=== PATIENT | female | born 1950 | race Caucasian/White ===

== ENCOUNTER 2017-04-27 21:04 | Inpatient (IN) | payer OTHER ==
[~2017-04-27] VITALS: Ht 154.9 cm; Wt 104.0 kg
[~2017-04-27 21:04] MED LIST: ASPEC81 PO; CHOLCAP5 PO; DIGO0.2518 PO; FURO80TA63 PO; GLC/500 PO; GLC5 PO; GLC500 PO; MAGN400T6 PO; NTRGSL/4 UT; OXGN; SIMV80TA2 PO; WARF3TAB PO
[2017-04-27 21:33] LABS: HEMATOCRIT 43.1 % (37-47); MEAN CELL VOLUME 92.3 fL (80-100); MEAN CORPUSCULAR HEMOGLOBIN 28.5 pg (25-34); MEAN CORPUSCULAR HGB CONC 30.9 g/dl (32-36); MEAN PLATELET VOLUME 9.7 fL (7.4-10.4); PLATELET COUNT 211 K/uL (130-400); RED BLOOD COUNT 4.67 M/uL (4.2-5.4); WHITE BLOOD COUNT 9.34 K/uL (4.8-10.8)
--- NOTE | 2017-04-27 21:46 | DIAGNOSTIC IMAGING REPORT ---
CHEST ONE VIEW PORTABLE CLINICAL HISTORY: Atypical chest pain COMPARISON STUDY: 03/14/2015 FINDINGS: There is borderline cardiac enlargement. There is mild central vascular prominence without evidence of overt edema. There is no focal pulmonary consolidation. There are no pleural effusions.[ IMPRESSION: Mild central vascular prominence without evidence of overt edema. No evidence of focal pulmonary consolidation Electronically signed by: Christopher Delacruz M.D. 04/27/2017 9:45 PM Dictated Date/Time: 04/27/2017 9:44 PM
[2017-04-27 22:11] LABS: POTASSIUM 4.3 mmol/L (3.5-5.1); SODIUM 146 mmol/L (136-145)
[2017-04-27 22:23] LABS: BLOOD UREA NITROGEN 26 mg/dl (7-18); BUN/CREATININE RATIO 32.1 (10-20); CALCIUM 10.1 mg/dl (8.5-10.1); CARBON DIOXIDE 29 mmol/L (21-32); CHLORIDE 106 mmol/L (98-107); CKMB/CK RATIO 1.3 (0-3.0); CREATININE 0.82 mg/dl (0.60-1.20); GLUCOSE 177 mg/dl (70-99)
[2017-04-27] MEDS ORDERED: INSDGIPEN SQ (22:26)
[2017-04-27] MEDS ORDERED: WARF-285 PO (22:26)
[2017-04-27] MEDS ORDERED: REPA1TAB10 PO (22:26)
[2017-04-27] MEDS ORDERED: WARF3TAB PO (22:26)
[2017-04-27] MEDS ORDERED: PRED10TA PO (22:26)
[2017-04-27] MEDS ORDERED: ASPEC81 PO (22:26)
[2017-04-27] MEDS ORDERED: CHOL1TAB42 PO (22:26)
[2017-04-27] MEDS ORDERED: GLC/500 PO (22:26)
[2017-04-27] MEDS ORDERED: LNX25 PO (22:34)
[2017-04-27] MEDS ORDERED: MAGN400T6 PO (22:34)
[2017-04-27 22:41] LABS: BASO % 0.4 %; BASO ABS # 0.04 K/uL (0-0.2); COMPLETE YES; EOS % 1.3 %; IG% 0.4 %; LYMPH % 27.8 %; MONO % 4.1 %
[2017-04-27 22:57] LABS: INR 2.1 (0.9-1.1); PROTHROMBIN TIME (PATIENT) 23.7 SECONDS (9.0-12.0)
[2017-04-27 23:03] LABS: ALKALINE PHOSPHATASE 80 U/L (45-117); ALT/SGPT 19 U/L (12-78); AST/SGOT 12 U/L (15-37); MAGNESIUM 1.8 mg/dl (1.8-2.4)
[2017-04-27] MEDS ORDERED: LISI20TA3 PO (23:34)
[2017-04-27] MEDS ORDERED: GABA-112 PO (23:35)
[2017-04-27] MEDS ORDERED: METO-551 PO (23:39)
--- NOTE | 2017-04-27 23:44 | EMERGENCY ROOM VISIT NOTE ---
History Report prepared by Thais: Fe Gutiérrez Under the Supervision of: Dr. Shreyas Gallegos D.O. First contact with patient: 21:16 Chief Complaint: CHEST PAIN Stated Complaint: CHEST PAIN Nursing Triage Summary: Pt c/o Chest pain starting three days ago, intermittent at time, became constant today. Midsternal/left chest pain. Pt states she feels like it is anxiety she let go too long. Pt has history of Afib, take coumadin at home. Pt complained of increase shortness of breath through day. History of Present Illness The patient is a 66 year old female who presents to the Emergency Room with complaints of intermittent chest pressure beginning yesterday. The patient states that the chest pressure is dull and in the center of her chest. She notes that she has associated shortness of breath and left arm numbness that occur intermittently with her chest pain. She reports that she has a history of diabetes, atrial fibrillation, hypertension, and high cholesterol. The patient states that she received nitroglycerin [employer] and her chest pain has improved. She notes that she is on 2L of oxygen at home for COPD. She denies any headache, change in vision, fevers, vomiting, and diarrhea. Source of History: patient Onset: yesterday Position: chest Quality: pressure Timing: intermittent Modifying Factors (Relieving): other (nitroglycerin) Associated Symptoms: + SOB, No diarrhea, No fevers, No headache, No nausea, No vomiting Note: Pt complains of left arm numbness. Review of Systems See HPI for pertinent positives & negatives. A total of 10 systems reviewed and were otherwise negative. Past Medical & Surgical Medical Problems: (1) Anemia (2) CHF (congestive heart failure) (3) COPD (chronic obstructive pulmonary disease) (4) Diabetes mellitus, type II (5) Dyslipidemia (6) HTN (hypertension) (7) Hypocalcemia (8) Hypomagnesemia (9) Lumbar radiculopathy Surgical Problems: (1) History of hysterectomy (2) History of total knee replacement Family History Colon cancer Coronary artery disease FATHER ( OF CT AT AGE 71 ) BROTHER SISTER Diabetes mellitus MOTHER SISTER Social History Smoking Status: Current Some Day Smoker Drug Use: none Marital Status: Housing Status: lives alone Occupation Status: retired Current/Historical Medications Scheduled Aspirin (Aspirin EC Low Dose), 81 MG PO DAILY Cholecalciferol (Vitamin D), 5,000 UNITS PO DAILY Digoxin (Digoxin), 0.25 MG PO DAILY Furosemide (Lasix), 40 MG PO DAILY Gabapentin (Neurontin), 300 MG PO HS Insulin Glargine (Lantus Solostar), 38 UNITS SQ QAM Lisinopril (Prinivil), 20 MG PO QAM Magnesium Oxide (Mag-Ox), 400 MG PO BID Magnesium Oxide (Mag-Ox), 400 MG PO BID Metformin Hcl (Glucophage), 1,000 MG PO BID Metformin Hcl (Glucophage), 500 MG PO LUNCH Metoprolol Tartrate (Lopressor), 50 MG PO BID Nitroglycerin (Nitrostat), 0.4 MG UT PRN Prednisone (Prednisone), 10 MG PO UD Repaglinide (Repaglinide), 2 MG PO AC Simvastatin (Zocor), 40 MG PO HS Warfarin Sodium (Warfarin Sodium), 4.5 MG PO 2XWK Warfarin Sodium (Coumadin), 3 MG PO 5XWK Allergies Coded Allergies: Penicillins (Verified Allergy, Mild, 03/14/15) Rofecoxib (Verified Allergy, Unknown, 03/14/15) Sulindac (Verified Allergy, Unknown, 03/14/15) Physical Exam Vital Signs Date Time Temp Pulse Resp B/P Pulse Ox O2 Delivery O2 Flow Rate FiO2 04/27/17 22:34 105 27 160/90 94 Nasal Cannula 2.0 04/27/17 22:32 04/27/17 22:04 121 28 95 Nasal Cannula 2.0 04/27/17 22:02 154/82 04/27/17 22:00 173/81 04/27/17 21:34 103 21 96 04/27/17 21:33 04/27/17 21:22 97 04/27/17 21:05 36.8 99 20 166/107 95 Nasal Cannula 2.0 04/27/17 21:05 166/107 04/27/17 21:05 96 Nasal Cannula Physical Exam GENERAL: alert, sitting up well appearing, disheveled, chronically ill appearing , no distress, non-toxic EYE EXAM: normal conjunctiva OROPHARYNX: no exudate, no erythema, lips, buccal mucosa, and tongue normal and mucous membranes are moist NECK: supple, no nuchal rigidity, no adenopathy, non-tender LUNGS: Clear to auscultation. Normal chest wall mechanics HEART: no murmurs, S1 normal and S2 normal ABDOMEN: abdomen soft, non-tender, normo-active bowel sounds, no masses, no rebound or guarding. BACK: Back is symmetrical on inspection and there is no deformity, no midline tenderness, no CVA tenderness. SKIN: no rashes and no bruising UPPER EXTREMITIES: upper extremities are grossly normal. LOWER EXTREMITIES: Calves are equal bilaterally with mild pitting edema. NEURO EXAM: Normal sensorium, cranial nerves II-XII grossly intact, normal speech, no gross weakness of arms, no gross weakness of legs. Medical Decision & Procedures ER Provider Diagnostic Interpretation: Radiology results as stated below per my review and the radiologist's interpretation: CHEST ONE VIEW PORTABLE FINDINGS: There is borderline cardiac enlargement. There is mild central vascular prominence without evidence of overt edema. There is no focal pulmonary consolidation. There are no pleural effusions.[ IMPRESSION: Mild central vascular prominence without evidence of overt edema. No evidence of focal pulmonary consolidation Electronically signed by: Christopher Delacruz M.D. 04/27/2017 9:45 PM Dictated Date/Time: 04/27/2017 9:44 PM Laboratory Results 04/27/17 20:42 Red Blood Count 4.67, Mean Corpuscular Volume 92.3, Mean Corpuscular Hemoglobin 28.5, Mean Corpuscular Hemoglobin Concent 30.9, Mean Platelet Volume 9.7, Neutrophils (%) (Auto) 66.0, Lymphocytes (%) (Auto) 27.8, Monocytes (%) (Auto) 4.1, Eosinophils (%) (Auto) 1.3, Basophils (%) (Auto) 0.4, Neutrophils # (Auto) 6.16, Lymphocytes # (Auto) 2.60, Monocytes # (Auto) 0.38, Eosinophils # (Auto) 0.12, Basophils # (Auto) 0.04 04/27/17 20:42 Test 04/27/17 20:42 04/27/17 23:27 White Blood Count 9.34 K/uL (4.8-10.8) Red Blood Count 4.67 M/uL (4.2-5.4) Hemoglobin 13.3 g/dL (12.0-16.0) Hematocrit 43.1 % (37-47) Mean Corpuscular Volume 92.3 fL (80-100) Mean Corpuscular Hemoglobin 28.5 pg (25-34) Mean Corpuscular Hemoglobin Concent 30.9 g/dl (32-36) Platelet Count 211 K/uL (130-400) Mean Platelet Volume 9.7 fL (7.4-10.4) Neutrophils (%) (Auto) 66.0 % Lymphocytes (%) (Auto) 27.8 % Monocytes (%) (Auto) 4.1 % Eosinophils (%) (Auto) 1.3 % Basophils (%) (Auto) 0.4 % Neutrophils # (Auto) 6.16 K/uL (1.4-6.5) Lymphocytes # (Auto) 2.60 K/uL (1.2-3.4) Monocytes # (Auto) 0.38 K/uL (0.11-0.59) Eosinophils # (Auto) 0.12 K/uL (0-0.5) Basophils # (Auto) 0.04 K/uL (0-0.2) RDW Standard Deviation 48.5 fL (36.4-46.3) RDW Coefficient of Variation 14.4 % (11.5-14.5) Immature Granulocyte % (Auto) 0.4 % Immature Granulocyte # (Auto) 0.04 K/uL (0.00-0.02) Prothrombin Time 23.7 SECONDS (9.0-12.0) Prothromb Time International Ratio 2.1 (0.9-1.1) Anion Gap 11.0 mmol/L (3-11) Est Creatinine Clear Calc Drug Dose 72.2 ml/min Estimated GFR () 85.8 Estimated GFR (Non- 74.0 BUN/Creatinine Ratio 32.1 (10-20) Calcium Level 10.1 mg/dl (8.5-10.1) Magnesium Level 1.8 mg/dl (1.8-2.4) Total Bilirubin 0.3 mg/dl (0.2-1) Direct Bilirubin < 0.1 mg/dl (0-0.2) Aspartate Amino Transf (AST/SGOT) 12 U/L (15-37) Alanine Aminotransferase (ALT/SGPT) 19 U/L (12-78) Alkaline Phosphatase 80 U/L (45-117) Total Creatine Kinase 55 U/L (26-192) Creatine Kinase MB 0.7 ng/ml (0.5-3.6) Creatine Kinase MB Ratio 1.3 (0-3.0) Troponin I 0.021 ng/ml (0-0.045) Total Protein 6.7 gm/dl (6.4-8.2) Albumin 3.9 gm/dl (3.4-5.0) Lipase 1003 U/L (73-393) Laboratory results per my review. ECG Indication: chest pain Rate (beats per minute): 110 Rhythm: atrial fibrillation Findings: ST depression (Anterior and Lateral), other (Poor baseline in inferior leads, early R wave progression is noted) Comparison ECG Date: 15-MAR-2015 Change: ST depression in anterior and lateral leads is new. ED Course ED COURSE: Vital signs were reviewed and showed hypertension The patients medical record was reviewed The above diagnostic studies were performed and reviewed. ED treatments and interventions as stated above. 2115: The patient was evaluated in room B9. A complete history and physical examination was performed. 2235: I reviewed the patient's case with Dr. Addison of [facility]. He will evaluate the patient for further management. 2246: Upon reevaluation, the patient is doing well.I discussed my findings with the patient and she understands and agrees with the treatment plan. Based on the patients age, coexisting illnesses, exam and lab findings the decision to treat as an inpatient was made. The patient remained stable while under my care. The patient will be evaluated for further management. Medical Decision Differential diagnoses includes but is not limited to acute coronary syndrome, myocardial infarction, pericarditis, pulmonary embolus, aortic dissection, pneumonia, pneumothorax, musculoskeletal, shingles, esophageal. Medication Reconciliation: I attest that I have personally reviewed the patient' s current medication list. Blood pressure screening: Patient was found to have an elevated blood pressure and was referred to their primary doctor for recheck and further treatment. Patient is a 66-year-old female who presents the ER for midsternal chest pain associated with shortness of breath and left arm pain. She is brought in by EMS. EKG did show new ST depressions in the lateral leads. She does have A. fib. INR was therapeutic. Chest x-ray was unremarkable. Lipase was elevated at 1000. Troponin is detectable but not positive. Based on her symptoms I'm concerned that this is cardiac. She was completed pain-free while in the ER. I discussed her case with internal medicine and she'll be worked up further for her chest pain and elevation in her lipase. Consults Time Called: 2229 Consulting Physician: Dr. Cyn Max Returned Call: 2235 I reviewed the patient's case with Dr. Addison of [facility]. He will evaluate the patient for further management. Impression Primary Impression: Acute coronary syndrome Additional Impression: Pancreatitis Scribe Attestation The scribe's documentation has been prepared under my direction and personally reviewed by me in its entirety. I confirm that the note above accurately reflects all work, treatment, procedures, and medical decision making performed by me. Departure Information Dispostion Being Evaluated By Hospitalist Referrals Kevin De Oliveira M.D. (MEDICAL) (PCP) Patient Instructions My [facility] Problem Qualifiers Additional Impression: Pancreatitis Chronicity: acute Pancreatitis type: unspecified pancreatitis type Acute pancreatitis complication: unspecified Qualified Codes: K85.90 - Acute pancreatitis without necrosis or infection, unspecified
[2017-04-28] MEDS ORDERED: LEVALBUTEROL/IPRATROPIUM NEB INH STA (00:27)
[2017-04-28] MEDS ORDERED: LEVALBUTEROL 1.25MG/0.5ML NEB INH STA (00:29)
[2017-04-28] MEDS ORDERED: IPRATROPIUM BROMIDE NEB SOLN 0.02% 2.5 ML VIAL INH STA (00:29)
[2017-04-28] MEDS ORDERED: IPRATROPIUM BROMIDE NEB SOLN 0.02% 2.5 ML VIAL INH PRN (00:30)
[2017-04-28] MEDS ORDERED: LEVALBUTEROL/IPRATROPIUM NEB INH PRN (00:30)
[2017-04-28] MEDS ORDERED: LEVALBUTEROL 1.25MG/0.5ML NEB INH PRN (00:30)
[2017-04-28] MEDS ORDERED: FUROSEMIDE INJ 40 MG in SYRINGE 0 ML IV STA (01:35)
[2017-04-28] MEDS ORDERED: FUROSEMIDE 40 MG/4 ML VIAL IV STA (01:38)
[2017-04-28] MEDS ORDERED: NITROGLYCERIN 0.4 MG SL PER TAB CHARGE SL PRN (01:45)
[2017-04-28] MEDS ORDERED: GLUCAGON FOR INJ 1 MG VIAL SQ PRN (01:45)
[2017-04-28] MEDS ORDERED: HYDROmorphone INJ 1 MG/ML SYR IV PRN (01:45)
[2017-04-28] MEDS ORDERED: NITROGLYCERIN 0.4 MG SL PER TAB CHARGE UT SCH (01:45)
[2017-04-28] MEDS ORDERED: ONDANSETRON INJ 2 MG/ML 2 ML VIAL IV PRN (01:45)
[2017-04-28] MEDS ORDERED: GLUCOSE 40% GEL 15 GM TUBE PO PRN (01:45)
[2017-04-28] MEDS ORDERED: TRAMADOL HCL 50 MG TAB PO PRN (01:45)
[2017-04-28] MEDS ORDERED: GLUCOSE 10 TABS/TUBE PO PRN (01:45)
[2017-04-28] MEDS ORDERED: ACETAMINOPHEN 325 MG TAB PO PRN (01:45)
[2017-04-28] MEDS ORDERED: DEXTROSE 50% 50 ML SYR IV PRN (01:45)
[2017-04-28 02:00] VITALS: BP 169/90; PULSE 87; TEMP 36.7; O2SAT 97; Ht 154.9 cm; Wt 104.0 kg
[2017-04-28 03:15] LABS: ARTERIAL BLD GAS O2 SATURATION 96.4 % (90-95); ARTERIAL BLOOD GAS BASE EXCESS 2.2 mEq/L (-9-1.8); ARTERIAL BLOOD GAS HCO3 27 mmol/L (19-24); ARTERIAL BLOOD GAS PO2 86 mm/Hg (80-95); ARTERIAL BLOOD GAS pH 7.41 (7.35-7.45)
[2017-04-28 03:19] LABS: ALLEN TEST POS (POS); O2 ADMINISTRATION 3L
[2017-04-28 04:00] VITALS: BP 140/90; PULSE 93; TEMP 36.6; O2SAT 97
[2017-04-28 05:46] LABS: BASO % 0.3 %; BASO ABS # 0.02 K/uL (0-0.2); COMPLETE YES; EOS % 1.1 %; HEMATOCRIT 39.4 % (37-47); IG% 0.5 %; LYMPH % 23.8 %; LYMPH ABS # 1.87 K/uL (1.2-3.4); MEAN CELL VOLUME 91.4 fL (80-100); MEAN CORPUSCULAR HEMOGLOBIN 29.2 pg (25-34); MONO % 6.1 %; NEUT % 68.2 %; PLATELET COUNT 154 K/uL (130-400); RED BLOOD COUNT 4.31 M/uL (4.2-5.4); WHITE BLOOD COUNT 7.87 K/uL (4.8-10.8)
[2017-04-28 05:56] LABS: INR 2.1 (0.9-1.1); PROTHROMBIN TIME (PATIENT) 22.7 SECONDS (9.0-12.0)
[2017-04-28] MEDS ORDERED: PNEUMOCOCCAL ADMINISTRATION CHARGE ONE (06:15)
[2017-04-28] MEDS ORDERED: PNEUMOCOCCAL POLYSACCHARIDES 25 MCG/0.5 ML VIAL/SYR IM. ONE (06:15)
[2017-04-28 06:22] LABS: BUN/CREATININE RATIO 35.7 (10-20); CALCIUM 9.8 mg/dl (8.5-10.1); CREATININE 0.69 mg/dl (0.60-1.20); POTASSIUM 3.8 mmol/L (3.5-5.1)
--- NOTE | 2017-04-28 07:05 | HISTORY & PHYSICAL EXAMINATION ---
DATE OF ADMISSION: 04/28/2017 PRIMARY CARE DOCTOR: Dr. De Oliveira CHIEF COMPLAINT: Chest pain, shortness of breath. HISTORY OF PRESENT ILLNESS: Hx obtained from px and records. Medical history is significant for chronic resp failure 2 to COPD on home O2, chronic diastolic heart failure EF of 55%, CAD as per records, AFib on Coumadin, DM2 on oral meds and ongoing tobacco abuse. Recent confinement was in February 2015 for chest pain secondary to hypertensive urgency. Yesterday, the patient noted chest pressure and shortness of breath, occasionally radiating to the left arm. Usual dry cough symptoms. The patient complained of some achy upper abdominal discomfort, similar to while she is getting injections. No nausea, no vomiting. Compliant with home meds. Has some leg swelling. No unusual weight gain. Patient was brought to the Emergency Room. MEDICAL HISTORY: As above. [place] [facility] [place] (Dr. Jackson). stable at the time of exam as per note. February 2015, no inducible ischemia on stress echocardiogram. SURGERIES: Hysterectomy, knee replacement HOME MEDICATIONS: Include; Nitrostat, repaglinide, Zocor, Coumadin, lisinopril, Glucophage, Lopressor, mag oxide, aspirin, vitamin D, digoxin, Lasix, Neurontin and Lantus. ALLERGIES: TO SULINDAC, ROFECOXIB AND PENICILLIN. FAMILY HISTORY: Heart disease. PERSONAL AND SOCIAL HISTORY: Past tobacco abuse, one-fourth to half-pack daily. No chronic intake of alcoholic beverages. REVIEW OF SYSTEMS: As per HPI, all other ROS negative. PHYSICAL EXAMINATION: VITAL SIGNS: Blood pressure was noted to be 166/107, pulse rate 103, RR 28, temperature 36.8 and sats 92 on two liters. GENERAL: Noted to be in minimal respiratory distress. Obese. HEENT: [place] palpebral conjunctivae. Dry mucosa. NECK: Short neck. LUNGS: Decreased breath sounds. Occasional wheeze. HEART: irregular. Tachycardic. ABDOMEN: Some distension. EXTREMITIES: Bilateral lower extremity edema, no tenderness NEUROLOGIC: No gross focality. LABORATORIES: Hemoglobin was noted to be 13.3, white cell count 10 platelets noted to be 211. Sodium noted to be 140, chloride 106, CO2 29, BUN 26, creatinine 0.8, glucose 177. BNP 1445, lipase 1003. Chest x-ray; some congestion. EKG as per my interpretation; rate 110. AFib. ST depression on the anterolateral leads. ASSESSMENT: 1. Acute on chronic hypoxemic resp failure 2 to mild congestive heart failure exacerbation 2. history of chronic obstructive pulmonary disease 3. chest pain 2 to CHF and uncontrolled high blood pressure 4. ongoing tobacco 5. atrial fibrillation, rate slightly high, INR therapeutic 6. DM2 on oral medications, well-controlled as of recent outpx HgA1c of 6.5 in March 2017 7. hyperlipasemia. ? pancreatitis No abdominal tenderness on exam PLAN: PCU supplemental O2 baseline ABG IV Lasix for 1 dose now ffd by home regimen 2D echo, Cardio consult RE decompensated HF. (patient known to Dr. Jackson) Strict IOs. Daily weights. CHF education. titrate anti-HTN meds Follow lipase. Gallbladder ultrasound. May need GI consultation. continue home basal insulin, ISS BG goal 140-180. nicotine patch DVT prophylaxis, Coumadin. INR 2-3. Full code. MTDD
--- NOTE | 2017-04-28 07:13 | DIAGNOSTIC IMAGING REPORT ---
ABDOMINAL ULTRASOUND, RIGHT UPPER QUADRANT HISTORY: Abdominal pain. COMPARISON: Right upper quadrant ultrasound April 25, [address] of the abdomen and pelvis November 27, 2013. FINDINGS: Hepatic echogenicity is increased suggestive of fatty infiltration with areas of sparing within the gallbladder fossa. There is no biliary ductal dilatation. There are no gallstones. No gallbladder wall thickening is noted. There may be minimal sludge within the gallbladder. The pancreatic body is normal. The pancreas is slightly heterogeneous, nonspecific finding. There is no right hydronephrosis. IMPRESSION: 1. No gallstones or biliary ductal dilatation. Small amount of sludge within the gallbladder. No gallbladder wall thickening. 2. Fatty liver. 3. Slight heterogeneity of the pancreatic parenchyma, a nonspecific finding. Electronically signed by: Ladarius Nguyen M.D. 04/28/2017 7:12 AM Dictated Date/Time: 04/28/2017 7:10 AM
[2017-04-28 07:41] VITALS: BP 152/68; PULSE 94; TEMP 36.6; O2SAT 98
[2017-04-28] MEDS: INSULIN ASPART 100 UNITS/ML 3 ML PEN SC SCH ×2 (08:04→12:26)
[2017-04-28] MEDS ORDERED: LISINOPRIL 20 MG TAB PO SCH (09:00)
[2017-04-28] MEDS ORDERED: METOPROLOL TARTRATE 50 MG TAB PO SCH (09:00)
[2017-04-28] MEDS ORDERED: ASPIRIN 81 MG ECTAB PO SCH (09:00)
[2017-04-28] MEDS ORDERED: NICOTINE 7 MG/24 HR TDSY TD SCH (09:00)
[2017-04-28] MEDS ORDERED: FUROSEMIDE 80 MG TAB PO SCH (09:00)
[2017-04-28] MEDS ORDERED: INSULIN GLARGINE SOLOSTAR 100 UNITS/ML 3 ML PEN SC SCH ×2 (09:00)
[2017-04-28] MEDS ORDERED: PERFLUTREN LIPID MICROSPHERE (DEFINITY) IV ONE (09:42)
[2017-04-28 11:34] VITALS: BP 133/73; PULSE 94; TEMP 36.4; O2SAT 99
--- NOTE | 2017-04-28 14:55 | Progress Note ---
Internal Med Progress Note Date of Service: Apr 28, 2017. Provider Documentation: SUBJECTIVE: The patient was seen and examined Denies any symptoms NO CP,palpitation,SOB NO abdominal pain,nausea and or vomiting Wants to go home OBJECTIVE: Vital Signs-as noted below Exam: General-no distress at rest Eyes-normal ENT-normal Neck-supple Lungs-Clear to ausucltate bilaterally Heart-Regular,no murmur appreciated Abdomen-benign,no masses,bowel sound present Extremities-Trace edema bilaterally Neuro-AAOc3 Lab data as noted below. ASSESSMENT & PLAN: Mild CHF Presented with Acute on chronic hypoxemic resp failure Complicated by chronic obstructive pulmonary disease IV Lasix for 1 dose now ffd by home regimen 2D echo, Cardio consult RE decompensated HF. (patient known to Dr. Jackson) Strict IOs. Daily weights. CHF education. Appreciate Cardiology input-recommended home with OP Cardiology follow up Chest pain 2 to CHF and uncontrolled high blood pressure and ongoing tobacco Serial Dhara are negative No ACS Again -OP cardiology appointment Atrial fibrillation, rate slightly high, INR therapeutic DM2 on oral medications, well-controlled as of recent outpx HgA1c of 6.5 in March 2017 SSI Hyperlipasemia. Acute pancreatitis Lipase elevated No abdominal tenderness on exam Level normalized US GB unremarkable DVT prophylaxis, Coumadin. INR 2-3. Full code. Discharge today Vital Signs: Date Time Temp Pulse Resp B/P (MAP) Pulse Ox O2 Delivery O2 Flow Rate FiO2 04/28/17 12:00 Nasal Cannula 3.0 04/28/17 11:34 36.4 94 20 133/73 (93) 99 Nasal Cannula 3.0 04/28/17 08:00 Nasal Cannula 3.0 04/28/17 07:41 36.6 94 16 152/68 (96) 98 Nasal Cannula 3.0 04/28/17 04:00 Nasal Cannula 3.0 04/28/17 04:00 36.6 93 22 140/90 (107) 97 Nasal Cannula 3.0 04/28/17 02:00 36.7 87 20 169/90 97 Nasal Cannula 2.0 04/28/17 01:21 36.8 89 22 169/90 97 04/28/17 00:44 95 22 95 Nasal Cannula 2.0 04/28/17 00:32 166/85 04/28/17 00:02 175/86 04/27/17 23:47 158/75 04/27/17 23:44 102 97 04/27/17 23:39 105 28 158/75 92 Nasal Cannula 2.0 04/27/17 23:32 04/27/17 23:09 103 21 95 04/27/17 23:02 185/59 04/27/17 22:39 95 22 95 04/27/17 22:34 105 27 160/90 94 Nasal Cannula 2.0 04/27/17 22:32 04/27/17 22:04 121 28 95 Nasal Cannula 2.0 04/27/17 22:02 154/82 04/27/17 22:00 173/81 04/27/17 21:34 103 21 96 04/27/17 21:33 04/27/17 21:22 97 04/27/17 21:05 36.8 99 20 166/107 95 Nasal Cannula 2.0 04/27/17 21:05 166/107 04/27/17 21:05 96 Nasal Cannula Lab Results: Results Past 24 Hours Test 04/27/17 20:42 04/27/17 23:27 04/28/17 02:19 04/28/17 05:36 Range/Units White Blood Count 9.34 7.87 4.8-10.8 K/uL Red Blood Count 4.67 4.31 4.2-5.4 M/uL Hemoglobin 13.3 12.6 12.0-16.0 g/dL Hematocrit 43.1 39.4 37-47 % Mean Corpuscular Volume 92.3 91.4 80-100 fL Mean Corpuscular Hemoglobin 28.5 29.2 25-34 pg Mean Corpuscular Hemoglobin Concent 30.9 32.0 32-36 g/dl Platelet Count 211 154 130-400 K/uL Mean Platelet Volume 9.7 9.0 7.4-10.4 fL Neutrophils (%) (Auto) 66.0 68.2 % Lymphocytes (%) (Auto) 27.8 23.8 % Monocytes (%) (Auto) 4.1 6.1 % Eosinophils (%) (Auto) 1.3 1.1 % Basophils (%) (Auto) 0.4 0.3 % Neutrophils # (Auto) 6.16 5.37 1.4-6.5 K/uL Lymphocytes # (Auto) 2.60 1.87 1.2-3.4 K/uL Monocytes # (Auto) 0.38 0.48 0.11-0.59 K/uL Eosinophils # (Auto) 0.12 0.09 0-0.5 K/uL Basophils # (Auto) 0.04 0.02 0-0.2 K/uL RDW Standard Deviation 48.5 47.9 36.4-46.3 fL RDW Coefficient of Variation 14.4 14.3 11.5-14.5 % Immature Granulocyte % (Auto) 0.4 0.5 % Immature Granulocyte # (Auto) 0.04 0.04 0.00-0.02 K/uL Prothrombin Time 23.7 22.7 9.0-12.0 SECONDS Prothromb Time International Ratio 2.1 2.1 0.9-1.1 Sodium Level 146 143 136-145 mmol/L Potassium Level 4.3 3.8 3.5-5.1 mmol/L Chloride Level 106 104 98-107 mmol/L Carbon Dioxide Level 29 34 21-32 mmol/L Anion Gap 11.0 5.0 3-11 mmol/L Blood Urea Nitrogen 26 25 7-18 mg/dl Creatinine 0.82 0.69 0.60-1.20 mg/dl Est Creatinine Clear Calc Drug Dose 72.2 87.8 ml/min Estimated GFR () 85.8 104.4 Estimated GFR (Non- 74.0 90.1 BUN/Creatinine Ratio 32.1 35.7 10-20 Random Glucose 177 194 70-99 mg/dl Calcium Level 10.1 9.8 8.5-10.1 mg/dl Magnesium Level 1.8 1.8-2.4 mg/dl Total Bilirubin 0.3 0.2-1 mg/dl Direct Bilirubin < 0.1 0-0.2 mg/dl Aspartate Amino Transf (AST/SGOT) 12 15-37 U/L Alanine Aminotransferase (ALT/SGPT) 19 12-78 U/L Alkaline Phosphatase 80 45-117 U/L Total Creatine Kinase 55 26-192 U/L Creatine Kinase MB 0.7 0.5-3.6 ng/ml Creatine Kinase MB Ratio 1.3 0-3.0 Troponin I 0.021 0.023 0-0.045 ng/ml Pro-B-Type Natriuretic Peptide 1445 0-900 pg/ml Total Protein 6.7 6.4-8.2 gm/dl Albumin 3.9 3.4-5.0 gm/dl Lipase 1003 176 73-393 U/L Thyroid Stimulating Hormone (TSH) 3.060 0.300-4.500 uIu/ml Digoxin Level 0.8 0.8-2.0 ng/ml Arterial Blood pH 7.41 7.35-7.45 Arterial Blood Partial Pressure CO2 43 35-46 mmHg Arterial Blood Partial Pressure O2 86 80-95 mm/Hg Arterial Blood HCO3 27 19-24 mmol/L Arterial Blood Oxygen Saturation 96.4 90-95 % Arterial Blood Base Excess 2.2 -9-1.8 mEq/L Arterial Blood Gas Delivery 3L Olivier Test POS POS Triglycerides Level 155 0-150 mg/dl Test 04/28/17 06:48 04/28/17 10:51 Range/Units Bedside Glucose 197 191 70-90 mg/dl
--- NOTE | 2017-04-28 14:59 | Discharge Instructions ---
Discharge Instructions Date of Service Apr 28, 2017. Admission Reason for Admission: Respiratory Failure, Acute Discharge Discharge Diagnosis / Problem: Atypical Chest pain-No ACS Discharge Goals Goal(s): Prevent Disease Progression Activity Recommendations Activity Limitations: resume your previous activity . Instructions / Follow-Up Instructions / Follow-Up Dr Weiss on 05/02/17 at 12:[address] Jackson's office will call with appointment Current Hospital Diet Patient's current hospital diet: Diabetes Type 2 Diet, AHA Diet (Heart Healthy) Discharge Diet Recommended Diet: AHA Diet (Heart Healthy), Diabetes Type 2 Diet Fluid Restriction: 1500 ml (6 cups) Pending Studies Studies pending at discharge: no Laboratory Results Lipid Panel Test 04/28/17 05:36 Range/Units Triglycerides Level 155 H 0-150 mg/dl Medical Emergencies . Who to Call and When: Medical Emergencies: If at any time you feel your situation is an emergency, please call 911 immediately. . Non-Emergent Contact Non-Emergency issues call your: Primary Care Provider . Past History Medical & Surgical History: (1) HTN (hypertension) (2) CHF (congestive heart failure) (3) Chest pain (4) Pancreatitis (5) Respiratory failure, acute (6) CHF (congestive heart failure) (7) HTN (hypertension) (8) Atrial fibrillation with rapid ventricular response (9) Hypomagnesemia (10) Hypocalcemia . "Provider Documentation" section prepared by Mamadou Santo. . VTE Core Measure Inpt VTE Proph given/why not?: Warfarin (Coumadin)
--- NOTE | 2017-04-28 15:10 | CARDIOLOGY CONSULTATION ---
DATE OF CONSULTATION: 04/28/2017 DATE OF CONSULTATION: 04/28/2017. [facility]. REASON FOR CONSULTATION: Chest pain. HISTORY OF PRESENT ILLNESS: The patient is a 66-year-old female who is usually followed by Dr. Johnathon Jackson through our cardiology clinic. She has a history of atrial fibrillation as well as obesity, diabetes and oxygen dependent COPD. Yesterday she was out and developed lower anterior chest discomfort. Her pain was stabbing pain which increased with inspiration. It is very reproducible by palpation across the lower sternoclavicular joints and xiphoid process. After admission her chest discomfort has improved. Her EKG shows no acute changes. It essentially is unchanged from previous studies. Her cardiac markers are not elevated. ALLERGIES: PENICILLIN, ROCEPHIN, AND SULINDAC. PAST MEDICAL HISTORY: As outlined above, the patient has a history of chronic atrial fibrillation for which she is on rate control and Coumadin. She is treated for obesity and diabetes. She also has severe oxygen dependent COPD and a history of right-sided heart failure. She has primary thrombocytopenia along with polymyalgia rheumatica. SOCIAL HISTORY: She is currently a nonsmoker. FAMILY MEDICAL HISTORY: Noncontributory. REVIEW OF SYSTEMS: A 10-point review of systems is negative except for the history of chief complaint. PHYSICAL EXAMINATION: GENERAL: She is alert and oriented, no acute distress. HEAD, EYES, EARS, NOSE, AND THROAT: She is normocephalic. Pupils are equal and reactive to light. Extraocular muscles are intact bilaterally. NECK: The neck veins are flat. Carotids have good upstrokes bilaterally without bruits. Thyroid is nonpalpable. RESPIRATORY: Breath sounds equal bilaterally and clear to auscultation. CARDIOVASCULAR: Heart has a regular rhythm. Normal S1, S2. No S3, S4. No cardiac rubs or murmurs. GASTROINTESTINAL: Abdomen is soft, nontender without organomegaly. EXTREMITIES: Free of edema, digit clubbing, or cyanosis. NEUROLOGIC: Grossly intact. SKIN: Warm to touch. LYMPH NODES: Negative to palpation. IMPRESSION: 1. Noncardiac chest pain. 2. Pain is reproducible with palpation of the lower sternal costal joint and xiphoid process. 3. Chronic atrial fibrillation. 4. Polymyalgia rheumatica. 5. Diabetes. 6. Chronic obstructive pulmonary disease. RECOMMENDATIONS: I believe the patient can be discharged to outpatient followup. I will make arrangements for early followup with Dr. Jackson. She should continue her current medications and she can take Tylenol for her chest discomfort. If she has any problems she can call our office.
[2017-04-28 15:15] VITALS: BP 133/73; PULSE 94; TEMP 36.4; O2SAT 99
[2017-04-28] MEDS ORDERED: DIGOXIN 0.25 MG TAB PO SCH (16:00)
--- NOTE | 2017-04-28 16:10 | ECHOCARDIOGRAM REPORT ---
*NOTICE TO RECEIVING DEMOCRAT AGENCY This information is strictly Confidential and protected under [place] law. [place] law prohibits you from making any further disclosure of this information unless further disclosure is expressly permitted by the written consent of the person to whom it pertains or is authorized by law. A general authorization for the release of medical or other information is not sufficient for this purpose. Hospital accepts no responsibility if the information is made available to any other person, INCLUDING THE PATIENT. Interpretation Summary * Name: ABISAI THURMAN I Study Date: 04/28/2017 09:20 AM BP: 140/90 mmHg * Patient Location: C.2E\S\E211\S\1 HR: 92 * : 1950 (M/d/yyyy) Gender: Female Height: 61 in * Age: 66 yrs Ethnicity: [place] Weight: 220 lb * Ordering Physician: Jaylon Addison * Referring Physician: Self, Referred * Performed By: Sanna Zamora RCS * * Reason For Study: CHEST PAIN / CHF * BSA: 2.0 m2 * -- Conclusions -- * There is moderate concentric left ventricular hypertrophy. * Left ventricular systolic function is normal. * Ejection Fraction = 60-65%. * The left ventricular wall motion is normal. * The right ventricular systolic function is normal. * The left atrium is moderately dilated. * The right atrium is moderately dilated. * No significant valvular pathology. Procedure Details * A complete two-dimensional transthoracic echocardiogram was performed (2D, M-mode, Doppler and color flow Doppler). * The study was technically difficult, but visualization was adequate with the administration of Definity ultrasound contrast. * The study was technically difficult. * A contrast injection of Definity was performed to improve assessment of LV function. * Contrast was injected into an intravenous site in the left arm. * One vial of Definity ultrasound contrast was diluted in normal saline to a total volume of 10 ml. A total of '2' ml of solution was administered during imaging. * Lot # [id number] of Definity utilized for procedure. * Expiration date JUN 14. * The attending nurse who injected the contrast agent was FRAN CHEN RN. Left Ventricle * The left ventricle is normal in size. * There is moderate concentric left ventricular hypertrophy. * Ejection Fraction = 60-65%. * Left ventricular systolic function is normal. * The left ventricular wall motion is normal. Right Ventricle * The right ventricle is normal in size and function. * There is normal right ventricular wall thickness. * The right ventricular systolic function is normal. Atria * The left atrium is moderately dilated. * The right atrium is moderately dilated. * The interatrial septum is intact with no evidence for an atrial septal defect. Mitral Valve * There is moderate mitral annular calcification. * There is no mitral valve stenosis. * There is no mitral regurgitation noted. Tricuspid Valve * The tricuspid valve is not well visualized, but is grossly normal. * There is trace tricuspid regurgitation. Aortic Valve * Aortic valve sclerosis mild, without significant aortic valvular stenosis. * No aortic regurgitation is present. Pulmonic Valve * The pulmonic valve is normal in structure and function. * There is no pulmonic valvular regurgitation. Great Vessels * The aortic root is normal size. * No obvious dissection could be visualized. * The pulmonary artery is normal size. Pericardium/Pleural * There is no pericardial effusion. MMode 2D Measurements and Calculations IVSd 2.1 cm IVSs 2.4 cm LVIDd 4.1 cm LVIDs 2.7 cm LVPWd 1.8 cm LVPWs 2.1 cm IVS/LVPW 1.2 FS 34.8 % EDV(Teich) 73.3 ml ESV(Teich) 26.0 ml EF(Teich) 64.5 % EDV(cubed) 67.8 ml ESV(cubed) 18.8 ml EF(cubed) 72.3 % % IVS thick 11.5 % % LVPW thick 18.2 % LV mass(C)d 370.6 grams LV mass(C)dI 188.4 grams/m\S\2 LV mass(C)s 289.6 grams LV mass(C)sI 147.2 grams/m\S\2 SV(Teich) 47.3 ml SI(Teich) 24.0 ml/m\S\2 SV(cubed) 49.0 ml SI(cubed) 24.9 ml/m\S\2 Ao root diam 2.7 cm Ao root area 5.6 cm\S\2 LA dimension 4.7 cm LA/Ao 1.8 LVOT diam 1.6 cm LVOT area 2.0 cm\S\2 LVAd ap4 28.2 cm\S\2 LVLd ap4 7.1 cm EDV(MOD-sp4) 91.3 ml EDV(sp4-el) 94.7 ml LVAs ap4 15.2 cm\S\2 LVLs ap4 5.7 cm ESV(MOD-sp4) 34.4 ml ESV(sp4-el) 34.4 ml EF(MOD-sp4) 62.3 % EF(sp4-el) 63.7 % LVAd ap2 23.1 cm\S\2 LVLd ap2 7.5 cm EDV(MOD-sp2) 63.2 ml EDV(sp2-el) 60.7 ml LVAs ap2 10.3 cm\S\2 LVLs ap2 4.8 cm ESV(MOD-sp2) 22.2 ml ESV(sp2-el) 19.0 ml EF(MOD-sp2) 64.9 % EF(sp2-el) 68.8 % LVLd %diff 4.7 % EDV(MOD-bp) 77.4 ml LVLs %diff -19.95 % ESV(MOD-bp) 28.1 ml EF(MOD-bp) 63.7 % SV(MOD-sp4) 56.9 ml SI(MOD-sp4) 28.9 ml/m\S\2 SV(MOD-sp2) 41.0 ml SI(MOD-sp2) 20.9 ml/m\S\2 SV(MOD-bp) 49.3 ml SI(MOD-bp) 25.1 ml/m\S\2 SV(sp4-el) 60.3 ml SI(sp4-el) 30.7 ml/m\S\2 SV(sp2-el) 41.8 ml SI(sp2-el) 21.2 ml/m\S\2 Doppler Measurements and Calculations MV E max sophie 93.3 cm/sec MV P1/2t max sophie 98.9 cm/sec MV P1/2t 90.0 msec MVA(P1/2t) 2.4 cm\S\2 MV dec slope 321.8 cm/sec\S\2 MV dec time 0.27 sec PA V2 max 111.8 cm/sec PA max PG 5.0 mmHg PI max sophie 182.4 cm/sec PI max PG 13.3 mmHg PI dec slope 125.6 cm/sec\S\2 PI P1/2t 425.6 msec TR max sophie 290.1 cm/sec
[2017-04-28] MEDS ORDERED: SIMVASTATIN 40 MG TAB PO SCH (21:00)
[2017-04-28] MEDS ORDERED: GABAPENTIN 100 MG CAP PO SCH (21:00)
--- NOTE | 2017-04-29 12:49 | Discharge Summary ---
Discharge Summary Date of Service Apr 29, 2017. Discharge Summary Admission Date: Apr 28, 2017 at 00:56 Discharge Date: Apr 28, 2017 Discharge Disposition: Home Principal Diagnosis: Atypical Chest pain-No ACS Secondary Diagnoses/Problems: Please see H&P and Hospital Progress note Consultations: Cardiology Medication Reconciliation Continued Medications: Aspirin (Aspirin EC Low Dose) 81 Mg Ectab 81 MG PO DAILY Cholecalciferol (Vitamin D) 5,000 Unit Tab 5000 UNITS PO DAILY Digoxin (Digoxin) 0.25 Mg Tab 0.25 MG PO DAILY Furosemide (Lasix) 80 Mg Tab 40 MG PO DAILY, TAB 1/2 tablet dose Gabapentin (Neurontin) 100 Mg Cap 300 MG PO HS, CAP Insulin Glargine (Lantus Solostar) 100 Unit/Ml Inj 38 UNITS SQ QAM, #15 Lisinopril (Prinivil) 20 Mg Tab 20 MG PO QAM, TAB Magnesium Oxide (Mag-Ox) 400 Mg Tab 400 MG PO BID, TAB Magnesium Oxide (Mag-Ox) 400 Mg Tab 400 MG PO BID, TAB Metformin Hcl (Glucophage) 500 Mg Tab 1000 MG PO BID, TAB 2 TABLETS WITH BREAKFAST AND HS Metformin Hcl (Glucophage) 500 Mg Tab 500 MG PO LUNCH, TAB TAKE WITH LUNCH Metoprolol Tartrate (Lopressor) 50 Mg Tab 50 MG PO BID, TAB Nitroglycerin (Nitrostat) 0.4 Mg Tab 0.4 MG UT PRN, 0 Refills NEEDED FOR CHEST PAIN ; ONE TABLET UNDER THE TONGUE EVERY 5 MINUTES, UP TO 3 DOSES. Prednisone (Prednisone) 10 Mg Tab 10 MG PO UD, TAB RESQUE KIT UD Repaglinide (Repaglinide) 2 Mg Tab 2 MG PO AC, #180 Simvastatin (Zocor) 80 Mg Tab 40 MG PO HS, 0 Refills Warfarin Sodium (Warfarin Sodium) 3 Mg Tab 4.5 MG PO 2XWK, #45 TAKE ON SUN & THUR Warfarin Sodium (Coumadin) 3 Mg Tab 3 MG PO 5XWK, TAB TAKE MON, TU, WED,FRI, SAT Admission Information HPI (per Admitting provider): DATE OF ADMISSION: 04/28/2017 PRIMARY CARE DOCTOR: Dr. De Oliveira CHIEF COMPLAINT: Chest pain, shortness of breath. HISTORY OF PRESENT ILLNESS: Hx obtained from px and records. Medical history is significant for chronic resp failure 2 to COPD on home O2, chronic diastolic heart failure EF of 55%, CAD as per records, AFib on Coumadin, DM2 on oral meds and ongoing tobacco abuse. Recent confinement was in February 2015 for chest pain secondary to hypertensive urgency. Yesterday, the patient noted chest pressure and shortness of breath, occasionally radiating to the left arm. Usual dry cough symptoms. The patient complained of some achy upper abdominal discomfort, similar to while she is getting injections. No nausea, no vomiting. Compliant with home meds. Has some leg swelling. No unusual weight gain. Patient was brought to the Emergency Room. MEDICAL HISTORY: As above. [place] [facility] [place] (Dr. [place]). stable at the time of exam as per note. February 2015, no inducible ischemia on stress echocardiogram. SURGERIES: Hysterectomy, knee replacement HOME MEDICATIONS: Include; Nitrostat, repaglinide, Zocor, Coumadin, lisinopril, Glucophage, Lopressor, mag oxide, aspirin, vitamin D, digoxin, Lasix, Neurontin and Lantus. ALLERGIES: TO SULINDAC, ROFECOXIB AND PENICILLIN. FAMILY HISTORY: Heart disease. PERSONAL AND SOCIAL HISTORY: Past tobacco abuse, one-fourth to half-pack daily. No chronic intake of alcoholic beverages. REVIEW OF SYSTEMS: As per HPI, all other ROS negative. PHYSICAL EXAMINATION: VITAL SIGNS: Blood pressure was noted to be 166/107, pulse rate 103, RR 28, temperature 36.8 and sats 92 on two liters. GENERAL: Noted to be in minimal respiratory distress. Obese. HEENT: [place] palpebral conjunctivae. Dry mucosa. NECK: Short neck. LUNGS: Decreased breath sounds. Occasional wheeze. HEART: irregular. Tachycardic. ABDOMEN: Some distension. EXTREMITIES: Bilateral lower extremity edema, no tenderness NEUROLOGIC: No gross focality. LABORATORIES: Hemoglobin was noted to be 13.3, white cell count 10 platelets noted to be 211. Sodium noted to be 140, chloride 106, CO2 29, BUN 26, creatinine 0.8, glucose 177. BNP 1445, lipase 1003. Chest x-ray; some congestion. EKG as per my interpretation; rate 110. AFib. ST depression on the anterolateral leads. ASSESSMENT: 1. Acute on chronic hypoxemic resp failure 2 to mild congestive heart failure exacerbation 2. history of chronic obstructive pulmonary disease 3. chest pain 2 to CHF and uncontrolled high blood pressure 4. ongoing tobacco 5. atrial fibrillation, rate slightly high, INR therapeutic 6. DM2 on oral medications, well-controlled as of recent outpx HgA1c of 6.5 in March 2017 7. hyperlipasemia. ? pancreatitis No abdominal tenderness on exam PLAN: PCU supplemental O2 baseline ABG IV Lasix for 1 dose now ffd by home regimen 2D echo, Cardio consult RE decompensated HF. (patient known to Dr. Jackson) Strict IOs. Daily weights. CHF education. titrate anti-HTN meds Follow lipase. Gallbladder ultrasound. May need GI consultation. continue home basal insulin, ISS BG goal 140-180. nicotine patch DVT prophylaxis, Coumadin. INR 2-3. Full code. Dictated: 04/28/17516 Transcribed: 04/28/17703 <Electronically signed by Jaylon Addison M.D.> Signed: 04/29/17 1727 ES Jaylon Addison M.D. Hospital Course Mild CHF Presented with Acute on chronic hypoxemic resp failure Complicated by chronic obstructive pulmonary disease IV Lasix for 1 dose now ffd by home regimen 2D echo, Cardio consult RE decompensated HF. (patient known to Dr. Jackson) Strict IOs. Daily weights. CHF education. Appreciate Cardiology input-recommended home with OP Cardiology follow up Chest pain 2 to CHF and uncontrolled high blood pressure and ongoing tobacco Serial Dhara are negative No ACS Again -OP cardiology appointment Atrial fibrillation, rate slightly high, INR therapeutic DM2 on oral medications, well-controlled as of recent outpx HgA1c of 6.5 in March 2017 SSI Hyperlipasemia. Acute pancreatitis Lipase elevated No abdominal tenderness on exam Level normalized US GB unremarkable DVT prophylaxis, Coumadin. INR 2-3. Full code. Discharge today Total time spent on discharge = 35 minutes This includes examination of the patient, discharge planning, medication reconciliation, and communication with other providers. Discharge Instructions Date of Service Apr 28, 2017. Admission Reason for Admission: Respiratory Failure, Acute Discharge Discharge Diagnosis / Problem: Atypical Chest pain-No ACS Discharge Goals Goal(s): Prevent Disease Progression Activity Recommendations Activity Limitations: resume your previous activity . Instructions / Follow-Up Instructions / Follow-Up Dr Weiss on 05/02/17 at 12:[address] Jackson's office will call with appointment Current Hospital Diet Patient's current hospital diet: Diabetes Type 2 Diet, AHA Diet (Heart Healthy) Discharge Diet Recommended Diet: AHA Diet (Heart Healthy), Diabetes Type 2 Diet Fluid Restriction: 1500 ml (6 cups) Pending Studies Studies pending at discharge: no Laboratory Results Lipid Panel Test 04/28/17 05:36 Range/Units Triglycerides Level 155 H 0-150 mg/dl Medical Emergencies . Who to Call and When: Medical Emergencies: If at any time you feel your situation is an emergency, please call 911 immediately. . Non-Emergent Contact Non-Emergency issues call your: Primary Care Provider . Past History Medical & Surgical History: (1) HTN (hypertension) (2) CHF (congestive heart failure) (3) Chest pain (4) Pancreatitis (5) Respiratory failure, acute (6) CHF (congestive heart failure) (7) HTN (hypertension) (8) Atrial fibrillation with rapid ventricular response (9) Hypomagnesemia (10) Hypocalcemia . "Provider Documentation" section prepared by Mamadou Santo. . VTE Core Measure Inpt VTE Proph given/why not?: Warfarin (Coumadin) Additional Copies To Kevin De Oliveira M.D. (MEDICAL)
== END 2017-04-28 15:33 | disposition home or self-care (01) | DRG 189 ==
LOC: ENRESERVTM → ENRESERVDT → EDBD 21:04 → C.EDB 21:05 → C.2E 04-28 00:56
PROVIDERS: ADMIT Internal Medicine; ATTEND Internal Medicine
DX: J96.21 Acute and chronic respiratory failure with hypoxia (principal); K85.90 Acute pancreatitis without necrosis or infection, unspecified; Z68.41 Body mass index [BMI] 40.0-44.9, adult; R07.89 Other chest pain; J44.9 Chronic obstructive pulmonary disease, unspecified; F17.200 Nicotine dependence, unspecified, uncomplicated; I50.9 Heart failure, unspecified; I48.2 Chronic atrial fibrillation; E11.9 Type 2 diabetes mellitus without complications; E66.9 Obesity, unspecified; M35.3 Polymyalgia rheumatica; R74.8 Abnormal levels of other serum enzymes; Z96.659 Presence of unspecified artificial knee joint; M54.16 Radiculopathy, lumbar region; Z79.01 Long term (current) use of anticoagulants; Z79.84 Long term (current) use of oral hypoglycemic drugs; Z79.82 Long term (current) use of aspirin; Z99.81 Dependence on supplemental oxygen; Z82.49 Family history of ischemic heart disease and other diseases of the circulatory system; Z79.4 Long term (current) use of insulin; Z79.899 Other long term (current) drug therapy; Z79.52 Long term (current) use of systemic steroids

== ENCOUNTER 2017-12-22 18:14 | Inpatient (IN) | payer OTHER ==
[~2017-12-22] VITALS: Ht 162.6 cm; Wt 113.5 kg
[~2017-12-22 18:14] MED LIST changes: -ASPEC81 PO; -CHOLCAP5 PO; -DIGO0.2518 PO; -FURO80TA63 PO; -GLC/500 PO; -GLC5 PO; -GLC500 PO; +LNX25 PO; -OXGN
[2017-12-22] MEDS ORDERED: DIGO0.2519 PO (18:36)
[2017-12-22] MEDS ORDERED: ALL300 PO (18:41)
[2017-12-22 19:01] LABS: BASO % 0.1 %; BASO ABS # 0.01 K/uL (0-0.2); EOS % 0.7 %; EOS ABS # 0.06 K/uL (0-0.5); HEMATOCRIT 37.4 % (37-47); HEMOGLOBIN 11.5 g/dL (12.0-16.0); IG# 0.02 K/uL (0.00-0.02); LYMPH % 17.4 %; LYMPH ABS # 1.49 K/uL (1.2-3.4); MEAN CELL VOLUME 93.7 fL (80-100); MEAN CORPUSCULAR HEMOGLOBIN 28.8 pg (25-34); MEAN CORPUSCULAR HGB CONC 30.7 g/dl (32-36); MEAN PLATELET VOLUME 9.7 fL (7.4-10.4); MONO % 6.4 %; MONO ABS # 0.55 K/uL (0.11-0.59); NEUT % 75.2 %; NEUT ABS # 6.45 K/uL (1.4-6.5); PLATELET COUNT 149 K/uL (130-400); RED CELL DISTRIBUTION WIDTH CV 17.4 % (11.5-14.5); RED CELL DISTRIBUTION WIDTH SD 59.2 fL (36.4-46.3); WHITE BLOOD COUNT 8.58 K/uL (4.8-10.8)
--- NOTE | 2017-12-22 19:01 | DIAGNOSTIC IMAGING REPORT ---
CHEST ONE VIEW PORTABLE HISTORY: 67 years-old Female CHEST PAIN acute atypical chest pain COMPARISON: Portable chest radiograph 04/27/2017 TECHNIQUE: Portable AP view of the chest FINDINGS: Cardiac silhouette is moderately enlarged. Pulmonary vascular congestion without overt pulmonary edema. No pneumothorax, large pleural effusion or overt pulmonary edema. Bones of the chest appear grossly intact. Multilevel endplate spurring of the spine. Degenerative changes are seen within the shoulders. Probable left shoulder calcific tendinosis of the rotator cuff. Atherosclerosis of the aorta. IMPRESSION: 1. Cardiomegaly and pulmonary vascular congestion without overt pulmonary edema. 2. No lobar airspace consolidation to suggest pneumonia. The above report was generated using voice recognition software. It may contain grammatical, syntax or spelling errors. Electronically signed by: Chris Vu M.D. 12/22/2017 7:00 PM Dictated Date/Time: 12/22/2017 6:59 PM
[2017-12-22] MEDS ORDERED: DEXTROSE 50% 50 ML SYR IV STA (19:05)
[2017-12-22 19:09] LABS: ISTAT CREATININE 0.6 mg/dl (0.6-1.3); ISTAT IONIZED CALCIUM 1.2 mmol/l (1.12-1.32); ISTAT POTASSIUM 3.5 mEq/L (3.3-5.0)
[2017-12-22 19:11] LABS: INR 3.1 (0.9-1.1)
[2017-12-22] MEDS ORDERED: POTASSIUM CHLORIDE 20 MEQ/15 ML UDC PO STA (19:14)
[2017-12-22 19:21] LABS: ALBUMIN 3.1 gm/dl (3.4-5.0); CALCIUM 9.1 mg/dl (8.5-10.1); CREATININE 0.63 mg/dl (0.60-1.20); POTASSIUM 3.8 mmol/L (3.5-5.1)
[2017-12-22 19:26] LABS: CKMB 0.7 ng/ml (0.5-3.6); TOTAL PROTEIN 6.3 gm/dl (6.4-8.2)
[2017-12-22] MEDS ORDERED: OPTIRAY 320 IV PRN (20:00)
--- NOTE | 2017-12-22 20:06 | DIAGNOSTIC IMAGING REPORT ---
HEAD WITHOUT CONTRAST (CT) CLINICAL HISTORY: 67 years-old Female with Pt in accident on coumadin. Acute head injury TECHNIQUE: Multiple axial CT images of the head were obtained without contrast. A dose lowering technique was utilized adhering to the principles of ALARA. COMPARISON: CT head 06/09/2014. FINDINGS: No acute intracranial hemorrhage, midline shift, intracranial mass, hydrocephalus, territorial ischemia or abnormal extra-axial collection. 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 Mild bifrontal cerebral atrophy. Ill-defined areas of low-attenuation within the subcortical and periventricular white matter suggests chronic microvascular ischemic changes. The calvarium is intact. The paranasal sinuses, mastoid air cells, and middle ear cavities are clear. IMPRESSION: No acute intracranial abnormality. The above report was generated using voice recognition software. It may contain grammatical, syntax or spelling errors. Electronically signed by: Chris Vu M.D. 12/22/2017 8:04 PM Dictated Date/Time: 12/22/2017 8:01 PM
--- NOTE | 2017-12-22 20:16 | DIAGNOSTIC IMAGING REPORT ---
CHEST CT WITH CONTRAST CT DOSE: 1621.12 mGy.cm HISTORY: Acute chest injury status post trauma Pt in accident c/o chest pain on coumadin TECHNIQUE: Multiaxial CT images of the chest were performed following the intravenous administration of contrast. A dose lowering technique was utilized adhering to the principles of ALARA. COMPARISON: CTA of the chest 11/14/2007 FINDINGS: Multinodular thyroid with nodules in the right thyroid lobe measuring up to 10 mm. Enlarged prevascular and AP window lymph nodes are seen measuring up to 1.8 x 1.0 cm. Enlarged right paratracheal and right hilar lymph nodes are also seen measuring up to 1.2 cm. Mild enlargement of the heart with coronary arterial disease. No aortic aneurysm or dissection. Moderate to extensive atherosclerosis of the aorta. Aberrant right subclavian artery is noted within a retroesophageal location. Image great vessels appear to be patent. The main pulmonary artery is dilated, 3.3 cm suggesting pulmonary arterial hypertension. No focal filling defects within the pulmonary artery identified. No pneumothorax or pleural effusion. Mild pulmonary vascular congestion is noted with patchy bilateral groundglass opacities suggest areas of atelectasis. Calcified granuloma of the left upper lobe. There is a 3 mm noncalcified solid nodule of the left upper lobe seen on image 35 series 6 which appears unchanged compatible with benign etiology. The central airways are patent. Suggested fatty infiltration of the liver. Moderate body wall edema. No acute abnormality identified within the imaged upper abdomen. Bones appear intact without acute fracture identified. No sternal fracture. Multilevel degenerative changes of the spine. IMPRESSION: 1. No acute posttraumatic abnormality of the chest identified. 2. No acute fracture or pneumothorax. 3. Cardiomegaly with pulmonary vascular congestion. 4. Dilation of the main pulmonary artery suggests pulmonary arterial hypertension. 5. Aberrant right subclavian artery. 6. Mild mediastinal and right hilar adenopathy is nonspecific and may be reactive. Electronically signed by: Chris Vu M.D. 12/22/2017 8:15 PM Dictated Date/Time: 12/22/2017 8:06 PM
--- NOTE | 2017-12-22 20:25 | DIAGNOSTIC IMAGING REPORT ---
THORACIC SPINE WITHOUT HISTORY: 67 years-old Female Pt c/o accident, chest pain acute chest trauma with chest pain COMPARISON: CT chest of same day TECHNIQUE: Multiple axial CT images of the thoracic spine were obtained without contrast. A dose lowering technique was used consistent with the principals of ALARA. FINDINGS: No acute fracture or subluxation of the thoracic spine. The imaged ribs appear to be intact. Multilevel endplate spurring with facet arthropathy. Posterior elements appear intact. No definite high-grade central canal or foraminal narrowing of the thoracic spine identified, however the structures are better evaluated by MRI. Mild body wall edema. Dilation of the main pulmonary artery. Multinodular goiter. Cardiomegaly. Atherosclerosis of the aorta. IMPRESSION: 1. No acute fracture or subluxation of the thoracic spine. 2. Multilevel endplate spurring and facet arthropathy. The above report was generated using voice recognition software. It may contain grammatical, syntax or spelling errors. Electronically signed by: Chris Vu M.D. 12/22/2017 8:24 PM Dictated Date/Time: 12/22/2017 8:19 PM
[2017-12-22] MEDS ORDERED: NITROGLYCERIN 0.4 MG SL PER TAB CHARGE SL PRN (22:00)
[2017-12-22] MEDS ORDERED: NITROGLYCERIN 0.4 MG SL PER TAB CHARGE UT SCH (22:00)
[2017-12-22] MEDS ORDERED: ALUMINUM/MAGNESIUM/SIMETH (MAALOX MAX) 30 ML UDC PO PRN (22:00)
[2017-12-22] MEDS ORDERED: ONDANSETRON INJ 2 MG/ML 2 ML VIAL IV PRN (22:00)
[2017-12-22] MEDS ORDERED: ACETAMINOPHEN 325 MG TAB PO PRN (22:00)
[2017-12-22] MEDS ORDERED: POLYETHYLENE (MIRALAX) 17 GM PACK PO PRN (22:00)
[2017-12-22] MEDS ORDERED: MAGNESIUM HYDROXIDE SUSP 30 ML UDC PO PRN (22:00)
[2017-12-22] MEDS ORDERED: LEVALBUTEROL/IPRATROPIUM NEB INH PRN (22:15)
[2017-12-22] MEDS ORDERED: INSDGIPEN SQ (22:26)
[2017-12-22] MEDS ORDERED: GLC/500 PO ×2 (22:26→23:37)
[2017-12-22] MEDS ORDERED: ASPEC81 PO (22:26)
[2017-12-22] MEDS ORDERED: WARF-285 PO (22:26)
[2017-12-22] MEDS ORDERED: REPA1TAB10 PO (22:26)
[2017-12-22] MEDS ORDERED: CHOL1TAB42 PO (22:26)
[2017-12-22] MEDS ORDERED: PRED10TA PO (22:26)
[2017-12-22] MEDS ORDERED: MAGN400T6 PO (22:34)
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
[2017-12-22] MEDS ORDERED: IPRATROPIUM BROMIDE NEB SOLN 0.02% 2.5 ML VIAL INH PRN (23:00)
[2017-12-22] MEDS ORDERED: LEVALBUTEROL 1.25MG/0.5ML NEB INH PRN (23:00)
[2017-12-22] MEDS ORDERED: GLUCOSE 40% GEL 15 GM TUBE PO PRN (23:15)
[2017-12-22] MEDS ORDERED: DEXTROSE 50% 50 ML SYR IV PRN (23:15)
[2017-12-22] MEDS ORDERED: GLUCOSE 10 TABS/TUBE PO PRN (23:15)
[2017-12-22] MEDS ORDERED: GLUCAGON FOR INJ 1 MG VIAL SQ PRN (23:15)
[2017-12-22] MEDS ORDERED: CHOL1000 PO (23:17)
[2017-12-22 23:30] VITALS: O2SAT 96; BMI 44.0
[2017-12-22] MEDS ORDERED: LISI20TA3 PO (23:34)
[2017-12-22] MEDS ORDERED: GABA-112 PO (23:35)
[2017-12-22] MEDS ORDERED: FURO80TA63 PO (23:38)
[2017-12-22] MEDS ORDERED: METO-551 PO (23:39)
[2017-12-23] VITALS: BP 164/68; PULSE 81; TEMP 36.6; O2SAT 96
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
[2017-12-23 04:22] LABS: HEMATOCRIT 36.4 % (37-47); HEMOGLOBIN 11.3 g/dL (12.0-16.0); MEAN CELL VOLUME 93.8 fL (80-100); MEAN CORPUSCULAR HEMOGLOBIN 29.1 pg (25-34); PLATELET COUNT 142 K/uL (130-400); RED CELL DISTRIBUTION WIDTH CV 17.3 % (11.5-14.5); RED CELL DISTRIBUTION WIDTH SD 58.6 fL (36.4-46.3); WHITE BLOOD COUNT 6.96 K/uL (4.8-10.8)
[2017-12-23 04:44] LABS: CALCIUM 9.3 mg/dl (8.5-10.1); CREATININE 0.65 mg/dl (0.60-1.20)
[2017-12-23 04:50] LABS: PHOSPHORUS 4.1 mg/dl (2.5-4.9)
[2017-12-23 06:16] VITALS: BP 159/83; PULSE 80; TEMP 36.5; O2SAT 96
[2017-12-23 07:44] VITALS: BP 155/80; PULSE 78; TEMP 36.4; O2SAT 97
--- NOTE | 2017-12-23 08:30 | DIAGNOSTIC IMAGING REPORT ---
CHEST ONE VIEW PORTABLE CLINICAL HISTORY: Congestive heart failure. Chest discomfort. COMPARISON STUDY: Chest radiograph and chest CT T December 22, 2017. FINDINGS: No pneumothorax or pleural effusion is noted. There is no consolidation. There is pulmonary vascular congestion without overt pulmonary edema. Cardiomegaly is unchanged. IMPRESSION: Pulmonary vascular congestion without overt pulmonary edema. Electronically signed by: Ladarius Nguyen M.D. 12/23/2017 8:28 AM Dictated Date/Time: 12/23/2017 8:27 AM
[2017-12-23] MEDS ORDERED: PERFLUTREN LIPID MICROSPHERE (DEFINITY) IV ONE (08:54)
[2017-12-23] MEDS ORDERED: METOPROLOL TARTRATE 50 MG TAB PO SCH (09:00)
[2017-12-23] MEDS ORDERED: MAGNESIUM OXIDE 400 MG TAB PO SCH ×2 (09:00→21:00)
[2017-12-23] MEDS ORDERED: ASPIRIN 81 MG ECTAB PO SCH (09:00)
[2017-12-23] MEDS ORDERED: LISINOPRIL 20 MG TAB PO SCH (09:00)
[2017-12-23] MEDS ORDERED: FUROSEMIDE INJ 40 MG in SYRINGE 0 ML IV SCH (09:00)
[2017-12-23] MEDS ORDERED: ALLOPURINOL 300 MG TAB PO SCH (09:00)
[2017-12-23] MEDS ORDERED: INSULIN GLARGINE SOLOSTAR 100 UNITS/ML 3 ML PEN SQ SCH (09:00)
[2017-12-23 09:56] VITALS: BP 158/82; PULSE 101
--- NOTE | 2017-12-23 10:21 | ECHOCARDIOGRAM REPORT ---
*NOTICE TO RECEIVING LIBERTARIAN AGENCY This information is strictly Confidential and protected under [place] law. [place] law prohibits you from making any further disclosure of this information unless further disclosure is expressly permitted by the written consent of the person to whom it pertains or is authorized by law. A general authorization for the release of medical or other information is not sufficient for this purpose. Hospital accepts no responsibility if the information is made available to any other person, INCLUDING THE PATIENT. Interpretation Summary * Name: ABISAI THURMAN I Study Date: 12/23/2017 06:38 AM BP: 164/68 mmHg * Patient Location: [facility]\S\[id number]\1 HR: 81 * : 1950 (M/d/yyyy) Gender: Female Height: 64 in * Age: 67 yrs Ethnicity: [place] Weight: 256 lb * Ordering Physician: Jocelin Feldman * Referring Physician: Self, Referred * Performed By: Omaira Montes De Oca RDCS * * Reason For Study: CHF * BSA: 2.2 m2 * -- Conclusions -- * No significant change compared to previous study of 04/28/17. * Normal LV chamber size with mild concentric LVH. * Normal LV systolic function, EF 60-65%. * No segmental left ventricular wall motion abnormalities are noted. * No significant valvular pathology. * Moderate biatrial enlargement. Procedure Details * A complete two-dimensional transthoracic echocardiogram was performed (2D, M-mode, Doppler and color flow Doppler). * A contrast injection of Definity was performed to improve assessment of LV function. * Contrast was injected into an intravenous site in the left arm. * One vial of Definity ultrasound contrast was diluted in normal saline to a total volume of 10 ml. A total of '2' ml of solution was administered during imaging. * Lot # [id number] of Definity utilized for procedure. * Expiration date DEC 16. * The attending nurse who injected the contrast agent was Edda Castro RN. Left Ventricle * The left ventricle is normal in size. * There is mild concentric left ventricular hypertrophy. * Ejection Fraction = 60-65%. * Left ventricular systolic function is normal. * No segmental left ventricular wall motion abnormalities are noted. * The left ventricular wall motion is normal. Right Ventricle * The right ventricular cavity size is normal (basal dimension <4.2 cm in right ventricular apical 4-chamber view). * The right ventricular systolic function is normal. Atria * The left atrium is moderately dilated. * The right atrium is moderately dilated. * No ASD detected; PFO is not assessed. Mitral Valve * The mitral valve is normal in structure and function. Tricuspid Valve * The tricuspid valve is normal in structure and function. Aortic Valve * The aortic valve is not well visualized. * No hemodynamically significant valvular aortic stenosis. * There is no significant aortic regurgitation. Pulmonic Valve * The pulmonary valve is not well seen, but the Doppler examination is normal without significant regurgitation or stenosis. Great Vessels * The aortic root and proximal ascending aorta are normal sized. Pericardium/Pleural * There is no pericardial effusion. MMode 2D Measurements and Calculations IVSd 1.2 cm LVIDd 4.4 cm LVIDs 2.9 cm LVPWd 1.4 cm IVS/LVPW 0.89 FS 33.7 % EDV(Teich) 85.4 ml ESV(Teich) 31.8 ml EF(Teich) 62.8 % EDV(cubed) 82.3 ml ESV(cubed) 24.0 ml EF(cubed) 70.9 % LV mass(C)d 210.7 grams LV mass(C)dI 97.0 grams/m\S\2 SV(Teich) 53.6 ml SI(Teich) 24.7 ml/m\S\2 SV(cubed) 58.4 ml SI(cubed) 26.9 ml/m\S\2 Ao root diam 2.4 cm Ao root area 4.4 cm\S\2 ACS 1.5 cm LA dimension 4.1 cm asc Aorta Diam 2.6 cm LA/Ao 1.7 LVAd ap4 21.7 cm\S\2 LVLd ap4 7.6 cm EDV(MOD-sp4) 50.0 ml EDV(sp4-el) 52.5 ml LVAs ap4 11.8 cm\S\2 LVLs ap4 6.2 cm ESV(MOD-sp4) 18.9 ml ESV(sp4-el) 19.0 ml EF(MOD-sp4) 62.2 % EF(sp4-el) 63.8 % LVAd ap2 25.2 cm\S\2 LVLd ap2 7.2 cm EDV(MOD-sp2) 72.9 ml EDV(sp2-el) 74.7 ml LVAs ap2 14.8 cm\S\2 LVLs ap2 7.0 cm ESV(MOD-sp2) 25.7 ml ESV(sp2-el) 26.5 ml EF(MOD-sp2) 64.7 % EF(sp2-el) 64.5 % LVLd %diff -5.66 % EDV(MOD-bp) 60.3 ml LVLs %diff 11.3 % ESV(MOD-bp) 23.4 ml EF(MOD-bp) 61.1 % SV(MOD-sp4) 31.1 ml SI(MOD-sp4) 14.3 ml/m\S\2 SV(MOD-sp2) 47.1 ml SI(MOD-sp2) 21.7 ml/m\S\2 SV(MOD-bp) 36.8 ml SI(MOD-bp) 16.9 ml/m\S\2 SV(sp4-el) 33.5 ml SI(sp4-el) 15.4 ml/m\S\2 SV(sp2-el) 48.2 ml SI(sp2-el) 22.2 ml/m\S\2 Doppler Measurements and Calculations MV E max sophie 140.6 cm/sec MV dec time 0.18 sec Ao V2 max 171.9 cm/sec Ao max PG 11.8 mmHg Ao max PG (full) 9.5 mmHg LV V1 max PG 2.3 mmHg LV V1 max 75.5 cm/sec PA V2 max 95.0 cm/sec PA max PG 3.6 mmHg PA acc slope 563.2 cm/sec\S\2 PA acc time 0.12 sec TR max sophie 292.0 cm/sec PA pr(Accel) 25.1 mmHg
[2017-12-23] MEDS ORDERED: GLUCAGON FOR INJ 1 MG VIAL SQ PRN (10:30)
[2017-12-23] MEDS ORDERED: INSULIN GLARGINE SOLOSTAR 100 UNITS/ML 3 ML PEN SC SCH (10:30)
[2017-12-23] MEDS ORDERED: GLUCOSE 40% GEL 15 GM TUBE PO PRN (10:30)
[2017-12-23] MEDS ORDERED: DEXTROSE 50% 50 ML SYR IV PRN (10:30)
[2017-12-23] MEDS ORDERED: GLUCOSE 10 TABS/TUBE PO PRN (10:30)
[2017-12-23] MEDS: MAGNESIUM SULFATE 1GM / D5W 1 GM in PREMIXED IN D5W 100 ML IV SCH ×2 (10:45→11:43)
[2017-12-23] MEDS ORDERED: INSULIN HUMAN REGULAR SC SCH (11:00)
--- NOTE | 2017-12-23 11:14 | CARDIOLOGY CONSULTATION ---
DATE OF CONSULTATION: 12/23/2017 INPATIENT CONSULTATION CONSULTATION REQUESTED BY: Ra Rdz PA-C. REASON FOR CONSULTATION: Chest pain and lightheadedness. HISTORY OF PRESENT ILLNESS: Mrs. Kumar is a very pleasant 67-year-old woman who normally follows with myself as an outpatient for her history of persistent atrial fibrillation. She presented to [facility] Emergency Department on the advice of her granddaughter on 12/22/2017 with a complaint of episodic chest pain and abnormal blood sugars. The patient states that for the last several weeks she has been noticing some very fleeting chest discomfort. She describes it as a right-sided sensation, sharp and stabbing in nature as though as electric shock, this is the same exact pain that she has had before worked up and was found to be nonischemic. Also of more concern to her, she has been having episodes of lightheadedness. She has noticed that her blood sugars have been significantly uncontrolled at home and that she has been having episodes of hypoglycemia, which seemed to be worsening. She states that she told her granddaughter about these episodes and her granddaughter insisted her she should come into the Emergency Department. In the ER, she was evaluated and admitted to telemetry. Currently, again she states that the right-sided chest pain is reproducible. She states that she has been compliant with her medications and oxygen at home and otherwise feeling well. PAST SURGICAL HISTORY: 1. Hysterectomy. 2. Knee surgery. 3. Colonoscopy. 4. Tonsillectomy. MEDICAL ILLNESSES: 1. Persistent atrial fibrillation, rate controlled on chronic Coumadin therapy. 2. Obesity. 3. Diabetes. 4. Severe chronic obstructive pulmonary disease. 5. Chronic respiratory failure on home O2. 6. Polymyalgia rheumatica. 7. History of right-sided heart failure. 8. Primary thrombocytopenia. 9. History of noncardiac chest pain. FAMILY HISTORY: Noncontributory. SOCIAL HISTORY: The patient is a long-term smoker and continues to smoke. Denies any alcohol or recreational drug use. REVIEW OF SYSTEMS: As per HPI, all other review of systems reviewed and negative at this time. ALLERGIES: 1. PENICILLIN. 2. ROFECOXIB. 3. SULINDAC. MEDICATIONS AN OUTPATIENT: 1. Digoxin 250 mcg daily. 2. Aspirin 81 mg daily. 3. Lasix 40 mg daily. 4. Zocor 80 mg daily. 5. Metoprolol tartrate 50 mg b.i.d. 6. Coumadin as directed by the Coumadin clinic. 7. Neurontin. 8. Glucophage. 9. Prandin. 10. Lantus as directed. 11. Insulin sliding scale. 12. Magnesium oxide 400 mg b.i.d. 13. Oxygen 2 liters nasal cannula continuously. PHYSICAL EXAMINATION: VITAL SIGNS: Temperature 36.4, pulse 78, respiratory rate 12, blood pressure 155/80. GENERAL: Awake, alert, oriented x3 in no acute distress. HEENT: Normocephalic, atraumatic. Pupils equal, round, and reactive to light and accommodation. Extraocular muscles intact. Anicteric sclerae. Moist mucous membranes. NECK: No JVD, no bruit. CARDIOVASCULAR: Irregularly irregular, unable to appreciate any murmurs, rubs or gallops. PULMONARY: Clear to auscultation bilaterally with poor air movement. ABDOMEN: Bowel sounds x4, soft. No rebound, guarding, tenderness. No organomegaly. EXTREMITIES: No clubbing or cyanosis. +1 bilateral lower extremity nonpitting edema, chronic venous stasis changes. SKIN: Warm and dry. MUSCULOSKELETAL: Direct palpation of the right fourth intercostal space midclavicular line was able to reproduce her chest pain. LABORATORY STUDIES OF SIGNIFICANCE: Sodium 141, potassium 4, BUN 13, creatinine 0.65, and magnesium of 1.6. Troponin negative x2. A 12-lead EKG performed in the Emergency Department independently reviewed at this time shows atrial fibrillation at 75 beats per minute, normal axis, normal intervals, ST-segment depressions in the anterior lateral leads, unchanged compared to previous study. IMPRESSION: 1. Reproducible chest pain. 2. Persistent atrial fibrillation, rate controlled on chronic Coumadin therapy with therapeutic INR. 3. Diabetes with symptomatic hypoglycemia. 4. Chronic respiratory failure on home O2. 5. History of right-sided heart failure. RECOMMENDATIONS: It is my pleasure to see Mrs. Kumar in consultation today. Given the fact that her chest pain is reproducible and her cardiac workup is unremarkable, no further cardiac testing or intervention is necessary at this time. Of more concern is the fact that her blood pressure is not controlled, she appears to be having lightheaded episodes of hypoglycemia, so I would recommend further evaluation and tailoring of her diabetic management. I will take the liberty of consulting diabetes education at this time. No other medication changes will be made at this time should she remain hypertensive. Can increase her lisinopril 40 mg daily, otherwise all other cardiac medications will be continued.
[2017-12-23 11:23] VITALS: BP 114/71; PULSE 67; TEMP 36.8; O2SAT 94
[2017-12-23 13:52] VITALS: Ht 162.6 cm; Wt 113.5 kg
[2017-12-23] MEDS ORDERED: INSDGIPEN SQ (14:13)
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
[2017-12-23 14:42] VITALS: BP 114/71; PULSE 67; TEMP 36.8; O2SAT 94
[2017-12-23] MEDS ORDERED: DIGOXIN 0.25 MG TAB PO SCH (16:00)
[2017-12-23] MEDS ORDERED: WARFARIN SOD 1 MG TAB PO SCH (16:00)
[2017-12-23] MEDS ORDERED: SIMVASTATIN 80 MG TAB PO SCH (21:00)
[2017-12-23] MEDS ORDERED: GABAPENTIN 300 MG CAP PO SCH (21:00)
== END 2017-12-23 16:14 | disposition home or self-care (01) | DRG 313 ==
LOC: EDBD 18:14 → C.EDB 18:15 → C.MED 21:43 → ENRESERV 22:03
PROVIDERS: ADMIT Hospitalist; ATTEND Hospitalist
DX: R07.2 Precordial pain (principal); I50.33 Acute on chronic diastolic (congestive) heart failure; J96.10 Chronic respiratory failure, unspecified whether with hypoxia or hypercapnia; Z68.41 Body mass index [BMI] 40.0-44.9, adult; J44.9 Chronic obstructive pulmonary disease, unspecified; I48.2 Chronic atrial fibrillation; E78.5 Hyperlipidemia, unspecified; I11.0 Hypertensive heart disease with heart failure; M35.3 Polymyalgia rheumatica; R29.6 Repeated falls; E11.649 Type 2 diabetes mellitus with hypoglycemia without coma; E66.3 Overweight; Z79.01 Long term (current) use of anticoagulants; Z79.52 Long term (current) use of systemic steroids; Z79.82 Long term (current) use of aspirin; Z79.84 Long term (current) use of oral hypoglycemic drugs; Z79.899 Other long term (current) drug therapy; Z88.0 Allergy status to penicillin; Z99.81 Dependence on supplemental oxygen; Z91.81 History of falling; F17.200 Nicotine dependence, unspecified, uncomplicated

== ENCOUNTER 2018-01-03 12:08 | Inpatient (IN) | payer OTHER ==
[~2018-01-03] VITALS: Ht 154.9 cm; Wt 112.9 kg
[~2018-01-03 12:08] MED LIST changes: +ALL300 PO; +ASPEC81 PO; +CHOL1000 PO; +DIGO0.2519 PO; +FURO80TA63 PO; +GABA-112 PO; +GLC/500 PO; +INSDGIPEN SQ; +LISI20TA3 PO; -LNX25 PO; +METO-551 PO; +PRED10TA PO; +REPA1TAB10 PO; +WARF-285 PO; -WARF3TAB PO
--- NOTE | 2018-01-03 12:49 | DIAGNOSTIC IMAGING REPORT ---
CHEST ONE VIEW PORTABLE CLINICAL HISTORY: SOB, CHF dyspnea COMPARISON STUDY: 12/23/2017 FINDINGS: Moderate stable cardiomegaly. Diaphragms are smooth. Lungs are clear. The costophrenic angles are sharp. IMPRESSION: Moderate stable cardiomegaly. Otherwise negative study. The above report was generated using voice recognition software. It may contain grammatical, syntax or spelling errors. Electronically signed by: Vinny Fernando M.D. 01/03/2018 12:48 PM Dictated Date/Time: 01/03/2018 12:47 PM
[2018-01-03] MEDS ORDERED: CYAN100020 PO (12:51)
[2018-01-03] MEDS ORDERED: FURO40TA3 PO (12:51)
[2018-01-03] MEDS ORDERED: TRAM-10 PO (12:51)
[2018-01-03 13:13] LABS: BASO % 0.2 %; BASO ABS # 0.02 K/uL (0-0.2); EOS % 0.8 %; EOS ABS # 0.07 K/uL (0-0.5); HEMATOCRIT 40.4 % (37-47); HEMOGLOBIN 12.1 g/dL (12.0-16.0); IG# 0.03 K/uL (0.00-0.02); LYMPH % 13.3 %; LYMPH ABS # 1.15 K/uL (1.2-3.4); MEAN CELL VOLUME 96.4 fL (80-100); MEAN CORPUSCULAR HEMOGLOBIN 28.9 pg (25-34); MEAN PLATELET VOLUME 10.3 fL (7.4-10.4); MONO % 4.3 %; MONO ABS # 0.37 K/uL (0.11-0.59); NEUT % 81.1 %; NEUT ABS # 6.98 K/uL (1.4-6.5); PLATELET COUNT 172 K/uL (130-400); RED CELL DISTRIBUTION WIDTH CV 17.7 % (11.5-14.5); RED CELL DISTRIBUTION WIDTH SD 61.9 fL (36.4-46.3); WHITE BLOOD COUNT 8.62 K/uL (4.8-10.8)
--- NOTE | 2018-01-03 13:16 | EMERGENCY ROOM VISIT NOTE ---
History Report prepared by Thais: Dodie Gloria Under the Supervision of: Dr. Rohini Novak M.D. First contact with patient: 12:09 Stated Complaint: Cardiac eval History of Present Illness The patient is a 67 year old female who presents to the Emergency Room for a cardiac assessment. The patient was sent to the ED by Dr. Jackson of cardiology. The patient was in his office today. He did an echo that showed no right ventricular motion. He was concerned for PE and sent the patient to the ED for further evaluation. The patient states that she "just doesn't feel good. " She feels tired. She reports that her legs are more swollen than usual and her left leg has some redness which is new. Pt is on 2L of NC/O2 at all times. Source of History: patient, treating provider Onset: SHERIFF DETECTIVE Position: chest Timing: constant Associated Symptoms: + fatigue Note: +leg swelling and redness Review of Systems See HPI for pertinent positives & negatives. A total of 10 systems reviewed and were otherwise negative. Past Medical & Surgical Medical Problems: (1) Anemia (2) CHF (congestive heart failure) (3) COPD (chronic obstructive pulmonary disease) (4) Diabetes mellitus, type II (5) Dyslipidemia (6) HTN (hypertension) (7) Hypocalcemia (8) Hypomagnesemia (9) Lumbar radiculopathy (10) Polymyalgia rheumatica Surgical Problems: (1) History of hysterectomy (2) History of total knee replacement Family History Colon cancer Coronary artery disease FATHER ( OF [place] AT AGE 71 ) BROTHER SISTER Diabetes mellitus MOTHER SISTER Social History Smoking Status: Never Smoker Drug Use: none Marital Status: Housing Status: lives alone Occupation Status: retired Current/Historical Medications Scheduled Allopurinol (Allopurinol), 300 MG PO DAILY Aspirin (Aspirin EC Low Dose), 81 MG PO DAILY Cholecalciferol (Vitamin D3), 2,000 UNITS PO DAILY Cyanocobalamin (Vitamin B12), 1,000 MCG PO DAILY Digoxin (Digox), 250 MCG PO DAILY Furosemide (Lasix), 40 MG PO BID Gabapentin (Neurontin), 300 MG PO HS Insulin Glargine (Lantus Solostar), 30 UNITS SQ QAM Lisinopril (Prinivil), 20 MG PO QAM Magnesium Oxide (Mag-Ox), 400 MG PO BID Metformin Hcl (Glucophage), 1,000 MG PO BID Metoprolol Tartrate (Lopressor), 50 MG PO BID Nitroglycerin (Nitrostat), 0.4 MG UT PRN Prednisone (Prednisone), 10 MG PO UD Repaglinide (Repaglinide), 4 MG PO AC Simvastatin (Zocor), 80 MG PO HS Warfarin Sodium (Warfarin Sodium), 4.5 MG PO UD Scheduled PRN Tramadol (Ultram), 50 MG PO Q6 PRN for Pain Allergies Coded Allergies: Penicillins (Verified Allergy, Mild, 01/03/18) Rofecoxib (Verified Allergy, Unknown, 01/03/18) Sulindac (Verified Allergy, Unknown, 01/03/18) Physical Exam Vital Signs Date Time Temp Pulse Resp B/P (MAP) Pulse Ox O2 Delivery O2 Flow Rate FiO2 01/03/18 15:38 82 18 163/82 92 Nasal Cannula 2.0 01/03/18 14:47 93 Nasal Cannula 2.0 01/03/18 13:56 68 24 148/93 93 Nasal Cannula 2.0 01/03/18 12:42 66 24 158/79 93 Nasal Cannula 2.0 01/03/18 12:41 72 01/03/18 12:27 36.6 77 28 177/105 91 Nasal Cannula 2.0 01/03/18 12:23 90 Nasal Cannula 2.0 01/03/18 12:15 91 Nasal Cannula 2.0 Physical Exam Vital signs reviewed. General: Ill-appearing 67 year old female, in no significant distress. HEENT: No scleral icterus, PERRLA, neck supple. Atraumatic. Cardiovascular: Regular rate and rhythm, no extra sounds. Pulmonary: Clear to auscultation bilaterally, increased work of breathing. Abdomen: Soft, nontender, nondistended, positive bowel sounds. Musculoskeletal: Atraumatic, bilateral lower extremity edema with mild superimposed erythema. Neurologic: Patient awake alert and oriented x 3, full strength in all 4 extremities. Cranial nerves 2 through 12 grossly intact. Skin: Warm, dry, significant yeast dermatitis to inguinal folds, suprapubic pannus. Some mild urinary incontinence noted. Medical Decision & Procedures ER Provider Diagnostic Interpretation: Radiology results as stated below per my review and radiologist interpretation: CHEST ONE VIEW PORTABLE CLINICAL HISTORY: SOB, CHF dyspnea COMPARISON STUDY: 12/23/2017 FINDINGS: Moderate stable cardiomegaly. Diaphragms are smooth. Lungs are clear. The costophrenic angles are sharp. IMPRESSION: Moderate stable cardiomegaly. Otherwise negative study. The above report was generated using voice recognition software. It may contain grammatical, syntax or spelling errors. Electronically signed by: Vinny Fernando M.D. 01/03/2018 12:48 PM Dictated Date/Time: 01/03/2018 12:[address] ANGIOGRAM OF THE CHEST CLINICAL HISTORY: Shortness of breath. Elevated d-dimer. COMPARISON STUDY: Chest CT dated 12/22/2017 TECHNIQUE: Following the IV administration of 93 mL of Optiray-320, CT angiogram of the thorax was performed from the thoracic inlet to the lung bases utilizing the pulmonary embolus protocol. Images are reviewed in the axial, sagittal, and coronal planes. IV contrast was administered without complication. MIP imaging was performed. A dose lowering technique was utilized adhering to the principles of ALARA. CT DOSE: 722.28 mGy.cm FINDINGS: The heart is enlarged. There is reflux of contrast into the hepatic veins suggesting elevated right heart pressures. There are mildly enlarged right paratracheal, prevascular, and subcarinal lymph nodes. This finding remains unchanged the prior study. There was no evidence of thoracic aortic dilatation. There is apparent right subclavian artery. There were no pulmonary artery filling defects to indicate acute pulmonary embolism. There is a trace right pleural effusion There is respiratory motion artifact. There are right basilar atelectatic changes. There is subtle groundglass attenuation the lungs with a subtle mosaic pattern. This finding remains unchanged. There is no lobar consolidation. IMPRESSION: 1. No evidence of focal pulmonary consolidation 2. No CT evidence of acute pulmonary embolism 3. Cardiomegaly with evidence of elevated right heart pressures 4. Aberrant right subclavian artery 5. Mild mediastinal adenopathy unchanged from the prior study Electronically signed by: Christopher Delacruz M.D. 01/03/2018 2:30 PM Dictated Date/Time: 01/03/2018 2:25 PM Laboratory Results Test 01/03/18 12:09 01/03/18 12:51 01/03/18 12:55 01/03/18 14:32 Creatine Kinase MB Ratio (0-3.0) Total Bilirubin 0.5 mg/dl (0.2-1) Alanine Aminotransferase (ALT/SGPT) 12 U/L (12-78) Alkaline Phosphatase 59 U/L (45-117) Creatine Kinase MB < 0.5 ng/ml (0.5-3.6) Pro-B-Type Natriuretic Peptide 4104 pg/ml (0-900) Total Protein 6.8 gm/dl (6.4-8.2) Albumin 3.2 gm/dl (3.4-5.0) Bedside D-Dimer > 450 ng/mlFEU (0-450) Activated Partial Thromboplast Time 26.7 SECONDS (21.0-31.0) Partial Thromboplastin Ratio 1.0 Magnesium Level 2.0 mg/dl (1.8-2.4) Direct Bilirubin 0.2 mg/dl (0-0.2) Aspartate Amino Transf (AST/SGOT) 7 U/L (15-37) Total Creatine Kinase 25 U/L (26-192) Laboratory results per my review. Medications Administered Medications (Trade) Dose Ordered Sig/Amara Route Start Time Stop Time Status Last Admin Dose Admin Furosemide (Lasix Inj) 40 mg NOW STAT IV 01/03/18 14:38 01/03/18 14:39 DC 01/03/18 14:52 40 MG ECG Indication: other Rate (beats per minute): 69 Rhythm: atrial fibrillation Findings: nonspecific-ST abn, no acute ischemic change, other (low voltage QRS) ED Course 1215: Past medical records reviewed. The patient was evaluated in room A9B. A complete history and physical examination was performed. 1438: Lasix 40 mg IV 1442: I reassessed the patient at this time. She is feeling better and resting more comfortably. I discussed the results and treatment plan with the patient. I answered all pertaining questions that she had. She expressed understanding and verbalized agreement. 1509: I spoke with Dr. Feldman. We discussed the patient's case. The patient will be evaluated by the [facility] for further management. Medical Decision Differential diagnosis: Etiologies such as infections, reactive airway disease, pneumonia, pneumothorax , COPD, CHF, cardiac ischemia, pulmonary embolism, musculoskeletal, gastrointestinal, as well as others were entertained. This pt was evaluated and appeared to be SOB on 2 L n/c (home O2). I had discussed case with Dr Manuel BLACK, he was concerned with abnl function of RV on echo with c/o SOB. He suggested PE evaluation. IV access was obtained and lab work was drawn. Pt was placed on the material man. CXR reveals a moderate cardiomegaly, no acute changes. EKG reveals a rate controlled atrial fibrillation, no acute ischemia. Lab work reveals normal cardiac enzymes, creatinine is 0.83. Pt was sent for CTA which is negative for PE. Given h/o CHF, now SOB on home O2, pt will be evaluated by the hospitalist service for diuresis per Dr Jackson's recommendations. She is in agreement with this plan. Medication Reconcilliation Current Medication List: was personally reviewed by me Blood Pressure Screening Patient's blood pressure: Elevated blood pressure Blood pressure disposition: Referred to PCP Consults Time Called: [phone] Consulting Physician: Dr. Feldman Returned Call: [phone] Feldman. We discussed the patient's case. The patient will be evaluated by the [facility] for further management. Impression Primary Impression: CHF (congestive heart failure) Scribe Attestation The scribe's documentation has been prepared under my direction and personally reviewed by me in its entirety. I confirm that the note above accurately reflects all work, treatment, procedures, and medical decision making performed by me. Departure Information Dispostion Being Evaluated By Hospitalist Referrals Kevin De Oliveira M.D. (MEDICAL) (PCP)
[2018-01-03] MEDS ORDERED: OPTIRAY 320 IV PRN (13:45)
[2018-01-03 13:57] LABS: ALBUMIN 3.2 gm/dl (3.4-5.0); ALKALINE PHOSPHATASE 59 U/L (45-117); ALT/SGPT 12 U/L (12-78); BLOOD UREA NITROGEN 22 mg/dl (7-18); CALCIUM 9.1 mg/dl (8.5-10.1); CARBON DIOXIDE 32 mmol/L (21-32); CKMB < 0.5 ng/ml (0.5-3.6); CREATININE 0.83 mg/dl (0.60-1.20); GLUCOSE 127 mg/dl (70-99); SODIUM 142 mmol/L (136-145); TOTAL PROTEIN 6.8 gm/dl (6.4-8.2)
--- NOTE | 2018-01-03 14:32 | DIAGNOSTIC IMAGING REPORT ---
CT ANGIOGRAM OF THE CHEST CLINICAL HISTORY: Shortness of breath. Elevated d-dimer. COMPARISON STUDY: Chest CT dated 12/22/2017 TECHNIQUE: Following the IV administration of 93 mL of Optiray-320, CT angiogram of the thorax was performed from the thoracic inlet to the lung bases utilizing the pulmonary embolus protocol. Images are reviewed in the axial, sagittal, and coronal planes. IV contrast was administered without complication. MIP imaging was performed. A dose lowering technique was utilized adhering to the principles of ALARA. CT DOSE: 722.28 mGy.cm FINDINGS: The heart is enlarged. There is reflux of contrast into the hepatic veins suggesting elevated right heart pressures. There are mildly enlarged right paratracheal, prevascular, and subcarinal lymph nodes. This finding remains unchanged the prior study. There was no evidence of thoracic aortic dilatation. There is apparent right subclavian artery. There were no pulmonary artery filling defects to indicate acute pulmonary embolism. There is a trace right pleural effusion There is respiratory motion artifact. There are right basilar atelectatic changes. There is subtle groundglass attenuation the lungs with a subtle mosaic pattern. This finding remains unchanged. There is no lobar consolidation. IMPRESSION: 1. No evidence of focal pulmonary consolidation 2. No CT evidence of acute pulmonary embolism 3. Cardiomegaly with evidence of elevated right heart pressures 4. Aberrant right subclavian artery 5. Mild mediastinal adenopathy unchanged from the prior study Electronically signed by: Christopher Delacruz M.D. 01/03/2018 2:30 PM Dictated Date/Time: 01/03/2018 2:25 PM
[2018-01-03] MEDS ORDERED: FUROSEMIDE 40 MG/4 ML VIAL IV STA (14:38)
[2018-01-03 14:47] VITALS: O2SAT 93; Ht 154.9 cm; Wt 112.9 kg
[2018-01-03 14:56] LABS: INR 1.3 (0.9-1.1); PTT PATIENT 26.7 SECONDS (21.0-31.0)
[2018-01-03 15:03] LABS: POTASSIUM 4.4 mmol/L (3.5-5.1)
[2018-01-03] MEDS ORDERED: NURSING VERBAL MED ORDER ONE (16:15)
[2018-01-03] MEDS ORDERED: WARFARIN SOD 3 MG TAB PO ONE (16:24)
--- NOTE | 2018-01-03 16:29 | History and Physical ---
History & Physical Date & Time of Service: Jan 03, 2018 at 16:28 Chief Complaint: Cardiac Eval Primary Care Physician: Kevin De Oliveira M.D. (MEDICAL) History of Present Illness Source: patient, family 67 year old female with history of CHF Diastolic Type, Chronic Hypoxic Respiratory Failure, COPD, DM, HTN, presenting with shortness of breath. Patient discharge from [facility] on 12/23/17 after being evaluated for chest pain. She had a follow up visit with Dr. Jackson today and reported increasing shortness of breath and leg swelling. Stress Echo was performed showing RV strain. She was sent over to the ER for evaluation and management. At the ER, patient was given Lasix 40mg IV. On my exam, patient was seen sitting up in bed, comfortable. She states that she feels somewhat better compared to admission. CT chest: IMPRESSION: 1. No evidence of focal pulmonary consolidation 2. No CT evidence of acute pulmonary embolism 3. Cardiomegaly with evidence of elevated right heart pressures 4. Aberrant right subclavian artery 5. Mild mediastinal adenopathy unchanged from the prior study Past Medical/Surgical History Medical Problems: (1) Anemia Status: Chronic (2) CHF (congestive heart failure) Status: Chronic (3) COPD (chronic obstructive pulmonary disease) Status: Chronic (4) Diabetes mellitus, type II Status: Chronic (5) Dyslipidemia Status: Chronic (6) HTN (hypertension) Status: Chronic (7) Hypocalcemia Status: Chronic (8) Hypomagnesemia Status: Chronic (9) Lumbar radiculopathy Status: Chronic (10) Polymyalgia rheumatica Status: Chronic Surgical Problems: (1) History of hysterectomy Status: Chronic (2) History of total knee replacement Status: Chronic Family History Colon cancer Coronary artery disease FATHER ( OF [place] AT AGE 71 ) BROTHER SISTER Diabetes mellitus MOTHER SISTER Social History Smoking Status: Current Every Day Smoker Drug Use: none Marital Status: Housing status: lives alone Occupational Status: retired Immunizations History of Influenza Vaccine: Yes Influenza Vaccine Date: Aug 13, 2013 History of Tetanus Vaccine?: Unknown Tetanus Immunization Date: Feb 06, 2009 History of Pneumococcal: Yes Pneumococcal Date: Dec 03, 2005 History of Hepatitis B Vaccine: No Hepatitis Immunization Date: Mar 11, 2001 Multi-Drug Resistant Organisms History of MDRO: No Allergies Coded Allergies: Penicillins (Verified Allergy, Mild, 01/03/18) Rofecoxib (Verified Allergy, Unknown, 01/03/18) Sulindac (Verified Allergy, Unknown, 01/03/18) Home Medications Scheduled Allopurinol (Allopurinol), 300 MG PO DAILY Aspirin (Aspirin EC Low Dose), 81 MG PO DAILY Cholecalciferol (Vitamin D3), 2,000 UNITS PO DAILY Cyanocobalamin (Vitamin B12), 1,000 MCG PO DAILY Digoxin (Digox), 250 MCG PO DAILY Furosemide (Lasix), 40 MG PO BID Gabapentin (Neurontin), 300 MG PO HS Insulin Glargine (Lantus Solostar), 30 UNITS SQ QAM Lisinopril (Prinivil), 20 MG PO QAM Magnesium Oxide (Mag-Ox), 400 MG PO BID Metformin Hcl (Glucophage), 1,000 MG PO BID Metoprolol Tartrate (Lopressor), 50 MG PO BID Nitroglycerin (Nitrostat), 0.4 MG UT PRN Prednisone (Prednisone), 10 MG PO UD Repaglinide (Repaglinide), 4 MG PO AC Simvastatin (Zocor), 80 MG PO HS Warfarin Sodium (Warfarin Sodium), 4.5 MG PO UD Scheduled PRN Tramadol (Ultram), 50 MG PO Q6 PRN for Pain Review of Systems Constitutional- no fever; no weight loss Eyes- no acute visual changes ENT- no sinus drainage; no pharyngitis Pulmonary-(+) as noted above Cardiac- no chest pain, no palpitations, no orthopnea, no dependent edema GI- no nausea, no vomiting, no diarrhea, no melena, no hematochezia - no dysuria, no hematuria Musculoskeletal- no arthralgias, no myalgias Derm- no rashes, no new skin lesions, no changing skin lesions Hematologic- no unusual bruising, no unusual bleeding Lymphatics- no adenopathy Endocrine- no polyuria or polydipsia; no heat or cold intolerance Neuro- no headaches, no focal neurologic symptoms Psych- no anxiety, no depression Physical Exam Vital Signs Date Time Temp Pulse Resp B/P (MAP) Pulse Ox O2 Delivery O2 Flow Rate FiO2 01/03/18 15:38 82 18 163/82 92 Nasal Cannula 2.0 01/03/18 14:47 93 Nasal Cannula 2.0 01/03/18 13:56 68 24 148/93 93 Nasal Cannula 2.0 01/03/18 12:42 66 24 158/79 93 Nasal Cannula 2.0 01/03/18 12:41 72 01/03/18 12:27 36.6 77 28 177/105 91 Nasal Cannula 2.0 01/03/18 12:23 90 Nasal Cannula 2.0 01/03/18 12:15 91 Nasal Cannula 2.0 General Appearance: WD/WN, no apparent distress Head: normocephalic, atraumatic Eyes: normal inspection, PERRL, EOMI, sclerae normal ENT: normal ENT inspection, hearing grossly normal, pharynx normal Neck: supple, no adenopathy, thyroid normal, no carotid bruits, trachea midline , + JVD (mild) Respiratory/Chest: chest non-tender, lungs clear, no respiratory distress, no accessory muscle use, + wheezing (very faint wheeze on the left) Cardiovascular: no murmur, + JVD (mild), + irregularly irregular Abdomen/GI: normal bowel sounds, non tender, soft, no organomegaly Back: normal inspection, no CVA tenderness Extremities/Musculoskelatal: + pertinent finding ((+) bilateral lower leg edema , with erythema, no tenderness) 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, no motor/sensory deficits, alert, normal mood/affect, normal reflexes, oriented x 3 Skin: normal color, warm/dry, no rash Lymphatic: no adenopathy Diagnostics Laboratory Results Results Past 24 Hours Test 01/03/18 12:09 01/03/18 12:51 01/03/18 12:55 01/03/18 14:32 Range/Units Creatine Kinase MB Ratio 0-3.0 White Blood Count 8.62 4.8-10.8 K/uL Red Blood Count 4.19 4.2-5.4 M/uL Hemoglobin 12.1 12.0-16.0 g/dL Hematocrit 40.4 37-47 % Mean Corpuscular Volume 96.4 80-100 fL Mean Corpuscular Hemoglobin 28.9 25-34 pg Mean Corpuscular Hemoglobin Concent 30.0 32-36 g/dl Platelet Count 172 130-400 K/uL Mean Platelet Volume 10.3 7.4-10.4 fL Neutrophils (%) (Auto) 81.1 % Lymphocytes (%) (Auto) 13.3 % Monocytes (%) (Auto) 4.3 % Eosinophils (%) (Auto) 0.8 % Basophils (%) (Auto) 0.2 % Neutrophils # (Auto) 6.98 1.4-6.5 K/uL Lymphocytes # (Auto) 1.15 1.2-3.4 K/uL Monocytes # (Auto) 0.37 0.11-0.59 K/uL Eosinophils # (Auto) 0.07 0-0.5 K/uL Basophils # (Auto) 0.02 0-0.2 K/uL RDW Standard Deviation 61.9 36.4-46.3 fL RDW Coefficient of Variation 17.7 11.5-14.5 % Immature Granulocyte % (Auto) 0.3 % Immature Granulocyte # (Auto) 0.03 0.00-0.02 K/uL Sodium Level 142 136-145 mmol/L Potassium Level 4.4 3.5-5.1 mmol/L Chloride Level 106 98-107 mmol/L Carbon Dioxide Level 32 21-32 mmol/L Anion Gap 4.0 3-11 mmol/L Blood Urea Nitrogen 22 7-18 mg/dl Creatinine 0.83 0.60-1.20 mg/dl Est Creatinine Clear Calc Drug Dose 78.3 ml/min Estimated GFR () 84.0 Estimated GFR (Non- 72.5 BUN/Creatinine Ratio 26.7 10-20 Random Glucose 127 70-99 mg/dl Calcium Level 9.1 8.5-10.1 mg/dl Magnesium Level 2.0 1.8-2.4 mg/dl Total Bilirubin 0.5 0.2-1 mg/dl Direct Bilirubin 0.2 0-0.2 mg/dl Aspartate Amino Transf (AST/SGOT) 7 15-37 U/L Alanine Aminotransferase (ALT/SGPT) 12 12-78 U/L Alkaline Phosphatase 59 45-117 U/L Total Creatine Kinase 25 26-192 U/L Creatine Kinase MB < 0.5 0.5-3.6 ng/ml Pro-B-Type Natriuretic Peptide 4104 0-900 pg/ml Total Protein 6.8 6.4-8.2 gm/dl Albumin 3.2 3.4-5.0 gm/dl Bedside D-Dimer > 450 0-450 ng/mlFEU Prothrombin Time 13.4 9.0-12.0 SECONDS Prothromb Time International Ratio 1.3 0.9-1.1 Activated Partial Thromboplast Time 26.7 21.0-31.0 SECONDS Partial Thromboplastin Ratio 1.[address] chest as per H&P EKG a fibb HR controlled Impression Assessment and Plan 67 year old female with history of CHF Diastolic Type, Chronic Hypoxic Respiratory Failure, COPD, DM, HTN, presenting with shortness of breath. RIGHT SIDED CHF - change Lasix to 40mg IV q12h fluid restriction - Cardiology consulted - continue Metoprolol CHRONIC HYPOXIC RESPIRATORY FAILURE - on 2 liter via NC - monitor A FIB - on Metoprolol and Coumadin DM 2 - Lantus 30 units in AM ISS hold oral medications HTN - on Metoprolol, Lisinopril PMR - on prednisone? DVT proph - on coumadin Disposition lives at home Advanced Directives Existing Living Will: Yes Existing Power of Ski Technician: Yes (FREDRICK PITTS ) VTE Prophylaxis VTE Risk Assessment Done? Y/N: Yes Risk Level: Moderate
[2018-01-03] MEDS ORDERED: ACETAMINOPHEN 325 MG TAB PO PRN (16:30)
[2018-01-03] MEDS ORDERED: TRAMADOL HCL 50 MG TAB PO PRN (16:30)
[2018-01-03] MEDS ORDERED: NITROGLYCERIN 0.4 MG SL PER TAB CHARGE SL PRN (16:30)
[2018-01-03] MEDS ORDERED: GLUCAGON FOR INJ 1 MG VIAL SQ PRN ×2 (16:45→18:45)
[2018-01-03] MEDS ORDERED: GLUCOSE 10 TABS/TUBE PO PRN ×2 (16:45→18:45)
[2018-01-03] MEDS ORDERED: DEXTROSE 50% 50 ML SYR IV PRN ×2 (16:45→18:45)
[2018-01-03] MEDS ORDERED: GLUCOSE 40% GEL 15 GM TUBE PO PRN ×2 (16:45→18:45)
[2018-01-03 18:30] VITALS: BP 144/84; PULSE 79; TEMP 36.6; O2SAT 95
[2018-01-03] MEDS ORDERED: WARFARIN TAB 4 MG, WARFARIN TAB 0.5 MG PO ONE ×2 (18:45)
[2018-01-03 20:00] VITALS: O2SAT 90
[2018-01-03] MEDS: FUROSEMIDE INJ 40 MG in SYRINGE 0 ML IV SCH (20:36)
[2018-01-03] MEDS: INSULIN ASPART 100 UNITS/ML 3 ML PEN SC SCH (21:00)
[2018-01-03] MEDS ORDERED: SIMVASTATIN 80 MG TAB PO SCH (21:00)
[2018-01-03 21:36] VITALS: BP 181/93; PULSE 82
[2018-01-03] MEDS: MAGNESIUM OXIDE 400 MG TAB PO SCH (21:38)
[2018-01-03] MEDS: GABAPENTIN 300 MG CAP PO SCH (21:38)
[2018-01-03] MEDS: METOPROLOL TARTRATE 50 MG TAB PO SCH (21:39)
[2018-01-03] MEDS: NYSTATIN POWDER 15GM BTL EXT PRN (22:11)
[2018-01-04] VITALS (12 sets, daily range): BP systolic 110–153; BP diastolic 55–87; PULSE 68–76; TEMP 36.2–37; O2SAT 90–97
[2018-01-04 06:12] LABS: BASO % 0.3 %; BASO ABS # 0.02 K/uL (0-0.2); EOS % 1.3 %; HEMATOCRIT 38.6 % (37-47); HEMOGLOBIN 11.7 g/dL (12.0-16.0); IG# 0.02 K/uL (0.00-0.02); LYMPH % 6.9 %; LYMPH ABS # 0.53 K/uL (1.2-3.4); MEAN CELL VOLUME 96.7 fL (80-100); MEAN CORPUSCULAR HEMOGLOBIN 29.3 pg (25-34); MEAN CORPUSCULAR HGB CONC 30.3 g/dl (32-36); MEAN PLATELET VOLUME 9.3 fL (7.4-10.4); MONO % 4.7 %; MONO ABS # 0.36 K/uL (0.11-0.59); NEUT % 86.5 %; PLATELET COUNT 149 K/uL (130-400); RED CELL DISTRIBUTION WIDTH CV 17.9 % (11.5-14.5); RED CELL DISTRIBUTION WIDTH SD 62.6 fL (36.4-46.3); WHITE BLOOD COUNT 7.63 K/uL (4.8-10.8)
[2018-01-04 06:23] LABS: INR 1.4 (0.9-1.1)
[2018-01-04 06:40] LABS: CALCIUM 9.2 mg/dl (8.5-10.1); CREATININE 0.83 mg/dl (0.60-1.20); POTASSIUM 3.9 mmol/L (3.5-5.1)
[2018-01-04] MEDS: METOPROLOL TARTRATE 50 MG TAB PO SCH ×2 (08:26→21:30)
[2018-01-04] MEDS: MAGNESIUM OXIDE 400 MG TAB PO SCH ×2 (08:26→21:30)
[2018-01-04] MEDS: FUROSEMIDE INJ 40 MG in SYRINGE 0 ML IV SCH ×2 (08:26→16:47)
[2018-01-04] MEDS: ALLOPURINOL 300 MG TAB PO SCH (08:27)
[2018-01-04] MEDS: ASPIRIN 81 MG ECTAB PO SCH (08:27)
[2018-01-04] MEDS: INSULIN ASPART 100 UNITS/ML 3 ML PEN SC SCH ×4 (08:33→21:39)
[2018-01-04] MEDS: INSULIN GLARGINE SOLOSTAR 100 UNITS/ML 3 ML PEN SQ SCH (08:34)
--- NOTE | 2018-01-04 08:46 | Clinical Documentation Query ---
JENNIFER Mcpherson : CLINICAL DOCUMENTATION QUERY Most of the BMI diagnoses assign to MDC 23; BMI may not be assigned as PDx. BMI should only be captured as a secondary diagnosis. You may capture your patient's BMI value from documentation other than the physician's, e.g. the legislative assistant. However, the physician must document a correlating diagnosis in the medical record. *A significantly high ( > 40) or low ( < 19) BMI will qualify as a CC and impact the severity of illness and risk of mortality of your patient. *A BMI > 40 is an endocrine diagnosis (MDC 10). *Morbid obesity is defined by the [employer] as having a BMI >40 or, being 100 pounds or more above ideal body weight or, having a BMI >35 with one or more co-morbid conditions. In your clinical opinion is this patient being managed for: ( ) Morbid obesity, BMI 49.8 kg/m*m ( ) Not Agree ( ) Other explanation of clinical findings (Please Explain) ( ) Unable to determine (Please Define) ( ) Need to Discuss The medical record reflects the following clinical findings, treatment, and risk factors. Official Guidelines: General Guidelines 14. Documentation for BMI, Depth of Non-pressure ulcers, Pressure Ulcer Stages, Coma Scale, and NIH Stroke Scale For the Body Mass Index (BMI), depth of non-pressure chronic ulcers, pressure ulcer stage, coma scale, and NIH stroke scale (NIHSS) codes, code assignment may be based on medical record documentation from clinicians who are not the patient's provider (i.e., physician or other qualified healthcare practitioner legally accountable for establishing the patient's diagnosis), since this information is typically documented by other clinicians involved in the care of the patient (e.g., a dietitian often documents the BMI, a nurse often documents the pressure ulcer stages, and an emergency healthcare or medical often documents the coma scale). However, the associated diagnosis (such as overweight, obesity, acute stroke, or pressure ulcer) must be documented by the patient's provider. If there is conflicting medical record documentation, either from the same clinician or different clinicians, the patient's attending provider should be queried for clarification. The BMI, coma scale, and NIHSS codes codes should only be reported as secondary diagnoses. Please clarify and document your clinical opinion in the progress notes and discharge summary. Terms such as "probable", "suspected", "likely", "questionable", "possible", or "still to be ruled out" are acceptable. IF IN AGREEMENT, YOU MUST DOCUMENT ABOVE DIAGNOSTIC STATEMENT IN DAILY PROGRESS NOTES AND DISCHARGE SUMMARY. This document is not part of the patient's record. Thank You, Luis Varghese, RN [phone]
[2018-01-04] MEDS ORDERED: LISINOPRIL 20 MG TAB PO SCH (09:00)
--- NOTE | 2018-01-04 10:01 | Cardiology Consultation ---
Cardiology Consultation Date of Consultation: Jan 04, 2018 Requesting Physician: Dee Attending Lapping Machine Tender: Feng (Vinny Pierre PA-C) History of Present Illness Ms. Kumar is a 67 year old female who is being seen at the request of Dr. Price. Reason for consultation is right heart failure. Patient recently admitted to [facility] December 22, 2017 to December 23, 2017 due to hypertension, hypoglycemia, and atypical right sided chest discomfort that she describes as "quick electrical twinges going through me that happen every once in a while." At that time she was evaluated by Dr. Jackson. Her chest discomfort was noted to be reproducible and her cardiac workup was noted to be unremarkable. Resting echocardiography on 12/23/2017 revealed normal LV chamber size, wall motion, mild concentric LVH, normal LV systolic function. EF 60-65%. Moderate biatrial enlargement observed. No significant valvular pathology noted. The patient was seen in hospital follow-up by Dr. Jackson yesterday. At that time she described significant dyspnea with walking to the car. She was noted to have acute on chronic right heart failure and was advised to increase furosemide dosing. She was also referred for dobutamine stress echocardiography. The resting portion of the study was completed and revealed new RV akinesis. Due to her symptoms and echocardiographic findings she was referred to the ER to assess for an acute pulmonary embolism and/or acute pulmonary process. Chest x-ray showed moderate stable cardiomegaly; otherwise negative. CT showed no evidence of focal pulmonary consolidation and no CT evidence of an acute pulmonary embolism. Cardiomegaly was noted along with evidence of elevated right heart pressures. Additional findings included an aberrant right subclavian artery and mild stable mediastinal adenopathy. The patient has been admitted to the progressive care unit for evaluation and treatment of acute decompensated right heart failure. She is being treated with IV furosemide 40 mg every twelve hours along with fluid and sodium restrictions. She notes feeling somewhat better compared to yesterday. Complaints voiced at this time include fatigue, lack of energy. No new or worsening chest pain or discomfort. No tachypalpitations. She describes stable dyspnea to me today. She notes being quite inactive. She notes that the most activity she has done recently is brushing off her ramp which she describes as about the size of two hospital trays stands. She has a chronic stable cough and continues to smoke cigarettes. No hemoptysis. She denies orthopnea or PND to accompany the chronic right greater than left lower extremity edema. Denies near syncope or syncope. Denies fevers or chills. Denies history of CAD, NH, prior cardiac catheterization, heart murmur, rheumatic fever, or scarlet fever. 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 Tonsillectomy (Vinny Pierre PA-C) Family History Colon cancer Coronary artery disease FATHER ( OF NH AT AGE 71 ) BROTHER SISTER Diabetes mellitus MOTHER SISTER Mother at 47 from diabetic complications. Father and multiple siblings with CAD. (Vinny Pierre PA-C) Colon cancer Coronary artery disease FATHER ( OF NH AT AGE 71 ) BROTHER SISTER Diabetes mellitus MOTHER SISTER (Uli Toney,D.O.) Social History Smoker. No alcohol. No illegal drug use. in 2002. 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 Lives alone. Smoking Status: Current Every Day Smoker (Vinny Pierre PA-C) Review Of Systems General: No fevers or chills. HEENT: No headache. Cardiovascular: See above. Pulmonary: See above. Gastrointestinal: Denies nausea, vomiting, or diarrhea. No melena or hematochezia. Skin: + Rash, skin folds. Musculoskeletal: Back pain. Knee pain. Neurological: Denies history of TIA, CVA, or seizures Ambulation is via a cane. Complete review of systems is as stated above, negative, or noncontributory. (Vinny Pierre PA-C) Allergies Coded Allergies: Penicillins (Verified Allergy, Mild, 01/03/18) Rofecoxib (Verified Allergy, Unknown, 01/03/18) Sulindac (Verified Allergy, Unknown, 01/03/18) Medications Reported Home Medications Medications Dose Route/Sig Max Daily Dose Days Date Category Dose Instructions Ultram (Tramadol HCl) 50 Mg Tab 50 Mg PO Q6 PRN 01/03/18 Reported Vitamin B12 (Cyanocobalamin) 1,000 Mcg Tab 1,000 Mcg PO DAILY 01/03/18 Reported Lasix (Furosemide) 40 Mg Tab 40 Mg PO BID 01/03/18 Reported Lantus Solostar (Insulin Glargine) 100 Unit/Ml Inj 30 Units SQ QAM 30 12/23/17 Rx Inject 30 Units under the skin every morning. Vitamin D3 (Cholecalciferol) 1,000 Unit Tab 2,000 Units PO DAILY 12/22/17 Reported Allopurinol 300 Mg Tab 300 Mg PO DAILY 12/22/17 Reported Digox (Digoxin) 250 Mcg Tab 250 Mcg PO DAILY 12/22/17 Reported Mag-Ox (Magnesium Oxide) 400 Mg Tab 400 Mg PO BID 04/27/17 Reported Repaglinide 2 Mg Tab 4 Mg PO AC 04/27/17 Reported Warfarin Sodium 3 Mg Tab 4.5 Mg PO UD 04/27/17 Reported Prednisone 10 Mg Tab 10 Mg PO UD 04/27/17 Reported RESQUE KIT UD Aspirin EC Low Dose (Aspirin) 81 Mg Ectab 81 Mg PO DAILY 04/27/17 Reported Lopressor (Metoprolol Tartrate) 50 Mg Tab 50 Mg PO BID 06/09/14 Reported Glucophage (Metformin Hcl) 500 Mg Tab 1,000 Mg PO BID 06/09/14 Reported 2 TABLETS WITH BREAKFAST AND HS Prinivil (Lisinopril) 20 Mg Tab 20 Mg PO QAM 06/09/14 Reported Neurontin (Gabapentin) 100 Mg Cap 300 Mg PO HS 11/26/13 Reported Nitrostat (Nitroglycerin) 0.4 Mg Tab 0.4 Mg UT PRN 03/24/11 Reported NEEDED FOR CHEST PAIN ; ONE TABLET UNDER THE TONGUE EVERY 5 MINUTES, UP TO 3 DOSES. Zocor (Simvastatin) 80 Mg Tab 80 Mg PO HS 03/17/11 Reported (Vinny Pierre PA-C) Physical Exam Vital Signs (Last 8hrs): Last 8 Hrs Date Time Temp Pulse Resp B/P (MAP) Pulse Ox O2 Delivery O2 Flow Rate FiO2 01/04/18 08:20 Nasal Cannula 2.0 01/04/18 08:20 94 Nasal Cannula 2.0 01/04/18 07:25 36.9 73 18 149/60 (89) 94 2.0 01/04/18 04:13 36.6 71 18 147/77 (100) 92 2.0 01/04/18 04:00 90 Nasal Cannula 2.0 01/04/18 04:00 36.2 72 16 153/79 (103) 90 Nasal Cannula 2.0 90 General: Alert and Oriented x3. NAD. Elevated BMI HEENT: Normocephalic Atraumatic. PER, EOMI, conjunctiva and sclera clear Neck: No carotid bruits noted. No overt JVD. Respiratory: Decreased/diminished breath sounds. Bibasilar rales. No wheeze. No rhonchi. Cardiovascular: Irregularly irregular around 80 currently. No murmurs appreciated. Abdomen: +BS. Soft. Nontender. Extremities: 2+ right greater than left lower extremity edema. Mild erythema, right greater than left shins. No overt cellulitis. No clubbing. No cyanosis. No pulses appreciated. Neuro: No focal deficits. Psychiatric: Normal affect. (Vinny Pierre, SEGUNDO) Data Last 24 Hours Test 01/03/18 12:09 01/03/18 12:51 01/03/18 12:55 01/03/18 14:32 Creatine Kinase MB Ratio White Blood Count 8.62 K/uL Red Blood Count 4.19 M/uL Hemoglobin 12.1 g/dL Hematocrit 40.4 % Mean Corpuscular Volume 96.4 fL Mean Corpuscular Hemoglobin 28.9 pg Mean Corpuscular Hemoglobin Concent 30.0 g/dl Platelet Count 172 K/uL Mean Platelet Volume 10.3 fL Neutrophils (%) (Auto) 81.1 % Lymphocytes (%) (Auto) 13.3 % Monocytes (%) (Auto) 4.3 % Eosinophils (%) (Auto) 0.8 % Basophils (%) (Auto) 0.2 % Neutrophils # (Auto) 6.98 K/uL Lymphocytes # (Auto) 1.15 K/uL Monocytes # (Auto) 0.37 K/uL Eosinophils # (Auto) 0.07 K/uL Basophils # (Auto) 0.02 K/uL RDW Standard Deviation 61.9 fL RDW Coefficient of Variation 17.7 % Immature Granulocyte % (Auto) 0.3 % Immature Granulocyte # (Auto) 0.03 K/uL Sodium Level 142 mmol/L Potassium Level mmol/L 4.4 mmol/L Chloride Level 106 mmol/L Carbon Dioxide Level 32 mmol/L Anion Gap 4.0 mmol/L Blood Urea Nitrogen 22 mg/dl Creatinine 0.83 mg/dl Est Creatinine Clear Calc Drug Dose 78.3 ml/min Estimated GFR () 84.0 Estimated GFR (Non- 72.5 BUN/Creatinine Ratio 26.7 Random Glucose 127 mg/dl Calcium Level 9.1 mg/dl Magnesium Level mg/dl 2.0 mg/dl Total Bilirubin 0.5 mg/dl Direct Bilirubin mg/dl 0.2 mg/dl Aspartate Amino Transf (AST/SGOT) U/L 7 U/L Alanine Aminotransferase (ALT/SGPT) 12 U/L Alkaline Phosphatase 59 U/L Total Creatine Kinase U/L 25 U/L Creatine Kinase MB < 0.5 ng/ml Pro-B-Type Natriuretic Peptide 4104 pg/ml Total Protein 6.8 gm/dl Albumin 3.2 gm/dl Bedside D-Dimer > 450 ng/mlFEU Prothrombin Time 13.4 SECONDS Prothromb Time International Ratio 1.3 Activated Partial Thromboplast Time 26.7 SECONDS Partial Thromboplastin Ratio 1.0 Test 01/03/18 20:14 01/04/18 05:49 01/04/18 07:49 Bedside Glucose 127 mg/dl 147 mg/dl White Blood Count 7.63 K/uL Red Blood Count 3.99 M/uL Hemoglobin 11.7 g/dL Hematocrit 38.6 % Mean Corpuscular Volume 96.7 fL Mean Corpuscular Hemoglobin 29.3 pg Mean Corpuscular Hemoglobin Concent 30.3 g/dl Platelet Count 149 K/uL Mean Platelet Volume 9.3 fL Neutrophils (%) (Auto) 86.5 % Lymphocytes (%) (Auto) 6.9 % Monocytes (%) (Auto) 4.7 % Eosinophils (%) (Auto) 1.3 % Basophils (%) (Auto) 0.3 % Neutrophils # (Auto) 6.60 K/uL Lymphocytes # (Auto) 0.53 K/uL Monocytes # (Auto) 0.36 K/uL Eosinophils # (Auto) 0.10 K/uL Basophils # (Auto) 0.02 K/uL RDW Standard Deviation 62.6 fL RDW Coefficient of Variation 17.9 % Immature Granulocyte % (Auto) 0.3 % Immature Granulocyte # (Auto) 0.02 K/uL Prothrombin Time 14.4 SECONDS Prothromb Time International Ratio 1.4 Sodium Level 141 mmol/L Potassium Level 3.9 mmol/L Chloride Level 101 mmol/L Carbon Dioxide Level 34 mmol/L Anion Gap 6.0 mmol/L Blood Urea Nitrogen 20 mg/dl Creatinine 0.83 mg/dl Est Creatinine Clear Calc Drug Dose 78.3 ml/min Estimated GFR () 84.0 Estimated GFR (Non- 72.5 BUN/Creatinine Ratio 23.9 Random Glucose 133 mg/dl Calcium Level 9.2 mg/dl Imaging: See above. EKG dated and timed 03-JAN-2018 @ 12:15:48: Poor data quality, interpretation may be adversely affected. Atrial fibrillation at 69 bpm. Low voltage QRS. ST & T wave abnormality, consider anterior ischemia. When compared with ECG of 08:23, nonspecific T wave abnormality, improved in Inferior leads. QT has shortened. Confirmed by MAIRA SILVA ([id number]) on 01/03/2018 2:31:08 PM Telemetry: Atrial fibrillation currently 80-90 bpm. Bradycardia down to 44 bpm overnight. Rare ventricular couplets. This morning at 08:05:10 there is a 2.8 second pause. (Vinny Pierre PA-C) Assessment & Plan Acute decompensated right heart failure signs and symptoms Monitor I/O's and weights daily on a standing scale Sodium and fluid restrictions Continue IV furosemide, 40 mg every twelve hours Daily metabolic panels. Chronic atrial fibrillation with moderate nocturnal bradycardia and a 2.8 second pause this morning Note: She did NOT utilize CPAP therapy last night Check digoxin level and a TSH Hold digoxin, likely restarting in 1-2 days at 125 mcg/day Continue chronic Coumadin anticoagulation. INR goal 2.0 to 3.0 Moderate obstructive sleep apnea and nocturnal hypoxemia Recommend utilization of her home CPAP device every night. Recommend repeat overnight sleep testing and Sleep Medicine follow-up as an outpatient Hypertension, hypertensive heart disease Increase lisinopril for additional blood pressure control Avoid calcium channel yessi therapy if possible Hydralazine may be a good next antihypertensive agent Dyslipidemia Change high dose simvastatin to atorvastatin in an attempt to aid chronic myalgias/arthralgias. Further recommendations pending the above, evaluation by Dr. Toney, and her ongoing hospitalization. (Vinny Pierre PA-C) CARDIOLOGY ATTENDING ADDENDUM: The patient was seen and personally examined. Agree with Vinny Pierre PA-C's findings and plans as documented above with additions as noted below. Subjective: Patient denies any shortness of breath however she has for the most part been in bed or in the bedside chair. Exam: 1+ lower extremity edema, irregular rhythm, no significant murmurs Impression: Acute decompensation right-sided heart failure, newly recognized right heart failure noted on resting portion of echo performed 01/03/[address] angiogram was negative for PE. Creatinine is stable post diuretic therapy and contrast exposure. Atrial fibrillation with bradycardia noted overnight last night during anticipated hours of sleep. Follow-up TSH and digoxin levels were within normal limits. Digoxin placed on hold. Plan: Continue IV diuretic therapy. Patient does not know her CPAP settings, and given the weather, no acute bring in her home machine from home. We'll continue supplemental oxygen. Patient to be reassessed tomorrow. (Uli Toney D.O.)
[2018-01-04] MEDS ORDERED: DIGOXIN 0.25 MG TAB PO SCH (16:00)
[2018-01-04] MEDS ORDERED: WARFARIN SOD 3 MG TAB PO SCH (16:00)
[2018-01-04] MEDS: WARFARIN TAB 4 MG, WARFARIN TAB 0.5 MG PO SCH ×2 (16:48)
--- NOTE | 2018-01-04 17:54 | Progress Note ---
Medicine Progress Note Date & Time of Visit: Jan 04, 2018 at 17:42. Subjective patient seen sitting up in bed, comfortable states she feels improved compared to yesterday legs still swollen denies chest pain, dyspnea, palpitations, dizziness, nausea/vomiting no other symptoms Objective Last 8 Hrs Date Time Temp Pulse Resp B/P (MAP) Pulse Ox O2 Delivery O2 Flow Rate FiO2 01/04/18 15:16 36.5 76 20 142/74 (96) 94 Nasal Cannula 2.0 01/04/18 12:10 Nasal Cannula 2.0 01/04/18 11:59 37.0 70 18 131/87 (102) 97 2.0 Physical Exam: General- oriented x 3, not in distress, speaks in sentences with no effort Head- atraumatic Eyes- anicteric ENT- oropharynx clear Neck- supple, no JVD Lungs- mild rales left base, no wheezing Heart- regular rhythm; no murmur, normal rate Abdomen- normal bowel sounds, soft, nontender Extremities- grade 1 lower leg edema, no calf tenderness Neuro- alert, oriented x 3; no gross focal deficits Skin- warm & dry Laboratory Results: Last 24 Hours Test 01/03/18 20:14 01/04/18 05:49 01/04/18 07:49 01/04/18 10:57 Bedside Glucose 127 mg/dl 147 mg/dl White Blood Count 7.63 K/uL Red Blood Count 3.99 M/uL Hemoglobin 11.7 g/dL Hematocrit 38.6 % Mean Corpuscular Volume 96.7 fL Mean Corpuscular Hemoglobin 29.3 pg Mean Corpuscular Hemoglobin Concent 30.3 g/dl Platelet Count 149 K/uL Mean Platelet Volume 9.3 fL Neutrophils (%) (Auto) 86.5 % Lymphocytes (%) (Auto) 6.9 % Monocytes (%) (Auto) 4.7 % Eosinophils (%) (Auto) 1.3 % Basophils (%) (Auto) 0.3 % Neutrophils # (Auto) 6.60 K/uL Lymphocytes # (Auto) 0.53 K/uL Monocytes # (Auto) 0.36 K/uL Eosinophils # (Auto) 0.10 K/uL Basophils # (Auto) 0.02 K/uL RDW Standard Deviation 62.6 fL RDW Coefficient of Variation 17.9 % Immature Granulocyte % (Auto) 0.3 % Immature Granulocyte # (Auto) 0.02 K/uL Prothrombin Time 14.4 SECONDS Prothromb Time International Ratio 1.4 Sodium Level 141 mmol/L Potassium Level 3.9 mmol/L Chloride Level 101 mmol/L Carbon Dioxide Level 34 mmol/L Anion Gap 6.0 mmol/L Blood Urea Nitrogen 20 mg/dl Creatinine 0.83 mg/dl Est Creatinine Clear Calc Drug Dose 78.3 ml/min Estimated GFR () 84.0 Estimated GFR (Non- 72.5 BUN/Creatinine Ratio 23.9 Random Glucose 133 mg/dl Calcium Level 9.2 mg/dl Thyroid Stimulating Hormone (TSH) 2.830 uIu/ml Digoxin Level 1.1 ng/ml Test 01/04/18 11:29 01/04/18 16:32 Bedside Glucose 184 mg/dl 120 mg/dl Assessment & Plan 67 year old female with history of CHF Diastolic Type, Chronic Hypoxic Respiratory Failure, COPD, DM, HTN, presenting with shortness of breath. RIGHT SIDED CHF - diuresing well continue Lasix 40mg IV q12h fluid restriction - Cardiology on board - continue Metoprolol CHRONIC HYPOXIC RESPIRATORY FAILURE - on 2 liter via NC - monitor A FIB - on Metoprolol and Coumadin INR 1.4 - Digoxin held for bradycardia, pause monitor DM 2 - Lantus 30 units in AM ISS hold oral medications HTN - on Metoprolol Lisinopril increased DVT proph - on coumadin heparin SC q8h until INR therapeutic Disposition lives at home anticipate d/c home when medically stable Current Inpatient Medications: Current Inpatient Medications Medications (Trade) Dose Ordered Sig/Amara Route Start Time Stop Time Status Last Admin Dose Admin Ioversol (Optiray 320) 100 ml UD PRN IV 01/03/18 13:45 01/07/18 13:44 Acetaminophen (Tylenol Tab) 650 mg Q4H PRN PO 01/03/18 16:30 02/02/18 16:29 Nitroglycerin (Nitrostat Tab) 0.4 mg UD PRN SL 01/03/18 16:30 02/02/18 16:29 Furosemide 40 mg/ Syringe 4 ml @ 4 mls/min BID17 IV 01/03/18 21:00 02/02/18 20:59 01/04/18 16:47 4 MLS/MIN Allopurinol (Zyloprim Tab) 300 mg DAILY PO 2/7/18 09:00 02/03/18 08:59 01/04/18 08:27 300 MG Aspirin (Ecotrin Tab) 81 mg DAILY PO 01/04/18 09:00 02/03/18 08:59 01/04/18 08:27 81 MG Gabapentin (Neurontin Cap) 300 mg HS PO 01/03/18 21:00 02/02/18 20:59 01/03/18 21:38 300 MG Insulin Glargine (Lantus Solostar Pen) 30 units QAM SQ 01/04/18 09:00 02/03/18 08:59 01/04/18 08:34 30 UNITS Magnesium Oxide (Mag-Ox Tab) 400 mg BID PO 01/03/18 21:00 02/02/18 20:59 01/04/18 08:26 400 MG Metoprolol Tartrate (Lopressor Tab) 50 mg BID PO 01/03/18 21:00 02/02/18 20:59 01/04/18 08:26 50 MG Tramadol HCl (Ultram Tab) 50 mg Q6 PRN PO 01/03/18 16:30 02/02/18 16:29 Glucose (Glucose 40% Gel) 15-30 GRAMS 15 GRAMS... UD PRN PO 01/03/18 16:45 02/02/18 16:44 Glucose (Glucose Chew Tab) 4-8 Tablets 4 Tabl... UD PRN PO 01/03/18 16:45 02/02/18 16:44 Dextrose (Dextrose 50% 50ML Syringe) 25-50ML OF 50% DW IV FOR... UD PRN IV 01/03/18 16:45 02/02/18 16:44 Glucagon (Glucagon Inj) 1 mg UD PRN SQ 01/03/18 16:45 02/02/18 16:44 Warfarin Sodium (Coumadin Tab) 4.5 mg DAILY@16 PO 01/04/18 16:00 02/03/18 15:59 01/04/18 16:48 4.5 MG Insulin Aspart (novoLOG ASPART) SLIDING SCALE If C... ACHS SC 01/03/18 21:00 02/02/18 20:59 01/04/18 12:16 2 UNITS Nystatin (Mycostatin Powder) 1 appln TID PRN EXT 2/6/18 21:15 02/02/18 21:14 01/03/18 22:11 1 APPLN Lisinopril (Zestril Tab) 20 mg BID PO 01/04/18 21:00 02/03/18 08:59 Atorvastatin Calcium (Lipitor Tab) 80 mg QAM PO 01/05/18 09:00 02/04/18 08:59
[2018-01-04] MEDS: NYSTATIN POWDER 15GM BTL EXT PRN (21:28)
[2018-01-04] MEDS: LISINOPRIL 20 MG TAB PO SCH (21:29)
[2018-01-04] MEDS: GABAPENTIN 300 MG CAP PO SCH (21:29)
[2018-01-04] MEDS: HEPARIN SOD 5000 UNIT/0.5 ML CARP SQ SCH (21:40)
[2018-01-05] VITALS (10 sets, daily range): BP systolic 118–140; BP diastolic 68–89; PULSE 58–88; TEMP 36.4–36.8; O2SAT 88–96
[2018-01-05 05:53] LABS: BASO % 0.2 %; BASO ABS # 0.01 K/uL (0-0.2); EOS % 1.8 %; EOS ABS # 0.11 K/uL (0-0.5); HEMATOCRIT 37.8 % (37-47); HEMOGLOBIN 11.3 g/dL (12.0-16.0); IG# 0.01 K/uL (0.00-0.02); LYMPH % 13.2 %; LYMPH ABS # 0.79 K/uL (1.2-3.4); MEAN CELL VOLUME 95.9 fL (80-100); MEAN CORPUSCULAR HEMOGLOBIN 28.7 pg (25-34); MEAN CORPUSCULAR HGB CONC 29.9 g/dl (32-36); MEAN PLATELET VOLUME 9.8 fL (7.4-10.4); MONO % 6.8 %; MONO ABS # 0.41 K/uL (0.11-0.59); NEUT % 77.8 %; NEUT ABS # 4.67 K/uL (1.4-6.5); PLATELET COUNT 159 K/uL (130-400); RED CELL DISTRIBUTION WIDTH CV 17.3 % (11.5-14.5); RED CELL DISTRIBUTION WIDTH SD 60.9 fL (36.4-46.3)
[2018-01-05 06:08] LABS: INR 1.7 (0.9-1.1)
[2018-01-05] MEDS: HEPARIN SOD 5000 UNIT/0.5 ML CARP SQ SCH ×3 (06:23→21:20)
[2018-01-05 06:31] LABS: CALCIUM 9.1 mg/dl (8.5-10.1); CREATININE 0.86 mg/dl (0.60-1.20); POTASSIUM 3.6 mmol/L (3.5-5.1)
[2018-01-05] MEDS: FUROSEMIDE INJ 40 MG in SYRINGE 0 ML IV SCH ×2 (07:57→16:43)
[2018-01-05] MEDS: ASPIRIN 81 MG ECTAB PO SCH (07:59)
[2018-01-05] MEDS: LISINOPRIL 20 MG TAB PO SCH ×2 (08:00→21:18)
[2018-01-05] MEDS: METOPROLOL TARTRATE 50 MG TAB PO SCH ×2 (08:00→21:18)
[2018-01-05] MEDS: MAGNESIUM OXIDE 400 MG TAB PO SCH ×2 (08:01→21:18)
[2018-01-05] MEDS: ALLOPURINOL 300 MG TAB PO SCH (08:01)
[2018-01-05] MEDS: INSULIN ASPART 100 UNITS/ML 3 ML PEN SC SCH ×4 (08:06→21:00)
[2018-01-05] MEDS: INSULIN GLARGINE SOLOSTAR 100 UNITS/ML 3 ML PEN SQ SCH (08:06)
[2018-01-05] MEDS: ATORVASTATIN 40 MG TAB PO SCH (08:46)
--- NOTE | 2018-01-05 09:08 | Cardiology Follow-Up ---
Subjective General Date of Service: Jan 05, 2018. Chief Complaint: SOB Pt evaluation today including: conversation w/ patient, physical exam, chart review, lab review, review of studies, review of inpatient medication list History of Present Illness Patient seen and examined. Chart, medications, labs, and telemetry reviewed. Feeling better. Improved dyspnea and peripheral edema. No chest pain, tachypalpitations, dizziness, near syncope, syncope, fevers or chills. Telemetry: Atrial fibrillation with a slow ventricular response. Ventricular rate is currently in the upper 50's, down to 38 bpm overnight. Rare PVC, couplet. Allergies Coded Allergies: Penicillins (Verified Allergy, Mild, 01/03/18) Rofecoxib (Verified Allergy, Unknown, 01/03/18) Sulindac (Verified Allergy, Unknown, 01/03/18) Social History Smoking Status: Current Every Day Smoker Hx Tobacco Use In Past Year?: Yes Hx Alcohol Use - Type And Amou: Yes Hx Substance Use - Type And Am: No Problem List Medical Problems: (1) Acute coronary syndrome Status: Acute (2) Chest pain, precordial Status: Acute (3) CHF (congestive heart failure) Status: Chronic (4) Pancreatitis Status: Acute Physical Exam Vital Signs Last Vital Signs Documentation Date Time Temp Pulse Resp B/P (MAP) Pulse Ox O2 Delivery O2 Flow Rate FiO2 01/05/18 07:04 36.8 62 20 136/68 (90) 92 Nasal Cannula 2.0 01/04/18 04:00 90 Physical Exam Constitutional: General Apperance: overweight Level of Distress: NAD Psychiatric: Mental Status: active & alert Orientation: to time, to place, to person Memory: recent memory normal, remote memory normal Head: normocephalic, atraumatic Eyes: Pupils: PERRLA Neck: pertinent finding (No overt JVP (examined in a chair)) Lungs: Respiratory effort: no dyspnea Auscultation: no wheezing, no rhonchi, deminished air movement, decreased breath sounds, rales/crackles on the left, rales/crackles on the right Cardiovascular: Heart Auscultation: no murmurs, no rubs, no gallops, irregular rate rhythm Peripheral Pulses: Dorsalis Pedis Pulse: absent on the left, absent on the right Abdomen: Bowel Sounds: normal Inspection & Palpation: soft, non-distended, no masses Extremities: no cyanosis, no clubbing, edema (chronic indurated edema), pertinent finding (less erythema) Neurologic: Cranial Nerves: grossly intact Assessment and Plan Assessment and Plan Acute decompensated right heart failure signs and symptoms Monitor I/O's and weights daily on the same standing scale Continue sodium and fluid restrictions Continue IV furosemide (40 mg every twelve hours) through today, holding in AM until evaluated. Supplement potassium orally today Metabolic panel in the AM Chronic atrial fibrillation, currently with a slow ventricular response and mild nocturnal bradycardia, 2.8 second pause in the AM of 01/04/2018. Digoxin discontinued. Decrease metoprolol tartrate to 25 mg twice a day Continue chronic Coumadin anticoagulation. INR goal 2.0 to 3.0 Moderate obstructive sleep apnea and nocturnal hypoxemia CPAP therapy not utilized last night Recommend utilization CPAP every night. Recommend repeat overnight sleep testing and Sleep Medicine follow-up as an outpatient Hypertension, hypertensive heart disease Lisinopril increased for additional blood pressure control with improvement. Recommend avoiding calcium channel yessi therapy in this patient. Dyslipidemia Simvastatin changed to atorvastatin in an attempt to aid chronic myalgias/ arthralgias. CARDIOLOGY ATTENDING ADDENDUM: The patient was seen and personally examined. Agree with Vinny Pierre PA-C's findings and plans as documented above. Diuresing well. Should elevate her legs when in chair. Laboratory Results Last 24 Hours Test 01/04/18 10:57 01/04/18 11:29 01/04/18 16:32 01/04/18 20:37 Thyroid Stimulating Hormone (TSH) 2.830 uIu/ml Digoxin Level 1.1 ng/ml Bedside Glucose 184 mg/dl 120 mg/dl 211 mg/dl Test 01/05/18 05:23 01/05/18 07:36 White Blood Count 6.00 K/uL Red Blood Count 3.94 M/uL Hemoglobin 11.3 g/dL Hematocrit 37.8 % Mean Corpuscular Volume 95.9 fL Mean Corpuscular Hemoglobin 28.7 pg Mean Corpuscular Hemoglobin Concent 29.9 g/dl Platelet Count 159 K/uL Mean Platelet Volume 9.8 fL Neutrophils (%) (Auto) 77.8 % Lymphocytes (%) (Auto) 13.2 % Monocytes (%) (Auto) 6.8 % Eosinophils (%) (Auto) 1.8 % Basophils (%) (Auto) 0.2 % Neutrophils # (Auto) 4.67 K/uL Lymphocytes # (Auto) 0.79 K/uL Monocytes # (Auto) 0.41 K/uL Eosinophils # (Auto) 0.11 K/uL Basophils # (Auto) 0.01 K/uL RDW Standard Deviation 60.9 fL RDW Coefficient of Variation 17.3 % Immature Granulocyte % (Auto) 0.2 % Immature Granulocyte # (Auto) 0.01 K/uL Prothrombin Time 17.3 SECONDS Prothromb Time International Ratio 1.7 Sodium Level 139 mmol/L Potassium Level 3.6 mmol/L Chloride Level 99 mmol/L Carbon Dioxide Level 35 mmol/L Anion Gap 5.0 mmol/L Blood Urea Nitrogen 24 mg/dl Creatinine 0.86 mg/dl Est Creatinine Clear Calc Drug Dose 73.0 ml/min Estimated GFR () 80.5 Estimated GFR (Non- 69.4 BUN/Creatinine Ratio 27.5 Random Glucose 138 mg/dl Calcium Level 9.1 mg/dl Bedside Glucose 148 mg/dl
[2018-01-05] MEDS: POTASSIUM CHLORIDE 20 MEQ TABCR PO SCH ×2 (09:47→21:18)
[2018-01-05] MEDS: WARFARIN TAB 4 MG, WARFARIN TAB 0.5 MG PO SCH ×2 (16:44)
--- NOTE | 2018-01-05 19:12 | Progress Note ---
Medicine Progress Note Date & Time of Visit: Jan 05, 2018 at 19:09. Subjective sitting up in bed, in good spirits states she continues to feel better denies chest pain, dyspnea no leg pain no dizziness no other symptoms Objective Last 8 Hrs Date Time Temp Pulse Resp B/P (MAP) Pulse Ox O2 Delivery O2 Flow Rate FiO2 01/05/18 16:00 92 Nasal Cannula 2.0 01/05/18 14:45 36.7 70 20 140/68 (92) 93 Nasal Cannula 2.0 01/05/18 12:00 92 Nasal Cannula 2.0 Physical Exam: General- oriented x 3, not in distress, speaks in sentences with no effort Eyes- anicteric Neck- no JVD Lungs- clear breath sounds bilaterally Heart- regular rhythm; no murmur, normal rate Abdomen- normal bowel sounds, soft, nontender Extremities- grade 1 lower leg edema- improving, no calf tenderness Neuro- alert, oriented x 3; no gross focal deficits Skin- warm & dry Laboratory Results: Last 24 Hours Test 01/04/18 20:37 01/05/18 05:23 01/05/18 07:36 01/05/18 11:30 Bedside Glucose 211 mg/dl 148 mg/dl 210 mg/dl White Blood Count 6.00 K/uL Red Blood Count 3.94 M/uL Hemoglobin 11.3 g/dL Hematocrit 37.8 % Mean Corpuscular Volume 95.9 fL Mean Corpuscular Hemoglobin 28.7 pg Mean Corpuscular Hemoglobin Concent 29.9 g/dl Platelet Count 159 K/uL Mean Platelet Volume 9.8 fL Neutrophils (%) (Auto) 77.8 % Lymphocytes (%) (Auto) 13.2 % Monocytes (%) (Auto) 6.8 % Eosinophils (%) (Auto) 1.8 % Basophils (%) (Auto) 0.2 % Neutrophils # (Auto) 4.67 K/uL Lymphocytes # (Auto) 0.79 K/uL Monocytes # (Auto) 0.41 K/uL Eosinophils # (Auto) 0.11 K/uL Basophils # (Auto) 0.01 K/uL RDW Standard Deviation 60.9 fL RDW Coefficient of Variation 17.3 % Immature Granulocyte % (Auto) 0.2 % Immature Granulocyte # (Auto) 0.01 K/uL Prothrombin Time 17.3 SECONDS Prothromb Time International Ratio 1.7 Sodium Level 139 mmol/L Potassium Level 3.6 mmol/L Chloride Level 99 mmol/L Carbon Dioxide Level 35 mmol/L Anion Gap 5.0 mmol/L Blood Urea Nitrogen 24 mg/dl Creatinine 0.86 mg/dl Est Creatinine Clear Calc Drug Dose 73.0 ml/min Estimated GFR () 80.5 Estimated GFR (Non- 69.4 BUN/Creatinine Ratio 27.5 Random Glucose 138 mg/dl Calcium Level 9.1 mg/dl Test 01/05/18 16:19 Bedside Glucose 132 mg/dl Assessment & Plan 67 year old female with history of CHF Diastolic Type, Chronic Hypoxic Respiratory Failure, COPD, DM, HTN, presenting with shortness of breath. RIGHT SIDED CHF - diuresing well continue Lasix 40mg IV q12h fluid restriction - Cardiology on board - continue Metoprolol - improving overall CHRONIC HYPOXIC RESPIRATORY FAILURE - on 2 liter via NC - monitor A FIB - on Metoprolol and Coumadin INR 1.7 - Digoxin held for bradycardia, pause monitor DM 2 - Lantus 30 units in AM ISS hold oral medications HTN - on Metoprolol Lisinopril increased - BP stable NUVIA - CPAP ordered - patient to establish care with local [facility] ff up arranged for 01/20/[address] Jorgensen/PRASHANT Dejesus DVT prophylaxis - on coumadin heparin SC q8h until INR therapeutic Disposition lives at home anticipate d/c home when medically stable Current Inpatient Medications: Current Inpatient Medications Medications (Trade) Dose Ordered Sig/Amara Route Start Time Stop Time Status Last Admin Dose Admin Ioversol (Optiray 320) 100 ml UD PRN IV 01/03/18 13:45 01/07/18 13:44 Acetaminophen (Tylenol Tab) 650 mg Q4H PRN PO 01/03/18 16:30 02/02/18 16:29 Nitroglycerin (Nitrostat Tab) 0.4 mg UD PRN SL 01/03/18 16:30 02/02/18 16:29 Furosemide 40 mg/ Syringe 4 ml @ 4 mls/min BID17 IV 01/03/18 21:00 02/02/18 20:59 Future Hold 01/05/18 16:43 4 MLS/MIN Allopurinol (Zyloprim Tab) 300 mg DAILY PO 01/04/18 09:00 02/03/18 08:59 01/05/18 08:01 300 MG Aspirin (Ecotrin Tab) 81 mg DAILY PO 01/04/18 09:00 02/03/18 08:59 01/05/18 07:59 81 MG Gabapentin (Neurontin Cap) 300 mg HS PO 01/03/18 21:00 02/02/18 20:59 01/04/18 21:29 300 MG Insulin Glargine (Lantus Solostar Pen) 30 units QAM SQ 01/04/18 09:00 02/03/18 08:59 01/05/18 08:06 30 UNITS Magnesium Oxide (Mag-Ox Tab) 400 mg BID PO 01/03/18 21:00 02/02/18 20:59 01/05/18 08:01 400 MG Tramadol HCl (Ultram Tab) 50 mg Q6 PRN PO 01/03/18 16:30 02/02/18 16:29 Glucose (Glucose 40% Gel) 15-30 GRAMS 15 GRAMS... UD PRN PO 01/03/18 16:45 02/02/18 16:44 Glucose (Glucose Chew Tab) 4-8 Tablets 4 Tabl... UD PRN PO 01/03/18 16:45 02/02/18 16:44 Dextrose (Dextrose 50% 50ML Syringe) 25-50ML OF 50% DW IV FOR... UD PRN IV 01/03/18 16:45 02/02/18 16:44 Glucagon (Glucagon Inj) 1 mg UD PRN SQ 01/03/18 16:45 02/02/18 16:44 Warfarin Sodium (Coumadin Tab) 4.5 mg DAILY@16 PO 01/04/18 16:00 02/03/18 15:59 01/05/18 16:44 4.5 MG Insulin Aspart (novoLOG ASPART) SLIDING SCALE If C... ACHS SC 01/03/18 21:00 02/02/18 20:59 01/05/18 12:36 3 UNITS Nystatin (Mycostatin Powder) 1 appln TID PRN EXT 01/03/18 21:15 02/02/18 21:14 01/04/18 21:28 1 APPLN Lisinopril (Zestril Tab) 20 mg BID PO 01/04/18 21:00 02/03/18 08:59 01/05/18 08:00 20 MG Atorvastatin Calcium (Lipitor Tab) 80 mg QAM PO 01/05/18 09:00 02/04/18 08:59 01/05/18 08:46 80 MG Heparin Sodium (Porcine) (Heparin Sq 5000 Unit/0.5ml) 5,000 unit Q8 SQ 01/04/18 22:00 02/03/18 21:59 01/05/18 14:06 5,000 UNIT Potassium Chloride (Klor-Con Tab) 20 meq BID PO 01/05/18 09:00 01/05/18 23:00 01/05/18 09:47 20 MEQ Metoprolol Tartrate (Lopressor Tab) 25 mg BID PO 01/05/18 21:00 02/02/18 20:59
[2018-01-05] MEDS: GABAPENTIN 300 MG CAP PO SCH (21:18)
[2018-01-06 02:50] VITALS: BP 130/74; PULSE 72; TEMP 36.8; O2SAT 95
[2018-01-06] MEDS: HEPARIN SOD 5000 UNIT/0.5 ML CARP SQ SCH ×2 (06:18→14:00)
[2018-01-06 06:36] LABS: BASO % 0.3 %; BASO ABS # 0.02 K/uL (0-0.2); EOS % 1.3 %; EOS ABS # 0.08 K/uL (0-0.5); HEMATOCRIT 39.6 % (37-47); IG# 0.01 K/uL (0.00-0.02); LYMPH % 15.8 %; LYMPH ABS # 0.94 K/uL (1.2-3.4); MEAN CELL VOLUME 96.1 fL (80-100); MEAN CORPUSCULAR HEMOGLOBIN 29.1 pg (25-34); MEAN CORPUSCULAR HGB CONC 30.3 g/dl (32-36); MEAN PLATELET VOLUME 9.5 fL (7.4-10.4); MONO % 6.7 %; NEUT % 75.7 %; PLATELET COUNT 168 K/uL (130-400); RED CELL DISTRIBUTION WIDTH CV 17.7 % (11.5-14.5); RED CELL DISTRIBUTION WIDTH SD 61.9 fL (36.4-46.3); WHITE BLOOD COUNT 5.95 K/uL (4.8-10.8)
[2018-01-06 06:45] LABS: INR 1.5 (0.9-1.1)
[2018-01-06 06:56] LABS: CALCIUM 9.1 mg/dl (8.5-10.1); CREATININE 0.91 mg/dl (0.60-1.20); POTASSIUM 3.9 mmol/L (3.5-5.1)
[2018-01-06 08:12] VITALS: BP 134/75; PULSE 83; TEMP 36.6; O2SAT 92
[2018-01-06] MEDS: ATORVASTATIN 40 MG TAB PO SCH (08:19)
[2018-01-06] MEDS: ASPIRIN 81 MG ECTAB PO SCH (08:19)
[2018-01-06] MEDS: ALLOPURINOL 300 MG TAB PO SCH (08:19)
[2018-01-06] MEDS: MAGNESIUM OXIDE 400 MG TAB PO SCH (08:20)
[2018-01-06] MEDS: LISINOPRIL 20 MG TAB PO SCH (08:20)
[2018-01-06] MEDS: METOPROLOL TARTRATE 50 MG TAB PO SCH (08:20)
[2018-01-06] MEDS: INSULIN GLARGINE SOLOSTAR 100 UNITS/ML 3 ML PEN SQ SCH (08:30)
[2018-01-06] MEDS: INSULIN ASPART 100 UNITS/ML 3 ML PEN SC SCH ×2 (08:30→12:10)
--- NOTE | 2018-01-06 09:32 | Cardiology Follow-Up ---
Subjective General Date of Service: Jan 06, 2018. Chief Complaint: SOB Pt evaluation today including: conversation w/ patient, physical exam, chart review, lab review, review of studies, review of inpatient medication list History of Present Illness Patient seen and examined. Chart, medications, labs, and telemetry reviewed. Feeling significantly better. Notes "more energy, more awake, alive." Improved dyspnea. Legs feel better. Denies chest pain, palpitations, dizziness, near syncope, syncope, fevers or chills. Telemetry: Atrial fibrillation in the 80s'. Rare PVC, couplet. I/O's are negative 3,715 mL's overall. Weight's are recorded as being down 6.6 kg (14.5 pounds) Allergies Coded Allergies: Penicillins (Verified Allergy, Mild, 01/03/18) Rofecoxib (Verified Allergy, Unknown, 01/03/18) Sulindac (Verified Allergy, Unknown, 01/03/18) Social History Smoking Status: Current Every Day Smoker Hx Tobacco Use In Past Year?: Yes Hx Alcohol Use - Type And Amou: Yes Hx Substance Use - Type And Am: No Problem List Medical Problems: (1) Acute coronary syndrome Status: Acute (2) Chest pain, precordial Status: Acute (3) CHF (congestive heart failure) Status: Chronic (4) Pancreatitis Status: Acute Physical Exam Vital Signs Last Vital Signs Documentation Date Time Temp Pulse Resp B/P (MAP) Pulse Ox O2 Delivery O2 Flow Rate FiO2 01/06/18 08:30 CPAP 01/06/18 08:12 36.6 83 16 134/75 (94) 92 2.0 01/04/18 04:00 90 Physical Exam Constitutional: General Apperance: overweight Level of Distress: NAD Psychiatric: Mental Status: active & alert Orientation: to time, to place, to person Memory: recent memory normal, remote memory normal Head: normocephalic, atraumatic Eyes: Pupils: PERRLA Neck: pertinent finding (No JVP at 50 degrees) Lungs: Respiratory effort: no dyspnea Auscultation: no wheezing, no rhonchi, deminished air movement, decreased breath sounds, rales/crackles on the left, rales/crackles on the right Cardiovascular: Heart Auscultation: no murmurs, no rubs, no gallops, irregular rate rhythm Peripheral Pulses: Dorsalis Pedis Pulse: absent on the left, absent on the right Abdomen: Bowel Sounds: normal Inspection & Palpation: soft, non-distended, no masses Extremities: no cyanosis, no clubbing, edema (chronic indurated edema), pertinent finding (less erythema) Neurologic: Cranial Nerves: grossly intact Assessment and Plan Assessment and Plan Acute decompensated right heart failure signs and symptoms I/O's negative 3,715 mL's overall Weights, as recorded, are down 6.6 kg (14.5 pounds) since admission. Transition back to oral furosemide this morning, at 60 mg twice a day Continue sodium and fluid restrictions after discharge Chronic atrial fibrillation, Slow ventricular response observed with nocturnal bradycardia and pauses up to 3 seconds. Digoxin discontinued. Metoprolol tartrate decreased to 25 mg twice a day Continue chronic Coumadin anticoagulation. INR goal 2.0 to 3.0 Moderate obstructive sleep apnea and nocturnal hypoxemia CPAP therapy encouraged. Recommend repeat overnight sleep testing and Sleep Medicine follow-up as an outpatient Hypertension, hypertensive heart disease Lisinopril increased for additional blood pressure control with improvement. Avoid future use of calcium channel yessi therapy in this patient. Dyslipidemia Simvastatin changed to atorvastatin in an attempt to aid chronic myalgias/ arthralgias. Please call if any questions or concerns. Cardiology follow-up with Dr. Johnathon Jackson Jr., , Cardiology, [facility] [address], 01/09/2018, 10:30 AM. CARDIOLOGY ATTENDING ADDENDUM: Agree with Vinny Pierre PA-C's findings and plans as documented above. Patient discharged before I had the opportunity to examine her. Laboratory Results Last 24 Hours Test 01/05/18 11:30 01/05/18 16:19 01/05/18 20:30 01/06/18 06:11 Bedside Glucose 210 mg/dl 132 mg/dl 155 mg/dl White Blood Count 5.95 K/uL Red Blood Count 4.12 M/uL Hemoglobin 12.0 g/dL Hematocrit 39.6 % Mean Corpuscular Volume 96.1 fL Mean Corpuscular Hemoglobin 29.1 pg Mean Corpuscular Hemoglobin Concent 30.3 g/dl Platelet Count 168 K/uL Mean Platelet Volume 9.5 fL Neutrophils (%) (Auto) 75.7 % Lymphocytes (%) (Auto) 15.8 % Monocytes (%) (Auto) 6.7 % Eosinophils (%) (Auto) 1.3 % Basophils (%) (Auto) 0.3 % Neutrophils # (Auto) 4.50 K/uL Lymphocytes # (Auto) 0.94 K/uL Monocytes # (Auto) 0.40 K/uL Eosinophils # (Auto) 0.08 K/uL Basophils # (Auto) 0.02 K/uL RDW Standard Deviation 61.9 fL RDW Coefficient of Variation 17.7 % Immature Granulocyte % (Auto) 0.2 % Immature Granulocyte # (Auto) 0.01 K/uL Prothrombin Time 15.4 SECONDS Prothromb Time International Ratio 1.5 Sodium Level 139 mmol/L Potassium Level 3.9 mmol/L Chloride Level 99 mmol/L Carbon Dioxide Level 38 mmol/L Anion Gap 2.0 mmol/L Blood Urea Nitrogen 26 mg/dl Creatinine 0.91 mg/dl Est Creatinine Clear Calc Drug Dose 69.0 ml/min Estimated GFR () 75.1 Estimated GFR (Non- 64.8 BUN/Creatinine Ratio 28.6 Random Glucose 133 mg/dl Calcium Level 9.1 mg/dl Test 01/06/18 07:47 Bedside Glucose 153 mg/dl
[2018-01-06] MEDS ORDERED: FUROSEMIDE 20 MG TAB PO SCH (10:00)
[2018-01-06 12:04] VITALS: BP 134/73; PULSE 77; TEMP 36.4; O2SAT 94
[2018-01-06 15:01] VITALS: BP 144/67; PULSE 76; TEMP 36.4; O2SAT 92
--- NOTE | 2018-01-06 15:21 | Progress Note ---
Medicine Progress Note Date & Time of Visit: Jan 06, 2018 at 15:09. Subjective seen resting in bed, comfortable in good spirits states she feels better overall denies chest pain, dyspnea, palpitations, dizziness no other symptoms states she is ready and would like to be discharged today Objective Last 8 Hrs Date Time Temp Pulse Resp B/P (MAP) Pulse Ox O2 Delivery O2 Flow Rate FiO2 01/06/18 15:01 36.4 76 18 144/67 (92) 92 2.0 01/06/18 12:04 36.4 77 18 134/73 (93) 94 2.0 01/06/18 08:30 CPAP 01/06/18 08:12 36.6 83 16 134/75 (94) 92 2.0 Physical Exam: General- oriented x 3, not in distress, speaks in sentences with no effort Eyes- anicteric Neck- no JVD Lungs- clear breath sounds bilaterally, no rales/wheezes Heart- regular rhythm; no murmur, normal rate Abdomen- normal bowel sounds, soft, nontender Extremities- grade 1 lower leg edema- improving, no calf tenderness Neuro- alert, oriented x 3; no gross focal deficits Skin- warm & dry Laboratory Results: Last 24 Hours Test 01/05/18 16:19 01/05/18 20:30 01/06/18 06:11 01/06/18 07:47 Bedside Glucose 132 mg/dl 155 mg/dl 153 mg/dl White Blood Count 5.95 K/uL Red Blood Count 4.12 M/uL Hemoglobin 12.0 g/dL Hematocrit 39.6 % Mean Corpuscular Volume 96.1 fL Mean Corpuscular Hemoglobin 29.1 pg Mean Corpuscular Hemoglobin Concent 30.3 g/dl Platelet Count 168 K/uL Mean Platelet Volume 9.5 fL Neutrophils (%) (Auto) 75.7 % Lymphocytes (%) (Auto) 15.8 % Monocytes (%) (Auto) 6.7 % Eosinophils (%) (Auto) 1.3 % Basophils (%) (Auto) 0.3 % Neutrophils # (Auto) 4.50 K/uL Lymphocytes # (Auto) 0.94 K/uL Monocytes # (Auto) 0.40 K/uL Eosinophils # (Auto) 0.08 K/uL Basophils # (Auto) 0.02 K/uL RDW Standard Deviation 61.9 fL RDW Coefficient of Variation 17.7 % Immature Granulocyte % (Auto) 0.2 % Immature Granulocyte # (Auto) 0.01 K/uL Prothrombin Time 15.4 SECONDS Prothromb Time International Ratio 1.5 Sodium Level 139 mmol/L Potassium Level 3.9 mmol/L Chloride Level 99 mmol/L Carbon Dioxide Level 38 mmol/L Anion Gap 2.0 mmol/L Blood Urea Nitrogen 26 mg/dl Creatinine 0.91 mg/dl Est Creatinine Clear Calc Drug Dose 69.0 ml/min Estimated GFR () 75.1 Estimated GFR (Non- 64.8 BUN/Creatinine Ratio 28.6 Random Glucose 133 mg/dl Calcium Level 9.1 mg/dl Test 01/06/18 11:25 Bedside Glucose 167 mg/dl Assessment & Plan 67 year old female with history of CHF Diastolic Type, Chronic Hypoxic Respiratory Failure, COPD, DM, HTN, presenting with shortness of breath. RIGHT SIDED CHF - diuresed well with Lasix 40mg IV q12h fluid restriction. 2g Na diet - Cardiology evaluated patient PRASHANT Pierre/Dr Toney - d/c on: increase Lasix to 60mg BID emphasized fluid restriction, 2gNa diet, patient verbalized understanding CHRONIC HYPOXIC RESPIRATORY FAILURE NUVIA - on 2 liter via NC, CPAP at HS - patient to establish care with local [facility] Dr. Jorgensen in [facility] Jessica Dejesus PA-C for Dr. Jorgensen on 01/20/18 at 8:15am. A FIB - on Metoprolol and Coumadin INR 1.5 - discussed with coumadin clinic continue coumadin 6mg po daily until recheck INR on Tuesday coumadin clinic to call patient on Tuesday - Digoxin held for bradycardia, pause noted during admission Metoprolol decreased to 25mg BID DM 2 - resume usual regimen at home - outpatient follow up HTN - decreased Metoprolol Lisinopril increased - BP stable monitor DVT prophylaxis - on coumadin heparin SC q8h Disposition d/c home Cardiology follow-up with Dr. Johnathon Jackson Jr., DO, Cardiology, [facility], 01/09/2018, 10:30 AM. PCP next week Pulmonary ff up c/o Jessica Dejesus PA-C for Dr. Jorgensen on 01/20/18 at 8:15am. Current Inpatient Medications: Current Inpatient Medications Medications (Trade) Dose Ordered Sig/Amara Route Start Time Stop Time Status Last Admin Dose Admin Ioversol (Optiray 320) 100 ml UD PRN IV 01/03/18 13:45 01/07/18 13:44 Acetaminophen (Tylenol Tab) 650 mg Q4H PRN PO 01/03/18 16:30 02/02/18 16:29 Nitroglycerin (Nitrostat Tab) 0.4 mg UD PRN SL 01/03/18 16:30 02/02/18 16:29 Furosemide 40 mg/ Syringe 4 ml @ 4 mls/min BID17 IV 01/03/18 21:00 02/02/18 20:59 Future Hold 01/05/18 16:43 4 MLS/MIN Allopurinol (Zyloprim Tab) 300 mg DAILY PO 01/04/18 09:00 02/03/18 08:59 01/06/18 08:19 300 MG Aspirin (Ecotrin Tab) 81 mg DAILY PO 01/04/18 09:00 02/03/18 08:59 01/06/18 08:19 81 MG Gabapentin (Neurontin Cap) 300 mg HS PO 01/03/18 21:00 02/02/18 20:59 01/05/18 21:18 300 MG Insulin Glargine (Lantus Solostar Pen) 30 units QAM SQ 01/04/18 09:00 02/03/18 08:59 01/06/18 08:30 30 UNITS Magnesium Oxide (Mag-Ox Tab) 400 mg BID PO 01/03/18 21:00 02/02/18 20:59 01/06/18 08:20 400 MG Tramadol HCl (Ultram Tab) 50 mg Q6 PRN PO 01/03/18 16:30 02/02/18 16:29 Glucose (Glucose 40% Gel) 15-30 GRAMS 15 GRAMS... UD PRN PO 01/03/18 16:45 02/02/18 16:44 Glucose (Glucose Chew Tab) 4-8 Tablets 4 Tabl... UD PRN PO 01/03/18 16:45 02/02/18 16:44 Dextrose (Dextrose 50% 50ML Syringe) 25-50ML OF 50% DW IV FOR... UD PRN IV 01/03/18 16:45 02/02/18 16:44 Glucagon (Glucagon Inj) 1 mg UD PRN SQ 01/03/18 16:45 02/02/18 16:44 Insulin Aspart (novoLOG ASPART) SLIDING SCALE If C... ACHS SC 01/03/18 21:00 02/02/18 20:59 01/06/18 12:10 3 UNITS Nystatin (Mycostatin Powder) 1 appln TID PRN EXT 01/03/18 21:15 02/02/18 21:14 01/04/18 21:28 1 APPLN Lisinopril (Zestril Tab) 20 mg BID PO 01/04/18 21:00 02/03/18 08:59 01/06/18 08:20 20 MG Atorvastatin Calcium (Lipitor Tab) 80 mg QAM PO 01/05/18 09:00 02/04/18 08:59 01/06/18 08:19 80 MG Heparin Sodium (Porcine) (Heparin Sq 5000 Unit/0.5ml) 5,000 unit Q8 SQ 01/04/18 22:00 02/03/18 21:59 01/06/18 06:18 5,000 UNIT Metoprolol Tartrate (Lopressor Tab) 25 mg BID PO 01/05/18 21:00 02/02/18 20:59 01/06/18 08:20 25 MG Furosemide (Lasix Tab) 60 mg BID17 PO 01/06/18 10:00 02/05/18 09:59 01/06/18 10:58 60 MG Warfarin Sodium (Coumadin Tab) 6 mg DAILY@16 PO 01/06/18 16:00 02/05/18 15:59 UNV
[2018-01-06] MEDS ORDERED: METO50TA16 PO (15:27)
[2018-01-06] MEDS ORDERED: LSN20 PO (15:27)
[2018-01-06] MEDS ORDERED: LSX20 PO (15:27)
[2018-01-06] MEDS ORDERED: CMD6 PO (15:27)
[2018-01-06] MEDS ORDERED: LPT40 PO (15:27)
--- NOTE | 2018-01-06 15:39 | Discharge Summary ---
Discharge Summary Date of Service Jan 06, 2018. Discharge Summary Admission Date: Jan 03, 2018 at 16:17 Discharge Date: Jan 06, 2018 Discharge Disposition: Home Principal Diagnosis: RIGHT SIDED CHF EXACERBATION Secondary Diagnoses/Problems: Please refer to hospital course below. Procedures: CHEST ONE VIEW PORTABLE CLINICAL HISTORY: SOB, CHF dyspnea COMPARISON STUDY: 12/23/2017 FINDINGS: Moderate stable cardiomegaly. Diaphragms are smooth. Lungs are clear. The costophrenic angles are sharp. IMPRESSION: Moderate stable cardiomegaly. Otherwise negative study. CT ANGIOGRAM OF THE CHEST CLINICAL HISTORY: Shortness of breath. Elevated d-dimer. COMPARISON STUDY: Chest CT dated 12/22/2017 TECHNIQUE: Following the IV administration of 93 mL of Optiray-320, CT angiogram of the thorax was performed from the thoracic inlet to the lung bases utilizing the pulmonary embolus protocol. Images are reviewed in the axial, sagittal, and coronal planes. IV contrast was administered without complication. MIP imaging was performed. A dose lowering technique was utilized adhering to the principles of ALARA. CT DOSE: 722.28 mGy.cm FINDINGS: The heart is enlarged. There is reflux of contrast into the hepatic veins suggesting elevated right heart pressures. There are mildly enlarged right paratracheal, prevascular, and subcarinal lymph nodes. This finding remains unchanged the prior study. There was no evidence of thoracic aortic dilatation. There is apparent right subclavian artery. There were no pulmonary artery filling defects to indicate acute pulmonary embolism. There is a trace right pleural effusion There is respiratory motion artifact. There are right basilar atelectatic changes. There is subtle groundglass attenuation the lungs with a subtle mosaic pattern. This finding remains unchanged. There is no lobar consolidation. IMPRESSION: 1. No evidence of focal pulmonary consolidation 2. No CT evidence of acute pulmonary embolism 3. Cardiomegaly with evidence of elevated right heart pressures 4. Aberrant right subclavian artery 5. Mild mediastinal adenopathy unchanged from the prior study Consultations: PEG DRIVER DR. CARSON Pending Studies/Follow-Up: Please refer to hospital course below. Medication Reconciliation New Medications: Atorvastatin (Lipitor) 40 Mg Tab 80 MG PO QAM for 30 Days, #60 TABS 2 Refills Furosemide (Furosemide) 20 Mg Tab 60 MG PO BID17 for 30 Days, #180 TAB 2 Refills Lisinopril (Lisinopril) 20 Mg Tab 20 MG PO BID for 30 Days, #60 TAB 2 Refills Metoprolol Tartrate (Lopressor) (Lopressor) 50 Mg Tab 25 MG PO BID for 30 Days, #30 TAB 2 Refills Warfarin Sod (Coumadin) 6 Mg Tab 6 MG PO DAILY@16 for 10 Days, #10 TABS 0 Refills Continued Medications: Allopurinol (Allopurinol) 300 Mg Tab 300 MG PO DAILY Aspirin (Aspirin EC Low Dose) 81 Mg Ectab 81 MG PO DAILY Cholecalciferol (Vitamin D3) 1,000 Unit Tab 2000 UNITS PO DAILY Cyanocobalamin (Vitamin B12) 1,000 Mcg Tab 1000 MCG PO DAILY Gabapentin (Neurontin) 100 Mg Cap 300 MG PO HS, CAP Insulin Glargine (Lantus Solostar) 100 Unit/Ml Inj 30 UNITS SQ QAM for 30 Days, #5 PEN Inject 30 Units under the skin every morning. Magnesium Oxide (Mag-Ox) 400 Mg Tab 400 MG PO BID, TAB Metformin Hcl (Glucophage) 500 Mg Tab 1000 MG PO BID, TAB 2 TABLETS WITH BREAKFAST AND HS Nitroglycerin (Nitrostat) 0.4 Mg Tab 0.4 MG UT PRN, 0 Refills NEEDED FOR CHEST PAIN ; ONE TABLET UNDER THE TONGUE EVERY 5 MINUTES, UP TO 3 DOSES. Prednisone (Prednisone) 10 Mg Tab 10 MG PO UD, TAB RESQUE KIT UD Repaglinide (Repaglinide) 2 Mg Tab 4 MG PO AC Tramadol (Ultram) 50 Mg Tab 50 MG PO Q6 PRN for Pain Discontinued Medications: Digoxin (Digox) 250 Mcg Tab 250 MCG PO DAILY Furosemide (Lasix) 40 Mg Tab 40 MG PO BID Lisinopril (Prinivil) 20 Mg Tab 20 MG PO QAM, TAB Metoprolol Tartrate (Lopressor) 50 Mg Tab 50 MG PO BID, TAB Simvastatin (Zocor) 80 Mg Tab 80 MG PO HS, 0 Refills Warfarin Sodium (Warfarin Sodium) 3 Mg Tab 4.5 MG PO UD, #45 Admission Information HPI (per Admitting provider): 67 year old female with history of CHF Diastolic Type, Chronic Hypoxic Respiratory Failure, COPD, DM, HTN, presenting with shortness of breath. Patient discharge from [facility] on 12/23/17 after being evaluated for chest pain. She had a follow up visit with Dr. Jackson today and reported increasing shortness of breath and leg swelling. Stress Echo was performed showing RV strain. She was sent over to the ER for evaluation and management. At the ER, patient was given Lasix 40mg IV. On my exam, patient was seen sitting up in bed, comfortable. She states that she feels somewhat better compared to admission. CT chest: IMPRESSION: 1. No evidence of focal pulmonary consolidation 2. No CT evidence of acute pulmonary embolism 3. Cardiomegaly with evidence of elevated right heart pressures 4. Aberrant right subclavian artery 5. Mild mediastinal adenopathy unchanged from the prior study Physical Exam (per Admitting): General Appearance: WD/WN, no apparent distress Head: normocephalic, atraumatic Eyes: normal inspection, PERRL, EOMI, sclerae normal ENT: normal ENT inspection, hearing grossly normal, pharynx normal Neck: supple, no adenopathy, thyroid normal, no carotid bruits, trachea midline, + JVD (mild) Respiratory/Chest: chest non-tender, lungs clear, no respiratory distress, no accessory muscle use, + wheezing (very faint wheeze on the left) Cardiovascular: no murmur, + JVD (mild), + irregularly irregular Abdomen/GI: normal bowel sounds, non tender, soft, no organomegaly Back: normal inspection, no CVA tenderness Extremities/Musculoskelatal: + pertinent finding ((+) bilateral lower leg edema, with erythema, no tenderness) Neurologic/Psych: newspaper stuffer II-XII nml as tested, no motor/sensory deficits, alert , normal mood/affect, normal reflexes, oriented x 3 Skin: normal color, warm/dry, no rash Lymphatic: no adenopathy Hospital Course 67 year old female with history of CHF Diastolic Type, Chronic Hypoxic Respiratory Failure, COPD, DM, HTN, presenting with shortness of breath. RIGHT SIDED CHF - diuresed well with Lasix 40mg IV q12h fluid restriction, 2g Na diet - Cardiology evaluated patient PRASHANT Pierre/Dr Carson - d/c plan: increase Lasix to 60mg BID emphasized fluid restriction, 2gNa diet, patient verbalized understanding CHRONIC HYPOXIC RESPIRATORY FAILURE NUVIA - on 2 liter via NC, CPAP at HS - patient to establish care with local Quarry Supervisor [employer] Dr. Jorgensen in [facility] HAN ReddyC for Dr. Jorgensen on 01/20/18 at 8:15am. A FIB - on Metoprolol and Coumadin INR 1.5 - discussed with coumadin clinic continue coumadin 6mg po daily until recheck INR on Tuesday coumadin clinic to call patient on Tuesday - Digoxin held for bradycardia, pause noted during admission Metoprolol decreased to 25mg BID DM 2 - resume usual regimen at home - outpatient follow up HTN - decreased Metoprolol Lisinopril increased - BP stable monitor MEDIASTINAL ADENOPATHY - seen on CT chest - monitor Disposition d/c home Cardiology follow-up with Dr. Johnathon Jackson Jr., DO, Cardiology, [facility], 01/09/2018, 10:30 AM. PCP next week Pulmonary ff up c/o Jessica Dejesus PA-C for Dr. Jorgensen on 01/20/18 at 8:15am. Total time spent on discharge = This includes examination of the patient, discharge planning, medication reconciliation, and communication with other providers. Discharge Instructions Discharge Instructions Date of Service Jan 06, 2018. Admission Reason for Admission: CHF Discharge Discharge Diagnosis / Problem: ACUTE EXACERBATION OF CONGESTIVE HEART FAILURE Discharge Goals Goal(s): Diagnostic testing, Therapeutic intervention Activity Recommendations Activity Limitations: as noted below (INCREASE ACTIVITY GRADUALLY TOLERATED , NO HEAVY EXERTION) Lifting Limitations: until after follow-up appointment Exercise/Sports Limitations: until after follow-up appointment . Instructions / Follow-Up Instructions / Follow-Up PLEASE REVIEW YOUR NEW MEDICATION LIST AND FOLLOW INSTRUCTIONS CAREFULLY. CALL PRIMARY CARE PHYSICIAN OR RETURN TO ER IMMEDIATELY IF WITH INCREASING LEG PAIN, SHORTNESS OF BREATH. LIMIT TOTAL DAILY FLUID INTAKE TO 1.5 LITER. LIMIT SALT INTAKE TO NOT MORE THAN 2G/DAY. FOLLOW UP WITH: Chief Controller Dr. Johnathon Jackson Jr., [facility] , 01/09/2018, 10:30 AM. Primary Care Physician Dr. De Oliveira on 01/12/18 at 11:05 am. Quarry Supervisor [employer] (Lung Specialist): Jessica Dejesus PA-C for Dr. Jorgensen on at 8:15am. [phone] [place] [address] in [place], [place] Call your Primary Care doctor if any of the following symptoms or problems start or get worse: * Shortness of breath or difficulty breathing * Wake up at night short of breath * Chest pain * Cough * Swelling of your hands, feet, or legs * More fatigued or tired with your normal activity * Palpitations - sudden fast heart beats WEIGHT * Weigh yourself every morning after using the bathroom. * Use the same scale. * Wear the same amount of clothing. * Write your weight down on a chart. * Call your Primary Care doctor if you gain more than 2-3 pounds in 1-2 days. MEDICATIONS * Use this discharge instruction sheet for medication instructions. * Take your medications at the time your doctor ordered. * Do not skip a dose of your medicines. * If you miss a dose of medicine, take it as soon as possible, but DO NOT DOUBLE A DOSE. * Read your medicine information when you get home. * Know all of the side effects of your medicine. If in doubt, ask your pharmacist * Call your Primary Care doctor's office if you have any side effects. * Be sure all of your doctors know what medicine and herbs you take (including cold, flu, and herbal medicine). Take the following with you to your follow-up doctor appointments: * Weight Chart * Medication List * List of questions Do not drink excessive alcohol, beer or wine. Current Hospital Diet Patient's current hospital diet: AHA Diet (Heart Healthy), Diabetes Type 2 Diet Discharge Diet Recommended Diet: AHA Diet (Heart Healthy), Diabetes Type 2 Diet Fluid Restriction: 1500 ml (6 cups) Pending Studies Studies pending at discharge: yes List of pending studies: Repeat Bloodwork (INR) on Tuesday during ff up Appt with Dr. Jackson
--- NOTE | 2018-01-06 15:39 | Discharge Instructions ---
Discharge Instructions Date of Service Jan 06, 2018. Admission Reason for Admission: CHF Discharge Discharge Diagnosis / Problem: ACUTE EXACERBATION OF CONGESTIVE HEART FAILURE Discharge Goals Goal(s): Diagnostic testing, Therapeutic intervention Activity Recommendations Activity Limitations: as noted below (INCREASE ACTIVITY GRADUALLY TOLERATED , NO HEAVY EXERTION) Lifting Limitations: until after follow-up appointment Exercise/Sports Limitations: until after follow-up appointment . Instructions / Follow-Up Instructions / Follow-Up PLEASE REVIEW YOUR NEW MEDICATION LIST AND FOLLOW INSTRUCTIONS CAREFULLY. CALL PRIMARY CARE PHYSICIAN OR RETURN TO ER IMMEDIATELY IF WITH INCREASING LEG PAIN, SHORTNESS OF BREATH. LIMIT TOTAL DAILY FLUID INTAKE TO 1.5 LITER. LIMIT SALT INTAKE TO NOT MORE THAN 2G/DAY. FOLLOW UP WITH: Tank Charger Dr. Johnathon Jackson Jr., [facility] , 01/09/2018, 10:30 AM. Primary Care Physician Dr. De Oliveira on 01/12/18 at 11:05 am. Drilling Superintendent (Lung Specialist): Jessica Dejesus PA-C for Dr. Jorgensen on at 8:15am. [phone] [place] [address] in [place], [place] Call your Primary Care doctor if any of the following symptoms or problems start or get worse: * Shortness of breath or difficulty breathing * Wake up at night short of breath * Chest pain * Cough * Swelling of your hands, feet, or legs * More fatigued or tired with your normal activity * Palpitations - sudden fast heart beats WEIGHT * Weigh yourself every morning after using the bathroom. * Use the same scale. * Wear the same amount of clothing. * Write your weight down on a chart. * Call your Primary Care doctor if you gain more than 2-3 pounds in 1-2 days. MEDICATIONS * Use this discharge instruction sheet for medication instructions. * Take your medications at the time your doctor ordered. * Do not skip a dose of your medicines. * If you miss a dose of medicine, take it as soon as possible, but DO NOT DOUBLE A DOSE. * Read your medicine information when you get home. * Know all of the side effects of your medicine. If in doubt, ask your pharmacist * Call your Primary Care doctor's office if you have any side effects. * Be sure all of your doctors know what medicine and herbs you take (including cold, flu, and herbal medicine). Take the following with you to your follow-up doctor appointments: * Weight Chart * Medication List * List of questions Do not drink excessive alcohol, beer or wine. Current Hospital Diet Patient's current hospital diet: AHA Diet (Heart Healthy), Diabetes Type 2 Diet Discharge Diet Recommended Diet: AHA Diet (Heart Healthy), Diabetes Type 2 Diet Fluid Restriction: 1500 ml (6 cups) Pending Studies Studies pending at discharge: yes List of pending studies: Repeat Bloodwork (INR) on Tuesday during ff up Appt with Dr. Jackson Laboratory Results Hemoglobin A1c Test 12/23/17 03:44 Range/Units Estimated Average Glucose 154 mg/dl Hemoglobin A1c 7.0 H 4.5-5.6 % Lipid Panel Test 12/23/17 03:44 Range/Units Triglycerides Level 85 0-150 mg/dl Cholesterol Level 56 0-200 mg/dl HDL Cholesterol 19 mg/dl Cholesterol/HDL Ratio 2.9 LDL Cholesterol, Calculated 20 mg/dl Medical Emergencies . Who to Call and When: Call 911 or go to the Emergency Room if: * If at any time you feel your situation is an emergency * You have tightness or pain in your chest that does not go away with rest or Nitroglycerin * You are very short of breath even with rest . Non-Emergent Contact Non-Emergency issues call your: Primary Care Provider, Tank Charger Call Non-Emergent contact if: you have a fever, you have any medication questions . . "Provider Documentation" section prepared by Juanito Price. . VTE Core Measure Inpt VTE Proph given/why not?: Unfractionated heparin SQ, Warfarin (Coumadin)
[2018-01-06 15:42] VITALS: BP 144/67; PULSE 76; TEMP 36.4; O2SAT 92
[2018-01-06] MEDS ORDERED: WARFARIN SOD 6 MG TAB PO SCH (16:00)
== END 2018-01-06 16:12 | disposition home health service (06) | DRG 292 ==
LOC: EDBD 12:08 → C.EDA 12:09 → C.MED 16:17 → ENRESERV 17:06
PROVIDERS: ADMIT Internal Medicine; ATTEND Internal Medicine
DX: I11.0 Hypertensive heart disease with heart failure (principal); J96.11 Chronic respiratory failure with hypoxia; I24.9 Acute ischemic heart disease, unspecified; Z68.42 Body mass index [BMI] 45.0-49.9, adult; I50.810 Right heart failure, unspecified; I50.30 Unspecified diastolic (congestive) heart failure; J44.9 Chronic obstructive pulmonary disease, unspecified; E11.9 Type 2 diabetes mellitus without complications; E78.5 Hyperlipidemia, unspecified; E66.01 Morbid (severe) obesity due to excess calories; E55.9 Vitamin D deficiency, unspecified; M35.3 Polymyalgia rheumatica; Z96.659 Presence of unspecified artificial knee joint; Z82.49 Family history of ischemic heart disease and other diseases of the circulatory system; Z83.3 Family history of diabetes mellitus; Z79.84 Long term (current) use of oral hypoglycemic drugs; Z79.4 Long term (current) use of insulin; Z88.0 Allergy status to penicillin; G47.33 Obstructive sleep apnea (adult) (pediatric); I48.2 Chronic atrial fibrillation; R59.0 Localized enlarged lymph nodes; Z79.52 Long term (current) use of systemic steroids; Z88.8 Allergy status to other drugs, medicaments and biological substances; Z99.81 Dependence on supplemental oxygen

== ENCOUNTER 2018-03-23 19:02 | Inpatient (IN) | payer OTHER ==
[~2018-03-23] VITALS: Ht 154.9 cm; Wt 110.7 kg
[~2018-03-23 19:02] MED LIST changes: -ASPEC81 PO; +ASPI-320 PO; +CMD6 PO; +CYAN100020 PO; -DIGO0.2519 PO; -FURO80TA63 PO; -LISI20TA3 PO; +LPT40 PO; +LSN20 PO; +LSX20 PO; -METO-551 PO; +METO50TA16 PO; -SIMV80TA2 PO; +TRAM-10 PO; -WARF-285 PO
--- NOTE | 2018-03-23 19:30 | EMERGENCY ROOM VISIT NOTE ---
History Report prepared by Thais: Berry Michelle Under the Supervision of: Dr. Luís Acosta M.D. First contact with patient: 19:24 Chief Complaint: SHORTNESS OF BREATH Stated Complaint: SOB Nursing Triage Summary: Patient arrived via ALS from home. Patient c/o SOB that increases with exertion that is worse with exertion for the last 2-3 days. Patient c/o increased swelling to RLE and pain to right outter thigh. Patient denies CP, N/V/D. Hx of afib and diabetes. Patients SAT 97% on RA. Wears 2L O2. Patient takes lasix 2x daily, unknown amount. History of Present Illness The patient is a 67 year old female who presents to the Emergency Room with complaints of resolved, moderate, shortness of breath that occurred prior to arrival. The patient states she experienced an episode of severe shortness of breath that resolved when she relaxed. She reports she could not breathe in very well. The patient notes nothing was done in the ambulance. She states she is also experiencing faint tingling around her chest. The patient reports she ate more salty foods last week, and she is experiencing swelling in her legs. She notes contacted her PCP and was told to come to the ED if her symptoms worsened. 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 A total of 10 systems reviewed and were otherwise negative. Past Medical & Surgical Medical Problems: (1) Anemia (2) CHF (congestive heart failure) (3) COPD (chronic obstructive pulmonary disease) (4) Diabetes mellitus, type II (5) Dyslipidemia (6) HTN (hypertension) (7) Hypocalcemia (8) Hypomagnesemia (9) Lumbar radiculopathy (10) Polymyalgia rheumatica Surgical Problems: (1) History of hysterectomy (2) History of total knee replacement Family History Colon cancer Coronary artery disease FATHER ( OF NE AT AGE 71 ) BROTHER SISTER Diabetes mellitus MOTHER SISTER Social History Smoking Status: Current Some Day Smoker Housing Status: lives alone Current/Historical Medications Scheduled Allopurinol (Allopurinol), 300 MG PO DAILY Aspirin (Aspirin EC Low Dose), 81 MG PO DAILY Atorvastatin (Lipitor), 80 MG PO QAM Cholecalciferol (Vitamin D3), 2,000 UNITS PO DAILY Cyanocobalamin (Vitamin B12), 1,000 MCG PO DAILY Furosemide (Furosemide), 60 MG PO BID17 Gabapentin (Neurontin), 300 MG PO HS Insulin Glargine (Lantus Solostar), 38 SC QAM Lisinopril (Lisinopril), 20 MG PO BID Magnesium Oxide (Mag-Ox), 400 MG PO BID Metformin Hcl (Glucophage), 1,000 MG PO BID Metoprolol Tartrate (Lopressor) (Lopressor), 25 MG PO BID Nitroglycerin (Nitrostat), 0.4 MG UT PRN Repaglinide (Repaglinide), 4 MG PO AC Warfarin Sod (Jantoven), 6 MG PO DAILY Scheduled PRN Tramadol (Ultram), 50 MG PO Q6 PRN for Pain Allergies Coded Allergies: Penicillins (Verified Allergy, Mild, 03/23/18) Rofecoxib (Verified Allergy, Unknown, 03/23/18) Sulindac (Verified Allergy, Unknown, 03/23/18) Physical Exam Vital Signs Date Time Temp Pulse Resp B/P (MAP) Pulse Ox O2 Delivery O2 Flow Rate FiO2 03/23/18 22:35 95 18 143/89 95 Room Air 03/23/18 21:00 100 18 120/65 96 Nasal Cannula 2.0 03/23/18 20:44 113 03/23/18 19:36 96 Nasal Cannula 2.0 03/23/18 19:36 96 Nasal Cannula 2.0 03/23/18 19:05 96 Nasal Cannula 2.0 03/23/18 19:05 36.8 112 22 120/76 96 Nasal Cannula 2.0 Physical Exam GENERAL: Awake, alert, well-appearing, in no acute distress HENT: Normocephalic, atraumatic. Oropharynx unremarkable. EYES: Normal conjunctiva. Sclera non-icteric. NECK: Supple. No nuchal rigidity. FROM. No JVD. RESPIRATORY: Clear to auscultation. CARDIAC: Regular rate, normal rhythm. Extremities warm and well perfused. Pulses equal. ABDOMEN: Soft, non-distended. No tenderness to palpation. No rebound or guarding. No masses. RECTAL: Deferred. MUSCULOSKELETAL: Chest examination reveals no tenderness. The back is symmetrical on inspection without obvious abnormality. There is no CVA tenderness to palpation. No joint edema. LOWER EXTREMITIES: Calves are equal size bilaterally and non-tender. No edema. Chronic venous stasis changes bilaterally to the legs. NEURO: Normal sensorium. No sensory or motor deficits noted. SKIN: No rash or jaundice noted. Medical Decision & Procedures ER Provider Diagnostic Interpretation: Radiology results as stated below per my review and radiologist interpretation: CHEST ONE VIEW PORTABLE CLINICAL HISTORY: Pt c/o SOB dyspnea COMPARISON STUDY: 01/03/2018 FINDINGS: Moderate cardiomegaly. Moderate prominence of the pulmonary vasculature. Diaphragms smooth. Costophrenic angles are sharp. IMPRESSION: Mild congestive heart failure The above report was generated using voice recognition software. It may contain grammatical, syntax or spelling errors. Electronically signed by: Vinny Fernando M.D. 03/23/2018 7:47 PM Dictated Date/Time: 03/23/2018 7:47 PM VENOUS DOPPLER LWR EXT BILA HISTORY: Pain. Edema. Pt c/o B/l extrmity pain COMPARISON STUDY: None. FINDINGS: There is normal compressibility, flow, and augmentation within the bilateral lower extremity deep venous systems. IMPRESSION: No DVT within the right or left lower extremity. The above report was generated using voice recognition software. It may contain grammatical, syntax or spelling errors. Electronically signed by: Vinny Fernando M.D. 03/23/2018 9:56 PM Dictated Date/Time: 03/23/2018 9:55 PM Laboratory Results 03/23/18 19:49 Red Blood Count 4.15, Mean Corpuscular Volume 94.5, Mean Corpuscular Hemoglobin 29.6, Mean Corpuscular Hemoglobin Concent 31.4, Mean Platelet Volume 9.6, Neutrophils (%) (Auto) 70.7, Lymphocytes (%) (Auto) 22.9, Monocytes (%) (Auto) 5.0, Eosinophils (%) (Auto) 0.9, Basophils (%) (Auto) 0.3, Neutrophils # (Auto) 4.57, Lymphocytes # (Auto) 1.48, Monocytes # (Auto) 0.32, Eosinophils # (Auto) 0.06, Basophils # (Auto) 0.02 4/26/18 19:49 Test 03/23/18 19:20 03/23/18 19:49 03/23/18 19:57 Urine Color YELLOW Urine Appearance CLEAR (CLEAR) Urine pH 7.0 (4.5-7.5) Urine Specific [place] 1.009 (1.000-1.030) Urine Protein NEG (NEG) Urine Glucose (UA) NEG (NEG) Urine Ketones NEG (NEG) Urine Occult Blood NEG (NEG) Urine Nitrite NEG (NEG) Urine Bilirubin NEG (NEG) Urine Urobilinogen NEG (NEG) Urine Leukocyte Esterase NEG (NEG) White Blood Count 6.46 K/uL (4.8-10.8) Red Blood Count 4.15 M/uL (4.2-5.4) Hemoglobin 12.3 g/dL (12.0-16.0) Hematocrit 39.2 % (37-47) Mean Corpuscular Volume 94.5 fL (80-100) Mean Corpuscular Hemoglobin 29.6 pg (25-34) Mean Corpuscular Hemoglobin Concent 31.4 g/dl (32-36) Platelet Count 164 K/uL (130-400) Mean Platelet Volume 9.6 fL (7.4-10.4) Neutrophils (%) (Auto) 70.7 % Lymphocytes (%) (Auto) 22.9 % Monocytes (%) (Auto) 5.0 % Eosinophils (%) (Auto) 0.9 % Basophils (%) (Auto) 0.3 % Neutrophils # (Auto) 4.57 K/uL (1.4-6.5) Lymphocytes # (Auto) 1.48 K/uL (1.2-3.4) Monocytes # (Auto) 0.32 K/uL (0.11-0.59) Eosinophils # (Auto) 0.06 K/uL (0-0.5) Basophils # (Auto) 0.02 K/uL (0-0.2) RDW Standard Deviation 59.3 fL (36.4-46.3) RDW Coefficient of Variation 17.3 % (11.5-14.5) Immature Granulocyte % (Auto) 0.2 % Immature Granulocyte # (Auto) 0.01 K/uL (0.00-0.02) Prothrombin Time 18.7 SECONDS (9.0-12.0) Prothromb Time International Ratio 1.8 (0.9-1.1) Anion Gap 4.0 mmol/L (3-11) Est Creatinine Clear Calc Drug Dose 46.4 ml/min Estimated GFR () 46.6 Estimated GFR (Non- 40.2 BUN/Creatinine Ratio 37.5 (10-20) Calcium Level 10.0 mg/dl (8.5-10.1) Total Bilirubin 0.5 mg/dl (0.2-1) Aspartate Amino Transf (AST/SGOT) 9 U/L (15-37) Alanine Aminotransferase (ALT/SGPT) 19 U/L (12-78) Alkaline Phosphatase 71 U/L (45-117) Total Creatine Kinase 36 U/L (26-192) Creatine Kinase MB 0.6 ng/ml (0.5-3.6) Creatine Kinase MB Ratio 1.7 (0-3.0) Troponin I < 0.015 ng/ml (0-0.045) Pro-B-Type Natriuretic Peptide 2878 pg/ml (0-900) Total Protein 7.6 gm/dl (6.4-8.2) Albumin 3.9 gm/dl (3.4-5.0) Globulin 3.7 gm/dl (2.5-4.0) Albumin/Globulin Ratio 1.1 (0.9-2) Influenza Type A Antigen Neg for Influ A (NEG) Influenza Type B Antigen Neg for Influ B (NEG) Labs reviewed by ED physician. Medications Administered Medications (Trade) Dose Ordered Sig/Amara Route Start Time Stop Time Status Last Admin Dose Admin Furosemide (Lasix Inj) 40 mg NOW STAT IV 03/23/18 19:50 03/23/18 19:51 DC 03/23/18 20:26 40 MG Hydromorphone HCl (Dilaudid Inj) 0.5 mg NOW STAT IV 03/23/18 20:19 03/23/18 20:21 DC 03/23/18 20:27 0.5 MG Acetaminophen (Tylenol Tab) 1,000 mg NOW STAT PO 03/23/18 20:19 03/23/18 20:21 DC 03/23/18 20:27 1,000 MG Sodium Chloride 500 ml @ 999 mls/hr Q31M STAT IV 03/23/18 21:13 03/23/18 21:43 DC 03/23/18 21:13 999 MLS/HR Warfarin Sodium (Coumadin Tab) 6 mg NOW ONCE PO 03/23/18 23:15 03/24/18 00:34 DC 03/24/18 01:15 6 MG Metoprolol Tartrate (Lopressor Tab) 25 mg NOW ONCE PO 03/23/18 23:15 03/24/18 00:34 DC 03/24/18 01:16 25 MG ECG Per My Interpretation Indication: SOB/dyspnea Rate (beats per minute): 107 Rhythm: atrial fibrillation (with RVR) Findings: other (No ST elevation or depression) Comparison ECG Date: 01/03/18 Change: no significant change ED Course 1925: Past medical records reviewed. The patient was evaluated in room A02. A complete history and physical examination was performed. 1950: Ordered Furosemide 40mg IV 2019: Ordered Acetaminophen 1000mg PO, Hydromorphone HCl 0.5mg IV 3: Ordered Sodium Chloride 500 ml @ 999 mls/hr IV 4: I reevaluated the patient. She is feeling better. I discussed the results with the niece and the patient. The niece is request the patient be evaluated by the hospitalist. I discussed the treatment plan with. They both verbalized agreement. 2238: I discussed the patient's case with Dr. Gracia, [facility] Hospitalist. The patient will be evaluated for further management and care. Medical Decision Etiologies such as infections, reactive airway disease, pneumonia, pneumothorax , COPD, CHF, cardiac ischemia, pulmonary embolism, musculoskeletal, gastrointestinal, as well as others were entertained. This is a 67-year-old female presents emergency department complaining of shortness of breath. The patient is normally on 2 L of oxygen at home. She appears to have mild congestive heart failure on chest x-ray. For this reason patient was given 40 of Lasix. Her creatinine is slightly bumped and I suspect some element of dehydration. The patient is complaining of leg cramps as well however her potassium is normal. She was sent for an ultrasound bilaterally of the legs which does not show any acute process. I gave the patient the option of being discharged home however she does not feel she is well enough to do it. For this reason I did discuss the case with case management as well as the hospitalist service who agreed to admit the patient. Medication Reconcilliation Current Medication List: was personally reviewed by me Blood Pressure Screening Patient's blood pressure: Normal blood pressure Blood pressure disposition: Did not require urgent referral Consults Time Called: 2225 Consulting Physician: [facility] Hospital[facility] Returned Call: [phone] I discussed the patient's case with [facility] Hospitalist. The patient will be evaluated for further management and care. Impression Primary Impression: CHF exacerbation Scribe Attestation The scribe's documentation has been prepared under my direction and personally reviewed by me in its entirety. I confirm that the note above accurately reflects all work, treatment, procedures, and medical decision making performed by me. Departure Information Dispostion Being Evaluated By Hospitalist Prescriptions Warfarin Sod (Jantoven) 3 Mg Tab 6 MG PO DAILY, #20 TAB Prov: Shaw Gracia MD 03/23/18 Referrals Kevin De Oliveira M.D. (MEDICAL) (PCP) Patient Instructions My [facility] Problem Qualifiers Primary Impression: CHF exacerbation Heart failure type: unspecified Qualified Codes: I50.9 - Heart failure, unspecified
--- NOTE | 2018-03-23 19:49 | DIAGNOSTIC IMAGING REPORT ---
CHEST ONE VIEW PORTABLE CLINICAL HISTORY: Pt c/o SOB dyspnea COMPARISON STUDY: 01/03/2018 FINDINGS: Moderate cardiomegaly. Moderate prominence of the pulmonary vasculature. Diaphragms smooth. Costophrenic angles are sharp. IMPRESSION: Mild congestive heart failure The above report was generated using voice recognition software. It may contain grammatical, syntax or spelling errors. Electronically signed by: Vinny Fernando M.D. 03/23/2018 7:47 PM Dictated Date/Time: 03/23/2018 7:47 PM
[2018-03-23] MEDS ORDERED: FUROSEMIDE 40 MG/4 ML VIAL IV STA (19:50)
[2018-03-23 20:05] LABS: BASO % 0.3 %; BASO ABS # 0.02 K/uL (0-0.2); EOS % 0.9 %; EOS ABS # 0.06 K/uL (0-0.5); HEMATOCRIT 39.2 % (37-47); HEMOGLOBIN 12.3 g/dL (12.0-16.0); IG# 0.01 K/uL (0.00-0.02); LYMPH % 22.9 %; LYMPH ABS # 1.48 K/uL (1.2-3.4); MEAN CELL VOLUME 94.5 fL (80-100); MEAN CORPUSCULAR HEMOGLOBIN 29.6 pg (25-34); MEAN CORPUSCULAR HGB CONC 31.4 g/dl (32-36); MEAN PLATELET VOLUME 9.6 fL (7.4-10.4); MONO ABS # 0.32 K/uL (0.11-0.59); NEUT % 70.7 %; NEUT ABS # 4.57 K/uL (1.4-6.5); PLATELET COUNT 164 K/uL (130-400); RED CELL DISTRIBUTION WIDTH CV 17.3 % (11.5-14.5); RED CELL DISTRIBUTION WIDTH SD 59.3 fL (36.4-46.3); WHITE BLOOD COUNT 6.46 K/uL (4.8-10.8)
[2018-03-23] MEDS ORDERED: ACETAMINOPHEN 500 MG TAB PO STA (20:19)
[2018-03-23] MEDS ORDERED: HYDROmorphone INJ 0.5 MG/0.5 ML SYR IV STA (20:19)
[2018-03-23 20:27] LABS: ALBUMIN 3.9 gm/dl (3.4-5.0); ALT/SGPT 19 U/L (12-78); AST/SGOT 9 U/L (15-37); BLOOD UREA NITROGEN 51 mg/dl (7-18); CARBON DIOXIDE 33 mmol/L (21-32); CREATININE 1.35 mg/dl (0.60-1.20); GLUCOSE 65 mg/dl (70-99); POTASSIUM 4.1 mmol/L (3.5-5.1); SODIUM 142 mmol/L (136-145)
[2018-03-23 20:32] LABS: ALKALINE PHOSPHATASE 71 U/L (45-117); CKMB 0.6 ng/ml (0.5-3.6); TOTAL PROTEIN 7.6 gm/dl (6.4-8.2)
[2018-03-23 20:34] LABS: INFLUENZA B ANTIGEN Neg for Influ B (NEG)
[2018-03-23] MEDS ORDERED: INSDGIPEN SC (20:50)
[2018-03-23] MEDS ORDERED: WARF3TAB6 PO ×3 (20:57→23:23)
[2018-03-23] MEDS ORDERED: SODIUM CHLORIDE 0.9% 500ML 500 ML IV STA (21:13)
[2018-03-23 21:19] LABS: INR 1.8 (0.9-1.1)
--- NOTE | 2018-03-23 21:57 | DIAGNOSTIC IMAGING REPORT ---
VENOUS DOPPLER LWR EXT BILA HISTORY: Pain. Edema. Pt c/o B/l extrmity pain COMPARISON STUDY: None. FINDINGS: There is normal compressibility, flow, and augmentation within the bilateral lower extremity deep venous systems. IMPRESSION: No DVT within the right or left lower extremity. The above report was generated using voice recognition software. It may contain grammatical, syntax or spelling errors. Electronically signed by: Vinny Fernando M.D. 03/23/2018 9:56 PM Dictated Date/Time: 03/23/2018 9:55 PM
[2018-03-23] MEDS ORDERED: TRAMADOL HCL 50 MG TAB PO PRN (23:15)
[2018-03-23] MEDS ORDERED: ALUMINUM/MAGNESIUM/SIMETH (MAALOX MAX) 30 ML UDC PO PRN (23:15)
[2018-03-23] MEDS ORDERED: NITROGLYCERIN 0.4 MG SL PER TAB CHARGE SL PRN (23:15)
[2018-03-23] MEDS ORDERED: WARFARIN SOD 6 MG TAB PO ONE (23:15)
[2018-03-23] MEDS ORDERED: ACETAMINOPHEN 325 MG TAB PO PRN (23:15)
[2018-03-23] MEDS ORDERED: NITROGLYCERIN 0.4 MG SL PER TAB CHARGE UT SCH (23:15)
[2018-03-23] MEDS ORDERED: POLYETHYLENE (MIRALAX) 17 GM PACK PO PRN (23:15)
[2018-03-23] MEDS ORDERED: METOPROLOL TARTRATE 25 MG TAB PO ONE (23:15)
[2018-03-23] MEDS ORDERED: ONDANSETRON INJ 2 MG/ML 2 ML VIAL IV PRN (23:15)
[2018-03-24] VITALS (8 sets, daily range): BP systolic 83–161; BP diastolic 7–94; PULSE 86–100; TEMP 36.3–36.8; O2SAT 92–98; Ht 154.9 cm; Wt 110.7 kg
[2018-03-24] MEDS ORDERED: GLUCOSE 40% GEL 15 GM TUBE PO PRN (00:45)
[2018-03-24] MEDS ORDERED: GLUCAGON FOR INJ 1 MG VIAL SQ PRN (00:45)
[2018-03-24] MEDS ORDERED: DEXTROSE 50% 50 ML SYR IV PRN (00:45)
[2018-03-24] MEDS ORDERED: GLUCOSE 10 TABS/TUBE PO PRN (00:45)
--- NOTE | 2018-03-24 01:11 | HISTORY & PHYSICAL EXAMINATION ---
DATE OF ADMISSION: 03/23/2018 CHIEF COMPLAINT: Shortness of breath. HISTORY OF PRESENT ILLNESS: A 67-year-old female with past medical history significant for CAD, GERD, type 2 diabetes, gout, hypertension, obstructive sleep apnea on CPAP, hyperlipidemia, history of chronic atrial fibrillation, chronic right-sided heart failure, chronic hypoxemic respiratory failure, presents with shortness of breath. Patient states since last 2-3 days, she is getting more short of breath than is usual and she does agree that she was noncompliant with her salt restriction. [facility] She also states her lower extremity edema might have increased a little bit. She is taking her meds daily. Currently in the ER, with the IV Lasix she is feeling better. Denies any orthopnea or paroxysmal nocturnal dyspnea. Denies any dizziness or headaches. She was a little blurred vision in the morning. No earache, no runny nose, no sore throat, no difficulty swallowing. Appetite is okay. No cough, no fever, no chills, no nausea, no vomiting, no abdominal pain. Normal bowel and bladder movements. Ambulates with help of cane. She lives alone. No skin rash. Currently, resting comfortably and hemodynamically stable. ALLERGIES: PENICILLIN. PAST MEDICAL HISTORY: As mentioned above. PAST SURGICAL HISTORY: Hysterectomy, total knee replacement. FAMILY HISTORY: Significant for colon cancer, coronary artery disease. Father of [place] at age of 71. Brother and sister have CAD. Mother and sister have diabetes. SOCIAL HISTORY: Smokes every day. No drug use. , lives alone. REVIEW OF SYSTEMS: As per HPI. Rest of review of systems negative. HOME MEDICATIONS: Allopurinol 300 mg p.o. daily, enteric coated aspirin 81 mg p.o. daily, vitamin D 2000 units p.o. daily, vitamin B12 1000 mcg p.o. daily, Lasix 60 mg p.o. b.i.d., gabapentin 300 mg p.o. at bedtime, Lantus 30 units q.a.m., lisinopril 20 mg p.o. b.i.d., magnesium 400 mg p.o. b.i.d., metformin 1000 mg p.o. b.i.d., Lopressor 25 mg p.o. b.i.d., nitroglycerin 0.4 mg sublingual p.r.n., repaglinide 400 mg p.o. a.c., Lipitor 80 mg p.o. daily, Coumadin 6 mg p.o. daily, tramadol 50 mg p.o. q. 6 hours p.r.n. PHYSICAL EXAMINATION: GENERAL: Patient is obese, not in distress. VITAL SIGNS: Temperature 36.8, pulse 95, respiratory rate 18, blood pressure 143/80, and oxygen 95% on 2 liters. HEENT: No pallor, no icterus. Pupils equal, round, and reactive to light. NECK: No JVD, no neck masses, no carotid bruits. CARDIOVASCULAR: S1, S2 heard, regular rate and rhythm, no murmur, no gallop. RESPIRATORY SYSTEM: Normal AP diameter. No accessory muscle use. Mild bibasilar crackles. No wheezing. ABDOMEN: Soft, bowel sounds present. Nontender. No distention. CENTRAL NERVOUS SYSTEM: Cranial nerves II through XII grossly intact. Nonfocal. EXTREMITIES: Bilateral lower extremities, +2 pedal edema present. Mild erythema. No tenderness. LABORATORY DATA: Sodium 142, potassium 4.1, chloride 105, bicarb 33, BUN 51, creatinine 1.3, serum glucose 65, calcium 10, total bilirubin 0.5, AST 9, ALT 19, alkaline phosphatase 71, total creatinine kinase 36, CK-MB 0.6, troponin I less than 0.015. BNP 2878. WBC count 6.4, hemoglobin 12.3, hematocrit 39.3, platelets 164. PT 18.7, INR 1.8. Urinalysis negative. Influenza negative. Chest x-ray mild CHF. Venous Doppler study, no DVT. EKG: Afib with rate of 107, no acute ST changes seen. ASSESSMENT AND PLAN: This is a 67-year-old female who presents with shortness of breath. 1. Shortness of breath with [id number] right-sided heart failure, noncompliant with salt restrictions lately. At home she was doing fine on Lasix 60 mg p.o. b.i.d. which we will hold for now and place on IV Lasix 40 b.i.d. Daily weights, I's and O's, and monitor in tele floor. Cardiology consult in the a.m. for further recommendations. 2. Obstructive sleep apnea. Continue CPAP. 3. Diabetes. Continue Lantus. ISS. Hold p.o. medications .Will follow HBA1C levels. 4. Atrial fibrillation, on metoprolol and Coumadin. INR is 1.8. Patient is on Coumadin 6 mg daily. We will follow the INR. 5. Hypertension, on lisinopril and metoprolol. We will monitor the blood pressure. 6. History of mediastinal adenopathy and COPD. Supposed to follow with pulmonary. 7. DVT prophylaxis, on Coumadin. DISPOSITION: Admit to tele floor. PT, OT prior to discharge. Social service to help with discharge planning. Level 1 full code. MTDD
[2018-03-24] MEDS: GABAPENTIN 300 MG CAP PO SCH ×2 (01:16→20:56)
[2018-03-24 07:14] LABS: BASO % 0.5 %; BASO ABS # 0.03 K/uL (0-0.2); EOS % 1.4 %; EOS ABS # 0.09 K/uL (0-0.5); HEMATOCRIT 36.7 % (37-47); HEMOGLOBIN 11.6 g/dL (12.0-16.0); IG# 0.01 K/uL (0.00-0.02); LYMPH % 27.2 %; MEAN CELL VOLUME 94.3 fL (80-100); MEAN CORPUSCULAR HEMOGLOBIN 29.8 pg (25-34); MEAN CORPUSCULAR HGB CONC 31.6 g/dl (32-36); MEAN PLATELET VOLUME 9.2 fL (7.4-10.4); MONO % 4.5 %; MONO ABS # 0.28 K/uL (0.11-0.59); NEUT % 66.2 %; NEUT ABS # 4.13 K/uL (1.4-6.5); PLATELET COUNT 150 K/uL (130-400); RED CELL DISTRIBUTION WIDTH CV 17.2 % (11.5-14.5); RED CELL DISTRIBUTION WIDTH SD 58.6 fL (36.4-46.3); WHITE BLOOD COUNT 6.24 K/uL (4.8-10.8)
[2018-03-24 07:28] LABS: INR 1.7 (0.9-1.1)
[2018-03-24 07:54] LABS: CALCIUM 9.9 mg/dl (8.5-10.1); CREATININE 1.23 mg/dl (0.60-1.20); POTASSIUM 4.2 mmol/L (3.5-5.1)
[2018-03-24] MEDS: CHOLECALCIFEROL 1000 INTER.UNIT TAB PO SCH (08:22)
[2018-03-24] MEDS: ALLOPURINOL 300 MG TAB PO SCH (08:22)
[2018-03-24] MEDS: ASPIRIN 81 MG ECTAB PO SCH (08:22)
[2018-03-24] MEDS: METOPROLOL TARTRATE 25 MG TAB PO SCH ×2 (08:23→20:56)
[2018-03-24] MEDS: MAGNESIUM OXIDE 400 MG TAB PO SCH ×2 (08:23→20:57)
[2018-03-24] MEDS: LISINOPRIL 20 MG TAB PO SCH ×2 (08:23→20:56)
[2018-03-24] MEDS: ATORVASTATIN 40 MG TAB PO SCH (08:23)
[2018-03-24] MEDS: CYANOCOBALAMIN 500 MCG TAB (VIT B-12) PO SCH (08:23)
[2018-03-24] MEDS: FUROSEMIDE INJ 40 MG in SYRINGE 0 ML IV SCH ×2 (08:24→17:05)
[2018-03-24] MEDS: INSULIN ASPART 100 UNITS/ML 3 ML PEN SC SCH ×4 (08:28→20:58)
[2018-03-24] MEDS: INSULIN GLARGINE SOLOSTAR 100 UNITS/ML 3 ML PEN SC SCH (08:28)
[2018-03-24 09:32] LABS: HEMOGLOBIN A1C 8.9 % (4.5-5.6)
[2018-03-24] MEDS ORDERED: WARFARIN SOD 10 MG TAB PO ONE (14:30)
--- NOTE | 2018-03-24 14:44 | Cardiology Consultation ---
Cardiology Consultation Date of Service Mar 24, 2018. (Aurelia Hilario, SEGUNDO) Cardiology Consultation Requesting Provider: Dr. Gracia Attending Commercial Insulator: Dr. Teran History of Present Illness Ms. Kumar is a 67 year old female Who has a history of severe oxygen-dependent COPD, obesity cor pulmonale, and chronic right-sided heart failure. She follows with Dr. Jackson as an outpatient. Other history includes chronic atrial fibrillation on chronic Coumadin for anticoagulation. She has been hospitalized on several occasions earlier this year for acute on chronic right-sided heart failure treated with IV diuretics. Resting echocardiography on 12/23/2017 revealed normal LV chamber size, wall motion, mild concentric LVH, normal LV systolic function. EF 60-65%. Moderate biatrial enlargement observed. No significant valvular pathology noted. Patient presented to [facility] yesterday with concerns regarding worsening shortness of breath x1 week. She notes that significant dietary indiscretion having eaten several fast food meals, fried chicken, and subs. She reports 12 lb weight gain in approximately 10 days. She noted associated worsening lower extremity edema, abdominal bloating, shortness of breath. No recent chest pain. In ER, chest x-ray consistent with pulmonary congestion, BNP elevated. Cardiac enzymes negative. she was started on IV furosemide with improvement in her symptoms. At time of consult, she continues to note increased SOB with conversation, not yet at baseline. Still has significant LE edema, but improved from admission, per patient report. She denies chest pain. No dizziness. Abdominal bloating improved. No orthopnea. Wears O2 24/7. Review of systems: See HPI for pertinent positives. All other 10 point review of systems is negative. 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 tonsillectomy Family History Colon cancer Coronary artery disease FATHER ( OF [place] AT AGE 71 ) BROTHER SISTER Diabetes mellitus MOTHER SISTER Mother at 47 from diabetic complications. Father and multiple siblings with CAD. Colon cancer Coronary artery disease FATHER ( OF [place] AT AGE 71 ) BROTHER SISTER Diabetes mellitus MOTHER SISTER Social History Smoker. No alcohol. No illegal drug use. in 2002. 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 Lives alone. Smoking Status: Current Every Day Smoker Review Of Systems General: No fevers or chills. HEENT: No headache. Cardiovascular: See above. Pulmonary: See above. Gastrointestinal: Denies nausea, vomiting, or diarrhea. No melena or hematochezia. Skin: + Rash, skin folds. Musculoskeletal: Back pain. Knee pain. Neurological: Denies history of TIA, CVA, or seizures Ambulation is via a cane. Complete review of systems is as stated above, negative, or noncontributory. Allergies Coded Allergies: Penicillins (Verified Allergy, Mild, 01/03/18) Rofecoxib (Verified Allergy, Unknown, 01/03/18) Sulindac (Verified Allergy, Unknown, 01/03/18) Reported Home Medications Medications Dose Route/Sig Max Daily Dose Days Date Category Dose Instructions Jantoven (Warfarin Sodium) 3 Mg Tab 6 Mg PO DAILY 03/23/18 Rx Lantus Solostar (Insulin Glargine) 100 Unit/Ml Inj 38 SC QAM 03/23/18 Reported Furosemide 20 Mg Tab 60 Mg PO BID17 30 01/06/18 Rx Lopressor (Metoprolol Tartrate) 50 Mg Tab 25 Mg PO BID 30 01/06/18 Rx Lisinopril 20 Mg Tab 20 Mg PO BID 30 01/06/18 Rx Lipitor (Atorvastatin Calcium) 40 Mg Tab 80 Mg PO QAM 30 01/06/18 Rx Ultram (Tramadol HCl) 50 Mg Tab 50 Mg PO Q6 PRN 01/03/18 Reported Vitamin B12 (Cyanocobalamin) 1,000 Mcg Tab 1,000 Mcg PO DAILY 01/03/18 Reported Vitamin D3 (Cholecalciferol) 1,000 Unit Tab 2,000 Units PO DAILY 12/22/17 Reported Allopurinol 300 Mg Tab 300 Mg PO DAILY 12/22/17 Reported Mag-Ox (Magnesium Oxide) 400 Mg Tab 400 Mg PO BID 04/27/17 Reported Repaglinide 2 Mg Tab 4 Mg PO AC 04/27/17 Reported Aspirin EC Low Dose (Aspirin) 81 Mg Ectab 81 Mg PO DAILY 04/27/17 Reported Glucophage (Metformin Hcl) 500 Mg Tab 1,000 Mg PO BID 06/09/14 Reported 2 TABLETS WITH BREAKFAST AND HS Neurontin (Gabapentin) 100 Mg Cap 300 Mg PO HS 11/26/13 Reported Nitrostat (Nitroglycerin) 0.4 Mg Tab 0.4 Mg UT PRN 03/24/11 Reported NEEDED FOR CHEST PAIN ; ONE TABLET UNDER THE TONGUE EVERY 5 MINUTES, UP TO 3 DOSES. Physical Exam Last 8 Hrs Date Time Temp Pulse Resp B/P (MAP) Pulse Ox O2 Delivery O2 Flow Rate FiO2 03/24/18 07:38 36.8 90 22 114/83 (93) 97 Nasal Cannula 2.0 03/24/18 04:58 36.7 86 18 99/64 (76) 96 Nasal Cannula 2.0 03/24/18 04:00 Nasal Cannula 2.0 General: Alert and Oriented x3. NAD. Elevated BMI HEENT: Normocephalic Atraumatic. PER, EOMI, conjunctiva and sclera clear Neck: No carotid bruits noted. No overt JVD. Respiratory: Decreased/diminished breath sounds. Bibasilar rales. No wheeze. No rhonchi. Cardiovascular: Irregularly irregular around 80 currently. No murmurs appreciated. Abdomen: +BS. Soft. Nontender. Extremities: 2+ right greater than left lower extremity edema. No overt cellulitis. No clubbing. No cyanosis. No pulses appreciated. Neuro: No focal deficits. Psychiatric: Normal affect. DATA: EKG on admission: Atrial fibrillation with rapid ventricular response at [address] and T wave abnormality No significant change from previous. Repeat EKG this AM: Atrial fibrillation, improved rate Abnormal ECG When compared with ECG of 23-MAR-2018 19:13, (unconfirmed) T wave inversion no longer evident in Lateral leads Chest xray; mild congestion Venous duplex: No evidence of DVT b/l Telemetry: Atrial fibrillation with rates ranging 80-100. Prior Data: echo report reviewed, dated 11/2017 during admission at [facility]: -- Conclusions -- No significant change compared to previous study of 04/28/17. Normal LV chamber size with mild concentric LVH. Normal LV systolic function, EF 60-65%. No segmental left ventricular wall motion abnormalities are noted. No significant valvular pathology. Moderate biatrial enlargement. Labs this admission: Last 24 Hours Test 4/26/18 19:20 03/23/18 19:49 03/23/18 19:57 03/24/18 00:19 Urine Color YELLOW Urine Appearance CLEAR Urine pH 7.0 Urine Specific [place] 1.009 Urine Protein NEG Urine Glucose (UA) NEG Urine Ketones NEG Urine Occult Blood NEG Urine Nitrite NEG Urine Bilirubin NEG Urine Urobilinogen NEG Urine Leukocyte Esterase NEG White Blood Count 6.46 K/uL Red Blood Count 4.15 M/uL Hemoglobin 12.3 g/dL Hematocrit 39.2 % Mean Corpuscular Volume 94.5 fL Mean Corpuscular Hemoglobin 29.6 pg Mean Corpuscular Hemoglobin Concent 31.4 g/dl Platelet Count 164 K/uL Mean Platelet Volume 9.6 fL Neutrophils (%) (Auto) 70.7 % Lymphocytes (%) (Auto) 22.9 % Monocytes (%) (Auto) 5.0 % Eosinophils (%) (Auto) 0.9 % Basophils (%) (Auto) 0.3 % Neutrophils # (Auto) 4.57 K/uL Lymphocytes # (Auto) 1.48 K/uL Monocytes # (Auto) 0.32 K/uL Eosinophils # (Auto) 0.06 K/uL Basophils # (Auto) 0.02 K/uL RDW Standard Deviation 59.3 fL RDW Coefficient of Variation 17.3 % Immature Granulocyte % (Auto) 0.2 % Immature Granulocyte # (Auto) 0.01 K/uL Prothrombin Time 18.7 SECONDS Prothromb Time International Ratio 1.8 Sodium Level 142 mmol/L Potassium Level 4.1 mmol/L Chloride Level 105 mmol/L Carbon Dioxide Level 33 mmol/L Anion Gap 4.0 mmol/L Blood Urea Nitrogen 51 mg/dl Creatinine 1.35 mg/dl Est Creatinine Clear Calc Drug Dose 46.4 ml/min Estimated GFR () 46.6 Estimated GFR (Non- 40.2 BUN/Creatinine Ratio 37.5 Random Glucose 65 mg/dl Calcium Level 10.0 mg/dl Total Bilirubin 0.5 mg/dl Aspartate Amino Transf (AST/SGOT) 9 U/L Alanine Aminotransferase (ALT/SGPT) 19 U/L Alkaline Phosphatase 71 U/L Total Creatine Kinase 36 U/L Creatine Kinase MB 0.6 ng/ml Creatine Kinase MB Ratio 1.7 Troponin I < 0.015 ng/ml Pro-B-Type Natriuretic Peptide 2878 pg/ml Total Protein 7.6 gm/dl Albumin 3.9 gm/dl Globulin 3.7 gm/dl Albumin/Globulin Ratio 1.1 Influenza Type A Antigen Neg for Influ A Influenza Type B Antigen Neg for Influ B Bedside Glucose 108 mg/dl Test 03/24/18 06:52 03/24/18 07:26 White Blood Count 6.24 K/uL Red Blood Count 3.89 M/uL Hemoglobin 11.6 g/dL Hematocrit 36.7 % Mean Corpuscular Volume 94.3 fL Mean Corpuscular Hemoglobin 29.8 pg Mean Corpuscular Hemoglobin Concent 31.6 g/dl Platelet Count 150 K/uL Mean Platelet Volume 9.2 fL Neutrophils (%) (Auto) 66.2 % Lymphocytes (%) (Auto) 27.2 % Monocytes (%) (Auto) 4.5 % Eosinophils (%) (Auto) 1.4 % Basophils (%) (Auto) 0.5 % Neutrophils # (Auto) 4.13 K/uL Lymphocytes # (Auto) 1.70 K/uL Monocytes # (Auto) 0.28 K/uL Eosinophils # (Auto) 0.09 K/uL Basophils # (Auto) 0.03 K/uL RDW Standard Deviation 58.6 fL RDW Coefficient of Variation 17.2 % Immature Granulocyte % (Auto) 0.2 % Immature Granulocyte # (Auto) 0.01 K/uL Prothrombin Time 17.8 SECONDS Prothromb Time International Ratio 1.7 Sodium Level 140 mmol/L Potassium Level 4.2 mmol/L Chloride Level 103 mmol/L Carbon Dioxide Level 33 mmol/L Anion Gap 4.0 mmol/L Blood Urea Nitrogen 48 mg/dl Creatinine 1.23 mg/dl Est Creatinine Clear Calc Drug Dose 50.2 ml/min Estimated GFR () 52.2 Estimated GFR (Non- 45.0 BUN/Creatinine Ratio 39.1 Random Glucose 106 mg/dl Estimated Average Glucose 209 mg/dl Hemoglobin A1c 8.9 % Calcium Level 9.9 mg/dl Magnesium Level 2.1 mg/dl Chemistry Specimen Hemolysis Bedside Glucose 122 mg/dl Assessment & Plan 1. Acute decompensated right sided heart failure signs and symptoms Monitor I/O's and weights daily on a standing scale continue furosemide 40 mg IV BID Sodium and fluid restrictions Monitor renal function/electrolytes 2. Chronic atrial fibrillation, rate controlled Continue chronic Coumadin anticoagulation. INR goal 2.0 to 3.0 3. Moderate obstructive sleep apnea and nocturnal hypoxemia Recommend utilization of her home CPAP device every night if possible 4. Hypertension, hypertensive heart disease Labile BP readings. continue home medications Case discussed with Dr. Teran. Will follow. (Aurelia Hilario, PAAntoniaC) Cardiology Attending Physician: Patient seen and examined at the bedside. Admits to dietary indiscretions over the past week including fast food and excessive sodium intake. Came to the emergency department due to dyspnea on exertion, and worsening lower extremity edema. Mild bilateral pretibial erythema also noted. Denies orthopnea or PND. No chest discomfort. Denies palpitations. Telemetry demonstrates atrial fibrillation with controlled ventricular response. INR subtherapeutic. PE: VSS. Gen: NAD, obese. Heart: Irregular rhythm, tachycardic, no murmur appreciated. Lungs: Diminished breath sounds bilaterally. No rhonchi or wheeze. Ext: 2+ bilateral pretibial edema. + Erythema. A/P: Agree with above SEGUNDO history, physical exam, assessment and plan. Continue IV diuretic therapy. Sodium and fluid restriction recommended. Continue telemetry monitoring during hospitalization. I have ordered 10 mg of oral Coumadin today. Repeat INR in a.m. Consider addition of IV heparin if patient's INR remains subtherapeutic. She is scheduled to receive 6 mg of Coumadin on a daily basis (current outpatient dose). Thank you for allowing us to participate in the care of your patient. Adama Teran DO, [facility] (Erick Teran DO)
[2018-03-24] MEDS ORDERED: WARFARIN SOD 6 MG TAB PO SCH (16:00)
--- NOTE | 2018-03-24 18:03 | Progress Note ---
Medicine Progress Note Date & Time of Visit: Mar 24, 2018 at 18:03. Subjective Patient reports feeling better overall, she reports she was very noncompliant with her diet this past week and keeps talking about all the dietary indiscretions she had not mentioned. No overnight events noted. Feels her breathing is improving a little. LE edema is still present. No other complaints at this time. Objective Last 8 Hrs Date Time Temp Pulse Resp B/P (MAP) Pulse Ox O2 Delivery O2 Flow Rate FiO2 03/24/18 16:00 Nasal Cannula 2.0 03/24/18 14:54 36.7 86 20 90/53 (65) 98 Nasal Cannula 2.0 03/24/18 12:15 Nasal Cannula 2.0 03/24/18 11:30 36.6 93 18 83/57 (66) 96 108/7 (40) Physical Exam: GENERAL: Patient is in no acute distress. HEENT: No acute trauma, normocephalic, mucous membranes moist, no nasal congestion, no scleral icterus. NECK: No stridor, trachea is midline. LUNGS: Diminished bilateral bases, no wheeze, no rhonchi, breath sounds equal. HEART: Without murmurs gallops or rubs, regular rate and rhythm. ABDOMEN: Soft, nontender, bowel sounds positive EXTREMITIES: No cyanosis; B/L LE edema, moving all extremities without pain or difficulty, no signs for acute trauma. NEUROLOGIC: Oriented x 3, no acute motor or sensory deficits, no focal weakness. SKIN: No rash, no jaundice, no diaphoresis. Laboratory Results: Last 24 Hours Test 03/23/18 19:20 03/23/18 19:49 03/23/18 19:57 03/24/18 00:19 Urine Color YELLOW Urine Appearance CLEAR Urine pH 7.0 Urine Specific [place] 1.009 Urine Protein NEG Urine Glucose (UA) NEG Urine Ketones NEG Urine Occult Blood NEG Urine Nitrite NEG Urine Bilirubin NEG Urine Urobilinogen NEG Urine Leukocyte Esterase NEG White Blood Count 6.46 K/uL Red Blood Count 4.15 M/uL Hemoglobin 12.3 g/dL Hematocrit 39.2 % Mean Corpuscular Volume 94.5 fL Mean Corpuscular Hemoglobin 29.6 pg Mean Corpuscular Hemoglobin Concent 31.4 g/dl Platelet Count 164 K/uL Mean Platelet Volume 9.6 fL Neutrophils (%) (Auto) 70.7 % Lymphocytes (%) (Auto) 22.9 % Monocytes (%) (Auto) 5.0 % Eosinophils (%) (Auto) 0.9 % Basophils (%) (Auto) 0.3 % Neutrophils # (Auto) 4.57 K/uL Lymphocytes # (Auto) 1.48 K/uL Monocytes # (Auto) 0.32 K/uL Eosinophils # (Auto) 0.06 K/uL Basophils # (Auto) 0.02 K/uL RDW Standard Deviation 59.3 fL RDW Coefficient of Variation 17.3 % Immature Granulocyte % (Auto) 0.2 % Immature Granulocyte # (Auto) 0.01 K/uL Prothrombin Time 18.7 SECONDS Prothromb Time International Ratio 1.8 Sodium Level 142 mmol/L Potassium Level 4.1 mmol/L Chloride Level 105 mmol/L Carbon Dioxide Level 33 mmol/L Anion Gap 4.0 mmol/L Blood Urea Nitrogen 51 mg/dl Creatinine 1.35 mg/dl Est Creatinine Clear Calc Drug Dose 46.4 ml/min Estimated GFR () 46.6 Estimated GFR (Non- 40.2 BUN/Creatinine Ratio 37.5 Random Glucose 65 mg/dl Calcium Level 10.0 mg/dl Total Bilirubin 0.5 mg/dl Aspartate Amino Transf (AST/SGOT) 9 U/L Alanine Aminotransferase (ALT/SGPT) 19 U/L Alkaline Phosphatase 71 U/L Total Creatine Kinase 36 U/L Creatine Kinase MB 0.6 ng/ml Creatine Kinase MB Ratio 1.7 Troponin I < 0.015 ng/ml Pro-B-Type Natriuretic Peptide 2878 pg/ml Total Protein 7.6 gm/dl Albumin 3.9 gm/dl Globulin 3.7 gm/dl Albumin/Globulin Ratio 1.1 Influenza Type A Antigen Neg for Influ A Influenza Type B Antigen Neg for Influ B Bedside Glucose 108 mg/dl Test 03/24/18 06:52 03/24/18 07:26 03/24/18 11:35 03/24/18 16:15 White Blood Count 6.24 K/uL Red Blood Count 3.89 M/uL Hemoglobin 11.6 g/dL Hematocrit 36.7 % Mean Corpuscular Volume 94.3 fL Mean Corpuscular Hemoglobin 29.8 pg Mean Corpuscular Hemoglobin Concent 31.6 g/dl Platelet Count 150 K/uL Mean Platelet Volume 9.2 fL Neutrophils (%) (Auto) 66.2 % Lymphocytes (%) (Auto) 27.2 % Monocytes (%) (Auto) 4.5 % Eosinophils (%) (Auto) 1.4 % Basophils (%) (Auto) 0.5 % Neutrophils # (Auto) 4.13 K/uL Lymphocytes # (Auto) 1.70 K/uL Monocytes # (Auto) 0.28 K/uL Eosinophils # (Auto) 0.09 K/uL Basophils # (Auto) 0.03 K/uL RDW Standard Deviation 58.6 fL RDW Coefficient of Variation 17.2 % Immature Granulocyte % (Auto) 0.2 % Immature Granulocyte # (Auto) 0.01 K/uL Prothrombin Time 17.8 SECONDS Prothromb Time International Ratio 1.7 Sodium Level 140 mmol/L Potassium Level 4.2 mmol/L Chloride Level 103 mmol/L Carbon Dioxide Level 33 mmol/L Anion Gap 4.0 mmol/L Blood Urea Nitrogen 48 mg/dl Creatinine 1.23 mg/dl Est Creatinine Clear Calc Drug Dose 50.2 ml/min Estimated GFR () 52.2 Estimated GFR (Non- 45.0 BUN/Creatinine Ratio 39.1 Random Glucose 106 mg/dl Estimated Average Glucose 209 mg/dl Hemoglobin A1c 8.9 % Calcium Level 9.9 mg/dl Magnesium Level 2.1 mg/dl Chemistry Specimen Hemolysis Bedside Glucose 122 mg/dl 149 mg/dl 89 mg/dl Assessment & Plan ACUTE EXACERBATION SUPERIMPOSED ON CHRONIC RIGHT SIDED HEART FAILURE -presented with worsening shortness of breath and LE edema -known cor pulmonale -admits to noncompliance with salt restrictions and many dietary indiscretions -previously was fairly well controlled on Lasix 60 mg p.o. b.i.d. which was changed to IV Lasix 40 b.i.d. during admission -daily weights, I's and O's -monitor in tele -Cardiology consulted NUVIA: -continue CPAP q HS DM TYPE II: -continue Lantus + correction scale -hold PO medications while hospitalized -HbA1C: 8.9% ATRIAL FIBRILLATION: -continued on metoprolol and Coumadin -INR subtherapeutic 1.8-->1.7 -rate controlled -was given a larger dose of coumadin per Cardio HTN: -on lisinopril and metoprolol -monitor blood pressure COPD and History of mediastinal adenopathy: -follow with pulmonary -not in exacerbation Current Inpatient Medications: Current Inpatient Medications Medications (Trade) Dose Ordered Sig/Amara Route Start Time Stop Time Status Last Admin Dose Admin Acetaminophen (Tylenol Tab) 650 mg Q4H PRN PO 03/23/18 23:15 04/22/18 23:14 Al Hydrox/Mg Hydrox/Simethicone (Maalox Max Susp) 15 ml Q4H PRN PO 03/23/18 23:15 04/22/18 23:14 Ondansetron HCl (Zofran Inj) 4 mg Q6H PRN IV 03/23/18 23:15 04/22/18 23:14 Nitroglycerin (Nitrostat Tab) 0.4 mg UD PRN SL 03/23/18 23:15 04/22/18 23:14 Polyethylene (Miralax Powder Packet) 17 gm DAILY PRN PO 03/23/18 23:15 04/22/18 23:14 Allopurinol (Zyloprim Tab) 300 mg DAILY PO 03/24/18 09:00 04/23/18 08:59 03/24/18 08:22 300 MG Aspirin (Ecotrin Tab) 81 mg DAILY PO 03/24/18 09:00 04/23/18 08:59 03/24/18 08:22 81 MG Atorvastatin Calcium (Lipitor Tab) 80 mg QAM PO 03/24/18 09:00 04/23/18 08:59 03/24/18 08:23 80 MG Cholecalciferol (Vitamin D Tab) 2,000 inter.unit DAILY PO 03/24/18 09:00 04/23/18 08:59 03/24/18 08:22 2,000 INTER.UNIT Gabapentin (Neurontin Cap) 300 mg HS PO 03/24/18 21:00 04/23/18 20:59 03/24/18 01:16 300 MG Insulin Glargine (Lantus Solostar Pen) 30 units QAM SC 03/24/18 09:00 04/23/18 08:59 03/24/18 08:28 30 UNITS Lisinopril (Zestril Tab) 20 mg BID PO 03/24/18 09:00 04/23/18 08:59 03/24/18 08:23 20 MG Magnesium Oxide (Mag-Ox Tab) 400 mg BID PO 03/24/18 09:00 04/23/18 08:59 03/24/18 08:23 400 MG Metoprolol Tartrate (Lopressor Tab) 25 mg BID PO 03/24/18 09:00 04/23/18 08:59 03/24/18 08:23 25 MG Tramadol HCl (Ultram Tab) 50 mg Q6 PRN PO 03/23/18 23:15 04/22/18 23:14 Cyanocobalamin (Vitamin B-12 Tab) 1,000 mcg DAILY PO 03/24/18 09:00 04/23/18 08:59 03/24/18 08:23 1,000 MCG Furosemide 40 mg/ Syringe 4 ml @ 4 mls/min BID@0900,1700 IV 03/24/18 09:00 04/23/18 08:59 03/24/18 17:05 4 MLS/MIN Insulin Aspart (novoLOG ASPART) SLIDING SCALE G... ACHS SC 03/24/18 06:30 04/23/18 06:59 03/24/18 12:31 4 UNITS Glucose (Glucose 40% Gel) 15-30 GRAMS 15 GRAMS... UD PRN PO 03/24/18 00:45 04/23/18 00:44 Glucose (Glucose Chew Tab) 4-8 Tablets 4 Tabl... UD PRN PO 03/24/18 00:45 04/23/18 00:44 Dextrose (Dextrose 50% 50ML Syringe) 25-50ML OF 50% DW IV FOR... UD PRN IV 03/24/18 00:45 04/23/18 00:44 Glucagon (Glucagon Inj) 1 mg UD PRN SQ 03/24/18 00:45 04/23/18 00:44 Warfarin Sodium (Coumadin Tab) 6 mg DAILY@1600 PO 03/25/18 16:00 04/23/18 15:59
[2018-03-25] VITALS (7 sets, daily range): BP systolic 97–131; BP diastolic 61–73; PULSE 72–99; TEMP 36.3–37.4; O2SAT 91–97
[2018-03-25 06:12] LABS: BASO % 0.3 %; BASO ABS # 0.02 K/uL (0-0.2); EOS % 1.7 %; HEMATOCRIT 35.5 % (37-47); HEMOGLOBIN 11.4 g/dL (12.0-16.0); IG# 0.01 K/uL (0.00-0.02); LYMPH % 27.1 %; LYMPH ABS # 1.62 K/uL (1.2-3.4); MEAN CELL VOLUME 93.4 fL (80-100); MEAN CORPUSCULAR HGB CONC 32.1 g/dl (32-36); MEAN PLATELET VOLUME 8.9 fL (7.4-10.4); MONO % 5.7 %; MONO ABS # 0.34 K/uL (0.11-0.59); NEUT ABS # 3.89 K/uL (1.4-6.5); PLATELET COUNT 140 K/uL (130-400); RED CELL DISTRIBUTION WIDTH CV 16.9 % (11.5-14.5); WHITE BLOOD COUNT 5.98 K/uL (4.8-10.8)
[2018-03-25 06:18] LABS: INR 2.2 (0.9-1.1)
[2018-03-25 06:40] LABS: CALCIUM 9.5 mg/dl (8.5-10.1); CREATININE 1.54 mg/dl (0.60-1.20); POTASSIUM 4.2 mmol/L (3.5-5.1)
[2018-03-25] MEDS: CHOLECALCIFEROL 1000 INTER.UNIT TAB PO SCH (08:48)
[2018-03-25] MEDS: CYANOCOBALAMIN 500 MCG TAB (VIT B-12) PO SCH (08:48)
[2018-03-25] MEDS: MAGNESIUM OXIDE 400 MG TAB PO SCH ×2 (08:48→20:55)
[2018-03-25] MEDS: ASPIRIN 81 MG ECTAB PO SCH (08:48)
[2018-03-25] MEDS: ATORVASTATIN 40 MG TAB PO SCH (08:48)
[2018-03-25] MEDS: METOPROLOL TARTRATE 25 MG TAB PO SCH ×2 (08:48→20:55)
[2018-03-25] MEDS: ALLOPURINOL 300 MG TAB PO SCH (08:48)
[2018-03-25] MEDS: LISINOPRIL 20 MG TAB PO SCH ×2 (08:49→20:55)
[2018-03-25] MEDS: INSULIN ASPART 100 UNITS/ML 3 ML PEN SC SCH ×4 (08:50→20:55)
[2018-03-25] MEDS: INSULIN GLARGINE SOLOSTAR 100 UNITS/ML 3 ML PEN SC SCH (08:50)
[2018-03-25] MEDS ORDERED: FUROSEMIDE INJ 40 MG in SYRINGE 0 ML IV ONE (09:45)
--- NOTE | 2018-03-25 09:47 | Cardiology Follow-Up ---
Subjective Subjective Date of Service: Mar 25, 2018. Additional Details: The patient is a 67-year-old female with a history of obesity, sleep apnea, hypoventilation syndrome and cor pulmonale. It has been 25 years since her so she decided to go off her diet. She had several [employer] sandwiches and went to [employer]. Over the past several days she has had weight gain due to fluid retention. She has no new complaints today. Problem List Medical Problems: (1) Acute coronary syndrome Status: Acute (2) Chest pain, precordial Status: Acute (3) CHF exacerbation Status: Acute (4) Pancreatitis Status: Acute Objective Vital Signs Last Vital Signs Documentation Date Time Temp Pulse Resp B/P (MAP) Pulse Ox O2 Delivery O2 Flow Rate FiO2 03/25/18 08:00 Nasal Cannula 2.0 03/25/18 07:17 36.6 99 20 110/67 (81) 91 Physical Exam: General Appearance: no apparent distress Neck: no adenopathy, thyroid normal, no JVD Respiratory/Chest: lungs clear, normal breath sounds, + pertinent finding Cardiovascular: regular rate, rhythm, no edema Abdomen: soft Extremities: + pedal edema Neurologic/Psychiatric: no motor/sensory deficits, oriented x 3 Skin: normal color, warm/dry, no rash Lymphatic: no adenopathy Assessment and Plan Impression/recommendations: The patient is still retaining fluid and I would recommend continued diuresis. Her creatinine has increased since admission but that I believe may be her baseline and the admitting creatinine was delusional. I do not believe she is back to baseline. I will give her additional Lasix today. When she is back to baseline however, she can be discharged home. Medications: Current Inpatient Medications Medications (Trade) Dose Ordered Sig/Amara Route Start Time Stop Time Status Last Admin Dose Admin Acetaminophen (Tylenol Tab) 650 mg Q4H PRN PO 03/23/18 23:15 04/22/18 23:14 Al Hydrox/Mg Hydrox/Simethicone (Maalox Max Susp) 15 ml Q4H PRN PO 03/23/18 23:15 04/22/18 23:14 Ondansetron HCl (Zofran Inj) 4 mg Q6H PRN IV 03/23/18 23:15 04/22/18 23:14 Nitroglycerin (Nitrostat Tab) 0.4 mg UD PRN SL 4/26/18 23:15 04/22/18 23:14 Polyethylene (Miralax Powder Packet) 17 gm DAILY PRN PO 03/23/18 23:15 04/22/18 23:14 Allopurinol (Zyloprim Tab) 300 mg DAILY PO 03/24/18 09:00 04/23/18 08:59 03/25/18 08:48 300 MG Aspirin (Ecotrin Tab) 81 mg DAILY PO 03/24/18 09:00 04/23/18 08:59 03/25/18 08:48 81 MG Atorvastatin Calcium (Lipitor Tab) 80 mg QAM PO 03/24/18 09:00 04/23/18 08:59 03/25/18 08:48 80 MG Cholecalciferol (Vitamin D Tab) 2,000 inter.unit DAILY PO 03/24/18 09:00 04/23/18 08:59 03/25/18 08:48 2,000 INTER.UNIT Gabapentin (Neurontin Cap) 300 mg HS PO 03/24/18 21:00 04/23/18 20:59 03/24/18 20:56 300 MG Insulin Glargine (Lantus Solostar Pen) 30 units QAM SC 03/24/18 09:00 04/23/18 08:59 03/25/18 08:50 30 UNITS Lisinopril (Zestril Tab) 20 mg BID PO 03/24/18 09:00 04/23/18 08:59 03/25/18 08:49 20 MG Magnesium Oxide (Mag-Ox Tab) 400 mg BID PO 03/24/18 09:00 04/23/18 08:59 03/25/18 08:48 400 MG Metoprolol Tartrate (Lopressor Tab) 25 mg BID PO 03/24/18 09:00 04/23/18 08:59 03/25/18 08:48 25 MG Tramadol HCl (Ultram Tab) 50 mg Q6 PRN PO 03/23/18 23:15 04/22/18 23:14 Cyanocobalamin (Vitamin B-12 Tab) 1,000 mcg DAILY PO 03/24/18 09:00 04/23/18 08:59 03/25/18 08:48 1,000 MCG Furosemide 40 mg/ Syringe 4 ml @ 4 mls/min BID@0900,1700 IV 03/24/18 09:00 04/23/18 08:59 Future Hold 03/24/18 17:05 4 MLS/MIN Insulin Aspart (novoLOG ASPART) SLIDING SCALE G... ACHS SC 03/24/18 06:30 04/23/18 06:59 03/25/18 08:50 6 UNITS Glucose (Glucose 40% Gel) 15-30 GRAMS 15 GRAMS... UD PRN PO 03/24/18 00:45 04/23/18 00:44 Glucose (Glucose Chew Tab) 4-8 Tablets 4 Tabl... UD PRN PO 03/24/18 00:45 04/23/18 00:44 Dextrose (Dextrose 50% 50ML Syringe) 25-50ML OF 50% DW IV FOR... UD PRN IV 03/24/18 00:45 04/23/18 00:44 Glucagon (Glucagon Inj) 1 mg UD PRN SQ 03/24/18 00:45 04/23/18 00:44 Warfarin Sodium (Coumadin Tab) 6 mg DAILY@1600 PO 03/25/18 16:00 04/23/18 15:59 Lab Results: Last 24 Hours Test 03/24/18 11:35 03/24/18 16:15 03/24/18 20:25 03/25/18 06:01 Bedside Glucose 149 mg/dl 89 mg/dl 134 mg/dl White Blood Count 5.98 K/uL Red Blood Count 3.80 M/uL Hemoglobin 11.4 g/dL Hematocrit 35.5 % Mean Corpuscular Volume 93.4 fL Mean Corpuscular Hemoglobin 30.0 pg Mean Corpuscular Hemoglobin Concent 32.1 g/dl Platelet Count 140 K/uL Mean Platelet Volume 8.9 fL Neutrophils (%) (Auto) 65.0 % Lymphocytes (%) (Auto) 27.1 % Monocytes (%) (Auto) 5.7 % Eosinophils (%) (Auto) 1.7 % Basophils (%) (Auto) 0.3 % Neutrophils # (Auto) 3.89 K/uL Lymphocytes # (Auto) 1.62 K/uL Monocytes # (Auto) 0.34 K/uL Eosinophils # (Auto) 0.10 K/uL Basophils # (Auto) 0.02 K/uL RDW Standard Deviation 58.0 fL RDW Coefficient of Variation 16.9 % Immature Granulocyte % (Auto) 0.2 % Immature Granulocyte # (Auto) 0.01 K/uL Prothrombin Time 22.4 SECONDS Prothromb Time International Ratio 2.2 Sodium Level 138 mmol/L Potassium Level 4.2 mmol/L Chloride Level 101 mmol/L Carbon Dioxide Level 32 mmol/L Anion Gap 5.0 mmol/L Blood Urea Nitrogen 58 mg/dl Creatinine 1.54 mg/dl Est Creatinine Clear Calc Drug Dose 40.0 ml/min Estimated GFR () 39.8 Estimated GFR (Non- 34.3 BUN/Creatinine Ratio 37.4 Random Glucose 109 mg/dl Calcium Level 9.5 mg/dl Magnesium Level 2.3 mg/dl Test 03/25/18 07:37 Bedside Glucose 121 mg/dl
[2018-03-25] MEDS: WARFARIN SOD 6 MG TAB PO SCH (16:41)
[2018-03-25] MEDS: FUROSEMIDE INJ 40 MG in SYRINGE 0 ML IV SCH (16:41)
--- NOTE | 2018-03-25 18:01 | Progress Note ---
Medicine Progress Note Date & Time of Visit: Mar 25, 2018 at 18:01. Subjective Patient doing ok, feels her breathing is improving but not yet at baseline. Has persistent LE edema. Has been ambulating in her room without difficulty. No overnight events noted. Tolerating PO. Is still fixated on her binging of foods which she blames as the cause of her admission. Objective Last 8 Hrs Date Time Temp Pulse Resp B/P (MAP) Pulse Ox O2 Delivery O2 Flow Rate FiO2 03/25/18 16:00 Nasal Cannula 2.0 03/25/18 15:03 37.4 80 20 120/61 (80) 96 Nasal Cannula 2.0 03/25/18 12:00 Nasal Cannula 2.0 03/25/18 11:10 36.6 82 20 131/73 (92) 97 Nasal Cannula 2.0 Physical Exam: GENERAL: Patient is in no acute distress. HEENT: No acute trauma, normocephalic, mucous membranes moist, no nasal congestion, no scleral icterus. NECK: No stridor, trachea is midline. LUNGS: Diminished bilateral bases, no wheeze, no rhonchi, breath sounds equal. HEART: Without murmurs gallops or rubs, regular rate and rhythm. ABDOMEN: Soft, nontender, bowel sounds positive EXTREMITIES: No cyanosis; B/L LE edema, moving all extremities without pain or difficulty, no signs for acute trauma. NEUROLOGIC: Oriented x 3, no acute motor or sensory deficits, no focal weakness. SKIN: No rash, no jaundice, no diaphoresis. Laboratory Results: Last 24 Hours Test 03/24/18 20:25 03/25/18 06:01 03/25/18 07:37 03/25/18 11:20 Bedside Glucose 134 mg/dl 121 mg/dl 163 mg/dl White Blood Count 5.98 K/uL Red Blood Count 3.80 M/uL Hemoglobin 11.4 g/dL Hematocrit 35.5 % Mean Corpuscular Volume 93.4 fL Mean Corpuscular Hemoglobin 30.0 pg Mean Corpuscular Hemoglobin Concent 32.1 g/dl Platelet Count 140 K/uL Mean Platelet Volume 8.9 fL Neutrophils (%) (Auto) 65.0 % Lymphocytes (%) (Auto) 27.1 % Monocytes (%) (Auto) 5.7 % Eosinophils (%) (Auto) 1.7 % Basophils (%) (Auto) 0.3 % Neutrophils # (Auto) 3.89 K/uL Lymphocytes # (Auto) 1.62 K/uL Monocytes # (Auto) 0.34 K/uL Eosinophils # (Auto) 0.10 K/uL Basophils # (Auto) 0.02 K/uL RDW Standard Deviation 58.0 fL RDW Coefficient of Variation 16.9 % Immature Granulocyte % (Auto) 0.2 % Immature Granulocyte # (Auto) 0.01 K/uL Prothrombin Time 22.4 SECONDS Prothromb Time International Ratio 2.2 Sodium Level 138 mmol/L Potassium Level 4.2 mmol/L Chloride Level 101 mmol/L Carbon Dioxide Level 32 mmol/L Anion Gap 5.0 mmol/L Blood Urea Nitrogen 58 mg/dl Creatinine 1.54 mg/dl Est Creatinine Clear Calc Drug Dose 40.0 ml/min Estimated GFR () 39.8 Estimated GFR (Non- 34.3 BUN/Creatinine Ratio 37.4 Random Glucose 109 mg/dl Calcium Level 9.5 mg/dl Magnesium Level 2.3 mg/dl Test 03/25/18 16:23 Bedside Glucose 82 mg/dl Assessment & Plan ACUTE EXACERBATION SUPERIMPOSED ON CHRONIC RIGHT SIDED HEART FAILURE -presented with worsening shortness of breath and LE edema -known cor pulmonale -admits to noncompliance with salt restrictions and many dietary indiscretions -previously was fairly well controlled on Lasix 60 mg p.o. b.i.d. which was changed to IV Lasix 40 b.i.d. during admission -daily weights, I's and O's -monitor in tele -Cardiology consulted HALI: -renal function worsening Cr today is 1.54 -Cr at baseline per outpatient and inpatient labs 0.8 -lasix to be continued per Cardio NUVIA: -continue CPAP q HS DM TYPE II: -continue Lantus + correction scale -hold PO medications while hospitalized -HbA1C: 8.9% ATRIAL FIBRILLATION: -continued on metoprolol and Coumadin -INR subtherapeutic 1.8-->1.7-->2.2 -rate controlled -was given a larger dose of coumadin per Cardio HTN: -on lisinopril and metoprolol -monitor blood pressure COPD and History of mediastinal adenopathy: -follow with pulmonary -not in exacerbation Current Inpatient Medications: Current Inpatient Medications Medications (Trade) Dose Ordered Sig/Amara Route Start Time Stop Time Status Last Admin Dose Admin Acetaminophen (Tylenol Tab) 650 mg Q4H PRN PO 03/23/18 23:15 04/22/18 23:14 Al Hydrox/Mg Hydrox/Simethicone (Maalox Max Susp) 15 ml Q4H PRN PO 03/23/18 23:15 04/22/18 23:14 Ondansetron HCl (Zofran Inj) 4 mg Q6H PRN IV 03/23/18 23:15 04/22/18 23:14 Nitroglycerin (Nitrostat Tab) 0.4 mg UD PRN SL 03/23/18 23:15 04/22/18 23:14 Polyethylene (Miralax Powder Packet) 17 gm DAILY PRN PO 03/23/18 23:15 04/22/18 23:14 Allopurinol (Zyloprim Tab) 300 mg DAILY PO 03/24/18 09:00 04/23/18 08:59 03/25/18 08:48 300 MG Aspirin (Ecotrin Tab) 81 mg DAILY PO 03/24/18 09:00 04/23/18 08:59 03/25/18 08:48 81 MG Atorvastatin Calcium (Lipitor Tab) 80 mg QAM PO 03/24/18 09:00 04/23/18 08:59 03/25/18 08:48 80 MG Cholecalciferol (Vitamin D Tab) 2,000 inter.unit DAILY PO 03/24/18 09:00 04/23/18 08:59 03/25/18 08:48 2,000 INTER.UNIT Gabapentin (Neurontin Cap) 300 mg HS PO 03/24/18 21:00 04/23/18 20:59 03/24/18 20:56 300 MG Insulin Glargine (Lantus Solostar Pen) 30 units QAM SC 03/24/18 09:00 04/23/18 08:59 03/25/18 08:50 30 UNITS Lisinopril (Zestril Tab) 20 mg BID PO 03/24/18 09:00 04/23/18 08:59 03/25/18 08:49 20 MG Magnesium Oxide (Mag-Ox Tab) 400 mg BID PO 03/24/18 09:00 04/23/18 08:59 03/25/18 08:48 400 MG Metoprolol Tartrate (Lopressor Tab) 25 mg BID PO 03/24/18 09:00 04/23/18 08:59 03/25/18 08:48 25 MG Tramadol HCl (Ultram Tab) 50 mg Q6 PRN PO 03/23/18 23:15 04/22/18 23:14 Cyanocobalamin (Vitamin B-12 Tab) 1,000 mcg DAILY PO 03/24/18 09:00 04/23/18 08:59 03/25/18 08:48 1,000 MCG Insulin Aspart (novoLOG ASPART) SLIDING SCALE G... ACHS SC 03/24/18 06:30 04/23/18 06:59 03/25/18 17:01 6 UNITS Glucose (Glucose 40% Gel) 15-30 GRAMS 15 GRAMS... UD PRN PO 03/24/18 00:45 04/23/18 00:44 Glucose (Glucose Chew Tab) 4-8 Tablets 4 Tabl... UD PRN PO 03/24/18 00:45 04/23/18 00:44 Dextrose (Dextrose 50% 50ML Syringe) 25-50ML OF 50% DW IV FOR... UD PRN IV 03/24/18 00:45 04/23/18 00:44 Glucagon (Glucagon Inj) 1 mg UD PRN SQ 03/24/18 00:45 04/23/18 00:44 Warfarin Sodium (Coumadin Tab) 6 mg DAILY@1600 PO 03/25/18 16:00 04/23/18 15:59 03/25/18 16:41 6 MG Furosemide 40 mg/ Syringe 4 ml @ 4 mls/min BID17 IV 03/25/18 17:00 04/24/18 16:59 03/25/18 16:41 4 MLS/MIN
[2018-03-25] MEDS: GABAPENTIN 300 MG CAP PO SCH (20:55)
[2018-03-26] VITALS (8 sets, daily range): BP systolic 95–115; BP diastolic 54–78; PULSE 77–87; TEMP 36.3–36.8; O2SAT 94–99
[2018-03-26 06:15] LABS: BASO % 0.5 %; BASO ABS # 0.03 K/uL (0-0.2); EOS % 1.9 %; EOS ABS # 0.12 K/uL (0-0.5); HEMATOCRIT 34.5 % (37-47); HEMOGLOBIN 11.1 g/dL (12.0-16.0); IG# 0.02 K/uL (0.00-0.02); LYMPH % 27.3 %; MEAN CORPUSCULAR HEMOGLOBIN 29.9 pg (25-34); MEAN CORPUSCULAR HGB CONC 32.2 g/dl (32-36); MEAN PLATELET VOLUME 9.5 fL (7.4-10.4); MONO % 6.6 %; MONO ABS # 0.41 K/uL (0.11-0.59); NEUT % 63.4 %; NEUT ABS # 3.95 K/uL (1.4-6.5); PLATELET COUNT 141 K/uL (130-400); RED CELL DISTRIBUTION WIDTH CV 17.1 % (11.5-14.5); RED CELL DISTRIBUTION WIDTH SD 57.8 fL (36.4-46.3); WHITE BLOOD COUNT 6.23 K/uL (4.8-10.8)
[2018-03-26 06:31] LABS: INR 2.1 (0.9-1.1)
[2018-03-26 06:47] LABS: CALCIUM 9.3 mg/dl (8.5-10.1); CREATININE 1.71 mg/dl (0.60-1.20); POTASSIUM 4.1 mmol/L (3.5-5.1)
[2018-03-26] MEDS: LISINOPRIL 20 MG TAB PO SCH ×2 (07:49→20:42)
[2018-03-26] MEDS: ALLOPURINOL 300 MG TAB PO SCH (07:49)
[2018-03-26] MEDS: ATORVASTATIN 40 MG TAB PO SCH (07:50)
[2018-03-26] MEDS: METOPROLOL TARTRATE 25 MG TAB PO SCH ×2 (07:50→20:42)
[2018-03-26] MEDS: ASPIRIN 81 MG ECTAB PO SCH (07:50)
[2018-03-26] MEDS: MAGNESIUM OXIDE 400 MG TAB PO SCH (07:50)
[2018-03-26] MEDS: CYANOCOBALAMIN 500 MCG TAB (VIT B-12) PO SCH (07:50)
[2018-03-26] MEDS: CHOLECALCIFEROL 1000 INTER.UNIT TAB PO SCH (07:50)
[2018-03-26] MEDS: INSULIN ASPART 100 UNITS/ML 3 ML PEN SC SCH ×4 (08:13→20:41)
[2018-03-26] MEDS: INSULIN GLARGINE SOLOSTAR 100 UNITS/ML 3 ML PEN SC SCH (08:14)
[2018-03-26] MEDS: FUROSEMIDE INJ 40 MG in SYRINGE 0 ML IV SCH ×2 (08:14→17:11)
--- NOTE | 2018-03-26 14:29 | Cardiology Follow-Up ---
Subjective Subjective Date of Service: Mar 26, 2018. Pt evaluation today including: conversation w/ patient, physical exam, chart review, lab review, review of studies Additional Details: The only complaint the patient has today is some cramping of her legs most likely due to heavy diuresis. She feels better. She denies shortness of breath orthopnea. No chest pain. Problem List Medical Problems: (1) Acute coronary syndrome Status: Acute (2) Chest pain, precordial Status: Acute (3) CHF exacerbation Status: Acute (4) Pancreatitis Status: Acute Objective Vital Signs Last Vital Signs Documentation Date Time Temp Pulse Resp B/P (MAP) Pulse Ox O2 Delivery O2 Flow Rate FiO2 03/26/18 12:00 Room Air 03/26/18 11:36 36.3 80 20 108/69 (82) 97 2.0 Physical Exam: General Appearance: no apparent distress Neck: no adenopathy, thyroid normal, no JVD Respiratory/Chest: lungs clear, normal breath sounds, + pertinent finding Cardiovascular: regular rate, rhythm, no edema Abdomen: soft Extremities: + pedal edema Neurologic/Psychiatric: no motor/sensory deficits, oriented x 3 Skin: normal color, warm/dry, no rash Lymphatic: no adenopathy Assessment and Plan Impression/recommendations: The patient is slowly diuresing. I think by tomorrow she should be ready for outpatient follow-up. Medications: Current Inpatient Medications Medications (Trade) Dose Ordered Sig/Amara Route Start Time Stop Time Status Last Admin Dose Admin Acetaminophen (Tylenol Tab) 650 mg Q4H PRN PO 03/23/18 23:15 04/22/18 23:14 03/26/18 01:44 650 MG Al Hydrox/Mg Hydrox/Simethicone (Maalox Max Susp) 15 ml Q4H PRN PO 03/23/18 23:15 04/22/18 23:14 Ondansetron HCl (Zofran Inj) 4 mg Q6H PRN IV 03/23/18 23:15 04/22/18 23:14 Nitroglycerin (Nitrostat Tab) 0.4 mg UD PRN SL 03/23/18 23:15 04/22/18 23:14 Polyethylene (Miralax Powder Packet) 17 gm DAILY PRN PO 03/23/18 23:15 04/22/18 23:14 Allopurinol (Zyloprim Tab) 300 mg DAILY PO 03/24/18 09:00 04/23/18 08:59 03/26/18 07:49 300 MG Aspirin (Ecotrin Tab) 81 mg DAILY PO 03/24/18 09:00 04/23/18 08:59 03/26/18 07:50 81 MG Atorvastatin Calcium (Lipitor Tab) 80 mg QAM PO 03/24/18 09:00 04/23/18 08:59 03/26/18 07:50 80 MG Cholecalciferol (Vitamin D Tab) 2,000 inter.unit DAILY PO 03/24/18 09:00 04/23/18 08:59 03/26/18 07:50 2,000 INTER.UNIT Gabapentin (Neurontin Cap) 300 mg HS PO 03/24/18 21:00 04/23/18 20:59 03/25/18 20:55 300 MG Insulin Glargine (Lantus Solostar Pen) 30 units QAM SC 03/24/18 09:00 04/23/18 08:59 03/26/18 08:14 30 UNITS Lisinopril (Zestril Tab) 20 mg BID PO 03/24/18 09:00 04/23/18 08:59 03/26/18 07:49 20 MG Magnesium Oxide (Mag-Ox Tab) 400 mg BID PO 03/24/18 09:00 04/23/18 08:59 Future Hold 03/26/18 07:50 400 MG Metoprolol Tartrate (Lopressor Tab) 25 mg BID PO 03/24/18 09:00 04/23/18 08:59 03/26/18 07:50 25 MG Tramadol HCl (Ultram Tab) 50 mg Q6 PRN PO 03/23/18 23:15 04/22/18 23:14 Cyanocobalamin (Vitamin B-12 Tab) 1,000 mcg DAILY PO 03/24/18 09:00 04/23/18 08:59 03/26/18 07:50 1,000 MCG Insulin Aspart (novoLOG ASPART) SLIDING SCALE G... ACHS SC 03/24/18 06:30 04/23/18 06:59 03/26/18 12:15 8 UNITS Glucose (Glucose 40% Gel) 15-30 GRAMS 15 GRAMS... UD PRN PO 03/24/18 00:45 04/23/18 00:44 Glucose (Glucose Chew Tab) 4-8 Tablets 4 Tabl... UD PRN PO 03/24/18 00:45 04/23/18 00:44 Dextrose (Dextrose 50% 50ML Syringe) 25-50ML OF 50% DW IV FOR... UD PRN IV 03/24/18 00:45 04/23/18 00:44 Glucagon (Glucagon Inj) 1 mg UD PRN SQ 03/24/18 00:45 04/23/18 00:44 Warfarin Sodium (Coumadin Tab) 6 mg DAILY@1600 PO 03/25/18 16:00 04/23/18 15:59 03/25/18 16:41 6 MG Furosemide 40 mg/ Syringe 4 ml @ 4 mls/min BID17 IV 03/25/18 17:00 04/24/18 16:59 03/26/18 08:14 4 MLS/MIN Lab Results: Last 24 Hours Test 03/25/18 16:23 03/25/18 20:19 03/26/18 05:45 03/26/18 07:28 Bedside Glucose 82 mg/dl 131 mg/dl 112 mg/dl White Blood Count 6.23 K/uL Red Blood Count 3.71 M/uL Hemoglobin 11.1 g/dL Hematocrit 34.5 % Mean Corpuscular Volume 93.0 fL Mean Corpuscular Hemoglobin 29.9 pg Mean Corpuscular Hemoglobin Concent 32.2 g/dl Platelet Count 141 K/uL Mean Platelet Volume 9.5 fL Neutrophils (%) (Auto) 63.4 % Lymphocytes (%) (Auto) 27.3 % Monocytes (%) (Auto) 6.6 % Eosinophils (%) (Auto) 1.9 % Basophils (%) (Auto) 0.5 % Neutrophils # (Auto) 3.95 K/uL Lymphocytes # (Auto) 1.70 K/uL Monocytes # (Auto) 0.41 K/uL Eosinophils # (Auto) 0.12 K/uL Basophils # (Auto) 0.03 K/uL RDW Standard Deviation 57.8 fL RDW Coefficient of Variation 17.1 % Immature Granulocyte % (Auto) 0.3 % Immature Granulocyte # (Auto) 0.02 K/uL Prothrombin Time 22.1 SECONDS Prothromb Time International Ratio 2.1 Sodium Level 137 mmol/L Potassium Level 4.1 mmol/L Chloride Level 101 mmol/L Carbon Dioxide Level 30 mmol/L Anion Gap 6.0 mmol/L Blood Urea Nitrogen 64 mg/dl Creatinine 1.71 mg/dl Est Creatinine Clear Calc Drug Dose 36.1 ml/min Estimated GFR () 35.0 Estimated GFR (Non- 30.2 BUN/Creatinine Ratio 37.6 Random Glucose 93 mg/dl Calcium Level 9.3 mg/dl Magnesium Level 2.8 mg/dl Test 03/26/18 11:49 Bedside Glucose 179 mg/dl
[2018-03-26] MEDS: WARFARIN SOD 6 MG TAB PO SCH (15:53)
--- NOTE | 2018-03-26 18:50 | Progress Note ---
Medicine Progress Note Date & Time of Visit: Mar 26, 2018 at 18:50. Subjective Patient reports feeling ok, she has had LE cramping today. Has been ambulating without difficulty. No overnight events noted. Tolerating PO. Denies any CP or SOB. Has no other complaints today. Objective Last 8 Hrs Date Time Temp Pulse Resp B/P (MAP) Pulse Ox O2 Delivery O2 Flow Rate FiO2 03/26/18 16:00 Room Air 03/26/18 14:55 36.5 77 20 96/54 (68) 98 Nasal Cannula 2.0 03/26/18 12:00 Room Air 03/26/18 11:36 36.3 80 20 108/69 (82) 97 Nasal Cannula 2.0 Physical Exam: GENERAL: Patient is in no acute distress. HEENT: No acute trauma, normocephalic, mucous membranes moist, no nasal congestion, no scleral icterus. NECK: No stridor, trachea is midline. LUNGS: Diminished bilateral bases, no wheeze, no rhonchi, breath sounds equal. HEART: Without murmurs gallops or rubs, regular rate and rhythm. ABDOMEN: Soft, nontender, bowel sounds positive EXTREMITIES: No cyanosis; B/L LE edema, moving all extremities without pain or difficulty, no signs for acute trauma. NEUROLOGIC: Oriented x 3, no acute motor or sensory deficits, no focal weakness. SKIN: No rash, no jaundice, no diaphoresis. Laboratory Results: Last 24 Hours Test 03/25/18 20:19 03/26/18 05:45 03/26/18 07:28 03/26/18 11:49 Bedside Glucose 131 mg/dl 112 mg/dl 179 mg/dl White Blood Count 6.23 K/uL Red Blood Count 3.71 M/uL Hemoglobin 11.1 g/dL Hematocrit 34.5 % Mean Corpuscular Volume 93.0 fL Mean Corpuscular Hemoglobin 29.9 pg Mean Corpuscular Hemoglobin Concent 32.2 g/dl Platelet Count 141 K/uL Mean Platelet Volume 9.5 fL Neutrophils (%) (Auto) 63.4 % Lymphocytes (%) (Auto) 27.3 % Monocytes (%) (Auto) 6.6 % Eosinophils (%) (Auto) 1.9 % Basophils (%) (Auto) 0.5 % Neutrophils # (Auto) 3.95 K/uL Lymphocytes # (Auto) 1.70 K/uL Monocytes # (Auto) 0.41 K/uL Eosinophils # (Auto) 0.12 K/uL Basophils # (Auto) 0.03 K/uL RDW Standard Deviation 57.8 fL RDW Coefficient of Variation 17.1 % Immature Granulocyte % (Auto) 0.3 % Immature Granulocyte # (Auto) 0.02 K/uL Prothrombin Time 22.1 SECONDS Prothromb Time International Ratio 2.1 Sodium Level 137 mmol/L Potassium Level 4.1 mmol/L Chloride Level 101 mmol/L Carbon Dioxide Level 30 mmol/L Anion Gap 6.0 mmol/L Blood Urea Nitrogen 64 mg/dl Creatinine 1.71 mg/dl Est Creatinine Clear Calc Drug Dose 36.1 ml/min Estimated GFR () 35.0 Estimated GFR (Non- 30.2 BUN/Creatinine Ratio 37.6 Random Glucose 93 mg/dl Calcium Level 9.3 mg/dl Magnesium Level 2.8 mg/dl Test 03/26/18 16:32 Bedside Glucose 88 mg/dl Assessment & Plan ACUTE EXACERBATION SUPERIMPOSED ON CHRONIC RIGHT SIDED HEART FAILURE -presented with worsening shortness of breath and LE edema -known cor pulmonale -admits to noncompliance with salt restrictions and many dietary indiscretions -previously was fairly well controlled on Lasix 60 mg p.o. b.i.d. which was changed to IV Lasix 40 b.i.d. during admission -daily weights, I's and O's -monitor in tele -Cardiology consulted, recommend continuing lasix HALI: -renal function worsening Cr 1.54-->1.7 -Cr at baseline per outpatient and inpatient labs 0.8 -likely secondary to lasix was held but then lasix continued per Cardio NUVIA: -continue CPAP q HS DM TYPE II: -continue Lantus + correction scale -hold PO medications while hospitalized -HbA1C: 8.9% ATRIAL FIBRILLATION: -continued on metoprolol and Coumadin -INR therapeutic: 2.1 -rate controlled -was given a larger dose of coumadin per Cardio HTN: -on lisinopril and metoprolol -monitor blood pressure COPD and History of mediastinal adenopathy: -follows with pulmonary -not in exacerbation Current Inpatient Medications: Current Inpatient Medications Medications (Trade) Dose Ordered Sig/Amara Route Start Time Stop Time Status Last Admin Dose Admin Acetaminophen (Tylenol Tab) 650 mg Q4H PRN PO 03/23/18 23:15 04/22/18 23:14 03/26/18 01:44 650 MG Al Hydrox/Mg Hydrox/Simethicone (Maalox Max Susp) 15 ml Q4H PRN PO 03/23/18 23:15 04/22/18 23:14 Ondansetron HCl (Zofran Inj) 4 mg Q6H PRN IV 03/23/18 23:15 04/22/18 23:14 Nitroglycerin (Nitrostat Tab) 0.4 mg UD PRN SL 03/23/18 23:15 04/22/18 23:14 Polyethylene (Miralax Powder Packet) 17 gm DAILY PRN PO 03/23/18 23:15 04/22/18 23:14 Allopurinol (Zyloprim Tab) 300 mg DAILY PO 03/24/18 09:00 04/23/18 08:59 03/26/18 07:49 300 MG Aspirin (Ecotrin Tab) 81 mg DAILY PO 03/24/18 09:00 04/23/18 08:59 03/26/18 07:50 81 MG Atorvastatin Calcium (Lipitor Tab) 80 mg QAM PO 03/24/18 09:00 04/23/18 08:59 03/26/18 07:50 80 MG Cholecalciferol (Vitamin D Tab) 2,000 inter.unit DAILY PO 03/24/18 09:00 04/23/18 08:59 03/26/18 07:50 2,000 INTER.UNIT Gabapentin (Neurontin Cap) 300 mg HS PO 03/24/18 21:00 04/23/18 20:59 03/25/18 20:55 300 MG Insulin Glargine (Lantus Solostar Pen) 30 units QAM SC 03/24/18 09:00 04/23/18 08:59 03/26/18 08:14 30 UNITS Lisinopril (Zestril Tab) 20 mg BID PO 03/24/18 09:00 04/23/18 08:59 03/26/18 07:49 20 MG Magnesium Oxide (Mag-Ox Tab) 400 mg BID PO 03/24/18 09:00 04/23/18 08:59 Future Hold 03/26/18 07:50 400 MG Metoprolol Tartrate (Lopressor Tab) 25 mg BID PO 03/24/18 09:00 04/23/18 08:59 03/26/18 07:50 25 MG Tramadol HCl (Ultram Tab) 50 mg Q6 PRN PO 03/23/18 23:15 04/22/18 23:14 Cyanocobalamin (Vitamin B-12 Tab) 1,000 mcg DAILY PO 03/24/18 09:00 04/23/18 08:59 03/26/18 07:50 1,000 MCG Insulin Aspart (novoLOG ASPART) SLIDING SCALE G... ACHS SC 03/24/18 06:30 04/23/18 06:59 03/26/18 17:12 5 UNITS Glucose (Glucose 40% Gel) 15-30 GRAMS 15 GRAMS... UD PRN PO 03/24/18 00:45 04/23/18 00:44 Glucose (Glucose Chew Tab) 4-8 Tablets 4 Tabl... UD PRN PO 03/24/18 00:45 04/23/18 00:44 Dextrose (Dextrose 50% 50ML Syringe) 25-50ML OF 50% DW IV FOR... UD PRN IV 03/24/18 00:45 04/23/18 00:44 Glucagon (Glucagon Inj) 1 mg UD PRN SQ 03/24/18 00:45 04/23/18 00:44 Warfarin Sodium (Coumadin Tab) 6 mg DAILY@1600 PO 03/25/18 16:00 04/23/18 15:59 03/26/18 15:53 6 MG Furosemide 40 mg/ Syringe 4 ml @ 4 mls/min BID17 IV 03/25/18 17:00 04/24/18 16:59 03/26/18 17:11 4 MLS/MIN
[2018-03-26] MEDS: GABAPENTIN 300 MG CAP PO SCH (20:42)
[2018-03-27] VITALS (11 sets, daily range): BP systolic 101–121; BP diastolic 59–74; PULSE 64–91; TEMP 36.3–36.7; O2SAT 91–99
[2018-03-27 05:57] LABS: HEMATOCRIT 33.3 % (37-47); HEMOGLOBIN 10.7 g/dL (12.0-16.0); MEAN CORPUSCULAR HEMOGLOBIN 29.9 pg (25-34); MEAN CORPUSCULAR HGB CONC 32.1 g/dl (32-36); MEAN PLATELET VOLUME 10.5 fL (7.4-10.4); PLATELET COUNT 145 K/uL (130-400); RED CELL DISTRIBUTION WIDTH CV 16.8 % (11.5-14.5); RED CELL DISTRIBUTION WIDTH SD 57.1 fL (36.4-46.3); WHITE BLOOD COUNT 6.19 K/uL (4.8-10.8)
[2018-03-27 06:07] LABS: INR 2.6 (0.9-1.1)
[2018-03-27 06:24] LABS: CALCIUM 9.1 mg/dl (8.5-10.1); CREATININE 2.12 mg/dl (0.60-1.20); POTASSIUM 4.3 mmol/L (3.5-5.1)
--- NOTE | 2018-03-27 07:08 | Clinical Documentation Query ---
QUERY 1 OF [address] BANKS, In your clinical opinion is this patient being managed for: ( X ) Acute on chronic right sided CHF with preserved EF ( ) Not Agree ( ) Other explanation of clinical findings (Please Explain. If no explanation given, this would be considered a no response.) ( ) Unable to determine ( ) Need to Discuss (Please call CDS via extension or qliq. If no interaction occurs this is considered a no response.) The medical record reflects the following clinical findings, treatment, and risk factors. Clinical Indicators: 67 yo female presenting with acute on chronic right sided CHF. Review of ECHO from Nov 2017 revealed an EF of 60-65% Treatment: IV lasix, I/O, daily wts, tele monitoring, O2 support, cardiology consult, zestril, lopressor Risk Factors: dietary indiscretion, HTN, DM, morbid obesity, COPD, chronic hypoxic respiratory failure QUERY 2 OF 2 In your clinical opinion is this patient being managed for: ( ) Chronic kidney disease, stage 2 ( ) Not Agree ( ) Other explanation of clinical findings (Please Explain. If no explanation given, this would be considered a no response.) ( X ) Unable to determine ( ) Need to Discuss (Please call CDS via extension or qliq. If no interaction occurs this is considered a no response.) The medical record reflects the following clinical findings, treatment, and risk factors. Clinical Indicators: Review of historical GFR showed range of 64-92.2 over the past year Treatment: monitor PRP's, treat comorbid diseases Risk Factors: chronic diastolic CHF, COPD, DM, HTN, chronic respiratory failure Please clarify and document your clinical opinion in the progress notes and discharge summary. Terms such as "probable", "suspected", "likely", "questionable", "possible", or "still to be ruled out" are acceptable. IF IN AGREEMENT, YOU MUST DOCUMENT ABOVE DIAGNOSTIC STATEMENT IN DAILY PROGRESS NOTES AND DISCHARGE SUMMARY. This document is not part of the patient's record. Thank You, Mona Holder, RN [phone]
[2018-03-27] MEDS: ASPIRIN 81 MG ECTAB PO SCH (08:31)
[2018-03-27] MEDS: METOPROLOL TARTRATE 25 MG TAB PO SCH ×2 (08:31→21:01)
[2018-03-27] MEDS: ALLOPURINOL 300 MG TAB PO SCH (08:31)
[2018-03-27] MEDS: CHOLECALCIFEROL 1000 INTER.UNIT TAB PO SCH (08:31)
[2018-03-27] MEDS: CYANOCOBALAMIN 500 MCG TAB (VIT B-12) PO SCH (08:31)
[2018-03-27] MEDS: ATORVASTATIN 40 MG TAB PO SCH (08:32)
[2018-03-27] MEDS: FUROSEMIDE INJ 40 MG in SYRINGE 0 ML IV SCH ×2 (08:32→08:41)
[2018-03-27] MEDS: LISINOPRIL 20 MG TAB PO SCH ×2 (08:32→21:01)
[2018-03-27] MEDS: INSULIN ASPART 100 UNITS/ML 3 ML PEN SC SCH ×4 (08:35→21:00)
[2018-03-27] MEDS: INSULIN GLARGINE SOLOSTAR 100 UNITS/ML 3 ML PEN SC SCH (08:36)
--- NOTE | 2018-03-27 10:07 | Cardiology Follow-Up ---
Subjective General Date of Service: Mar 27, 2018. Chief Complaint: Right heart failure Pt evaluation today including: conversation w/ patient, physical exam, chart review, lab review, review of studies, review of inpatient medication list History of Present Illness Patient seen and examined. Chart, medications, telemetry reviewed. No complaints voiced. Denies chest pain, palpitations, cough, or dyspnea. Lower extremity peripheral edema has improved but not resolved. She is anxious for discharge. Continuous telemetry monitoring reveals atrial fibrillation ranging from 70-90 bpm. No significant bradyarrhythmias or tachyarrhythmias. No periods of sinus. Allergies Coded Allergies: Penicillins (Verified Allergy, Mild, 03/23/18) Rofecoxib (Verified Allergy, Unknown, 03/23/18) Sulindac (Verified Allergy, Unknown, 03/23/18) Social History Smoking Status: Current Some Day Smoker Hx Tobacco Use In Past Year?: Yes Hx Alcohol Use - Type And Amou: Yes Hx Substance Use - Type And Am: No Problem List Medical Problems: (1) Acute coronary syndrome Status: Acute (2) Chest pain, precordial Status: Acute (3) CHF exacerbation Status: Acute (4) Pancreatitis Status: Acute Physical Exam Vital Signs Last Vital Signs Documentation Date Time Temp Pulse Resp B/P (MAP) Pulse Ox O2 Delivery O2 Flow Rate FiO2 03/27/18 08:00 98 Nasal Cannula 2.0 03/27/18 07:08 36.7 88 18 104/68 (80) Physical Exam Constitutional: Level of Distress: NAD, chronically ill Psychiatric: Mental Status: active & alert Orientation: to time, to place, to person Memory: recent memory normal, remote memory normal Head: normocephalic, atraumatic Eyes: Pupils: PERRLA Neck: supple, pertinent finding (Normal jugular venous pressure) Lungs: Auscultation: no wheezing, no rales/crackles, no rhonchi, deminished air movement, decreased breath sounds Cardiovascular: Heart Auscultation: no murmurs, no rubs, no gallops, irregular rate rhythm Peripheral Pulses: Radial Pulse: normal on the left, normal on the right Dorsalis Pedis Pulse: absent on the left, absent on the right Abdomen: Bowel Sounds: normal Inspection & Palpation: soft, no masses Extremities: no cyanosis, no clubbing, edema (2+ distal lower extremity peripheral edema) Neurologic: Cranial Nerves: grossly intact Assessment and Plan Assessment and Plan Admission to [facility] with acute decompensated right heart failure following marked dietary indiscretion. Chronic atrial fibrillation with a controlled ventricular response Chronic Coumadin anticoagulation. Moderate obstructive sleep apnea and nocturnal hypoxemia Hypertension, hypertensive heart disease Dyslipidemia RECOMMENDATIONS/PLAN: Discontinue IV Lasix. Resume oral Lasix, 60 mg twice per day. Compliance with sodium and fluid restrictions discussed. Continue metoprolol for rate control. Continue chronic Coumadin anticoagulation with an INR goal of 2.0-3.0. Patient seen and personally examined. Assessment and plan as noted above. Patient demonstrating improvement in chronic right greater than left heart failure with planned conversion to oral management. CHF instructions once again discussed Hakeem Fenotn MD Laboratory Results Last 24 Hours Test 03/26/18 11:49 03/26/18 16:32 03/26/18 20:25 03/27/18 05:14 Bedside Glucose 179 mg/dl 88 mg/dl 145 mg/dl White Blood Count 6.19 K/uL Red Blood Count 3.58 M/uL Hemoglobin 10.7 g/dL Hematocrit 33.3 % Mean Corpuscular Volume 93.0 fL Mean Corpuscular Hemoglobin 29.9 pg Mean Corpuscular Hemoglobin Concent 32.1 g/dl RDW Standard Deviation 57.1 fL RDW Coefficient of Variation 16.8 % Platelet Count 145 K/uL Mean Platelet Volume 10.5 fL Prothrombin Time 27.0 SECONDS Prothromb Time International Ratio 2.6 Sodium Level 138 mmol/L Potassium Level 4.3 mmol/L Chloride Level 101 mmol/L Carbon Dioxide Level 31 mmol/L Anion Gap 6.0 mmol/L Blood Urea Nitrogen 75 mg/dl Creatinine 2.12 mg/dl Est Creatinine Clear Calc Drug Dose 29.1 ml/min Estimated GFR () 27.0 Estimated GFR (Non- 23.3 BUN/Creatinine Ratio 35.2 Random Glucose 103 mg/dl Calcium Level 9.1 mg/dl Test 03/27/18 07:30 Bedside Glucose 127 mg/dl
[2018-03-27] MEDS: FUROSEMIDE 40 MG TAB PO SCH ×2 (11:51→15:56)
[2018-03-27] MEDS: WARFARIN SOD 6 MG TAB PO SCH (15:57)
--- NOTE | 2018-03-27 18:46 | Progress Note ---
Medicine Progress Note Date & Time of Visit: Mar 27, 2018 at 18:45. Subjective Patient is doing well, but is concerned about her renal failure. Is aware her LE edema has not completely improved. She is anxious to go home. No SOB, feels her breathing is at baseline. No overnight events noted. Tolerating PO. Has been minimally ambulatory and was encouraged to increase this. Objective Last 8 Hrs Date Time Temp Pulse Resp B/P (MAP) Pulse Ox O2 Delivery O2 Flow Rate FiO2 03/27/18 16:06 98 Nasal Cannula 2.0 03/27/18 15:41 36.4 82 20 101/68 (79) 98 03/27/18 12:00 98 Nasal Cannula 2.0 03/27/18 11:18 36.5 86 18 104/69 (81) 98 Nasal Cannula 2.0 Physical Exam: GENERAL: Patient is in no acute distress. HEENT: No acute trauma, normocephalic, mucous membranes moist, no nasal congestion, no scleral icterus. NECK: No stridor, trachea is midline. LUNGS: Diminished bilateral bases, no wheeze, no rhonchi, breath sounds equal. HEART: Without murmurs gallops or rubs, regular rate and rhythm. ABDOMEN: Soft, nontender, bowel sounds positive EXTREMITIES: No cyanosis; B/L LE edema, moving all extremities without pain or difficulty, no signs for acute trauma. NEUROLOGIC: Oriented x 3, no acute motor or sensory deficits, no focal weakness. SKIN: No rash, no jaundice, no diaphoresis. Laboratory Results: Last 24 Hours Test 03/26/18 20:25 03/27/18 05:14 03/27/18 07:30 03/27/18 11:28 Bedside Glucose 145 mg/dl 127 mg/dl 145 mg/dl White Blood Count 6.19 K/uL Red Blood Count 3.58 M/uL Hemoglobin 10.7 g/dL Hematocrit 33.3 % Mean Corpuscular Volume 93.0 fL Mean Corpuscular Hemoglobin 29.9 pg Mean Corpuscular Hemoglobin Concent 32.1 g/dl RDW Standard Deviation 57.1 fL RDW Coefficient of Variation 16.8 % Platelet Count 145 K/uL Mean Platelet Volume 10.5 fL Prothrombin Time 27.0 SECONDS Prothromb Time International Ratio 2.6 Sodium Level 138 mmol/L Potassium Level 4.3 mmol/L Chloride Level 101 mmol/L Carbon Dioxide Level 31 mmol/L Anion Gap 6.0 mmol/L Blood Urea Nitrogen 75 mg/dl Creatinine 2.12 mg/dl Est Creatinine Clear Calc Drug Dose 29.1 ml/min Estimated GFR () 27.0 Estimated GFR (Non- 23.3 BUN/Creatinine Ratio 35.2 Random Glucose 103 mg/dl Calcium Level 9.1 mg/dl Test 03/27/18 16:13 Bedside Glucose 93 mg/dl Assessment & Plan ACUTE EXACERBATION SUPERIMPOSED ON CHRONIC RIGHT SIDED HEART FAILURE -presented with worsening shortness of breath and LE edema -known cor pulmonale -admits to noncompliance with salt restrictions and many dietary indiscretions -previously was fairly well controlled on Lasix 60 mg p.o. b.i.d. which was changed to IV Lasix 40 b.i.d. during admission, now changed back to PO home dose -daily weights, I's and O's -monitor in tele -Cardiology consulted, recommend continuing lasix as PO now HALI: -renal function worsening Cr 1.54-->1.7-->2.1 -Cr at baseline per outpatient and inpatient labs 0.8 -likely secondary to lasix -if further diuresis required, consider with albumin NUVIA: -continue CPAP q HS DM TYPE II: -continue Lantus + correction scale -hold PO medications while hospitalized -HbA1C: 8.9% ATRIAL FIBRILLATION: -continued on metoprolol and Coumadin -INR therapeutic: 2.1-->2.6 -rate controlled -was given a larger dose of coumadin per Cardio HTN: -on lisinopril and metoprolol -monitor blood pressure COPD and History of mediastinal adenopathy: -follows with pulmonary -not in exacerbation Current Inpatient Medications: Current Inpatient Medications Medications (Trade) Dose Ordered Sig/Amara Route Start Time Stop Time Status Last Admin Dose Admin Acetaminophen (Tylenol Tab) 650 mg Q4H PRN PO 03/23/18 23:15 04/22/18 23:14 03/26/18 01:44 650 MG Al Hydrox/Mg Hydrox/Simethicone (Maalox Max Susp) 15 ml Q4H PRN PO 03/23/18 23:15 04/22/18 23:14 Ondansetron HCl (Zofran Inj) 4 mg Q6H PRN IV 03/23/18 23:15 5/26/18 23:14 Nitroglycerin (Nitrostat Tab) 0.4 mg UD PRN SL 03/23/18 23:15 04/22/18 23:14 Polyethylene (Miralax Powder Packet) 17 gm DAILY PRN PO 03/23/18 23:15 04/22/18 23:14 Allopurinol (Zyloprim Tab) 300 mg DAILY PO 03/24/18 09:00 04/23/18 08:59 03/27/18 08:31 300 MG Aspirin (Ecotrin Tab) 81 mg DAILY PO 03/24/18 09:00 04/23/18 08:59 03/27/18 08:31 81 MG Atorvastatin Calcium (Lipitor Tab) 80 mg QAM PO 03/24/18 09:00 04/23/18 08:59 03/27/18 08:32 80 MG Cholecalciferol (Vitamin D Tab) 2,000 inter.unit DAILY PO 03/24/18 09:00 04/23/18 08:59 03/27/18 08:31 2,000 INTER.UNIT Gabapentin (Neurontin Cap) 300 mg HS PO 03/24/18 21:00 04/23/18 20:59 03/26/18 20:42 300 MG Insulin Glargine (Lantus Solostar Pen) 30 units QAM SC 03/24/18 09:00 04/23/18 08:59 03/27/18 08:36 30 UNITS Lisinopril (Zestril Tab) 20 mg BID PO 03/24/18 09:00 04/23/18 08:59 03/27/18 08:32 20 MG Magnesium Oxide (Mag-Ox Tab) 400 mg BID PO 03/24/18 09:00 04/23/18 08:59 Future Hold 03/26/18 07:50 400 MG Metoprolol Tartrate (Lopressor Tab) 25 mg BID PO 03/24/18 09:00 04/23/18 08:59 03/27/18 08:31 25 MG Tramadol HCl (Ultram Tab) 50 mg Q6 PRN PO 03/23/18 23:15 04/22/18 23:14 Cyanocobalamin (Vitamin B-12 Tab) 1,000 mcg DAILY PO 03/24/18 09:00 04/23/18 08:59 03/27/18 08:31 1,000 MCG Insulin Aspart (novoLOG ASPART) SLIDING SCALE G... ACHS SC 03/24/18 06:30 04/23/18 06:59 03/27/18 17:36 4 UNITS Glucose (Glucose 40% Gel) 15-30 GRAMS 15 GRAMS... UD PRN PO 03/24/18 00:45 04/23/18 00:44 Glucose (Glucose Chew Tab) 4-8 Tablets 4 Tabl... UD PRN PO 03/24/18 00:45 04/23/18 00:44 Dextrose (Dextrose 50% 50ML Syringe) 25-50ML OF 50% DW IV FOR... UD PRN IV 03/24/18 00:45 04/23/18 00:44 Glucagon (Glucagon Inj) 1 mg UD PRN SQ 03/24/18 00:45 04/23/18 00:44 Warfarin Sodium (Coumadin Tab) 6 mg DAILY@1600 PO 03/25/18 16:00 04/23/18 15:59 03/27/18 15:57 6 MG Furosemide (Lasix Tab) 60 mg BID17 PO 03/27/18 10:30 04/26/18 10:29 03/27/18 15:56 60 MG
[2018-03-27] MEDS: GABAPENTIN 300 MG CAP PO SCH (21:01)
[2018-03-28 04:11] LABS: HEMOGLOBIN 10.8 g/dL (12.0-16.0); MEAN CELL VOLUME 93.2 fL (80-100); MEAN CORPUSCULAR HEMOGLOBIN 29.6 pg (25-34); MEAN CORPUSCULAR HGB CONC 31.8 g/dl (32-36); MEAN PLATELET VOLUME 9.3 fL (7.4-10.4); PLATELET COUNT 135 K/uL (130-400); RED CELL DISTRIBUTION WIDTH CV 16.5 % (11.5-14.5); RED CELL DISTRIBUTION WIDTH SD 56.4 fL (36.4-46.3); WHITE BLOOD COUNT 5.26 K/uL (4.8-10.8)
[2018-03-28 04:18] VITALS: BP 104/62; PULSE 99; TEMP 36.4; O2SAT 95
[2018-03-28 04:25] LABS: INR 2.7 (0.9-1.1)
[2018-03-28 04:37] LABS: CALCIUM 9.1 mg/dl (8.5-10.1); CREATININE 2.04 mg/dl (0.60-1.20); POTASSIUM 4.3 mmol/L (3.5-5.1)
[2018-03-28 07:22] VITALS: BP 101/60; PULSE 90; TEMP 36.5; O2SAT 100
[2018-03-28] MEDS: LISINOPRIL 20 MG TAB PO SCH (08:12)
[2018-03-28] MEDS: ATORVASTATIN 40 MG TAB PO SCH (08:12)
[2018-03-28] MEDS: ALLOPURINOL 300 MG TAB PO SCH (08:12)
[2018-03-28] MEDS: CHOLECALCIFEROL 1000 INTER.UNIT TAB PO SCH (08:12)
[2018-03-28] MEDS: METOPROLOL TARTRATE 25 MG TAB PO SCH (08:13)
[2018-03-28] MEDS: FUROSEMIDE 40 MG TAB PO SCH (08:13)
[2018-03-28] MEDS: CYANOCOBALAMIN 500 MCG TAB (VIT B-12) PO SCH (08:14)
[2018-03-28] MEDS: ASPIRIN 81 MG ECTAB PO SCH (08:14)
[2018-03-28] MEDS: INSULIN ASPART 100 UNITS/ML 3 ML PEN SC SCH ×2 (08:20→12:21)
[2018-03-28] MEDS: INSULIN GLARGINE SOLOSTAR 100 UNITS/ML 3 ML PEN SC SCH (08:20)
--- NOTE | 2018-03-28 09:07 | Cardiology Follow-Up ---
Subjective General Date of Service: March 28, 2018. Chief Complaint: Right heart failure Pt evaluation today including: conversation w/ patient, physical exam, chart review, lab review, review of studies, review of inpatient medication list History of Present Illness Patient seen and examined. Chart, medications, telemetry reviewed. No complaints voiced. Peripheral edema has improved. She denies chest pain, palpitations, cough, or dyspnea. Continuous telemetry monitoring reveals atrial fibrillation ranging from 70-90 bpm range. Overall, rates are controlled. No significant bradyarrhythmias or tachyarrhythmias. Allergies Coded Allergies: Penicillins (Verified Allergy, Mild, 03/23/18) Rofecoxib (Verified Allergy, Unknown, 03/23/18) Sulindac (Verified Allergy, Unknown, 03/23/18) Social History Smoking Status: Current Some Day Smoker Hx Tobacco Use In Past Year?: Yes Hx Alcohol Use - Type And Amou: Yes Hx Substance Use - Type And Am: No Problem List Medical Problems: (1) Acute coronary syndrome Status: Acute (2) Chest pain, precordial Status: Acute (3) CHF exacerbation Status: Acute (4) Pancreatitis Status: Acute Physical Exam Vital Signs Last Vital Signs Documentation Date Time Temp Pulse Resp B/P (MAP) Pulse Ox O2 Delivery O2 Flow Rate FiO2 03/28/18 07:22 36.5 90 20 101/60 (74) 100 Nasal Cannula 2.0 Physical Exam Constitutional: Level of Distress: NAD, chronically ill Psychiatric: Mental Status: active & alert Orientation: to time, to place, to person Memory: recent memory normal, remote memory normal Head: normocephalic, atraumatic Eyes: Pupils: PERRLA Neck: supple, pertinent finding (Normal JVP) Lungs: Auscultation: no wheezing, no rales/crackles, no rhonchi, deminished air movement, decreased breath sounds Cardiovascular: Heart Auscultation: no murmurs, no rubs, no gallops, irregular rate rhythm Peripheral Pulses: Radial Pulse: normal on the left, normal on the right Dorsalis Pedis Pulse: absent on the left, absent on the right Abdomen: Bowel Sounds: normal Inspection & Palpation: soft, no masses Extremities: no cyanosis, no clubbing, edema (1-2+ distal lower extremity peripheral edema) Neurologic: Cranial Nerves: grossly intact Assessment and Plan Assessment and Plan Admission to [facility] with acute decompensated right heart failure following marked dietary indiscretion. Chronic atrial fibrillation with a controlled ventricular response Chronic Coumadin anticoagulation. Moderate obstructive sleep apnea and nocturnal hypoxemia Hypertension, hypertensive heart disease Dyslipidemia RECOMMENDATIONS/PLAN: Continue current medications as prescribed. Compliance with sodium and fluid restrictions discussed. Continue metoprolol for rate control. Continue chronic Coumadin anticoagulation with an INR goal of 2.0-3.0. Outpatient cardiology follow-up at [facility] in 1-2 weeks. Patient was seen and personally examined. Physical examination demonstrates persistent improvement volume overload. She is tolerating current medical therapies well and anticipates discharge later today. CHF instructions dietary and sodium restrictions reemphasized Hakeem Fenton MD Laboratory Results Last 24 Hours Test 03/27/18 11:28 03/27/18 16:13 03/27/18 20:47 03/28/18 04:00 Bedside Glucose 145 mg/dl 93 mg/dl 106 mg/dl White Blood Count 5.26 K/uL Red Blood Count 3.65 M/uL Hemoglobin 10.8 g/dL Hematocrit 34.0 % Mean Corpuscular Volume 93.2 fL Mean Corpuscular Hemoglobin 29.6 pg Mean Corpuscular Hemoglobin Concent 31.8 g/dl RDW Standard Deviation 56.4 fL RDW Coefficient of Variation 16.5 % Platelet Count 135 K/uL Mean Platelet Volume 9.3 fL Prothrombin Time 28.1 SECONDS Prothromb Time International Ratio 2.7 Sodium Level 138 mmol/L Potassium Level 4.3 mmol/L Chloride Level 101 mmol/L Carbon Dioxide Level 31 mmol/L Anion Gap 6.0 mmol/L Blood Urea Nitrogen 83 mg/dl Creatinine 2.04 mg/dl Est Creatinine Clear Calc Drug Dose 30.3 ml/min Estimated GFR () 28.3 Estimated GFR (Non- 24.4 BUN/Creatinine Ratio 40.8 Random Glucose 111 mg/dl Calcium Level 9.1 mg/dl
[2018-03-28 11:22] VITALS: BP 100/63; PULSE 78; TEMP 36.9; O2SAT 99
--- NOTE | 2018-03-28 12:50 | Progress Note ---
Medicine Progress Note Date & Time of Visit: March 28, 2018 at 12:33. Subjective seen resting in bedside chair comfortable states she feels fine overall denies chest pain, dyspnea, palpitations, dizziness ambulating with no problems states she is back to baseline denies other symptoms states she is ready and would like to be discharged today Objective Last 8 Hrs Date Time Temp Pulse Resp B/P (MAP) Pulse Ox O2 Delivery O2 Flow Rate FiO2 03/28/18 11:22 36.9 78 18 100/63 (75) 99 2.0 03/28/18 08:00 Nasal Cannula 2.0 03/28/18 07:22 36.5 90 20 101/60 (74) 100 Nasal Cannula 2.0 Physical Exam: General- oriented x 3, not in distress, speaks in sentences with no effort Head- atraumatic Eyes- PERRL, EOMI, anicteric ENT- oropharynx clear Neck- supple, no JVD, no adenopathy, no thyromegaly Lungs- clear breath sounds bilaterally Heart- regular rhythm; no murmur, normal rate Abdomen- normal bowel sounds, soft, nontender Extremities- mild pretibial edema, no calf tenderness; peripheral pulses intact Neuro- alert, oriented x 3; no gross focal deficits Skin- warm & dry Laboratory Results: Last 24 Hours Test 03/27/18 16:13 03/27/18 20:47 03/28/18 04:00 03/28/18 07:28 Bedside Glucose 93 mg/dl 106 mg/dl 130 mg/dl White Blood Count 5.26 K/uL Red Blood Count 3.65 M/uL Hemoglobin 10.8 g/dL Hematocrit 34.0 % Mean Corpuscular Volume 93.2 fL Mean Corpuscular Hemoglobin 29.6 pg Mean Corpuscular Hemoglobin Concent 31.8 g/dl RDW Standard Deviation 56.4 fL RDW Coefficient of Variation 16.5 % Platelet Count 135 K/uL Mean Platelet Volume 9.3 fL Prothrombin Time 28.1 SECONDS Prothromb Time International Ratio 2.7 Sodium Level 138 mmol/L Potassium Level 4.3 mmol/L Chloride Level 101 mmol/L Carbon Dioxide Level 31 mmol/L Anion Gap 6.0 mmol/L Blood Urea Nitrogen 83 mg/dl Creatinine 2.04 mg/dl Est Creatinine Clear Calc Drug Dose 30.3 ml/min Estimated GFR () 28.3 Estimated GFR (Non- 24.4 BUN/Creatinine Ratio 40.8 Random Glucose 111 mg/dl Calcium Level 9.1 mg/dl Assessment & Plan ACUTE EXACERBATION SUPERIMPOSED ON CHRONIC RIGHT SIDED HEART FAILURE SECONDARY TO DIETARY INDISCRETION -presented with worsening shortness of breath and LE edema -admits to noncompliance with salt restrictions and many dietary indiscretions -Shank Faker consutled, given IV Lasix 40 b.i.d. during admission diuresed well - now changed back to PO home dose - emphasized strict adherence to dietary and fluid restrictions patient verbalized understanding - ff up with Shank Faker in 1-2 weeks ACUTE KIDNEY INJURY -renal function worsening Cr 1.54-->1.7-->2.1 -Cr at baseline per outpatient and inpatient labs 0.8 -likely secondary to lasix Iv - crea 2.0 on discharge Cardiology recommends to continue usual Lasix 40mg po BID - monitor crea on ff up with PCP this week NUVIA: -continue CPAP q HS DM TYPE II: - HOLD Metformin and Repaglinide for now due to elevated crea of 2.0 ff up with PCP and resume when renal function improves - continue usual Insulin ATRIAL FIBRILLATION: -continued on metoprolol and Coumadin -INR therapeutic: 2.1-->2.7 HTN: HOLD Lisinopril in light of elevated crea continue metoprolol -monitor blood pressure and resume Lisinopril accordingly COPD and History of mediastinal adenopathy: -follows with pulmonary -not in exacerbation Disposition d/c home with home health today ff up with PCP in 3-5 days ff up with Cardiology in 1-2 weeks Current Inpatient Medications: Current Inpatient Medications Medications (Trade) Dose Ordered Sig/Amara Route Start Time Stop Time Status Last Admin Dose Admin Acetaminophen (Tylenol Tab) 650 mg Q4H PRN PO 03/23/18 23:15 04/22/18 23:14 03/26/18 01:44 650 MG Al Hydrox/Mg Hydrox/Simethicone (Maalox Max Susp) 15 ml Q4H PRN PO 03/23/18 23:15 04/22/18 23:14 Ondansetron HCl (Zofran Inj) 4 mg Q6H PRN IV 03/23/18 23:15 04/22/18 23:14 Nitroglycerin (Nitrostat Tab) 0.4 mg UD PRN SL 03/23/18 23:15 04/22/18 23:14 Polyethylene (Miralax Powder Packet) 17 gm DAILY PRN PO 03/23/18 23:15 04/22/18 23:14 Allopurinol (Zyloprim Tab) 300 mg DAILY PO 03/24/18 09:00 04/23/18 08:59 03/28/18 08:12 300 MG Aspirin (Ecotrin Tab) 81 mg DAILY PO 03/24/18 09:00 04/23/18 08:59 03/28/18 08:14 81 MG Atorvastatin Calcium (Lipitor Tab) 80 mg QAM PO 03/24/18 09:00 04/23/18 08:59 03/28/18 08:12 80 MG Cholecalciferol (Vitamin D Tab) 2,000 inter.unit DAILY PO 03/24/18 09:00 04/23/18 08:59 03/28/18 08:12 2,000 INTER.UNIT Gabapentin (Neurontin Cap) 300 mg HS PO 03/24/18 21:00 04/23/18 20:59 03/27/18 21:01 300 MG Insulin Glargine (Lantus Solostar Pen) 30 units QAM SC 03/24/18 09:00 04/23/18 08:59 03/28/18 08:20 30 UNITS Lisinopril (Zestril Tab) 20 mg BID PO 03/24/18 09:00 04/23/18 08:59 03/28/18 08:12 20 MG Magnesium Oxide (Mag-Ox Tab) 400 mg BID PO 03/24/18 09:00 04/23/18 08:59 Future Hold 03/26/18 07:50 400 MG Metoprolol Tartrate (Lopressor Tab) 25 mg BID PO 03/24/18 09:00 04/23/18 08:59 03/28/18 08:13 25 MG Tramadol HCl (Ultram Tab) 50 mg Q6 PRN PO 03/23/18 23:15 04/22/18 23:14 Cyanocobalamin (Vitamin B-12 Tab) 1,000 mcg DAILY PO 03/24/18 09:00 04/23/18 08:59 03/28/18 08:14 1,000 MCG Insulin Aspart (novoLOG ASPART) SLIDING SCALE G... ACHS SC 03/24/18 06:30 04/23/18 06:59 03/28/18 12:21 4 UNITS Glucose (Glucose 40% Gel) 15-30 GRAMS 15 GRAMS... UD PRN PO 03/24/18 00:45 04/23/18 00:44 Glucose (Glucose Chew Tab) 4-8 Tablets 4 Tabl... UD PRN PO 03/24/18 00:45 04/23/18 00:44 Dextrose (Dextrose 50% 50ML Syringe) 25-50ML OF 50% DW IV FOR... UD PRN IV 03/24/18 00:45 04/23/18 00:44 Glucagon (Glucagon Inj) 1 mg UD PRN SQ 03/24/18 00:45 04/23/18 00:44 Warfarin Sodium (Coumadin Tab) 6 mg DAILY@1600 PO 03/25/18 16:00 04/23/18 15:59 03/27/18 15:57 6 MG Furosemide (Lasix Tab) 60 mg BID17 PO 03/27/18 10:30 04/26/18 10:29 03/28/18 08:13 60 MG
--- NOTE | 2018-03-28 13:03 | Discharge Instructions ---
Discharge Instructions Date of Service March 28, 2018. Admission Reason for Admission: Chf Exacerbation Discharge Discharge Diagnosis / Problem: ACUTE CHF EXACERBATION Discharge Goals Goal(s): Diagnostic testing, Therapeutic intervention Activity Recommendations Activity Limitations: as noted below (NO HEAVY EXERTION UNTIL RE-EVALUATED BY PRIMARY CARE PHYSICIAN) Lifting Limitations: until after follow-up appointment Exercise/Sports Limitations: until after follow-up appointment Driving or Machine Use: NO DRIVING UNTIL RE-EVALUATED BY PRIMARY CARE PHYSICIAN . Instructions / Follow-Up Instructions / Follow-Up PLEASE REVIEW YOUR NEW MEDICATION LIST AND FOLLOW INSTRUCTIONS CAREFULLY. SEVERAL MEDICATIONS INCLUDING METFORMIN, REPAGLINIDE, LISINOPRIL, MAGNESIUM ARE ON HOLD UNTIL RE-EVALUATED BY PRIMARY CARE PHYSICIAN. CALL YOUR DOCTOR OR RETURN TO ER IMMEDIATELY IF WITH SHORTNESS OF BREATH, INCREASING LEG SWELLING, RECURRENCE OF SYMPTOMS. FOLLOW UP WITH DR. CAPELLAN ON FRIDAY MARCH 30, 2018 AT 11:05 AM. FOLLOW UP WITH BINDER TECHNICIAN IN 1-2 WEEKS. THE CLINIC WILL BE CALLING YOU FOR AN APPOINTMENT. Call your Primary Care doctor if any of the following symptoms or problems start or get worse: * Shortness of breath or difficulty breathing * Wake up at night short of breath * Chest pain * Cough * Swelling of your hands, feet, or legs * More fatigued or tired with your normal activity * Palpitations - sudden fast heart beats WEIGHT * Weigh yourself every morning after using the bathroom. * Use the same scale. * Wear the same amount of clothing. * Write your weight down on a chart. * Call your Primary Care doctor if you gain more than 2-3 pounds in 1-2 days. MEDICATIONS * Use this discharge instruction sheet for medication instructions. * Take your medications at the time your doctor ordered. * Do not skip a dose of your medicines. * If you miss a dose of medicine, take it as soon as possible, but DO NOT DOUBLE A DOSE. * Read your medicine information when you get home. * Know all of the side effects of your medicine. If in doubt, ask your pharmacist * Call your Primary Care doctor's office if you have any side effects. * Be sure all of your doctors know what medicine and herbs you take (including cold, flu, and herbal medicine). Take the following with you to your follow-up doctor appointments: * Weight Chart * Medication List * List of questions Do not drink excessive alcohol, beer or wine. Current Hospital Diet Patient's current hospital diet: AHA Diet (Heart Healthy), Diabetes Type 2 Diet Discharge Diet Recommended Diet: AHA Diet (Heart Healthy), Diabetes Type 2 Diet Fluid Restriction: 1500 ml (6 cups) Procedures Procedures Performed: CHEST XRAY, ULTRASOUND OF THE LEGS Pending Studies Studies pending at discharge: yes List of pending studies: REPEAT BLOOD WORK C/O PRIMARY CARE PHYSICIAN Laboratory Results Hemoglobin A1c Test 03/24/18 06:52 Range/Units Estimated Average Glucose 209 mg/dl Hemoglobin A1c 8.9 H 4.5-5.6 % Medical Emergencies . Who to Call and When: Call 911 or go to the Emergency Room if: * If at any time you feel your situation is an emergency * You have tightness or pain in your chest that does not go away with rest or Nitroglycerin * You are very short of breath even with rest . Non-Emergent Contact Non-Emergency issues call your: Primary Care Provider, Director Equipment Call Non-Emergent contact if: you have a fever, you have any medication questions . . "Provider Documentation" section prepared by Juanito Price. .
--- NOTE | 2018-03-28 13:04 | Progress Note ---
Medicine Progress Note Date & Time of Visit: March 28, 2018 at 13:04. Objective Last 8 Hrs Date Time Temp Pulse Resp B/P (MAP) Pulse Ox O2 Delivery O2 Flow Rate FiO2 03/28/18 12:00 Nasal Cannula 2.0 03/28/18 11:22 36.9 78 18 100/63 (75) 99 2.0 03/28/18 08:00 Nasal Cannula 2.0 03/28/18 07:22 36.5 90 20 101/60 (74) 100 Nasal Cannula 2.0 Physical Exam: General- oriented x 3, not in distress, speaks in sentences with no effort Head- atraumatic Eyes- PERRL, EOMI, anicteric ENT- oropharynx clear Neck- supple, no JVD, no adenopathy, no thyromegaly Lungs- clear breath sounds bilaterally Heart- regular rhythm; no murmur, normal rate Abdomen- normal bowel sounds, soft, nontender Extremities- mild pretibial edema, no calf tenderness; peripheral pulses intact Neuro- alert, oriented x 3; no gross focal deficits Skin- warm & dry Laboratory Results: Last 24 Hours Test 03/27/18 16:13 03/27/18 20:47 03/28/18 04:00 03/28/18 07:28 Bedside Glucose 93 mg/dl 106 mg/dl 130 mg/dl White Blood Count 5.26 K/uL Red Blood Count 3.65 M/uL Hemoglobin 10.8 g/dL Hematocrit 34.0 % Mean Corpuscular Volume 93.2 fL Mean Corpuscular Hemoglobin 29.6 pg Mean Corpuscular Hemoglobin Concent 31.8 g/dl RDW Standard Deviation 56.4 fL RDW Coefficient of Variation 16.5 % Platelet Count 135 K/uL Mean Platelet Volume 9.3 fL Prothrombin Time 28.1 SECONDS Prothromb Time International Ratio 2.7 Sodium Level 138 mmol/L Potassium Level 4.3 mmol/L Chloride Level 101 mmol/L Carbon Dioxide Level 31 mmol/L Anion Gap 6.0 mmol/L Blood Urea Nitrogen 83 mg/dl Creatinine 2.04 mg/dl Est Creatinine Clear Calc Drug Dose 30.3 ml/min Estimated GFR () 28.3 Estimated GFR (Non- 24.4 BUN/Creatinine Ratio 40.8 Random Glucose 111 mg/dl Calcium Level 9.1 mg/dl Test 03/28/18 11:27 Bedside Glucose 146 mg/dl Assessment & Plan ACUTE EXACERBATION SUPERIMPOSED ON CHRONIC RIGHT SIDED HEART FAILURE SECONDARY TO DIETARY INDISCRETION -presented with worsening shortness of breath and LE edema -admits to noncompliance with salt restrictions and many dietary indiscretions -Board Machine Set Up Operator consutled, given IV Lasix 40 b.i.d. during admission diuresed well - now changed back to PO home dose - emphasized strict adherence to dietary and fluid restrictions patient verbalized understanding - ff up with Board Machine Set Up Operator in 1-2 weeks ACUTE KIDNEY INJURY -renal function worsening Cr 1.54-->1.7-->2.1 -Cr at baseline per outpatient and inpatient labs 0.8 -likely secondary to lasix Iv - crea 2.0 on discharge Cardiology recommends to continue usual Lasix 40mg po BID - monitor crea on ff up with PCP this week NUVIA: -continue CPAP q HS DM TYPE II: - HOLD Metformin and Repaglinide for now due to elevated crea of 2.0 ff up with PCP and resume when renal function improves - continue usual Insulin ATRIAL FIBRILLATION: -continued on metoprolol and Coumadin -INR therapeutic: 2.1-->2.7 HTN: HOLD Lisinopril in light of elevated crea continue metoprolol -monitor blood pressure and resume Lisinopril accordingly COPD and History of mediastinal adenopathy: -follows with pulmonary -not in exacerbation Disposition d/c home with home health today ff up with PCP in 3-5 days ff up with Cardiology in 1-2 weeks Current Inpatient Medications: Current Inpatient Medications Medications (Trade) Dose Ordered Sig/Amara Route Start Time Stop Time Status Last Admin Dose Admin Acetaminophen (Tylenol Tab) 650 mg Q4H PRN PO 03/23/18 23:15 04/22/18 23:14 03/26/18 01:44 650 MG Al Hydrox/Mg Hydrox/Simethicone (Maalox Max Susp) 15 ml Q4H PRN PO 03/23/18 23:15 04/22/18 23:14 Ondansetron HCl (Zofran Inj) 4 mg Q6H PRN IV 03/23/18 23:15 04/22/18 23:14 Nitroglycerin (Nitrostat Tab) 0.4 mg UD PRN SL 03/23/18 23:15 04/22/18 23:14 Polyethylene (Miralax Powder Packet) 17 gm DAILY PRN PO 03/23/18 23:15 04/22/18 23:14 Allopurinol (Zyloprim Tab) 300 mg DAILY PO 03/24/18 09:00 04/23/18 08:59 03/28/18 08:12 300 MG Aspirin (Ecotrin Tab) 81 mg DAILY PO 03/24/18 09:00 04/23/18 08:59 03/28/18 08:14 81 MG Atorvastatin Calcium (Lipitor Tab) 80 mg QAM PO 03/24/18 09:00 04/23/18 08:59 03/28/18 08:12 80 MG Cholecalciferol (Vitamin D Tab) 2,000 inter.unit DAILY PO 03/24/18 09:00 04/23/18 08:59 03/28/18 08:12 2,000 INTER.UNIT Gabapentin (Neurontin Cap) 300 mg HS PO 03/24/18 21:00 04/23/18 20:59 03/27/18 21:01 300 MG Insulin Glargine (Lantus Solostar Pen) 30 units QAM SC 03/24/18 09:00 04/23/18 08:59 03/28/18 08:20 30 UNITS Lisinopril (Zestril Tab) 20 mg BID PO 03/24/18 09:00 04/23/18 08:59 03/28/18 08:12 20 MG Magnesium Oxide (Mag-Ox Tab) 400 mg BID PO 03/24/18 09:00 04/23/18 08:59 Future Hold 03/26/18 07:50 400 MG Metoprolol Tartrate (Lopressor Tab) 25 mg BID PO 03/24/18 09:00 04/23/18 08:59 03/28/18 08:13 25 MG Tramadol HCl (Ultram Tab) 50 mg Q6 PRN PO 03/23/18 23:15 04/22/18 23:14 Cyanocobalamin (Vitamin B-12 Tab) 1,000 mcg DAILY PO 03/24/18 09:00 04/23/18 08:59 03/28/18 08:14 1,000 MCG Insulin Aspart (novoLOG ASPART) SLIDING SCALE G... ACHS SC 03/24/18 06:30 04/23/18 06:59 03/28/18 12:21 4 UNITS Glucose (Glucose 40% Gel) 15-30 GRAMS 15 GRAMS... UD PRN PO 03/24/18 00:45 04/23/18 00:44 Glucose (Glucose Chew Tab) 4-8 Tablets 4 Tabl... UD PRN PO 03/24/18 00:45 04/23/18 00:44 Dextrose (Dextrose 50% 50ML Syringe) 25-50ML OF 50% DW IV FOR... UD PRN IV 03/24/18 00:45 04/23/18 00:44 Glucagon (Glucagon Inj) 1 mg UD PRN SQ 03/24/18 00:45 04/23/18 00:44 Warfarin Sodium (Coumadin Tab) 6 mg DAILY@1600 PO 03/25/18 16:00 04/23/18 15:59 03/27/18 15:57 6 MG Furosemide (Lasix Tab) 60 mg BID17 PO 03/27/18 10:30 04/26/18 10:29 03/28/18 08:13 60 MG
[2018-03-28 13:15] VITALS: BP 100/63; PULSE 78; TEMP 36.9; O2SAT 99
--- NOTE | 2018-03-29 18:56 | Discharge Summary ---
Discharge Summary Date of Service March 29, 2018. Discharge Summary Admission Date: Mar 23, 2018 at 23:21 Discharge Date: March 28, 2018 Discharge Disposition: Home with services Principal Diagnosis: ACUTE EXACERBATION SUPERIMPOSED ON CHRONIC RIGHT SIDED HEART FAILURE SECONDARY TO DIETARY INDISCRETION Secondary Diagnoses/Problems: Please refer to hospital course below. Procedures: VENOUS DOPPLER LWR EXT BILA HISTORY: Pain. Edema. Pt c/o B/l extrmity pain COMPARISON STUDY: None. FINDINGS: There is normal compressibility, flow, and augmentation within the bilateral lower extremity deep venous systems. IMPRESSION: No DVT within the right or left lower extremity. CHEST ONE VIEW PORTABLE CLINICAL HISTORY: Pt c/o SOB dyspnea COMPARISON STUDY: 01/03/2018 FINDINGS: Moderate cardiomegaly. Moderate prominence of the pulmonary vasculature. Diaphragms smooth. Costophrenic angles are sharp. IMPRESSION: Mild congestive heart failure Consultations: Cardiology Pending Studies/Follow-Up: Repeat PRP including BUN/crea on ff up with PCP 03/30/18; Please refer to hospital course below. Medication Reconciliation Continued Medications: Allopurinol (Allopurinol) 300 Mg Tab 300 MG PO DAILY Aspirin (Aspirin EC Low Dose) 81 Mg Ectab 81 MG PO DAILY Atorvastatin (Lipitor) 40 Mg Tab 80 MG PO QAM for 30 Days, #60 TABS 2 Refills Cholecalciferol (Vitamin D3) 1,000 Unit Tab 2000 UNITS PO DAILY Cyanocobalamin (Vitamin B12) 1,000 Mcg Tab 1000 MCG PO DAILY Furosemide (Furosemide) 20 Mg Tab 60 MG PO BID17 for 30 Days, #180 TAB 2 Refills Gabapentin (Neurontin) 100 Mg Cap 300 MG PO HS, CAP Insulin Glargine (Lantus Solostar) 100 Unit/Ml Inj 38 SC QAM, PEN Metoprolol Tartrate (Lopressor) (Lopressor) 50 Mg Tab 25 MG PO BID for 30 Days, #30 TAB 2 Refills Nitroglycerin (Nitrostat) 0.4 Mg Tab 0.4 MG UT PRN, 0 Refills NEEDED FOR CHEST PAIN ; ONE TABLET UNDER THE TONGUE EVERY 5 MINUTES, UP TO 3 DOSES. Tramadol (Ultram) 50 Mg Tab 50 MG PO Q6 PRN for Pain Warfarin Sod (Jantoven) 3 Mg Tab 6 MG PO DAILY, #20 TAB Discontinued Medications: Lisinopril (Lisinopril) 20 Mg Tab 20 MG PO BID for 30 Days, #60 TAB 2 Refills Magnesium Oxide (Mag-Ox) 400 Mg Tab 400 MG PO BID, TAB Metformin Hcl (Glucophage) 500 Mg Tab 1000 MG PO BID, TAB 2 TABLETS WITH BREAKFAST AND HS Repaglinide (Repaglinide) 2 Mg Tab 4 MG PO AC Admission Information HPI (per Admitting provider): CHIEF COMPLAINT: Shortness of breath. HISTORY OF PRESENT ILLNESS: A 67-year-old female with past medical history significant for CAD, GERD, type 2 diabetes, gout, hypertension, obstructive sleep apnea on CPAP, hyperlipidemia, history of chronic atrial fibrillation, chronic right-sided heart failure, chronic hypoxemic respiratory failure, presents with shortness of breath. Patient states since last 2-3 days, she is getting more short of breath than is usual and she does agree that she was noncompliant with her salt restriction. She was eating outside at [facility]. She also states her lower extremity edema might have increased a little bit. She is taking her meds daily. Currently in the ER, with the IV Lasix she is feeling better. Denies any orthopnea or paroxysmal nocturnal dyspnea. Denies any dizziness or headaches. She was a little blurred vision in the morning. No earache, no runny nose, no sore throat, no difficulty swallowing. Appetite is okay. No cough, no fever, no chills, no nausea, no vomiting, no abdominal pain. Normal bowel and bladder movements. Ambulates with help of cane. She lives alone. No skin rash. Currently, resting comfortably and hemodynamically stable. Physical Exam (per Admitting): GENERAL: Patient is obese, not in distress. VITAL SIGNS: Temperature 36.8, pulse 95, respiratory rate 18, blood pressure 143/80, and oxygen 95% on 2 liters. HEENT: No pallor, no icterus. Pupils equal, round, and reactive to light. NECK: No JVD, no neck masses, no carotid bruits. CARDIOVASCULAR: S1, S2 heard, regular rate and rhythm, no murmur, no gallop. RESPIRATORY SYSTEM: Normal AP diameter. No accessory muscle use. Mild bibasilar crackles. No wheezing. ABDOMEN: Soft, bowel sounds present. Nontender. No distention. CENTRAL NERVOUS SYSTEM: Cranial nerves II through XII grossly intact. Nonfocal. EXTREMITIES: Bilateral lower extremities, +2 pedal edema present. Mild erythema. No tenderness. Hospital Course ACUTE EXACERBATION OF CHRONIC RIGHT SIDED HEART FAILURE WITH PRESERVED EJECTION FRACTION SECONDARY TO DIETARY INDISCRETION -presented with worsening shortness of breath and LE edema -admits to noncompliance with salt restrictions and many dietary indiscretions -Molten Iron Pourer consutled, given IV Lasix 40 b.i.d. during admission diuresed well - now changed back to PO home dose - emphasized strict adherence to dietary and fluid restrictions patient verbalized understanding - ff up with Molten Iron Pourer in 1-2 weeks ACUTE KIDNEY INJURY -renal function worsening Cr 1.54-->1.7-->2.1 -Cr at baseline per outpatient and inpatient labs 0.8 -likely secondary to lasix Iv - crea 2.0 on discharge Cardiology recommends to continue usual Lasix 40mg po BID - monitor crea on ff up with PCP this week NUVIA: -continue CPAP q HS DM TYPE II: - HOLD Metformin and Repaglinide for now due to elevated crea of 2.0 ff up with PCP and resume when renal function improves - continue usual Insulin ATRIAL FIBRILLATION: -continued on metoprolol and Coumadin -INR therapeutic: 2.1-->2.7 HTN: HOLD Lisinopril in light of elevated crea continue metoprolol -monitor blood pressure and resume Lisinopril accordingly COPD and History of mediastinal adenopathy: -follows with pulmonary -not in exacerbation Disposition d/c home with home health ff up with PCP in 3-5 days ff up with Cardiology in 1-2 weeks Total time spent on discharge = 40 minutes This includes examination of the patient, discharge planning, medication reconciliation, and communication with other providers. Discharge Instructions Discharge Instructions Date of Service March 28, 2018. Admission Reason for Admission: Chf Exacerbation Discharge Discharge Diagnosis / Problem: ACUTE CHF EXACERBATION Discharge Goals Goal(s): Diagnostic testing, Therapeutic intervention Activity Recommendations Activity Limitations: as noted below (NO HEAVY EXERTION UNTIL RE-EVALUATED BY PRIMARY CARE PHYSICIAN) Lifting Limitations: until after follow-up appointment Exercise/Sports Limitations: until after follow-up appointment Driving or Machine Use: NO DRIVING UNTIL RE-EVALUATED BY PRIMARY CARE PHYSICIAN . Instructions / Follow-Up Instructions / Follow-Up PLEASE REVIEW YOUR NEW MEDICATION LIST AND FOLLOW INSTRUCTIONS CAREFULLY. SEVERAL MEDICATIONS INCLUDING METFORMIN, REPAGLINIDE, LISINOPRIL, MAGNESIUM ARE ON HOLD UNTIL RE-EVALUATED BY PRIMARY CARE PHYSICIAN. CALL YOUR DOCTOR OR RETURN TO ER IMMEDIATELY IF WITH SHORTNESS OF BREATH, INCREASING LEG SWELLING, RECURRENCE OF SYMPTOMS. FOLLOW UP WITH DR. CAPELLAN ON FRIDAY MARCH 30, 2018 AT 11:05 AM. FOLLOW UP WITH SWITCHING CLERK IN 1-2 WEEKS. THE CLINIC WILL BE CALLING YOU FOR AN APPOINTMENT. Call your Primary Care doctor if any of the following symptoms or problems start or get worse: * Shortness of breath or difficulty breathing * Wake up at night short of breath * Chest pain * Cough * Swelling of your hands, feet, or legs * More fatigued or tired with your normal activity * Palpitations - sudden fast heart beats WEIGHT * Weigh yourself every morning after using the bathroom. * Use the same scale. * Wear the same amount of clothing. * Write your weight down on a chart. * Call your Primary Care doctor if you gain more than 2-3 pounds in 1-2 days. MEDICATIONS * Use this discharge instruction sheet for medication instructions. * Take your medications at the time your doctor ordered. * Do not skip a dose of your medicines. * If you miss a dose of medicine, take it as soon as possible, but DO NOT DOUBLE A DOSE. * Read your medicine information when you get home. * Know all of the side effects of your medicine. If in doubt, ask your pharmacist * Call your Primary Care doctor's office if you have any side effects. * Be sure all of your doctors know what medicine and herbs you take (including cold, flu, and herbal medicine). Take the following with you to your follow-up doctor appointments: * Weight Chart * Medication List * List of questions Do not drink excessive alcohol, beer or wine. Current Hospital Diet Patient's current hospital diet: AHA Diet (Heart Healthy), Diabetes Type 2 Diet Discharge Diet Recommended Diet: AHA Diet (Heart Healthy), Diabetes Type 2 Diet Fluid Restriction: 1500 ml (6 cups) Procedures Procedures Performed: CHEST XRAY, ULTRASOUND OF THE LEGS Pending Studies Studies pending at discharge: yes List of pending studies: REPEAT BLOOD WORK C/O PRIMARY CARE PHYSICIAN Laboratory Results Hemoglobin A1c Test 03/24/18 06:52 Range/Units Estimated Average Glucose 209 mg/dl Hemoglobin A1c 8.9 H 4.5-5.6 % Medical Emergencies . Who to Call and When: Call 911 or go to the Emergency Room if: * If at any time you feel your situation is an emergency * You have tightness or pain in your chest that does not go away with rest or Nitroglycerin * You are very short of breath even with rest . Non-Emergent Contact Non-Emergency issues call your: Primary Care Provider, Molten Iron Pourer Call Non-Emergent contact if: you have a fever, you have any medication questions . . "Provider Documentation" section prepared by Juanito Price.
== END 2018-03-28 16:00 | disposition home health service (06) | DRG 292 ==
LOC: EDBD 19:02 → C.EDA 19:04 → C.MED 23:21 → ENRESERV 23:42
PROVIDERS: ADMIT Internal Medicine; ATTEND Internal Medicine
DX: I11.0 Hypertensive heart disease with heart failure (principal); J96.11 Chronic respiratory failure with hypoxia; N17.9 Acute kidney failure, unspecified; Z68.42 Body mass index [BMI] 45.0-49.9, adult; I50.813 Acute on chronic right heart failure; J44.9 Chronic obstructive pulmonary disease, unspecified; E11.9 Type 2 diabetes mellitus without complications; E78.5 Hyperlipidemia, unspecified; M35.3 Polymyalgia rheumatica; Z96.653 Presence of artificial knee joint, bilateral; F17.200 Nicotine dependence, unspecified, uncomplicated; I25.10 Atherosclerotic heart disease of native coronary artery without angina pectoris; K21.9 Gastro-esophageal reflux disease without esophagitis; M10.9 Gout, unspecified; G47.33 Obstructive sleep apnea (adult) (pediatric); I48.2 Chronic atrial fibrillation; E66.01 Morbid (severe) obesity due to excess calories; I27.81 Cor pulmonale (chronic); Z90.710 Acquired absence of both cervix and uterus; Z79.01 Long term (current) use of anticoagulants; Z88.0 Allergy status to penicillin; Z99.81 Dependence on supplemental oxygen; Z79.82 Long term (current) use of aspirin; Z91.19 Patient's noncompliance with other medical treatment and regimen; Z80.0 Family history of malignant neoplasm of digestive organs; Z83.3 Family history of diabetes mellitus; Z82.49 Family history of ischemic heart disease and other diseases of the circulatory system

== ENCOUNTER 2019-01-08 11:09 | Inpatient (IN) ==
--- NOTE | 2019-01-08 11:46 | XRay Report ---
XR chest 1V portable CLINICAL HISTORY: Atypical chest pain COMPARISON STUDY: 08/11/2018 FINDINGS: The heart is enlarged. There is mild central vascular prominence similar to the prior study and suggestive of mild congestive failure/fluid overload. There is no lobar consolidation.[ IMPRESSION: Stable findings. Persistent cardiomegaly and mild pulmonary vascular congestion. No evide nce of focal pulmonary consolidation Electronically signed by: Christopher Delacruz M.D. 01/08/2019 11:45 AM
[2019-01-08 11:47] LABS: Basophils # (auto) 0.02 K/uL (0-0.2); Basophils % (auto) 0.3 %; Eosinophils # (auto) 0.06 K/uL (0-0.5); Eosinophils % (auto) 0.8 %; Hematocrit (blood only) 41.8 % (37-47); Hemoglobin 13.3 g/dL (12.0-16.0); Immature Granulocytes # (auto) 0.01 K/uL (0.00-0.02); Immature Granulocytes % (auto) 0.1 %; Lymphocytes # (auto) 1.97 K/uL (1.2-3.4); Lymphocytes % (auto) 27.7 %; Mean Corpuscular Hgb Conc 31.8 g/dL (32-36); Mean Corpuscular Volume 92.9 fL (80-100); Mean Platelet Volume 10.5 fL (7.4-10.4); Monocytes # (auto) 0.32 K/uL (0.11-0.59); Monocytes % (auto) 4.5 %; Neutrophils # (auto) 4.74 K/uL (1.4-6.5); Neutrophils % (auto) 66.6 %; Platelet Count 133 K/uL (130-400); RDW Coefficient of Variation 16.9 % (11.5-14.5); RDW Standard Deviation 57.6 fL (36.4-46.3); White Blood Count 7.12 K/uL (4.8-10.8)
[2019-01-08 11:54] LABS: Albumin Level 3.1 gm/dl (3.4-5.0); BUN Creatinine Ratio 42.6 (10-20); Calcium 8.4 mg/dl (8.5-10.1); Creatinine Clr Calc Pharmacy 55.3 ml/min; Est GFR (African American) 54.5; Potassium 3.8 mmol/L (3.5-5.1)
[2019-01-08 11:57] LABS: Partial Thromboplastin Ratio 1.5; Prothrombin Time 37.9 Seconds (9.0-12.0)
[2019-01-08 11:58] LABS: Albumin Globulin Ratio 0.9 (0.9-2); Bilirubin,Total 0.4 mg/dl (0.2-1); Globulin 3.3 gm/dl (2.5-4.0); Total Protein 6.4 gm/dl (6.4-8.2); Troponin I 0.032 ng/ml (0-0.045)
[2019-01-08 12:00] LABS: Partial Thromboplastin Time 38.3 Seconds (21.0-31.0)
[2019-01-08 12:01] LABS: INR 4.1 (0.9-1.1)
[2019-01-08] MEDS ORDERED: NITROGLYCERIN 2% OINTMENT 30GM TUBE EXT ONE (13:02)
--- NOTE | 2019-01-08 13:07 | Emergency Department Note ---
Entered by Reji Canales acting as a scribe for Santana Santana DO History of Present Illness General Chief complaint: Chest Pain Source: patient Limitations: no limitations History of Present Illness Provider complaint: Chest Pain Onset (ago): week(s) Location: chest Pain Consistency: + intermittent Maximum Pain Intensity: 2 Relieved By: + medication (Nitroglycerin) Associated symptoms: no cough and no nausea/vomiting Treatments prior to arrival: other (Nitro) The patient is a 68-year-old female who has a history of atrial fibrillation who presented to the emergency department from the [facility] for an evaluation of chest pain. The patient has been experiencing chest pain which is on the left side of the chest over the last few weeks. This is very intermittent and sharp. She states that sometimes it is associated with exertion but not always. She has been taking her nitroglycerin with some relief of her pain. The patient had an episode at the [facility] and was sent directly to the emergency department for further evaluation. The patient states that she has intermittent pain at this time as well. She has been taking all of her medications without difficulty. The patient denies having any shortness of breath but does complain of some lower extremity edema. She denies having any abdominal pain cough nausea or vomiting. Home Medications Home Medications Medication Instructions Recorded Confirmed Type allopurinol 300 mg PO QAM 08/11/18 01/08/19 History aspirin 81 mg PO QAM 08/11/18 01/08/19 History atorvastatin 2 tab PO QAM 08/11/18 01/08/19 History cholecalciferol (vitamin D3) 2,000 unit PO QAM 08/11/18 01/08/19 History [Vitamin D3] cyanocobalamin (vitamin B-12) 1,000 mcg PO QAM 08/11/18 01/08/19 History [Vitamin B-12] gabapentin 300 mg PO HS 08/11/18 01/08/19 History insulin glargine [Lantus Solostar 40 unit SUBCUT QAM 08/11/18 01/08/19 History U-100 Insulin] nitroglycerin [Nitrostat] 1 tab SUBLINGUAL DIRECTED PRN 08/11/18 01/08/19 History prednisone 10 mg PO DIRECTED PRN 08/11/18 01/08/19 History torsemide 20 mg PO BID 08/11/18 01/08/19 History tramadol 50 mg PO Q6H PRN 08/11/18 01/08/19 History warfarin [Coumadin] 4.5 mg PO HS 08/11/18 01/08/19 History metolazone 2.5 mg tablet 2.5 mg PO DAILY 01/01/19 01/08/19 History metoprolol succinate ER 50 mg 50 mg PO BID 01/01/19 01/08/19 History tablet,extended release 24 hr acetaminophen [Tylenol Extra 1,000 mg PO UD 01/08/19 01/08/19 History Strength] potassium chloride 10 meq PO QAM 01/08/19 01/08/19 History spironolactone 12.5 mg PO MOWEFR@1200 01/08/19 01/08/19 History Allergies Allergy/AdvReac Type Severity Reaction Status Date / Time Penicillins Allergy Mild Verified 01/08/19 12:31 rofecoxib Allergy Unknown Verified 01/08/19 12:31 sulindac Allergy Unknown Verified 01/08/19 12:31 Past Med/Surg History Medical History Tobacco use disorder (Chronic) NUVIA on CPAP (Chronic) Chronic respiratory failure with hypoxia (Chronic) Pickwickian syndrome (Chronic) Chronic atrial fibrillation (Chronic) Lumbar radiculopathy (Chronic) Anemia (Chronic 11/27/13) Hypomagnesemia (Chronic) Hypocalcemia (Chronic) Diabetes mellitus, type II (Chronic) Dyslipidemia (Chronic) HTN (hypertension) (Chronic) Polymyalgia rheumatica (Chronic) Right-sided heart failure (Chronic) Surgical History History of hysterectomy (Resolved) History of total knee replacement (Resolved) Social History Current Living Situation: Alone Other Information That Helps Us Care for You: No Feels Safe at Home: Yes Safety Concerns: Feels Safe At This Time Smoking Status: Current some day smoker Tobacco Type: cigarettes Cigarettes per Day: 3 Do You Dip or Chew Tobacco: No Second Hand Exposure: No Tobacco Cessation Education Requested by Patient: No Hx Alcohol Use: No Hx Substance Use: No Beliefs That Will Affect Care: None Preferred Language: Yakut Communication Ability: Effective Coal Gasification Technician Required: No Review of Systems See HPI for pertinent positives & negatives. and A total of 10 systems reviewed and were otherwise negative Physical Exam Vital Signs Vital Signs - 24 hr 01/08/19 11:18 01/08/19 11:32 01/08/19 12:17 Temperature 36.6 C Temperature Source Oral Sepsis Recent Fever Within 48 Hours No Sepsis Action Taken by Nursing No Action Required Pulse Rate 87 Pulse Rate [Left] 94 H Respiratory Rate 20 20 Respiratory Effort / Characteristics Non-Labored Spontaneous Respiratory Depth Normal Respiratory Pattern Blood Pressure 150/72 H Blood Pressure [Right Arm] 119/71 Blood Pressure Mean 98 Blood Pressure Mean [Right Arm] 87 Pulse Oximetry 96 95 94 Pulse Oximetry [Left Index Finger] Oxygen Delivery Method Nasal Cannula Nasal Cannula Nasal Cannula Oxygen Delivery Method [Left Index Finger] Oxygen Flow Rate 2 2 2 Oxygen Flow Rate [Left Index Finger] 01/08/19 13:22 01/08/19 14:33 01/08/19 15:26 Temperature Temperature Source Sepsis Recent Fever Within 48 Hours Sepsis Action Taken by Nursing Pulse Rate Pulse Rate [Left] 86 90 Respiratory Rate 20 20 Respiratory Effort / Characteristics Non-Labored Spontaneous Spontaneous SOB on Exertion Respiratory Depth Normal Normal Respiratory Pattern Regular Regular Blood Pressure Blood Pressure [Right Arm] 167/105 H 115/87 Blood Pressure Mean Blood Pressure Mean [Right Arm] 125 96 Pulse Oximetry 98 96 Pulse Oximetry [Left Index Finger] Oxygen Delivery Method Nasal Cannula Nasal Cannula Room Air Oxygen Delivery Method [Left Index Finger] Oxygen Flow Rate 2 2 Oxygen Flow Rate [Left Index Finger] 01/08/19 15:47 01/08/19 16:29 Temperature 36.6 C Temperature Source Oral Sepsis Recent Fever Within 48 Hours Sepsis Action Taken by Nursing Pulse Rate 90 108 H Pulse Rate [Left] 105 H Respiratory Rate 20 18 Respiratory Effort / Characteristics Non-Labored Spontaneous Labored SOB on Exertion Respiratory Depth Normal Respiratory Pattern Regular Blood Pressure 115/87 Blood Pressure [Right Arm] 142/84 H Blood Pressure Mean Blood Pressure Mean [Right Arm] 103 Pulse Oximetry 95 97 Pulse Oximetry [Left Index Finger] 97 Oxygen Delivery Method Nasal Cannula Nasal Cannula Oxygen Delivery Method [Left Index Finger] Nasal Cannula Oxygen Flow Rate 2 2 Oxygen Flow Rate [Left Index Finger] 2 GENERAL: Patient is awake alert in no acute distress patient is resting comfortably and showing no signs of anxiety EYES: The conjunctivae are clear. The pupils are round and reactive. EARS, NOSE, MOUTH AND THROAT: The nose is without any evidence of any deformity. Mucous membranes are moist tongue is midline NECK: The neck is nontender and supple. RESPIRATORY: Normal respiratory effort is noted. There are rales at both bases. CARDIOVASCULAR: Regular rate and rhythm noted there no murmurs rubs or gallops normal S1 normal S2 GASTROINTESTINAL: The abdomen is soft. Bowel sounds are present in all quadrants. Abdomen is nontender MUSCULOSKELETAL/EXTREMITIES: There is no evidence of gross deformity full range of motion is noted in the hips and shoulders SKIN: There is no obvious evidence of any rash. There was edema bilaterally. NEUROLOGIC: Patient is awake alert and oriented x3. Course Past medical records reviewed. The patient was evaluated in room C2B, and a complete history and physical examination were performed. 1313: I [facility] the [facility]AY[facility]. She will evaluate the patient for further management. Consultations Consultation #1: [id number]: I reviewed the [facility]'s [facility]AY[facility]. She will evaluate the patient for further management. Administered Medications Furosemide 40 mg/ Syringe 4 mls @ 4 mls/min IV [id number] CARLEY Stop: 02/07/19 17:14 Last Admin: 01/08/19 17:58 Dose: 4 mls/min Insulin Aspart (Novolog Flexpen) 0 units SC ACHS CARLEY Stop: 02/07/19 16:29 Last Admin: 01/08/19 17:58 Dose: 6 units Discontinued Medications Acetaminophen (Tylenol) 1,000 mg PO NOW STA Stop: 01/08/19 13:10 Last Admin: 01/08/19 13:18 Dose: 1,000 mg Aspirin (Aspirin) 324 mg PO NOW STA Stop: 01/08/19 13:09 Last Admin: 01/08/19 13:16 Dose: Not Given Nitroglycerin (Nitro-Bid 2%) 1 inch EXT NOW ONE Stop: 01/08/19 13:03 Last Admin: 01/08/19 13:19 Dose: 1 inch Medical Decision Making Differential Diagnosis Differential diagnosis: Etiologies such as shingles, musculoskeletal pain, pericarditis, myocarditis, cardiac ischemia, pericardial tamponade, pneumonia, pneumothorax, pleural effusion, hemothorax, pleurisy, aortic pathology, pulmonary embolism, intra- abdominal process, as well as others were considered. Medical Records Attestation: I reviewed the patient's medical records. Home Medications Current Medication List: was personally reviewed by me Laboratory Data Attestation: I reviewed the patient's lab results. Result diagrams: 01/08/19 11:15 01/08/19 11:15 Lab Results 01/08/19 01/08/19 01/08/19 Range/Units 11:15 11:15 11:15 WBC 7.12 (4.8-10.8) K/uL RBC 4.50 (4.2-5.4) M/uL Hgb 13.3 (12.0-16.0) g/dL Hct 41.8 (37-47) % MCV 92.9 (80-100) fL MCH 29.6 (25-34) pg MCHC 31.8 L (32-36) g/dL RDW Std Deviation 57.6 H (36.4-46.3) fL RDW Coeff of Patrick 16.9 H (11.5-14.5) % Plt Count 133 (130-400) K/uL MPV 10.5 H (7.4-10.4) fL Immature Gran % (Auto) 0.1 % Neut % (Auto) 66.6 % Lymph % (Auto) 27.7 % Marin % (Auto) 4.5 % Eos % (Auto) 0.8 % Baso % (Auto) 0.3 % Immature Gran # (Auto) 0.01 (0.00-0.02) K/uL Neut # (Auto) 4.74 (1.4-6.5) K/uL Lymph # (Auto) 1.97 (1.2-3.4) K/uL Marin # (Auto) 0.32 (0.11-0.59) K/uL Eos # (Auto) 0.06 (0-0.5) K/uL Baso # (Auto) 0.02 (0-0.2) K/uL PT 37.9 H (9.0-12.0) Seconds INR 4.1 H (0.9-1.1) APTT 38.3 H (21.0-31.0) Seconds PTT Ratio 1.5 Sodium 140 (136-145) mmol/L Potassium 3.8 (3.5-5.1) mmol/L Chloride 102 (98-107) mmol/L Carbon Dioxide 34 H (21-32) mmol/L Anion Gap 4.0 (3-11) BUN 50 H (7-18) mg/dl Creatinine 1.18 (0.6-1.2) mg/dl Est Cr Clr Drug Dosing 55.3 ml/min Est GFR ( Amer) 54.5 Est GFR (Non-Af Amer) 47.0 BUN/Creatinine Ratio 42.6 H (10-20) Glucose 192 H (70-99) mg/dl POC Glucose (70-99) Calcium 8.4 L (8.5-10.1) mg/dl Total Bilirubin 0.4 (0.2-1) mg/dl AST 13 L (15-37) U/L ALT 27 (12-78) U/L Alkaline Phosphatase 85 (45-117) U/L Troponin I 0.032 (0-0.045) ng/ml NT-Pro-B Natriuret Pep (0-900) pg/ml Total Protein 6.4 (6.4-8.2) gm/dl Albumin 3.1 L (3.4-5.0) gm/dl Globulin 3.3 (2.5-4.0) gm/dl Albumin/Globulin Ratio 0.9 (0.9-2) 01/08/19 01/08/19 01/08/19 Range/Units 11:15 16:30 17:41 WBC (4.8-10.8) K/uL RBC (4.2-5.4) M/uL Hgb (12.0-16.0) g/dL Hct (37-47) % MCV (80-100) fL MCH (25-34) pg MCHC (32-36) g/dL RDW Std Deviation (36.4-46.3) fL RDW Coeff of Patrick (11.5-14.5) % Plt Count (130-400) K/uL MPV (7.4-10.4) fL Immature Gran % (Auto) % Neut % (Auto) % Lymph % (Auto) % Marin % (Auto) % Eos % (Auto) % Baso % (Auto) % Immature Gran # (Auto) (0.00-0.02) K/uL Neut # (Auto) (1.4-6.5) K/uL Lymph # (Auto) (1.2-3.4) K/uL Marin # (Auto) (0.11-0.59) K/uL Eos # (Auto) (0-0.5) K/uL Baso # (Auto) (0-0.2) K/uL PT (9.0-12.0) Seconds INR (0.9-1.1) APTT (21.0-31.0) Seconds PTT Ratio Sodium (136-145) mmol/L Potassium (3.5-5.1) mmol/L Chloride (98-107) mmol/L Carbon Dioxide (21-32) mmol/L Anion Gap (3-11) BUN (7-18) mg/dl Creatinine (0.6-1.2) mg/dl Est Cr Clr Drug Dosing ml/min Est GFR ( Amer) Est GFR (Non-Af Amer) BUN/Creatinine Ratio (10-20) Glucose (70-99) mg/dl POC Glucose 96 (70-99) Calcium (8.5-10.1) mg/dl Total Bilirubin (0.2-1) mg/dl AST (15-37) U/L ALT (12-78) U/L Alkaline Phosphatase (45-117) U/L Troponin I 0.020 (0-0.045) ng/ml NT-Pro-B Natriuret Pep 2096 H (0-900) pg/ml Total Protein (6.4-8.2) gm/dl Albumin (3.4-5.0) gm/dl Globulin (2.5-4.0) gm/dl Albumin/Globulin Ratio (0.9-2) Imaging Data Attestation: I personally reviewed and interpreted this imaging study as follows : Radiologist's Impression: XR chest 1V portable CLINICAL HISTORY: Atypical chest pain COMPARISON STUDY: 08/11/2018 FINDINGS: The heart is enlarged. There is mild central vascular prominence similar to the prior study and suggestive of mild congestive failure/fluid overload. There is no lobar consolidation.[ IMPRESSION: Stable findings. Persistent cardiomegaly and mild pulmonary vascular congestion. No evidence of focal pulmonary consolidation Electronically signed by: Christopher Delacruz M.D. 01/08/2019 11:45 AM ECG Data Attestation: I personally reviewed and interpreted this ECG as follows: Indication: chest pain Rate (beats per minute): 97 Rhythm: atrial fibrillation Findings: + ST depression (Anterior); no ectopy Comparison ECG Date: from (08/11/2018) Change: no significant change Blood Pressure Blood Pressure Findings: Elevated blood pressure Blood Pressure Disposition: further management by hospitalist HILDA Gomez The patient is a 68-year-old female who presented to the emergency department for an evaluation of chest pain. The patient was taking her nitroglycerin with some relief recently but started having worsening pain that was requiring frequent use of nitroglycerin. I discussed the patient's laboratory and radiographic studies with her. I also discussed the limitations of the emergency department workup for chest pain with her. Her EKG did not show any change from previous but her troponin was mildly elevated. For this reason I discussed her case with the on-call [facility] hospitalist group. They have agreed to evaluate the patient in the emergency department for further management and disposition. Impression & Plan Chest pain, Unstable angina Discharge Plan Visit Data *Final* Discharge Date/Time: 01/08/19 15:47 Chief Complaint: Chest Pain ED Provider: Santana Santana Discharge Problem: Chest pain, Unstable angina Patient Disposition: Admitted As Inpatient Discharge Instructions Interventions: ED Discharge Assessment Last Done: 01/08/19 15:47 The scribe's documentation has been prepared under my direction and personally reviewed by me in its entirety. I confirm that the note above accurately reflects all work, treatment, procedures, and medical decision making performed by me.
[2019-01-08] MEDS ORDERED: ASPIRIN CHEW 324 MG PO STA (13:08)
[2019-01-08] MEDS ORDERED: ACETAMINOPHEN 500 MG TAB PO STA (13:09)
--- NOTE | 2019-01-08 15:14 | History & Physical Report ---
Date of Service January 08, 2019 Assessment & Plan (1) Acute exacerbation of CHF (congestive heart failure): This is a 68yo F with a PMH of R sided heart failure, cor pulmonale, DM II , HTN, chronic A Fib on anticoagulation, NUVIA on CPAP, venous stasis ulcers, tobacco use and other medical problems listed below who presents with intermittent chest pain and dyspnea on exertion. -Patient with weight gain of ~19 lb since 12/29/18, per chart review -CXR with persistent cardiomegaly and mild pulmonary vascular congestion. No evidence of focal pulmonary consolidation -ECG without acute changes, BNP elevated at 2,096 , initial troponin is WNL -Recent echo from Jul 2018 with moderate LVH, preserved EF of 55-60%, severe pulm HTN (55-60 mmHg), mild AV sclerosis -Trend cardiac enzymes, repeat labs and ECG in AM -Restrict fluid intake, monitor daily weights -Routine cardiology consult -IV Lasix 40mg BID (2) Chest pain: Intermittent left sided sharp pains x 2 weeks, currently no pain -Initial troponin negative, EKG with A fib at 97 bpm, no significant changes from previous EKG -Continue to trend troponin. Monitor on med tele -Continue statin, baby aspirin, sublingual NTG PRN -Cardiology consulted -Continue to monitor (3) Venous stasis ulcers of both lower extremities: Follows with wound care, new dressings applied today -Recently completed Keflex and doxy courses not currently on abx -Wound care nurse consulted (4) Chronic respiratory failure with hypoxia: In setting of Pickwickian syndrome, pulm HTN, restrictive lung disease -Continue supplemental 2L NC O2 during day, CPAP HS -Manage acute on chronic R heart failure exacerbation (5) Diabetes mellitus, type II: Uncontrolled. A1c of 11.7 in Jul 2018. Ordered repeat -Hold home medication -Basal/bolus insulin per protocol while in-patient -BSG checks AC HS (6) Chronic atrial fibrillation: EKG with Atrial Fibrillation at 97 bpm -Continue metoprolol for rate control -On coumadin-- INR supratherapeutic at 4.1 today -Will hold evening dose of coumadin and recheck INR in AM -Med telemetry (7) HTN (hypertension): Mild elevation -Receiving IV Lasix. Continue metoprolol (8) Tobacco use disorder: Counselled on cessation. Not interested at this time. DVT Ppx: On coumadin Code status: FULL per discussion with patient PCP: Meche Dispo: Admitted to med/tele. Discharge planning ordered ([facility] patient) Patient seen in collaboration with Dr. Mosley. Please see addendum. History of Present Illness Chief Complaint: chest pain Primary Care Provider: Rosana Mcgregor This is a 68yo F with a PMH of R sided heart failure, cor pulmonale, DM II, HTN , chronic A Fib on anticoagulation, NUVIA on CPAP, venous stasis ulcers, tobacco use and other medical problems listed below who presents with intermittent chest pain and dyspnea on exertion. Patient was at wound care appointment to day and mentioned an episode of sharp left-sided chest pain that lasted for a minute and resolved spontaneously. Endorses weight gain over the past week and [place] was increased from 20mg to 40mg BID for 3 days [facility]. Has been experiencing worsening dyspnea on exertion for the past few days as well as BLE edema. Denies any fever, chills, lightheadedness, cough, wheezing, palpitations, nausea, vomiting or abdominal pain. Allergies Allergy/AdvReac Type Severity Reaction Status Date / Time Penicillins Allergy Mild Verified 01/08/19 12:31 rofecoxib Allergy Unknown Verified 01/08/19 12:31 sulindac Allergy Unknown Verified 01/08/19 12:31 Home Medications Home Medications Medication Instructions Recorded Confirmed Type allopurinol 300 mg PO QAM 08/11/18 01/08/19 History aspirin 81 mg PO QAM 08/11/18 01/08/19 History atorvastatin 2 tab PO QAM 08/11/18 01/08/19 History cholecalciferol (vitamin D3) 2,000 unit PO QAM 08/11/18 01/08/19 History [Vitamin D3] cyanocobalamin (vitamin B-12) 1,000 mcg PO QAM 08/11/18 01/08/19 History [Vitamin B-12] gabapentin 300 mg PO HS 08/11/18 01/08/19 History insulin glargine [Lantus Solostar 40 unit SUBCUT QAM 08/11/18 01/08/19 History U-100 Insulin] nitroglycerin [Nitrostat] 1 tab SUBLINGUAL DIRECTED PRN 08/11/18 01/08/19 History prednisone 10 mg PO DIRECTED PRN 08/11/18 01/08/19 History torsemide 20 mg PO BID 08/11/18 01/08/19 History tramadol 50 mg PO Q6H PRN 08/11/18 01/08/19 History warfarin [Coumadin] 4.5 mg PO HS 08/11/18 01/08/19 History metolazone 2.5 mg tablet 2.5 mg PO DAILY 01/01/19 01/08/19 History metoprolol succinate ER 50 mg 50 mg PO BID 01/01/19 01/08/19 History tablet,extended release 24 hr acetaminophen [Tylenol Extra 1,000 mg PO UD 01/08/19 01/08/19 History Strength] potassium chloride 10 meq PO QAM 01/08/19 01/08/19 History spironolactone 12.5 mg PO MOWEFR@1200 01/08/19 01/08/19 History Past Med/Surg History Medical History Tobacco use disorder (Chronic) NUVIA on CPAP (Chronic) Chronic respiratory failure with hypoxia (Chronic) Pickwickian syndrome (Chronic) Chronic atrial fibrillation (Chronic) Lumbar radiculopathy (Chronic) Anemia (Chronic 11/27/13) Hypomagnesemia (Chronic) Hypocalcemia (Chronic) Diabetes mellitus, type II (Chronic) Dyslipidemia (Chronic) HTN (hypertension) (Chronic) Polymyalgia rheumatica (Chronic) Right-sided heart failure (Chronic) Surgical History History of hysterectomy (Resolved) History of total knee replacement (Resolved) Social History Current Living Situation: Alone Other Information That Helps Us Care for You: No Feels Safe at Home: Yes Safety Concerns: Feels Safe At This Time Smoking Status: Current some day smoker Tobacco Type: cigarettes Cigarettes per Day: 3 Do You Dip or Chew Tobacco: No Second Hand Exposure: No Tobacco Cessation Education Requested by Patient: No Hx Alcohol Use: No Hx Substance Use: No Beliefs That Will Affect Care: None Preferred Language: Peruvian Communication Ability: Effective 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: No Review of Systems Constitutional: + fatigue and + weight gain; no fever, no chills and no weakness Eyes: no worsening vision Ear, Nose, Mouth, Throat: no nasal congestion and no sore throat Respiratory: + dyspnea on exertion; no cough and no pain on inspiration Cardiovascular: + chest pain and + edema; no radiating jaw, neck or arm pain, no palpitations, no lightheadedness and no syncope Gastrointestinal: no nausea, no vomiting and no change in stools Genitourinary (Female): no dysuria and no hematuria Musculoskeletal: no joint pain Integumentary: + wounds (chronic venous stasis ulcers ) Neurologic: no localized weakness, no numbness and no paresthesia Psychiatric: no behavioral changes Physical Exam 2 Vital Signs (Past 24 Hours): Last Vital Signs Temp 36.6 C 01/08/19 11:18 Pulse 86 01/08/19 13:22 Resp 20 01/08/19 13:22 BP 167/105 H 01/08/19 13:22 Pulse Ox 98 01/08/19 13:22 Physical Exam: General Appearance: WD/WN, no apparent distress Head: normocephalic, atraumatic Eyes: normal inspection, PERRL, EOMI ENT: hearing grossly normal, pharynx normal (moist mucous membranes) Neck: supple, no JVD, no adenopathy Respiratory/Chest: Decreased breath sounds bilaterally. No wheezes, rales or rhonci observes. No respiratory distress or accessory muscle use. Saturating at 95% on 2L NC (baseline) Cardiovascular: regular rate, rhythm, no murmur, normal peripheral pulses, 1-2 + BLE edema Abdomen/GI: normal bowel sounds, soft, non-tender to palpation Extremities/Musculoskelatal: normal inspection, no calf tenderness, normal capillary refill, bilateral leg wraps Neurologic/Psych: alert, normal mood/affect, oriented x 3 Skin: normal color, warm/dry Results & Data Laboratory Results Short CBC 01/08/19 Range/Units 11:15 WBC 7.12 (4.8-10.8) K/uL Hgb 13.3 (12.0-16.0) g/dL Hct 41.8 (37-47) % Plt Count 133 (130-400) K/uL BMP 01/08/19 11:15 Sodium 140 Potassium 3.8 Chloride 102 Carbon Dioxide 34 H BUN 50 H Creatinine 1.18 Glucose 192 H Calcium 8.4 L Cardiac Enzymes 01/08/19 Range/Units 11:15 Troponin I 0.032 (0-0.045) ng/ml Liver Function 01/08/19 Range/Units 11:15 Total Bilirubin 0.4 (0.2-1) mg/dl AST 13 L (15-37) U/L ALT 27 (12-78) U/L Alkaline Phosphatase 85 (45-117) U/L Albumin 3.1 L (3.4-5.0) gm/dl Diagnostic Findings CXR: IMPRESSION: Stable findings. Persistent cardiomegaly and mild pulmonary vascular congestion. No evidence of focal pulmonary consolidation ECG Rhythm: atrial fibrillation Findings: + prolonged QT Change: no significant change Additional Comments: Anterior ischemia Code Status & VTE Plan Code Status FULL Supervising Physician Co-Signing Physician Notes HISTORY: Record reviewed. Patient interviewed and examined. Care coordinated with Odalis Rdz PA-C. Please refer to her documentation for patient's history. Briefly, 68-year-old female with history of right-sided heart failure, chronic atrial fibrillation, obstructive sleep apnea, hypertension, diabetes mellitus type 2, and other problems. Daily ED today for evaluation of increasing shortness of breath associate with weight gain and worsening dependent edema. Experiencing some transient left-sided stabbing chest pain, neither exertional nor pleuritic in nature. EXAM: General- no distress Lungs- clear to auscultation; no respiratory distress Cardiovascular- irregular; no murmur or no gallop appreciated; + JVD; 2+ pretibial edema Abdomen- + bowel sounds, soft, nontender Extremities- no cyanosis; no calf tenderness; lower extremities wrapped with Unna boot Neuro- alert, oriented Skin- warm & dry DATA: INR 4.1 BUN 50, creatinine 1.18, random glucose 192. Troponin 0 0.032, proBNP 2096. Other lab studies as noted. Chest x-ray reviewed and demonstrated cardiomegaly and pulmonary vascular congestion. EKG performed at 1112 reviewed and demonstrated atrial fibrillation at 100/ minute, no acute changes. ASSESSMENT AND PLAN: Acute on chronic right-sided heart failure due to underlying sleep apnea. Atypical chest pain. IV diuretics ordered. Follow exam, weights, labs. Please refer to PRASHANT Rdz's documentation for discussion of other issues. _ (1) Diabetes mellitus, type II Chronic kidney disease stage: Diabetes mellitus complication detail: with chronic kidney disease Diabetes mellitus complication status: with kidney complications Diabetes mellitus meterman insulin use: unspecified meterman insulin use status Diabetes mellitus macular edema: Diabetic retinopathy severity: Laterality: Proliferative retinopathy type: (2) Chest pain Chest pain type: unspecified Ischemic chest pain type: Qualified Code(s): R07.9 - Chest pain, unspecified (3) HTN (hypertension) Hypertension type: unspecified Qualified Code(s): I10 - Essential (primary) hypertension
[2019-01-08] MEDS ORDERED: TRAMADOL HCL 50 MG TABLET PO PRN (16:29)
[2019-01-08] MEDS ORDERED: GLUCOSE 40% GEL 15 GM TUBE PO PRN (16:29)
[2019-01-08] MEDS ORDERED: POLYETHYLENE (MIRALAX) 17 GM PACK PO PRN (16:29)
[2019-01-08] MEDS ORDERED: GLUCOSE 10 TABS/TUBE PO PRN (16:29)
[2019-01-08] MEDS ORDERED: GLUCAGON FOR INJ 1 MG VIAL SQ PRN (16:29)
[2019-01-08] MEDS ORDERED: CARBOHYDRATES FOR HYPOGLYCEMIA PO PRN (16:29)
[2019-01-08] MEDS ORDERED: NITROGLYCERIN SL 0.4 MG/TAB TAB SL PRN (16:29)
[2019-01-08] MEDS ORDERED: DEXTROSE 50% 50 ML SYRINGE IV PRN (16:29)
[2019-01-08] MEDS: FUROSEMIDE 40 MG in SYRINGE 0 ML IV SCH (17:58)
[2019-01-08] MEDS: INSULIN ASPART 100 UNITS/ML 3 ML PEN SC SCH ×2 (17:58→20:52)
[2019-01-08] MEDS: INSULIN GLARGINE SOLOSTAR 100 UNITS/ML 3 ML PEN SC SCH (20:53)
[2019-01-08] MEDS: NYSTATIN POWDER 15GM BTL EXT SCH (20:56)
[2019-01-08] MEDS: METOPROLOL SUCC 50MG EXT REL TAB PO SCH (21:00)
[2019-01-08] MEDS: GABAPENTIN 300 MG CAP PO SCH (21:00)
[2019-01-09] MEDS: ACETAMINOPHEN 500 MG TAB PO PRN ×2 (02:25→13:45)
[2019-01-09 06:31] LABS: Hematocrit (blood only) 43.2 % (37-47); Hemoglobin 13.6 g/dL (12.0-16.0); Mean Corpuscular Hgb Conc 31.5 g/dL (32-36); Mean Corpuscular Volume 94.3 fL (80-100); Mean Platelet Volume 10.2 fL (7.4-10.4); Platelet Count 122 K/uL (130-400); RDW Coefficient of Variation 17.1 % (11.5-14.5); RDW Standard Deviation 58.7 fL (36.4-46.3); Red Blood Count 4.58 M/uL (4.2-5.4)
[2019-01-09 07:01] LABS: BUN Creatinine Ratio 36.5 (10-20); Calcium 9.1 mg/dl (8.5-10.1); Creatinine Clr Calc Pharmacy 58.9 ml/min; Est GFR (African American) 62.8; Est GFR (Non-African American) 54.1; Magnesium 2.2 mg/dl (1.8-2.4); Potassium 3.6 mmol/L (3.5-5.1)
[2019-01-09 07:05] LABS: Prothrombin Time 33.6 Seconds (9.0-12.0)
[2019-01-09 07:06] LABS: INR 3.6 (0.9-1.1)
[2019-01-09] MEDS ORDERED: MoRPHine SULFATE 2 MG/ML CARP IV STA (07:20)
[2019-01-09] MEDS: ATORVASTATIN 40 MG TAB PO SCH (07:43)
[2019-01-09] MEDS: CYANOCOBALAMIN 500 MCG TABLET (VITAMIN B-12) PO SCH (07:43)
[2019-01-09] MEDS: ALLOPURINOL 300 MG TAB PO SCH (07:44)
[2019-01-09] MEDS: POTASSIUM CHLORIDE 10 MEQ TABCR PO SCH (07:44)
[2019-01-09] MEDS: METOPROLOL SUCC 50MG EXT REL TAB PO SCH ×2 (07:44→21:01)
[2019-01-09] MEDS: CHOLECALCIFEROL 1,000 UNITS TAB PO SCH (07:44)
[2019-01-09] MEDS: ASPIRIN 81 MG ECTAB PO SCH (07:44)
[2019-01-09] MEDS: NYSTATIN POWDER 15GM BTL EXT SCH ×2 (07:45→21:03)
[2019-01-09] MEDS: FUROSEMIDE 40 MG in SYRINGE 0 ML IV SCH ×2 (07:48→17:53)
[2019-01-09 07:57] LABS: Estimated Average Glucose 272 mg/dl; Hemoglobin A1C 11.1 % (4.5-5.6)
[2019-01-09] MEDS: INSULIN ASPART 100 UNITS/ML 3 ML PEN SC SCH ×4 (09:01→20:57)
[2019-01-09] MEDS: INSULIN GLARGINE SOLOSTAR 100 UNITS/ML 3 ML PEN SC SCH ×2 (09:02→20:56)
--- NOTE | 2019-01-09 13:15 | Consultation Report ---
DATE OF CONSULTATION: 01/09/2019 INPATIENT CARDIOLOGY CONSULTATION CONSULTATION REQUESTED BY: Dr. Mosley. REASON FOR CONSULTATION: Acute decompensated right and LV diastolic heart failure. HISTORY OF PRESENT ILLNESS: Mrs. Kumar is a very pleasant 68-year-old woman who normally follows with myself as an outpatient. She presented to [facility] Emergency Department on 01/08/2019 with a complaint of several weeks of worsening lower extremity edema and shortness of breath. The patient states that her issue started about 2 weeks ago when she started noting herself to be filling with fluid. This slowly progressed to the point where she started becoming short of breath with minimal activity as well. She was initially seen by [facility] and her diuretic dosage was increased, which improved her symptoms for a few days; however, then she once again began to deteriorate. She presented to [facility] Emergency Department on 01/08/2019 from her wound care appointment after she mentioned she had an episode of chest discomfort. Currently, the patient describes her chest discomfort is more of a fullness feeling as though she is not able to take a deep breath and she will occasionally get sharp stabbing pain along her right sternal border when she does take a deep breath. Otherwise, she states that her dyspnea has improved since admission and she has been diuresing well. She has been compliant with all of her medications and her diet restrictions as well. PAST SURGICAL HISTORY: 1. Total abdominal hysterectomy. 2. Knee surgeries. 3. Colonoscopy. 4. Tonsillectomy. MEDICAL ILLNESSES: 1. Cor pulmonale. 2. Persistent atrial fibrillation, rate controlled on chronic Coumadin therapy. 3. Obesity. 4. Diabetes. 5. Severe COPD. 6. Tobacco abuse. 7. Chronic respiratory failure, on home O2. 8. Polymyalgia rheumatica. 9. Primary thrombocytopenia. FAMILY HISTORY: Noncontributory. SOCIAL HISTORY: The patient is a lifelong smoker and continues to smoke a few cigarettes a day. Drinks occasional alcohol. Denies any recreational drug use. Lives at home with her . REVIEW OF SYSTEMS: As per HPI, all other review of systems reviewed and negative at this time. ALLERGIES: PENICILLIN. MEDICATIONS AN OUTPATIENT: 1. Aspirin 81 mg daily. 2. Atorvastatin 80 mg daily. 3. Torsemide 20 mg b.i.d. 4. Spironolactone 12.5 mg Tuesday, Tuesday, Tuesday. 5. Coumadin as directed by the [facility]. 6. Metoprolol tartrate 50 mg b.i.d. 7. Gabapentin 100 mg 3 times a day. 8. Zaroxolyn 2.5 mg p.o. daily as needed for volume overload. 9. Insulin as directed. 10. Oxygen 2 liters via nasal cannula. PHYSICAL EXAMINATION: VITALS: Temperature 36.7, pulse 99, respiratory rate 12, blood pressure 147/89. GENERAL: Awake, alert, oriented x3 in no acute distress, pursed lip breathing. HEENT: Normocephalic, atraumatic. Pupils equal, round, react to light and accommodation. Extraocular muscles intact. Anicteric sclerae. Moist mucous membranes. NECK: No JVD, no bruit. CARDIOVASCULAR: Irregularly irregular and distant. Unable to appreciate any murmurs, rubs or gallops. PULMONARY: Poor air movement diffusely, particularly in the bilateral bases with scant crackles, no rhonchi or wheezing. ABDOMEN: Bowel sounds x4, soft. No rebound, guarding, tenderness. No organomegaly. EXTREMITIES: No clubbing, cyanosis or edema. +2 pedal pulses bilaterally. SKIN: Warm and dry. TEST RESULTS AND LABORATORY STUDIES OF SIGNIFICANCE: Sodium 141, potassium 3.6, BUN 38, creatinine of 1, magnesium 2.2. A 2D echocardiogram from July 2018 was read as left ventricular chamber size is normal with moderate concentric LVH, flattened septum consistent with RV pressure overload, otherwise normal LV systolic function, EF 55-59%, mild aortic valve sclerosis without stenosis, moderate mitral regurgitation, mild to moderate tricuspid regurgitation, right ventricular systolic pressure is elevated at 50-60 mmHg. IMPRESSION: 1. Acute decompensated right-sided heart failure with possible diastolic heart failure as well. 2. Severe chronic obstructive pulmonary disease. 3. Chronic respiratory failure, on home O2. 4. Pulmonary hypertension. 5. Permanent atrial fibrillation, on chronic anticoagulation. RECOMMENDATIONS: It was my pleasure to see Mrs. Kumar in reevaluation today. From a cardiac standpoint, she definitely examined as volume overloaded and she is up 19 pounds from her previous discharge. Luckily, she has been started on IV Lasix and is already 1400 mL negative, so we will continue with Lasix 40 mg IV b.i.d. Otherwise, her pain does not appear ischemic in origin. No further ischemic workup is necessary at this time. The patient will be diuresed to a dry weight and likely discharge to home at that time. Unfortunately, there is no way of telling the exact date at this time. Her electrolytes should also be followed closely and replete as necessary and otherwise maintained on her outpatient medical regimen.
--- NOTE | 2019-01-09 18:51 | Hospitalist Progress Note ---
Date of Service January 09, 2019 Assessment & Plan (1) Acute exacerbation of CHF (congestive heart failure): This is a 68yo F with a PMH of R sided heart failure, cor pulmonale, DM II , HTN, chronic A Fib on anticoagulation, NUVIA on CPAP, venous stasis ulcers, tobacco use and other medical problems listed below who presents with intermittent chest pain and dyspnea on exertion. Acute decompensated right-sided heart failure with possible diastolic heart failure -Recent echo from Jul 2018 with moderate LVH, preserved EF of 55-60%, severe pulm HTN (55-60 mmHg), mild AV sclerosis -admission CXR with persistent cardiomegaly and mild pulmonary vascular congestion. No evidence of focal pulmonary consolidation -Patient with weight gain of ~19 lb since 12/29/18, per chart review -ECG without acute changes, BNP elevated at 2,096 , initial troponin is WNL -IV Lasix 40mg BID, continue as per cardiology (2) Chest pain: Intermittent left sided sharp pains x 2 weeks, currently no pain -chest pain likely nonischemic as per cardiology and will likely resolved with diuresis -Continue statin, baby aspirin, sublingual NTG PRN, Lasix (3) Venous stasis ulcers of both lower extremities: -continue Wound care (4) Chronic respiratory failure with hypoxia: Chronic respiratory failure, on home oxygen (In setting of Pickwickian syndrome, pulm HTN, restrictive lung disease, Severe chronic obstructive pulmonary disease.) Pulmonary hypertension. 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 Continue metoprolol Chronic kidney disease, stage 2-3 (8) Tobacco use disorder: Counseled on cessation DVT Ppx: On coumadin Code status: FULL per discussion with patient PCP: Meche Dispo: Admitted to med/tele. Discharge planning ordered ([facility] patient) Subjective Patient reported feeling shortness of breath in AM but appears to be doing better. denies chest pain or palpitations. denies abdominal pain. denies vomiting. reports shes is eating okay Physical Exam 2 Vital Signs (Past 24 Hours): Last Vital Signs Temp 36.4 C L 01/09/19 15:34 Pulse 93 H 01/09/19 15:34 Resp 22 01/09/19 15:34 BP 148/77 H 01/09/19 15:34 Pulse Ox 97 01/09/19 15:34 Constitutional: WD/WN, vitals as above Eyes: PERRL, conjunctivae normal, anicteric sclerae EOM intact bilaterally ENMT: external ear and nose normal, oropharynx normal Neck: normal visual inspection Respiratory: normal respiratory effort, lungs clear to auscultation Cardiovascular: Rate/Rhythm: regular rate (atrial fibrillation) Gastrointestinal (Abdomen): normal bowel sounds, soft, nontender, no hepatosplenomegaly Musculoskeletal: Head/Neck/Chest: normocephalic and head atraumatic Neurologic: PERRL, EOMI, accommodation nl, no face palsy, no dysarthria CN' s II-XI intact bilaterally Psychiatric: A+Ox3, euthymic affect _ (1) Diabetes mellitus, type II Chronic kidney disease stage: Diabetes mellitus complication detail: with chronic kidney disease Diabetes mellitus complication status: with kidney complications Diabetes mellitus senior living insulin use: unspecified senior living insulin use status Diabetes mellitus macular edema: Diabetic retinopathy severity: Laterality: Proliferative retinopathy type: (2) Chest pain Chest pain type: unspecified Ischemic chest pain type: Qualified Code(s): R07.9 - Chest pain, unspecified (3) HTN (hypertension) Hypertension type: unspecified Qualified Code(s): I10 - Essential (primary) hypertension
[2019-01-09] MEDS: GABAPENTIN 300 MG CAP PO SCH (21:01)
[2019-01-10] MEDS: ACETAMINOPHEN 500 MG TAB PO PRN ×2 (00:05→14:06)
[2019-01-10] MEDS: CYANOCOBALAMIN 500 MCG TABLET (VITAMIN B-12) PO SCH (07:52)
[2019-01-10] MEDS: CHOLECALCIFEROL 1,000 UNITS TAB PO SCH (07:52)
[2019-01-10] MEDS: ALLOPURINOL 300 MG TAB PO SCH (07:52)
[2019-01-10] MEDS: POTASSIUM CHLORIDE 10 MEQ TABCR PO SCH (07:52)
[2019-01-10] MEDS: ATORVASTATIN 40 MG TAB PO SCH (07:52)
[2019-01-10] MEDS: INSULIN GLARGINE SOLOSTAR 100 UNITS/ML 3 ML PEN SC SCH ×2 (07:53→20:49)
[2019-01-10] MEDS: FUROSEMIDE 40 MG in SYRINGE 0 ML IV SCH ×2 (07:53→17:41)
[2019-01-10] MEDS: METOPROLOL SUCC 50MG EXT REL TAB PO SCH ×2 (07:53→20:51)
[2019-01-10] MEDS: ASPIRIN 81 MG ECTAB PO SCH (07:53)
[2019-01-10] MEDS: NYSTATIN POWDER 15GM BTL EXT SCH ×2 (07:53→20:50)
[2019-01-10] MEDS: INSULIN ASPART 100 UNITS/ML 3 ML PEN SC SCH ×4 (07:54→20:51)
[2019-01-10 08:00] LABS: Hematocrit (blood only) 44.8 % (37-47); Hemoglobin 13.9 g/dL (12.0-16.0); Mean Corpuscular Volume 94.7 fL (80-100); Mean Platelet Volume 9.8 fL (7.4-10.4); Platelet Count 110 K/uL (130-400); RDW Coefficient of Variation 17.1 % (11.5-14.5); RDW Standard Deviation 59.3 fL (36.4-46.3); Red Blood Count 4.73 M/uL (4.2-5.4); White Blood Count 5.71 K/uL (4.8-10.8)
[2019-01-10 08:08] LABS: INR 1.9 (0.9-1.1); Prothrombin Time 18.9 Seconds (9.0-12.0)
[2019-01-10 08:36] LABS: BUN Creatinine Ratio 40.5 (10-20); Calcium 9.3 mg/dl (8.5-10.1); Creatinine Clr Calc Pharmacy 64.7 ml/min; Est GFR (African American) 70.8; Est GFR (Non-African American) 61.1; Magnesium 2.2 mg/dl (1.8-2.4); Potassium 3.7 mmol/L (3.5-5.1)
--- NOTE | 2019-01-10 09:46 | Cardiology Progress Note ---
Date of Service January 10, 2019 Assessment & Plan (1) Acute exacerbation of CHF (congestive heart failure): diuresing well almost 2L negative potassium of 3.7 (2) Chronic atrial fibrillation: (3) Venous stasis ulcers of both lower extremities: (4) NUVIA on CPAP: Subjective Pt seen and examined, oob in chair, states that she feels well. Breathing has greatly improved and LE edema all but resolved. Denies cp, palpitations, lightheadedness or dizziness. Tele reviewed: afib rate controlled Review of Systems All systems reviewed & are unremarkable except as noted in HPI & below Physical Exam 2 Vital Signs (Past 24 Hours): Last Vital Signs Temp 36.4 C L 01/10/19 07:07 Pulse 96 H 01/10/19 07:07 Resp 20 01/10/19 07:07 BP 161/84 H 01/10/19 07:07 Pulse Ox 93 01/10/19 07:07 Physical Exam: General: Awake, alert and oriented x 3. No acute distress. HEENT: Normocephalic, atraumatic. Pupils equal, round and reactive to light and accommodation. Extraocular muscles are intact. Anicteric sclera. Moist mucous membranes. Neck: No JVD. No bruit. Cardiovascular: irregularly irregular, unable to appreciate murmur, rub or gallop. Pulmonary: Clear to auscultation bilaterally. No rales, rhonchi, or wheezing. Abdomen: Bowel sounds x 4, soft. No rebound, guarding or tenderness. No organomegaly. Extremities: No clubbing, cyanosis or edema. +2 pedal pulses bilaterally. Skin: Warm and dry.
--- NOTE | 2019-01-10 11:57 | Hospitalist Progress Note ---
Date of Service January 10, 2019 Assessment & Plan (1) Acute exacerbation of CHF (congestive heart failure): Patient is a 68 yr female with H/O Right heart failure, cor pulmonale, DM II, HTN, chronic A Fib on anticoagulation, NUVIA on CPAP, venous stasis ulcers, tobacco use and other problems presents with intermittent chest pain and dyspnea on exertion. Acute decompensated right-sided heart failure with possible diastolic heart failure --Last ECHO in Jul 2018:moderate LVH, preserved EF of 55-60%, severe pulm HTN ( 55-60 mmHg), mild AV sclerosis --CXR:Stable findings. Persistent cardiomegaly and mild pulmonary vascular congestion. No evidence of focal pulmonary consolidation --Continue IV Lasix 40mg BID --Monitor I/Os, daily weight --Appreciate Cardiology Input (2) Chest pain: Intermittent left sided sharp pains x 2 weeks Chest pain resolved Troponin X 3: Negative --Continue Aspiri, statin, Metoprolol --NTG PRN (3) Venous stasis ulcers of both lower extremities: Continue Wound care (4) Chronic respiratory failure with hypoxia: On home oxygen--2 liters at baseline (H/O Pickwickian syndrome, pulm HTN , restrictive lung disease, Severe chronic obstructive pulmonary disease.) --Continue supplemental Oxygen --Continue CPAP Q HS (5) Diabetes mellitus, type II: HbA1c 11.1 Hold home medications Continue Basal/bolus insulin per protocol Monitor BGs (6) Chronic atrial fibrillation: Rate controlled Continue metoprolol Supratherapeutic INR from coumadin use--Resolved Monitor INR:1.9 today Restart Coumadin (7) HTN (hypertension): Variable Continue metoprolol CKD II-III Monitor renal function (8) Tobacco use disorder: Counseled on cessation DVT Px: On coumadin Code status: Full Code PCP: Meche Disposition: [facility] patient Subjective Patient is seen and examined at bedside Dyspnea Improving Denies chest pain, dizziness, nausea, abd pain Offers no other complaints Physical Exam 2 Vital Signs (Past 24 Hours): Last Vital Signs Temp 36.4 C L 01/10/19 07:07 Pulse 93 H 01/10/19 08:00 Resp 20 01/10/19 07:07 BP 161/84 H 01/10/19 07:07 Pulse Ox 93 01/10/19 07:07 Physical Exam: Physical Exam: Vitals signs as noted above General Appearance:Obese, no apparent distress Head: normocephalic, Atraumatic Eyes: normal inspection, EOMI Neck: supple, Trachea midline Respiratory/Chest: Normal breath sounds, CTA Cardiovascular: Irregularly Irregular, No murmur Abdomen/GI:Soft, Non tender, Bowel sounds present Extremities/Musculoskelatal:normal inspection, chronic venous stasis changes, B/ L LE edema Neurologic/Psych:AAOX3, grossly no focal neurological deficits Skin: normal color, warm Results & Data Laboratory Results Short CBC 01/10/19 Range/Units 07:45 WBC 5.71 (4.8-10.8) K/uL Hgb 13.9 (12.0-16.0) g/dL Hct 44.8 (37-47) % Plt Count 110 L (130-400) K/uL BMP 01/10/19 07:45 Sodium 143 Potassium 3.7 Chloride 105 Carbon Dioxide 32 BUN 38 H Creatinine 0.95 Glucose 155 H Calcium 9.3 _ (1) Chest pain Chest pain type: unspecified Ischemic chest pain type: Qualified Code(s): R07.9 - Chest pain, unspecified (2) Diabetes mellitus, type II Diabetes mellitus jail insulin use: unspecified jail insulin use status Diabetes mellitus complication status: with kidney complications Diabetes mellitus complication detail: with chronic kidney disease Diabetic retinopathy severity: Proliferative retinopathy type: Diabetes mellitus macular edema: Laterality: Chronic kidney disease stage: (3) HTN (hypertension) Hypertension type: unspecified Qualified Code(s): I10 - Essential (primary) hypertension
[2019-01-10] MEDS ORDERED: WARFARIN SOD 4 MG TAB PO SCH (16:00)
[2019-01-10] MEDS: GABAPENTIN 300 MG CAP PO SCH (20:50)
[2019-01-11] MEDS: ACETAMINOPHEN 500 MG TAB PO PRN (01:12)
[2019-01-11 06:35] LABS: Hemoglobin 13.4 g/dL (12.0-16.0); Mean Corpuscular Hgb Conc 31.2 g/dL (32-36); Mean Corpuscular Volume 94.3 fL (80-100); Mean Platelet Volume 10.9 fL (7.4-10.4); Platelet Count 127 K/uL (130-400); RDW Coefficient of Variation 17.1 % (11.5-14.5); RDW Standard Deviation 58.3 fL (36.4-46.3); Red Blood Count 4.56 M/uL (4.2-5.4); White Blood Count 6.27 K/uL (4.8-10.8)
[2019-01-11 06:41] LABS: INR 1.6 (0.9-1.1); Prothrombin Time 15.4 Seconds (9.0-12.0)
[2019-01-11 07:11] LABS: BUN Creatinine Ratio 42.2 (10-20); Calcium 8.8 mg/dl (8.5-10.1); Creatinine Clr Calc Pharmacy 57.2 ml/min; Est GFR (African American) 60.7; Est GFR (Non-African American) 52.3; Potassium 3.6 mmol/L (3.5-5.1)
[2019-01-11] MEDS: ALLOPURINOL 300 MG TAB PO SCH (08:12)
[2019-01-11] MEDS: ATORVASTATIN 40 MG TAB PO SCH (08:12)
[2019-01-11] MEDS: NYSTATIN POWDER 15GM BTL EXT SCH (08:12)
[2019-01-11] MEDS: INSULIN GLARGINE SOLOSTAR 100 UNITS/ML 3 ML PEN SC SCH (08:12)
[2019-01-11] MEDS: CHOLECALCIFEROL 1,000 UNITS TAB PO SCH (08:12)
[2019-01-11] MEDS: INSULIN ASPART 100 UNITS/ML 3 ML PEN SC SCH ×2 (08:12→12:24)
[2019-01-11] MEDS: CYANOCOBALAMIN 500 MCG TABLET (VITAMIN B-12) PO SCH (08:12)
[2019-01-11] MEDS: ASPIRIN 81 MG ECTAB PO SCH (08:12)
[2019-01-11] MEDS: POTASSIUM CHLORIDE 10 MEQ TABCR PO SCH (08:12)
[2019-01-11] MEDS: METOPROLOL SUCC 50MG EXT REL TAB PO SCH (08:12)
--- NOTE | 2019-01-11 10:43 | Cardiology Progress Note ---
Date of Service January 11, 2019 Assessment & Plan (1) Acute exacerbation of CHF (congestive heart failure): has diuresed well does not examine as volume overloaded will resume outpatient torsemide 40mg po bid along with prn metolazone her case maker should be made aware of her discharge bmp and chf clinic f/u in 1 week, my office will call to schedule ok to d/c to home from cardiac standpoint once family is available (2) Chronic atrial fibrillation: INR of only 1.6 today will need close f/u with [facility] clinic as outpatient would give 6mg of coumadin this afternoon (3) Venous stasis ulcers of both lower extremities: (4) NUVIA on CPAP: Subjective Pt seen and examined, oob in chair, states that she feels well. Breathing has greatly improved and LE edema all but resolved. Denies cp, palpitations, lightheadedness or dizziness. Tele reviewed: afib rate controlled Physical Exam 2 Vital Signs (Past 24 Hours): Last Vital Signs Temp 36.4 C L 01/11/19 07:00 Pulse 93 H 01/11/19 08:00 Resp 20 01/11/19 07:00 BP 149/84 H 01/11/19 07:00 Pulse Ox 98 01/11/19 07:00 Physical Exam: General: Awake, alert and oriented x 3. No acute distress. HEENT: Normocephalic, atraumatic. Pupils equal, round and reactive to light and accommodation. Extraocular muscles are intact. Anicteric sclera. Moist mucous membranes. Neck: No JVD. No bruit. Cardiovascular: irregularly irregular, unable to appreciate murmur, rub or gallop. Pulmonary: Clear to auscultation bilaterally. No rales, rhonchi, or wheezing. Abdomen: Bowel sounds x 4, soft. No rebound, guarding or tenderness. No organomegaly. Extremities: No clubbing, cyanosis or edema. +2 pedal pulses bilaterally. Skin: Warm and dry.
--- NOTE | 2019-01-11 13:37 | Hospitalist Progress Note ---
Date of Service January 11, 2019 Assessment & Plan (1) Acute exacerbation of CHF (congestive heart failure): Patient is a 68 yr female with H/O Right heart failure, cor pulmonale, DM II, HTN, chronic A Fib on anticoagulation, NUVIA on CPAP, venous stasis ulcers, tobacco use and other problems presents with intermittent chest pain and dyspnea on exertion. Acute decompensated right-sided heart failure with possible diastolic heart failure --Last ECHO in Jul 2018:moderate LVH, preserved EF of 55-60%, severe pulm HTN ( 55-60 mmHg), mild AV sclerosis --CXR:Stable findings. Persistent cardiomegaly and mild pulmonary vascular congestion. No evidence of focal pulmonary consolidation --Received IV Lasix 40mg BID>> Plan to transition to Torsemide 40mg QAM and 20mg QPM (Home dose is 20mg BID) --Monitor I/Os, daily weight --Appreciate Cardiology Input --Needs FU with Cardiology upon discharge (2) Chest pain: Intermittent left sided sharp pains x 2 weeks Chest pain resolved Troponin X 3: Negative --Continue Aspirin, statin, Metoprolol --NTG PRN (3) Venous stasis ulcers of both lower extremities: Continue Wound care (4) Chronic respiratory failure with hypoxia: On home oxygen--2 liters at baseline (H/O Pickwickian syndrome, pulm HTN , restrictive lung disease, Severe chronic obstructive pulmonary disease.) --Continue supplemental Oxygen --Continue CPAP Q HS (5) Diabetes mellitus, type II: HbA1c 11.1 Hold home medications Continue Basal/bolus insulin per protocol Monitor BGs (6) Chronic atrial fibrillation: Rate controlled Continue metoprolol Supratherapeutic INR from coumadin use--Resolved Monitor INR:1.6 today Increase Coumadin to 5mg today (7) HTN (hypertension): Variable Continue metoprolol CKD II-III Monitor renal function (8) Tobacco use disorder: Counseled on cessation DVT Px: On coumadin Code status: Full Code PCP: Meche Disposition: [facility] patient Subjective Patient is seen and examined at bedside Doing well today Dyspnea very much Improved Denies chest pain, dizziness, nausea, abd pain Offers no other complaints Discussed with Cardiology Today Physical Exam 2 Vital Signs (Past 24 Hours): Last Vital Signs Temp 36.3 C L 01/11/19 11:27 Pulse 94 H 01/11/19 11:27 Resp 18 02/14/19 11:27 BP 142/81 H 01/11/19 11:27 Pulse Ox 98 01/11/19 11:27 Physical Exam: Physical Exam: Vitals signs as noted above General Appearance:Obese, no apparent distress Head: normocephalic, Atraumatic Eyes: normal inspection, EOMI Neck: supple, Trachea midline Respiratory/Chest: Normal breath sounds, CTA Cardiovascular: Irregularly Irregular, No murmur Abdomen/GI:Soft, Non tender, Bowel sounds present Extremities/Musculoskelatal:normal inspection, chronic venous stasis changes, B/ L LE edema Neurologic/Psych:AAOX3, grossly no focal neurological deficits Skin: normal color, warm Results & Data Laboratory Results Short CBC 01/11/19 Range/Units 06:15 WBC 6.27 (4.8-10.8) K/uL Hgb 13.4 (12.0-16.0) g/dL Hct 43.0 (37-47) % Plt Count 127 L (130-400) K/uL BMP 01/11/19 06:15 Sodium 143 Potassium 3.6 Chloride 106 Carbon Dioxide 33 H BUN 46 H Creatinine 1.08 Glucose 141 H Calcium 8.8 _ (1) Chest pain Chest pain type: unspecified Ischemic chest pain type: Qualified Code(s): R07.9 - Chest pain, unspecified (2) Diabetes mellitus, type II Diabetes mellitus mcc insulin use: unspecified mcc insulin use status Diabetes mellitus complication status: with kidney complications Diabetes mellitus complication detail: with chronic kidney disease Diabetic retinopathy severity: Proliferative retinopathy type: Diabetes mellitus macular edema: Laterality: Chronic kidney disease stage: (3) HTN (hypertension) Hypertension type: unspecified Qualified Code(s): I10 - Essential (primary) hypertension
--- NOTE | 2019-01-11 13:47 | Discharge Summary ---
Date of Service January 11, 2019 Admission HPI Per Admitting Provider This is a 68yo F with a PMH of R sided heart failure, cor pulmonale, DM II, HTN , chronic A Fib on anticoagulation, NUVIA on CPAP, venous stasis ulcers, tobacco use and other medical problems listed below who presents with intermittent chest pain and dyspnea on exertion. Patient was at wound care appointment to day and mentioned an episode of sharp left-sided chest pain that lasted for a minute and resolved spontaneously. Endorses weight gain over the past week and Toresmide was increased from 20mg to 40mg BID for 3 days over the weekend by [facility] provider. Has been experiencing worsening dyspnea on exertion for the past few days as well as BLE edema. Denies any fever, chills, lightheadedness, cough, wheezing, palpitations, nausea, vomiting or abdominal pain. Admission Exam Per Admitting Provider General Appearance: WD/WN, no apparent distress Head: normocephalic, atraumatic Eyes: normal inspection, PERRL, EOMI ENT: hearing grossly normal, pharynx normal (moist mucous membranes) Neck: supple, no JVD, no adenopathy Respiratory/Chest: Decreased breath sounds bilaterally. No wheezes, rales or rhonci observes. No respiratory distress or accessory muscle use. Saturating at 95% on 2L NC (baseline) Cardiovascular: regular rate, rhythm, no murmur, normal peripheral pulses, 1-2 + BLE edema Abdomen/GI: normal bowel sounds, soft, non-tender to palpation Extremities/Musculoskelatal: normal inspection, no calf tenderness, normal capillary refill, bilateral leg wraps Neurologic/Psych: alert, normal mood/affect, oriented x 3 Skin: normal color, warm/dry Principal Diagnosis Discharge Information Discharge Diagnosis Acute CHF Exacerbation Discharge Goals Decrease discomfort,Improve disease control, Improve function Discharge Activity Limitations Resume your previous activity Discharge Data Allergies Allergy/AdvReac Type Severity Reaction Status Date / Time Penicillins Allergy Mild Verified 01/08/19 12:31 rofecoxib Allergy Unknown Verified 01/08/19 12:31 sulindac Allergy Unknown Verified 01/08/19 12:31 Consultations 01/08/19 13:19 ED Decision to Admit Stat 01/08/19 16:29 Consult Cardiology Routine Consult Case Management - Discharge Planning Routine Procedures Performed CXR: Stable findings. Persistent cardiomegaly and mild pulmonary vascular congestion. No evidence of focal pulmonary consolidation Hospital Course (1) Acute exacerbation of CHF (congestive heart failure): Patient is a 68 yr female with H/O Right heart failure, cor pulmonale, DM II, HTN, chronic A Fib on anticoagulation, NUVIA on CPAP, venous stasis ulcers, tobacco use and other problems presents with intermittent chest pain and dyspnea on exertion. Acute decompensated right-sided heart failure with possible diastolic heart failure --Last ECHO in Jul 2018:moderate LVH, preserved EF of 55-60%, severe pulm HTN ( 55-60 mmHg), mild AV sclerosis --CXR:Stable findings. Persistent cardiomegaly and mild pulmonary vascular congestion. No evidence of focal pulmonary consolidation --Received IV Lasix 40mg BID>> Plan to transition to Torsemide 40mg QAM and 20mg QPM (Home dose is 20mg BID) --Monitor I/Os, daily weight --Appreciate Cardiology Input --Needs FU with Cardiology upon discharge (2) Chest pain: Intermittent left sided sharp pains x 2 weeks Chest pain resolved Troponin X 3: Negative --Continue Aspirin, statin, Metoprolol --NTG PRN (3) Venous stasis ulcers of both lower extremities: Continue Wound care (4) Chronic respiratory failure with hypoxia: On home oxygen--2 liters at baseline (H/O Pickwickian syndrome, pulm HTN , restrictive lung disease, Severe chronic obstructive pulmonary disease.) --Continue supplemental Oxygen --Continue CPAP Q HS (5) Diabetes mellitus, type II: HbA1c 11.1 Hold home medications Continue Basal/bolus insulin per protocol Monitor BGs (6) Chronic atrial fibrillation: Rate controlled Continue metoprolol Supratherapeutic INR from coumadin use--Resolved Monitor INR:1.6 today Increase Coumadin to 5mg today (7) HTN (hypertension): Variable Continue metoprolol CKD II-III Monitor renal function (8) Tobacco use disorder: Counseled on cessation DVT Px: On coumadin Code status: Full Code PCP: Meche Disposition: [facility] patient Total Time Total Time Spent Total Time Spent (In Minutes): 39 minutes Total Time Includes: Examination of the Patient, Discharge Planning, Medication Reconciliation, Communication With Other Providers and Other Discharge Plan Discharge Items Patient Disposition: Home - Home Health Services Reason For Visit: CHEST PAIN,DYSPNEA ON EXERTION Discharge Diagnosis: Acute CHF Exacerbation Discharge Goals: Decrease discomfort, Improve disease control and Improve function Activity: Resume your previous activity Non-emergency contact: Primary Care Provider and Unit Assistant Call non-emergency contact if: you have any medication questions, your symptoms worsen, your pain is not controlled, your pain is worsening, your pain is unusual for you and you have a fever Diet: Carb Consistent or DM2 and Heart Healthy Addtl Provider Instructions: Follow up with your PCP on 01/15/19 at 7:45AM Follow up with your Unit Assistant in 1 week Follow up with Cou[facility]in Clinic for adjust of your Coumadin dose as advised Seek immediate medical attention if your symptoms reoccur or worsen MEDICATION CHANGES: Your Torsemide is increased to 40mg AM and 20mg pm Call your Primary Care doctor if any of the following symptoms or problems start or get worse: * Shortness of breath or difficulty breathing * Wake up at night short of breath * Chest pain * Cough * Swelling of your hands, feet, or legs * More fatigued or tired with your normal activity * Palpitations - sudden fast heart beats WEIGHT * Weigh yourself every morning after using the bathroom. * Use the same scale. * Wear the same amount of clothing. * Write your weight down on a chart. * Call your Primary Care doctor if you gain more than 2-3 pounds in 1-2 days. MEDICATIONS * Use this discharge instruction sheet for medication instructions. * Take your medications at the time your doctor ordered. * Do not skip a dose of your medicines. * If you miss a dose of medicine, take it as soon as possible, but DO NOT DOUBLE A DOSE. * Read your medicine information when you get home. * Know all of the side effects of your medicine. If in doubt, ask your pharmacist * Call your Primary Care doctor's office if you have any side effects. * Be sure all of your doctors know what medicine and herbs you take (including cold, flu, and herbal medicine). Take the following with you to your follow-up doctor appointments: * Weight Chart * Medication List * List of questions Do not drink excessive alcohol, beer or wine. Prescriptions: Continue metolazone 2.5 mg tablet 2.5 mg PO DAILY PRN (Reason: Edema) RF: 0 metoprolol succinate 50 mg tablet extended release 24 hr 50 mg PO BID RF: 0 atorvastatin 40 mg Tablet 2 tab PO QAM RF: 0 prednisone 10 mg Tablet 10 mg PO DIRECTED PRN (Reason: RESCUE KIT) RF: 0 cyanocobalamin (vitamin B-12) [Vitamin B-12] 1,000 mcg Tablet 1,000 mcg PO QAM RF: 0 aspirin 81 mg Tablet,Delayed Release (Dr/Ec) 81 mg PO QAM RF: 0 tramadol 50 mg Tablet 50 mg PO Q6H PRN (Reason: Pain) RF: 0 nitroglycerin [Nitrostat] 0.4 mg Tablet, Sublingual 1 tab Sublingual DIRECTED PRN (Reason: Chest Pain) RF: 0 allopurinol 300 mg Tablet 300 mg PO QAM RF: 0 gabapentin 100 mg Capsule 300 mg PO HS RF: 0 cholecalciferol (vitamin D3) [Vitamin D3] 1,000 unit Capsule 2,000 unit PO QAM RF: 0 insulin glargine [Lantus Solostar U-100 Insulin] 100 unit/mL (3 mL) Insulin Pen 40 unit SUBCUT QAM RF: 0 warfarin [Coumadin] 3 mg Tablet 4.5 mg PO HS RF: 0 potassium chloride 10 mEq tablet extended release 10 meq PO QAM RF: 0 acetaminophen [Tylenol Extra Strength] 500 mg Tablet 1,000 mg PO UD RF: 0 spironolactone 25 mg tablet 12.5 mg PO MOWEFR@1200 RF: 0 Changed torsemide 20 mg Tablet 20 mg PO DIRECTED Qty: 0 RF: 0 Discontinued torsemide 20 mg Tablet 20 mg PO BID RF: 0 Stand-Alone Forms: [facility] Discharge Orders: Discharge Order (Routine); Ordered 01/11/19 Ordered By: Saurabh Willis Admission Data Admit Date/Time: 01/08/19 15:04 Attending Provider: Saurabh Willis Admit Provider: Liam Mosley Primary Care Provider: Rosana Mcgregor Other Providers: Liam Mosley ; Johnathon Jackson ; Franky Katz Service: Telemetry Other Interventions: Discharge Summary Assessment (RN) Last Done: 01/11/19 13:53 Pending Studies at Discharge: No DC Date/Time DO NOT enter until pt leaves facility: 01/11/19 14:17
[2019-01-11] MEDS ORDERED: WARFARIN SOD 4 MG TAB PO SCH (16:00)
== END 2019-01-11 14:17 | disposition home health service (06) | DRG 291 ==
LOC: ED 11:09 → SUATTDRO 15:04 → 2N 15:04

== ENCOUNTER 2019-04-24 17:29 | Inpatient (IN) ==
--- NOTE | 2019-04-24 18:30 | XRay Report ---
XR chest 1V portable CLINICAL HISTORY: Chest Pain COMPARISON STUDY: Chest radiograph January 08, 2019. FINDINGS: Lung volumes are normal. There is no pneumothorax or pleural effusion. Linear left midlung opacity suggests atelectasis or scarring. There is no consolidation to suggest pneumonia. Cardiomegal y is unchanged. There is no evidence for pulmonary edema. IMPRESSION: No acute cardiopulmonary findings. Stable cardiomegaly. No change in appearance of the c hest. Electronically signed by: Ladarius Nguyen M.D. 04/24/2019 6:28 PM
[2019-04-24 19:25] LABS: Basophils # (auto) 0.03 K/uL (0-0.2); Basophils % (auto) 0.4 %; Eosinophils % (auto) 1.3 %; Hematocrit (blood only) 42.3 % (37-47); Hemoglobin 14.4 g/dL (12.0-16.0); Immature Granulocytes # (auto) 0.04 K/uL (0.00-0.02); Immature Granulocytes % (auto) 0.5 %; Lymphocytes # (auto) 1.87 K/uL (1.2-3.4); Mean Corpuscular Volume 92.6 fL (80-100); Mean Platelet Volume 10.1 fL (7.4-10.4); Monocytes # (auto) 0.45 K/uL (0.11-0.59); Monocytes % (auto) 5.8 %; Neutrophils # (auto) 5.31 K/uL (1.4-6.5); Platelet Count 155 K/uL (130-400); RDW Coefficient of Variation 14.6 % (11.5-14.5); RDW Standard Deviation 49.2 fL (36.4-46.3); Red Blood Count 4.57 M/uL (4.2-5.4)
[2019-04-24 19:33] LABS: Base Excess VBG 5.9 mEq/L; Oxygen Saturation VBG 61.9 %; pH VBG 7.42 (7.36-7.41)
[2019-04-24 19:34] LABS: INR 1.6 (0.9-1.1); Prothrombin Time 15.6 Seconds (9.0-12.0)
[2019-04-24 19:43] LABS: Albumin Level 3.2 gm/dl (3.4-5.0); BUN Creatinine Ratio 30.2 (10-20); Calcium 9.7 mg/dl (8.5-10.1); Creatinine Clr Calc Pharmacy 54.1 ml/min; Est GFR (African American) 56.2; Est GFR (Non-African American) 48.5; Magnesium 1.7 mg/dl (1.8-2.4); Potassium 3.4 mmol/L (3.5-5.1)
[2019-04-24 19:48] LABS: Albumin Globulin Ratio 0.9 (0.9-2); Bilirubin,Total 0.4 mg/dl (0.2-1); Globulin 3.6 gm/dl (2.5-4.0); Phosphorus 3.3 mg/dl (2.5-4.9); Total Protein 6.8 gm/dl (6.4-8.2); Troponin I 0.017 ng/ml (0-0.045)
[2019-04-24] MEDS ORDERED: MAGNESIUM SULFATE / D5W 1 GM/100 ML BAG IV ONE (19:57)
[2019-04-24] MEDS ORDERED: FUROSEMIDE 40 MG/4 ML VIAL IV STA (19:57)
[2019-04-24] MEDS ORDERED: POTASSIUM CHLORIDE 20 MEQ TABCR PO STA (19:57)
[2019-04-24] MEDS ORDERED: VANCOMYCIN CONSULT ACTIVE PRN (21:05)
[2019-04-24] MEDS ORDERED: VANCOMYCIN HCL 2,250 MG in SODIUM CHLORIDE 0.9% 500 ML IV ONE (21:05)
--- NOTE | 2019-04-24 22:02 | History & Physical Report ---
Date of Service April 24, 2019 Assessment & Plan (1) Acute exacerbation of CHF (congestive heart failure): (2) Right-sided heart failure: This is a 68yo F with a PMH of R sided heart failure, cor pulmonale, DM II, HTN, chronic A Fib on anticoagulation, PVD with recent RFA of right greater saphenous vein by Dr. Holder on 04/06/19, venous ulcers, NUVIA on CPAP, tobacco use and other medical problems listed below who presents with dyspnea on exertion and BLE pain and was found to have acute decompensated CHF and BLE cellulitis. -Dyspnea on exertion, orthopnea x 3 days, 8 lb weight gain -Chest x-ray without acute cardiopulmonary findings, stable cardiomegaly. Venous Doppler negative for DVT bilaterally -Work up: ECG with A fib at 105 bpm, BNP 1966, troponin negative -Echo from Jul 2018 with EF 55-59%, mild aortic valve sclerosis without stenosis, moderate mitral regurgitation, mild to moderate tricuspid regurgitation, right ventricular systolic pressure is elevated at 50-60 mmHg -Home regimen includes Torsemide 40mg BID, Spironolactone 12.5mg daily, Metolazone 2.5mg daily PRN as directed -See attending addendum for plan details (3) Cellulitis: (4) Chronic venous insufficiency: H/o chronic venous stasis wounds that have healed. Discharged from wound care last month -Recent RFA of right greater saphenous vein by Dr. Holder on 04/06/19 -No leukocytosis -See attending addendum for plan details (5) Chronic respiratory failure with hypoxia: Saturating at 99% on 2L NC O2 (baseline) (6) Chronic atrial fibrillation: EKG with A Fib at 105 bpm -Continue Toprol -Anticoagulated with coumadin. INR subtherapeutic at 1.6 -Has not yet taken tonight's coumadin dose (7) Hypomagnesemia: Replaced (8) Diabetes mellitus, type II: A1c of 9.1 in February 2019 -Basal bolus insulin while in-patient -BSG AC HS (9) HTN (hypertension): Home medications include Toprol, spironolactone (10) Dyslipidemia: Continue statin (11) NUVIA on CPAP: CPAP HS (12) Tobacco use disorder: Patient seen in collaboration with Dr. Addison. Please see addendum. History of Present Illness Chief Complaint: SOB, BLE edema Primary Care Provider: Edison Mathis MD This is a 68yo F with a PMH of R sided heart failure, cor pulmonale, DM II, HTN, chronic A Fib on anticoagulation, PVD with recent RFA of right greater saphenous vein by Dr. Holder on 04/06/19, venous ulcers, NUVIA on CPAP, tobacco use and other medical problems listed below who presents with dyspnea on exertion and BLE pain. Patient was admitted for acute on chronic CHF exacerbation in December 2018 and is followed by [facility] at home as well. Has noted worsening dyspnea on exertion for the past 3 days and has required an extra pillow to prop herself up at night. Is on 2 L nasal cannula O2 chronically but feels herself becoming short of breath when speaking. Also notes lower extremity edema and pain with overlying redness and warmth over past few days. No fever or chills or open wounds. Recently underwent ablation of right greater saphenous vein by Dr. Holder a few weeks ago and that incision has healed without issue. Denies lightheadedness, headache, chest pain, palpitations, nausea, vomiting, abdominal pain, dysuria, diarrhea or constipation. Patient lives alone but niece helps manage medications. Has not yet taken the evening dose medications. In ED, patient found to be hypertensive and tachycardic around 105. Saturating at 99% on 2L NC O2 (baseline). BNP 1966. Chest x-ray without acute cardiopulmonary findings, stable cardiomegaly. Venous Doppler negative for DVT bilaterally. Has gained approximately 8 lbs since most recent weight in [facility] from late February. Allergies Allergy/AdvReac Type Severity Reaction Status Date / Time Penicillins Allergy Mild Verified 04/24/19 17:44 rofecoxib Allergy Unknown Verified 04/24/19 17:44 sulindac Allergy Unknown Verified 04/24/19 17:44 Home Medications Home Medications Medication Instructions Recorded Confirmed Type Lantus Solostar U-100 Insulin 40 unit SUBCUT QAM 08/11/18 04/24/19 History allopurinol 300 mg PO QAM 08/11/18 04/24/19 History aspirin 81 mg PO QAM 08/11/18 04/24/19 History atorvastatin 2 tab PO QAM 08/11/18 04/24/19 History cholecalciferol (vitamin D3) 2,000 unit PO QAM 08/11/18 04/24/19 History [Vitamin D3] cyanocobalamin (vitamin B-12) 1,000 mcg PO QAM 08/11/18 04/24/19 History [Vitamin B-12] gabapentin 300 mg PO HS 08/11/18 04/24/19 History nitroglycerin [Nitrostat] 1 tab SUBLINGUAL DIRECTED PRN 08/11/18 04/24/19 History tramadol 50 mg PO Q6H PRN 08/11/18 04/24/19 History warfarin [Coumadin] 4.5 mg PO SUTUTH@2100 08/11/18 04/24/19 History metolazone 2.5 mg tablet 2.5 mg PO DAILY PRN 01/01/19 04/24/19 History metoprolol succinate ER 50 mg 50 mg PO BID 01/01/19 04/24/19 History tablet,extended release 24 hr acetaminophen [Tylenol Extra 1,000 mg PO UD 01/08/19 04/24/19 History Strength] potassium chloride 10 meq PO QAM 01/08/19 04/24/19 History spironolactone 12.5 mg PO DAILY 01/08/19 04/24/19 History torsemide 40 mg PO BID 04/24/19 04/24/19 History warfarin 3 mg PO [id number]@209904/24/19 04/24/19 History Past Med/Surg History Medical History Tobacco use disorder (Chronic) NUVIA on CPAP (Chronic) Chronic respiratory failure with hypoxia (Chronic) Pickwickian syndrome (Chronic) Chronic atrial fibrillation (Chronic) Lumbar radiculopathy (Chronic) Anemia (Chronic 11/27/13) Hypomagnesemia (Chronic) Hypocalcemia (Chronic) Diabetes mellitus, type II (Chronic) Dyslipidemia (Chronic) HTN (hypertension) (Chronic) Polymyalgia rheumatica (Chronic) Right-sided heart failure (Chronic) Surgical History History of hysterectomy (Resolved) History of total knee replacement (Resolved) Family History Father Heart disease Stroke Mother Diabetes Social History Preferred Language: Mongolian Communication Ability: Effective Beliefs That Will Affect Care: None Current Living Situation: Alone Other Information That Helps Us Care for You: No Feels Safe at Home: Yes Safety Concerns: Feels Safe At This Time Smoking Status: Current every day smoker Tobacco Type: cigarettes Cigarettes Per Day: less then 10 Second Hand Exposure: No Hx Alcohol Use: No Hx Substance Use: No Review of Systems Review of Systems: At least ten systems reviewed and negative except as noted in the HPI. Physical Exam Physical Exam: General Appearance: WD/WN, no apparent distress, morbidly obese, becomes SOB when speaking Head: normocephalic, atraumatic Eyes: normal inspection, PERRL, EOMI ENT: hearing grossly normal, pharynx normal (moist mucous membranes) Neck: supple, no JVD, no adenopathy Respiratory/Chest: Decreased breath sounds bilaterally with fine bibasilar crackles and scattered wheezing. No rhonci observed. No respiratory distress or accessory muscle use. Cardiovascular: irregular rate & rhythm, no murmur appreciated, normal peripheral pulses, 2+ BLE edema Abdomen/GI: normal bowel sounds, soft, non-tender to palpation Extremities/Musculoskelatal: normal inspection, no calf tenderness, normal capillary refill, bilateral leg wraps Neurologic/Psych: alert, normal mood/affect, oriented x 3 Skin: normal color, warm/dry. BLE erythematous and warm with 2+ edema bilaterally. No wounds noted. Tender to palpation Results & Data Vital Signs (Past 12 Hours) Vital Signs Temp Pulse Pulse Resp BP BP Pulse Ox 04/24/19 20:04 107 H 22 143/60 H 100 04/24/19 19:07 84 24 145/102 H 99 04/24/19 19:00 99 H 25 H 98 04/24/19 18:30 105 H 22 96 04/24/19 18:00 103 H 26 H 97 04/24/19 17:57 97 04/24/19 17:50 112 H 24 96 04/24/19 17:48 111 H 27 H 131/96 96 04/24/19 17:44 36.7 C 111 H 22 137/86 93 Laboratory Results Short CBC 04/24/19 Range/Units 19:00 WBC 7.80 (4.8-10.8) K/uL Hgb 14.4 (12.0-16.0) g/dL Hct 42.3 (37-47) % Plt Count 155 (130-400) K/uL BMP 04/24/19 19:00 Sodium 142 Potassium 3.4 L Chloride 103 Carbon Dioxide 30 BUN 35 H Creatinine 1.15 Glucose 272 H Calcium 9.7 Cardiac Enzymes 04/24/19 Range/Units 19:00 Troponin I 0.017 (0-0.045) ng/ml Liver Function 04/24/19 Range/Units 19:00 Total Bilirubin 0.4 (0.2-1) mg/dl AST 13 L (15-37) U/L ALT 18 (12-78) U/L Alkaline Phosphatase 114 (45-117) U/L Albumin 3.2 L (3.4-5.0) gm/dl Diagnostic Findings CXR: IMPRESSION: No acute cardiopulmonary findings. Stable cardiomegaly. No change in appearance of the chest. BLE venous doppler: IMPRESSION: No evidence of deep venous thrombus within the right lower extremity. ECG Rhythm: atrial fibrillation Supervising Physician Co-Signing Physician Notes IM ATTENDING : Patient seen and examined. History obtained from patient and records. Preceding documentation by Ms. Odalis Rdz PA-C reviewed. FINAL ASSESSMENT AND PLAN as follows : Decompensated heart failure EF 55 to 60%, TTE July 2018 Predominantly right-sided heart failure symptoms given absence of congestion on CXR hx chronic respiratory failure secondary to cor pulmonale, COPD on home O2, NUVIA on CPAP ? Compliance, uncontrolled BP from pain from RLE cellulitis (no sepsis) as precipitants of decompensation AFib on Coumadin, rate slightly elevated secondary to RLE discomfort, INR slightly subtherapeutic DM2 on oral meds, suboptimal although better control of late as of recent outpatient hemoglobin A1c of 9.1 last February 2019 LE PVD status post recent surgery ongoing tobacco abuse. 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
--- NOTE | 2019-04-24 22:10 | Ultrasound Report ---
RIGHT LOWER EXTREMITY VENOUS DOPPLER CLINICAL HISTORY: Right lower extremity pain and swelling. COMPARISON STUDY: Right lower extremity venous Doppler February 05, 2019 TECHNIQUE: Sonography of the deep venous system of the right lower extremity was performed. Compress ion and augmentation were evaluated. FINDINGS: The right common femoral, superficial femoral and popliteal veins were compressible. Augme ntation was normal. Flow was shown within the deep calf vessels. IMPRESSION: No evidence of deep venous thrombus within the right lower extremity. Electronically signed by: Ladarius Nguyen M.D. 04/24/2019 10:09 PM
--- NOTE | 2019-04-24 22:57 | Emergency Department Note ---
Entered by Laurie Rankin acting as a scribe for Javy Quinteros MD History of Present Illness General Chief complaint: Shortness of Breath/Dyspnea Stated complaint: SOB, EDEMA TO LEGS Source: patient and EMS History of Present Illness Onset (ago): week(s) 1 Location: chest (shortness of breath) Pain Consistency: + other (worsening) Relieved By: + none Associated symptoms: + denies other symptoms (diarrhea) and + other (leg swelling, tiredness, sweating, and leg pain); no fever/chills and no nausea/vomiting The patient is a 68 year old F who presents to the Emergency Room with complaints of worsening shortness of breath that started 1 week ago. The majority of the HPI was provided by EMS. The map and chart mounter states that the patients shortness of breath worsens with exertion. He notes that the patient has a history of heart failure, COPD, and A fib. He adds that the patient is on Lasix. The patient states that she does not know if she gained any water weigh recently. She notes that she did not weight herself today because she was tired. She states that she is currently experiencing leg swelling, tiredness, sweating, and leg pain. She denies experiencing nausea, vomiting, diarrhea, and a fever. She notes that she is on oxygen all of the time. She adds that she uses a CPAP at night. Home Medications Home Medications Medication Instructions Recorded Confirmed Type Lantus Solostar U-100 Insulin 40 unit SUBCUT QAM 08/11/18 04/24/19 History allopurinol 300 mg PO QAM 08/11/18 04/24/19 History aspirin 81 mg PO QAM 08/11/18 04/24/19 History atorvastatin 2 tab PO QAM 08/11/18 04/24/19 History cholecalciferol (vitamin D3) 2,000 unit PO QAM 08/11/18 04/24/19 History [Vitamin D3] cyanocobalamin (vitamin B-12) 1,000 mcg PO QAM 08/11/18 04/24/19 History [Vitamin B-12] gabapentin 300 mg PO HS 08/11/18 04/24/19 History nitroglycerin [Nitrostat] 1 tab SUBLINGUAL DIRECTED PRN 08/11/18 04/24/19 Hi story tramadol 50 mg PO Q6H PRN 08/11/18 04/24/19 History warfarin [Coumadin] 4.5 mg PO [id number]/11/[id number] 04/24/19 History metolazone 2.5 mg tablet 2.5 mg PO DAILY PRN 01/01/19 04/24/19 History metoprolol succinate ER 50 mg 50 mg PO BID 01/01/19 04/24/19 History tablet,extended release 24 hr acetaminophen [Tylenol Extra 1,000 mg PO UD 01/08/19 04/24/19 History Strength] potassium chloride 10 meq PO QAM 01/08/19 04/24/19 History spironolactone 12.5 mg PO DAILY 01/08/19 04/24/19 History torsemide 40 mg PO BID 04/24/19 04/24/19 History warfarin 3 mg PO [id number]/24/19 04/24/19 History Allergies Allergy/AdvReac Type Severity Reaction Status Date / Time Penicillins Allergy Mild Verified 04/24/19 17:44 rofecoxib Allergy Unknown Verified 04/24/19 17:44 sulindac Allergy Unknown Verified 04/24/19 17:44 Past Med/Surg History Medical History Tobacco use disorder (Chronic) NUVIA on CPAP (Chronic) Chronic respiratory failure with hypoxia (Chronic) Pickwickian syndrome (Chronic) Chronic atrial fibrillation (Chronic) Lumbar radiculopathy (Chronic) Anemia (Chronic 11/27/13) Hypomagnesemia (Chronic) Hypocalcemia (Chronic) Diabetes mellitus, type II (Chronic) Dyslipidemia (Chronic) HTN (hypertension) (Chronic) Polymyalgia rheumatica (Chronic) Right-sided heart failure (Chronic) Surgical History History of hysterectomy (Resolved) History of total knee replacement (Resolved) Family History Father Heart disease Stroke Mother Diabetes Social History Preferred Language: Lithuanian Communication Ability: Effective Beliefs That Will Affect Care: None Current Living Situation: Alone Other Information That Helps Us Care for You: No Feels Safe at Home: Yes Safety Concerns: Feels Safe At This Time Smoking Status: Current every day smoker Tobacco Type: cigarettes Cigarettes Per Day: less then 10 Second Hand Exposure: No Hx Alcohol Use: No Hx Substance Use: No Review of Systems See HPI for pertinent positives & negatives. and A total of 10 systems reviewed and were otherwise negative Physical Exam Vital Signs Vital Signs - 24 hr 04/24/19 17:44 04/24/19 17:48 04/24/19 17:50 Temperature 36.7 C Temperature Source Oral Sepsis Recent Fever Within 48 Hours No Sepsis Action Taken by Nursing No Action Required Pulse Rate 111 H 111 H 112 H Pulse Rate [Finger] Pulse Rate from SpO2 Sensor 110 H 105 H Respiratory Rate 22 27 H 24 Respiratory Depth Normal Blood Pressure 137/86 131/96 Blood Pressure [Right Arm] Blood Pressure Mean 103 107 Blood Pressure Mean [Right Arm] Pulse Oximetry 93 96 96 Oxygen Delivery Method Nasal Cannula Oxygen Flow Rate 2 04/24/19 17:57 04/24/19 18:00 04/24/19 18:30 Temperature Temperature Source Sepsis Recent Fever Within 48 Hours Sepsis Action Taken by Nursing Pulse Rate 103 H 105 H Pulse Rate [Finger] Pulse Rate from SpO2 Sensor 98 H 107 H Respiratory Rate 26 H 22 Respiratory Depth Blood Pressure Blood Pressure [Right Arm] Blood Pressure Mean Blood Pressure Mean [Right Arm] Pulse Oximetry 97 97 96 Oxygen Delivery Method Nasal Cannula Oxygen Flow Rate 3 04/24/19 19:00 04/24/19 19:07 04/24/19 20:04 Temperature Temperature Source Sepsis Recent Fever Within 48 Hours Sepsis Action Taken by Nursing Pulse Rate 99 H 84 Pulse Rate [Finger] 107 H Pulse Rate from SpO2 Sensor 110 H 95 H Respiratory Rate 25 H 24 22 Respiratory Depth Blood Pressure 145/102 H Blood Pressure [Right Arm] 143/60 H Blood Pressure Mean 116 Blood Pressure Mean [Right Arm] 87 Pulse Oximetry 98 99 100 Oxygen Delivery Method Nasal Cannula Nasal Cannula Nasal Cannula Oxygen Flow Rate 3 3 2 04/24/19 22:27 04/24/19 23:04 Temperature Temperature Source Sepsis Recent Fever Within 48 Hours Sepsis Action Taken by Nursing Pulse Rate Pulse Rate [Finger] 100 H 100 H Pulse Rate from SpO2 Sensor Respiratory Rate 25 H Respiratory Depth Blood Pressure Blood Pressure [Right Arm] 146/119 H Blood Pressure Mean Blood Pressure Mean [Right Arm] 128 Pulse Oximetry 99 93 Oxygen Delivery Method Nasal Cannula Nasal Cannula Oxygen Flow Rate 2 2 GENERAL: Awake, alert, chronically ill-appearing, no distress HENT: Normocephalic, atraumatic. TM's normal. EYES: PERRL. EOMI. Normal conjunctiva. Sclera non-icteric. NECK: Supple. No nuchal rigidity. FROM. No JVD or bruit. RESPIRATORY: Diminished breath sounds throughout. CARDIAC: RRR. ABDOMEN: Soft, non distended. No tenderness to palpation. No rebound or guarding. No masses. RECTAL: Deferred. MUSCULOSKELETAL: Unremarkable. 3+ bilateral lower extremity pitting edema. No discoloration. Gross motor strength symmetric. NEURO: Normal sensorium. No sensory or motor deficits noted. SKIN: Mild erythema, warmth and ttp of right lower leg. No jaundice noted. LYMPH: No adenopathy Course 1734: The patient was evaluated in room C12B. A complete history and physical exam was performed. 2111: I reviewed the patient's case with Dr. Fahad Addison [facility]. He will evaluate the patient for further management. Consultations Consultation #1: I reviewed the patient's case with Dr. Fahad Addison [facility]. He will evaluate the patient for further management. Time: 21:12 Administered Medications Gabapentin (Neurontin) 300 mg PO HS CARLEY Stop: 05/25/19 00:33 Last Admin: 04/25/19 01:17 Dose: 300 mg Documented by: [id number] Insulin Aspart (Novolog Flexpen) 0 units SC ACHS CARLEY Stop: 05/25/19 00:33 Last Admin: 04/25/19 01:19 Dose: 5 units Documented by: [id number] Cosigned by: [id number] Metoprolol Succinate (Toprol Xl) 50 mg PO BID CARLEY Stop: 05/24/19 21:44 Last Admin: 04/24/19 23:34 Dose: Not Given Documented by: [id number] Discontinued Medications Furosemide (Lasix) 40 mg IV NOW STA Stop: 04/24/19 19:58 Last Admin: 04/24/19 20:04 Dose: 40 mg Documented by: [id number] Magnesium Sulfate/Dextrose (Magnesium Sulfate / D5w) 1 gm in 100 mls @ 100 mls/hr IV ONE ONE Stop: 04/24/19 20:56 Last Infusion: 04/24/19 21:11 Dose: 0 mls/hr Documented by: [id number] Admin: 04/24/19 20:04 Dose: 100 mls/hr Documented by: [id number] Vancomycin HCl 2,250 mg/ (Sodium Chloride) 545 mls @ 200 mls/hr IV NOW ONE; Protocol Stop: 04/24/19 23:48 Last Admin: 04/24/19 22:27 Dose: 200 mls/hr Documented by: [id number] Insulin Glargine (Lantus Solostar Pen) 10 units SQ NOW STA Stop: 04/25/19 00:35 Last Admin: 04/25/19 01:17 Dose: 10 units Documented by: [id number] Cosigned by: [id number] Ipratropium Barry (Atrovent 0.02% 0.5mg/2.5ml) 0.5 mg INH NOW STA Stop: 04/25/19 00:48 Last Admin: 04/25/19 01:44 Dose: 0.5 mg Documented by: [id number] Levalbuterol HCl (Xopenex 1.25mg/0.5ml Neb) 1.25 mg INH NOW STA Stop: 04/25/19 00:48 Last Admin: 04/25/19 01:44 Dose: 1.25 mg Documented by: [id number] Metoprolol Succinate (Toprol Xl) Confirm Administered Dose 50 mg .ROUTE .STK-MED ONE Stop: 04/24/19 23:23 Last Admin: 04/24/19 23:24 Dose: 50 mg Documented by: [id number] Potassium Chloride (Klor-Con M20) 40 meq PO NOW STA Stop: 04/24/19 19:58 Last Admin: 04/24/19 20:04 Dose: 40 meq Documented by: [id number] Potassium Chloride (Klor-Con M20) 40 meq PO NOW STA Stop: 04/25/19 00:35 Last Admin: 04/25/19 01:17 Dose: 40 meq Documented by: [id number] Tramadol HCl (Ultram) 50 mg PO NOW STA Stop: 04/24/19 23:56 Last Admin: 04/25/19 00:03 Dose: 50 mg Documented by: [id number] Warfarin Sodium (Coumadin) 5 mg PO NOW STA Stop: 04/25/19 00:01 Last Admin: 04/25/19 00:03 Dose: 5 mg Documented by: [id number] Cosigned by: [id number] Medical Decision Making Differential Diagnosis Differential diagnosis includes: infections, reactive airway disease, pneumonia, pneumothorax, COPD, CHF, cardiac ischemia, pulmonary embolism, musculoskeletal, gastrointestinal, as well as others were entertained. Medical Records Attestation: I reviewed the patient's medical records. Home Medications Current Medication List: was personally reviewed by me Laboratory Data Attestation: I reviewed the patient's lab results. Result diagrams: 04/24/19 19:00 04/24/19 19:00 Lab Results 04/24/19 04/24/19 04/24/19 Range/Units 19:00 19:00 19:00 WBC 7.80 (4.8-10.8) K/uL RBC 4.57 (4.2-5.4) M/uL Hgb 14.4 (12.0-16.0) g/dL Hct 42.3 (37-47) % MCV 92.6 (80-100) fL MCH 31.5 (25-34) pg MCHC 34.0 (32-36) g/dL RDW Std Deviation 49.2 H (36.4-46.3) fL RDW Coeff of Patrick 14.6 H (11.5-14.5) % Plt Count 155 (130-400) K/uL MPV 10.1 (7.4-10.4) fL Immature Gran % (Auto) 0.5 % Neut % (Auto) 68.0 % Lymph % (Auto) 24.0 % Jasper % (Auto) 5.8 % Eos % (Auto) 1.3 % Baso % (Auto) 0.4 % Immature Gran # (Auto) 0.04 H (0.00-0.02) K/uL Neut # (Auto) 5.31 (1.4-6.5) K/uL Lymph # (Auto) 1.87 (1.2-3.4) K/uL Jasper # (Auto) 0.45 (0.11-0.59) K/uL Eos # (Auto) 0.10 (0-0.5) K/uL Baso # (Auto) 0.03 (0-0.2) K/uL PT 15.6 H (9.0-12.0) Seconds INR 1.6 H (0.9-1.1) VBG pH (7.36-7.41) VBG pCO2 (38-50) mmHg VBG pO2 mmHg VBG HCO3 mmol/L VBG O2 Saturation % VBG Base Excess mEq/L Barometric Pressure mm/Hg Sodium 142 (136-145) mmol/L Potassium 3.4 L (3.5-5.1) mmol/L Chloride 103 (98-107) mmol/L Carbon Dioxide 30 (21-32) mmol/L Anion Gap 9.0 (3-11) BUN 35 H (7-18) mg/dl Creatinine 1.15 (0.6-1.2) mg/dl Est Cr Clr Drug Dosing 54.1 ml/min Est GFR ( Amer) 56.2 Est GFR (Non-Af Amer) 48.5 BUN/Creatinine Ratio 30.2 H (10-20) Glucose 272 H (70-99) mg/dl Calcium 9.7 (8.5-10.1) mg/dl Phosphorus 3.3 (2.5-4.9) mg/dl Magnesium 1.7 L (1.8-2.4) mg/dl Total Bilirubin 0.4 (0.2-1) mg/dl AST 13 L (15-37) U/L ALT 18 (12-78) U/L Alkaline Phosphatase 114 (45-117) U/L Troponin I 0.017 (0-0.045) ng/ml NT-Pro-B Natriuret Pep 1966 H (0-900) pg/ml Total Protein 6.8 (6.4-8.2) gm/dl Albumin 3.2 L (3.4-5.0) gm/dl Globulin 3.6 (2.5-4.0) gm/dl Albumin/Globulin Ratio 0.9 (0.9-2) Lipase 214 (73-393) U/L 04/24/19 Range/Units 19:19 WBC (4.8-10.8) K/uL RBC (4.2-5.4) M/uL Hgb (12.0-16.0) g/dL Hct (37-47) % MCV (80-100) fL MCH (25-34) pg MCHC (32-36) g/dL RDW Std Deviation (36.4-46.3) fL RDW Coeff of Patrick (11.5-14.5) % Plt Count (130-400) K/uL MPV (7.4-10.4) fL Immature Gran % (Auto) % Neut % (Auto) % Lymph % (Auto) % Jasper % (Auto) % Eos % (Auto) % Baso % (Auto) % Immature Gran # (Auto) (0.00-0.02) K/uL Neut # (Auto) (1.4-6.5) K/uL Lymph # (Auto) (1.2-3.4) K/uL Jasper # (Auto) (0.11-0.59) K/uL Eos # (Auto) (0-0.5) K/uL Baso # (Auto) (0-0.2) K/uL PT (9.0-12.0) Seconds INR (0.9-1.1) VBG pH 7.42 H (7.36-7.41) VBG pCO2 50 (38-50) mmHg VBG pO2 31 mmHg VBG HCO3 32 mmol/L VBG O2 Saturation 61.9 % VBG Base Excess 5.9 mEq/L Barometric Pressure 724.4 mm/Hg Sodium (136-145) mmol/L Potassium (3.5-5.1) mmol/L Chloride (98-107) mmol/L Carbon Dioxide (21-32) mmol/L Anion Gap (3-11) BUN (7-18) mg/dl Creatinine (0.6-1.2) mg/dl Est Cr Clr Drug Dosing ml/min Est GFR ( Amer) Est GFR (Non-Af Amer) BUN/Creatinine Ratio (10-20) Glucose (70-99) mg/dl Calcium (8.5-10.1) mg/dl Phosphorus (2.5-4.9) mg/dl Magnesium (1.8-2.4) mg/dl Total Bilirubin (0.2-1) mg/dl AST (15-37) U/L ALT (12-78) U/L Alkaline Phosphatase (45-117) U/L Troponin I (0-0.045) ng/ml NT-Pro-B Natriuret Pep (0-900) pg/ml Total Protein (6.4-8.2) gm/dl Albumin (3.4-5.0) gm/dl Globulin (2.5-4.0) gm/dl Albumin/Globulin Ratio (0.9-2) Lipase (73-393) U/L Imaging Data Radiologist's Impression: Radiology results as stated below per my review and the radiologist's interpretation: XR chest 1V portable CLINICAL HISTORY: Chest Pain COMPARISON STUDY: Chest radiograph January 08, 2019. FINDINGS: Lung volumes are normal. There is no pneumothorax or pleural effusion. Linear left midlung opacity suggests atelectasis or scarring. There is no consolidation to suggest pneumonia. Cardiomegaly is unchanged. There is no evidence for pulmonary edema. IMPRESSION: No acute cardiopulmonary findings. Stable cardiomegaly. No change in appearance of the chest. Electronically signed by: Ladarius Nguyen M.D. 04/24/2019 6:28 PM ECG Data Attestation: I personally reviewed and interpreted this ECG as follows: Indication: SOB/dyspnea Rate (beats per minute): 105 Rhythm: atrial fibrillation Findings: + other (normal axis); no acute ischemic change Blood Pressure Blood Pressure Findings: Elevated blood pressure Blood Pressure Disposition: further management by hospitalist HILDA Narrative The patient is a pleasant 68 y/o wman with a pmhx of CHF, afib on coumadin, IDDM2, HTN, HLD who presents to the emergency department with worsening SOB with associated increased leg swelling and redness and pain of RLE per HPI. On arrival the patient is chronically ill appearing but in NAD, AFVSS. On exam viktoriya ent appears overloaded with diminished BS throughout. 3+ BLE edema with mild erythema, warmth and ttp of right lower leg. EKG demonstrates afib without overt acute ischemia. CXR stable for prior. WBC, H/H, platelets wnl. INR subtherapeutic at 1.6. Chemistry without acidosis. LFTs unremarkable. Magnesium 1.7 with repletion provided. BNP 1966 similar to prior admission. Patient reports that the pain and swelling in her leg has been so severe that she can barely walk at home and does not feel safe for discharge. Thus given the patient's fluid overload and erythema and warmth of 50% of her RLE, reasonable to admit the patient for diuresis and treatment of cellulitis. Duplex of RLE negative for DVT. Case was discussed with Dr. Addison, [facility] hospitalist, who will evaluate the patient for admission. Impression & Plan CHF (congestive heart failure), Cellulitis Discharge Plan Visit Data *Final* Discharge Date/Time: 04/25/19 00:29 Chief Complaint: Shortness of Breath/Dyspnea Stated Complaint: SOB, EDEMA TO LEGS ED Provider: Javy Quinteros Discharge Problem: CHF (congestive heart failure), Cellulitis Patient Disposition: Admitted As Inpatient Discharge Instructions Interventions: ED Discharge Assessment Last Done: 04/25/19 00:29 Discharge Problem: Cellulitis Qualifiers: Site of cellulitis: extremity Site of cellulitis of extremity: lower extremity Laterality: right Qualified Code(s): L03.115 - Cellulitis of right lower limb The scribe's documentation has been prepared under my direction and personally reviewed by me in its entirety. I confirm that the note above accurately reflects all work, treatment, procedures, and medical decision making performed by me.
[2019-04-24] MEDS ORDERED: METOPROLOL SUCC 50MG EXT REL TAB ONE (23:22)
[2019-04-24] MEDS: METOPROLOL SUCC 50MG EXT REL TAB PO SCH (23:34)
[2019-04-24] MEDS ORDERED: TRAMADOL HCL 50 MG TABLET PO STA (23:55)
[2019-04-25] MEDS ORDERED: WARFARIN SOD 5 MG TAB PO STA
[2019-04-25] MEDS ORDERED: CARBOHYDRATES FOR HYPOGLYCEMIA PO PRN (00:34)
[2019-04-25] MEDS ORDERED: GLUCAGON FOR INJ 1 MG VIAL SQ PRN (00:34)
[2019-04-25] MEDS ORDERED: MoRPHine SULFATE 4 MG/ML 1 ML CARP\\VIAL IV PRN (00:34)
[2019-04-25] MEDS ORDERED: DEXTROSE 50% 50 ML SYRINGE IV PRN (00:34)
[2019-04-25] MEDS ORDERED: TRAMADOL HCL 50 MG TABLET PO PRN (00:34)
[2019-04-25] MEDS ORDERED: GLUCOSE 10 TABS/TUBE PO PRN (00:34)
[2019-04-25] MEDS ORDERED: GLUCOSE 40% GEL 15 GM TUBE PO PRN (00:34)
[2019-04-25] MEDS ORDERED: INSULIN GLARGINE SOLOSTAR 100 UNITS/ML 3 ML PEN SQ STA (00:34)
[2019-04-25] MEDS ORDERED: POTASSIUM CHLORIDE 20 MEQ TABCR PO STA (00:34)
[2019-04-25] MEDS ORDERED: XOPENEX/ATROVENT 1.25mg/0.5MG NEB COMBO NEB STA (00:34)
[2019-04-25] MEDS ORDERED: PROMETHAZINE HCL 12.5 MG in SODIUM CHLORIDE 0.9% 50 ML IV PRN (00:34)
[2019-04-25] MEDS ORDERED: IPRATROPIUM BROMIDE NEB SOLN 0.02% 2.5 ML VIAL INH STA (00:47)
[2019-04-25] MEDS ORDERED: LEVALBUTEROL 1.25MG/0.5ML NEB INH STA (00:47)
[2019-04-25] MEDS: GABAPENTIN 100 MG CAP PO SCH ×2 (01:17→20:01)
[2019-04-25] MEDS: INSULIN ASPART 100 UNITS/ML 3 ML PEN SC SCH ×5 (01:19→21:12)
[2019-04-25 06:17] LABS: Basophils # (auto) 0.02 K/uL (0-0.2); Basophils % (auto) 0.3 %; Eosinophils # (auto) 0.08 K/uL (0-0.5); Eosinophils % (auto) 1.2 %; Hematocrit (blood only) 40.2 % (37-47); Hemoglobin 13.5 g/dL (12.0-16.0); Immature Granulocytes # (auto) 0.02 K/uL (0.00-0.02); Immature Granulocytes % (auto) 0.3 %; Lymphocytes # (auto) 1.66 K/uL (1.2-3.4); Lymphocytes % (auto) 23.9 %; Mean Corpuscular Hgb Conc 33.6 g/dL (32-36); Mean Corpuscular Volume 92.8 fL (80-100); Mean Platelet Volume 10.1 fL (7.4-10.4); Monocytes # (auto) 0.39 K/uL (0.11-0.59); Monocytes % (auto) 5.6 %; Neutrophils # (auto) 4.77 K/uL (1.4-6.5); Neutrophils % (auto) 68.7 %; Platelet Count 138 K/uL (130-400); RDW Coefficient of Variation 14.6 % (11.5-14.5); RDW Standard Deviation 49.4 fL (36.4-46.3); Red Blood Count 4.33 M/uL (4.2-5.4); White Blood Count 6.94 K/uL (4.8-10.8)
[2019-04-25 06:34] LABS: INR 1.5 (0.9-1.1)
[2019-04-25 06:52] LABS: BUN Creatinine Ratio 30.6 (10-20); Calcium 9.3 mg/dl (8.5-10.1); Creatinine Clr Calc Pharmacy 52.6 ml/min; Est GFR (African American) 64.2; Est GFR (Non-African American) 55.4; Potassium 3.5 mmol/L (3.5-5.1)
[2019-04-25] MEDS: INSULIN GLARGINE SOLOSTAR 100 UNITS/ML 3 ML PEN SQ SCH ×2 (07:44→21:13)
[2019-04-25] MEDS: ASPIRIN 81 MG ECTAB PO SCH (07:47)
[2019-04-25] MEDS: DOXYCYCLINE HYCLATE 100 MG CAP PO SCH ×2 (07:47→20:03)
[2019-04-25] MEDS: FUROSEMIDE 40 MG in SYRINGE 0 ML IV SCH ×2 (07:47→20:00)
[2019-04-25] MEDS: CYANOCOBALAMIN 500 MCG TABLET (VITAMIN B-12) PO SCH (07:47)
[2019-04-25] MEDS: SPIRONOLACTONE 25 MG TAB PO SCH (07:48)
[2019-04-25] MEDS: ALLOPURINOL 300 MG TAB PO SCH (07:49)
[2019-04-25] MEDS: POTASSIUM CHLORIDE 10 MEQ TABCR PO SCH ×2 (07:49→20:01)
[2019-04-25] MEDS: ATORVASTATIN 40 MG TAB PO SCH (07:49)
[2019-04-25] MEDS ORDERED: METOPROLOL SUCC 50MG EXT REL TAB PO STA (13:30)
--- NOTE | 2019-04-25 15:15 | Consultation Report ---
DATE OF CONSULTATION: 04/25/2019 CONSULTATION REQUESTED BY: Odalis Rdz PA-C. REASON FOR CONSULTATION: Lower extremity edema. HISTORY OF PRESENT ILLNESS: The patient is a very pleasant, yet medically complex, 68-year-old woman, who normally follows with myself as an outpatient. She presented to [facility] Emergency Department on 04/24/2019 on the advice of Winter's RN nurse triage for complaints of lower extremity pain. The patient notes that her breathing has been stable. Unfortunately, over the last 3-4 days, she notes that her legs have become rather edematous. They were nowhere near as big as they were prior to undergoing interventions with Dr. Holder, but her skin became very taut and was painful. She called the nurse triage line and was directed to go to the Emergency Department. Otherwise, she states that she has been doing well. She denies any chest pain, changes in her shortness of breath, palpitations, lightheadedness, dizziness or syncope. She was last seen in our Cardiology office at the end of February with Aurelia Hilario. At that point, she noted great clinical improvement. She underwent successful right greater saphenous vein and varices ablations with Dr. Holder on the 10th of this month and she has recovered well from that. PAST SURGICAL HISTORY: 1. Total abdominal hysterectomy. 2. Knee surgeries. 3. Colonoscopy. 4. Tonsillectomy. MEDICAL ILLNESSES: 1. Cor pulmonale. 2. Persistent atrial fibrillation, rate controlled on chronic Coumadin therapy. 3. Obesity. 4. Diabetes. 5. Severe COPD. 6. Tobacco abuse. 7. Chronic respiratory failure, on home O2. 8. Polymyalgia rheumatica. 9. Primary thrombocytopenia. 10. Lower extremity varices, status post ablation. FAMILY HISTORY: Noncontributory. SOCIAL HISTORY: The patient is a lifelong smoker and continues to smoke a few cigarettes a day. Drinks occasional alcohol. Denies any recreational drug use. She lives at home with her . REVIEW OF SYSTEMS: As per HPI, all other review of systems reviewed and negative at this time. ALLERGIES: PENICILLIN. MEDICATIONS AN OUTPATIENT: 1. Atorvastatin 80 mg daily. 2. Metoprolol tartrate 50 mg b.i.d. 3. Coumadin as directed by the [facility]. 4. Spironolactone 12.5 mg daily. 5. Torsemide 40 mg b.i.d. 6. Potassium chloride 10 mEq daily. 7. Zaroxolyn 2.5 mg p.o. p.r.n. 8. Aspirin 81 mg daily. 9. Oxygen 2 liters nasal cannula. 10. Insulin. 11. Neurontin. 12. Tramadol p.r.n. PHYSICAL EXAMINATION: VITAL SIGNS: Temperature 36.7, pulse 98, respiratory rate 14, blood pressure 127/95. GENERAL: Awake, alert, oriented x3. Mild conversational dyspnea, which is her baseline. HEENT: Normocephalic, atraumatic. Pupils equal, round, reactive to light and accommodation. Extraocular muscles intact. Anicteric sclerae. Moist mucous membranes. NECK: No JVD, no bruit. CARDIOVASCULAR: Irregularly irregular, unable to appreciate any murmurs, rubs or gallops. PULMONARY: Poor air movement bilaterally, but clear. No rales, rhonchi or wheezing. ABDOMEN: Bowel sounds x4, soft. No rebound, guarding, tenderness. No organomegaly. EXTREMITIES: +2 bilateral lower extremity pitting edema with taut skin, diffuse erythema and tenderness to palpation. +1 pedal pulses bilaterally. SKIN: Otherwise, warm and dry. IMPRESSION: 1. Acute worsening of her lower extremity edema, improving with diuresis. 2. Cor pulmonale. 3. Severe chronic obstructive pulmonary disease with continued tobacco abuse. 4. Chronic hypoxemia, on home O2. 5. Chronic atrial fibrillation, rate controlled on chronic Coumadin therapy. 6. Diastolic dysfunction with normal LV systolic function. RECOMMENDATIONS: It was my pleasure to see the patient in reevaluation today. From a cardiac standpoint, her legs do appear significantly taut and edematous. So at this point, I agree with continuing IV Lasix b.i.d. and following her clinically. She will be maintained on all of her other outpatient medical regimen and likely be discharged to home on her previous medical regimen with consideration being given to possibly changing her Neurontin to another medication given the fact that does cause lower extremity edema.
[2019-04-25] MEDS ORDERED: WARFARIN SOD 5 MG TAB PO SCH (16:00)
--- NOTE | 2019-04-25 17:31 | Hospitalist Progress Note ---
Date of Service April 25, 2019 Assessment & Plan (1) Acute exacerbation of CHF (congestive heart failure): Presented with volume overload,Dyspnea on exertion, orthopnea x 3 days, 8 lb weight gain - right-sided heart failure, Symptom improved with IV diuresis, cardiology consulted, appreciate input (2) Right-sided heart failure: This is a 68yo F with a PMH of R sided heart failure, cor pulmonale, DM II, HTN, chronic A Fib on anticoagulation, PVD with recent RFA of right greater saphenous vein by Dr. Holder on 04/06/19, venous ulcers, NUVIA on CPAP, tobacco use and other medical problems listed below who presents with dyspnea on exertion and BLE pain and was found to have acute decompensated CHF and BLE cellulitis. - -Chest x-ray without acute cardiopulmonary findings, stable cardiomegaly. Venous Doppler negative for DVT bilaterally -Work up: ECG with A fib at 105 bpm, BNP 1966, troponin negative -Echo from Jul 2018 with EF 55-59%, mild aortic valve sclerosis without stenosis, moderate mitral regurgitation, mild to moderate tricuspid regurgitation, right ventricular systolic pressure is elevated at 50-60 mmHg -Home regimen includes Torsemide 40mg BID, Spironolactone 12.5mg daily, Metolazone 2.5mg daily PRN as directed -continued Cont Lasix 40 mg IV BID as per cardiology (3) Cellulitis: erythema and tenderness on rt lower ext has chronic venous stasis changes on empiric abx with Doxycycline (4) Chronic venous insufficiency: H/o chronic venous stasis wounds that have healed. Discharged from wound care last month -Recent RFA of right greater saphenous vein by Dr. Holder on 04/06/19 -No leukocytosis (5) Chronic respiratory failure with hypoxia: Saturating at 99% on 2L NC O2 (baseline) (6) Chronic atrial fibrillation: -Continue Toprol -Anticoagulated with coumadin-continued (7) Hypomagnesemia: Replaced (8) Diabetes mellitus, type II: A1c of 9.1 in February 2019 -Basal bolus insulin while in-patient -BSG AC HS (9) HTN (hypertension): Home medications include Toprol, spironolactone continued diuresis with Lasix 40 mg IV BID (10) Dyslipidemia: Continue statin (11) NUVIA on CPAP: CPAP HS (12) Tobacco use disorder: nicontine patch FULL CODE DVT PROPHYLAXIS : on coumadin DISPOSITION : PT/OT eval prior to discharge Subjective Patient states that she feels much better since yesterday, improved lower extrem ity swelling, improved shortness of breath, orthopnea No cough, no chest pain, no fever or chills Physical Exam Constitutional: WD/WN, vitals as above + obese; no acute distress Eyes: PERRL, conjunctivae normal, anicteric sclerae ENMT: external ear and nose normal, oropharynx normal Neck: trachea midline, no thyromegaly Respiratory: Auscultation: + rales and + wheezes Cardiovascular: Extremities: + pedal edema and + edema +2 Gastrointestinal (Abdomen): normal bowel sounds, soft, nontender, no hepatosplenomegaly Musculoskeletal: no cyanosis or clubbing, extremities motor strength 5/5 Neurologic: PERRL, EOMI, accommodation nl, no face palsy, no dysarthria Psychiatric: A+Ox3, euthymic affect Results & Data Vital Signs (Past 12 Hours) Vital Signs Temp Pulse Pulse Resp BP BP Pulse Ox 04/25/19 15:08 36.4 C L 98 H 18 145/98 H 93 04/25/19 13:55 103 H 159/73 H 04/25/19 13:15 04/25/19 11:41 36.7 C 110 H 18 127/115 H 97 04/25/19 07:41 36.6 C 101 H 22 129/100 95 04/25/19 07:40 94 H 04/25/19 07:15 36.8 C 93 H 19 109/81 97 Pulse Ox Pulse Ox 04/25/19 15:08 04/25/19 13:55 04/25/19 13:15 95 93 04/25/19 11:41 04/25/19 07:41 04/25/19 07:40 04/25/19 07:15 (1) Diabetes mellitus, type II Diabetes mellitus complication detail: with chronic kidney disease Diabetes mellitus complication status: with kidney complications Diabetes mellitus intermodal customer service insulin use: unspecified intermodal customer service insulin use status (2) Cellulitis Laterality: right Site of cellulitis: extremity Site of cellulitis of extremity: lower extremity Qualified Code(s): L03.115 - Cellulitis of right lower limb (3) HTN (hypertension) Hypertension type: unspecified Qualified Code(s): I10 - Essential (primary) hypertension
[2019-04-25] MEDS: METOPROLOL SUCC 50MG EXT REL TAB PO SCH (20:02)
[2019-04-26] MEDS: INSULIN ASPART 100 UNITS/ML 3 ML PEN SC SCH (08:05)
[2019-04-26] MEDS: FUROSEMIDE 40 MG in SYRINGE 0 ML IV SCH (08:06)
[2019-04-26] MEDS: INSULIN GLARGINE SOLOSTAR 100 UNITS/ML 3 ML PEN SQ SCH (08:06)
[2019-04-26] MEDS: DOXYCYCLINE HYCLATE 100 MG CAP PO SCH (08:06)
[2019-04-26] MEDS: POTASSIUM CHLORIDE 10 MEQ TABCR PO SCH (08:07)
[2019-04-26] MEDS: SPIRONOLACTONE 25 MG TAB PO SCH (08:07)
[2019-04-26] MEDS: ATORVASTATIN 40 MG TAB PO SCH (08:08)
[2019-04-26] MEDS: METOPROLOL SUCC 50MG EXT REL TAB PO SCH (08:08)
[2019-04-26] MEDS: ASPIRIN 81 MG ECTAB PO SCH (08:08)
[2019-04-26] MEDS: ALLOPURINOL 300 MG TAB PO SCH (08:08)
[2019-04-26] MEDS: CYANOCOBALAMIN 500 MCG TABLET (VITAMIN B-12) PO SCH (08:08)
--- NOTE | 2019-04-26 09:06 | Cardiology Progress Note ---
Date of Service April 26, 2019 Assessment & Plan (1) Acute exacerbation of CHF (congestive heart failure): Symptoms improving with IV diuresis. Chronic edema noted, which patient reports at her baseline. BMP this AM for recheck Weight down since admission. Discharge on home dose diuretics including torsemide 40 mg BID, potassium 10 meq, spironolactone 12.5 mg daily. PRN use of metolazone Close f/u to be arranged with CHF clinic in 1 week. (2) Chronic respiratory failure with hypoxia: Chronic supplemental O2. Appears at baseline. (3) Chronic venous insufficiency: S/P recent intervention. Edema improved from admission. (4) Chronic atrial fibrillation: Rates borderline. continue metoprolol INR subtherapeutic. Will need close f/u on discharge with anticoagulation clinic Supervising Physician Co-Signing Physician Notes Attending toddler nanny: Patient seen and examined with Aurelia Hilario PA-C. Agree with findings and assessment as above. Mrs. Kumar is now pain free and has diuresed well. Will d/c IV lasix. Continue outpatient regimen. Will arrange for CHF clinic f/u as outpatient. Ok to d/c to home from cardiac standpoint. Subjective Patient reports feeling well this AM. Back at "baseline". SOB stable. Edema reportedly improved from admission. No LE pain. No orthopnea. No chest pain. No dizziness or palpitations. She is requesting to go home today Review of Systems Review of Systems: All systems reviewed & are unremarkable except as noted in HPI & below Physical Exam Constitutional: WD/WN, vitals as above + obese Respiratory: Auscultation: + diminished lung sounds (otherwise clear) Cardiovascular: Rate/Rhythm: + irregularly irregular Heart Sounds: + murmur (II/) Extremities: + edema (1+ b/l with chronic venous stasis) Gastrointestinal (Abdomen): normal bowel sounds, soft, nontender, no hepatosplenomegaly Results & Data Vital Signs (Past 12 Hours) Vital Signs Temp Pulse Pulse Resp BP BP Pulse Ox 04/26/19 06:58 36.9 C 97 H 22 111/79 96 04/26/19 03:56 36.4 C L 100 H 18 143/82 H 96 04/26/19 00:00 107 H 04/25/19 23:09 36.7 C 95 H 18 122/79 95 04/26/19 04/25/19 04/25/19 Range/Units 07:15 20:48 16:25 POC Glucose 169 H 254 H 270 H (70-99) 04/25/19 Range/Units 11:20 POC Glucose 226 H (70-99)
[2019-04-26 10:14] LABS: INR 2.3 (0.9-1.1); Prothrombin Time 21.8 Seconds (9.0-12.0)
--- NOTE | 2019-04-26 10:33 | Discharge Summary ---
Date of Service April 26, 2019 Admission HPI Per Admitting Provider This is a 68yo F with a PMH of R sided heart failure, cor pulmonale, DM II, HTN, chronic A Fib on anticoagulation, PVD with recent RFA of right greater saphenous vein by Dr. Holder on 04/06/19, venous ulcers, NUVIA on CPAP, tobacco use and other medical problems listed below who presents with dyspnea on exertion and BLE pain. Patient was admitted for acute on chronic CHF exacerbation in December 2018 and is followed by [facility] home as well. Has noted worsening dyspnea on exertion for the past 3 days and has required an extra pillow to prop herself up at night. Is on 2 L nasal cannula O2 chronically but feels herself becoming short of breath when speaking. Also notes lower extremity edema and pain with overlying redness and warmth over past few days. No fever or chills or open wounds. Recently underwent ablation of right greater saphenous vein by Dr. Holder a few weeks ago and that incision has healed without issue. Denies lightheadedness, headache, chest pain, palpitations, nausea, vomiting, abdominal pain, dysuria, diarrhea or constipation. Patient lives alone but niece helps manage medications. Has not yet taken the evening dose medications. In ED, patient found to be hypertensive and tachycardic around 105. Saturating at 99% on 2L NC O2 (baseline). BNP 1966. Chest x-ray without acute cardiopulmonary findings, stable cardiomegaly. Venous Doppler negative for DVT bilaterally. Has gained approximately 8 lbs since most recent weight in [facility] from late February. Principal Diagnosis Acute right heart failure and acute on chronic diastolic CHF Discharge Exam Constitutional WD/WN, vitals as above + obese; no acute distress Eyes PERRL, conjunctivae normal, anicteric sclerae ENMT external ear and nose normal, oropharynx normal Neck trachea midline, no thyromegaly Respiratory Auscultation: + rales and + wheezes Cardiovascular Extremities: + pedal edema and + edema Gastrointestinal (Abdomen) normal bowel sounds, soft, nontender, no hepatosplenomegaly Musculoskeletal no cyanosis or clubbing, extremities motor strength 5/5 Neurologic PERRL, EOMI, accommodation nl, no face palsy, no dysarthria Psychiatric A+Ox3, euthymic affect Discharge Data Allergies Allergy/AdvReac Type Severity Reaction Status Date / Time Penicillins Allergy Mild Verified 04/24/19 17:44 rofecoxib Allergy Unknown Verified 04/24/19 17:44 sulindac Allergy Unknown Verified 04/24/19 17:44 Consultations 04/24/19 21:05 ED Decision to Admit Stat 04/25/19 06:34 Consult Cardiology Routine Ordered Studies 04/24/19 21:05 US venous doppler LE RT Stat Hospital Course (1) Acute on chronic diastolic CHF (congestive heart failure): Presented with volume overload,Dyspnea on exertion, orthopnea x 3 days, 8 lb weight gain - right-sided heart failure, Symptom improved with IV diuresis, cardiology consulted, appreciate input Patient's volume status back to baseline Stable to be discharged home today, Resumed home diuretics regimen: Torsemide 40 mg p.o. twice daily, potassium 10 M EQ p.o. daily Aldactone 12.5 mg p.o. daily, as needed metolazone Outpatient close follow-up with cardiology at CHF clinic (2) Acute exacerbation of CHF (congestive heart failure): Management as outlined above (3) Right-sided heart failure: This is a 68yo F with a PMH of R sided heart failure, cor pulmonale, DM II, HTN, chronic A Fib on anticoagulation, PVD with recent RFA of right greater saphenous vein by Dr. Holder on 04/06/19, venous ulcers, NUVIA on CPAP, tobacco use and other medical problems listed below who presents with dyspnea on exertion and BLE pain and was found to have acute decompensated CHF and BLE cellulitis. - -Chest x-ray without acute cardiopulmonary findings, stable cardiomegaly. Venous Doppler negative for DVT bilaterally -Work up:, BNP 1966, troponin negative -Echo from Jul 2018 with EF 55-59%, mild aortic valve sclerosis without stenosis, moderate mitral regurgitation, mild to moderate tricuspid regurgitation, right ventricular systolic pressure is elevated at 50-60 mmHg Adequate diuresis with IV Lasix Volume status to approximate baseline Able to be discharged home as per cardiology -Home regimen includes Torsemide 40mg BID, Spironolactone 12.5mg daily, Metolazone 2.5mg daily PRN as directed -continued (4) Cellulitis: erythema and tenderness on rt lower ext has chronic venous stasis changes on empiric abx with Doxycycline complete total 7-day course (5) Chronic venous insufficiency: H/o chronic venous stasis wounds that have healed. Discharged from wound care last month -Recent RFA of right greater saphenous vein by Dr. Holder on 04/06/19 (6) Chronic respiratory failure with hypoxia: Saturating at 99% on 2L NC O2 (baseline) (7) Chronic atrial fibrillation: -Continue Toprol -Anticoagulated with coumadin-INR therapeutic 2.3 today (8) Hypomagnesemia: Replaced (9) Diabetes mellitus, type II: A1c of 9.1 in February 2019 Resumed out patient insulin regimen on discharge -BSG AC HS (10) HTN (hypertension): Home medications include Toprol, spironolactone /torsemide continued BP remains stable (11) Dyslipidemia: Continue statin (12) NUVIA on CPAP: CPAP HS CODE STATUS: Full code DVT prophylaxis: On Coumadin INR therapeutic Disposition: Stable to be discharged home today, referral made to home health visiting nurse Hospital [facility] scheduled [facility] on next Tuesday, April 30, 2019 (13) Tobacco use disorder: nicontine patch FULL CODE DVT PROPHYLAXIS : on coumadin DISPOSITION : PT/OT eval prior to discharge Total Time Total Time Spent Total Time Spent (In Minutes): 40 minutes Total Time Includes: Examination of the Patient, Discharge Planning and Medication Reconciliation Discharge Plan Discharge Items Patient Disposition: Home - Home Health Services Reason For Visit: CHF Discharge Diagnosis: ACUTE RIGHT HEART FAILURE /ACUTE ON CHRONIC DIASTOLIC HEART FAILURE Discharge Goals: Decrease discomfort Activity: As commented below Activity Comment: continue physical therapy at home Non-emergency contact: Primary Care Provider Call non-emergency contact if: you have any medication questions Follow-up/Referrals: Edison Mathis MD [Primary Care Provider] - 04/30/19 12:45 pm (HOSPITAL FOLLOW UP WITH DR DELGADILLO ON Tuesday04/30/2019 @12: 45 PM ) Diet: Heart Healthy Addtl Provider Instructions: YOU WILL BENEFIT WITH HOME HEALTH NURSING AND HOME PHYSICAL AND OCCUPATIONAL THERAPY HOSPITAL FOLLOW UP WITH DR DELGADILLO ON Tuesday04/30/2019 @12: 45 PM CARDIOLOGY FOLLOW UP AT [facility] IN 1-2 WEEKS FOLLOW UP AT THE COAGULATION /COUMADIN CLINIC IN NEXT 1-2 DAYS Call your Primary Care doctor if any of the following symptoms or problems start or get worse: * Shortness of breath or difficulty breathing * Wake up at night short of breath * Chest pain * Cough * Swelling of your hands, feet, or legs * More fatigued or tired with your normal activity * Palpitations - sudden fast heart beats WEIGHT * Weigh yourself every morning after using the bathroom. * Use the same scale. * Wear the same amount of clothing. * Write your weight down on a chart. * Call your Primary Care doctor if you gain more than 2-3 pounds in 1-2 days. MEDICATIONS * Use this discharge instruction sheet for medication instructions. * Take your medications at the time your doctor ordered. * Do not skip a dose of your medicines. * If you miss a dose of medicine, take it as soon as possible, but DO NOT DOUBLE A DOSE. * Read your medicine information when you get home. * Know all of the side effects of your medicine. If in doubt, ask your pharmacist * Call your Primary Care doctor's office if you have any side effects. * Be sure all of your doctors know what medicine and herbs you take (including cold, flu, and herbal medicine). Take the following with you to your follow-up doctor appointments: * Weight Chart * Medication List * List of questions Do not drink excessive alcohol, beer or wine. Prescriptions: New doxycycline hyclate 100 mg Capsule 100 mg PO BID 5 Days Qty: 10 RF: 0 Continued metolazone 2.5 mg tablet 2.5 mg PO DAILY PRN (Reason: Edema) RF: 0 metoprolol succinate 50 mg tablet extended release 24 hr 50 mg PO BID RF: 0 atorvastatin 40 mg Tablet 2 tab PO QAM RF: 0 cyanocobalamin (vitamin B-12) [Vitamin B-12] 1,000 mcg Tablet 1,000 mcg PO QAM RF: 0 aspirin 81 mg Tablet,Delayed Release (Dr/Ec) 81 mg PO QAM RF: 0 tramadol 50 mg Tablet 50 mg PO Q6H PRN (Reason: Pain) RF: 0 nitroglycerin [Nitrostat] 0.4 mg Tablet, Sublingual 1 tab Sublingual DIRECTED PRN (Reason: Chest Pain) RF: 0 allopurinol 300 mg Tablet 300 mg PO QAM RF: 0 gabapentin 100 mg Capsule 300 mg PO HS RF: 0 cholecalciferol (vitamin D3) [Vitamin D3] 1,000 unit Capsule 2,000 unit PO QAM RF: 0 Lantus Solostar U-100 Insulin 100 unit/mL (3 mL) Insulin Pen 40 unit SUBCUT QAM RF: 0 warfarin [Coumadin] 3 mg Tablet 4.5 mg PO SUTUTH@2100 RF: 0 potassium chloride 10 mEq tablet extended release 10 meq PO QAM RF: 0 acetaminophen [Tylenol Extra Strength] 500 mg Tablet 1,000 mg PO UD RF: 0 spironolactone 25 mg tablet 12.5 mg PO DAILY RF: 0 torsemide 20 mg tablet 40 mg PO BID RF: 0 warfarin 3 mg tablet 3 mg PO [id number]@2100 RF: 0 Stand-Alone Forms: [facility] Discharge Orders: Discharge Order (Routine); Ordered 04/26/19 Ordered By: Jocelin Feldman Admission Data Admit Date/Time: 04/24/19 23:46 Attending Provider: Jocelin Feldman Admit Provider: Jaylon Addison Primary Care Provider: Edison Mathis Other Providers: Jaylon Addison ; Johnathon Jackson Service: Telemetry Other DC Date/Time DO NOT enter until pt leaves facility: 04/26/19 10:20
[2019-04-26 10:34] LABS: BUN Creatinine Ratio 31.6 (10-20); Calcium 9.7 mg/dl (8.5-10.1); Creatinine Clr Calc Pharmacy 48.1 ml/min; Est GFR (African American) 56.8; Potassium 4.6 mmol/L (3.5-5.1)
== END 2019-04-26 10:20 | disposition home health service (06) | DRG 292 ==
LOC: ED 17:29 → 2E 23:46

== ENCOUNTER 2019-05-21 22:01 | Inpatient (IN) ==
--- NOTE | 2019-05-21 22:38 | XRay Report ---
XR chest 1V portable CLINICAL HISTORY: sob dyspnea COMPARISON STUDY: 04/24/2019 FINDINGS: Mild stable cardiomegaly. Prominent pulmonary vasculature. Diaphragms smooth. IMPRESSION: Pulmonary vascular congestion. Mild cardiomegaly. The above report was generated using voice recognition software. It may contain grammatical, syntax or spelling errors. Electronically signed by: Vinny Fernando M.D. 05/21/2019 10:37 PM
[2019-05-21 22:45] LABS: Basophils # (auto) 0.03 K/uL (0-0.2); Basophils % (auto) 0.3 %; Eosinophils # (auto) 0.07 K/uL (0-0.5); Eosinophils % (auto) 0.7 %; Hematocrit (blood only) 44.8 % (37-47); Hemoglobin 15.8 g/dL (12.0-16.0); Immature Granulocytes # (auto) 0.03 K/uL (0.00-0.02); Immature Granulocytes % (auto) 0.3 %; Lymphocytes # (auto) 1.81 K/uL (1.2-3.4); Lymphocytes % (auto) 17.7 %; Mean Corpuscular Hgb Conc 35.3 g/dL (32-36); Mean Corpuscular Volume 90.3 fL (80-100); Mean Platelet Volume 11.2 fL (7.4-10.4); Monocytes # (auto) 0.53 K/uL (0.11-0.59); Monocytes % (auto) 5.2 %; Neutrophils # (auto) 7.77 K/uL (1.4-6.5); Neutrophils % (auto) 75.8 %; Platelet Count 150 K/uL (130-400); RDW Coefficient of Variation 14.8 % (11.5-14.5); RDW Standard Deviation 47.6 fL (36.4-46.3); Red Blood Count 4.96 M/uL (4.2-5.4); White Blood Count 10.24 K/uL (4.8-10.8)
[2019-05-21 22:46] LABS: Appearance Urine Clear (Clear); Bilirubin Urine Negative (Negative); Blood Urine Negative (Negative); Color Urine Yellow; Glucose Urine UA 2+ (Negative); Ketones Urine Negative (Negative); Leukocyte Esterase Urine Negative (Negative); Nitrite Urine Negative (Negative); Protein Urine Negative (Negative); Specific Gravity Urine 1.015 (1.000-1.030); Urobilinogen Urine Negative (Negative)
[2019-05-21 22:56] LABS: INR 2.3 (0.9-1.1); Partial Thromboplastin Ratio 1.2; Partial Thromboplastin Time 33.3 Seconds (21.0-31.0); Prothrombin Time 22.1 Seconds (9.0-12.0)
[2019-05-21 23:08] LABS: Base Excess VBG 10.8 mEq/L; HCO3 VBG 37 mmol/L; Oxygen Saturation VBG < 60.0 %; PCO2 VBG 54 mmHg (38-50); PO2 VBG 29 mmHg; pH VBG 7.45 (7.36-7.41)
--- NOTE | 2019-05-21 23:18 | Emergency Department Note ---
History of Present Illness General Chief complaint: Hyperglycemia Stated complaint: LEG PAIN, HYPERGLYCEMIA, SOB History of Present Illness This 68-year-old presents to the ER complaining of hyperglycemia and dyspnea Location: Generalized Quality: Fatigue Severity: Moderate Duration: Past few days Timing: Started a few days ago Context: Patient was concerned about her blood sugar and came in Modifying factors: better with nothing; worse with activity Patient chronically wears 2 L of O2. She has a history of CHF and COPD. Patient complains of some abdominal discomfort. She was just discharged from this facility a few weeks ago for CHF exacerbation. Patient denies chest pain, weight gain, increasing leg swelling, fevers, cough, congestion. Home Medications Home Medications Medication Instructions Recorded Confirmed Type Lantus Solostar U-100 Insulin 42 unit SUBCUT QAM 08/11/18 05/21/19 History allopurinol 300 mg PO QAM 08/11/18 05/21/19 History aspirin 81 mg PO QAM 08/11/18 05/21/19 History atorvastatin 2 tab PO QAM 08/11/18 05/21/19 History cholecalciferol (vitamin D3) 2,000 unit PO QAM 08/11/18 05/21/19 History [Vitamin D3] cyanocobalamin (vitamin B-12) 1,000 mcg PO QAM 08/11/18 05/21/19 History [Vitamin B-12] gabapentin 300 mg PO HS 08/11/18 05/21/19 History nitroglycerin [Nitrostat] 1 tab SUBLINGUAL DIRECTED PRN 08/11/18 05/21/19 History tramadol 50 mg PO Q6H PRN 08/11/18 05/21/19 History warfarin [Coumadin] 4.5 mg PO SUTUTH@2100 08/11/18 05/21/19 History metolazone 2.5 mg tablet 2.5 mg PO DAILY PRN 01/01/19 05/21/19 History metoprolol succinate ER 50 mg 50 mg PO BID 01/01/19 05/21/19 History tablet,extended release 24 hr acetaminophen [Tylenol Extra 1,000 mg PO UD 01/08/19 05/21/19 History Strength] potassium chloride 10 meq PO DAILY 01/08/19 05/21/19 History spironolactone 12.5 mg PO DAILY 01/08/19 05/21/19 History torsemide 40 mg PO BID 05/28/19 06/24/19 History warfarin 3 mg PO MOWEFRSA@2100 04/24/19 05/21/19 History Allergies Allergy/AdvReac Type Severity Reaction Status Date / Time Penicillins Allergy Mild Unknown Verified 05/21/19 22:57 rofecoxib Allergy Unknown Unknown Verified 05/21/19 22:57 sulindac Allergy Unknown Unknown Verified 05/21/19 22:57 Past Med/Surg History Medical History Tobacco use disorder (Chronic) NUVIA on CPAP (Chronic) Chronic respiratory failure with hypoxia (Chronic) Pickwickian syndrome (Chronic) Chronic atrial fibrillation (Chronic) Lumbar radiculopathy (Chronic) Anemia (Chronic 11/27/13) Hypomagnesemia (Chronic) Hypocalcemia (Chronic) Diabetes mellitus, type II (Chronic) Dyslipidemia (Chronic) HTN (hypertension) (Chronic) Polymyalgia rheumatica (Chronic) Right-sided heart failure (Chronic) Surgical History History of hysterectomy (Resolved) History of total knee replacement (Resolved) Family History Father Heart disease Stroke Mother Diabetes Social History Preferred Language: Ivorian Communication Ability: Effective Beliefs That Will Affect Care: None Current Living Situation: Alone Feels Safe at Home: Yes Smoking Status: Current every day smoker Tobacco Type: cigarettes Cigarettes Per Day: less then 10 Second Hand Exposure: No Hx Alcohol Use: No Hx Substance Use: No Review of Systems All systems reviewed & are unremarkable except as noted in HPI & below Physical Exam Vital Signs Vital Signs - 24 hr 05/21/19 22:10 05/21/19 22:16 05/21/19 22:33 Temperature 36.9 C Temperature Source Oral Sepsis Recent Fever Within 48 Hours No Sepsis New/Unexplained Change in Mental Status No Sepsis Action Taken by Nursing No Action Required Pulse Rate 115 H 115 H Pulse Rate [Bilateral] 116 H Pulse Rhythm Irregular Irregular Pulse Rhythm [Bilateral] Regular Pulse Strength Normal Pulse Strength [Bilateral] Normal Respiratory Rate 31 H 31 H 21 Respiratory Effort / Characteristics Non-Labored Non-Labored Spontaneous Respiratory Depth Shallow Normal Respiratory Pattern Regular Blood Pressure 143/114 H Blood Pressure [Right Arm] 120/87 Blood Pressure Mean 123 Blood Pressure Mean [Right Arm] 98 Blood Pressure Position Sitting Blood Pressure Position [Right Arm] Sitting Pulse Oximetry 94 94 96 Oxygen Delivery Method Nasal Cannula Nasal Cannula Nasal Cannula Oxygen Flow Rate 2 2 2 05/22/ 00:10 Temperature Temperature Source Sepsis Recent Fever Within 48 Hours Sepsis New/Unexplained Change in Mental Status Sepsis Action Taken by Nursing Pulse Rate Pulse Rate [Bilateral] 109 H Pulse Rhythm Pulse Rhythm [Bilateral] Irregular Pulse Strength Pulse Strength [Bilateral] Normal Respiratory Rate 24 Respiratory Effort / Characteristics Respiratory Depth Respiratory Pattern Blood Pressure Blood Pressure [Right Arm] 145/109 H Blood Pressure Mean Blood Pressure Mean [Right Arm] 121 Blood Pressure Position Blood Pressure Position [Right Arm] Sitting Pulse Oximetry 97 Oxygen Delivery Method Nasal Cannula Oxygen Flow Rate 2 VITALS: Vitals are noted on the nurse's note and reviewed by myself. Vital signs stable. GENERAL: Pleasant female, in no acute distress, nondiaphoretic, well-developed well-nourished. SKIN: The skin was without rashes, erythema, edema, or bruising. There is no tenting of the skin. Capillary reflex less than 2 seconds. HEAD: Normocephalic atraumatic. EARS: External auditory canals clear, tympanic membranes pearly singh without erythema or effusion bilaterally. EYES: Pupils equal round and reactive to light and accommodation. Conjunctivae without injection, sclerae without icterus. Extraocular movements intact. NOSE: Patent, turbinates without inflammation or discharge. MOUTH: Mucous membranes moist. Pharynx without erythema or exudate. Uvula midline. Airway patent. Tongue does not deviate. NECK: Supple without nuchal rigidity. No lymphadenopathy. No thyromegaly. Cervical spine is nontender. No JVD. HEART: Irregularly irregular LUNGS: Clear to auscultation bilaterally without wheezes, rales or rhonchi. No retractions or accessory muscle use. ABDOMEN: Positive bowel sounds x 4. Normal tympanic percussion. Soft, tender to palpation mid abdomen, protuberant, obese, without masses or organomegaly. Hays sign negative. No guarding or rebound tenderness. No CVA tenderness MUSCULOSKELETAL: No muscle atrophy, noted. Trace edema up to the mid tib-fib bilaterally. Unchanged per patient. NEURO: Patient was alert and oriented to person place and time. Normal sensation to light and sharp touch. No focal neurological deficits. Course Administered Medications Discontinued Medications Sodium Chloride (Nss 1000ml) 500 mls @ 999 mls/hr IV .Q31M ONE Stop: 05/22/19 00:07 Last Infusion: 05/22/19 00:46 Dose: 0 mls/hr Documented by: [id number] Admin: 05/22/19 00:07 Dose: 999 mls/hr Documented by: [id number] Potassium Chloride (Klor-Con M10) 40 meq PO NOW STA Stop: 05/21/19 23:38 Last Admin: 05/22/19 00:07 Dose: 40 meq Documented by: [id number] Medical Decision Making Medical Records Attestation: I reviewed the patient's medical records. Home Medications Current Medication List: was personally reviewed by me Laboratory Data Attestation: I reviewed the patient's lab results. Result diagrams: 05/21/19 22:24 05/21/19 22:24 Lab Results 05/21/19 05/21/19 05/21/19 Range/Units 22:14 22:18 22:24 WBC 10.24 (4.8-10.8) K/uL RBC 4.96 (4.2-5.4) M/uL Hgb 15.8 (12.0-16.0) g/dL Hct 44.8 (37-47) % MCV 90.3 (80-100) fL MCH 31.9 (25-34) pg MCHC 35.3 (32-36) g/dL RDW Std Deviation 47.6 H (36.4-46.3) fL RDW Coeff of Patrick 14.8 H (11.5-14.5) % Plt Count 150 (130-400) K/uL MPV 11.2 H (7.4-10.4) fL Immature Gran % (Auto) 0.3 % Neut % (Auto) 75.8 % Lymph % (Auto) 17.7 % [place] % (Auto) 5.2 % Eos % (Auto) 0.7 % Baso % (Auto) 0.3 % Immature Gran # (Auto) 0.03 H (0.00-0.02) K/uL Neut # (Auto) 7.77 H (1.4-6.5) K/uL Lymph # (Auto) 1.81 (1.2-3.4) K/uL [place] # (Auto) 0.53 (0.11-0.59) K/uL Eos # (Auto) 0.07 (0-0.5) K/uL Baso # (Auto) 0.03 (0-0.2) K/uL PT (9.0-12.0) Seconds INR (0.9-1.1) APTT (21.0-31.0) Seconds PTT Ratio VBG pH (7.36-7.41) VBG pCO2 (38-50) mmHg VBG pO2 mmHg VBG HCO3 mmol/L VBG O2 Saturation % VBG Base Excess mEq/L Barometric Pressure mm/Hg Sodium (136-145) mmol/L Potassium (3.5-5.1) mmol/L Chloride (98-107) mmol/L Carbon Dioxide (21-32) mmol/L Anion Gap (3-11) BUN (7-18) mg/dl Creatinine (0.6-1.2) mg/dl Est Cr Clr Drug Dosing ml/min Est GFR ( Amer) Est GFR (Non-Af Amer) BUN/Creatinine Ratio (10-20) Glucose (70-99) mg/dl POC Glucose 502 H* (70-99) Calcium (8.5-10.1) mg/dl Magnesium (1.8-2.4) mg/dl Total Bilirubin (0.2-1) mg/dl AST (15-37) U/L ALT (12-78) U/L Alkaline Phosphatase (45-117) U/L Troponin I (0-0.045) ng/ml Total Protein (6.4-8.2) gm/dl Albumin (3.4-5.0) gm/dl Globulin (2.5-4.0) gm/dl Albumin/Globulin Ratio (0.9-2) Lipase (73-393) U/L Beta-Hydroxybutyric Acd (0.2-2.81) mg/dl Urine Color Yellow Urine Appearance Clear (Clear) Urine pH 5.0 (4.5-7.5) Ur Specific [place] 1.015 (1.000-1.030) Urine Protein Negative (Negative) Urine Glucose (UA) 2+ H (Negative) Urine Ketones Negative (Negative) Urine Blood Negative (Negative) Urine Nitrite Negative (Negative) Urine Bilirubin Negative (Negative) Urine Urobilinogen Negative (Negative) Ur Leukocyte Esterase Negative (Negative) 05/21/19 05/21/19 05/21/19 Range/Units 22:24 22:24 22:59 WBC (4.8-10.8) K/uL RBC (4.2-5.4) M/uL Hgb (12.0-16.0) g/dL Hct (37-47) % MCV (80-100) fL MCH (25-34) pg MCHC (32-36) g/dL RDW Std Deviation (36.4-46.3) fL RDW Coeff of Patrick (11.5-14.5) % Plt Count (130-400) K/uL MPV (7.4-10.4) fL Immature Gran % (Auto) % Neut % (Auto) % Lymph % (Auto) % [place] % (Auto) % Eos % (Auto) % Baso % (Auto) % Immature Gran # (Auto) (0.00-0.02) K/uL Neut # (Auto) (1.4-6.5) K/uL Lymph # (Auto) (1.2-3.4) K/uL [place] # (Auto) (0.11-0.59) K/uL Eos # (Auto) (0-0.5) K/uL Baso # (Auto) (0-0.2) K/uL PT 22.1 H (9.0-12.0) Seconds INR 2.3 H (0.9-1.1) APTT 33.3 H (21.0-31.0) Seconds PTT Ratio 1.2 VBG pH 7.45 H (7.36-7.41) VBG pCO2 54 H (38-50) mmHg VBG pO2 29 mmHg VBG HCO3 37 mmol/L VBG O2 Saturation < 60.0 % VBG Base Excess 10.8 mEq/L Barometric Pressure 726.7 mm/Hg Sodium 130 L (136-145) mmol/L Potassium 2.9 L (3.5-5.1) mmol/L Chloride 84 L (98-107) mmol/L Carbon Dioxide 36 H (21-32) mmol/L Anion Gap 10.0 (3-11) BUN 83 H (7-18) mg/dl Creatinine 2.55 H (0.6-1.2) mg/dl Est Cr Clr Drug Dosing 23.2 ml/min Est GFR ( Amer) 21.5 Est GFR (Non-Af Amer) 18.5 BUN/Creatinine Ratio 32.6 H (10-20) Glucose 434 H* (70-99) mg/dl POC Glucose (70-99) Calcium 9.7 (8.5-10.1) mg/dl Magnesium 2.4 (1.8-2.4) mg/dl Total Bilirubin 0.5 (0.2-1) mg/dl AST 15 (15-37) U/L ALT 29 (12-78) U/L Alkaline Phosphatase 128 H (45-117) U/L Troponin I 0.021 (0-0.045) ng/ml Total Protein 7.5 (6.4-8.2) gm/dl Albumin 3.5 (3.4-5.0) gm/dl Globulin 4.0 (2.5-4.0) gm/dl Albumin/Globulin Ratio 0.9 (0.9-2) Lipase 309 (73-393) U/L Beta-Hydroxybutyric Acd 1.09 (0.2-2.81) mg/dl Urine Color Urine Appearance (Clear) Urine pH (4.5-7.5) Ur Specific [place] (1.000-1.030) Urine Protein (Negative) Urine Glucose (UA) (Negative) Urine Ketones (Negative) Urine Blood (Negative) Urine Nitrite (Negative) Urine Bilirubin (Negative) Urine Urobilinogen (Negative) Ur Leukocyte Esterase (Negative) Imaging Data Attestation: I personally reviewed and interpreted this imaging study as follows: MDM Narrative Prior records/ancillary studies reviewed and summarized above. Nursing notes reviewed. Additional history obtained from EMS. The patient's history was concerning for hyperglycemia and dyspnea. Differential diagnosis: Etiologies such as metabolic, infection, hypo/hyperglycemia, electrolyte abnormalities, cardiac sources, intracerebral event, toxicologic, neurologic, as well as others were entertained. Physical examination: As above. ER treatment provided: IV Lock IV fluids, potassium, insulin On reassessment the patient felt better. Diagnostics interpretation by me: ECG: Irregularly irregular with no acute ST-T wave changes, rate of 112. Impression A. fib with RVR interpreted by myself The labs revealed negative troponin Hyperglycemia without DKA Negative urine No leukocytosis Therapeutic INR Acute kidney injury Imaging studies: XR chest 1V portable CLINICAL HISTORY: sob dyspnea COMPARISON STUDY: 04/24/2019 FINDINGS: Mild stable cardiomegaly. Prominent pulmonary vasculature. Diaphragms smooth. IMPRESSION: Pulmonary vascular congestion. Mild cardiomegaly. The above report was generated using voice recognition software. It may contain grammatical, syntax or spelling errors. Electronically signed by: Vinny Fernando M.D. 05/21/2019 10:37 PM Preliminary Findings Only See Final Report For Complete Findings CT ABDOMEN & PELVIS Without Contrast: Staghorn type of small calculus involving the left lower renal pole. No hydronephrosis. No other evidence for obstructive uropathy. No appendicitis, colitis, diverticulitis or bowel obstruction. No free air or free fluid. Cardiomegaly without significant amount of pericardial effusion. Multivessel coronary Spaces. Radiologist: Basil Montoya M.D. Consultation: A consultation was placed with the hospitalist, Dr Addison. The case was discussed and diagnostics were reviewed. The patient was evaluated in the ER for further treatment. Exam and history seem consistent with acute kidney injury with hyperglycemia with hypokalemia. Patient was gently hydrated as above. Potassium was replaced. Medicine was consulted. Patient agrees to treatment plan of admission. By the evaluation outlined above emergent etiologies such as infection, cardiac sources, intracerebral event, toxologic, neurologic, as well as others were deemed relatively unlikely. The pt informed about the findings as listed above. All questions were answered and pleased with the treatment. Case reviewed with my attending The chart was completed utilizing [employer] voice recognition software. Grammatical errors, random word insertions, pronoun errors, and incomplete sentences are an occassional consequence of this system due to software limitations, ambient noise, and hardware issues. Any formal questions or concerns about the content, text, or information contained within the body of this dictation should be directly addressed to the physician delinquent tax collector assistant for clarification. Impression & Plan HALI (acute kidney injury), Acute hyperglycemia, Hypokalemia Discharge Plan Visit Data Chief Complaint: Hyperglycemia Stated Complaint: LEG PAIN, HYPERGLYCEMIA, SOB ED Provider: Santana Santana ED Midlevel Provider: Yesenia Varghese Discharge Problem: HALI (acute kidney injury), Acute hyperglycemia, Hypokalemia Patient Disposition: Admitted As Inpatient Condition: Fair Forms Stand Alone Forms: My [facility] Layer[employer] TV Prescriptions Prescriptions: No Action metolazone 2.5 mg tablet 2.5 mg PO DAILY PRN (Reason: Edema) RF: 0 metoprolol succinate 50 mg tablet extended release 24 hr 50 mg PO BID RF: 0 atorvastatin 40 mg Tablet 2 tab PO QAM RF: 0 cyanocobalamin (vitamin B-12) [Vitamin B-12] 1,000 mcg Tablet 1,000 mcg PO QAM RF: 0 aspirin 81 mg Tablet,Delayed Release (Dr/Ec) 81 mg PO QAM RF: 0 tramadol 50 mg Tablet 50 mg PO Q6H PRN (Reason: Pain) RF: 0 nitroglycerin [Nitrostat] 0.4 mg Tablet, Sublingual 1 tab Sublingual DIRECTED PRN (Reason: Chest Pain) RF: 0 allopurinol 300 mg Tablet 300 mg PO QAM RF: 0 gabapentin 100 mg Capsule 300 mg PO HS RF: 0 cholecalciferol (vitamin D3) [Vitamin D3] 1,000 unit Capsule 2,000 unit PO QAM RF: 0 Lantus Solostar U-100 Insulin 100 unit/mL (3 mL) Insulin Pen 42 unit SUBCUT QAM RF: 0 warfarin [Coumadin] 3 mg Tablet 4.5 mg PO SUTUTH@2100 RF: 0 potassium chloride 10 mEq tablet extended release 10 meq PO DAILY RF: 0 acetaminophen [Tylenol Extra Strength] 500 mg Tablet 1,000 mg PO UD RF: 0 spironolactone 25 mg tablet 12.5 mg PO DAILY RF: 0 torsemide 20 mg tablet 40 mg PO BID RF: 0 warfarin 3 mg tablet 3 mg PO MOWEFRSA@2100 RF: 0 Referrals Referrals: Edison Mathis MD [Primary Care Provider] -
[2019-05-21 23:33] LABS: Albumin Globulin Ratio 0.9 (0.9-2); Albumin Level 3.5 gm/dl (3.4-5.0); BUN Creatinine Ratio 32.6 (10-20); Bilirubin,Total 0.5 mg/dl (0.2-1); Calcium 9.7 mg/dl (8.5-10.1); Creatinine Clr Calc Pharmacy 23.2 ml/min; Est GFR (African American) 21.5; Est GFR (Non-African American) 18.5; Magnesium 2.4 mg/dl (1.8-2.4); Potassium 2.9 mmol/L (3.5-5.1); Total Protein 7.5 gm/dl (6.4-8.2); Troponin I 0.021 ng/ml (0-0.045)
[2019-05-21] MEDS ORDERED: SODIUM CHLORIDE 0.9% 1000ML 500 ML IV ONE (23:37)
[2019-05-21] MEDS ORDERED: POTASSIUM CHLORIDE 10 MEQ TABCR PO STA (23:37)
[2019-05-21 23:47] LABS: Beta-Hydroxybutyrate 1.09 mg/dl (0.2-2.81)
--- NOTE | 2019-05-22 00:14 | Emergency Department Note ---
ED Visit Note This Patient was discussed with the physician engineering inspection assistant, Yesenia Varghese PA-C. The pertinent historical and physical exam findings were confirmed. I agree with the studies ordered and with the interpretations of these studies. I agree with the disposition and care plan. .
[2019-05-22] MEDS ORDERED: POTASSIUM CHLORIDE 20 MEQ TABCR PO STA ×3 (01:19→20:54)
[2019-05-22] MEDS ORDERED: ALBUMIN 25% 50 ML IV ONE (01:20)
[2019-05-22] MEDS ORDERED: NovoLIN-R INSULIN PER UNIT CHARGE IV STA (01:20)
[2019-05-22] MEDS ORDERED: INSULIN GLARGINE SOLOSTAR 100 UNITS/ML 3 ML PEN SQ STA ×3 (01:23→21:02)
[2019-05-22] MEDS ORDERED: TRAMADOL HCL 50 MG TABLET PO PRN (01:28)
[2019-05-22] MEDS ORDERED: METOPROLOL SUCC 50MG EXT REL TAB PO SCH (01:30)
[2019-05-22 02:39] LABS: Albumin Globulin Ratio 0.9 (0.9-2); Albumin Level 3.3 gm/dl (3.4-5.0); Bilirubin,Total 0.5 mg/dl (0.2-1); Calcium 8.8 mg/dl (8.5-10.1); Creatinine Clr Calc Pharmacy 26.4 ml/min; Est GFR (African American) 25.1; Est GFR (Non-African American) 21.7; Globulin 3.6 gm/dl (2.5-4.0); Potassium 2.7 mmol/L (3.5-5.1); Total Protein 6.9 gm/dl (6.4-8.2)
--- NOTE | 2019-05-22 02:49 | History & Physical Report ---
Date of Service May 22, 2019 Assessment & Plan (1) COPD exacerbation: Complicated bronchitis hx chronic respiratory failure secondary to cor pulmonale, COPD on home O2, hx NUVIA No sepsis hx chronic diastolic heart failure EF 55 to 60%, TTE 07/2018, equivocal volume status to dry Hypertension, slightly elevated AFib on Coumadin, rate slightly uncontrolled, INR therapeutic ARF, hypokalemia secondary to illness, home diuretic Rx hx PVD status post surgery DM2 insulin requiring on oral meds, suboptimal control as of recent outpatient hemoglobin A1c of 9.1 last February,, ? Compliance ongoing tobacco abuse Medical telemetry Doxycycline, nebs, low-dose prednisone course Gentle IV hydration Hold home diuretic until creatinine at baseline Replace potassium Nephrology consult RE ARF Pharmacy glycemic control consult Nicotine patch PRN PT OT eval DVT prophylaxis. Coumadin INR goal between 2 and 3 Full code History of Present Illness Chief Complaint: Cough, shortness of breath, abdominal pain, high sugars Primary Care Provider: Edison Mathis MD History obtained from patient and records. Medical history significant for chronic diastolic heart failure EF 55 to 60%, TTE 07/2018, chronic respiratory failure secondary to cor pulmonale, COPD on home O2, NUVIA on CPAP, Hypertension, AFib on Coumadin, hx PVD status post surgery, DM2 insulin requiring on oral meds, ongoing tobacco abuse. Recent confinement last month for decompensated heart failure. 2 days history of junky cough symptoms, increasing shortness of breath, no chest pain. Sick family member. Denies fever chills, aspiration. Achy abdominal discomfort secondary to coughing. Poor appetite, some nausea, no emesis, good bowel movement. Usual leg pain. Weight has been stable at home as per patient between 227 to 237 pounds as per patient. Blood sugars noted to be high at home. Medical History as above Surgical History : Knee surgery, vascular procedure, MELINDA, tonsillectomy Family History : Colon cancer, diabetes, heart disease, thyroid problems Personal/Social history : Half pack daily, occasional EtOH intake Allergies Allergy/AdvReac Type Severity Reaction Status Date / Time Penicillins Allergy Mild Unknown Verified 05/21/19 22:57 rofecoxib Allergy Unknown Unknown Verified 05/21/19 22:57 sulindac Allergy Unknown Unknown Verified 05/21/19 22:57 Home Medications Home Medications Medication Instructions Recorded Confirmed Type Lantus Solostar U-100 Insulin 42 unit SUBCUT QA 08/11/18 05/21/19 History allopurinol 300 mg PO QAM 08/11/18 05/21/19 History aspirin 81 mg PO QAM 08/11/18 05/21/19 History atorvastatin 2 tab PO QAM 08/11/18 05/21/19 History cholecalciferol (vitamin D3) 2,000 unit PO QAM 08/11/18 05/21/19 History [Vitamin D3] cyanocobalamin (vitamin B-12) 1,000 mcg PO QAM 08/11/18 05/21/19 History [Vitamin B-12] gabapentin 300 mg PO HS 08/11/18 05/21/19 History nitroglycerin [Nitrostat] 1 tab SUBLINGUAL DIRECTED PRN 08/11/18 05/21/19 History tramadol 50 mg PO Q6H PRN 08/11/18 05/21/19 History warfarin [Coumadin] 4.5 mg PO [id number]@209908/11/18 05/21/19 History metolazone 2.5 mg tablet 2.5 mg PO DAILY PRN 01/01/19 05/21/19 History metoprolol succinate ER 50 mg 50 mg PO BID 01/01/19 05/21/19 History tablet,extended release 24 hr acetaminophen [Tylenol Extra 1,000 mg PO UD 01/08/19 05/21/19 History Strength] potassium chloride 10 meq PO DAILY 01/08/19 05/21/19 History spironolactone 12.5 mg PO DAILY 01/08/19 05/21/19 History torsemide 40 mg PO BID 04/24/19 05/21/19 History warfarin 3 mg PO [id number]@209904/24/19 05/21/19 History Past Med/Surg History Medical History Tobacco use disorder (Chronic) NUVIA on CPAP (Chronic) Chronic respiratory failure with hypoxia (Chronic) Pickwickian syndrome (Chronic) Chronic atrial fibrillation (Chronic) Lumbar radiculopathy (Chronic) Anemia (Chronic 11/27/13) Hypomagnesemia (Chronic) Hypocalcemia (Chronic) Diabetes mellitus, type II (Chronic) Dyslipidemia (Chronic) HTN (hypertension) (Chronic) Polymyalgia rheumatica (Chronic) Right-sided heart failure (Chronic) Surgical History History of hysterectomy (Resolved) History of total knee replacement (Resolved) Family History Father Heart disease Stroke Mother Diabetes Social History Preferred Language: French Communication Ability: Effective Beliefs That Will Affect Care: None Current Living Situation: Alone Other Information That Helps Us Care for You: No Feels Safe at Home: Yes Smoking Status: Current every day smoker Tobacco Type: cigarettes Cigarettes Per Day: less then 10 Second Hand Exposure: No Hx Alcohol Use: No Hx Substance Use: No Review of Systems Review of Systems: As per HPI, all 10 systems reviewed, all other ROS negative Physical Exam Physical Exam: GENERAL: Comfortable, coughing episodes during encounter, obese, no respiratory distress SKIN: Normal color, warm HEENT: [place] palpebral conjunctivae, no ptosis, dry buccal mucosa NECK : Supple, short, no tenderness CHEST : Decreased breath sounds, expiratory wheezes, no tenderness HEART : Tachycardic, systolic murmur ABDOMEN: distention, left-sided abdominal tenderness EXTREMITIES : Bilateral LE swelling erythematous induration (chronic), minimal LE tenderness, no other conspicuous deformities noted NEUROLOGIC : Coherent, no facial asymmetry, no other gross focality Results & Data Vital Signs (Past 12 Hours) Vital Signs Temp Pulse Pulse Resp BP BP Pulse Ox 05/22/19 02:11 36.7 C 97 H 20 157/85 H 97 05/22/19 01:43 36.3 C L 105 H 19 136/97 95 05/22/19 00:10 109 H 24 145/109 H 97 05/21/19 22:33 116 H 21 120/87 96 05/21/19 22:16 115 H 31 H 94 05/21/19 22:10 36.9 C 115 H 31 H 143/114 H 94 Laboratory Results Laboratory Results WBC 10.24 K/uL (4.8-10.8) 05/21/19 22:24 RBC 4.96 M/uL (4.2-5.4) 05/21/19 22:24 Hgb 15.8 g/dL (12.0-16.0) 05/21/19 22:24 Hct 44.8 % (37-47) 05/21/19 22:24 MCV 90.3 fL (80-100) 05/21/19 22:24 MCH 31.9 pg (25-34) 05/21/19 22:24 MCHC 35.3 g/dL (32-36) 05/21/19 22:24 RDW Std Deviation 47.6 fL (36.4-46.3) H 05/21/19: RDW Coeff of Patrick 14.8 % (11.5-14.5) H 05/21/19 22:24 Plt Count 150 K/uL (130-400) 05/21/19:24 MPV 11.2 fL (7.4-10.4) H 05/21/19:24 Immature Gran % (Auto) 0.3 % 05/21/19 22:24 Neut % (Auto) 75.8 % 05/21/19 22:24 Lymph % (Auto) 17.7 % 05/21/19 22:24 [place] % (Auto) 5.2 % 05/21/19 22:24 Eos % (Auto) 0.7 % 05/21/19:24 Baso % (Auto) 0.3 % 05/21/19: Immature Gran # (Auto) 0.03 K/uL (0.00-0.02) H 05/21/19 22:24 Neut # (Auto) 7.77 K/uL (1.4-6.5) H 05/21/19:24 Lymph # (Auto) 1.81 K/uL (1.2-3.4) 05/21/19 22:24 [place] # (Auto) 0.53 K/uL (0.11-0.59) 05/21/19 22:24 Eos # (Auto) 0.07 K/uL (0-0.5) 05/21/19: Baso # (Auto) 0.03 K/uL (0-0.2) 05/21/19 22:24 PT 22.1 Seconds (9.0-12.0) H 05/21/19 22:24 INR 2.3 (0.9-1.1) H 05/21/19 22:24 APTT 33.3 Seconds (21.0-31.0) H 05/21/19 22:24 PTT Ratio 1.2 05/21/19 22:24 VBG pH 7.45 (7.36-7.41) H 05/21/19 22:59 VBG pCO2 54 mmHg (38-50) H 05/21/19 22:59 VBG pO2 29 mmHg 05/21/19 22:59 VBG HCO3 37 mmol/L 05/21/19 22:59 VBG O2 Saturation < 60.0 % 05/21/19 22:59 VBG Base Excess 10.8 mEq/L 05/21/19 22:59 Barometric Pressure 726.7 mm/Hg 05/21/19 22:59 Sodium 129 mmol/L (136-145) L 05/22/19 01:49 Potassium 2.7 mmol/L (3.5-5.1) L 05/22/19 01:49 Chloride 87 mmol/L (98-107) L 05/22/19 01:49 Carbon Dioxide 37 mmol/L (21-32) H 05/22/19 01:49 Anion Gap 5.0 (3-11) 05/22/19 01:49 BUN 87 mg/dl (7-18) H 05/22/19 01:49 Creatinine 2.24 mg/dl (0.6-1.2) H D 05/22/19 01:49 Est Cr Clr Drug Dosing 26.4 ml/min 05/22/19 01:49 Est GFR ( Amer) 25.1 05/22/19 01:49 Est GFR (Non-Af Amer) 21.7 05/22/19 01:49 BUN/Creatinine Ratio 39.0 (10-20) H 05/22/19 01:49 Glucose 383 mg/dl (70-99) H* 05/22/19 01:49 POC Glucose 432 (70-99) H* 05/22/19 01:08 Calcium 8.8 mg/dl (8.5-10.1) 05/22/19 01:49 Magnesium 2.4 mg/dl (1.8-2.4) 05/21/19 22:24 Total Bilirubin 0.5 mg/dl (0.2-1) 05/22/19 01:49 AST 12 U/L (15-37) L 05/22/19 01:49 ALT 24 U/L (12-78) 05/22/19 01:49 Alkaline Phosphatase 122 U/L (45-117) H 05/22/19 01:49 Troponin I 0.021 ng/ml (0-0.045) 05/21/19 22:24 Total Protein 6.9 gm/dl (6.4-8.2) 05/22/19 01:49 Albumin 3.3 gm/dl (3.4-5.0) L 05/22/19 01:49 Globulin 3.6 gm/dl (2.5-4.0) 05/22/19 01:49 Albumin/Globulin Ratio 0.9 (0.9-2) 05/22/19 01:49 Lipase 309 U/L (73-393) 05/21/19 22:24 Beta-Hydroxybutyric Acd 1.09 mg/dl (0.2-2.81) 05/21/19 22:24 TSH 1.960 uIu/ml (0.300-4.500) 05/21/19 22:24 Urine Color Yellow 05/21/19 22:18 Urine Appearance Clear (Clear) 05/21/19 22:18 Urine pH 5.0 (4.5-7.5) 05/21/19 22:18 Ur Specific [place] 1.015 (1.000-1.030) 05/21/19 22:18 Urine Protein Negative (Negative) 05/21/19 22:18 Urine Glucose (UA) 2+ (Negative) H 05/21/19 22:18 Urine Ketones Negative (Negative) 05/21/19 22:18 Urine Blood Negative (Negative) 05/21/19 22:18 Urine Nitrite Negative (Negative) 05/21/19 22:18 Urine Bilirubin Negative (Negative) 05/21/19 22:18 Urine Urobilinogen Negative (Negative) 05/21/19 22:18 Ur Leukocyte Esterase Negative (Negative) 05/21/19 22:18 Diagnostic Findings Chest x-ray showed Pulmonary vascular congestion. Mild cardiomegaly. EKG as per my interpretation : Rate 110, A. fib, T wave flattening lateral leads, T wave inversion anteroseptal leads
[2019-05-22 02:52] LABS: Beta-Hydroxybutyrate 0.85 mg/dl (0.2-2.81)
[2019-05-22] MEDS ORDERED: DOXYCYCLINE HYCLATE 100 MG in DEXTROSE 5% 100 ML IV STA (02:54)
[2019-05-22] MEDS ORDERED: PROMETHAZINE HCL 12.5 MG in SODIUM CHLORIDE 0.9% 50 ML IV STA (03:09)
[2019-05-22] MEDS ORDERED: PROMETHAZINE 12.5 MG/50.5 ML NSS IV ONE (03:12)
[2019-05-22] MEDS ORDERED: POTASSIUM CHLORIDE 40 MEQ in SODIUM CHLORIDE 0.9% 1000ML 1,000 ML IV STA (03:43)
[2019-05-22] MEDS ORDERED: NITROGLYCERIN SL 0.4 MG/TAB TAB SL PRN (03:45)
[2019-05-22] MEDS ORDERED: HYDROmorphone INJ 0.5 MG/0.5 ML SYR IV PRN (03:45)
[2019-05-22] MEDS ORDERED: PROMETHAZINE HCL 12.5 MG in SODIUM CHLORIDE 0.9% 50 ML IV PRN (03:45)
[2019-05-22] MEDS ORDERED: XOPENEX/ATROVENT 1.25mg/0.5MG NEB COMBO NEB STA (03:45)
[2019-05-22] MEDS ORDERED: PHARMACY GLYCEMIC MGMT CONSULT PRN (03:48)
[2019-05-22] MEDS ORDERED: IPRATROPIUM BROMIDE NEB SOLN 0.02% 2.5 ML VIAL INH STA (03:51)
[2019-05-22] MEDS ORDERED: LEVALBUTEROL 1.25MG/0.5ML NEB INH STA (03:51)
[2019-05-22] MEDS ORDERED: INSULIN ASPART 100 UNITS/ML 3 ML PEN SC STA (03:56)
[2019-05-22] MEDS ORDERED: GLUCAGON FOR INJ 1 MG VIAL SQ PRN (04:00)
[2019-05-22] MEDS ORDERED: DEXTROSE 50% 50 ML SYRINGE IV PRN (04:00)
[2019-05-22] MEDS ORDERED: GLUCOSE 10 TABS/TUBE PO PRN (04:00)
[2019-05-22] MEDS ORDERED: INSULIN HUMAN REGULAR PER UNIT 6 UNITS in SYRINGE 5.94 ML IV ONE (04:00)
[2019-05-22] MEDS ORDERED: GLUCOSE 40% GEL 15 GM TUBE PO PRN (04:00)
[2019-05-22] MEDS ORDERED: CARBOHYDRATES FOR HYPOGLYCEMIA PO PRN (04:00)
[2019-05-22] MEDS ORDERED: POTASSIUM CHLORIDE 20 MEQ TABCR PO ONE (05:00)
[2019-05-22] MEDS: ACETAMINOPHEN 325 MG TAB PO PRN (05:12)
[2019-05-22] MEDS ORDERED: MICONAZOLE NITRATE POWDER 43 GM EXT PRN (05:27)
[2019-05-22 06:10] LABS: Estimated Average Glucose 266 mg/dl; Hemoglobin A1C 10.9 % (4.5-5.6)
--- NOTE | 2019-05-22 06:53 | CT Scan Report ---
CT SCAN OF THE ABDOMEN AND PELVIS WITHOUT CONTRAST CLINICAL HISTORY: mid abd pain COMPARISON STUDY: CT scan performed December 2012 TECHNIQUE: CT scan of the abdomen and pelvis was performed from the lung bases to the proximal femurs . Images are reviewed in the axial, sagittal, and coronal planes. IV contrast was not administered fo r this examination. A dose lowering technique was utilized adhering to the principles of ALARA. CT DOSE: FINDINGS: Lower chest: There are mild basilar atelectatic changes. The heart is enlarged. Liver: The unenhanced liver is normal in size, contour, and attenuation. There is no intrahepatic heidi iary ductal dilatation. Gallbladder: Mildly distended. Adenomyomatosis is suspected. No gallbladder wall thickening. Spleen: Top normal in size Pancreas: Unremarkable. Adrenal glands: No suspicious adrenal masses are visualized. Kidneys: There is a 11 mm lower pole left renal calculus. There is no hydronephrosis. No ureteral or bladder calculi are visualized. Bowel: There are no transition zone to indicate bowel obstruction. There is no evidence of acute appe ndicitis. There is no evidence of acute diverticulitis. There is an 11 mm densely opaque linear struc ture within the distal ileum. Peritoneum: There is no intraperitoneal free air or abdominal ascites. Vasculature: The abdominal aorta is normal in course and caliber. Adenopathy: None. Pelvic viscera: The bladder, and pelvic viscera are unremarkable. Skeletal structures: No destructive osseous lesions are seen. IMPRESSION: 1. No evidence of bowel obstruction. No evidence of free air 2. Normal appendix. No evidence of acute diverticulitis 3. 11 mm lower pole left renal calculus. No evidence of hydronephrosis 4. Unexplained 11 mm densely opaque linear structure within the distal ileum Electronically signed by: Christopher Delacruz M.D. 05/22/2019 6:51 AM
[2019-05-22 08:24] LABS: Basophils # (auto) 0.02 K/uL (0-0.2); Basophils % (auto) 0.2 %; Eosinophils # (auto) 0.03 K/uL (0-0.5); Eosinophils % (auto) 0.3 %; Hematocrit (blood only) 42.6 % (37-47); Hemoglobin 14.9 g/dL (12.0-16.0); Immature Granulocytes # (auto) 0.04 K/uL (0.00-0.02); Immature Granulocytes % (auto) 0.4 %; Lymphocytes # (auto) 0.92 K/uL (1.2-3.4); Lymphocytes % (auto) 9.5 %; Mean Corpuscular Volume 91.6 fL (80-100); Mean Platelet Volume 10.6 fL (7.4-10.4); Monocytes # (auto) 0.15 K/uL (0.11-0.59); Monocytes % (auto) 1.5 %; Neutrophils # (auto) 8.54 K/uL (1.4-6.5); Neutrophils % (auto) 88.1 %; Platelet Count 130 K/uL (130-400); RDW Coefficient of Variation 14.9 % (11.5-14.5); RDW Standard Deviation 49.7 fL (36.4-46.3); Red Blood Count 4.65 M/uL (4.2-5.4)
[2019-05-22 08:38] LABS: INR 2.6 (0.9-1.1); Prothrombin Time 24.5 Seconds (9.0-12.0)
[2019-05-22] MEDS: CYANOCOBALAMIN 500 MCG TABLET (VITAMIN B-12) PO SCH (09:01)
[2019-05-22] MEDS: ASPIRIN 81 MG ECTAB PO SCH (09:01)
[2019-05-22] MEDS: ATORVASTATIN 40 MG TAB PO SCH (09:01)
[2019-05-22 09:04] LABS: BUN Creatinine Ratio 40.5 (10-20); Calcium 9.6 mg/dl (8.5-10.1); Creatinine Clr Calc Pharmacy 28.8 ml/min; Est GFR (African American) 27.6; Est GFR (Non-African American) 23.8; Potassium 3.8 mmol/L (3.5-5.1)
[2019-05-22] MEDS: INSULIN ASPART 100 UNITS/ML 3 ML PEN SC SCH ×5 (09:06→23:53)
--- NOTE | 2019-05-22 10:20 | Pharmacy Report ---
Pharmacy Glycemic Short Note 2 - Date of Service May 22, 2019 - Glycemic Short BSG Results (Last 24 hours): 05/21/19 05/21/19 05/22/19 22:14 22:24 01:08 Glucose 434 H* POC Glucose 502 H* 432 H* 05/22/19 05/22/19 05/22/19 01:49 03:42 06:27 Glucose 383 H* POC Glucose 395 H* 193 H 05/22/19 05/22/19 07:33 08:08 Glucose 239 H POC Glucose 231 H OUTPATIENT ANTIDIABETIC REGIMEN: * Lantus 42 units SQ qam ASSESSMENT: * Patient with COPD exacerbation presenting with elevated BSG and severe hypokalemia. Patient received 6 units IV insulin, 20 units of lantus and 20mg IV solumedrol in the ED overnight. Potassium was replaced and repeat this morning was 3.8. Patient is ordered a clear liquid diet. I will give an additional conservative lantus dose this morning and continue a weight based stress of three NovoLog sclae q4 hours. Will order lantus for tomorrow morning at 30 units qam based on past data and most likely will order a nph dose on top of that to cover the prednisone 20mg starting tomorrow morning. PLAN FOR INPATIENT GLYCEMIC CONTROL: * Hold outpatient oral diabetes medications * Basal insulin * Lantus 10 units SQ this morning (20 units already given @ ~0200) * Bolus insulin * NovoLog per scale ACHS or Q4hrs while NPO * Goal Range: Low 140 mg/dL - High 180 mg/dL * Correction Factor: 15 mg/dL/unit * Nutritional / Prandial insulin per carb ratio of 1 unit per 6 grams CHO consumed
[2019-05-22] MEDS ORDERED: WARFARIN SOD 2 MG TAB PO SCH (16:00)
[2019-05-22] MEDS ORDERED: WARFARIN SOD 2.5 MG TAB PO SCH (16:00)
--- NOTE | 2019-05-22 20:15 | Hospitalist Progress Note ---
Date of Service May 22, 2019 Assessment & Plan (1) COPD exacerbation: Symptoms improved. Continue prednisone, doxycycline, nebs. (2) Chronic respiratory failure with hypoxia: Continue supplemental oxygen. (3) NUVIA on CPAP: Continue CPAP. (4) Chronic atrial fibrillation: Rate controlled on metoprolol. Continue warfarin. (5) CHF (congestive heart failure): History of chronic left ventricular diastolic heart failure and right-sided heart failure. Diuretics on hold due to acute kidney injury. Follow exam and labs and resume diuretic therapy once renal function improves. (6) HTN (hypertension): Continue metoprolol. Diuretics on hold due to HALI. (7) HALI (acute kidney injury): Serum creatinine at time of admission 2.5 baseline around 1.1. Diuretics on hold. Receiving gentle IV hydration. (8) Hypokalemia: Serum potassium at time of admission was 2.9, repeat 2.7. Received replacement. Potassium this morning 3.8. Follow. (9) Diabetes mellitus, type II: Diabetes mellitus type 2, poorly controlled. Random blood sugar at time of admission was 434. Hgb A1C 10.9. On low-dose prednisone for COPD exacerbation. Pharmacy consulted for glycemic management. Ongoing education / support. (10) Dyslipidemia: Continue atorvastatin. (11) DVT prophylaxis: On warfarin with therapeutic INR. Ambulate. (12) Discharge planning issues: Anticipated discharge to home. Family Medicine follow-up with Dr. Mathis. Subjective Admitted early this morning with exacerbation of COPD, acute kidney injury, poor control diabetes. Feels better. Cough and shortness of breath improved. Physical Exam Constitutional: no acute distress Respiratory: no respiratory distress Auscultation: + wheezes (diffuse) Cardiovascular: Rate/Rhythm: + irregularly irregular Vessels: no JVD Extremities: + edema (1+ pretibial with chronic venous stasis changes); no calf tenderness Gastrointestinal (Abdomen): normal bowel sounds, soft, nontender, no hepatosplenomegaly Skin: no rashes, warm and dry Psychiatric: Orientation: alert and oriented x 3 Results & Data Vital Signs (Past 12 Hours) Vital Signs Temp Pulse Pulse Resp BP Pulse Ox 05/22/19 19:28 36.4 C L 88 22 137/83 95 05/22/19 15:15 36.4 C L 99 H 20 122/73 97 05/22/19 11:27 36.5 C 89 20 134/78 92 05/22/19 08:00 105 H Laboratory Results Laboratory Results - last 24 hr 05/21/19 05/21/19 05/21/19 22:14 22:18 22:24 WBC 10.24 RBC 4.96 Hgb 15.8 Hct 44.8 MCV 90.3 MCH 31.9 MCHC 35.3 RDW Std Deviation 47.6 H RDW Coeff of Patrick 14.8 H Plt Count 150 MPV 11.2 H Immature Gran % (Auto) 0.3 Neut % (Auto) 75.8 Lymph % (Auto) 17.7 [place] % (Auto) 5.2 Eos % (Auto) 0.7 Baso % (Auto) 0.3 Immature Gran # (Auto) 0.03 H Neut # (Auto) 7.77 H Lymph # (Auto) 1.81 [place] # (Auto) 0.53 Eos # (Auto) 0.07 Baso # (Auto) 0.03 PT INR APTT PTT Ratio VBG pH VBG pCO2 VBG pO2 VBG HCO3 VBG O2 Saturation VBG Base Excess Barometric Pressure Sodium Potassium Chloride Carbon Dioxide Anion Gap BUN Creatinine Est Cr Clr Drug Dosing Est GFR ( Amer) Est GFR (Non-Af Amer) BUN/Creatinine Ratio Glucose POC Glucose 502 H* Estimat Average Glucose Hemoglobin A1c Calcium Magnesium Total Bilirubin AST ALT Alkaline Phosphatase Troponin I Total Protein Albumin Globulin Albumin/Globulin Ratio Lipase Beta-Hydroxybutyric Acd TSH Urine Color Yellow Urine Appearance Clear Urine pH 5.0 Ur Specific [place] 1.015 Urine Protein Negative Urine Glucose (UA) 2+ H Urine Ketones Negative Urine Blood Negative Urine Nitrite Negative Urine Bilirubin Negative Urine Urobilinogen Negative Ur Leukocyte Esterase Negative 05/21/19 05/21/19 05/21/19 22:24 22:24 22:24 WBC RBC Hgb Hct MCV MCH MCHC RDW Std Deviation RDW Coeff of Patrick Plt Count MPV Immature Gran % (Auto) Neut % (Auto) Lymph % (Auto) [place] % (Auto) Eos % (Auto) Baso % (Auto) Immature Gran # (Auto) Neut # (Auto) Lymph # (Auto) [place] # (Auto) Eos # (Auto) Baso # (Auto) PT 22.1 H INR 2.3 H APTT 33.3 H PTT Ratio 1.2 VBG pH VBG pCO2 VBG pO2 VBG HCO3 VBG O2 Saturation VBG Base Excess Barometric Pressure Sodium 130 L Potassium 2.9 L Chloride 84 L Carbon Dioxide 36 H Anion Gap 10.0 BUN 83 H Creatinine 2.55 H Est Cr Clr Drug Dosing 23.2 Est GFR ( Amer) 21.5 Est GFR (Non-Af Amer) 18.5 BUN/Creatinine Ratio 32.6 H Glucose 434 H* POC Glucose Estimat Average Glucose 266 Hemoglobin A1c 10.9 H Calcium 9.7 Magnesium 2.4 Total Bilirubin 0.5 AST 15 ALT 29 Alkaline Phosphatase 128 H Troponin I 0.021 Total Protein 7.5 Albumin 3.5 Globulin 4.0 Albumin/Globulin Ratio 0.9 Lipase 309 Beta-Hydroxybutyric Acd 1.09 TSH 1.960 Urine Color Urine Appearance Urine pH Ur Specific [place] Urine Protein Urine Glucose (UA) Urine Ketones Urine Blood Urine Nitrite Urine Bilirubin Urine Urobilinogen Ur Leukocyte Esterase 05/21/19 05/22/19 05/22/19 22:59 01:08 01:49 WBC RBC Hgb Hct MCV MCH MCHC RDW Std Deviation RDW Coeff of Patrick Plt Count MPV Immature Gran % (Auto) Neut % (Auto) Lymph % (Auto) [place] % (Auto) Eos % (Auto) Baso % (Auto) Immature Gran # (Auto) Neut # (Auto) Lymph # (Auto) [place] # (Auto) Eos # (Auto) Baso # (Auto) PT INR APTT PTT Ratio VBG pH 7.45 H VBG pCO2 54 H VBG pO2 29 VBG HCO3 37 VBG O2 Saturation < 60.0 VBG Base Excess 10.8 Barometric Pressure 726.7 Sodium 129 L Potassium 2.7 L Chloride 87 L Carbon Dioxide 37 H Anion Gap 5.0 BUN 87 H Creatinine 2.24 H D Est Cr Clr Drug Dosing 26.4 Est GFR ( Amer) 25.1 Est GFR (Non-Af Amer) 21.7 BUN/Creatinine Ratio 39.0 H Glucose 383 H* POC Glucose 432 H* Estimat Average Glucose Hemoglobin A1c Calcium 8.8 Magnesium Total Bilirubin 0.5 AST 12 L ALT 24 Alkaline Phosphatase 122 H Troponin I Total Protein 6.9 Albumin 3.3 L Globulin 3.6 Albumin/Globulin Ratio 0.9 Lipase Beta-Hydroxybutyric Acd 0.85 TSH Urine Color Urine Appearance Urine pH Ur Specific [place] Urine Protein Urine Glucose (UA) Urine Ketones Urine Blood Urine Nitrite Urine Bilirubin Urine Urobilinogen Ur Leukocyte Esterase 05/22/19 05/22/19 05/22/19 03:42 06:27 07:33 WBC RBC Hgb Hct MCV MCH MCHC RDW Std Deviation RDW Coeff of [place] Plt Count MPV Immature Gran % (Auto) Neut % (Auto) Lymph % (Auto) [place] % (Auto) Eos % (Auto) Baso % (Auto) Immature Gran # (Auto) Neut # (Auto) Lymph # (Auto) [place] # (Auto) Eos # (Auto) Baso # (Auto) PT INR APTT PTT Ratio VBG pH VBG pCO2 VBG pO2 VBG HCO3 VBG O2 Saturation VBG Base Excess Barometric Pressure Sodium Potassium Chloride Carbon Dioxide Anion Gap BUN Creatinine Est Cr Clr Drug Dosing Est GFR ( Amer) Est GFR (Non-Af Amer) BUN/Creatinine Ratio Glucose POC Glucose 395 H* 193 H 231 H Estimat Average Glucose Hemoglobin A1c Calcium Magnesium Total Bilirubin AST ALT Alkaline Phosphatase Troponin I Total Protein Albumin Globulin Albumin/Globulin Ratio Lipase Beta-Hydroxybutyric Acd TSH Urine Color Urine Appearance Urine pH Ur Specific [place] Urine Protein Urine Glucose (UA) Urine Ketones Urine Blood Urine Nitrite Urine Bilirubin Urine Urobilinogen Ur Leukocyte Esterase 05/22/19 05/22/19 05/22/19 08:08 08:08 08:08 WBC 9.70 RBC 4.65 Hgb 14.9 Hct 42.6 MCV 91.6 MCH 32.0 MCHC 35.0 RDW Std Deviation 49.7 H RDW Coeff of [place] 14.9 H Plt Count 130 MPV 10.6 H Immature Gran % (Auto) 0.4 Neut % (Auto) 88.1 Lymph % (Auto) 9.5 [place] % (Auto) 1.5 Eos % (Auto) 0.3 Baso % (Auto) 0.2 Immature Gran # (Auto) 0.04 H Neut # (Auto) 8.54 H Lymph # (Auto) 0.92 L [place] # (Auto) 0.15 Eos # (Auto) 0.03 Baso # (Auto) 0.02 PT 24.5 H INR 2.6 H APTT PTT Ratio VBG pH VBG pCO2 VBG pO2 VBG HCO3 VBG O2 Saturation VBG Base Excess Barometric Pressure Sodium 135 L Potassium 3.8 D Chloride 94 L Carbon Dioxide 34 H Anion Gap 7.0 BUN 84 H Creatinine 2.07 H Est Cr Clr Drug Dosing 28.8 Est GFR ( Amer) 27.6 Est GFR (Non-Af Amer) 23.8 BUN/Creatinine Ratio 40.5 H Glucose 239 H POC Glucose Estimat Average Glucose Hemoglobin A1c Calcium 9.6 Magnesium Total Bilirubin AST ALT Alkaline Phosphatase Troponin I Total Protein Albumin Globulin Albumin/Globulin Ratio Lipase Beta-Hydroxybutyric Acd TSH Urine Color Urine Appearance Urine pH Ur Specific [place] Urine Protein Urine Glucose (UA) Urine Ketones Urine Blood Urine Nitrite Urine Bilirubin Urine Urobilinogen Ur Leukocyte Esterase 05/22/19 05/22/19 05/22/19 11:20 11:22 16:31 WBC RBC Hgb Hct MCV MCH MCHC RDW Std Deviation RDW Coeff of [place] Plt Count MPV Immature Gran % (Auto) Neut % (Auto) Lymph % (Auto) [place] % (Auto) Eos % (Auto) Baso % (Auto) Immature Gran # (Auto) Neut # (Auto) Lymph # (Auto) [place] # (Auto) Eos # (Auto) Baso # (Auto) PT INR APTT PTT Ratio VBG pH VBG pCO2 VBG pO2 VBG HCO3 VBG O2 Saturation VBG Base Excess Barometric Pressure Sodium Potassium Chloride Carbon Dioxide Anion Gap BUN Creatinine Est Cr Clr Drug Dosing Est GFR ( Amer) Est GFR (Non-Af Amer) BUN/Creatinine Ratio Glucose POC Glucose 400 H* 395 H* 336 H* Estimat Average Glucose Hemoglobin A1c Calcium Magnesium Total Bilirubin AST ALT Alkaline Phosphatase Troponin I Total Protein Albumin Globulin Albumin/Globulin Ratio Lipase Beta-Hydroxybutyric Acd TSH Urine Color Urine Appearance Urine pH Ur Specific [place] Urine Protein Urine Glucose (UA) Urine Ketones Urine Blood Urine Nitrite Urine Bilirubin Urine Urobilinogen Ur Leukocyte Esterase 05/22/19 16:32 WBC RBC Hgb Hct MCV MCH MCHC RDW Std Deviation RDW Coeff of Patrick Plt Count MPV Immature Gran % (Auto) Neut % (Auto) Lymph % (Auto) [place] % (Auto) Eos % (Auto) Baso % (Auto) Immature Gran # (Auto) Neut # (Auto) Lymph # (Auto) [place] # (Auto) Eos # (Auto) Baso # (Auto) PT INR APTT PTT Ratio VBG pH VBG pCO2 VBG pO2 VBG HCO3 VBG O2 Saturation VBG Base Excess Barometric Pressure Sodium Potassium Chloride Carbon Dioxide Anion Gap BUN Creatinine Est Cr Clr Drug Dosing Est GFR ( Amer) Est GFR (Non-Af Amer) BUN/Creatinine Ratio Glucose POC Glucose 329 H* Estimat Average Glucose Hemoglobin A1c Calcium Magnesium Total Bilirubin AST ALT Alkaline Phosphatase Troponin I Total Protein Albumin Globulin Albumin/Globulin Ratio Lipase Beta-Hydroxybutyric Acd TSH Urine Color Urine Appearance Urine pH Ur Specific [place] Urine Protein Urine Glucose (UA) Urine Ketones Urine Blood Urine Nitrite Urine Bilirubin Urine Urobilinogen Ur Leukocyte Esterase (1) Diabetes mellitus, type II Diabetes mellitus custodial insulin use: unspecified custodial insulin use status Diabetes mellitus complication status: with kidney complications Diabetes mellitus complication detail: with chronic kidney disease (2) HTN (hypertension) Hypertension type: unspecified Qualified Code(s): I10 - Essential (primary) hypertension
--- NOTE | 2019-05-22 20:15 | Nephrology Consultation ---
Date of Consultation May 22, 2019 Assessment & Plan (1) HALI (acute kidney injury): Patient with HALI likely pre renal azotemia in setting of URTI, osmotic diuresis due to DM and lasix, UA was concentrated but no active sediment. BP is now acceptable. Agree with holding lasix. If cr does not improve, will give a a litre of ringers lactate tomorrow. Monitor with daily BMP. No contrast unless life saving (2) Hypokalemia: Due to poor intake and transcellular shifts with insulin. Improving with kcl supplements. (3) Chronic respiratory failure with hypoxia: Due to COPD. Does not appear to be volume overload. Ok to hold lasix. May consider giving some IV fluids. History of Present Illness Reason for Consultation: HALI Requesting Physician: Cyn Iyer MD Attending Physician: Liam Mosley MD History of Present Illness This is a 68yoF whom we are asked to see for HALI. She was admitted on 05/22 with hyperglycemia, nausea and respiratory symptoms. Medical history significant for chronic diastolic heart failure EF 55 to 60%, chronic respiratory failure secondary to cor pulmonale, COPD on home O2, NUVIA on CPAP, Hypertension, AFib on Coumadin, hx PVD status post surgery, DM2,and ongoing tobacco abuse. She has fairly good renal function at baseline with cr of 1.1 on 04/26/19 at baseline. Admission cr was 2.5 and down to after 12hours. SHe reports poor po intake over the past couple of days but denied vomiting or diarrhoea. SHe has nausea. SHe takes lasix 40mg bid but denied NSAID use. No urinary symptoms. She feels a little better but sleepy this morning. No leg edema. B reathing is at baseline. Allergies Allergy/AdvReac Type Severity Reaction Status Date / Time Penicillins Allergy Mild Unknown Verified 05/21/19 22:57 rofecoxib Allergy Unknown Unknown Verified 05/21/19 22:57 sulindac Allergy Unknown Unknown Verified 05/21/19 22:57 Home Medications Home Medications Medication Instructions Recorded Confirmed Type Lantus Solostar U-100 Insulin 42 unit SUBCUT QA 08/11/18 05/21/19 History allopurinol 300 mg PO QAM 08/11/18 05/21/19 History aspirin 81 mg PO QAM 08/11/18 05/21/19 History atorvastatin 2 tab PO QAM 08/11/18 05/21/19 History cholecalciferol (vitamin D3) 2,000 unit PO QAM 08/11/18 05/21/19 History [Vitamin D3] cyanocobalamin (vitamin B-12) 1,000 mcg PO QAM 08/11/18 05/21/19 History [Vitamin B-12] gabapentin 300 mg PO HS 08/11/18 05/21/19 History nitroglycerin [Nitrostat] 1 tab SUBLINGUAL DIRECTED PRN 08/11/18 05/21/19 History tramadol 50 mg PO Q6H PRN 08/11/18 05/21/19 History warfarin [Coumadin] 4.5 mg PO SUTUTH@2100 08/11/18 05/21/19 History metolazone 2.5 mg tablet 2.5 mg PO DAILY PRN 01/01/19 05/21/19 History metoprolol succinate ER 50 mg 50 mg PO BID 01/01/19 05/21/19 History tablet,extended release 24 hr acetaminophen [Tylenol Extra 1,000 mg PO UD 01/08/19 05/21/19 History Strength] potassium chloride 10 meq PO DAILY 01/08/19 05/21/19 History spironolactone 12.5 mg PO DAILY 01/08/19 05/21/19 History torsemide 40 mg PO BID 04/24/19 05/21/19 History warfarin 3 mg PO MOWEFRSA@2100 04/24/19 05/21/19 History Patient History Medical History Tobacco use disorder (Chronic) NUVIA on CPAP (Chronic) Chronic respiratory failure with hypoxia (Chronic) Pickwickian syndrome (Chronic) Chronic atrial fibrillation (Chronic) Lumbar radiculopathy (Chronic) Anemia (Chronic 11/27/13) Hypomagnesemia (Chronic) Hypocalcemia (Chronic) Diabetes mellitus, type II (Chronic) Dyslipidemia (Chronic) HTN (hypertension) (Chronic) Polymyalgia rheumatica (Chronic) Right-sided heart failure (Chronic) Surgical History History of hysterectomy (Resolved) History of total knee replacement (Resolved) Family History Father Heart disease Stroke Mother Diabetes Social History Preferred Language: Bengali Communication Ability: Effective Beliefs That Will Affect Care: None marital status: / Current Living Situation: Alone Other Information That Helps Us Care for You: No Feels Safe at Home: Yes Smoking Status: Current every day smoker Tobacco Type: cigarettes Cigarettes Per Day: less then 10 Second Hand Exposure: No Hx Alcohol Use: No Hx Substance Use: No Review of Systems Review of Systems: All systems reviewed & are unremarkable except as noted in HPI & below Physical Exam Physical Exam: General exam: Obese, Appears comfortable, no acute distress HEENT: Pupils are equal and reactive to light Neck: No JVD, neck is supple trachea is midline Respiratory system: reduced breath sounds bilaterally. Gastrointestinal: Abdomen is soft, non distended, non tender, bowel sounds are present CVS: Regular rate and rhythm. No murmurs, rubs or gallops Musculoskeletal: No joint or muscle tenderness Extremities: Non tender, no edema, peripheral pulses are present Neuro: Oriented, no tremors, no focal neurological deficits Skin: No rashes Results & Data Vital Signs (Past 12 Hours) Vital Signs Temp Pulse Resp BP Pulse Ox 05/22/19 19:28 36.4 C L 88 22 137/83 95 05/22/19 15:15 36.4 C L 99 H 20 122/73 97 05/22/19 11:27 36.5 C 89 20 134/78 92 Laboratory Results Laboratory Results - last 24 hr 05/21/19 05/21/19 05/21/19 22:14 22:18 22:24 WBC 10.24 RBC 4.96 Hgb 15.8 Hct 44.8 MCV 90.3 MCH 31.9 MCHC 35.3 RDW Std Deviation 47.6 H RDW Coeff of Patrick 14.8 H Plt Count 150 MPV 11.2 H Immature Gran % (Auto) 0.3 Neut % (Auto) 75.8 Lymph % (Auto) 17.7 [place] % (Auto) 5.2 Eos % (Auto) 0.7 Baso % (Auto) 0.3 Immature Gran # (Auto) 0.03 H Neut # (Auto) 7.77 H Lymph # (Auto) 1.81 [place] # (Auto) 0.53 Eos # (Auto) 0.07 Baso # (Auto) 0.03 PT INR APTT PTT Ratio VBG pH VBG pCO2 VBG pO2 VBG HCO3 VBG O2 Saturation VBG Base Excess Barometric Pressure Sodium Potassium Chloride Carbon Dioxide Anion Gap BUN Creatinine Est Cr Clr Drug Dosing Est GFR ( Amer) Est GFR (Non-Af Amer) BUN/Creatinine Ratio Glucose POC Glucose 502 H* Estimat Average Glucose Hemoglobin A1c Calcium Magnesium Total Bilirubin AST ALT Alkaline Phosphatase Troponin I Total Protein Albumin Globulin Albumin/Globulin Ratio Lipase Beta-Hydroxybutyric Acd TSH Urine Color Yellow Urine Appearance Clear Urine pH 5.0 Ur Specific [place] 1.015 Urine Protein Negative Urine Glucose (UA) 2+ H Urine Ketones Negative Urine Blood Negative Urine Nitrite Negative Urine Bilirubin Negative Urine Urobilinogen Negative Ur Leukocyte Esterase Negative 05/21/19 05/21/19 05/21/19 22:24 22:24 22:24 WBC RBC Hgb Hct MCV MCH MCHC RDW Std Deviation RDW Coeff of Patrick Plt Count MPV Immature Gran % (Auto) Neut % (Auto) Lymph % (Auto) [place] % (Auto) Eos % (Auto) Baso % (Auto) Immature Gran # (Auto) Neut # (Auto) Lymph # (Auto) [place] # (Auto) Eos # (Auto) Baso # (Auto) PT 22.1 H INR 2.3 H APTT 33.3 H PTT Ratio 1.2 VBG pH VBG pCO2 VBG pO2 VBG HCO3 VBG O2 Saturation VBG Base Excess Barometric Pressure Sodium 130 L Potassium 2.9 L Chloride 84 L Carbon Dioxide 36 H Anion Gap 10.0 BUN 83 H Creatinine 2.55 H Est Cr Clr Drug Dosing 23.2 Est GFR ( Amer) 21.5 Est GFR (Non-Af Amer) 18.5 BUN/Creatinine Ratio 32.6 H Glucose 434 H* POC Glucose Estimat Average Glucose 266 Hemoglobin A1c 10.9 H Calcium 9.7 Magnesium 2.4 Total Bilirubin 0.5 AST 15 ALT 29 Alkaline Phosphatase 128 H Troponin I 0.021 Total Protein 7.5 Albumin 3.5 Globulin 4.0 Albumin/Globulin Ratio 0.9 Lipase 309 Beta-Hydroxybutyric Acd 1.09 TSH 1.960 Urine Color Urine Appearance Urine pH Ur Specific [place] Urine Protein Urine Glucose (UA) Urine Ketones Urine Blood Urine Nitrite Urine Bilirubin Urine Urobilinogen Ur Leukocyte Esterase 05/21/19 05/22/19 05/22/19 22:59 01:08 01:49 WBC RBC Hgb Hct MCV MCH MCHC RDW Std Deviation RDW Coeff of Patrick Plt Count MPV Immature Gran % (Auto) Neut % (Auto) Lymph % (Auto) [place] % (Auto) Eos % (Auto) Baso % (Auto) Immature Gran # (Auto) Neut # (Auto) Lymph # (Auto) [place] # (Auto) Eos # (Auto) Baso # (Auto) PT INR APTT PTT Ratio VBG pH 7.45 H VBG pCO2 54 H VBG pO2 29 VBG HCO3 37 VBG O2 Saturation < 60.0 VBG Base Excess 10.8 Barometric Pressure 726.7 Sodium 129 L Potassium 2.7 L Chloride 87 L Carbon Dioxide 37 H Anion Gap 5.0 BUN 87 H Creatinine 2.24 H D Est Cr Clr Drug Dosing 26.4 Est GFR ( Amer) 25.1 Est GFR (Non-Af Amer) 21.7 BUN/Creatinine Ratio 39.0 H Glucose 383 H* POC Glucose 432 H* Estimat Average Glucose Hemoglobin A1c Calcium 8.8 Magnesium Total Bilirubin 0.5 AST 12 L ALT 24 Alkaline Phosphatase 122 H Troponin I Total Protein 6.9 Albumin 3.3 L Globulin 3.6 Albumin/Globulin Ratio 0.9 Lipase Beta-Hydroxybutyric Acd 0.85 TSH Urine Color Urine Appearance Urine pH Ur Specific [place] Urine Protein Urine Glucose (UA) Urine Ketones Urine Blood Urine Nitrite Urine Bilirubin Urine Urobilinogen Ur Leukocyte Esterase 05/22/19 05/22/19 05/22/19 03:42 06:27 07:33 WBC RBC Hgb Hct MCV MCH MCHC RDW Std Deviation RDW Coeff of Patrick Plt Count MPV Immature Gran % (Auto) Neut % (Auto) Lymph % (Auto) [place] % (Auto) Eos % (Auto) Baso % (Auto) Immature Gran # (Auto) Neut # (Auto) Lymph # (Auto) [place] # (Auto) Eos # (Auto) Baso # (Auto) PT INR APTT PTT Ratio VBG pH VBG pCO2 VBG pO2 VBG HCO3 VBG O2 Saturation VBG Base Excess Barometric Pressure Sodium Potassium Chloride Carbon Dioxide Anion Gap BUN Creatinine Est Cr Clr Drug Dosing Est GFR ( Amer) Est GFR (Non-Af Amer) BUN/Creatinine Ratio Glucose POC Glucose 395 H* 193 H 231 H Estimat Average Glucose Hemoglobin A1c Calcium Magnesium Total Bilirubin AST ALT Alkaline Phosphatase Troponin I Total Protein Albumin Globulin Albumin/Globulin Ratio Lipase Beta-Hydroxybutyric Acd TSH Urine Color Urine Appearance Urine pH Ur Specific [place] Urine Protein Urine Glucose (UA) Urine Ketones Urine Blood Urine Nitrite Urine Bilirubin Urine Urobilinogen Ur Leukocyte Esterase 05/22/19 05/22/19 05/22/19 08:08 08:08 08:08 WBC 9.70 RBC 4.65 Hgb 14.9 Hct 42.6 MCV 91.6 MCH 32.0 MCHC 35.0 RDW Std Deviation 49.7 H RDW Coeff of Patrick 14.9 H Plt Count 130 MPV 10.6 H Immature Gran % (Auto) 0.4 Neut % (Auto) 88.1 Lymph % (Auto) 9.5 [place] % (Auto) 1.5 Eos % (Auto) 0.3 Baso % (Auto) 0.2 Immature Gran # (Auto) 0.04 H Neut # (Auto) 8.54 H Lymph # (Auto) 0.92 L [place] # (Auto) 0.15 Eos # (Auto) 0.03 Baso # (Auto) 0.02 PT 24.5 H INR 2.6 H APTT PTT Ratio VBG pH VBG pCO2 VBG pO2 VBG HCO3 VBG O2 Saturation VBG Base Excess Barometric Pressure Sodium 135 L Potassium 3.8 D Chloride 94 L Carbon Dioxide 34 H Anion Gap 7.0 BUN 84 H Creatinine 2.07 H Est Cr Clr Drug Dosing 28.8 Est GFR ( Amer) 27.6 Est GFR (Non-Af Amer) 23.8 BUN/Creatinine Ratio 40.5 H Glucose 239 H POC Glucose Estimat Average Glucose Hemoglobin A1c Calcium 9.6 Magnesium Total Bilirubin AST ALT Alkaline Phosphatase Troponin I Total Protein Albumin Globulin Albumin/Globulin Ratio Lipase Beta-Hydroxybutyric Acd TSH Urine Color Urine Appearance Urine pH Ur Specific [place] Urine Protein Urine Glucose (UA) Urine Ketones Urine Blood Urine Nitrite Urine Bilirubin Urine Urobilinogen Ur Leukocyte Esterase 05/22/19 05/22/19 05/22/19 11:20 11:22 16:31 WBC RBC Hgb Hct MCV MCH MCHC RDW Std Deviation RDW Coeff of Patrick Plt Count MPV Immature Gran % (Auto) Neut % (Auto) Lymph % (Auto) [place] % (Auto) Eos % (Auto) Baso % (Auto) Immature Gran # (Auto) Neut # (Auto) Lymph # (Auto) [place] # (Auto) Eos # (Auto) Baso # (Auto) PT INR APTT PTT Ratio VBG pH VBG pCO2 VBG pO2 VBG HCO3 VBG O2 Saturation VBG Base Excess Barometric Pressure Sodium Potassium Chloride Carbon Dioxide Anion Gap BUN Creatinine Est Cr Clr Drug Dosing Est GFR ( Amer) Est GFR (Non-Af Amer) BUN/Creatinine Ratio Glucose POC Glucose 400 H* 395 H* 336 H* Estimat Average Glucose Hemoglobin A1c Calcium Magnesium Total Bilirubin AST ALT Alkaline Phosphatase Troponin I Total Protein Albumin Globulin Albumin/Globulin Ratio Lipase Beta-Hydroxybutyric Acd TSH Urine Color Urine Appearance Urine pH Ur Specific [place] Urine Protein Urine Glucose (UA) Urine Ketones Urine Blood Urine Nitrite Urine Bilirubin Urine Urobilinogen Ur Leukocyte Esterase 05/22/19 16:32 WBC RBC Hgb Hct MCV MCH MCHC RDW Std Deviation RDW Coeff of Patrick Plt Count MPV Immature Gran % (Auto) Neut % (Auto) Lymph % (Auto) [place] % (Auto) Eos % (Auto) Baso % (Auto) Immature Gran # (Auto) Neut # (Auto) Lymph # (Auto) [place] # (Auto) Eos # (Auto) Baso # (Auto) PT INR APTT PTT Ratio VBG pH VBG pCO2 VBG pO2 VBG HCO3 VBG O2 Saturation VBG Base Excess Barometric Pressure Sodium Potassium Chloride Carbon Dioxide Anion Gap BUN Creatinine Est Cr Clr Drug Dosing Est GFR ( Amer) Est GFR (Non-Af Amer) BUN/Creatinine Ratio Glucose POC Glucose 329 H* Estimat Average Glucose Hemoglobin A1c Calcium Magnesium Total Bilirubin AST ALT Alkaline Phosphatase Troponin I Total Protein Albumin Globulin Albumin/Globulin Ratio Lipase Beta-Hydroxybutyric Acd TSH Urine Color Urine Appearance Urine pH Ur Specific [place] Urine Protein Urine Glucose (UA) Urine Ketones Urine Blood Urine Nitrite Urine Bilirubin Urine Urobilinogen Ur Leukocyte Esterase
[2019-05-22] MEDS ORDERED: LEVALBUTEROL HCL 0.63 MG/3 ML NEB NEB PRN (20:16)
[2019-05-22] MEDS ORDERED: GABAPENTIN 100 MG CAP PO SCH (21:00)
[2019-05-22] MEDS ORDERED: INSULIN HUMAN REGULAR PER UNIT 10 UNITS in SYRINGE 9.9 ML IV ONE (21:00)
[2019-05-22] MEDS: DOXYCYCLINE HYCLATE 100 MG CAP PO SCH (21:19)
[2019-05-22] MEDS: METOPROLOL SUCC 50MG EXT REL TAB PO SCH (21:19)
[2019-05-23] MEDS: ACETAMINOPHEN 325 MG TAB PO PRN (00:52)
[2019-05-23] MEDS: INSULIN ASPART 100 UNITS/ML 3 ML PEN SC SCH ×2 (04:10→08:06)
[2019-05-23 07:24] LABS: Prothrombin Time 33.6 Seconds (9.0-12.0)
[2019-05-23 07:27] LABS: INR 3.6 (0.9-1.1)
[2019-05-23 07:41] LABS: BUN Creatinine Ratio 53.1 (10-20); Calcium 9.3 mg/dl (8.5-10.1); Creatinine Clr Calc Pharmacy 40.8 ml/min; Est GFR (African American) 41.4; Est GFR (Non-African American) 35.8; Potassium 3.6 mmol/L (3.5-5.1)
[2019-05-23] MEDS: ASPIRIN 81 MG ECTAB PO SCH (08:06)
[2019-05-23] MEDS: DOXYCYCLINE HYCLATE 100 MG CAP PO SCH (08:06)
[2019-05-23] MEDS: ATORVASTATIN 40 MG TAB PO SCH (08:07)
[2019-05-23] MEDS: METOPROLOL SUCC 50MG EXT REL TAB PO SCH (08:07)
[2019-05-23] MEDS: CYANOCOBALAMIN 500 MCG TABLET (VITAMIN B-12) PO SCH (08:07)
[2019-05-23] MEDS ORDERED: predniSONE 20 MG TAB PO SCH (09:00)
[2019-05-23] MEDS ORDERED: INSULIN GLARGINE SOLOSTAR 100 UNITS/ML 3 ML PEN SQ SCH (09:00)
[2019-05-23] MEDS ORDERED: NovoLIN-N (NPH) PER UNIT CHARGE SQ SCH (09:00)
[2019-05-23] MEDS ORDERED: INSULIN ASPART 100 UNITS/ML 3 ML PEN SC SCH (11:30)
--- NOTE | 2019-05-23 11:34 | Discharge Summary ---
Date of Service May 23, 2019 Admission HPI Per Admitting Provider History obtained from patient and records. Medical history significant for chronic diastolic heart failure EF 55 to 60%, TTE 07/2018, chronic respiratory failure secondary to cor pulmonale, COPD on home O2, NUVIA on CPAP, Hypertension, AFib on Coumadin, hx PVD status post surgery, DM2 insulin requiring on oral meds, ongoing tobacco abuse. Recent confinement last month for decompensated heart failure. 2 days history of junky cough symptoms, increasing shortness of breath, no chest pain. Sick family member. Denies fever chills, aspiration. Achy abdominal discomfort secondary to coughing. Poor appetite, some nausea, no emesis, good bowel movement. Usual leg pain. Weight has been stable at home as per patient between 227 to 237 pounds as per patient. Blood sugars noted to be high at home. Medical History as above Surgical History : Knee surgery, vascular procedure, MELINDA, tonsillectomy Family History : Colon cancer, diabetes, heart disease, thyroid problems Personal/Social history : Half pack daily, occasional EtOH intake Admission Exam Per Admitting Provider GENERAL: Comfortable, coughing episodes during encounter, obese, no respiratory distress SKIN: Normal color, warm HEENT: [place] palpebral conjunctivae, no ptosis, dry buccal mucosa NECK : Supple, short, no tenderness CHEST : Decreased breath sounds, expiratory wheezes, no tenderness HEART : Tachycardic, systolic murmur ABDOMEN: distention, left-sided abdominal tenderness EXTREMITIES : Bilateral LE swelling erythematous induration (chronic), minimal LE tenderness, no other conspicuous deformities noted NEUROLOGIC : Coherent, no facial asymmetry, no other gross focality Principal Diagnosis COPD Exac HALI Hyperglycemia Chronic CHF Pickwickian Discharge Exam ROS-No Headache, No Visual Changes, No Nausea, No Vomiting, No Fever, No Chills, No Neck Pain or Stiffness, No Chest Pain, No Palpitations, No SOB, No CRUZ, No Cough, No Sputum, No Wheezing, No Abdominal Pain, No Diarrhea, No Hematemesis, No Hemoptysis, No Unexpected Weight Loss, No Flank pain, No Melena, No Hematochezia, No Frequency, No Urgency, No Burning, No Hematuria, No Rashes, No Diaphoresis. Appetite is Normal Physical Exam Gen-AAO x 3, NAD, Afebrile Head-NCAT, EOMI, PERRLA, Anicteric Sclera, No Posterior Pharyngeal Erythema Neck-Supple, No JVD, No Thyromegaly, No Masses, No LAD, No Bruits Lungs-Clear to Auscultation Bilaterally, No Rales, No Rhonchi, Mild Wheezing, No Crepitus Chest-No S4, +S1, +S2, No S3, No Murmurs, No Rubs, No Gallops, No Ectopy Abdomen-Soft, Bowel Sounds Present, Non Tender, Non Distended, No Hepatomegaly, No Splenomegaly, No Palpable Masses, No Rebound, No Rigidity, No Guarding Musculoskeletal-Full Range of Motion Bilaterally, No CVAT Extremities-No Cyanosis, No Clubbing, No Edema Nuero-Cranial Nerves II-XII grossly intact, Motor WNL, DTRs WNL, Strength WNL, Non Focal Psych-Normal Mood Discharge Data Allergies Allergy/AdvReac Type Severity Reaction Status Date / Time Penicillins Allergy Mild Unknown Verified 05/21/19 22:57 rofecoxib Allergy Unknown Unknown Verified 05/21/19 22:57 sulindac Allergy Unknown Unknown Verified 05/21/19 22:57 Consultations 05/22/19 01:03 ED Decision to Admit Stat 05/22/19 03:45 Consult Nephrology Routine Ordered Studies 05/21/19 22:10 CT abd pelvis wo con Urgent Current Diagnoses Type 2 diabetes mellitus without complications (05/22/19) Hyperlipidemia, unspecified (05/22/19) Hypokalemia (05/22/19) Obstructive sleep apnea (adult) (pediatric) (05/22/19) Essential (primary) hypertension (05/22/19) Chronic atrial fibrillation (05/22/19) Heart failure, unspecified (05/22/19) Chronic obstructive pulmonary disease with (acute) exacerbation (05/22/19) Chronic respiratory failure with hypoxia (05/22/19) Acute kidney failure, unspecified (05/22/19) Encounter for administrative examinations, unspecified (05/22/19) Encounter for prophylactic measures, unspecified (05/22/19) Dependence on other enabling machines and devices (05/22/19) Allergies Penicillins Allergy (Mild, Verified 05/21/19 22:57) Unknown rofecoxib Allergy (Unknown, Verified 05/21/19 22:57) Unknown sulindac Allergy (Unknown, Verified 05/21/19 22:57) Unknown Height/Weight/Isolation Height 5 ft 1 in Weight 108.5 kg Chemistry 05/21/19 05/22/19 05/22/19 22:24 01:49 08:08 Sodium 130 L 129 L 135 L Potassium 2.9 L 2.7 L 3.8 D Chloride 84 L 87 L 94 L Carbon Dioxide 36 H 37 H 34 H Anion Gap 10.0 5.0 7.0 BUN 83 H 87 H 84 H Creatinine 2.55 H 2.24 H D 2.07 H Glucose 434 H* 383 H* 239 H 05/23/19 06:49 Sodium 136 Potassium 3.6 Chloride 98 Carbon Dioxide 30 Anion Gap 8.0 BUN 79 H Creatinine 1.48 H D Glucose 156 H Urinalysis 05/21/19 22:18 Urine Color Yellow Urine Appearance Clear Urine pH 5.0 Ur Specific [place] 1.015 Urine Protein Negative Urine Glucose (UA) 2+ H Urine Ketones Negative Urine Blood Negative Urine Nitrite Negative Urine Bilirubin Negative Hospital Course (1) COPD exacerbation: Symptoms improved. Continue prednisone, doxycycline, nebs on DC (2) Chronic respiratory failure with hypoxia: Continue supplemental oxygen on 2 L at home (3) NUVIA on CPAP: Continue CPAP while here. (4) Chronic atrial fibrillation: Rate controlled on metoprolol. Continue warfarin. (5) CHF (congestive heart failure): History of chronic left ventricular diastolic heart failure and right-sided heart failure. Diuretics on hold due to acute kidney injury. Resume at home F/U c Renal and PCP, BMP Tuesday (6) HTN (hypertension): Continue metoprolol. Diuretics restart at home (7) HALI (acute kidney injury): Resume Diuretics at home (8) Hypokalemia: Received replacement. (9) Diabetes mellitus, type II: Diabetes mellitus type 2, poorly controlled. Random blood sugar at time of admission was 434. Hgb A1C 10.9. On low-dose prednisone for COPD exacerbation. (10) Dyslipidemia: Continue atorvastatin. (11) DVT prophylaxis: On warfarin with therapeutic INR. Ambulate. (12) Discharge planning issues: Anticipated discharge to home today Family Medicine follow-up with Dr. Mathis. Total Time Total Time Spent Total Time Spent (In Minutes): 40 minutes Total Time Includes: Examination of the Patient, Discharge Planning, Medication Reconciliation and Communication With Other Providers Discharge Plan Discharge Items Patient Disposition: Home - Self-Care Reason For Visit: COPD EXACERBATION, ARF Discharge Diagnosis: COPD Exac HALI Hyperglycemia Chronic CHF Pickwickian Condition: Fair Discharge Goals: Decrease discomfort, Improve function and Increase independence Activity: Resume your previous activity Lifting: Gradually increase as tolerated Bathing: No limitations Sexual Activity: When tolerated Exercise/Sports: Gradually increase as tolerated Driving/Machine Use: No limitations Weightbearing: Left weightbearing and Right weightbearing Non-emergency contact: Primary Care Provider, Aquarium Specialist and Shotblast Operator Call non-emergency contact if: you have any medication questions and your symptoms worsen Follow-up/Referrals: Rosy Lawson MD, PhD [Physician] - (1-2 weeks) Edison Mathis MD [Primary Care Provider] - Diet: Carb Consistent or DM2 and Heart Healthy Addtl Provider Instructions: BMP Tuesday, F/ c Dr Mathis, Dr Reis or Ivonne Prescriptions: New doxycycline hyclate 100 mg Capsule 100 mg PO BID Qty: 20 RF: 0 metoprolol succinate 50 mg Tablet Extended Release 24 Hr 50 mg PO BID Qty: 60 RF: 0 nitroglycerin [Nitrostat] 0.4 mg Tablet, Sublingual 0.4 mg sublingual UD PRN (Reason: chest pain) Qty: 30 RF: 0 prednisone 20 mg Tablet 20 mg PO DAILY Qty: 5 RF: 0 potassium chloride 10 mEq capsule, extended release 10 meq PO BID Qty: 20 RF: 0 Continued atorvastatin 40 mg Tablet 2 tab PO QAM RF: 0 cyanocobalamin (vitamin B-12) [Vitamin B-12] 1,000 mcg Tablet 1,000 mcg PO QAM RF: 0 aspirin 81 mg Tablet,Delayed Release (Dr/Ec) 81 mg PO QAM RF: 0 nitroglycerin [Nitrostat] 0.4 mg Tablet, Sublingual 1 tab Sublingual DIRECTED PRN (Reason: Chest Pain) RF: 0 allopurinol 300 mg Tablet 300 mg PO QAM RF: 0 gabapentin 100 mg Capsule 300 mg PO HS RF: 0 cholecalciferol (vitamin D3) [Vitamin D3] 1,000 unit Capsule 2,000 unit PO QAM RF: 0 Lantus Solostar U-100 Insulin 100 unit/mL (3 mL) Insulin Pen 42 unit SUBCUT QAM RF: 0 warfarin [Coumadin] 3 mg Tablet 4.5 mg PO SUTUTH@2100 RF: 0 acetaminophen [Tylenol Extra Strength] 500 mg Tablet 1,000 mg PO UD RF: 0 spironolactone 25 mg tablet 12.5 mg PO DAILY RF: 0 warfarin 3 mg tablet 3 mg PO MOWEFRSA@2100 RF: 0 torsemide 20 mg tablet 40 mg PO BID Qty: 0 RF: 0 Discontinued metolazone 2.5 mg tablet 2.5 mg PO DAILY PRN (Reason: Edema) RF: 0 metoprolol succinate 50 mg tablet extended release 24 hr 50 mg PO BID RF: 0 tramadol 50 mg Tablet 50 mg PO Q6H PRN (Reason: Pain) RF: 0 potassium chloride 10 mEq tablet extended release 10 meq PO DAILY RF: 0 Stand-Alone Forms: [facility] Discharge Orders: Discharge Order (Routine); Ordered 05/23/19 Ordered By: Franky Pedraza Admission Data Admit Date/Time: 05/22/19 02:54 Attending Provider: Franky Pedraza Admit Provider: Jaylon Addison Primary Care Provider: Edison Mathis Other Providers: Jaylon Addison ; Rosy Lawson Service: Telemetry Medical
--- NOTE | 2019-05-23 11:45 | Nephrology Progress Note ---
Date of Service May 23, 2019 Assessment & Plan (1) HALI (acute kidney injury): Patient with HALI likely pre renal azotemia in setting of URTI, osmotic diuresis due to DM and lasix, UA was concentrated but no active sediment. BP is now acceptable. Agree with holding lasix today. Patient likely being discharged today. She can resume torsemide 40 mg twice daily home dose tomorrow. Patient should not take metolazone until reviewed by either PCP or cardiology. She will need a BMP either later in the week or early next week and follow-up with PCP. If renal function is not improving PCP can refer to nephrology. (2) Hypokalemia: Due to poor intake, diuretics at home and transcellular shifts with insulin. K3.6 today. Recommend increasing dose of potassium chloride to 10 mEq twice daily starting tomorrow when she starts diuretics. (3) Chronic respiratory failure with hypoxia: Due to COPD. Does not appear to be volume overload. Ok to hold lasix today. Restart tomorrow. Subjective Seen in follow-up for acute kidney injury. Breathing is at baseline. She is complaining of mild lower extremity swelling. No urinary symptoms. Blood sugars are better this morning. Creatinine down to 1.4. Patient eager to be discharged home. Review of Systems Review of Systems: All systems reviewed & are unremarkable except as noted in HPI & below Physical Exam Physical Exam: General exam: Obese female, appears comfortable on oxygen, no acute distress HEENT: Pupils are equal and reactive to light Neck: No JVD, neck is supple trachea is midline Respiratory system: Clear breath sounds bilaterally. Gastrointestinal: Abdomen is soft, non distended, non tender, bowel sounds are present CVS: Regular rate and rhythm. No murmurs, rubs or gallops Musculoskeletal: No joint or muscle tenderness Extremities: Non tender, 1+ edema, peripheral pulses are present Neuro: Oriented, no tremors, no focal neurological deficits Skin: No rashes Results & Data Vital Signs (Past 12 Hours) Vital Signs Temp Pulse Pulse Resp BP BP Pulse Ox 05/23/19 08:04 36.4 C L 99 H 20 118/82 95 05/23/19 04:30 36.3 C L 90 16 137/91 98 05/23/19 01:30 96 H Laboratory Results Laboratory Results - last 24 hr 05/22/19 05/22/19 05/22/19 11:20 11:22 16:31 PT INR Sodium Potassium Chloride Carbon Dioxide Anion Gap BUN Creatinine Est Cr Clr Drug Dosing Est GFR ( Amer) Est GFR (Non-Af Amer) BUN/Creatinine Ratio Glucose POC Glucose 400 H* 395 H* 336 H* Calcium 05/22/19 05/22/19 05/22/19 16:32 20:32 23:43 PT INR Sodium Potassium Chloride Carbon Dioxide Anion Gap BUN Creatinine Est Cr Clr Drug Dosing Est GFR ( Amer) Est GFR (Non-Af Amer) BUN/Creatinine Ratio Glucose POC Glucose 329 H* 365 H* 175 H Calcium 05/23/19 05/23/19 05/23/19 04:18 06:49 06:49 PT 33.6 H INR 3.6 H Sodium 136 Potassium 3.6 Chloride 98 Carbon Dioxide 30 Anion Gap 8.0 BUN 79 H Creatinine 1.48 H D Est Cr Clr Drug Dosing 40.8 Est GFR ( Amer) 41.4 Est GFR (Non-Af Amer) 35.8 BUN/Creatinine Ratio 53.1 H Glucose 156 H POC Glucose 74 Calcium 9.3 05/23/19 07:39 PT INR Sodium Potassium Chloride Carbon Dioxide Anion Gap BUN Creatinine Est Cr Clr Drug Dosing Est GFR ( Amer) Est GFR (Non-Af Amer) BUN/Creatinine Ratio Glucose POC Glucose 163 H Calcium
[2019-05-23] MEDS ORDERED: WARFARIN SOD 3 MG TAB PO SCH (16:00)
== END 2019-05-23 13:51 | disposition home health service (06) | DRG 191 ==
LOC: ED 22:01 → 2W 05-22 02:54 → SUATTDRO 05-22 02:54 → 2W 05-22 03:20

== ENCOUNTER 2019-10-22 17:55 | Inpatient (IN) ==
--- NOTE | 2019-10-22 18:36 | XRay Report ---
SINGLE VIEW CHEST CLINICAL HISTORY: Dyspnea. FINDINGS: An AP, portable, upright chest radiograph is compared to study dated 06/17/2019. The examina tion is degraded by portable technique and apical lordotic positioning. Heart is enlarged noting athe rosclerotic calcification of the thoracic aorta. There is mild pulmonary vascular congestion. There i s bibasilar atelectasis. No airspace consolidation or large pleural effusion is identified. No pneumo thorax is seen. The skeletal structures are osteopenic. The bony thorax is grossly intact. IMPRESSION: Cardiomegaly with evidence of mild congestive failure. Electronically signed by: Rusty Macias M.D. 10/22/2019 6:35 PM
[2019-10-22 19:36] LABS: Basophils # (auto) 0.03 K/uL (0-0.2); Basophils % (auto) 0.4 %; Eosinophils # (auto) 0.09 K/uL (0-0.5); Eosinophils % (auto) 1.1 %; Immature Granulocytes # (auto) 0.05 K/uL (0.00-0.02); Immature Granulocytes % (auto) 0.6 %; Lymphocytes # (auto) 1.37 K/uL (1.2-3.4); Lymphocytes % (auto) 16.6 %; Mean Corpuscular Hemoglobin 29.8 pg (25-34); Mean Corpuscular Volume 96.3 fL (80-100); Mean Platelet Volume 10.5 fL (7.4-10.4); Neutrophils # (auto) 6.23 K/uL (1.4-6.5); Neutrophils % (auto) 75.3 %; Platelet Count 154 K/uL (130-400); RDW Coefficient of Variation 15.5 % (11.5-14.5); Red Blood Count 4.36 M/uL (4.2-5.4); White Blood Count 8.27 K/uL (4.8-10.8)
[2019-10-22 19:59] LABS: Albumin Globulin Ratio 0.9 (0.9-2); Albumin Level 3.2 gm/dl (3.4-5.0); BUN Creatinine Ratio 27.2 (10-20); Bilirubin,Total 0.4 mg/dl (0.2-1); Creatinine Clr Calc Pharmacy 56.6 ml/min; Est GFR (African American) 56.2; Est GFR (Non-African American) 48.5; Globulin 3.4 gm/dl (2.5-4.0); Magnesium 1.9 mg/dl (1.8-2.4); Potassium 3.4 mmol/L (3.5-5.1); Total Protein 6.6 gm/dl (6.4-8.2); Troponin I 0.016 ng/ml (0-0.045)
[2019-10-22 20:05] LABS: INR 2.3 (0.9-1.1); Partial Thromboplastin Ratio 1.1; Partial Thromboplastin Time 30.6 Seconds (21.0-31.0); Prothrombin Time 22.3 Seconds (9.0-12.0)
[2019-10-22] MEDS ORDERED: FUROSEMIDE 40 MG/4 ML VIAL IV STA (20:39)
[2019-10-22] MEDS ORDERED: NITROGLYCERIN 2% OINTMENT 30GM TUBE EXT STA (20:40)
[2019-10-22 20:58] LABS: Beta-Hydroxybutyrate 0.56 mg/dl (0.2-2.81)
[2019-10-22] MEDS ORDERED: NovoLIN-R INSULIN PER UNIT CHARGE IV STA (21:26)
--- NOTE | 2019-10-22 21:29 | History & Physical Report ---
Date of Service October 22, 2019 Assessment & Plan (1) Acute on chronic diastolic CHF (congestive heart failure): This is a 68yo F with a PMH of R sided heart failure, cor pulmonale, COPD, chronic respiratory failure on 2L NC O2, DM II, HTN, chronic A Fib on anticoagulation, PVD with recent RFA of right greater saphenous vein by Dr. Holder on 04/06/19, venous ulcers, NUVIA on CPAP, tobacco use and other medical problems listed below who presents with dyspnea on exertion and chest discomfort and was found to have acute on chronic CHF and hyperglycemia. -Per outpatient notes, patient has gained 10 pounds since October 16 with associated shortness of breath and worsening bilateral lower extremity edema -Recently had torsemide dose increased from 40 twice daily to 60 twice daily due to noted weight gain. Was also instructed to take metolazone 2.5 mg this morning prior to torsemide dose -Chest x-ray with cardiomegaly and evidence of mild congestive failure. BNP elevated at 2624. Initial troponin negative -Given 60 mg IV Lasix in ED -Reassess volume status in a.m. to determine continued dose of diuretics -Is at respiratory baseline on 2 L nasal cannula O2 -Strict intake and output, daily weight, low-sodium diet (2) Acute hyperglycemia: (3) Diabetes mellitus, type II: Initial serum blood sugar 375 -Given 10 units of IV regular insulin -Home regimen includes 50mg Latus qAM -Glycemic management per pharmacy (4) Chest pain: Presented with central chest discomfort that has since resolved -Given ntg 0.5" paste in ED -EKG without acute changes -Initial troponin negative. Continue trending. Monitor on telmetry (5) Chronic atrial fibrillation: EKG with atrial fibrillation at 97 bpm -Continue Toprol twice daily -Continue Coumadin for anticoagulation -INR therapeutic at 2.3 (6) Chronic respiratory failure with hypoxia: Currently at respiratory baseline with oxygen saturation of 94% on 2 L nasal cannula O2 (7) Chronic venous insufficiency: Chronic venous insufficiency changes noted on bilateral lower extremity. No evidence of cellulitis at this time -Continue to monitor closely (8) NUVIA on CPAP: CPAP at bedtime DVT Ppx: coumadin Code status: FULL PCP: Del Dispo: Admitted to [facility]. Discharge planning, PT and OT ordered. Patient seen in collaboration with Dr. Pedraza. Please see addendum. History of Present Illness Chief Complaint: Shortness of breath, chest discomfort, hyperglycemia Primary Care Provider: Edison Mathis MD This is a 68yo F with a PMH of R sided heart failure, cor pulmonale, COPD, chronic respiratory failure on 2L NC O2, DM II, HTN, chronic A Fib on anticoagulation, PVD with recent RFA of right greater saphenous vein by Dr. Holder on 04/06/19, venous ulcers, NUVIA on CPAP, tobacco use and other medical problems listed below who presents with dyspnea on exertion and chest discomfort. Patient states she is noted swelling in her lower legs as well as weight gain over the past week. Per home health records, patient has gained approximately 10 pounds since October 16 with associated increased shortness of breath and lower extremity edema. Was instructed to take metolazone 2.5 mg today as well as recently torsemide dose of 60 mg twice daily, which was increased earlier this week. On patient began to experience some chest discomfort this afternoon, her niece brought her in for further evaluation. States that chest pain feels fluttery and has resolved since being given Nitropaste in the ED. Is on Coumadin for atrial fibrillation and INR is therapeutic at 2.3. Patient found to be afebrile and hemodynamically stable. Slightly tachycardic at 105. Oxygen saturation of 94% on 2 L (at baseline). Initial [id number] glucose of 428 with serum glucose of 375. BNP elevated at 2624. Initial troponin negative. EKG with atrial fibrillation at 97 bpm. No significant changes noted from previous EKGs. Chest x-ray with cardiomegaly and evidence of mild congestive failure. Allergies Allergy/AdvReac Type Severity Reaction Status Date / Time Penicillins Allergy Mild Unknown Verified 10/22/19 18:27 rofecoxib Allergy Unknown Unknown Verified 10/22/19 18:27 sulindac Allergy Unknown Unknown Verified 10/22/19 18:27 Home Medications Home Medications Medication Instructions Recorded Confirmed Type Lantus Solostar U-100 Insulin 50 unit SUBCUT QAM 08/11/18 10/22/19 History allopurinol 300 mg PO QAM 08/11/18 10/22/19 History aspirin 81 mg PO QAM 08/11/18 10/22/19 History atorvastatin 2 tab PO QAM 08/11/18 10/22/19 History cholecalciferol (vitamin D3) 2,000 unit PO QAM 08/11/18 10/22/19 History [Vitamin D3] cyanocobalamin (vitamin B-12) 1,000 mcg PO QAM 08/11/18 10/22/19 History [Vitamin B-12] gabapentin 300 mg PO HS 08/11/18 10/22/19 History nitroglycerin [Nitrostat] 1 tab SUBLINGUAL DIRECTED PRN 08/11/18 10/22/19 History warfarin [Coumadin] 4.5 mg PO SUTUTH@1600 08/11/18 10/22/19 History acetaminophen [Tylenol Extra 1,000 mg PO UD PRN 01/08/19 10/22/19 History Strength] spironolactone 12.5 mg PO DAILY 01/08/19 10/22/19 History warfarin [Coumadin] 3 mg PO MOWEFRSA@1600 04/24/19 10/22/19 History metoprolol succinate 50 mg PO BID #60 tab 05/23/19 10/22/19 Rx metolazone 2.5 mg PO DIRECTED PRN 06/17/19 10/22/19 History tramadol 50 mg PO Q8H PRN 06/17/19 10/22/19 History gabapentin 100 mg PO BID 10/22/19 10/22/19 History potassium chloride 10 meq PO DAILY 10/22/19 10/22/19 History torsemide 60 mg PO BID 10/22/19 10/22/19 History Past Med/Surg History Medical History Anemia (Chronic 11/27/13) Chronic atrial fibrillation (Chronic) Chronic respiratory failure with hypoxia (Chronic) Diabetes mellitus, type II (Chronic) Dyslipidemia (Chronic) HTN (hypertension) (Chronic) Hypocalcemia (Chronic) Hypomagnesemia (Chronic) Lumbar radiculopathy (Chronic) NUVIA on CPAP (Chronic) Pickwickian syndrome (Chronic) Polymyalgia rheumatica (Chronic) Right-sided heart failure (Chronic) Tobacco use disorder (Chronic) Surgical History History of hysterectomy (Resolved) History of total knee replacement (Resolved) Family History Father Heart disease Stroke Mother Diabetes Social History Preferred Language: Surinamese Communication Ability: Effective Field Inspector Required: No Beliefs That Will Affect Care: None marital status: / Current Living Situation: Alone Feels Safe at Home: Yes Smoking Status: Current every day smoker Tobacco Type: cigarettes ; Cigarettes Per Day: less then 10 ; Second Hand Exposure: No ; Hx Alcohol Use: No Hx Substance Use: No Review of Systems Review of Systems: At least ten systems reviewed and negative except as noted in the HPI. Physical Exam Physical Exam: General Appearance: WD/WN, no apparent distress, morbidly obese, becomes SOB when speaking Head: normocephalic, atraumatic Eyes: normal inspection, PERRL, EOMI ENT: hearing grossly normal, pharynx normal (moist mucous membranes) Neck: supple, no JVD, no adenopathy Respiratory/Chest: Decreased breath sounds bilaterally with fine bibasilar crackles. No rhonci observed. No respiratory distress or accessory muscle use. Cardiovascular: irregular rate & rhythm, no murmur appreciated, normal peripheral pulses, 3+ BLE edema Abdomen/GI: normal bowel sounds, soft, non-tender to palpation Extremities/Musculoskelatal: normal inspection, no calf tenderness, normal capillary refill Neurologic/Psych: alert, normal mood/affect, oriented x 3 Skin: normal color, warm/dry. Hyperpigmentation of BLE 2/2 chronic venous stasis with some weeping Results & Data Vital Signs (Past 12 Hours) Vital Signs Temp Pulse Pulse Resp BP BP Pulse Ox 10/22/19 20:52 105 H 24 129/95 94 10/22/19 19:30 96 H 26 H 95 10/22/19 19:12 103 H 29 H 94 10/22/19 19:00 105 H 29 H 94 10/22/19 18:30 103 H 14 92 10/22/19 18:13 112 H 32 H 88 L 10/22/19 18:09 36.7 C 99 H 22 142/93 H 90 10/22/19 18:01 98 H 15 142/93 H 91 Laboratory Results Short CBC 10/22/19 10/22/19 10/22/19 Range/Units 18:05 19:08 19:08 WBC 8.27 (4.8-10.8) K/uL RBC 4.36 (4.2-5.4) M/uL Hgb 13.0 (12.0-16.0) g/dL Hct 42.0 (37-47) % MCV 96.3 (80-100) fL MCH 29.8 (25-34) pg MCHC 31.0 L (32-36) g/dL RDW Std Deviation 54.0 H (36.4-46.3) fL RDW Coeff of Patrick 15.5 H (11.5-14.5) % Plt Count 154 (130-400) K/uL MPV 10.5 H (7.4-10.4) fL Immature Gran % (Auto) 0.6 % Neut % (Auto) 75.3 % Lymph % (Auto) 16.6 % [place] % (Auto) 6.0 % Eos % (Auto) 1.1 % Baso % (Auto) 0.4 % Immature Gran # (Auto) 0.05 H (0.00-0.02) K/uL Neut # (Auto) 6.23 (1.4-6.5) K/uL Lymph # (Auto) 1.37 (1.2-3.4) K/uL [place] # (Auto) 0.50 (0.11-0.59) K/uL Eos # (Auto) 0.09 (0-0.5) K/uL Baso # (Auto) 0.03 (0-0.2) K/uL PT (9.0-12.0) Seconds INR (0.9-1.1) APTT (21.0-31.0) Seconds PTT Ratio Sodium 139 (136-145) mmol/L Potassium 3.4 L (3.5-5.1) mmol/L Chloride 100 (98-107) mmol/L Carbon Dioxide 34 H (21-32) mmol/L Anion Gap 5.0 (3-11) BUN 31 H (7-18) mg/dl Creatinine 1.15 (0.6-1.2) mg/dl Est Cr Clr Drug Dosing 56.6 ml/min Est GFR ( Amer) 56.2 Est GFR (Non-Af Amer) 48.5 BUN/Creatinine Ratio 27.2 H (10-20) Glucose 375 H* (70-99) mg/dl POC Glucose 428 H* (70-99) Calcium 9.0 (8.5-10.1) mg/dl Magnesium 1.9 (1.8-2.4) mg/dl Total Bilirubin 0.4 (0.2-1) mg/dl AST 7 L (15-37) U/L ALT 16 (12-78) U/L Alkaline Phosphatase 123 H (45-117) U/L Troponin I 0.016 (0-0.045) ng/ml NT-Pro-B Natriuret Pep 2624 H (0-900) pg/ml Total Protein 6.6 (6.4-8.2) gm/dl Albumin 3.2 L (3.4-5.0) gm/dl Globulin 3.4 (2.5-4.0) gm/dl Albumin/Globulin Ratio 0.9 (0.9-2) Beta-Hydroxybutyric Acd 0.56 (0.2-2.81) mg/dl 10/22/19 Range/Units 19:08 WBC (4.8-10.8) K/uL RBC (4.2-5.4) M/uL Hgb (12.0-16.0) g/dL Hct (37-47) % MCV (80-100) fL MCH (25-34) pg MCHC (32-36) g/dL RDW Std Deviation (36.4-46.3) fL RDW Coeff of Patrick (11.5-14.5) % Plt Count (130-400) K/uL MPV (7.4-10.4) fL Immature Gran % (Auto) % Neut % (Auto) % Lymph % (Auto) % [place] % (Auto) % Eos % (Auto) % Baso % (Auto) % Immature Gran # (Auto) (0.00-0.02) K/uL Neut # (Auto) (1.4-6.5) K/uL Lymph # (Auto) (1.2-3.4) K/uL [place] # (Auto) (0.11-0.59) K/uL Eos # (Auto) (0-0.5) K/uL Baso # (Auto) (0-0.2) K/uL PT 22.3 H (9.0-12.0) Seconds INR 2.3 H (0.9-1.1) APTT 30.6 (21.0-31.0) Seconds PTT Ratio 1.1 Sodium (136-145) mmol/L Potassium (3.5-5.1) mmol/L Chloride (98-107) mmol/L Carbon Dioxide (21-32) mmol/L Anion Gap (3-11) BUN (7-18) mg/dl Creatinine (0.6-1.2) mg/dl Est Cr Clr Drug Dosing ml/min Est GFR ( Amer) Est GFR (Non-Af Amer) BUN/Creatinine Ratio (10-20) Glucose (70-99) mg/dl POC Glucose (70-99) Calcium (8.5-10.1) mg/dl Magnesium (1.8-2.4) mg/dl Total Bilirubin (0.2-1) mg/dl AST (15-37) U/L ALT (12-78) U/L Alkaline Phosphatase (45-117) U/L Troponin I (0-0.045) ng/ml NT-Pro-B Natriuret Pep (0-900) pg/ml Total Protein (6.4-8.2) gm/dl Albumin (3.4-5.0) gm/dl Globulin (2.5-4.0) gm/dl Albumin/Globulin Ratio (0.9-2) Beta-Hydroxybutyric Acd (0.2-2.81) mg/dl BMP 10/22/19 19:08 Sodium 139 Potassium 3.4 L Chloride 100 Carbon Dioxide 34 H BUN 31 H Creatinine 1.15 Glucose 375 H* Calcium 9.0 Cardiac Enzymes 10/22/19 Range/Units 19:08 Troponin I 0.016 (0-0.045) ng/ml Liver Function 10/22/19 Range/Units 19:08 Total Bilirubin 0.4 (0.2-1) mg/dl AST 7 L (15-37) U/L ALT 16 (12-78) U/L Alkaline Phosphatase 123 H (45-117) U/L Albumin 3.2 L (3.4-5.0) gm/dl Diagnostic Findings CXR: IMPRESSION: Cardiomegaly with evidence of mild congestive failure. ECG Rhythm: atrial fibrillation Findings: + nonspecific-ST abn Change: no significant change Code Status & VTE Plan VTE Prophylaxis Plan VTE Prophylaxis will be ordered: Yes Supervising Physician Co-Signing Physician Notes ROS-No Headache, No Visual Changes, No Nausea, No Vomiting, No Fever, No Chills, No Neck Pain or Stiffness, + Chest Pain, No Palpitations, + SOB, No CRUZ, No Cough, No Sputum, No Wheezing, No Abdominal Pain, No Diarrhea, No Hematemesis, No Hemoptysis, No Unexpected Weight Loss, No Flank pain, No Melena, No Hematochezia, No Frequency, No Urgency, No Burning, No Hematuria, No Rashes, No Diaphoresis. Appetite is Normal, +weight gain, + LE edema and blistering Physical Exam Gen-AAO x 3, NAD, Afebrile Head-NCAT, EOMI, PERRLA, Anicteric Sclera, No Posterior Pharyngeal Erythema Neck-Supple, No JVD, No Thyromegaly, No Masses, No LAD, No Bruits Lungs-Clear to Auscultation Bilaterally, No Rales, No Rhonchi, No Wheezing, No Crepitus Chest-No S4, +S1, +S2, No S3, No Murmurs, No Rubs, No Gallops, No Ectopy Abdomen-Soft, Bowel Sounds Present, Non Tender, Non Distended, No Hepatomegaly, No Splenomegaly, No Palpable Masses, No Rebound, No Rigidity, No Guarding Musculoskeletal-Full Range of Motion Bilaterally, No CVAT Extremities-No Cyanosis, No Clubbing, + B/L LE Edema, c Chronic stasis changes and erythema Nuero-Cranial Nerves II-XII grossly intact, Motor WNL, DTRs WNL, Strength WNL, Non Focal Psych-Normal Mood (1) Diabetes mellitus, type II Diabetes mellitus complication detail: with chronic kidney disease Diabetes mellitus complication status: with kidney complications Diabetes mellitus shelter insulin use: unspecified terminal system operator insulin use status
[2019-10-22] MEDS ORDERED: WARFARIN SOD 3 MG TAB PO SCH (21:35)
[2019-10-22] MEDS ORDERED: POTASSIUM CHLORIDE 20 MEQ TABCR PO STA (22:05)
[2019-10-22] MEDS ORDERED: TRAMADOL HCL 50 MG TABLET PO PRN (22:46)
[2019-10-22] MEDS ORDERED: ONDANSETRON INJ 2 MG/ML 2 ML VIAL IV PRN (22:46)
[2019-10-22] MEDS ORDERED: DEXTROSE 50% 50 ML SYRINGE IV PRN (22:46)
[2019-10-22] MEDS ORDERED: GLUCOSE 40% GEL 15 GM TUBE PO PRN (22:46)
[2019-10-22] MEDS ORDERED: CARBOHYDRATES FOR HYPOGLYCEMIA PO PRN (22:46)
[2019-10-22] MEDS ORDERED: GLUCOSE 10 TABS/TUBE PO PRN (22:46)
[2019-10-22] MEDS ORDERED: NITROGLYCERIN SL 0.4 MG/TAB TAB SL PRN (22:46)
[2019-10-22] MEDS ORDERED: GLUCAGON FOR INJ 1 MG VIAL SQ PRN (22:46)
[2019-10-22] MEDS ORDERED: ACETAMINOPHEN 325 MG TAB PO PRN (22:46)
[2019-10-22] MEDS ORDERED: PHARMACY GLYCEMIC MGMT CONSULT PRN (22:59)
[2019-10-22] MEDS: GABAPENTIN 100 MG CAP PO SCH (23:20)
[2019-10-22] MEDS: METOPROLOL SUCC 50MG EXT REL TAB PO SCH (23:21)
[2019-10-22] MEDS: INSULIN ASPART 100 UNITS/ML 3 ML PEN SC SCH (23:24)
--- NOTE | 2019-10-23 00:45 | Emergency Department Note ---
Entered by Berry Michelle acting as a scribe for Liam Stewart MD ED Provider Note CHIEF COMPLAINT: Shortness of breath HISTORY OF PRESENT ILLNESS: The patient is a 68 year old female who presents to the Emergency Room with complaints of worsening shortness of breath beginning four days ago. The patient states she has had bilateral leg swelling and chest pain as well over the past four days. She reports she called Home health this evening and was told not to go to the hospital. The patient notes her daughter visited her today and did not like the way she looked because she was breathing normally. She states her daugh ter then called the PCP and was told to bring her into the ED. The patient reports she does not have a PulseOx reader at home and does not have a nebulizer or inhaler. She notes she has a dry cough, and this is baseline for her history of COPD. She reports she is only on 2L for her COPD. The patient states her kinesiology internship, Dr. Jackson, says she does not have COPD, and it is caused by her decrease function of the right side of her heart. She reports she was evaluated by her PCP last week and had her fluid pills increased, but she is still having trouble with her leg swelling. She also reports a history of a-fib. Pt denies LOC, headache, fevers, chills, diaphoresis, visual changes, neck pain, nausea, vomiting, abdominal pain, back pain, melena, hematochezia, urinary symptoms, numbness, weakness, lymphadenopathy, rash, or other complaints. She also denies a history of anemia or blood transfusions. REVIEW OF SYSTEMS: See HPI for pertinent positives and negatives. A total of ten systems were reviewed and were otherwise negative. PMHx/PSHx: CHF, COPD, HALI, DMII, HTN, right sided heart failure, hysterectomy SOCIAL HISTORY: Patient lives at home. PHYSICAL EXAM: GENERAL: Awake, alert, dyspneic-appearing, in no distress HENT: Normocephalic, atraumatic. Oropharynx unremarkable. EYES: PERRL. Normal conjunctiva. Sclera non-icteric. NECK: Inspection normal. Non-tender. Supple. No nuchal rigidity. FROM. No masses. RESPIRATORY: Increased work of breathing with poor air movement. No wheezes. No rales. CARDIAC: Normal rate. Normal rhythm. No murmurs. No rubs. Extremities warm and well perfused. Pulses equal. No JVD. GI: Soft, non-distended. No tenderness to palpation. No rebound or guarding. No masses. RECTAL: Deferred. MUSCULOSKELETAL: Atraumatic. Chest examination reveals no tenderness. The back is symmetrical on inspection without obvious abnormality. There is no CVA tenderness to palpation. No joint edema. LOWER EXTREMITIES: Calves are non-tender. 3+ bilateral pitting edema. No discoloration. NEURO: Normal sensorium. No sensory or motor deficits noted. SKIN: No rash or jaundice noted. EMERGENCY DEPARTMENT COURSE: 1816: The patient was evaluated in room C03, and a complete history and physical examination were performed. 2038: Upon reevaluation, the patient is resting comfortably. I ordered the patient Lasix and nitro paste. I discussed laboratory and radiographic results with her and her daughter. They verbalized agreement of the treatment plan. The patient will be evaluated for further management and care. 2055: I reviewed the patient's case with Dr. Addison. He will evaluate the patient for further management. MEDICAL DECISION MAKING: Prior records/ancillary studies reviewed. Triage Nursing notes reviewed and agree them. Additional history obtained from the family. The patient's history was concerning for shortness of breath. Differential diagnosis: Etiologies such as pneumonia, COPD, reactive airway disease, CHF, cardiac ischemia, pulmonary embolism, pneumothorax, musculoskeletal, infections, gastroi ntestinal, as well as others were entertained. Physical examination: Patient had increased work of breathing. She was requiring 3 to 4 L of nasal cannula oxygen to maintain her saturations. She is normally on 2 L. ER treatment provided: Supplemental oxygen IV Lasix 60 mg Nitropaste 0.5 inch On reassessment the patient felt better. Diagnostic interpretation by me: The electrocardiogram was significant for A. fib with RVR. The labs revealed an unremarkable CBC and chemistry panel except for hyperglycemia. Troponin negative. BNP significantly elevated concerning for CHF. INR therapeutic. Imaging studies: Chest x-ray cardiomegaly with congestive change present. The patient is on multiple diuretics at home. Doses have been increased recently as last week and she is still having breathing issues. Her blood pressure is elevated. She was given IV Lasix and Nitropaste. Further m anagement in the hospital was deemed appropriate. Consultation: A consultation was placed with the hospitalist. The case was discussed and diagnostics were reviewed. The patient was evaluated in the ER for further treatment. IMPRESSION: SOB CHF A-fib with RVR PLAN: Admitted The scribe's documentation has been prepared under my direction and personally reviewed by me in its entirety. I confirm that the note above accurately reflects all work, treatment, procedures, and medical decision making performed by me. Impression & Plan SOB (shortness of breath), CHF (congestive heart failure), Atrial fibrillation with RVR Past Med/Surg History Medical History Anemia (Chronic 11/27/13) Chronic atrial fibrillation (Chronic) Chronic respiratory failure with hypoxia (Chronic) Diabetes mellitus, type II (Chronic) Dyslipidemia (Chronic) HTN (hypertension) (Chronic) Hypocalcemia (Chronic) Hypomagnesemia (Chronic) Lumbar radiculopathy (Chronic) NUVIA on CPAP (Chronic) Pickwickian syndrome (Chronic) Polymyalgia rheumatica (Chronic) Right-sided heart failure (Chronic) Tobacco use disorder (Chronic) Surgical History History of hysterectomy (Resolved) History of total knee replacement (Resolved) Family History Father Heart disease Stroke Mother Diabetes Social History Preferred Language: Greek Communication Ability: Effective 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 Beliefs That Will Affect Care: None marital status: / Current Living Situation: Alone Other Information That Helps Us Care for You: No Feels Safe at Home: Yes Safety Concerns: Feels Safe At This Time Smoking Status: Current some day smoker Tobacco Type: cigarettes ; Cigarettes Per Day: less then 10 ; Do You Dip or Chew Tobacco: No ; Second Hand Exposure: No ; Tobacco Cessation Education Requested by Patient: No Hx Alcohol Use: No Hx Substance Use: No Results & Data Vital Signs Vital Signs - 24 hr 10/22/19 18:01 10/22/19 18:09 10/22/19 18:13 Temperature 36.7 C Temperature Source Oral Pulse Rate 98 H 99 H 112 H Pulse Rate [Right Finger] Pulse Rate from SpO2 Sensor Respiratory Rate 15 22 32 H Blood Pressure 142/93 H 142/93 H Blood Pressure [Right Arm] Blood Pressure Mean 117 109 Blood Pressure Mean [Right Arm] Blood Pressure Position Sitting Pulse Oximetry 91 90 88 L Oxygen Delivery Method Nasal Cannula Oxygen Flow Rate Sepsis Recent Fever Within 48 Hours No Sepsis New/Unexplained Change in Mental Status No Sepsis Action Taken by Nursing No Action Required 10/22/19 18:30 10/22/19 19:00 10/22/19 19:12 Temperature Temperature Source Pulse Rate 103 H 105 H 103 H Pulse Rate [Right Finger] Pulse Rate from SpO2 Sensor Respiratory Rate 14 29 H 29 H Blood Pressure Blood Pressure [Right Arm] Blood Pressure Mean Blood Pressure Mean [Right Arm] Blood Pressure Position Pulse Oximetry 92 94 94 Oxygen Delivery Method Oxygen Flow Rate Sepsis Recent Fever Within 48 Hours Sepsis New/Unexplained Change in Mental Status Sepsis Action Taken by Nursing 10/22/19 19:30 10/22/19 20:00 10/22/19 20:18 Temperature Temperature Source Pulse Rate 96 H 106 H 100 H Pulse Rate [Right Finger] Pulse Rate from SpO2 Sensor 105 H 98 H Respiratory Rate 26 H 25 H 22 Blood Pressure 138/81 Blood Pressure [Right Arm] Blood Pressure Mean 87 Blood Pressure Mean [Right Arm] Blood Pressure Position Pulse Oximetry 95 95 94 Oxygen Delivery Method Oxygen Flow Rate Sepsis Recent Fever Within 48 Hours Sepsis New/Unexplained Change in Mental Status Sepsis Action Taken by Nursing 10/22/19 20:30 10/22/19 20:31 10/22/19 20:52 Temperature Temperature Source Pulse Rate 95 H 92 H 110 H Pulse Rate [Right Finger] 105 H Pulse Rate from SpO2 Sensor 104 H 91 H Respiratory Rate 28 H 29 H 24 Blood Pressure 140/95 129/95 Blood Pressure [Right Arm] 129/95 Blood Pressure Mean 108 102 Blood Pressure Mean [Right Arm] 106 Blood Pressure Position Pulse Oximetry 94 94 95 Oxygen Delivery Method Nasal Cannula Oxygen Flow Rate 2 Sepsis Recent Fever Within 48 Hours Sepsis New/Unexplained Change in Mental Status Sepsis Action Taken by Nursing 10/22/19 21:00 10/22/19 21:01 Temperature Temperature Source Pulse Rate 109 H 102 H Pulse Rate [Right Finger] Pulse Rate from SpO2 Sensor Respiratory Rate 17 25 H Blood Pressure 143/129 H Blood Pressure [Right Arm] Blood Pressure Mean 139 Blood Pressure Mean [Right Arm] Blood Pressure Position Pulse Oximetry 95 96 Oxygen Delivery Method Oxygen Flow Rate Sepsis Recent Fever Within 48 Hours Sepsis New/Unexplained Change in Mental Status Sepsis Action Taken by Long-Term Medications Current Medication List: was personally reviewed by me Laboratory Data Attestation: I reviewed the patient's lab results. Result diagrams: 10/22/19 19:08 10/22/19 19:08 Lab Results 10/22/19 10/22/19 10/22/19 Range/Units 18:05 19:08 19:08 WBC 8.27 (4.8-10.8) K/uL RBC 4.36 (4.2-5.4) M/uL Hgb 13.0 (12.0-16.0) g/dL Hct 42.0 (37-47) % MCV 96.3 (80-100) fL MCH 29.8 (25-34) pg MCHC 31.0 L (32-36) g/dL RDW Std Deviation 54.0 H (36.4-46.3) fL RDW Coeff of Patrick 15.5 H (11.5-14.5) % Plt Count 154 (130-400) K/uL MPV 10.5 H (7.4-10.4) fL Immature Gran % (Auto) 0.6 % Neut % (Auto) 75.3 % Lymph % (Auto) 16.6 % Mills % (Auto) 6.0 % Eos % (Auto) 1.1 % Baso % (Auto) 0.4 % Immature Gran # (Auto) 0.05 H (0.00-0.02) K/uL Neut # (Auto) 6.23 (1.4-6.5) K/uL Lymph # (Auto) 1.37 (1.2-3.4) K/uL Mills # (Auto) 0.50 (0.11-0.59) K/uL Eos # (Auto) 0.09 (0-0.5) K/uL Baso # (Auto) 0.03 (0-0.2) K/uL PT (9.0-12.0) Seconds INR (0.9-1.1) APTT (21.0-31.0) Seconds PTT Ratio Sodium 139 (136-145) mmol/L Potassium 3.4 L (3.5-5.1) mmol/L Chloride 100 (98-107) mmol/L Carbon Dioxide 34 H (21-32) mmol/L Anion Gap 5.0 (3-11) BUN 31 H (7-18) mg/dl Creatinine 1.15 (0.6-1.2) mg/dl Est Cr Clr Drug Dosing 56.6 ml/min Est GFR ( Amer) 56.2 Est GFR (Non-Af Amer) 48.5 BUN/Creatinine Ratio 27.2 H (10-20) Glucose 375 H* (70-99) mg/dl POC Glucose 428 H* (70-99) Calcium 9.0 (8.5-10.1) mg/dl Magnesium 1.9 (1.8-2.4) mg/dl Total Bilirubin 0.4 (0.2-1) mg/dl AST 7 L (15-37) U/L ALT 16 (12-78) U/L Alkaline Phosphatase 123 H (45-117) U/L Troponin I 0.016 (0-0.045) ng/ml NT-Pro-B Natriuret Pep 2624 H (0-900) pg/ml Total Protein 6.6 (6.4-8.2) gm/dl Albumin 3.2 L (3.4-5.0) gm/dl Globulin 3.4 (2.5-4.0) gm/dl Albumin/Globulin Ratio 0.9 (0.9-2) Beta-Hydroxybutyric Acd 0.56 (0.2-2.81) mg/dl 10/22/19 Range/Units 19:08 WBC (4.8-10.8) K/uL RBC (4.2-5.4) M/uL Hgb (12.0-16.0) g/dL Hct (37-47) % MCV (80-100) fL MCH (25-34) pg MCHC (32-36) g/dL RDW Std Deviation (36.4-46.3) fL RDW Coeff of Patrick (11.5-14.5) % Plt Count (130-400) K/uL MPV (7.4-10.4) fL Immature Gran % (Auto) % Neut % (Auto) % Lymph % (Auto) % Mills % (Auto) % Eos % (Auto) % Baso % (Auto) % Immature Gran # (Auto) (0.00-0.02) K/uL Neut # (Auto) (1.4-6.5) K/uL Lymph # (Auto) (1.2-3.4) K/uL Mills # (Auto) (0.11-0.59) K/uL Eos # (Auto) (0-0.5) K/uL Baso # (Auto) (0-0.2) K/uL PT 22.3 H (9.0-12.0) Seconds INR 2.3 H (0.9-1.1) APTT 30.6 (21.0-31.0) Seconds PTT Ratio 1.1 Sodium (136-145) mmol/L Potassium (3.5-5.1) mmol/L Chloride (98-107) mmol/L Carbon Dioxide (21-32) mmol/L Anion Gap (3-11) BUN (7-18) mg/dl Creatinine (0.6-1.2) mg/dl Est Cr Clr Drug Dosing ml/min Est GFR ( Amer) Est GFR (Non-Af Amer) BUN/Creatinine Ratio (10-20) Glucose (70-99) mg/dl POC Glucose (70-99) Calcium (8.5-10.1) mg/dl Magnesium (1.8-2.4) mg/dl Total Bilirubin (0.2-1) mg/dl AST (15-37) U/L ALT (12-78) U/L Alkaline Phosphatase (45-117) U/L Troponin I (0-0.045) ng/ml NT-Pro-B Natriuret Pep (0-900) pg/ml Total Protein (6.4-8.2) gm/dl Albumin (3.4-5.0) gm/dl Globulin (2.5-4.0) gm/dl Albumin/Globulin Ratio (0.9-2) Beta-Hydroxybutyric Acd (0.2-2.81) mg/dl Administered Medications Gabapentin (Neurontin) 300 mg PO HS [facility] Stop: 11/21/19 21:34 Last Admin: 10/22/19 23:20 Dose: 300 mg Documented by: [id number] Insulin Aspart (Novolog Flexpen) 0 units SC ACHS [facility] Stop: 11/21/19 23:14 Last Admin: 10/22/19 23:24 Dose: 3 units Documented by: [id number] Cosigned by: [id number] Metoprolol Succinate (Toprol Xl) 50 mg PO BID [facility] Stop: 11/21/19 22:09 Last Admin: 10/22/19 23:21 Dose: 50 mg Documented by: [id number] Warfarin Sodium (Coumadin) 3 mg PO MOWEFRSA@1600 [facility] Stop: 11/21/19 21:34 Last Admin: 10/22/19 23:20 Dose: 3 mg Documented by: [id number] Discontinued Medications Furosemide (Lasix) 60 mg IV NOW STA Stop: 10/22/19 20:40 Last Admin: 10/22/19 20:51 Dose: 60 mg Documented by: [id number] Insulin Human Regular (Novolin R U-100 Per Unit) 10 units IV NOW STA Stop: 10/22/19 21:27 Last Admin: 10/22/19 21:46 Dose: 10 units Documented by: [id number] Cosigned by: [id number] Nitroglycerin (Nitro-Bid 2%) 0.5 inch EXT NOW [facility] Stop: 10/22/19 20:41 Last Admin: 10/22/19 20:51 Dose: 0.5 inch Documented by: [id number] Potassium Chloride (Klor-Con M20) 40 meq PO NOW STA Stop: 10/22/19 22:06 Last Admin: 10/22/19 23:25 Dose: 40 meq Documented by: [id number] Imaging Data Radiologist's Impression: Radiology results as stated below per my review and the radiologist's interpretation: SINGLE VIEW CHEST CLINICAL HISTORY: Dyspnea. FINDINGS: An AP, portable, upright chest radiograph is compared to study dated 06/17/2019. The examination is degraded by portable technique and apical lordotic positioning. Heart is enlarged noting atherosclerotic calcification of the thoracic aorta. There is mild pulmonary vascular congestion. There is bibasilar atelectasis. No airspace consolidation or large pleural effusion is identified. No pneumothorax is seen. The skeletal structures are osteopenic. The bony thorax is grossly intact. IMPRESSION: Cardiomegaly with evidence of mild congestive failure. Electronically signed by: Rusty Macias M.D. 10/22/2019 6:35 PM ECG Data Attestation: I personally reviewed and interpreted this ECG as follows: Indication: + SOB/dyspnea Rate (beats per minute): 106 Rhythm: atrial fibrillation (with RVR) ECG Intervals/blocks: + Normal QRS and + Normal QT ECG [place]: + Normal ECG ST segments: no ST depression and no ST elevation ECG Findings: + Other (Non-specific ST abn, low voltage QRS); no PVCs Blood Pressure Blood Pressure Findings: Elevated blood pressure Blood Pressure Disposition: further management by hospitalist Discharge Plan Visit Data *Final* Discharge Date/Time: 10/22/19 22:02 Chief Complaint: Shortness of Breath/Dyspnea Stated Complaint: SOB, HYPERGLYCEMIA, EDEMA TO LOWER EXTREMITES ED Provider: Liam Stewart Discharge Problem: SOB (shortness of breath), CHF (congestive heart failure), Atrial fibrillation with RVR Patient Disposition: Admitted As Inpatient Discharge Instructions Interventions: ED Discharge Assessment Last Done: 10/22/19 22:02 The scribe's documentation has been prepared under my direction and personally reviewed by me in its entirety. I confirm that the note above accurately reflects all work, treatment, procedures, and medical decision making performed by me.
[2019-10-23] MEDS ORDERED: INSULIN ASPART 100 UNITS/ML 3 ML PEN SC SCH (02:00)
[2019-10-23 08:06] LABS: Hematocrit (blood only) 42.7 % (37-47); Hemoglobin 13.3 g/dL (12.0-16.0); Mean Corpuscular Hemoglobin 30.2 pg (25-34); Mean Corpuscular Hgb Conc 31.1 g/dL (32-36); Mean Platelet Volume 10.2 fL (7.4-10.4); Platelet Count 154 K/uL (130-400); RDW Coefficient of Variation 15.6 % (11.5-14.5); RDW Standard Deviation 55.2 fL (36.4-46.3); White Blood Count 7.94 K/uL (4.8-10.8)
[2019-10-23 08:15] LABS: INR 2.5 (0.9-1.1); Prothrombin Time 23.6 Seconds (9.0-12.0)
[2019-10-23 08:30] LABS: Estimated Average Glucose 240 mg/dl
[2019-10-23] MEDS: INSULIN ASPART 100 UNITS/ML 3 ML PEN SC SCH ×4 (08:31→20:24)
[2019-10-23] MEDS: METOPROLOL SUCC 50MG EXT REL TAB PO SCH ×2 (08:32→20:22)
[2019-10-23] MEDS: CYANOCOBALAMIN 500 MCG TABLET (VITAMIN B-12) PO SCH (08:33)
[2019-10-23] MEDS: POTASSIUM CHLORIDE 10 MEQ TABCR PO SCH (08:33)
[2019-10-23] MEDS: ATORVASTATIN 40 MG TAB PO SCH (08:33)
[2019-10-23] MEDS: allopurinoL 300 MG TAB PO SCH (08:34)
[2019-10-23] MEDS: CHOLECALCIFEROL 1,000 UNITS TAB PO SCH (08:34)
[2019-10-23] MEDS: GABAPENTIN 100 MG CAP PO SCH ×3 (08:34→20:22)
[2019-10-23] MEDS: ASPIRIN 81 MG ECTAB PO SCH (08:34)
[2019-10-23 08:50] LABS: BUN Creatinine Ratio 27.6 (10-20); Calcium 9.4 mg/dl (8.5-10.1); Creatinine Clr Calc Pharmacy 63.9 ml/min; Est GFR (African American) 67.4; Est GFR (Non-African American) 58.1; Potassium 3.9 mmol/L (3.5-5.1)
[2019-10-23] MEDS ORDERED: PNEUMOCOCCAL POLYSACCHARIDES 25 MCG/0.5 ML VIAL/SYR IM ONE (09:00)
[2019-10-23] MEDS ORDERED: GABAPENTIN 100 MG CAP PO SCH (09:00)
[2019-10-23] MEDS ORDERED: PNEUMOCOCCAL ADMINISTRATION CHARGE ONE (09:00)
[2019-10-23] MEDS: INSULIN GLARGINE SOLOSTAR 100 UNITS/ML 3 ML PEN SC SCH (10:58)
[2019-10-23] MEDS: SPIRONOLACTONE 25 MG TAB PO SCH (10:59)
--- NOTE | 2019-10-23 13:38 | Pharmacy Report ---
Glycemic Control Consultation - Date of Service October 23, 2019 - Scope Scope: Glycemic Pharmacist consulted by Odalis Rdz on 10/22/19 for glycemic control and to write orders per [facility] inpatient glycemic control protocol - Objective Weight: 116.9 kg Accuchecks BSG (last 24hrs): 10/22/19 10/22/19 10/22/19 18:05 19:08 22:38 Glucose 375 H* POC Glucose 428 H* 205 H 10/23/19 10/23/19 10/23/19 02:07 07:50 08:21 Glucose 115 H POC Glucose 112 H 158 H Laboratory Data (last 24hrs): 10/22/19 10/23/19 19:08 07:50 Potassium 3.4 L 3.9 Carbon Dioxide 34 H 37 H Anion Gap 5.0 3.0 Creatinine 1.15 0.99 Est Cr Clr Drug Dosing 56.6 63.9 Beta-Hydroxybutyric Acd 0.56 HbA1c: Hemoglobin A1c 10.0 % (4.5-5.6) H 10/23/19 07:50 - Recent Pertinent Medications Outpatient Anti-diabetic Regimen: * Lantus 50u QAM * A1c = 10 % 10/23/19 - Assessment & Plan Assessment & Plan: ASSESSMENT: * Pt is a 68yo F type 2 diabetic, known to the pharmacy glycemic service from previous admissions. Her outpt glycemic management is poor as evidenced by her A1C of 10%. However, it is improving: Malu's A1C was 10.9%. She p/w acute on chronic HF exacerbation. Her PMHx is consistent with COPD, AF, HTN, among others. Her goal A1C is likely closer to 8.0%. * Initially BSGs in the 400s and 300s. BSGs markedly improved today. She is ordered a diet and tolerating it. Minimal other RF to confer insulin resistance at this juncture. PLAN FOR INPATIENT GLYCEMIC CONTROL: * Basal insulin * Lantus 35u QAM. Historically, this dose seems to work for her while hospitalized. * Bolus insulin * NovoLog per scale ACHS or Q6hrs while NPO * Goal Range: Low 120 mg/dL - High 160 mg/dL * Correction Factor: 15 mg/dL/unit * Nutritional / Prandial insulin per carb ratio of 1 unit per 5 grams CHO consumed * Please note that the plan above was derived based on current level of insulin resistance and hospital stress. These recommendations are appropriate for inpatient admission only. Plan of care upon discharge will need to be reassessed to avoid potential outpatient hypo/hyperglycemia. Thank you.
[2019-10-23] MEDS ORDERED: WARFARIN SOD 2.5 MG TAB PO SCH (16:00)
[2019-10-23] MEDS ORDERED: WARFARIN SOD 3 MG TAB PO SCH (16:00)
[2019-10-23] MEDS ORDERED: WARFARIN SOD 2 MG TAB PO SCH (16:00)
[2019-10-23 18:49] LABS: Appearance Urine Clear (Clear); Bacteria Urine Automated Negative (Negative); Bilirubin Urine Negative (Negative); Blood Urine Trace (Negative); Color Urine Yellow; Epithelial Cell Urine Auto >30 /lpf (0-5); Glucose Urine UA Trace (Negative); Ketones Urine Negative (Negative); Leukocyte Esterase Urine Negative (Negative); Nitrite Urine Negative (Negative); Protein Urine 2+ (Negative); RBC Urine Automated 0-4 /hpf (0-4); Specific Gravity Urine 1.019 (1.000-1.030); Urobilinogen Urine Negative (Negative); pH Urine 5.5 (4.5-7.5)
[2019-10-23] MEDS ORDERED: FUROSEMIDE 40 MG in SYRINGE 0 ML IV ONE (19:15)
[2019-10-23] MEDS: WARFARIN SOD 3 MG TAB PO SCH (19:58)
--- NOTE | 2019-10-23 23:33 | Hospitalist Progress Note ---
Date of Service October 23, 2019 Assessment & Plan (1) Acute on chronic diastolic CHF (congestive heart failure): This is a 68yo F with a PMH of R sided heart failure, cor pulmonale, COPD, chronic respiratory failure on 2L NC O2, DM II, HTN, chronic A Fib on anticoagulation, PVD with recent RFA of right greater saphenous vein by Dr. Holder on 04/06/19, venous ulcers, NUVIA on CPAP, tobacco use and other medical problems listed below who presents with dyspnea on exertion and chest discomfort and was found to have acute on chronic CHF and hyperglycemia. -Per outpatient notes, patient has gained 10 pounds since October 16 with associated shortness of breath and worsening bilateral lower extremity edema -Recently had torsemide dose increased from 40 twice daily to 60 twice daily due to noted weight gain. Was also instructed to take metolazone 2.5 mg this morning prior to torsemide dose -Chest x-ray with cardiomegaly and evidence of mild congestive failure. BNP elevated at 2624. Initial troponin negative -Given 60 mg IV Lasix in ED -Reassess volume status in a.m. to determine continued dose of diuretics -Is at respiratory baseline on 2 L nasal cannula O2 -Strict intake and output, daily weight, low-sodium diet This morning patient is comfortably sitting in the chair, however she is on 3 L of O2 via nasal cannula instead of 2L (baseline). She says that her lower extremity edema is much better than before and that she overall feels better even asking about going home today. Her weight this a.m. is unchanged since admission. No I's and O's documented, no urine output documented. Patient says that she voided several times. Pt agreed to recheck her weight in the afternoon, her weight was increased, and so decided to stay for now, will give her 40 IV Lasix. Discussed in detail with nursing staff, that weights and I's and O's are crucial for this patient Will reassess in the morning (2) Acute hyperglycemia: (3) Diabetes mellitus, type II: Initial serum blood sugar 375 -Given 10 units of IV regular insulin -Home regimen includes 50mg Latus qAM -Glycemic management per pharmacy (4) Chronic atrial fibrillation: EKG with atrial fibrillation in 90s -Continue Toprol twice daily -Continue Coumadin for anticoagulation -INR therapeutic at 2.3 (5) Chronic respiratory failure with hypoxia: Currently using 3L/min which is slightly higher than her respiratory baseline with (2 L nasal cannula O2) We will recheck pulse ox, and will try to wean down to her baseline (6) NUVIA on CPAP: CPAP at bedtime Subjective Patient sitting in a chair, comfortable, on 3 L of O2 via nasal cannula. She says that her lower extremity edema has much improved, and that she feels so much better than yesterday. She is actually inquiring about going home today. Unfortunately the weight recorded for this morning, is the same as on admission, also there is no urine output recorded. Patient says that she voided several times. Will have her weight rechecked. Discussed with nursing staff that it is crucial to obtain standing weights in the morning, and record I's and O's for this patient. Review of Systems Review of Systems: All systems reviewed & are unremarkable except as noted in HPI & below Constitutional: no fever and no chills Respiratory: no dyspnea (But she is using 3 L of nasal cannula) Cardiovascular: + edema (Bilateral lower extremity edema, per patient it is improved); no chest pain and no palpitations Gastrointestinal: no abdominal pain, no nausea and no vomiting Physical Exam Physical Exam: General Appearance: WD/WN, no apparent distress, morbidly obese, on 3L/min O2 via NC HEENT: normocephalic, atraumatic, EOMI, PERRL ENT: hearing grossly normal, pharynx normal (moist mucous membranes) Neck: supple, no JVD, no adenopathy Respiratory/Chest: Decreased breath sounds bilaterally with fine bibasilar crackles. No rhonci. No respiratory distress or accessory muscle use. Cardiovascular: irregular rate & rhythm, no murmur appreciated, normal peripheral pulses, 2+ LE edema b/l Abdomen/GI: normal bowel sounds, soft, non-tender to palpation, obese Extremities/Musculoskelatal: no calf tenderness, moves all 4 extremities sp ontaneously,LE edema 2+ b/l Neurologic/Psych: alert, normal mood/affect, oriented x 3 Skin: normal color, warm/dry. chronic venous stasis changes noted on LEs Results & Data Vital Signs (Past 12 Hours) Vital Signs Temp Pulse Pulse Resp BP BP Pulse Ox 10/23/19 18:58 36.9 C 98 H 24 133/68 94 10/23/19 15:29 102 H 10/23/19 14:59 36.6 C 99 H 19 117/58 L 95 10/23/19 13:36 10/23/19 13:21 97 10/23/19 12:03 36.4 C L 102 H 24 141/85 H 99 Pulse Ox 10/23/19 18:58 10/23/19 15:29 10/23/19 14:59 10/23/19 13:36 94 10/23/19 13:21 10/23/19 12:03 Laboratory Results 10/23/19 10/23/19 10/23/19 Range/Units 20:07 18:30 16:03 WBC (4.8-10.8) K/uL RBC (4.2-5.4) M/uL Hgb (12.0-16.0) g/dL Hct (37-47) % MCV (80-100) fL MCH (25-34) pg MCHC (32-36) g/dL RDW Std Deviation (36.4-46.3) fL RDW Coeff of Patrick (11.5-14.5) % Plt Count (130-400) K/uL MPV (7.4-10.4) fL PT (9.0-12.0) Seconds INR (0.9-1.1) Sodium (136-145) mmol/L Potassium (3.5-5.1) mmol/L Chloride (98-107) mmol/L Carbon Dioxide (21-32) mmol/L Anion Gap (3-11) BUN (7-18) mg/dl Creatinine (0.6-1.2) mg/dl Est Cr Clr Drug Dosing ml/min Est GFR ( Amer) Est GFR (Non-Af Amer) BUN/Creatinine Ratio (10-20) Glucose (70-99) mg/dl POC Glucose 194 H 145 H (70-99) Estimat Average Glucose mg/dl Hemoglobin A1c (4.5-5.6) % Calcium (8.5-10.1) mg/dl Troponin I (0-0.045) ng/ml Urine Color Yellow Urine Appearance Clear (Clear) Urine pH 5.5 (4.5-7.5) Ur Specific Bouse 1.019 (1.000-1.030) Urine Protein 2+ H (Negative) Urine Glucose (UA) Trace H (Negative) Urine Ketones Negative (Negative) Urine Blood Trace H (Negative) Urine Nitrite Negative (Negative) Urine Bilirubin Negative (Negative) Urine Urobilinogen Negative (Negative) Ur Leukocyte Esterase Negative (Negative) Urine WBC (Auto) 1-5 (0-5) /hpf Urine RBC (Auto) 0-4 (0-4) /hpf U Hyaline Cast (Auto) 1-5 (0-5) /lpf U Epithel Cells (Auto) >30 H (0-5) /lpf Urine Bacteria (Auto) Negative (Negative) 10/23/19 10/23/19 10/23/19 Range/Units 11:32 08:21 07:50 WBC (4.8-10.8) K/uL RBC (4.2-5.4) M/uL Hgb (12.0-16.0) g/dL Hct (37-47) % MCV (80-100) fL MCH (25-34) pg MCHC (32-36) g/dL RDW Std Deviation (36.4-46.3) fL RDW Coeff of Patrick (11.5-14.5) % Plt Count (130-400) K/uL MPV (7.4-10.4) fL PT (9.0-12.0) Seconds INR (0.9-1.1) Sodium (136-145) mmol/L Potassium (3.5-5.1) mmol/L Chloride (98-107) mmol/L Carbon Dioxide (21-32) mmol/L Anion Gap (3-11) BUN (7-18) mg/dl Creatinine (0.6-1.2) mg/dl Est Cr Clr Drug Dosing ml/min Est GFR ( Amer) Est GFR (Non-Af Amer) BUN/Creatinine Ratio (10-20) Glucose (70-99) mg/dl POC Glucose 124 H 158 H (70-99) Estimat Average Glucose 240 mg/dl Hemoglobin A1c 10.0 H (4.5-5.6) % Calcium (8.5-10.1) mg/dl Troponin I (0-0.045) ng/ml Urine Color Urine Appearance (Clear) Urine pH (4.5-7.5) Ur Specific Bouse (1.000-1.030) Urine Protein (Negative) Urine Glucose (UA) (Negative) Urine Ketones (Negative) Urine Blood (Negative) Urine Nitrite (Negative) Urine Bilirubin (Negative) Urine Urobilinogen (Negative) Ur Leukocyte Esterase (Negative) Urine WBC (Auto) (0-5) /hpf Urine RBC (Auto) (0-4) /hpf U Hyaline Cast (Auto) (0-5) /lpf U Epithel Cells (Auto) (0-5) /lpf Urine Bacteria (Auto) (Negative) 10/23/19 10/23/19 10/23/19 Range/Units 07:50 07:50 07:50 WBC (4.8-10.8) K/uL RBC (4.2-5.4) M/uL Hgb (12.0-16.0) g/dL Hct (37-47) % MCV (80-100) fL MCH (25-34) pg MCHC (32-36) g/dL RDW Std Deviation (36.4-46.3) fL RDW Coeff of Patrick (11.5-14.5) % Plt Count (130-400) K/uL MPV (7.4-10.4) fL PT 23.6 H (9.0-12.0) Seconds INR 2.5 H (0.9-1.1) Sodium 143 (136-145) mmol/L Potassium 3.9 (3.5-5.1) mmol/L Chloride 103 (98-107) mmol/L Carbon Dioxide 37 H (21-32) mmol/L Anion Gap 3.0 (3-11) BUN 27 H (7-18) mg/dl Creatinine 0.99 (0.6-1.2) mg/dl Est Cr Clr Drug Dosing 63.9 ml/min Est GFR ( Amer) 67.4 Est GFR (Non-Af Amer) 58.1 BUN/Creatinine Ratio 27.6 H (10-20) Glucose 115 H (70-99) mg/dl POC Glucose (70-99) Estimat Average Glucose mg/dl Hemoglobin A1c (4.5-5.6) % Calcium 9.4 (8.5-10.1) mg/dl Troponin I 0.024 (0-0.045) ng/ml Urine Color Urine Appearance (Clear) Urine pH (4.5-7.5) Ur Specific Bouse (1.000-1.030) Urine Protein (Negative) Urine Glucose (UA) (Negative) Urine Ketones (Negative) Urine Blood (Negative) Urine Nitrite (Negative) Urine Bilirubin (Negative) Urine Urobilinogen (Negative) Ur Leukocyte Esterase (Negative) Urine WBC (Auto) (0-5) /hpf Urine RBC (Auto) (0-4) /hpf U Hyaline Cast (Auto) (0-5) /lpf U Epithel Cells (Auto) (0-5) /lpf Urine Bacteria (Auto) (Negative) 10/23/19 10/23/19 10/23/19 Range/Units 07:50 02:07 01:02 WBC 7.94 (4.8-10.8) K/uL RBC 4.40 (4.2-5.4) M/uL Hgb 13.3 (12.0-16.0) g/dL Hct 42.7 (37-47) % MCV 97.0 (80-100) fL MCH 30.2 (25-34) pg MCHC 31.1 L (32-36) g/dL RDW Std Deviation 55.2 H (36.4-46.3) fL RDW Coeff of Patrick 15.6 H (11.5-14.5) % Plt Count 154 (130-400) K/uL MPV 10.2 (7.4-10.4) fL PT (9.0-12.0) Seconds INR (0.9-1.1) Sodium (136-145) mmol/L Potassium (3.5-5.1) mmol/L Chloride (98-107) mmol/L Carbon Dioxide (21-32) mmol/L Anion Gap (3-11) BUN (7-18) mg/dl Creatinine (0.6-1.2) mg/dl Est Cr Clr Drug Dosing ml/min Est GFR ( Amer) Est GFR (Non-Af Amer) BUN/Creatinine Ratio (10-20) Glucose (70-99) mg/dl POC Glucose 112 H (70-99) Estimat Average Glucose mg/dl Hemoglobin A1c (4.5-5.6) % Calcium (8.5-10.1) mg/dl Troponin I 0.025 (0-0.045) ng/ml Urine Color Urine Appearance (Clear) Urine pH (4.5-7.5) Ur Specific Bouse (1.000-1.030) Urine Protein (Negative) Urine Glucose (UA) (Negative) Urine Ketones (Negative) Urine Blood (Negative) Urine Nitrite (Negative) Urine Bilirubin (Negative) Urine Urobilinogen (Negative) Ur Leukocyte Esterase (Negative) Urine WBC (Auto) (0-5) /hpf Urine RBC (Auto) (0-4) /hpf U Hyaline Cast (Auto) (0-5) /lpf U Epithel Cells (Auto) (0-5) /lpf Urine Bacteria (Auto) (Negative) Medications Administered Current Inpatient Medications Acetaminophen (Tylenol) 650 mg PO Q4H PRN PRN Reason: Pain or Fever Stop: 11/21/19 22:45 Allopurinol (Zyloprim) 300 mg PO QAM [facility] Stop: 11/22/19 08:59 Last Admin: 10/23/19 08:34 Dose: 300 mg Documented by: Aspirin (Ecotrin Ectab) 81 mg PO QAM [facility] Stop: 11/22/19 08:59 Last Admin: 10/23/19 08:34 Dose: 81 mg Documented by: Atorvastatin Calcium (Lipitor) 80 mg PO QAM [facility] Stop: 11/22/19 08:59 Last Admin: 10/23/19 08:33 Dose: 80 mg Documented by: Cyanocobalamin (Vitamin B-12) 1,000 mcg PO QAM [facility] Stop: 11/22/19 08:59 Last Admin: 10/23/19 08:33 Dose: 1,000 mcg Documented by: Dextrose (Dextrose 50%) 25 - 50 ml IV UD PRN; Protocol PRN Reason: Hypoglycemia Protocol Stop: 11/21/19 22:45 Gabapentin (Neurontin) 300 mg PO HS [facility] Stop: 11/21/19 21:34 Last Admin: 10/23/19 20:22 Dose: 300 mg Documented by: Gabapentin (Neurontin) 100 mg PO BID@0900,1200 [facility] Stop: 11/22/19 08:59 Last Admin: 10/23/19 12:28 Dose: 100 mg Documented by: Glucagon (Glucagen) 1 mg SQ UD PRN; Protocol PRN Reason: Hypoglycemia Protocol Stop: 11/21/19 22:45 Glucose (Dex4 Glucose) 4 - 8 tabs PO UD PRN; Protocol PRN Reason: Hypoglycemia Protocol Stop: 11/21/19 22:45 Glucose (Glucose 40%) 15 - 30 gm PO UD PRN; Protocol PRN Reason: Hypoglycemia Protocol Stop: 11/21/19 22:45 Insulin Aspart (Novolog Flexpen) 0 units SC ACHS [facility] Stop: 11/21/19 23:14 Last Admin: 10/23/19 20:24 Dose: 3 units Documented by: Insulin [facility]argine ([facility]us [facility]ostar [facility]) [facility] Protocol Stop: 11/22/19 09:59 Last Admin: 10/23/19 10:58 Dose: 35 units Documented by: Metoprolol Succinate (Toprol Xl) 50 mg PO BID [facility] Stop: 11/21/19 22:09 Last Admin: 10/23/19 20:22 Dose: 50 mg Documented by: Miscellaneous (Carbohydrates For Hypoglycemia) 15 - 30 gm PO UD PRN PRN Reason: Hypoglycemia Protocol Stop: 11/21/19 22:45 Miscellaneous Information (Consult Glycemic Management Pharmacy) 1 ea N/A UD PRN; Protocol PRN Reason: Consult Stop: 11/21/19 22:58 Nitroglycerin (Nitrostat) 0.4 mg SL UD PRN PRN Reason: Chest Pain Stop: 11/21/19 22:45 Ondansetron HCl (Zofran) 4 mg IV Q6H PRN PRN Reason: Nausea Stop: 11/21/19 22:45 Potassium Chloride (Klor-Con M10) 10 meq PO DAILY [facility] Stop: 11/22/19 08:59 Last Admin: 10/23/19 08:33 Dose: 10 meq Documented by: Spironolactone (Aldactone) 12.5 mg PO DAILY@1100 [facility] Stop: 11/22/19 10:59 Last Admin: 10/23/19 10:59 Dose: 12.5 mg Documented by: Tramadol HCl (Ultram) 50 mg PO Q8H PRN PRN Reason: Pain Stop: 11/21/19 22:45 Vitamin D (Vitamin D3) 2,000 units PO QAM [facility] Stop: 11/22/19 08:59 Last Admin: 10/23/19 08:34 Dose: 2,000 units Documented by: Warfarin Sodium (Coumadin) 2 mg PO SuTh@1600 [facility] Stop: 11/24/19 15:59 Warfarin Sodium (Coumadin) 3 mg PO MoTuWeFrSa@1600 [facility] Stop: 11/22/19 18:59 Last Admin: 10/23/19 19:58 Dose: 3 mg Documented by: Warfarin Sodium (Coumadin) 2.5 mg PO SuTh@1600 [facility] Stop: 11/24/19 15:59 (1) Diabetes mellitus, type II Diabetes mellitus day care provider insulin use: unspecified fci insulin use status Diabetes mellitus complication status: with kidney complications Diabet es mellitus complication detail: with chronic kidney disease
[2019-10-24 07:54] LABS: Hematocrit (blood only) 43.6 % (37-47); Hemoglobin 13.6 g/dL (12.0-16.0); Mean Corpuscular Hemoglobin 30.3 pg (25-34); Mean Corpuscular Hgb Conc 31.2 g/dL (32-36); Mean Corpuscular Volume 97.1 fL (80-100); Mean Platelet Volume 10.1 fL (7.4-10.4); Platelet Count 164 K/uL (130-400); RDW Coefficient of Variation 15.4 % (11.5-14.5); RDW Standard Deviation 54.2 fL (36.4-46.3); Red Blood Count 4.49 M/uL (4.2-5.4); White Blood Count 8.93 K/uL (4.8-10.8)
[2019-10-24 08:03] LABS: INR 2.2 (0.9-1.1); Prothrombin Time 21.7 Seconds (9.0-12.0)
[2019-10-24] MEDS: GABAPENTIN 100 MG CAP PO SCH ×3 (08:30→19:37)
[2019-10-24] MEDS: ASPIRIN 81 MG ECTAB PO SCH (08:31)
[2019-10-24] MEDS: POTASSIUM CHLORIDE 10 MEQ TABCR PO SCH (08:31)
[2019-10-24] MEDS: INSULIN ASPART 100 UNITS/ML 3 ML PEN SC SCH ×4 (08:32→20:41)
[2019-10-24] MEDS: INSULIN GLARGINE SOLOSTAR 100 UNITS/ML 3 ML PEN SC SCH (08:33)
[2019-10-24 08:34] LABS: BUN Creatinine Ratio 30.6 (10-20); Calcium 9.7 mg/dl (8.5-10.1); Creatinine Clr Calc Pharmacy 54.3 ml/min; Est GFR (African American) 55.6; Potassium 3.9 mmol/L (3.5-5.1)
[2019-10-24] MEDS: ATORVASTATIN 40 MG TAB PO SCH (08:34)
[2019-10-24] MEDS: METOPROLOL SUCC 50MG EXT REL TAB PO SCH ×2 (08:34→19:37)
[2019-10-24] MEDS: allopurinoL 300 MG TAB PO SCH (08:34)
[2019-10-24] MEDS: CYANOCOBALAMIN 500 MCG TABLET (VITAMIN B-12) PO SCH (08:34)
[2019-10-24] MEDS: CHOLECALCIFEROL 1,000 UNITS TAB PO SCH (08:34)
[2019-10-24] MEDS ORDERED: FUROSEMIDE 60 MG in SYRINGE 0 ML IV STA (11:40)
[2019-10-24] MEDS: SPIRONOLACTONE 25 MG TAB PO SCH (12:13)
[2019-10-24 16:58] LABS: BUN Creatinine Ratio 29.2 (10-20); Calcium 9.8 mg/dl (8.5-10.1); Creatinine Clr Calc Pharmacy 45.3 ml/min; Est GFR (African American) 44.7; Est GFR (Non-African American) 38.6; Potassium 4.2 mmol/L (3.5-5.1)
[2019-10-24] MEDS: WARFARIN SOD 3 MG TAB PO SCH (17:13)
--- NOTE | 2019-10-24 17:30 | Hospitalist Progress Note ---
Date of Service October 24, 2019 Assessment & Plan (1) Acute on chronic diastolic CHF (congestive heart failure): 68yo F with a PMH of R sided heart failure, cor pulmonale, COPD, chronic respiratory failure on 2L NC O2, DM II, HTN, chronic A Fib on anticoagulation, PVD with recent RFA of right greater saphenous vein by Dr. Holder on 04/06/19, venous ulcers, NUVIA on CPAP, tobacco use and other medical problems listed below who presents with dyspnea on exertion and chest discomfort and was found to have acute on chronic CHF and hyperglycemia. -Per outpatient notes, patient has gained 10 pounds since October 16 with associated shortness of breath and worsening bilateral lower extremity edema -Recently had torsemide dose increased from 40 twice daily to 60 twice daily due to noted weight gain. Was also instructed to take metolazone 2.5 mg this morning prior to torsemide dose -Chest x-ray with cardiomegaly and evidence of mild congestive failure. BNP elevated at 2624. Troponin negative -Given 60 mg IV Lasix in ED. Got lasix in AM and yesterday -Still has leg edema which seems chronic. Due to her breathy speech and basilar crackles, I asked RN to assess her walking pulse ox dropped to 84% on her usual 2L/min. Gave iv lasix 60mg this AM Will continue to reassess volume status and monitor I/O Will recheck Cr this evening, if no bump, will consider giving more diuretics. If increased will hold off Get 2D Echol I think patient hypoxia is multifactorial - some congestion, OHS and possibly some chronic airway disease. Patient still smokes cigarettes 0.5pack per week. I counselled her extensively on need to quit. She stated she is working on it and not interested in pharmacologic resource at this time. Will plan for discharge tomorrow (2) Acute hyperglycemia: (3) Diabetes mellitus, type II: -Monitor BGS -Home regimen includes 54U Lantus qAM. Currenlty on 35u QAM -Glycemic management per pharmacy (4) Chronic atrial fibrillation: -Continue Toprol twice daily -Continue Coumadin for anticoagulation -INR therapeutic at 2.2 today (5) Chronic respiratory failure with hypoxia: Currently using 2L/min which is her baseline Will reassess walking pulse ox in AM and see if patient needs more supplementation with exertion (6) NUVIA on CPAP: CPAP at bedtime Subjective Patient seen and examined Reports feeling better. Denied any chest pain. Denied any shortness of breath. Denied any fevers or chills Review of Systems Review of Systems: All systems reviewed and unremarkable except for mentioned above. Physical Exam Physical Exam: General: Obese no acute distress, get breathy after talking for sometime Eyes: PERRL, conjunctivae normal, not pale, anicteric sclerae, EOM intact bilaterally ENMT: External ear and nose normal, oropharynx normal Neck: Normal visual inspection, no tracheal deviation, no swelling noted Respiratory: Normal respiratory effort, Mild basilar fine crackles, No wheeze, decreased breath sound lung bases Cardiovascular: Pulse is irregular rhythm,normal rate. S1 S2 Extremities: 1+ edema with features of chronic stasis Chest (Breasts): Chest: normal inspection of chest Gastrointestinal (Abdomen): Abdomen is not distended, soft, non-tender to palpation, no guarding, no palpable hepatosplenomegaly, normal bowel sounds Musculoskeletal: No cyanosis or clubbing Skin: No rash noted on gross inspection, No ulcers noted Neurologic: Alert and oriented x 3, No focal weakness, sensation grossly intact Psychiatric: Alert and oriented x 3, euthymic affect, no depressed affect Results & Data Vital Signs (Past 12 Hours) Vital Signs Temp Pulse Resp BP Pulse Ox 10/24/19 15:35 36.3 C L 104 H 20 151/85 H 94 10/24/19 11:39 36.9 C 100 H 22 121/68 97 10/24/19 07:58 36.8 C 108 H 16 121/68 97 (1) Diabetes mellitus, type II Diabetes mellitus complication detail: with chronic kidney disease Diabetes mellitus complication status: with kidney complications 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
[2019-10-25 07:41] LABS: BUN Creatinine Ratio 35.4 (10-20); Calcium 9.7 mg/dl (8.5-10.1); Creatinine Clr Calc Pharmacy 53.8 ml/min; Est GFR (African American) 55.1; Est GFR (Non-African American) 47.5; Potassium 3.7 mmol/L (3.5-5.1)
[2019-10-25] MEDS: GABAPENTIN 100 MG CAP PO SCH ×2 (08:26→11:31)
[2019-10-25] MEDS: POTASSIUM CHLORIDE 10 MEQ TABCR PO SCH (08:26)
[2019-10-25] MEDS: CYANOCOBALAMIN 500 MCG TABLET (VITAMIN B-12) PO SCH (08:27)
[2019-10-25] MEDS: METOPROLOL SUCC 50MG EXT REL TAB PO SCH (08:27)
[2019-10-25] MEDS: allopurinoL 300 MG TAB PO SCH (08:27)
[2019-10-25] MEDS: ASPIRIN 81 MG ECTAB PO SCH (08:27)
[2019-10-25] MEDS: ATORVASTATIN 40 MG TAB PO SCH (08:27)
[2019-10-25] MEDS: CHOLECALCIFEROL 1,000 UNITS TAB PO SCH (08:27)
[2019-10-25] MEDS: INSULIN GLARGINE SOLOSTAR 100 UNITS/ML 3 ML PEN SC SCH (08:28)
[2019-10-25] MEDS: INSULIN ASPART 100 UNITS/ML 3 ML PEN SC SCH ×2 (08:29→13:06)
[2019-10-25] MEDS ORDERED: TORSEMIDE 20 MG TAB PO SCH (09:00)
[2019-10-25] MEDS: SPIRONOLACTONE 25 MG TAB PO SCH (11:30)
[2019-10-25] MEDS ORDERED: WARFARIN SOD 2 MG TAB PO SCH (16:00)
[2019-10-25] MEDS ORDERED: WARFARIN SOD 2.5 MG TAB PO SCH (16:00)
--- NOTE | 2019-10-25 16:56 | Discharge Summary ---
Date of Service October 25, 2019 Admission HPI Per Admitting Provider This is a 68yo F with a PMH of R sided heart failure, cor pulmonale, COPD, chronic respiratory failure on 2L NC O2, DM II, HTN, chronic A Fib on anticoagulation, PVD with recent RFA of right greater saphenous vein by Dr. Holder on 04/06/19, venous ulcers, NUVIA on CPAP, tobacco use and other medical problems listed below who presents with dyspnea on exertion and chest discomfort. Patient states she is noted swelling in her lower legs as well as weight gain over the past week. Per home health records, patient has gained approximately 10 pounds since October 16 with associated increased shortness of breath and lower extremity edema. Was instructed to take metolazone 2.5 mg today as well as recently torsemide dose of 60 mg twice daily, which was increased earlier this week. On patient began to experience some chest discomfort this afternoon, her niece brought her in for further evaluation. States that chest pain feels fluttery and has resolved since being given Nitropaste in the ED. Is on Coumadin for atrial fibrillation and INR is therapeutic at 2.3. Patient found to be afebrile and hemodynamically stable. Slightly tachycardic at 105. Oxygen saturation of 94% on 2 L (at baseline). Initial [id number] glucose of 428 with serum glucose of 375. BNP elevated at 2624. Initial troponin negative. EKG with atrial fibrillation at 97 bpm. No significant changes noted from previous EKGs. Chest x-ray with cardiomegaly and evidence of mild congestive failure. Admission Exam Per Admitting Provider General Appearance: WD/WN, no apparent distress, morbidly obese, becomes SOB when speaking Head: normocephalic, atraumatic Eyes: normal inspection, PERRL, EOMI ENT: hearing grossly normal, pharynx normal (moist mucous membranes) Neck: supple, no JVD, no adenopathy Respiratory/Chest: Decreased breath sounds bilaterally with fine bibasilar crackles. No rhonci observed. No respiratory distress or accessory muscle use. Cardiovascular: irregular rate & rhythm, no murmur appreciated, normal peripheral pulses, 3+ BLE edema Abdomen/GI: normal bowel sounds, soft, non-tender to palpation Extremities/Musculoskelatal: normal inspection, no calf tenderness, normal capillary refill Neurologic/Psych: alert, normal mood/affect, oriented x 3 Skin: normal color, warm/dry. Hyperpigmentation of BLE 2/2 chronic venous stasis with some weeping Principal Diagnosis Acute on chronic diastolic heart failure Chronic hypoxic respiratory failure Chronic atrial fibrillation Discharge Exam General: Obese no acute distress Eyes: PERRL, conjunctivae normal, not pale, anicteric sclerae, EOM intact bilaterally ENMT: External ear and nose normal, oropharynx normal Neck: Normal visual inspection, no tracheal deviation, no swelling noted Respiratory: Normal respiratory effort, No wheeze, decreased breath sound lung bases Cardiovascular: Pulse is irregular rhythm,normal rate. S1 S2 Extremities: 1+ edema with features of chronic stasis Gastrointestinal (Abdomen): Abdomen is not distended, soft, non-tender to palpation, no guarding, no palpable hepatosplenomegaly, normal bowel sounds Musculoskeletal: No cyanosis or clubbing, chronic venous dermatitis changes in both lower extremities Skin: No rash noted on gross inspection, No ulcers noted Neurologic: Alert and oriented x 3, No focal weakness, sensation grossly intact Psychiatric: Alert and oriented x 3, euthymic affect, no depressed a ffect Discharge Data Allergies Allergy/AdvReac Type Severity Reaction Status Date / Time Penicillins Allergy Mild Unknown Verified 10/22/19 18:27 rofecoxib Allergy Unknown Unknown Verified 10/22/19 18:27 sulindac Allergy Unknown Unknown Verified 10/22/19 18:27 Consultations 10/22/19 20:57 ED Decision to Admit Stat 10/22/19 22:46 Consult Case Management - Discharge Planning Routine Hospital Course (1) Acute on chronic diastolic CHF (congestive heart failure): 68yo F with a PMH of R sided heart failure, cor pulmonale, COPD, chronic respiratory failure on 2L NC O2, DM II, HTN, chronic A Fib on anticoagulation, PVD with recent RFA of right greater saphenous vein by Dr. Holder on 04/06/19, venous ulcers, NUVIA on CPAP, tobacco use and other medical problems listed below who presents with dyspnea on exertion and chest discomfort and was found to have acute on chronic CHF and hyperglycemia. -Per outpatient notes, patient has gained 10 pounds since October 16 with ass ociated shortness of breath and worsening bilateral lower extremity edema -Recently had torsemide dose increased from 40 twice daily to 60 twice daily due to noted weight gain. Was also instructed to take metolazone 2.5 mg this morning prior to torsemide dose -Chest x-ray with cardiomegaly and evidence of mild congestive failure. BNP elevated at 2624. Troponin negative -Required iv diuretics while inpatient. -Weight on admission was 122.5kg. Weight today is 116.2kg -Discharged on torsemide 60mg bid. Continue home metolazone and spironolactone -Educated on need for smoking cessation, dietary management of heart failure (2) Acute hyperglycemia: (3) Diabetes mellitus, type II: -On presentation, blood glucose was 428 -HbA1c 10. Was 10.9 in 04/2019 -Counselled patient extensively on DM management and the need for medication and dietary adherence -Continue home insulin regimen -Follow up with PCP. (4) Chronic atrial fibrillation: -Continue Toprol twice daily -Continue Coumadin for anticoagulation -INR remained therapeutic throughout stay (5) Chronic respiratory failure with hypoxia: -Currently using 2L/min which is her baseline -Can increase to 3L/min with activity as patient had intermittent mild desaturation with activity (6) NUVIA on CPAP: -CPAP at bedtime Total Time Total Time Spent Total Time Spent (In Minutes): 35 Total Time Includes: Examination of the Patient, Discharge Planning and Medication Reconciliation Discharge Plan Discharge Items Patient Disposition: Home - Self-Care Reason For Visit: SOB,PERIPHERAL EDEMA Discharge Diagnosis: Heart failure exacerbation Condition on Discharge: Fair Activity: Resume your previous activity Non-emergency contact: Primary Care Provider Call non-emergency contact if: you have any medication questions and your symptoms worsen Follow-up/Referrals: Edison Mathis MD [Primary Care Provider] - (Please follow up within 1 week) Diet: Carb Consistent or DM2, Heart Healthy and Low Sodium (2gm) Fluids: 1500ml (6 cups) Addtl Attending Provider Instructions: Ms Kumar. You came to the hospital for worsening shortness of breath and chest discomfort. you were evaluated and found to have heart failure exacerbation. You were managed with injection diuretics. Your symptoms resolved. Please take your medications as prescribed. We had extensive discussion about quitting smoking. This will help with your breathing problems. Continue using your CPAP at bedtime. Continue to use your oxygen at 2l/min at rest and 3l/min with exertion. Please follow up with your Primary Doctor and [employer]. It was a pleasure taking care of you Pending Studies at Discharge: No Stand-Alone Forms: My [facility], Smoking Cessation Medications and DC Order Prescriptions: Continued atorvastatin 40 mg Tablet 2 tab PO QAM RF: 0 cyanocobalamin (vitamin B-12) [Vitamin B-12] 1,000 mcg Tablet 1,000 mcg PO QAM RF: 0 aspirin 81 mg Tablet,Delayed Release (Dr/Ec) 81 mg PO QAM RF: 0 nitroglycerin [Nitrostat] 0.4 mg Tablet, Sublingual 1 tab Sublingual DIRECTED PRN (Reason: Chest Pain) RF: 0 allopurinol 300 mg Tablet 300 mg PO QAM RF: 0 gabapentin 100 mg Capsule 300 mg PO HS RF: 0 cholecalciferol (vitamin D3) [Vitamin D3] 1,000 unit Capsule 2,000 unit PO QAM RF: 0 Lantus Solostar U-100 Insulin 100 unit/mL (3 mL) Insulin Pen 50 unit SUBCUT QAM RF: 0 warfarin [Coumadin] 3 mg Tablet 4.5 mg PO SUTH@1600 RF: 0 acetaminophen [Tylenol Extra Strength] 500 mg Tablet 1,000 mg PO UD PRN (Reason: Pain) RF: 0 spironolactone 25 mg tablet 12.5 mg PO DAILY RF: 0 warfarin [Coumadin] 3 mg tablet 3 mg PO MOTUWEFRSA@1600 RF: 0 metoprolol succinate 50 mg Tablet Extended Release 24 Hr 50 mg PO BID Qty: 60 RF: 0 metolazone 2.5 mg tablet 2.5 mg PO DIRECTED PRN (Reason: Weight Gain) RF: 0 tramadol 50 mg tablet 50 mg PO Q8H PRN (Reason: Pain) RF: 0 potassium chloride 10 mEq capsule, extended release 10 meq PO DAILY RF: 0 gabapentin 100 mg capsule 100 mg PO BID RF: 0 torsemide 20 mg tablet 60 mg PO BID RF: 0 Discharge Orders: Discharge Order (Routine); Ordered 10/25/19 Ordered By: Pao Nichols/Other Patient Handouts: Diabetes Healthy Meals, Diabetes Meal Planning Admission Data Admit Date/Time: 10/22/19 21:24 Attending Provider: Pao Pinto I. Admit Provider: Franky Pedraza Primary Care Provider: Edison Mathis Other Providers: Jaylon Addison ; Franky Pedraza ; Burak Newton Other Interventions: Discharge Summary Assessment (RN) Last Done: 10/25/19 11:40 DC Date/Time DO NOT enter until pt leaves facility: 10/25/19 14:00
== END 2019-10-25 14:00 | disposition home or self-care (01) | DRG 292 ==
LOC: ED 17:55 → 2S 21:24 → SUATTDRO 21:24 → 2S 22:02

== ENCOUNTER 2020-01-22 07:51 | Inpatient (IN) ==
--- NOTE | 2020-01-22 08:15 | XRay Report ---
XR chest 1V portable CLINICAL HISTORY: Chest Pain dyspnea COMPARISON STUDY: 12/21/2019 FINDINGS: Moderate stable cardiomegaly. Lungs remain grossly clear. Slight chronic interstitial promi nence is noted. IMPRESSION: Moderate stable cardiomegaly. Otherwise negative study. ACT 112: Negative or not required by law. The above report was generated using voice recognition software. It may contain grammatical, syntax or spelling errors. Electronically signed by: Vinny Fernando M.D. 01/22/2020 8:14 AM
[2020-01-22 08:52] LABS: Basophils # (auto) 0.01 K/uL (0-0.2); Basophils % (auto) 0.2 %; Eosinophils # (auto) 0.08 K/uL (0-0.5); Eosinophils % (auto) 1.3 %; Hemoglobin 11.9 g/dL (12.0-16.0); Immature Granulocytes # (auto) 0.02 K/uL (0.00-0.02); Immature Granulocytes % (auto) 0.3 %; Lymphocytes # (auto) 1.11 K/uL (1.2-3.4); Mean Corpuscular Hemoglobin 29.4 pg (25-34); Mean Corpuscular Hgb Conc 31.3 g/dL (32-36); Mean Corpuscular Volume 93.8 fL (80-100); Mean Platelet Volume 11.4 fL (7.4-10.4); Monocytes # (auto) 0.73 K/uL (0.11-0.59); Monocytes % (auto) 11.9 %; Neutrophils # (auto) 4.21 K/uL (1.4-6.5); Neutrophils % (auto) 68.3 %; Platelet Count 119 K/uL (130-400); RDW Coefficient of Variation 16.9 % (11.5-14.5); Red Blood Count 4.05 M/uL (4.2-5.4); White Blood Count 6.16 K/uL (4.8-10.8)
[2020-01-22] MEDS ORDERED: ERTAPENEM SODIUM 10 ML IV STA (08:57)
[2020-01-22 09:07] LABS: Albumin Level 2.8 gm/dl (3.4-5.0); BUN Creatinine Ratio 32.7 (10-20); Calcium 8.7 mg/dl (8.5-10.1); Est GFR (African American) 28.4; Est GFR (Non-African American) 24.5; Potassium 4.3 mmol/L (3.5-5.1)
[2020-01-22 09:13] LABS: Partial Thromboplastin Ratio 1.8
[2020-01-22 09:15] LABS: Albumin Globulin Ratio 0.7 (0.9-2); Bilirubin,Total 0.5 mg/dl (0.2-1); Globulin 3.8 gm/dl (2.5-4.0); Total Protein 6.6 gm/dl (6.4-8.2); Troponin I 0.05 ng/ml (0-0.045)
--- NOTE | 2020-01-22 09:35 | Emergency Department Note ---
Entered by Lien Iverson acting as a scribe for Luís Naranjo DO History of Present Illness General Chief complaint: Shortness of Breath/Dyspnea Stated complaint: chest pain/sob Time Seen by Provider: 01/22/20 08:08 Source: patient History of Present Illness Onset (ago): day(s) 1 Location: left (lung) and right (lung) Severity: similar to prior episodes Pain Consistency: + other (persistent) Maximum Pain Intensity: 9 Quality: + other (tightness) Relieved By: not by other (C-PAP) Associated symptoms: + chest pain, + cough, + shortness of breath, + weakness and + other (wheezing, light headed, dizzy); no fever/chills The patient is a 69 year old female presenting to the Emergency Department complaining of persistent shortness of breath starting 1 day ago. The patient reports that she is short of breath. She states that she feels like she is wheezing. She explains that she feels weak, light headed and dizzy. She notes that she has a cough. She adds that her chest hurts and she describes this pain as a tightness. The patient reports that she experienced these symptoms before. The patients daughter states that the patient currently resides at [facility] after being sent there from [facility] after having a stroke. She explains that the patient is on a modified dose of a blood thinner. She notes that that the patient uses C-PAP at night but that it doesnt appear to be improving her symptoms. The patient denies recent fevers and chills. Home Medications Home Medications Medication Instructions Recorded Confirmed Type Lantus Solostar U-100 Insulin 45 unit SUBCUT QAM 08/11/18 01/22/20 History atorvastatin 80 mg PO QAM 08/11/18 01/22/20 History cholecalciferol (vitamin D3) 2,000 unit PO QAM 08/11/18 01/22/20 History [Vitamin D3] cyanocobalamin (vitamin B-12) 1,000 mcg PO QAM 08/11/18 01/22/20 History [Vitamin B-12] gabapentin 300 mg PO HS 08/11/18 01/22/20 History nitroglycerin [Nitrostat] 0.4 mg SUBLINGUAL DIRECTED PRN 08/11/18 01/22/20 History spironolactone 12.5 mg PO QAM 01/08/19 01/22/20 History warfarin [Coumadin] See Rx Instructions .ROUTE .COMPLEX 04/24/19 12/21/19 History metolazone 2.5 mg PO DIRECTED PRN 06/17/19 01/22/20 History torsemide 60 mg PO BID 10/22/19 01/22/20 History potassium chloride 10 meq PO DAILY@0800 12/21/19 01/22/20 History allopurinol 200 mg PO DAILY@0800 01/22/20 01/22/20 History digoxin 125 mcg PO DAILY 01/22/20 01/22/20 History docusate sodium 200 mg PO BID 01/22/20 01/22/20 History fluticasone furoate-vilanterol 1 inh INHALATION QAM 01/22/20 01/22/20 History [Breo Ellipta] gabapentin 100 mg PO BID 01/22/20 01/22/20 History insulin regular human [Humulin R 1 sliding scale dose SUBCUT 01/22/20 01/22/20 History Regular U-100 Insuln] USEASDIRECTD lidocaine [Lidoderm] 1 patch TOPICAL QAM 01/22/20 01/22/20 History lisinopril 5 mg PO DAILY@0800 01/22/20 01/22/20 History metoprolol succinate 200 mg PO DAILY@0800 01/22/20 01/22/20 History Allergies Allergy/AdvReac Type Severity Reaction Status Date / Time Penicillins Allergy Mild Unknown Verified 01/22/20 09:26 rofecoxib Allergy Unknown Unknown Verified 01/22/20 09:26 sulindac Allergy Unknown Unknown Verified 01/22/20 09:26 Past Med/Surg History Medical History Anemia (Chronic 11/27/13) Chronic atrial fibrillation (Chronic) Chronic respiratory failure with hypoxia (Chronic) Diabetes mellitus, type II (Chronic) Dyslipidemia (Chronic) HTN (hypertension) (Chronic) Hypocalcemia (Chronic) Hypomagnesemia (Chronic) Lumbar radiculopathy (Chronic) NUVIA on CPAP (Chronic) Pickwickian syndrome (Chronic) Polymyalgia rheumatica (Chronic) Right-sided heart failure (Chronic) Tobacco use disorder (Chronic) Surgical History History of hysterectomy (Resolved) History of total knee replacement (Resolved) Family History Father Heart disease Stroke Mother Diabetes Social History Preferred Language: Arabic Communication Ability: Effective Radar Scientist Required: No Beliefs That Will Affect Care: None marital status: / Current Living Situation: Alone Feels Safe at Home: Yes Smoking Status: Former smoker Tobacco Type: cigarettes ; Cigarettes Per Day: less then 10 ; Second Hand Exposure: No ; Hx Alcohol Use: No Hx Substance Use: No Review of Systems See HPI for pertinent positives & negatives. and A total of 10 systems reviewed and were otherwise negative Physical Exam Vital Signs Vital Signs - 24 hr 01/22/20 07:55 01/22/20 08:11 01/22/20 08:52 Temperature 37.3 C Temperature Source Oral Pulse Rate 75 Pulse Rate [Apical] 84 Respiratory Rate 24 16 Respiratory Effort / Characteristics Blood Pressure 113/80 Blood Pressure [Left Arm] 133/75 Blood Pressure Mean 91 Blood Pressure Mean [Left Arm] 94 Pulse Oximetry 83 L 97 94 Oxygen Delivery Method Room Air Nasal Cannula Nasal Cannula Oxygen Flow Rate 6 3 Sepsis Recent Fever Within 48 Hours No Sepsis Action Taken by Nursing No Action Required Oxygen Flow Rate - Titration 6 Pulse Oximetry Post Tiitration 97 01/22/20 10:08 Temperature Temperature Source Pulse Rate Pulse Rate [Apical] 84 Respiratory Rate 16 Respiratory Effort / Characteristics Spontaneous Blood Pressure Blood Pressure [Left Arm] Blood Pressure Mean Blood Pressure Mean [Left Arm] Pulse Oximetry 96 Oxygen Delivery Method Nasal Cannula Oxygen Flow Rate 3 Sepsis Recent Fever Within 48 Hours Sepsis Action Taken by Nursing Oxygen Flow Rate - Titration Pulse Oximetry Post Tiitration CONSTITUTIONAL/VITAL SIGNS: Reviewed / noted above. GENERAL: Non-toxic in appearance. INTEGUMENTARY: Warm, dry, and [place]. HEAD: Normocephalic. EYES: without scleral icterus or trauma. ENT/OROPHARYNX: clear and moist. LYMPHADENOPATHY/NECK: Is supple without lymphadenopathy or meningismus. RESPIRATORY: Scattered wheezes. CARDIOVASCULAR: Regular rate and rhythm. GI/ABDOMEN: Soft and nontender. No organomegaly or pulsatile mass. No rebound or guarding. Normal bowel sounds. EXTREMITIES: Warm and well perfused. BACK: No CVA tenderness. NEUROLOGICAL: Intact without focal deficits. PSYCHIATRIC: normal affect. MUSCULOSKELETAL: Normally developed with good muscle tone. Course Course 08: Previous medical records were reviewed. The patient was evaluated in room B2. A complete history and physical examination was performed. 0940: I discussed the patients case with Juany WALTER. Dr. Gaston Byers hospitalist will evaluate the patient for further management. 0943: I updated the patient and her daughter at this time. Administered Medications Discontinued Medications Albuterol (Duoneb) 3 ml NEB NOW STA Stop: 01/22/20 09:37 Last Admin: 01/22/20 10:06 Dose: 3 ml Documented by: [id number] Ertapenem (Invanz) 10 mls @ 2 mls/min IV NOW STA Stop: 01/22/20 09:01 Last Admin: 01/22/20 09:59 Dose: 2 mls/min Documented by: [id number] Medical Decision Making Differential Diagnosis Differential diagnoses includes but is not limited to pneumonia, bronchitis, COPD/Asthma exacerbation, pneumothorax, pulmonary embolism, congestive heart failure, acute coronary syndrome. Medical Records Attestation: I reviewed the patient's medical records. Home Medications Current Medication List: was personally reviewed by me Laboratory Data Attestation: I reviewed the patient's lab results. Result diagrams: 01/22/20 08:33 01/22/20 08:33 Lab Results 01/22/20 01/22/20 01/22/20 Range/Units 08:33 08:33 08:33 WBC 6.16 (4.8-10.8) K/uL RBC 4.05 L (4.2-5.4) M/uL Hgb 11.9 L (12.0-16.0) g/dL Hct 38.0 (37-47) % MCV 93.8 (80-100) fL MCH 29.4 (25-34) pg MCHC 31.3 L (32-36) g/dL RDW Std Deviation 58.0 H (36.4-46.3) fL RDW Coeff of Patrick 16.9 H (11.5-14.5) % Plt Count 119 L (130-400) K/uL MPV 11.4 H (7.4-10.4) fL Immature Gran % (Auto) 0.3 % Neut % (Auto) 68.3 % Lymph % (Auto) 18.0 % Branch % (Auto) 11.9 % Eos % (Auto) 1.3 % Baso % (Auto) 0.2 % Immature Gran # (Auto) 0.02 (0.00-0.02) K/uL Neut # (Auto) 4.21 (1.4-6.5) K/uL Lymph # (Auto) 1.11 L (1.2-3.4) K/uL Branch # (Auto) 0.73 H (0.11-0.59) K/uL Eos # (Auto) 0.08 (0-0.5) K/uL Baso # (Auto) 0.01 (0-0.2) K/uL PT 43.2 H (9.0-12.0) Seconds INR 4.7 H (0.9-1.1) APTT 47.7 H* (21.0-31.0) Seconds PTT Ratio 1.8 Sodium 137 (136-145) mmol/L Potassium 4.3 (3.5-5.1) mmol/L Chloride 96 L (98-107) mmol/L Carbon Dioxide 33 H (21-32) mmol/L Anion Gap 8.0 (3-11) BUN 66 H (7-18) mg/dl Creatinine 2.01 H (0.6-1.2) mg/dl Est Cr Clr Drug Dosing 30.0 ml/min Est GFR ( Amer) 28.4 Est GFR (Non-Af Amer) 24.5 BUN/Creatinine Ratio 32.7 H (10-20) Glucose 73 (70-99) mg/dl Calcium 8.7 (8.5-10.1) mg/dl Total Bilirubin 0.5 (0.2-1) mg/dl AST 24 (15-37) U/L ALT 19 (12-78) U/L Alkaline Phosphatase 73 (45-117) U/L Troponin I 0.050 H* (0-0.045) ng/ml Total Protein 6.6 (6.4-8.2) gm/dl Albumin 2.8 L (3.4-5.0) gm/dl Globulin 3.8 (2.5-4.0) gm/dl Albumin/Globulin Ratio 0.7 L (0.9-2) Lipase 156 (73-393) U/L Influenza Type A Ag (Neg) Influenza Type B Ag (Neg) 01/22/20 Range/Units 08:48 WBC (4.8-10.8) K/uL RBC (4.2-5.4) M/uL Hgb (12.0-16.0) g/dL Hct (37-47) % MCV (80-100) fL MCH (25-34) pg MCHC (32-36) g/dL RDW Std Deviation (36.4-46.3) fL RDW Coeff of Patrick (11.5-14.5) % Plt Count (130-400) K/uL MPV (7.4-10.4) fL Immature Gran % (Auto) % Neut % (Auto) % Lymph % (Auto) % Branch % (Auto) % Eos % (Auto) % Baso % (Auto) % Immature Gran # (Auto) (0.00-0.02) K/uL Neut # (Auto) (1.4-6.5) K/uL Lymph # (Auto) (1.2-3.4) K/uL Branch # (Auto) (0.11-0.59) K/uL Eos # (Auto) (0-0.5) K/uL Baso # (Auto) (0-0.2) K/uL PT (9.0-12.0) Seconds INR (0.9-1.1) APTT (21.0-31.0) Seconds PTT Ratio Sodium (136-145) mmol/L Potassium (3.5-5.1) mmol/L Chloride (98-107) mmol/L Carbon Dioxide (21-32) mmol/L Anion Gap (3-11) BUN (7-18) mg/dl Creatinine (0.6-1.2) mg/dl Est Cr Clr Drug Dosing ml/min Est GFR ( Amer) Est GFR (Non-Af Amer) BUN/Creatinine Ratio (10-20) Glucose (70-99) mg/dl Calcium (8.5-10.1) mg/dl Total Bilirubin (0.2-1) mg/dl AST (15-37) U/L ALT (12-78) U/L Alkaline Phosphatase (45-117) U/L Troponin I (0-0.045) ng/ml Total Protein (6.4-8.2) gm/dl Albumin (3.4-5.0) gm/dl Globulin (2.5-4.0) gm/dl Albumin/Globulin Ratio (0.9-2) Lipase (73-393) U/L Influenza Type A Ag Neg for Influ A (Neg) Influenza Type B Ag Neg for Influ B (Neg) Imaging Data Radiologist's Impression: Radiology results as stated below per my review and the radiologist's interpretation: XR chest 1V portable CLINICAL HISTORY: Chest Pain dyspnea COMPARISON STUDY: 12/21/2019 FINDINGS: Moderate stable cardiomegaly. Lungs remain grossly clear. Slight chronic interstitial prominence is noted. IMPRESSION: Moderate stable cardiomegaly. Otherwise negative study. ACT 112: Negative or not required by law. The above report was generated using voice recognition software. It may contain grammatical, syntax or spelling errors. Electronically signed by: Vinny Fernando M.D. 01/22/2020 8:14 AM ECG Data Attestation: I personally reviewed and interpreted this ECG as follows: Indication: + SOB/dyspnea Rate (beats per minute): 78 Rhythm: + atrial fibrillation ECG Intervals/blocks: + Normal QT-c ECG ST segments: no ST elevation ECG Findings: no PVCs Comparison ECG Date: from (12/21/2019) Change: no significant change Blood Pressure Blood Pressure Findings: Elevated blood pressure Blood Pressure Disposition: further management by hospitalist [facility] Narrative The patient is a 69 year old female presenting to the Emergency Department complaining of persistent shortness of breath starting 1 day ago. The patient reports that she is short of breath. She states that she feels like she is wheezing. She explains that she feels weak, light headed and dizzy. She notes that she has a cough. She adds that her chest hurts and she describes this pain as a tightness. The patient reports that she experienced these symptoms before. The patients daughter states that the patient currently resides at [facility] after being sent there from [facility] after having a stroke. The patient's test results reveal a normal CBC. BUN is 66 and creatinine is 2. Thi s is above her baseline of 1.37. Troponin is slightly elevated 0.05. Flu swab was negative. Twelve-lead EKG shows A. fib at a rate of 78. Chest x-ray was negative for acute disease. The patient was started on empiric antibiotics as she is allergic to penicillin, she was started on Invanz. The patient chest x- ray did not show a clear pneumonia. She did require 6 L of oxygen to maintain saturations in the 90s. On 3 L she was only 83% which is what she is typically on. Because of her elevated troponin and hypoxia as well as respiratory symptoms, the patient was seen by the hospitalist for further patient evaluation and care. She was ordered a DuoNeb here.. Impression & Plan Elevated troponin, Dyspnea, Acute bronchitis, Hypoxia, [id number] renal failure Discharge Plan Visit Data Chief Complaint: Shortness of Breath/Dyspnea Stated Complaint: chest pain/sob ED Provider: Luís Naranjo Discharge Problem: Elevated troponin, Dyspnea, Acute bronchitis, Hypoxia, [id number] renal failure Patient Disposition: Being Evaluated by Hospitalist Forms Stand Alone Forms: [facility] [employer] Prescriptions Prescriptions: No Action atorvastatin 40 mg Tablet 80 mg PO QAM RF: 0 cyanocobalamin (vitamin B-12) [Vitamin B-12] 1,000 mcg Tablet 1,000 mcg PO QAM RF: 0 nitroglycerin [Nitrostat] 0.4 mg Tablet, Sublingual 0.4 mg Sublingual DIRECTED PRN (Reason: Chest Pain) RF: 0 gabapentin 100 mg Capsule 300 mg PO HS RF: 0 cholecalciferol (vitamin D3) [Vitamin D3] 1,000 unit Capsule 2,000 unit PO QAM RF: 0 Lantus Solostar U-100 Insulin 100 unit/mL (3 mL) Insulin Pen 45 unit SUBCUT QAM RF: 0 spironolactone 25 mg tablet 12.5 mg PO QAM RF: 0 warfarin [Coumadin] 3 mg tablet See Rx Instructions .ROUTE .COMPLEX RF: 0 potassium chloride 10 mEq tablet extended release 10 meq PO DAILY@0800 RF: 0 metolazone 2.5 mg tablet 2.5 mg PO DIRECTED PRN (Reason: Weight Gain, SOB) RF: 0 torsemide 20 mg tablet 60 mg PO BID RF: 0 metoprolol succinate 200 mg Tablet Extended Release 24 Hr 200 mg PO DAILY@0800 RF: 0 allopurinol 100 mg Tablet 200 mg PO DAILY@0800 RF: 0 Humulin R Regular U-100 Insuln 100 unit/mL Solution 1 sliding scale dose SUBCUT USEASDIRECTD RF: 0 lidocaine [Lidoderm] 5 % Adhesive Patch,Medicated 1 patch TOPICAL QAM RF: 0 docusate sodium 100 mg Capsule 200 mg PO BID RF: 0 lisinopril 5 mg Tablet 5 mg PO DAILY@0800 RF: 0 digoxin 125 mcg (0.125 mg) Tablet 125 mcg PO DAILY RF: 0 gabapentin 100 mg capsule 100 mg PO BID RF: 0 Breo Ellipta 100-25 mcg/dose Blister With Device 1 inh INHALATION QAM RF: 0 Referrals Referrals: [facility] [Primary Care Provider] - Discharge Problem: Dyspnea Qualifiers: Dyspnea type: unspecified Qualified Code(s): R06.00 - Dyspnea, unspecified Acute bronchitis Qualifiers: Bronchitis organism: unspecified organism Qualified Code(s): J20.9 - Acute bronchitis, unspecified [id number] renal failure Qualifiers: Acute renal failure type: unspecified Chronic kidney disease stage: unspecified stage Qualified Code(s): N17.9 - Acute kidney failure, unspecified The scribe's documentation has been prepared under my direction and personally reviewed by me in its entirety. I confirm that the note above accurately reflects all work, treatment, procedures, and medical decision making performed by me.
[2020-01-22] MEDS ORDERED: ALBUT/IPRATROP 3MG/0.5MG NEB 3 ML VIAL NEB STA (09:36)
[2020-01-22 09:43] LABS: Partial Thromboplastin Time 47.7 Seconds (21.0-31.0)
[2020-01-22 09:50] LABS: INR 4.7 (0.9-1.1); Prothrombin Time 43.2 Seconds (9.0-12.0)
[2020-01-22] MEDS ORDERED: ACETAMINOPHEN 500 MG TAB PO STA (10:36)
[2020-01-22] MEDS ORDERED: FUROSEMIDE 40 MG/4 ML VIAL IV STA (11:31)
[2020-01-22 11:39] LABS: Thyroid Stimulating Hormone 3.2 uIu/ml (0.300-4.500)
--- NOTE | 2020-01-22 11:41 | History & Physical Report ---
Date of Service January 22, 2020 Assessment & Plan (1) Diastolic CHF with preserved left ventricular function, NYHA class 2: presented with hypoxia , SOB , CRUZ , orthopnea possibly due to decompensated CHF with diastolic heart failure /rt sided heart failure -chronic cxray shows pulm congestion elevated Pro BNP will order of IV LAsix 40 mg BID hold out pt PO loop diuretics ( was on Metolazone 2.5 mg PrN for wt gain /aldactone 12.5 mg daily ) , torsemide 60 mg BID ) ordered for daily wt , ordered for [place] for accurate intake of intake and out put cardiology consult requested repeat ECHO to assess LV function MILD ELEVATION OF TROPONIN : possible due to demand ischemia /type 2 NSTEMI in setting of decompensated CHF /hypoxia at present no complain of chest pain or chest heavineness monitor in tele cont diuresis as mentioned above EKG afib no acute ST-T wave changes pt will be admitted to PCU serial cardiac markers cardilogy consulted cont cardiac meds ACUTE ON CHRONIC HYPOXEMIC RESP FAILURE : baseline COPD, PULM HTN , chronic rt heart failure on home 02 2-3 L chronic pulm HTN leading to cor pulmonale with chronic rt sided heart failure presented with hypoxia, SOB , orthopena , due to decompensated CHF cont diureis for improve pulm congestion ordered for duo neb no overt infiltration noted in Cxray pt reports of cough with low grade fever po Doxyycline empirically for possible bronchitis ACUTE RENAL FAILURE WITH CKD STAGE 3 ; cr elevated from baseline pt reports of poor po intake in last few days worsening of renal perfusion due to decompensated CHF leading to poor renal perfusion hold ACEI , out pt loop diuretics -Torsemide IV Lasix 40 mg BID nephrology consulted follow BMP avoid contrast studies , NSAID's CHRONIC AFIB : chronic afib , rate controlled on Beta yessi , digoxin -continued ordered to check Dig level on coumadin for chronic anticoagulation HX OF INTRACRANIAL HGE : recent ICH after fall treated conservatively ct head non contrast shows no acute bleed NUVIA : cont CPAP at night TYPE 2 DM /INSULIN DEPENDENT : insulin SSI basal lantus pt reports of hypoglycemic episodes at rehab ordered for hb A1c pharmacy consulted for glycemic management MCC ANTICOAGULATION STATUS /ARTERIAL THROMBUS /CHRONIC AFIB : pt was taken off coumadin ( was on for chronic Afib ) after recent episode of ICH during her hospital stay on [place] pt developed acute RUE pain /was pulseless -Doppler showed Brachial artery thrombus underwent embolectomy RUTH showed PFO pt is started on Coumadin given risk of life threatening thrombus remains significantly high no Aspirin for increased bleeding risk pt is continued with Coumadin goal INR 2-3 CT head done in ER ; no evidence new bleed CODE STATUS : FULL CODE d/w patient and her POA Niece Rani DVT PROPLHYLAXIS : ON coumadin INR theraputic DISPOSITION : getting rehab at [facility] for clinical deconditioning after prolong hospital stay at [facility] for acute illness PT/OT eval return back to [facility] after completion of medication tx at [facility] fo continued rehab social service consulted for discharge planning History of Present Illness Chief Complaint: SHORTNESS OF BREATH Primary Care Provider: [facility] this is 69 yo F with complex past medical hx of CHF diastolic dysfunction (HF pEF) , chronic afib , CKD stage 3 , Type 2 DM , hx of ICH sent from [facility] rehab as pt been experiencing Shortness of breath , cough on 12/21/19 : pt sustained a fall /hitting her head -developed intraparenchymal bleed in the post limb of rt internal capsule -on coumadin for Afib pt was initially seen at [facility] ER then transferred to [facility] ICU for further care pt was discharged to [facility] rehab on 01/01/20 pt reports starting to experiencing increasing SOB , CRUZ for past few days - notably on weekend , reports of increased fatigue ,weakness, significant orthopnea , unable to lie flat at night unable to participate in PT due to SOB with minimum exertion pt reports of increased lower ext swelling, increased abdominal girth had cough with whitish sputum , low grade fever at rehab yesterday in ER , pt appears to be significantly vol overloaded , Cxray shows pulmonary congestion elevated Pro BNP pt reports of episodes of chest tightness /heaviness yesterday while experiencing severe SOB with attempt to get out of bed symptom was resolved after rest reports of dizzy spell and lightheadedness with attempt to ambulate no syncope or fall no complain of chest pain or chest heaviness now pt is afebrile on 2 L 02 via nasal canula ( pt is on chronic home 02 2 L due to baseline COPD , pulm HTN) no report of nausea /vomiting no diarrhea or loose stool no report of dark stool or blood in stool has left sided weakness, rt facial droop which been chronic since ICH on 12/21/19 Allergies Allergy/AdvReac Type Severity Reaction Status Date / Time Penicillins Allergy Mild Unknown Verified 01/22/20 09:26 rofecoxib Allergy Unknown Unknown Verified 01/22/20 09:26 sulindac Allergy Unknown Unknown Verified 01/22/20 09:26 Home Medications Home Medications Medication Instructions Recorded Confirmed Type Lantus Solostar U-100 Insulin 45 unit SUBCUT QAM 08/11/18 01/22/20 History atorvastatin 80 mg PO QAM 08/11/18 01/22/20 History cholecalciferol (vitamin D3) 2,000 unit PO QAM 08/11/18 01/22/20 History [Vitamin D3] cyanocobalamin (vitamin B-12) 1,000 mcg PO QAM 08/11/18 01/22/20 History [Vitamin B-12] gabapentin 300 mg PO HS 08/11/18 01/22/20 History nitroglycerin [Nitrostat] 0.4 mg SUBLINGUAL DIRECTED PRN 08/11/18 01/22/20 History spironolactone 12.5 mg PO QAM 01/08/19 01/22/20 History warfarin [Coumadin] See Rx Instructions .ROUTE .COMPLEX 04/24/19 01/22/20 History metolazone 2.5 mg PO DIRECTED PRN 06/17/19 01/22/20 History torsemide 60 mg PO BID 10/22/19 01/22/20 History potassium chloride 10 meq PO DAILY@0800 12/21/19 01/22/20 History allopurinol 200 mg PO DAILY@0800 01/22/20 01/22/20 History digoxin 125 mcg PO DAILY 01/22/20 01/22/20 History docusate sodium 200 mg PO BID 01/22/20 01/22/20 History fluticasone furoate-vilanterol 1 inh INHALATION QAM 01/22/20 01/22/20 History [Breo Ellipta] gabapentin 100 mg PO BID 01/22/20 01/22/20 History insulin regular human [Humulin R 1 sliding scale dose SUBCUT 01/22/20 01/22/20 History Regular U-100 Insuln] USEASDIRECTD lidocaine [Lidoderm] 1 patch TOPICAL QAM 01/22/20 01/22/20 History lisinopril 5 mg PO DAILY@0800 01/22/20 01/22/20 History metoprolol succinate 200 mg PO DAILY@0800 01/22/20 01/22/20 History Past Med/Surg History Medical History (Updated 01/23/20 @ 06:32 by Jocelin Feldman MD) Anemia (Chronic 11/27/13) Chronic atrial fibrillation (Chronic) Chronic respiratory failure with hypoxia (Chronic) CKD (chronic kidney disease) stage 3, GFR 30-59 ml/min Diabetes mellitus, type II (Chronic) Dyslipidemia (Chronic) HTN (hypertension) (Chronic) Lumbar radiculopathy (Chronic) NUVIA on CPAP (Chronic) Pickwickian syndrome (Chronic) Polymyalgia rheumatica (Chronic) Right-sided heart failure (Chronic) Tobacco use disorder (Chronic) Surgical History History of hysterectomy (Resolved) History of total knee replacement (Resolved) Family History Father Heart disease Stroke Mother Diabetes Social History Preferred Language: Ethiopian Communication Ability: Effective 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 Beliefs That Will Affect Care: None marital status: / Current Living Situation: Care Home Other Information That Helps Us Care for You: No Feels Safe at Home: Yes Safety Concerns: Feels Safe At This Time Smoking Status: Former smoker Tobacco Type: cigarettes ; Cigarettes Per Day: 10 ; Do You Dip or Chew Tobacco: No ; Second Hand Exposure: No ; Tobacco Cessation Education Requested by Patient: No Hx Alcohol Use: No Hx Substance Use: No Review of Systems Review of Systems: All systems reviewed & are unremarkable except as noted in HPI & below Constitutional: + fatigue, + weakness and + weight gain; no fever and no chills Respiratory: + cough, + dyspnea, + dyspnea on exertion, + sputum production and + wheezing Cardiovascular: + dyspnea, + dyspnea on exertion, + orthopnea, + paroxysmal nocturnal dyspnea, + lightheadedness and + edema; no syncope Gastrointestinal: no abdominal pain, no nausea and no vomiting Neurologic: + localized weakness (left sided weakness since ICH on 12/21/19 ) and + headache(s); no syncope Physical Exam Constitutional: WD/WN, vitals as above + obese; no acute distress (moderate distress due to SOB ) Eyes: PERRL, conjunctivae normal, anicteric sclerae ENMT: rt facial droop -chronic since last episode of rt sided intraparencymal hge Respiratory: + cough Auscultation: + diminished lung sounds, + crackles, + rales and + wheezes Cardiovascular: Rate/Rhythm: + abnormal rate Extremities: + calf tenderness, + pedal edema and + edema Gastrointestinal (Abdomen): Inspection/Auscultation: + abdomen distended and normal bowel sounds Percussion/Palpation: abdomen soft; abdomen nontender Musculoskeletal: left sided 4/5 weakness Upper > Lower ext : chronic since 12/21/19 Neurologic: left sided 4/5 weakness Upper > Lower ext : chronic since 12/21/19 rt facial droop , present on admission ( chronic since 12/21/19 ) Psychiatric: A+Ox3, euthymic affect Results & Data Vital Signs (Past 12 Hours) Vital Signs Temp Pulse Pulse Resp BP BP Pulse Ox 01/22/20 10:42 89 16 132/93 01/22/20 10:08 84 16 96 01/22/20 10:01 84 16 128/79 01/22/20 08:52 84 16 133/75 94 01/22/20 08:11 97 01/22/20 07:55 37.3 C 75 24 113/80 83 L Diagnostic Findings Chest Xray : Moderate stable cardiomegaly. Otherwise negative study. head CT No acute intracranial abnormality. Old small infarcts as described above.
[2020-01-22] MEDS ORDERED: GLUCOSE 40% GEL 15 GM TUBE PO PRN (11:47)
[2020-01-22] MEDS ORDERED: GLUCOSE 10 TABS/TUBE PO PRN (11:47)
[2020-01-22] MEDS ORDERED: GLUCAGON FOR INJ 1 MG VIAL SQ PRN (11:47)
[2020-01-22] MEDS ORDERED: CARBOHYDRATES FOR HYPOGLYCEMIA PO PRN (11:47)
[2020-01-22] MEDS ORDERED: PHARMACY GLYCEMIC MGMT CONSULT STA (11:47)
--- NOTE | 2020-01-22 12:25 | CT Scan Report ---
HEAD CT NONCONTRAST CT DOSE: 537.48 mGy.cm HISTORY: headache /elevated INR /hx of ICH TECHNIQUE: Multiaxial CT images of the head were performed without the use of intravenous contrast. A utomated exposure control was utilized for this study. A dose lowering technique was utilized adheri ng to the principles of ALARA. Comparison: Head CT 12/21/2019. Findings: The paranasal sinuses and mastoid air cells are clear. The calvarium and skull base are int act. Small focus of intracranial hemorrhage within the posterior limb of the right internal capsule h as resolved in the interval. 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 There is no mass, robert jeannie, midline shift, acute infarct. Impression: No acute intracranial abnormality. Old small infarcts as described above. ACT 112: Negative or not required by law. Electronically signed by: Rocky Ventura M.D. 01/22/2020 12:24 PM
[2020-01-22] MEDS ORDERED: MAGNESIUM HYDROXIDE SUSP 30 ML UDC PO PRN (12:47)
[2020-01-22] MEDS ORDERED: ONDANSETRON INJ 2 MG/ML 2 ML VIAL IV PRN (12:47)
[2020-01-22] MEDS ORDERED: DEXTROSE 50% 50 ML SYRINGE IV PRN (12:47)
[2020-01-22] MEDS ORDERED: NITROGLYCERIN SL 0.4 MG/TAB TAB SL PRN ×2 (12:47)
[2020-01-22] MEDS ORDERED: ALUMINUM/MAGNESIUM SUSP 30 ML UDC PO PRN (12:47)
[2020-01-22] MEDS ORDERED: ACETAMINOPHEN 325 MG TAB PO PRN (12:47)
[2020-01-22] MEDS ORDERED: TORSEMIDE 60 MG PO SCH ×2 (12:47→21:00)
[2020-01-22] MEDS ORDERED: POLYETHYLENE (MIRALAX) 17 GM PACK PO PRN (12:47)
[2020-01-22] MEDS ORDERED: metOLazone 2.5 MG TABLET PO PRN ×2 (12:47)
[2020-01-22 13:07] LABS: Appearance Urine Clear (Clear); Bilirubin Urine Negative (Negative); Blood Urine Negative (Negative); Color Urine Yellow; Glucose Urine UA Negative (Negative); Ketones Urine Negative (Negative); Leukocyte Esterase Urine Negative (Negative); Nitrite Urine Negative (Negative); Protein Urine Negative (Negative); Specific Gravity Urine 1.017 (1.000-1.030); Urobilinogen Urine Negative (Negative)
[2020-01-22] MEDS ORDERED: ACETAMINOPHEN W/CODEINE #3 1 TAB PO ONE (13:58)
[2020-01-22] MEDS: CYANOCOBALAMIN 500 MCG TABLET (VITAMIN B-12) PO SCH (14:17)
[2020-01-22] MEDS: GABAPENTIN 100 MG CAP PO SCH (14:17)
--- NOTE | 2020-01-22 14:51 | Electrocardiogram Report ---
Test Reason : Blood Pressure : / mmHG Vent. Rate : 078 BPM Atrial Rate : 326 BPM P-R Int : 000 ms QRS Dur : 082 ms QT Int : 368 ms P-R-T Axes : 000 046 078 degrees QTc Int : 419 ms Atrial fibrillation Abnormal ECG When compared with ECG of 21-DEC-2019 17:59, T wave inversion now evident in Lateral leads Confirmed by Tiago Hendricks ([id number]) on 01/22/2020 2:51:41 PM Referred By: REFERRED SELF Confirmed By:Clayton Hendricks
[2020-01-22] MEDS ORDERED: PERFLUTREN LIPID MICROSPHERE (DEFINITY) IV ONE (15:07)
[2020-01-22] MEDS: ALBUT/IPRATROP 3MG/0.5MG NEB 3 ML VIAL NEB SCH ×3 (15:56→23:21)
[2020-01-22] MEDS ORDERED: FUROSEMIDE 40 MG in SYRINGE 0 ML IV SCH (17:00)
--- NOTE | 2020-01-22 17:01 | Cardiology Consultation ---
Date of Consultation January 22, 2020 Assessment & Plan (1) Chronic respiratory failure with hypoxia: Current presentation appears to be mixed etiology. Exam does not suggest significant volume overload and patient has responded to initial diuresis. Echocardiogram demonstrates preserved LV systolic function with right ventricular dilatation and severe pulmonary hypertension current blood pressures well controlled Creatinine has increased in comparison to past studies question secondary to addition of lisinopril Plan continue usual medications holding lisinopril. Hold further diuresis IV after evening dose this evening. Follow-up for possible underlying respiratory infection. Continue oxygen CPAP supplementation at night (2) Chronic atrial fibrillation: Continue Toprol-XL 200 mg/day blood pressure and heart rate control (3) Acute bronchitis: Patient with nonproductive cough and wheezing responsive to nebulizer today (4) Elevated troponin: Will trend troponins though not significantly elevated given recent clinical history and LV systolic function preserved on echocardiogram (5) Hypoxia: (6) [id number] renal failure: This appears to be an acute decline. As noted we will not diurese any further examined chest x-ray did not reflect profound volume overload. Question KENTON inhibitor a component (7) NUVIA on CPAP: History of Present Illness Reason for Consultation: Dyspnea Requesting Physician: Dr Feldman Attending Physician: Jocelin Feldman MD History of Present Illness Patient is a 69-year-old female extremely complex underlying history and ongoing issues which include 1. Severe chronic obstructive lung disease/sleep apnea O2 dependent with associated cor pulmonale 2. Hypertensive heart disease and chronic diastolic dysfunction, mitral insufficiency 3. Morbid obesity 4. Severe pulmonary hypertension 5. Chronic atrial fibrillation 6. Type 2 diabetes mellitus with stage III chronic kidney disease 7. 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 Acute arterial embolism right axillary brachial status post embolectomy 12/26/2019 9. Patent foramen ovale Patient presents on referral from [facility] today. Patient felt more breathless and "like I am filling up with fluid this morning". Has been coughing as well. No dizziness or lightheadedness no orthopnea lower extremity edema not worsened. Weight is been stable per review records available. She notes no fevers or chills. Cough is present but nonproductive. No melena hematochezia dysuria hematuria. No headaches or visual changes. No chest pain or discomfort During most recent hospitalization metoprolol was titrated upward substantially for heart rate control digoxin added. Records suggest addition of lisinopril recently for hypertension control. Patient clinically improved currently after IV furosemide 40 mg and bronc hodilator nebulizer Allergies Allergy/AdvReac Type Severity Reaction Status Date / Time Penicillins Allergy Mild Unknown Verified 01/22/20 09:26 rofecoxib Allergy Unknown Unknown Verified 01/22/20 09:26 sulindac Allergy Unknown Unknown Verified 01/22/20 09:26 Home Medications Home Medications Medication Instructions Recorded Confirmed Type Lantus Solostar U-100 Insulin 45 unit SUBCUT QAM 08/11/18 01/22/20 History atorvastatin 80 mg PO QAM 08/11/18 01/22/20 History cholecalciferol (vitamin D3) 2,000 unit PO QAM 08/11/18 01/22/20 History [Vitamin D3] cyanocobalamin (vitamin B-12) 1,000 mcg PO QAM 08/11/18 01/22/20 History [Vitamin B-12] gabapentin 300 mg PO HS 08/11/18 01/22/20 History nitroglycerin [Nitrostat] 0.4 mg SUBLINGUAL DIRECTED PRN 08/11/18 01/22/20 History spironolactone 12.5 mg PO QAM 01/08/19 01/22/20 History warfarin [Coumadin] See Rx Instructions .ROUTE .COMPLEX 04/24/19 01/22/20 History metolazone 2.5 mg PO DIRECTED PRN 06/17/19 01/22/20 History torsemide 60 mg PO BID 10/22/19 01/22/20 History potassium chloride 10 meq PO DAILY@0800 12/21/19 01/22/20 History allopurinol 200 mg PO DAILY@0800 01/22/20 01/22/20 History digoxin 125 mcg PO DAILY 01/22/20 01/22/20 History docusate sodium 200 mg PO BID 01/22/20 01/22/20 History fluticasone furoate-vilanterol 1 inh INHALATION QAM 01/22/20 01/22/20 History [Breo Ellipta] gabapentin 100 mg PO BID 01/22/20 01/22/20 History insulin regular human [Humulin R 1 sliding scale dose SUBCUT 01/22/20 01/22/20 History Regular U-100 Insuln] USEASDIRECTD lidocaine [Lidoderm] 1 patch TOPICAL QAM 01/22/20 01/22/20 History lisinopril 5 mg PO DAILY@0800 01/22/20 01/22/20 History metoprolol succinate 200 mg PO DAILY@0800 01/22/20 01/22/20 History Patient History Medical History Anemia (Chronic 11/27/13) Chronic atrial fibrillation (Chronic) Chronic respiratory failure with hypoxia (Chronic) Diabetes mellitus, type II (Chronic) Dyslipidemia (Chronic) HTN (hypertension) (Chronic) Hypocalcemia (Chronic) Hypomagnesemia (Chronic) Lumbar radiculopathy (Chronic) NUVIA on CPAP (Chronic) Pickwickian syndrome (Chronic) Polymyalgia rheumatica (Chronic) Right-sided heart failure (Chronic) Tobacco use disorder (Chronic) Surgical History History of hysterectomy (Resolved) History of total knee replacement (Resolved) Family History Father Heart disease Stroke Mother Diabetes Social History Preferred Language: [place] Communication Ability: Effective 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 Beliefs That Will Affect Care: None marital status: / Current Living Situation: [facility] Other Information That Helps Us Care for You: No Feels Safe at Home: Yes Safety Concerns: Feels Safe At This Time Smoking Status: Former smoker Tobacco Type: cigarettes ; Cigarettes Per Day: 10 ; Do You Dip or Chew Tobacco: No ; Second Hand Exposure: No ; Tobacco Cessation Education Requested by Patient: No Hx Alcohol Use: No Hx Substance Use: No Review of Systems Review of Systems: All systems reviewed & are unremarkable except as noted in HPI & below Physical Exam Constitutional: well developed and + obese; no acute distress Eyes: PERRL, conjunctivae normal, anicteric sclerae ENMT: external ear and nose normal, oropharynx normal Neck: trachea midline, no thyromegaly + thick neck Respiratory: Auscultation: + diminished lung sounds Cardiovascular: Rate/Rhythm: + irregularly irregular Heart Sounds: normal S1 and normal S2; no gallop and no murmur Palpation: normal PMI Vessels: normal carotid upstroke and radial pulses present; no JVD and no carotid bruit Extremities: + edema (1+) Gastrointestinal (Abdomen): normal bowel sounds, soft, nontender, no hepatosplenomegaly Musculoskeletal: no cyanosis or clubbing, extremities motor strength 5/5 Skin: no rashes, warm and dry Neurologic: PERRL, EOMI, accommodation nl, no face palsy, no dysarthria Psychiatric: A+Ox3, euthymic affect Results & Data ([facility]) Vital Signs (Past 12 Hours) Vital Signs Temp Pulse Pulse Resp BP BP Pulse Ox 01/22/20 16:06 93 H 24 97 01/22/20 12:44 37.0 C 83 92 H 24 113/48 L 91 01/22/20 11:49 106 H 21 145/72 H 93 01/22/20 10:42 89 16 132/93 01/22/20 10:08 84 16 96 01/22/20 10:01 84 16 128/79 01/22/20 08:52 84 16 133/75 94 01/22/20 08:11 97 01/22/20 07:55 37.3 C 75 24 113/80 83 L Laboratory Results Laboratory Results - last 24 hr 01/22/20 01/22/20 01/22/20 08:33 08:33 08:33 WBC 6.16 RBC 4.05 L Hgb 11.9 L Hct 38.0 MCV 93.8 MCH 29.4 MCHC 31.3 L RDW Std Deviation 58.0 H RDW Coeff of Patrick 16.9 H Plt Count 119 L MPV 11.4 H Immature Gran % (Auto) 0.3 Neut % (Auto) 68.3 Lymph % (Auto) 18.0 [place] % (Auto) 11.9 Eos % (Auto) 1.3 Baso % (Auto) 0.2 Immature Gran # (Auto) 0.02 Neut # (Auto) 4.21 Lymph # (Auto) 1.11 L [place] # (Auto) 0.73 H Eos # (Auto) 0.08 Baso # (Auto) 0.01 PT 43.2 H INR 4.7 H APTT 47.7 H* PTT Ratio 1.8 Sodium 137 Potassium 4.3 Chloride 96 L Carbon Dioxide 33 H Anion Gap 8.0 BUN 66 H Creatinine 2.01 H Est Cr Clr Drug Dosing 30.0 Est GFR ( Amer) 28.4 Est GFR (Non-Af Amer) 24.5 BUN/Creatinine Ratio 32.7 H Glucose 73 POC Glucose Calcium 8.7 Total Bilirubin 0.5 AST 24 ALT 19 Alkaline Phosphatase 73 Troponin I 0.050 H* NT-Pro-B Natriuret Pep Total Protein 6.6 Albumin 2.8 L Globulin 3.8 Albumin/Globulin Ratio 0.7 L Lipase 156 TSH Urine Color Urine Appearance Urine pH Ur Specific [place] Urine Protein Urine Glucose (UA) Urine Ketones Urine Blood Urine Nitrite Urine Bilirubin Urine Urobilinogen Ur Leukocyte Esterase Nasal Screen MRSA (PCR) Digoxin Influenza Type A Ag Influenza Type B Ag 01/22/20 01/22/20 01/22/20 08:33 08:48 12:40 WBC RBC Hgb Hct MCV MCH MCHC RDW Std Deviation RDW Coeff of Patrick Plt Count MPV Immature Gran % (Auto) Neut % (Auto) Lymph % (Auto) [place] % (Auto) Eos % (Auto) Baso % (Auto) Immature Gran # (Auto) Neut # (Auto) Lymph # (Auto) [place] # (Auto) Eos # (Auto) Baso # (Auto) PT INR APTT PTT Ratio Sodium Potassium Chloride Carbon Dioxide Anion Gap BUN Creatinine Est Cr Clr Drug Dosing Est GFR ( Amer) Est GFR (Non-Af Amer) BUN/Creatinine Ratio Glucose POC Glucose Calcium Total Bilirubin AST ALT Alkaline Phosphatase Troponin I NT-Pro-B Natriuret Pep 2149 H Total Protein Albumin Globulin Albumin/Globulin Ratio Lipase TSH 3.200 Urine Color Yellow Urine Appearance Clear Urine pH 5.0 Ur Specific [place] 1.017 Urine Protein Negative Urine Glucose (UA) Negative Urine Ketones Negative Urine Blood Negative Urine Nitrite Negative Urine Bilirubin Negative Urine Urobilinogen Negative Ur Leukocyte Esterase Negative Nasal Screen MRSA (PCR) Digoxin Influenza Type A Ag Neg for Influ A Influenza Type B Ag Neg for Influ B 01/22/20 01/22/20 01/22/20 12:40 13:08 13:38 WBC RBC Hgb Hct MCV MCH MCHC RDW Std Deviation RDW Coeff of Patrick Plt Count MPV Immature Gran % (Auto) Neut % (Auto) Lymph % (Auto) [place] % (Auto) Eos % (Auto) Baso % (Auto) Immature Gran # (Auto) Neut # (Auto) Lymph # (Auto) [place] # (Auto) Eos # (Auto) Baso # (Auto) PT INR APTT PTT Ratio Sodium Potassium Chloride Carbon Dioxide Anion Gap BUN Creatinine Est Cr Clr Drug Dosing Est GFR ( Amer) Est GFR (Non-Af Amer) BUN/Creatinine Ratio Glucose POC Glucose 137 H Calcium Total Bilirubin AST ALT Alkaline Phosphatase Troponin I NT-Pro-B Natriuret Pep Total Protein Albumin Globulin Albumin/Globulin Ratio Lipase TSH Urine Color Urine Appearance Urine pH Ur Specific [place] Urine Protein Urine Glucose (UA) Urine Ketones Urine Blood Urine Nitrite Urine Bilirubin Urine Urobilinogen Ur Leukocyte Esterase Nasal Screen MRSA (PCR) Negative Digoxin 1.0 Influenza Type A Ag Influenza Type B Ag 01/22/20 01/22/20 13:38 17:04 WBC RBC Hgb Hct MCV MCH MCHC RDW Std Deviation RDW Coeff of Patrick Plt Count MPV Immature Gran % (Auto) Neut % (Auto) Lymph % (Auto) [place] % (Auto) Eos % (Auto) Baso % (Auto) Immature Gran # (Auto) Neut # (Auto) Lymph # (Auto) [place] # (Auto) Eos # (Auto) Baso # (Auto) PT INR APTT PTT Ratio Sodium Potassium Chloride Carbon Dioxide Anion Gap BUN Creatinine Est Cr Clr Drug Dosing Est GFR ( Amer) Est GFR (Non-Af Amer) BUN/Creatinine Ratio Glucose POC Glucose 114 H Calcium Total Bilirubin AST ALT Alkaline Phosphatase Troponin I 0.052 H* NT-Pro-B Natriuret Pep Total Protein Albumin Globulin Albumin/Globulin Ratio Lipase TSH Urine Color Urine Appearance Urine pH Ur Specific [place] Urine Protein Urine Glucose (UA) Urine Ketones Urine Blood Urine Nitrite Urine Bilirubin Urine Urobilinogen Ur Leukocyte Esterase Nasal Screen MRSA (PCR) Digoxin Influenza Type A Ag Influenza Type B Ag (1) Acute bronchitis Bronchitis organism: unspecified organism Qualified Code(s): J20.9 - Acute bronchitis, unspecified (2) [id number] renal failure Acute renal failure type: unspecified Chronic kidney disease stage: unspecified stage Qualified Code(s): N17.9 - Acute kidney failure, unspecified; N18.9 - Chronic kidney disease, unspecified
[2020-01-22] MEDS: INSULIN ASPART 100 UNITS/ML 3 ML PEN SC SCH ×2 (18:14→20:59)
[2020-01-22] MEDS: DOCUSATE SODIUM 100 MG CAP PO SCH (20:59)
[2020-01-22] MEDS: GABAPENTIN 300 MG CAP PO SCH (20:59)
[2020-01-22] MEDS ORDERED: FUROSEMIDE 40 MG/4 ML VIAL IV SCH (21:00)
--- NOTE | 2020-01-22 21:20 | Nephrology Consultation ---
Date of Consultation January 22, 2020 Assessment & Plan (1) Fkqkq-fh-vqohamx renal failure: nonoliguric acute on chronic renal failure w/ baseline creatinine 1.2-1.4 and presenting creatinine 2.0. may be profound prerenal process w/ recently introduced low dose acei and aggressive obligate diuretics as OP versus ischemic atn process w/ decreased renal perfusion from worsening HF or respiratory infection. do note that torsemide 60 mg bid and 12.5 mg daily metolazone and prn metolazone were not changed during recent hospital stays. chemistries acceptable; volume status tenuous but by history and exam improved compared to presentation. -hold ACEI -daily bmp; added mag for am -after evening lasix dose, until AM recommend lasix IV prn only -no indication at this time for renal imaging unless she continues to worsen clinically Present on Admission?: Yes History of Present Illness Reason for Consultation: HALI Requesting Physician: Dr Feldman Attending Physician: Jocelin Feldman MD History of Present Illness 69 y/o F whom I'm asked to see for HALI after she was admitted here from [facility] rehab today to evaluate worsening shortness of breath. Complex medical hx includes class 3 obesity, chronic hypoxic respiratory failure on 3L 02NC at baseline, obesity hypoventilation syndrome w/ R HF and severe plm HTN, NUVIA on CPAP, A fib on coumadin, DM on insulin, CKD 3 w/ baseline creatinine 1.2- 1.4, HL, active some day tobacco use, PVD s/p lower extremity stenting (few details available). Late last month she had first L leg weakness, then a fall: brought to [facility] and found to have intraparenchymal hemorrhage R posterior internal capsule. 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 D/c'd from there to [facility] for rehab. Brought to ER today to eval worsening volume OL, SOB, cough. Noted to have creatinine 2.0, up from baseline above. Her breathing improved w/ 40 mg IV lasix x 1 and neb tx. Cardiology is following and notes recent addition of ACEI to meds for better bp control. When I evaluated her this evening she was on her baseline 3L 02NC. Allergies Allergy/AdvReac Type Severity Reaction Status Date / Time Penicillins Allergy Mild Unknown Verified 01/22/20 09:26 rofecoxib Allergy Unknown Unknown Verified 01/22/20 09:26 sulindac Allergy Unknown Unknown Verified 01/22/20 09:26 Home Medications Home Medications Medication Instructions Recorded Confirmed Type Lantus Solostar U-100 Insulin 45 unit SUBCUT QAM 08/11/18 01/22/20 History atorvastatin 80 mg PO QAM 08/11/18 01/22/20 History cholecalciferol (vitamin D3) 2,000 unit PO QAM 08/11/18 01/22/20 History [Vitamin D3] cyanocobalamin (vitamin B-12) 1,000 mcg PO QAM 08/11/18 01/22/20 History [Vitamin B-12] gabapentin 300 mg PO HS 08/11/18 01/22/20 History nitroglycerin [Nitrostat] 0.4 mg SUBLINGUAL DIRECTED PRN 08/11/18 01/22/20 History spironolactone 12.5 mg PO QAM 01/08/19 01/22/20 History warfarin [Coumadin] See Rx Instructions .ROUTE .COMPLEX 04/24/19 01/22/20 History metolazone 2.5 mg PO DIRECTED PRN 06/17/19 01/22/20 History torsemide 60 mg PO BID 10/22/19 01/22/20 History potassium chloride 10 meq PO DAILY@0800 12/21/19 01/22/20 History allopurinol 200 mg PO DAILY@0800 01/22/20 01/22/20 History digoxin 125 mcg PO DAILY 01/22/20 01/22/20 History docusate sodium 200 mg PO BID 01/22/20 01/22/20 History fluticasone furoate-vilanterol 1 inh INHALATION QAM 01/22/20 01/22/20 History [Breo Ellipta] gabapentin 100 mg PO BID 01/22/20 01/22/20 History insulin regular human [Humulin R 1 sliding scale dose SUBCUT 01/22/20 01/22/20 History Regular U-100 Insuln] USEASDIRECTD lidocaine [Lidoderm] 1 patch TOPICAL QAM 01/22/20 01/22/20 History lisinopril 5 mg PO DAILY@0800 01/22/20 01/22/20 History metoprolol succinate 200 mg PO DAILY@0800 01/22/20 01/22/20 History Patient History Medical History (Updated 01/22/20 @ 21:53 by Rosy Lawson MD, PhD) Anemia (Chronic 11/27/13) Chronic atrial fibrillation (Chronic) Chronic respiratory failure with hypoxia (Chronic) CKD (chronic kidney disease) stage 3, GFR 30-59 ml/min Diabetes mellitus, type II (Chronic) Dyslipidemia (Chronic) HTN (hypertension) (Chronic) Lumbar radiculopathy (Chronic) NUVIA on CPAP (Chronic) Pickwickian syndrome (Chronic) Polymyalgia rheumatica (Chronic) Right-sided heart failure (Chronic) Tobacco use disorder (Chronic) Surgical History History of hysterectomy (Resolved) History of total knee replacement (Resolved) Family History Father Heart disease Stroke Mother Diabetes Social History Preferred Language: Iraqi Communication Ability: Effective Pulley Man Required: No Beliefs That Will Affect Care: None marital status: / Current Living Situation: Detention Other Information That Helps Us Care for You: No Feels Safe at Home: Yes Safety Concerns: Feels Safe At This Time Smoking Status: Former smoker Tobacco Type: cigarettes ; Cigarettes Per Day: 10 ; Do You Dip or Chew Tobacco: No ; Second Hand Exposure: No ; Tobacco Cessation Education Requested by Patient: No Hx Alcohol Use: No Hx Substance Use: No Review of Systems Review of Systems: All systems reviewed & are unremarkable except as noted in HPI & below Respiratory: as per Subjective / HPI, + cough, + dyspnea and + wheezing; no hemoptysis and no pain on inspiration Cardiovascular: + dyspnea at rest, + orthopnea and + edema (worse lately); no chest pain Genitourinary: no dysuria and no difficulty urinating Musculoskeletal: + joint pain (c/o BL knee pain) Neurologic: + falls (w/ recent stroke) and + localized weakness (L leg w/ recent stroke) Physical Exam Constitutional: well developed, + morbidly obese and cooperative; no acute distress Eyes: EOM intact bilaterally ENMT: Ears: no external ear abnormality Nose: no external nose abnormality Mouth: + dry oral mucous membranes Neck: no nuchal rigidity Respiratory: + labored breathing (slightly) and + cough (dry) Auscultation: + diminished lung sounds; no crackles, no rhonchi and no wheezes Cardiovascular: Rate/Rhythm: regular rate and regular rhythm Extremities: + edema (trace BL pretibial) Gastrointestinal (Abdomen): Inspection/Auscultation: normal bowel sounds Percussion/Palpation: abdomen soft; abdomen nontender Musculoskeletal: Extremities: strength 5/5 throughout Skin: no rashes, warm and dry Neurologic: yeung, fluent speech, no tremor Psychiatric: A+Ox3, euthymic affect Genitourinary: ocampo w/ ample clear urine Results & Data Vital Signs (Past 12 Hours) Vital Signs Temp Pulse Pulse Resp BP BP Pulse Ox 01/22/20 20:58 104 H 24 94 01/22/20 20:30 37.3 C 98 H 28 H 105/66 91 01/22/20 17:46 92 H 19 131/63 92 01/22/20 16:46 87 20 119/88 94 01/22/20 16:06 93 H 24 97 01/22/20 15:47 83 19 133/64 92 01/22/20 12:44 37.0 C 83 92 H 24 113/48 L 91 01/22/20 11:49 106 H 21 145/72 H 93 01/22/20 10:42 89 16 132/93 01/22/20 10:08 84 16 96 01/22/20 10:01 84 16 128/79 Laboratory Results 01/22/20 08:33 01/22/20 08:33 UA 1017 sg and bland sediment INR 4.7 Diagnostic Findings cxr Moderate stable cardiomegaly. Otherwise negative study. head CT No acute intracranial abnormality. Old small infarcts as described above. (1) Avwoz-hr-ohdnkme renal failure Acute renal failure type: unspecified Chronic kidney disease stage: unspecified stage Qualified Code(s): N17.9 - Acute kidney failure, unspecified; N18.9 - Chronic kidney disease, unspecified
[2020-01-23] MEDS: ALBUT/IPRATROP 3MG/0.5MG NEB 3 ML VIAL NEB SCH ×6 (02:31→23:45)
[2020-01-23 04:51] LABS: Mean Platelet Volume 10.3 fL (7.4-10.4); Platelet Count 102 K/uL (130-400)
[2020-01-23 05:11] LABS: Prothrombin Time 51.3 Seconds (9.0-12.0)
[2020-01-23 05:12] LABS: Albumin Level 2.8 gm/dl (3.4-5.0); Calcium 8.6 mg/dl (8.5-10.1); Est GFR (African American) 38.9; Est GFR (Non-African American) 33.6; Magnesium 2.1 mg/dl (1.8-2.4); Potassium 4.3 mmol/L (3.5-5.1)
[2020-01-23 05:17] LABS: Albumin Globulin Ratio 0.8 (0.9-2); Bilirubin Direct 0.1 mg/dl (0-0.2); Bilirubin,Total 0.4 mg/dl (0.2-1); Globulin 3.5 gm/dl (2.5-4.0); INR 5.7 (0.9-1.1); Total Protein 6.3 gm/dl (6.4-8.2)
[2020-01-23 05:18] LABS: Hematocrit (blood only) 38.1 % (37-47); Hemoglobin 11.8 g/dL (12.0-16.0); Mean Corpuscular Hemoglobin 29.2 pg (25-34); Mean Corpuscular Volume 94.3 fL (80-100); RDW Coefficient of Variation 16.9 % (11.5-14.5); RDW Standard Deviation 58.4 fL (36.4-46.3); Red Blood Count 4.04 M/uL (4.2-5.4); White Blood Count 5.21 K/uL (4.8-10.8)
[2020-01-23 05:19] LABS: Basophils # (auto) 0.01 K/uL (0-0.2); Basophils % (auto) 0.2 %; Eosinophils # (auto) 0.05 K/uL (0-0.5); Immature Granulocytes # (auto) 0.03 K/uL (0.00-0.02); Immature Granulocytes % (auto) 0.6 %; Lymphocytes # (auto) 1.08 K/uL (1.2-3.4); Lymphocytes % (auto) 20.7 %; Monocytes # (auto) 0.66 K/uL (0.11-0.59); Monocytes % (auto) 12.7 %; Neutrophils # (auto) 3.38 K/uL (1.4-6.5); Neutrophils % (auto) 64.8 %; Ovalocytes 1+
[2020-01-23 06:36] LABS: Estimated Average Glucose 212 mg/dl
--- NOTE | 2020-01-23 07:14 | XRay Report ---
XR chest 1V portable HISTORY: 69 years-old Female CHF acute shortness of breath with congestive heart failure COMPARISON: Chest radiograph 01/22/2020 TECHNIQUE: Portable AP view of the chest FINDINGS: Cardiac silhouette is enlarged. Similar to slightly improved pulmonary vascular congestion. Calcified plaque of the thoracic aortic arch. No pneumothorax, pleural effusion or airspace consolidation typi samira for pneumonia. Minimal bibasilar and left midlung atelectasis. Degenerative changes of the should ers and spine. IMPRESSION: Cardiomegaly with stable to mildly improved pulmonary vascular congestion. ACT 112: Negative or not required by law. The above report was generated using voice recognition software. It may contain grammatical, syntax o r spelling errors. Electronically signed by: Chris Vu M.D. 01/23/2020 7:13 AM
[2020-01-23] MEDS ORDERED: lisinopriL 5 MG TAB PO SCH ×2 (08:00)
[2020-01-23] MEDS ORDERED: POTASSIUM CHLORIDE 10 MEQ TABCR PO SCH (08:00)
[2020-01-23] MEDS: LIDOCAINE 5% 1 PATCH TD SCH (08:07)
[2020-01-23] MEDS: allopurinoL 100 MG TAB PO SCH (08:08)
[2020-01-23] MEDS: METOPROLOL SUCC 50MG EXT REL TAB PO SCH (08:08)
[2020-01-23] MEDS: ATORVASTATIN 40 MG TAB PO SCH (08:09)
[2020-01-23] MEDS: GABAPENTIN 100 MG CAP PO SCH ×2 (08:10→12:43)
[2020-01-23] MEDS: CYANOCOBALAMIN 500 MCG TABLET (VITAMIN B-12) PO SCH (08:10)
[2020-01-23] MEDS: INSULIN GLARGINE SOLOSTAR 100 UNITS/ML 3 ML PEN SQ SCH (08:10)
[2020-01-23] MEDS: FLUTICASONE/VILANTEROL 100/25MCG 14 PUFFS/INHALER INH SCH (08:12)
[2020-01-23] MEDS: POTASSIUM CHLORIDE 10 MEQ TABCR PO SCH (08:13)
[2020-01-23] MEDS: INSULIN ASPART 100 UNITS/ML 3 ML PEN SC SCH ×4 (08:16→20:04)
[2020-01-23] MEDS: CHOLECALCIFEROL 1,000 UNITS 25 MCG TAB PO SCH (08:18)
[2020-01-23] MEDS: DOCUSATE SODIUM 100 MG CAP PO SCH ×2 (08:29→20:06)
[2020-01-23] MEDS ORDERED: SPIRONOLACTONE 25 MG TAB PO SCH ×2 (09:00)
[2020-01-23] MEDS: DOXYCYCLINE HYCLATE 100 MG CAP PO SCH ×2 (14:46→20:02)
--- NOTE | 2020-01-23 15:03 | Nephrology Progress Note ---
Date of Service January 23, 2020 Assessment & Plan (1) Hrodl-ai-hytuzdq renal failure: nonoliguric acute on chronic renal failure w/ baseline creatinine 1.2-1.4 and presenting creatinine 2.0. nonoliguric prerenal HALI improving; likely from ongoing stable OP diuretics +/- recently introduced (but low dose) acei. do note that torsemide 60 mg bid and 12.5 mg daily metolazone and prn metolazone were not changed during recent hospital stays. chemistries acceptable; volume status tenuous but by history and exam improved compared to presentation. -cont to hold ACEI -daily bmp; mag ok -last lasix dose last evening; now will start lasix 30 mg IV 2 doses today, then starting tomorrow 30 mg at 0600, noon, 1800 IV -look to remove ocampo on 01/24 if all is stable; could do today as well -strict I/O; low Na diet -no indication at this time for renal imaging unless she continues to worsen cl inically Admission and Anticipated Discharge Date Admission Date: January 22, 2020 Subjective seen on rounds this am and up in chair on 02NC. no c/o worsenign sob or edema. stable ongoing L leg weakness; no issues w/ ocampo or n/v. Review of Systems Review of Systems: All systems reviewed & are unremarkable except as noted in HPI & below Physical Exam Constitutional: well developed, + morbidly obese and cooperative; no acute distress up in chair on 3LNC Eyes: EOM intact bilaterally ENMT: Ears: no external ear abnormality Nose: no external nose abnormality Mouth: + dry oral mucous membranes Neck: no nuchal rigidity Respiratory: + labored breathing (slightly); no cough (none today) Auscultation: + diminished lung sounds; no crackles, no rhonchi and no wheezes Cardiovascular: Rate/Rhythm: regular rate and regular rhythm Extremities: + edema (trace BL pretibial) Gastrointestinal (Abdomen): Inspection/Auscultation: normal bowel sounds Percussion/Palpation: abdomen soft; abdomen nontender Musculoskeletal: Extremities: strength 5/5 throughout Skin: no rashes, warm and dry Neurologic: yeung, fluent speech Psychiatric: A+Ox3, euthymic affect Results & Data ([facility]) Vital Signs (Past 12 Hours) Vital Signs Temp Pulse Pulse Resp BP BP Pulse Ox 01/23/20 13:50 90 01/23/20 12:00 94 H 23 01/23/20 11:11 100 H 18 96 01/23/20 11:00 110 H 19 01/23/20 10:00 106 H 22 01/23/20 09:01 119 H 17 105/71 94 01/23/20 08:59 122 H 20 161/70 H 01/23/20 08:04 37.3 C 110 H 25 H 145/82 H 94 01/23/20 07:19 109 H 20 98 01/23/20 03:20 37.7 C H 97 H 22 128/97 97 Laboratory Results 01/23/20 04:30 01/23/20 04:30 (1) Rqtqf-re-szkcnje renal failure Acute renal failure type: unspecified Chronic kidney disease stage: unspecified stage Qualified Code(s): N17.9 - Acute kidney failure, unspecified; N18.9 - Chronic kidney disease, unspecified
[2020-01-23] MEDS ORDERED: FUROSEMIDE 30 MG in SYRINGE 0 ML IV ONE ×2 (15:15→20:00)
--- NOTE | 2020-01-23 16:19 | Cardiology Progress Note ---
Date of Service January 23, 2020 Assessment & Plan (1) Chronic respiratory failure with hypoxia: Current presentation appears to be mixed etiology. Exam does not suggest significant volume overload and patient has responded to initial diuresis. Echocardiogram demonstrates preserved LV systolic function with right ventricular dilatation and severe pulmonary hypertension current blood pressures well controlled Creatinine has increased in comparison to past studies question secondary to a ddition of lisinopril Plan we will follow clinical course as already outlined with diuretics initiated. No profound volume overload or acute ischemia. Heart rates mostly controlled on substantial dosing of metoprolol. This may require further upward titration will fallen off (2) Chronic atrial fibrillation: Continue Toprol-XL 200 mg/day blood pressure and heart rate control (3) Acute bronchitis: Patient with nonproductive cough and wheezing responsive to nebulizer today (4) Elevated troponin: Troponins remain flat without evidence of evolution to suggest acute ischemia (5) Hypoxia: (6) Laify-oo-fmseequ renal failure: Creatinine improved slightly today appreciate nephrology input with resumption of diuretics (7) NUVIA on CPAP: Subjective Patient seen and examined, chart, medications, telemetry reviewed. At time of examination patient was sitting out of bed in chair without complaint. Respiratory status slightly improved. No dizziness or lightheadedness still wi th wheezy cough Physical Exam Constitutional: well developed and + obese; no acute distress Eyes: PERRL, conjunctivae normal, anicteric sclerae ENMT: external ear and nose normal, oropharynx normal Neck: trachea midline, no thyromegaly + thick neck Respiratory: Auscultation: + diminished lung sounds Cardiovascular: Rate/Rhythm: + irregularly irregular Heart Sounds: normal S1 and normal S2; no gallop and no murmur Palpation: normal PMI Vessels: normal carotid upstroke and radial pulses present; no JVD and no carotid bruit Extremities: + edema (1+) Gastrointestinal (Abdomen): normal bowel sounds, soft, nontender, no hepatosplenomegaly Musculoskeletal: no cyanosis or clubbing, extremities motor strength 5/5 Skin: no rashes, warm and dry Neurologic: PERRL, EOMI, accommodation nl, no face palsy, no dysarthria Psychiatric: A+Ox3, euthymic affect Results & Data Vital Signs (Past 12 Hours) Vital Signs Temp Pulse Pulse Resp BP Pulse Ox 01/23/20 14:59 85 20 94 01/23/20 13:50 90 01/23/20 12:47 37.1 C 93 H 20 105/71 94 01/23/20 12:00 94 H 23 01/23/20 11:11 100 H 18 96 01/23/20 11:00 110 H 19 01/23/20 10:00 106 H 22 01/23/20 09:01 119 H 17 105/71 94 01/23/20 08:59 122 H 20 161/70 H 01/23/20 08:04 37.3 C 110 H 25 H 145/82 H 94 01/23/20 07:19 109 H 20 98 Laboratory Results Laboratory Results - last 24 hr 01/22/20 01/22/20 01/22/20 17:04 19:39 20:53 WBC RBC Hgb Hct MCV MCH MCHC RDW Std Deviation RDW Coeff of Patrick Plt Count MPV Immature Gran % (Auto) Neut % (Auto) Lymph % (Auto) Cassia % (Auto) Eos % (Auto) Baso % (Auto) Immature Gran # (Auto) Neut # (Auto) Lymph # (Auto) Cassia # (Auto) Eos # (Auto) Baso # (Auto) Ovalocytes PT INR Sodium Potassium Chloride Carbon Dioxide Anion Gap BUN Creatinine Est Cr Clr Drug Dosing Est GFR ( Amer) Est GFR (Non-Af Amer) BUN/Creatinine Ratio Glucose POC Glucose 114 H 122 H Estimat Average Glucose Hemoglobin A1c Calcium Magnesium Total Bilirubin Direct Bilirubin AST ALT Alkaline Phosphatase Troponin I 0.049 H* Total Protein Albumin Globulin Albumin/Globulin Ratio Triglycerides Cholesterol LDL Cholesterol, Calc VLDL Cholesterol, Calc HDL Cholesterol Cholesterol/HDL Ratio 01/23/20 01/23/20 01/23/20 04:30 04:30 04:30 WBC 5.21 RBC 4.04 L Hgb 11.8 L Hct 38.1 MCV 94.3 MCH 29.2 MCHC 31.0 L RDW Std Deviation 58.4 H RDW Coeff of Patrick 16.9 H Plt Count 102 L MPV 10.3 Immature Gran % (Auto) 0.6 Neut % (Auto) 64.8 Lymph % (Auto) 20.7 Cassia % (Auto) 12.7 Eos % (Auto) 1.0 Baso % (Auto) 0.2 Immature Gran # (Auto) 0.03 H Neut # (Auto) 3.38 Lymph # (Auto) 1.08 L Cassia # (Auto) 0.66 H Eos # (Auto) 0.05 Baso # (Auto) 0.01 Ovalocytes 1+ PT 51.3 H INR 5.7 H* Sodium 138 Potassium 4.3 Chloride 101 Carbon Dioxide 34 H Anion Gap 3.0 BUN 68 H Creatinine 1.55 H D Est Cr Clr Drug Dosing 39.0 Est GFR ( Amer) 38.9 Est GFR (Non-Af Amer) 33.6 BUN/Creatinine Ratio 44.0 H Glucose 120 H POC Glucose Estimat Average Glucose Hemoglobin A1c Calcium 8.6 Magnesium 2.1 Total Bilirubin 0.4 Direct Bilirubin 0.1 AST 20 ALT 18 Alkaline Phosphatase 73 Troponin I Total Protein 6.3 L Albumin 2.8 L Globulin 3.5 Albumin/Globulin Ratio 0.8 L Triglycerides 137 Cholesterol 97 LDL Cholesterol, Calc 51 VLDL Cholesterol, Calc 27 HDL Cholesterol 19 Cholesterol/HDL Ratio 5 01/23/20 01/23/20 01/23/20 04:30 04:30 07:30 WBC RBC Hgb Hct MCV MCH MCHC RDW Std Deviation RDW Coeff of Patrick Plt Count MPV Immature Gran % (Auto) Neut % (Auto) Lymph % (Auto) Cassia % (Auto) Eos % (Auto) Baso % (Auto) Immature Gran # (Auto) Neut # (Auto) Lymph # (Auto) Cassia # (Auto) Eos # (Auto) Baso # (Auto) Ovalocytes PT INR Sodium Potassium Chloride Carbon Dioxide Anion Gap BUN Creatinine Est Cr Clr Drug Dosing Est GFR ( Amer) Est GFR (Non-Af Amer) BUN/Creatinine Ratio Glucose POC Glucose 120 H Estimat Average Glucose 212 Hemoglobin A1c 9.0 H Calcium Magnesium Total Bilirubin Direct Bilirubin AST ALT Alkaline Phosphatase Troponin I 0.045 Total Protein Albumin Globulin Albumin/Globulin Ratio Triglycerides Cholesterol LDL Cholesterol, Calc VLDL Cholesterol, Calc HDL Cholesterol Cholesterol/HDL Ratio 01/23/20 01/23/20 11:38 16:17 WBC RBC Hgb Hct MCV MCH MCHC RDW Std Deviation RDW Coeff of Patrick Plt Count MPV Immature Gran % (Auto) Neut % (Auto) Lymph % (Auto) Cassia % (Auto) Eos % (Auto) Baso % (Auto) Immature Gran # (Auto) Neut # (Auto) Lymph # (Auto) Cassia # (Auto) Eos # (Auto) Baso # (Auto) Ovalocytes PT INR Sodium Potassium Chloride Carbon Dioxide Anion Gap BUN Creatinine Est Cr Clr Drug Dosing Est GFR ( Amer) Est GFR (Non-Af Amer) BUN/Creatinine Ratio Glucose POC Glucose 164 H 138 H Estimat Average Glucose Hemoglobin A1c Calcium Magnesium Total Bilirubin Direct Bilirubin AST ALT Alkaline Phosphatase Troponin I Total Protein Albumin Globulin Albumin/Globulin Ratio Triglycerides Cholesterol LDL Cholesterol, Calc VLDL Cholesterol, Calc HDL Cholesterol Cholesterol/HDL Ratio (1) Acute bronchitis Bronchitis organism: unspecified organism Qualified Code(s): J20.9 - Acute bronchitis, unspecified (2) Icugx-ag-opgxghc renal failure Acute renal failure type: unspecified Chronic kidney disease stage: unspecified stage Qualified Code(s): N17.9 - Acute kidney failure, unspecified; N18.9 - Chronic kidney disease, unspecified
[2020-01-23] MEDS: DIGOXIN 0.125 MG TAB PO SCH (16:27)
--- NOTE | 2020-01-23 18:03 | Hospitalist Progress Note ---
Date of Service January 23, 2020 Assessment & Plan (1) Chronic respiratory failure with hypoxia: Chronic respiratory failure with hypoxia-patient is a poor historian, continues on doxycycline and supportive care for presumed bronchitis in addition to Lasix for possible fluid overload that was present on admission. She is euvolemic on exam today and clinically is improved, feeling better per her report. Echocardiogram demonstrates preserved left ventricular function with right ventricular dilation and severe pulmonary hypertension. Appreciate continued cardiology recommendations. (2) Acute bronchitis: continue empiric doxycycline and supportive care efforts. Denies cough, fevers, chills or SOB at this time. (3) Adpqr-ow-ieftahl renal failure: hold lisinopril, continue Lasix with decreased dose per nephrology. DC Jackson per patient request and okay with renal. Daily BMP (4) Demand ischemia: no further ischemic workup at this time. (5) Chronic atrial fibrillation: See below the patient has a recent history of brachial artery thrombus during her hospitalization within the last couple of months. She had been taken off of Coumadin which she was taking for chronic atrial fibrillation after a recent episode of intracranial hemorrhage. She underwent embolectomy and a RUTH revealed a PFO. She was restarted on Coumadin given the risk of life- threatening thrombus that was significantly high. Aspirin was held recent (6) Current use of fpc anticoagulation: Recent hospitalization for ICH where coumadin was held and she subsequently developed a brachial artery thrombus. A RUTH revealed a PFO and she was placed back on coumadin. ASA was not given so as not to add to bleeding risk. She currently has a supratherapeutic INR, so this is being held. INR daily. (7) Supratherapeutic INR: no active bleeding. INR ata today to 5.6. Cont to hold coumadin and trend in am. (8) NUVIA on CPAP: CPAP QHS-patient reports consistency with this at home. (9) Morbid obesity: (10) DVT prophylaxis: Supratherapeutic INR Full Code Dispo-uncertain at this time. Pending PT and OT input. Ana Hairston DO [facility] Hospitalist Admission and Anticipated Discharge Date Admission Date: January 22, 2020 Subjective feeling well, reports she is now breathing at baseline. nonproductive cough that was reported for two days has resolved. Per nursing staff she was unstady on her feet while getting up to use the restroom today. She has been in and out of multiple facilities over the past month and appears deconditioned. Typically lives alone and niece lives across the street and helps her out, but patient reports that she does all her own cooking. Review of Systems Review of Systems: All systems reviewed & are unremarkable except as noted in Subjective Physical Exam Physical Exam: CONSTITUTIONAL: obese, vitals as above, generally well- appearing EYES: normal conjunctivae, no scleral icterus ENT: MMM RESPIRATORY: clear to auscultation bilaterally, no crackles, rales or wheezes, normal respiratory effort CARDIOVASCULAR: regular rate and rhythm, S1 and 2 heard without murmurs, gallops or rubs, no JVD, no peripheral edema, erythroderma to bilateral lower extremities distally GASTROINTESTINAL: soft, obese, nontender, nondistended MUSCULOSKELETAL: appears generally weak and deconditioned. SKIN: warm and dry NEUROLOGIC: CN 2-12 grossly intact, no gross focal deficits. PSYCHIATRIC: awake and following instructions. she is answering questions appropriately but is a poor historian. Results & Data ([facility]) Vital Signs (Past 12 Hours) Vital Signs Temp Pulse Pulse Resp BP Pulse Ox Pulse Ox 01/23/20 16:27 96 H 01/23/20 16:00 96 01/23/20 14:59 85 20 94 01/23/20 13:50 90 01/23/20 12:47 37.1 C 93 H 20 105/71 94 01/23/20 12:00 94 H 23 01/23/20 11:11 100 H 18 96 01/23/20 11:00 110 H 19 01/23/20 10:00 106 H 22 01/23/20 09:01 119 H 17 105/71 94 01/23/20 08:59 122 H 20 161/70 H 01/23/20 08:04 37.3 C 110 H 25 H 145/82 H 94 01/23/20 07:19 109 H 20 98 Laboratory Results Short CBC 01/23/20 Range/Units 04:30 WBC 5.21 (4.8-10.8) K/uL Hgb 11.8 L (12.0-16.0) g/dL Hct 38.1 (37-47) % Plt Count 102 L (130-400) K/uL BMP 01/23/20 04:30 Sodium 138 Potassium 4.3 Chloride 101 Carbon Dioxide 34 H BUN 68 H Creatinine 1.55 H D Glucose 120 H Calcium 8.6 Cardiac Enzymes 01/22/20 01/23/20 Range/Units 19:39 04:30 Troponin I 0.049 H* 0.045 (0-0.045) ng/ml Liver Function 01/23/20 Range/Units 04:30 Total Bilirubin 0.4 (0.2-1) mg/dl Direct Bilirubin 0.1 (0-0.2) mg/dl AST 20 (15-37) U/L ALT 18 (12-78) U/L Alkaline Phosphatase 73 (45-117) U/L Albumin 2.8 L (3.4-5.0) gm/dl Medications Administered Current Inpatient Medications Acetaminophen (Tylenol) 650 mg PO Q4H PRN PRN Reason: Pain or Fever Stop: 02/21/20 12:46 Al Hydrox/Mg Hydrox/Simethicone (Maalox) 15 ml PO Q4H PRN PRN Reason: Dyspepsia Stop: 02/21/20 12:46 Albuterol (Duoneb) 3 ml NEB Q4R [facility] Stop: 02/21/20 14:59 Last Admin: 01/23/20 14:59 Dose: 3 ml Documented by: Allopurinol (Zyloprim) 200 mg PO DAILY@0800 [facility] Stop: 02/22/20 07:59 Last Admin: 01/23/20 08:08 Dose: 200 mg Documented by: Atorvastatin Calcium (Lipitor) 80 mg PO QAM [facility] Stop: 02/22/20 08:59 Last Admin: 01/23/20 08:09 Dose: 80 mg Documented by: Cyanocobalamin (Vitamin B-12) 1,000 mcg PO DAILY [facility] Stop: 02/21/20 08:59 Last Admin: 01/23/20 08:10 Dose: 1,000 mcg Documented by: Dextrose (Dextrose 50%) 25 - 50 ml IV UD PRN; Protocol PRN Reason: Hypoglycemia Protocol Stop: 02/21/20 12:46 Digoxin (Lanoxin) 0.125 mg PO DAILY@1600 [facility] Stop: 02/22/20 15:59 Last Admin: 01/23/20 16:27 Dose: 0.125 mg Documented by: Docusate Sodium (Colace) 200 mg PO BID [facility] Stop: 02/21/20 20:59 Last Admin: 01/23/20 08:29 Dose: 200 mg Documented by: Doxycycline Hyclate (Vibramycin) 100 mg PO BID [facility] Stop: 01/30/20 08:59 Last Admin: 01/23/20 14:46 Dose: 100 mg Documented by: Fluticasone/Vilanterol (Breo Ellipta 100/25 Mcg Inh) 1 puffs INH QAM [facility] Stop: 02/22/20 08:59 Last Admin: 01/23/20 08:12 Dose: 1 puffs Documented by: Gabapentin (Neurontin) 300 mg PO HS [facility] Stop: 02/21/20 20:59 Last Admin: 01/22/20 20:59 Dose: 300 mg Documented by: Gabapentin (Neurontin) 100 mg PO BID@0900,1400 [facility] Stop: 02/21/20 13:59 Last Admin: 01/23/20 12:43 Dose: 100 mg Documented by: Glucagon (Glucagen) 1 mg SQ UD PRN; Protocol PRN Reason: Hypoglycemia Protocol Stop: 02/21/20 11:46 Glucose (Dex4 Glucose) 4 - 8 tabs PO UD PRN; Protocol PRN Reason: Hypoglycemia Protocol Stop: 02/21/20 11:46 Glucose (Glucose 40%) 15 - 30 gm PO UD PRN; Protocol PRN Reason: Hypoglycemia Protocol Stop: 02/21/20 11:46 Furosemide 30 mg/ Syringe 3 mls @ 4 mls/min IV TODAY@2000 [facility] Stop: 01/23/20 20:01 Furosemide 30 mg/ Syringe 3 mls @ 4 mls/min IV TID@0600,1200,1800 [facility] Stop: 01/24/20 18:01 Insulin Aspart (Novolog Flexpen) 0 units SC ACHS [facility] Stop: 02/21/20 16:29 Last Admin: 01/23/20 17:12 Dose: 3 units Documented by: Insulin Glargine (Lantus Solostar Pen) 45 units SQ QAM [facility] Stop: 02/22/20 08:59 Last Admin: 01/23/20 08:10 Dose: 45 units Documented by: Lidocaine (Lidoderm 5%) 1 patch TD QAM [facility] Stop: 02/22/20 08:59 Last Admin: 01/23/20 08:07 Dose: 1 patch Documented by: Magnesium Hydroxide (Milk Of Magnesia) 30 ml PO Q12H PRN PRN Reason: Constipation Stop: 02/21/20 12:46 Metoprolol Succinate (Toprol Xl) 200 mg PO DAILY@0800 [facility] Stop: 02/22/20 07:59 Last Admin: 01/23/20 08:08 Dose: 200 mg Documented by: Miscellaneous (Carbohydrates For Hypoglycemia) 15 - 30 gm PO UD PRN PRN Reason: Hypoglycemia Protocol Stop: 02/21/20 11:46 Miscellaneous (Remove Lidoderm Patch) 1 ea N/A DAILY@2100 [facility] Stop: 02/21/20 20:59 Last Admin: 01/22/20 21:05 Dose: 1 ea Documented by: Nitroglycerin (Nitrostat) 0.4 mg SL UD PRN PRN Reason: Chest Pain Stop: 02/21/20 12:46 Ondansetron HCl (Zofran) 4 mg IV Q6H PRN PRN Reason: Nausea Stop: 02/21/20 12:46 Polyethylene Glycol (Miralax Powder Packet) 17 gm PO DAILY PRN PRN Reason: Constipation Stop: 02/21/20 12:46 Potassium Chloride (Klor-Con M10) 10 meq PO DAILY@0800 [facility] Stop: 02/22/20 07:59 Last Admin: 01/23/20 08:13 Dose: 10 meq Documented by: Vitamin D (Vitamin D3) 2,000 units PO QAM [facility] Stop: 02/22/20 08:59 Last Admin: 01/23/20 08:18 Dose: 2,000 units Documented by: (1) Acute bronchitis Bronchitis organism: unspecified organism Qualified Code(s): J20.9 - Acute bronchitis, unspecified (2) Efyeo-dw-fjyczlz renal failure Acute renal failure type: unspecified Chronic kidney disease stage: unspecified stage Qualified Code(s): N17.9 - Acute kidney failure, unspecified; N18.9 - Chronic kidney disease, unspecified
[2020-01-23] MEDS: GABAPENTIN 300 MG CAP PO SCH (20:03)
[2020-01-24] MEDS: ALBUT/IPRATROP 3MG/0.5MG NEB 3 ML VIAL NEB SCH ×6 (02:30→23:03)
[2020-01-24] MEDS: FUROSEMIDE 30 MG in SYRINGE 0 ML IV SCH ×3 (06:11→17:13)
[2020-01-24] MEDS: INSULIN ASPART 100 UNITS/ML 3 ML PEN SC SCH ×4 (08:22→20:19)
[2020-01-24] MEDS: INSULIN GLARGINE SOLOSTAR 100 UNITS/ML 3 ML PEN SQ SCH (08:25)
[2020-01-24] MEDS: FLUTICASONE/VILANTEROL 100/25MCG 14 PUFFS/INHALER INH SCH (08:26)
[2020-01-24] MEDS: LIDOCAINE 5% 1 PATCH TD SCH (08:28)
[2020-01-24] MEDS: GABAPENTIN 100 MG CAP PO SCH ×2 (08:30→13:25)
[2020-01-24] MEDS: ATORVASTATIN 40 MG TAB PO SCH (08:33)
[2020-01-24] MEDS: CYANOCOBALAMIN 500 MCG TABLET (VITAMIN B-12) PO SCH (08:34)
[2020-01-24] MEDS: allopurinoL 100 MG TAB PO SCH (08:34)
[2020-01-24] MEDS: CHOLECALCIFEROL 1,000 UNITS 25 MCG TAB PO SCH (08:34)
[2020-01-24] MEDS: METOPROLOL SUCC 50MG EXT REL TAB PO SCH (08:34)
[2020-01-24] MEDS: DOCUSATE SODIUM 100 MG CAP PO SCH ×2 (08:35→20:18)
[2020-01-24] MEDS: DOXYCYCLINE HYCLATE 100 MG CAP PO SCH ×2 (08:35→20:15)
[2020-01-24 09:26] LABS: Hematocrit (blood only) 38.5 % (37-47); Hemoglobin 11.9 g/dL (12.0-16.0); INR 3.5 (0.9-1.1); Mean Corpuscular Hemoglobin 29.2 pg (25-34); Mean Corpuscular Hgb Conc 30.9 g/dL (32-36); Mean Corpuscular Volume 94.4 fL (80-100); Mean Platelet Volume 10.1 fL (7.4-10.4); Platelet Count 112 K/uL (130-400); Prothrombin Time 32.5 Seconds (9.0-12.0); RDW Coefficient of Variation 16.8 % (11.5-14.5); Red Blood Count 4.08 M/uL (4.2-5.4); White Blood Count 4.44 K/uL (4.8-10.8)
[2020-01-24 09:49] LABS: Alanine Aminotransferase 14 U/L (12-78); Albumin Level 2.8 gm/dl (3.4-5.0); Aspartate Aminotransferase 16 U/L (15-37); BUN Creatinine Ratio 55.5 (10-20); Bilirubin Direct < 0.1 mg/dl (0-0.2); Blood Urea Nitrogen 67 mg/dl (7-18); Carbon Dioxide 32 mmol/L (21-32); Chloride 101 mmol/L (98-107); Creatinine Clr Calc Pharmacy 48.9 ml/min; Est GFR (African American) 52.5; Est GFR (Non-African American) 45.3; Glucose 185 mg/dl (70-99); Potassium 4.5 mmol/L (3.5-5.1); Sodium 138 mmol/L (136-145)
[2020-01-24 09:52] LABS: Albumin Globulin Ratio 0.8 (0.9-2); Alkaline Phosphatase 73 U/L (45-117); Bilirubin,Total 0.4 mg/dl (0.2-1); Globulin 3.6 gm/dl (2.5-4.0); Total Protein 6.4 gm/dl (6.4-8.2)
[2020-01-24 10:02] LABS: Platelet Estimate Decreased (Normal)
[2020-01-24] MEDS: POTASSIUM CHLORIDE 10 MEQ TABCR PO SCH (10:27)
--- NOTE | 2020-01-24 11:54 | Cardiology Progress Note ---
Date of Service January 24, 2020 Assessment & Plan (1) Chronic respiratory failure with hypoxia: Current presentation appears to be mixed etiology. Exam does not suggest significant volume overload and patient has responded to initial diuresis. Echocardiogram demonstrates preserved LV systolic function with right ventricular dilatation and severe pulmonary hypertension current blood pressures well controlled Creatinine has increased in comparison to past studies question secondary to a ddition of lisinopril Etiology of current complaints appears to be mixed respiratory possible underlying acute infection, volume overload and transient renal insufficiency Plan we will follow clinical course as already outlined with diuretics initiated. No profound volume overload or acute ischemia. Heart rates mostly controlled on substantial dosing of metoprolol succinate. We will add addit ional 50 mg nightly, reduce digoxin to 3 days/week given narrow therapeutic and (2) Chronic atrial fibrillation: Continue Toprol-XL 200 mg/day blood pressure and heart rate control Continue chronic anticoagulation with high risk for thromboembolic disease as recently documented (3) Acute bronchitis: Patient with nonproductive cough and wheezing responsive to nebulizer today (4) Elevated troponin: Troponins remain flat without evidence of evolution to suggest acute is chemia (5) Hypoxia: (6) Gzhbt-lw-etjyhxp renal failure: Creatinine improved, appreciate nephrology input with resumption of diuretics (7) NUVIA on CPAP: Subjective Patient was seen and examined, chart, medications, telemetry reviewed. Feels improved today. Some diuresis yesterday with less edema still with rhonchorous cough but much improved. No fevers or chills. No dizziness or lightheadedness. Heart rates trending towards better controlled Physical Exam Constitutional: well developed and + obese; no acute distress Eyes: PERRL, conjunctivae normal, anicteric sclerae ENMT: external ear and nose normal, oropharynx normal Neck: trachea midline, no thyromegaly + thick neck Respiratory: Auscultation: + diminished lung sounds and + bronchovesicular breath sounds (Left base with forced cough) Cardiovascular: Rate/Rhythm: + irregularly irregular Heart Sounds: normal S1 and normal S2; no gallop and no murmur Palpation: normal PMI Vessels: normal carotid upstroke and radial pulses present; no JVD and no carotid bruit Extremities: + edema (1+) Gastrointestinal (Abdomen): normal bowel sounds, soft, nontender, no hepatosplenomegaly Musculoskeletal: no cyanosis or clubbing, extremities motor strength 5/5 Skin: no rashes, warm and dry Neurologic: PERRL, EOMI, accommodation nl, no face palsy, no dysarthria Psychiatric: A+Ox3, euthymic affect Results & Data Vital Signs (Past 12 Hours) Vital Signs Temp Pulse Pulse Resp BP Pulse Ox 01/24/20 11:46 36.4 C L 88 20 122/66 97 01/24/20 10:46 83 18 96 01/24/20 09:42 86 01/24/20 07:15 112 H 18 96 01/24/20 07:01 37.0 C 82 21 127/74 96 01/24/20 03:53 36.5 C 92 H 20 148/78 H 93 01/24/20 02:30 62 82 16 93 01/24/20 00:52 36.7 C 91 H 23 138/77 91 01/24/20 00:05 96 H 22 99 Laboratory Results Laboratory Results - last 24 hr 01/23/20 01/23/20 01/24/20 16:17 19:59 07:22 WBC RBC Hgb Hct MCV MCH MCHC RDW Std Deviation RDW Coeff of Patrick Plt Count MPV Platelet Estimate PT INR Sodium Potassium Chloride Carbon Dioxide Anion Gap BUN Creatinine Est Cr Clr Drug Dosing Est GFR ( Amer) Est GFR (Non-Af Amer) BUN/Creatinine Ratio Glucose POC Glucose 138 H 219 H 148 H Calcium Total Bilirubin Direct Bilirubin AST ALT Alkaline Phosphatase Total Protein Albumin Globulin Albumin/Globulin Ratio 01/24/20 01/24/20 01/24/20 08:53 08:53 08:53 WBC 4.44 L RBC 4.08 L Hgb 11.9 L Hct 38.5 MCV 94.4 MCH 29.2 MCHC 30.9 L RDW Std Deviation 58.0 H RDW Coeff of Patrick 16.8 H Plt Count 112 L MPV 10.1 Platelet Estimate Decreased L PT 32.5 H INR 3.5 H Sodium 138 Potassium 4.5 Chloride 101 Carbon Dioxide 32 Anion Gap 6.0 BUN 67 H Creatinine 1.21 H D Est Cr Clr Drug Dosing 48.9 Est GFR ( Amer) 52.5 Est GFR (Non-Af Amer) 45.3 BUN/Creatinine Ratio 55.5 H Glucose 185 H POC Glucose Calcium 9.0 Total Bilirubin 0.4 Direct Bilirubin < 0.1 AST 16 ALT 14 Alkaline Phosphatase 73 Total Protein 6.4 Albumin 2.8 L Globulin 3.6 Albumin/Globulin Ratio 0.8 L 01/24/20 11:27 WBC RBC Hgb Hct MCV MCH MCHC RDW Std Deviation RDW Coeff of Patrick Plt Count MPV Platelet Estimate PT INR Sodium Potassium Chloride Carbon Dioxide Anion Gap BUN Creatinine Est Cr Clr Drug Dosing Est GFR ( Amer) Est GFR (Non-Af Amer) BUN/Creatinine Ratio Glucose POC Glucose 191 H Calcium Total Bilirubin Direct Bilirubin AST ALT Alkaline Phosphatase Total Protein Albumin Globulin Albumin/Globulin Ratio (1) Acute bronchitis Bronchitis organism: unspecified organism Qualified Code(s): J20.9 - Acute bronchitis, unspecified (2) [id number]-ixagnjs renal failure Acute renal failure type: unspecified Chronic kidney disease stage: unspecified stage Qualified Code(s): N17.9 - Acute kidney failure, unspecified; N18.9 - Chronic kidney disease, unspecified
[2020-01-24] MEDS: DIGOXIN 0.125 MG TAB PO SCH (16:49)
--- NOTE | 2020-01-24 18:25 | Nephrology Progress Note ---
Date of Service January 24, 2020 Assessment & Plan (1) Ennqp-yt-[id number] renal failure: nonoliguric acute on chronic renal failure w/ baseline creatinine 1.2-1.4 and presenting creatinine 2.0. nonoliguric prerenal HALI improving; likely from ongoing stable OP diuretics +/- recently introduced (but low dose) acei. do note that torsemide 60 mg bid and 12.5 mg daily metolazone and prn metolazone were not changed during recent hospital stays. chemistries acceptable; volume status tenuous but by history and exam improved compared to presentation. -cont to hold ACEI, torsemide, spironolactone, metolazone -daily bmp; mag ok -last lasix dose last evening; now will start lasix 30 mg IV 2 doses today, then starting tomorrow 30 mg at 0600, noon, 1800 IV -if labs ok tomorrow, would resume torsemide, spironolactone -look to remove ocampo on 01/24 if all is stable; could do today as well -strict I/O; low Na diet -no indication at this time for renal imaging unless she continues to worsen cl inically Admission and Anticipated Discharge Date Admission Date: January 22, 2020 Subjective seen on rounds htis am about 1015 as she was preparing for OT; no c/o feeling a bit better. sob stable, ? if cough improved. ongoing L leg weakness; eating well; would like to get rid of ocampo Review of Systems Review of Systems: All systems reviewed & are unremarkable except as noted in HPI & below Cardiovascular: + edema (unchanged) Physical Exam Constitutional: well developed, + morbidly obese and cooperative; no acute distress sitting on side of bed Eyes: EOM intact bilaterally ENMT: Ears: no external ear abnormality Nose: no external nose abnormality Mouth: + dry oral mucous membranes Neck: no nuchal rigidity Respiratory: + labored breathing (slightly); no cough (none today) Auscultation: + diminished lung sounds; no crackles, no rhonchi and no wheezes Cardiovascular: Rate/Rhythm: regular rate and regular rhythm Extremities: + edema (trace BL pretibial) Gastrointestinal (Abdomen): Inspection/Auscultation: normal bowel sounds Percussion/Palpation: abdomen soft; abdomen nontender Musculoskeletal: Extremities: strength 5/5 throughout Skin: no rashes, warm and dry Neurologic: yeung, fluent speech, L leg weak Psychiatric: A+Ox3, euthymic affect Genitourinary: ocampo w/ ample light yellow urine Results & Data ([facility]) Vital Signs (Past 12 Hours) Vital Signs Temp Pulse Pulse Resp BP BP Pulse Ox 01/24/20 16:49 85 01/24/20 16:31 93 H 01/24/20 15:25 83 18 96 01/24/20 15:10 36.7 C 83 18 127/64 96 01/24/20 11:46 36.4 C L 88 20 122/66 97 01/24/20 10:46 83 18 96 01/24/20 09:42 86 01/24/20 07:15 112 H 18 96 01/24/20 07:01 37.0 C 82 21 127/74 96 Laboratory Results 01/24/20 08:53 01/24/20 08:53 (1) Uwxzl-df-sloauae renal failure Acute renal failure type: unspecified Chronic kidney disease stage: unspecified stage Qualified Code(s): N17.9 - Acute kidney failure, unspecified; N18.9 - Chronic kidney disease, unspecified
--- NOTE | 2020-01-24 19:06 | Hospitalist Progress Note ---
Date of Service January 24, 2020 Assessment & Plan (1) Chronic respiratory failure with hypoxia: Chronic respiratory failure with hypoxia- continues on doxycycline and supportive care for presumed bronchitis in addition to Lasix for possible fluid overload that was present on admission. She continues to remain euvolemic on exam today and continues to clcally improve. Cont diuretic therapy. (2) Acute bronchitis: continue empiric doxycycline and supportive care efforts. Denies cough, fevers, chills or SOB at this time. (3) Woybx-os-awnqfjs renal failure: hold lisinopril, continue Lasix with decreased dose per nephrology. DC Jackson per patient request and okay with renal. Daily BMP (4) Demand ischemia: no further ischemic workup at this time. (5) Chronic atrial fibrillation: See below the patient has a recent history of brachial artery thrombus during her hospitalization within the last couple of months. She had been taken off of Coumadin which she was taking for chronic atrial fibrillation after a recent episode of intracranial hemorrhage. She underwent embolectomy and a RUTH revealed a PFO. She was restarted on Coumadin given the risk of life- threatening thrombus that was significantly high. Aspirin was stopped. (6) Current use of [facility] anticoagulation: Recent hospitalization for ICH where coumadin was held and she subsequently developed a brachial artery thrombus. A RUTH revealed a PFO and she was placed back on coumadin. ASA was not given so as not to add to bleeding risk. She currently has a supratherapeutic INR, so this is being held. INR daily. (7) Supratherapeutic INR: no active bleeding. INR improved to 3.5. Cont to hold coumadin and trend in am, likely planning to restart coumadin in am. . (8) NUVIA on CPAP: CPAP QHS-patient reports consistency with this at home. (9) Morbid obesity: (10) DVT prophylaxis: coumadin Full Code Dispo-uncertain at this time. Pt wishes to go home with family support, however, she was unable to sit straight on the toilet yesterday and isn't much better today. It is recommended that she go to rehab at [facility]. Ana Hairston DO [facility] Hospitalist Admission and Anticipated Discharge Date Admission Date: January 22, 2020 Subjective feeling well reports that her sister is in the [place] and she was waving to her today tolerating PO feels she can go home and wants to denies pain Review of Systems Review of Systems: All systems reviewed & are unremarkable except as noted in Subjective Physical Exam Physical Exam: CONSTITUTIONAL: obese, vitals as above, generally well- appearing EYES: normal conjunctivae, no scleral icterus ENT: MMM RESPIRATORY: clear to auscultation bilaterally, no crackles, rales or wheezes, normal respiratory effort CARDIOVASCULAR: regular rate and rhythm, S1 and 2 heard without murmurs, gallops or rubs, no JVD, no peripheral edema, erythroderma to bilateral lower extremities distally GASTROINTESTINAL: soft, obese, nontender, nondistended MUSCULOSKELETAL: appears generally weak and deconditioned. SKIN: warm and dry NEUROLOGIC: CN 2-12 grossly intact, no gross focal deficits. PSYCHIATRIC: awake and following instructions. she is answering questions appropriately but is a poor historian. ? intermittent delirium? Results & Data ([place]) Vital Signs (Past 12 Hours) Vital Signs Temp Pulse Pulse Resp BP BP Pulse Ox 01/24/20 16:49 85 01/24/20 16:31 93 H 01/24/20 15:25 83 18 96 01/24/20 15:10 36.7 C 83 18 127/64 96 01/24/20 11:46 36.4 C L 88 20 122/66 97 01/24/20 10:46 83 18 96 01/24/20 09:42 86 01/24/20 07:15 112 H 18 96 Laboratory Results Short CBC 01/24/20 Range/Units 08:53 WBC 4.44 L (4.8-10.8) K/uL Hgb 11.9 L (12.0-16.0) g/dL Hct 38.5 (37-47) % Plt Count 112 L (130-400) K/uL BMP 01/24/20 08:53 Sodium 138 Potassium 4.5 Chloride 101 Carbon Dioxide 32 BUN 67 H Creatinine 1.21 H D Glucose 185 H Calcium 9.0 Liver Function 01/24/20 Range/Units 08:53 Total Bilirubin 0.4 (0.2-1) mg/dl Direct Bilirubin < 0.1 (0-0.2) mg/dl AST 16 (15-37) U/L ALT 14 (12-78) U/L Alkaline Phosphatase 73 (45-117) U/L Albumin 2.8 L (3.4-5.0) gm/dl Medications Administered Current Inpatient Medications Acetaminophen (Tylenol) 650 mg PO Q4H PRN PRN Reason: Pain or Fever Stop: 02/21/20 12:46 Al Hydrox/Mg Hydrox/Simethicone (Maalox) 15 ml PO Q4H PRN PRN Reason: Dyspepsia Stop: 02/21/20 12:46 Albuterol (Duoneb) 3 ml NEB Q4R [facility] Stop: 02/21/20 14:59 Last Admin: 01/24/20 15:21 Dose: 3 ml Documented by: Allopurinol (Zyloprim) 200 mg PO DAILY@0800 [facility] Stop: 02/22/20 07:59 Last Admin: 01/24/20 08:34 Dose: 200 mg Documented by: Atorvastatin Calcium (Lipitor) 80 mg PO QAM [facility] Stop: 02/22/20 08:59 Last Admin: 01/24/20 08:33 Dose: 80 mg Documented by: Cyanocobalamin (Vitamin B-12) 1,000 mcg PO DAILY [facility] Stop: 02/21/20 08:59 Last Admin: 01/24/20 08:34 Dose: 1,000 mcg Documented by: Dextrose (Dextrose 50%) 25 - 50 ml IV UD PRN; Protocol PRN Reason: Hypoglycemia Protocol Stop: 02/21/20 12:46 Digoxin (Lanoxin) 0.125 mg PO DAILY@1600 [facility] Stop: 02/22/20 15:59 Last Admin: 01/24/20 16:49 Dose: 0.125 mg Documented by: Docusate Sodium (Colace) 200 mg PO BID [facility] Stop: 02/21/20 20:59 Last Admin: 01/24/20 08:35 Dose: Not Given Documented by: Doxycycline Hyclate (Vibramycin) 100 mg PO BID [facility] Stop: 01/30/20 08:59 Last Admin: 01/24/20 08:35 Dose: 100 mg Documented by: Fluticasone/Vilanterol (Breo Ellipta 100/25 Mcg Inh) 1 puffs INH QAM [facility] Stop: 02/22/20 08:59 Last Admin: 01/24/20 08:26 Dose: 1 puffs Documented by: Gabapentin (Neurontin) 300 mg PO HS [facility] Stop: 02/21/20 20:59 Last Admin: 01/23/20 20:03 Dose: 300 mg Documented by: Gabapentin (Neurontin) 100 mg PO BID@0900,1400 [facility] Stop: 02/21/20 13:59 Last Admin: 01/24/20 13:25 Dose: 100 mg Documented by: Glucagon (Glucagen) 1 mg SQ UD PRN; Protocol PRN Reason: Hypoglycemia Protocol Stop: 02/21/20 11:46 Glucose (Dex4 Glucose) 4 - 8 tabs PO UD PRN; Protocol PRN Reason: Hypoglycemia Protocol Stop: 02/21/20 11:46 Glucose (Glucose 40%) 15 - 30 gm PO UD PRN; Protocol PRN Reason: Hypoglycemia Protocol Stop: 02/21/20 11:46 Insulin Aspart (Novolog Flexpen) 0 units SC ACHS [facility] Stop: 02/21/20 16:29 Last Admin: 01/24/20 17:13 Dose: 3 units Documented by: Insulin Glargine (Lantus Solostar Pen) 45 units SQ QAM [facility] Stop: 02/22/20 08:59 Last Admin: 01/24/20 08:25 Dose: 45 units Documented by: Lidocaine (Lidoderm 5%) 1 patch TD QAM [facility] Stop: 02/22/20 08:59 Last Admin: 01/24/20 08:28 Dose: 1 patch Documented by: Magnesium Hydroxide (Milk Of Magnesia) 30 ml PO Q12H PRN PRN Reason: Constipation Stop: 02/21/20 12:46 Metoprolol Succinate (Toprol Xl) 200 mg PO DAILY@0800 [facility] Stop: 02/22/20 07:59 Last Admin: 01/24/20 08:34 Dose: 200 mg Documented by: Metoprolol Succinate (Toprol Xl) 50 mg PO QPM [facility] Stop: 02/23/20 20:59 Miscellaneous (Carbohydrates For Hypoglycemia) 15 - 30 gm PO UD PRN PRN Reason: Hypoglycemia Protocol Stop: 02/21/20 11:46 Miscellaneous (Remove Lidoderm Patch) 1 ea N/A DAILY@2100 [facility] Stop: 02/21/20 20:59 Last Admin: 01/23/20 20:02 Dose: 1 ea Documented by: Nitroglycerin (Nitrostat) 0.4 mg SL UD PRN PRN Reason: Chest Pain Stop: 02/21/20 12:46 Ondansetron HCl (Zofran) 4 mg IV Q6H PRN PRN Reason: Nausea Stop: 02/21/20 12:46 Polyethylene Glycol (Miralax Powder Packet) 17 gm PO DAILY PRN PRN Reason: Constipation Stop: 02/21/20 12:46 Potassium Chloride (Klor-Con M10) 10 meq PO DAILY@0800 [facility] Stop: 02/22/20 07:59 Last Admin: 01/24/20 10:27 Dose: 10 meq Documented by: Vitamin D (Vitamin D3) 2,000 units PO QAM [facility] Stop: 02/22/20 08:59 Last Admin: 01/24/20 08:34 Dose: 2,000 units Documented by: (1) Acute bronchitis Bronchitis organism: unspecified organism Qualified Code(s): J20.9 - Acute bronchitis, unspecified (2) Lpgge-pl-wzeskcl renal failure Acute renal failure type: unspecified Chronic kidney disease stage: unspecified stage Qualified Code(s): N17.9 - Acute kidney failure, unspecified; N18.9 - Chronic kidney disease, unspecified
[2020-01-24] MEDS: GABAPENTIN 300 MG CAP PO SCH (20:15)
[2020-01-24] MEDS ORDERED: METOPROLOL SUCC 50MG EXT REL TAB PO SCH (21:00)
[2020-01-25] MEDS: ALBUT/IPRATROP 3MG/0.5MG NEB 3 ML VIAL NEB SCH ×3 (03:18→11:07)
[2020-01-25 06:48] LABS: INR 2.7 (0.9-1.1); Prothrombin Time 25.9 Seconds (9.0-12.0)
[2020-01-25 07:49] LABS: Hematocrit (blood only) 37.1 % (37-47); Hemoglobin 11.6 g/dL (12.0-16.0); Mean Corpuscular Hemoglobin 29.7 pg (25-34); Mean Corpuscular Hgb Conc 31.3 g/dL (32-36); Mean Corpuscular Volume 94.9 fL (80-100); Mean Platelet Volume 10.2 fL (7.4-10.4); Platelet Count 115 K/uL (130-400); RDW Coefficient of Variation 16.7 % (11.5-14.5); RDW Standard Deviation 57.6 fL (36.4-46.3); Red Blood Count 3.91 M/uL (4.2-5.4)
[2020-01-25 07:53] LABS: Calcium 9.3 mg/dl (8.5-10.1); Creatinine Clr Calc Pharmacy 47.2 ml/min; Est GFR (Non-African American) 43.1; Potassium 4.4 mmol/L (3.5-5.1)
[2020-01-25] MEDS: METOPROLOL SUCC 50MG EXT REL TAB PO SCH (08:17)
[2020-01-25] MEDS: POTASSIUM CHLORIDE 10 MEQ TABCR PO SCH (08:18)
[2020-01-25] MEDS: GABAPENTIN 100 MG CAP PO SCH (08:18)
[2020-01-25] MEDS: CHOLECALCIFEROL 1,000 UNITS 25 MCG TAB PO SCH (08:18)
[2020-01-25] MEDS: allopurinoL 100 MG TAB PO SCH (08:18)
[2020-01-25] MEDS: ATORVASTATIN 40 MG TAB PO SCH (08:19)
[2020-01-25] MEDS: LIDOCAINE 5% 1 PATCH TD SCH (08:19)
[2020-01-25] MEDS: CYANOCOBALAMIN 500 MCG TABLET (VITAMIN B-12) PO SCH (08:19)
[2020-01-25] MEDS: FLUTICASONE/VILANTEROL 100/25MCG 14 PUFFS/INHALER INH SCH (08:19)
[2020-01-25] MEDS: DOXYCYCLINE HYCLATE 100 MG CAP PO SCH (08:19)
[2020-01-25] MEDS: INSULIN GLARGINE SOLOSTAR 100 UNITS/ML 3 ML PEN SQ SCH (08:20)
[2020-01-25] MEDS: INSULIN ASPART 100 UNITS/ML 3 ML PEN SC SCH (08:21)
--- NOTE | 2020-01-25 08:28 | Hospitalist Progress Note ---
Date of Service January 25, 2020 Assessment & Plan (1) Chronic respiratory failure with hypoxia: Chronic respiratory failure with hypoxia-continues on doxycycline and supportive care for presumed bronchitis. Torsemide restarted by KARLIE Laureano to [facility] when bed available. (2) Acute bronchitis: continue empiric doxycycline and supportive care efforts. Denies cough, fevers, chills or SOB at this time. Breathing a lot better (3) Koiia-tn-detptex renal failure: Torsemide per nephrology. (4) Demand ischemia: no further ischemic workup at this time. (5) Chronic atrial fibrillation: See below the patient has a recent history of brachial artery thrombus during her hospitalization within the last couple of months. She had been taken off of Coumadin which she was taking for chronic atrial fibrillation after a recent episode of intracranial hemorrhage. She underwent embolectomy and a RUTH revealed a PFO. She was restarted on Coumadin given the risk of life- threatening thrombus that was significantly high. Aspirin was stopped. 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 A RUTH revealed a PFO and she was placed back on coumadin. ASA was not given so as not to add to bleeding risk. She had a supratherapeutic INR, so Warfarin was held. INR today is 2.7. (7) Supratherapeutic INR: no active bleeding. INR improved to 2.7. Restart coumadin and trend (8) NUVIA on CPAP: CPAP QHS-patient reports consistency with this at home. (9) Morbid obesity: (10) DVT prophylaxis: coumadin Full Code Labs Checked Dispo-[facility] Today ROS-No Headache, No Visual Changes, No Nausea, No Vomiting, No Fever, No Chills, No Neck Pain or Stiffness, No Chest Pain, No Palpitations, No SOB, No CRUZ, No Cough, No Sputum, No Wheezing, No Abdominal Pain, No Diarrhea, No Hematemesis, No Hemoptysis, No Unexpected Weight Loss, No Flank pain, No Melena, No Hematochezia, No Frequency, No Urgency, No Burning, No Hematuria, No Rashes, No Diaphoresis. Appetite is Normal Physical Exam Gen-AAO x 3, NAD, Afebrile Head-NCAT, EOMI, PERRLA, Anicteric Sclera, No Posterior Pharyngeal Erythema Neck-Supple, No JVD, No Thyromegaly, No Masses, No LAD, No Bruits Lungs-Clear to Auscultation Bilaterally, No Rales, No Rhonchi, No Wheezing, No Crepitus Chest-No S4, +S1, +S2, No S3, No Murmurs, No Rubs, No Gallops, No Ectopy Abdomen-Soft, Bowel Sounds Present, Non Tender, Non Distended, No Hepatomegaly, No Splenomegaly, No Palpable Masses, No Rebound, No Rigidity, No Guarding Musculoskeletal-Full Range of Motion Bilaterally, No CVAT Extremities-No Cyanosis, No Clubbing, No Edema Nuero-Cranial Nerves II-XII grossly intact, Motor WNL, DTRs WNL, Strength WNL, Non Focal Psych-Normal Mood Admission and Anticipated Discharge Date Admission Date: January 22, 2020 Results & Data ([facility]) Vital Signs (Past 12 Hours) Vital Signs Temp Pulse Pulse Pulse Resp BP Pulse Ox 01/25/20 07:35 36.6 C 66 19 114/77 98 01/25/20 06:54 81 18 98 01/25/20 03:57 36.4 C L 88 21 152/85 H 92 01/25/20 03:20 86 24 91 01/25/20 03:19 86 24 91 01/25/20 00:23 36.1 C L 90 20 161/85 H 91 01/25/20 00:00 92 H 01/24/20 23:23 96 H 29 H 95 01/24/20 23:03 78 18 93 01/24/20 20:25 82 18 93 (1) Acute bronchitis Bronchitis organism: unspecified organism Qualified Code(s): J20.9 - Acute bronchitis, unspecified (2) Mvicd-kl-grbtuid renal failure Acute renal failure type: unspecified Chronic kidney disease stage: unspecified stage Qualified Code(s): N17.9 - Acute kidney failure, unspecified; N18.9 - Chronic kidney disease, unspecified
[2020-01-25] MEDS: DOCUSATE SODIUM 100 MG CAP PO SCH (08:30)
[2020-01-25] MEDS ORDERED: TORSEMIDE 20 MG TAB PO SCH (09:00)
--- NOTE | 2020-01-25 09:26 | Discharge Summary ---
Date of Service January 25, 2020 Admission HPI Per Admitting Provider this is 69 yo F with complex past medical hx of CHF diastolic dysfunction (HF pEF) , chronic afib , CKD stage 3 , Type 2 DM , hx of ICH sent from [facility] rehab as pt been experiencing Shortness of breath , cough on 12/21/19 : pt sustained a fall /hitting her head -developed intraparenchymal bleed in the post limb of rt internal capsule -on coumadin for Afib pt was initially seen at [facility] ER then transferred to [facility] ICU for further care pt was discharged to [facility] rehab on 01/01/20 pt reports starting to experiencing increasing SOB , CRUZ for past few days - notably on weekend , reports of increased fatigue ,weakness, significant orthopnea , unable to lie flat at night unable to participate in PT due to SOB with minimum exertion pt reports of increased lower ext swelling, increased abdominal girth had cough with whitish sputum , low grade fever at rehab yesterday in ER , pt appears to be significantly vol overloaded , Cxray shows pulmonary congestion elevated Pro BNP pt reports of episodes of chest tightness /heaviness yesterday while experiencing severe SOB with attempt to get out of bed symptom was resolved after rest reports of dizzy spell and lightheadedness with attempt to ambulate no syncope or fall no complain of chest pain or chest heaviness now pt is afebrile on 2 L 02 via nasal canula ( pt is on chronic home 02 2 L due to baseline COPD , pulm HTN) no report of nausea /vomiting no diarrhea or loose stool no report of dark stool or blood in stool has left sided weakness, rt facial droop which been chronic since ICH on 12/21/19 Admission Exam Per Admitting Provider Constitutional: WD/WN, vitals as above + obese; no acute distress (moderate distress due to SOB ) Eyes: PERRL, conjunctivae normal, anicteric sclerae ENMT: rt facial droop -chronic since last episode of rt sided intraparencymal hge Respiratory: + cough Auscultation: + diminished lung sounds, + crackles, + rales and + wheezes Cardiovascular: Rate/Rhythm: + abnormal rate Extremities: + calf tenderness, + pedal edema and + edema Gastrointestinal (Abdomen): Inspection/Auscultation: + abdomen distended and normal bowel sounds Percussion/Palpation: abdomen soft; abdomen nontender Musculoskeletal: left sided 4/5 weakness Upper > Lower ext : chronic since 12/21/19 Neurologic: left sided 4/5 weakness Upper > Lower ext : chronic since 12/21/19 rt facial droop , present on admission ( chronic since 12/21/19 ) Psychiatric: A+Ox3, euthymic affect Principal Diagnosis (1) Chronic respiratory failure with hypoxia:. (2) Acute bronchitis: (3) Ljwmb-uc-rmjuyjz renal failure: (4) Demand ischemia: (5) Chronic atrial fibrillation: (6) Current use of halfway anticoagulation: (7) Supratherapeutic INR: (8) NUVIA on CPAP: (9) Morbid obesity: Discharge Exam Gen-AAO x 3, NAD, Afebrile Head-NCAT, EOMI, PERRLA, Anicteric Sclera, No Posterior Pharyngeal Erythema Neck-Supple, No JVD, No Thyromegaly, No Masses, No LAD, No Bruits Lungs-Clear to Auscultation Bilaterally, No Rales, No Rhonchi, No Wheezing, No Crepitus Chest-No S4, +S1, +S2, No S3, No Murmurs, No Rubs, No Gallops, No Ectopy Abdomen-Soft, Bowel Sounds Present, Non Tender, Non Distended, No Hepatomegaly, No Splenomegaly, No Palpable Masses, No Rebound, No Rigidity, No Guarding Musculoskeletal-Full Range of Motion Bilaterally, No CVAT Extremities-No Cyanosis, No Clubbing, No Edema Nuero-Cranial Nerves II-XII grossly intact, Motor WNL, DTRs WNL, Strength WNL, Non Focal Psych-Normal Mood Discharge Data Allergies Allergy/AdvReac Type Severity Reaction Status Date / Time Penicillins Allergy Mild Unknown Verified 01/22/20 09:26 rofecoxib Allergy Unknown Unknown Verified 01/22/20 09:26 sulindac Allergy Unknown Unknown Verified 01/22/20 09:26 Consultations 01/22/20 12:47 Consult Cardiology Routine Consult Case Management - Discharge Planning Routine Consult Nephrology Routine Ordered Studies 01/22/20 11:38 CT head/brain wo con Stat Current Diagnoses Morbid (severe) obesity due to excess calories (01/22/20) Obstructive sleep apnea (adult) (pediatric) (01/22/20) Other forms of acute ischemic heart disease (01/22/20) Chronic atrial fibrillation (01/22/20) Unspecified diastolic (congestive) heart failure (01/22/20) Acute bronchitis, unspecified (01/22/20) Chronic respiratory failure with hypoxia (01/22/20) Acute kidney failure, unspecified (01/22/20) Chronic kidney disease, unspecified (01/22/20) Hypoxemia (01/22/20) Abnormal coagulation profile (01/22/20) Other specified abnormal findings of blood chemistry (01/22/20) Encounter for prophylactic measures, unspecified (01/22/20) continuous churn buttermaker (current) use of anticoagulants (01/22/20) Dependence on other enabling machines and devices (01/22/20) Allergies Penicillins Allergy (Mild, Verified 01/22/20 09:26) Unknown rofecoxib Allergy (Unknown, Verified 01/22/20 09:26) Unknown sulindac Allergy (Unknown, Verified 01/22/20 09:26) Unknown Height/Weight/Isolation Height 5 ft 1 in Weight 108.4 kg Chemistry 01/24/20 01/25/20 08:53 06:11 Sodium 138 141 Potassium 4.5 4.4 Chloride 101 103 Carbon Dioxide 32 33 H Anion Gap 6.0 5.0 BUN 67 H 67 H Creatinine 1.21 H D 1.26 H Glucose 185 H 138 H Hospital Course (1) Chronic respiratory failure with hypoxia: Chronic respiratory failure with hypoxia-continues on doxycycline and supportive care for presumed bronchitis. Torsemide restarted by Nephcharles DC to [facility] when bed available. (2) Acute bronchitis: continue empiric doxycycline and supportive care efforts. Denies cough, fevers, chills or SOB at this time. Breathing a lot better (3) Ylsrw-zi-vgnazil renal failure: Torsemide per nephrology. (4) Demand ischemia: no further ischemic workup at this time. (5) Chronic atrial fibrillation: See below the patient has a recent history of brachial artery thrombus during her hospitalization within the last couple of months. She had been taken off of Coumadin which she was taking for chronic atrial fibrillation after a recent episode of intracranial hemorrhage. She underwent embolectomy and a RUTH revealed a PFO. She was restarted on Coumadin given the risk of life- threatening thrombus that was significantly high. Aspirin was stopped. 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 A RUTH revealed a PFO and she was placed back on coumadin. ASA was not given so as not to add to bleeding risk. She had a supratherapeutic INR, so Warfarin was held. INR today is 2.7. (7) Supratherapeutic INR: no active bleeding. INR improved to 2.7. Restart coumadin and trend (8) NUVIA on CPAP: CPAP QHS-patient reports consistency with this at home. (9) Morbid obesity: (10) DVT prophylaxis: coumadin Full Code Labs Checked [facility]po-[facility] Today Total Time Total Time Spent Total Time Spent (In Minutes): 45 mins Total Time Includes: Examination of the Patient, Discharge Planning, Medication Reconciliation and Communication With Other Providers Discharge Plan Discharge Items Patient Disposition: Transfer Inpatient Rehab Fac Reason For Visit: SOB Discharge Diagnosis: (1) Chronic respiratory failure with hypoxia:. (2) Acute bronchitis: (3) Zxbit-fh-bqvqarr renal failure: (4) Demand ischemia: (5) Chronic atrial fibrillation: (6) Current use of halfway anticoagulation: (7) Supratherapeutic INR: (8) NUVIA on CPAP: (9) Morbid obesity Activity: Resume your previous activity Lifting: None and Gradually increase as tolerated Bathing: No limitations Exercise/Sports: Gradually increase as tolerated Driving/Machine Use: No limitations Weightbearing: Full weightbearing Non-emergency contact: Primary Care Provider, Neonatal Surgeon and Car Lubricator Call non-emergency contact if: you have any medication questions Follow-up/Referrals: [facility] [Primary Care Provider] - Diet: Heart Healthy and Low Sodium (2gm) Fluids: 1200ml (5 cups) Addtl Attending Provider Instructions: None Pending Studies at Discharge: No Studies:: Daily PT/INR for Warfarin Dosing Stand-Alone Forms: My [employer] Skilled Items Patient informed of condition?: Yes DNR: No Discharge Level of Care: Skilled Communicable Disease: No Discharge Prognosis: Improving Lines: None Urinary Catheter: No Medications and DC Order Prescriptions: New doxycycline hyclate 100 mg Capsule 100 mg PO BID Qty: 14 RF: 0 warfarin 3 mg tablet 3 mg PO DAILY Qty: 30 RF: 0 Continued atorvastatin 40 mg Tablet 80 mg PO QAM RF: 0 cyanocobalamin (vitamin B-12) [Vitamin B-12] 1,000 mcg Tablet 1,000 mcg PO QAM RF: 0 nitroglycerin [Nitrostat] 0.4 mg Tablet, Sublingual 0.4 mg Sublingual DIRECTED PRN (Reason: Chest Pain) RF: 0 gabapentin 100 mg Capsule 300 mg PO HS RF: 0 cholecalciferol (vitamin D3) [Vitamin D3] 1,000 unit Capsule 2,000 unit PO QAM RF: 0 Lantus Solostar U-100 Insulin 100 unit/mL (3 mL) Insulin Pen 45 unit SUBCUT QAM RF: 0 spironolactone 25 mg tablet 12.5 mg PO QAM RF: 0 potassium chloride 10 mEq tablet extended release 10 meq PO DAILY@0800 RF: 0 metolazone 2.5 mg tablet 2.5 mg PO DIRECTED PRN (Reason: Weight Gain, SOB) RF: 0 torsemide 20 mg tablet 60 mg PO BID RF: 0 metoprolol succinate 200 mg Tablet Extended Release 24 Hr 200 mg PO DAILY@0800 RF: 0 allopurinol 100 mg Tablet 200 mg PO DAILY@0800 RF: 0 Humulin R Regular U-100 Insuln 100 unit/mL Solution 1 sliding scale dose SUBCUT USEASDIRECTD RF: 0 lidocaine [Lidoderm] 5 % Adhesive Patch,Medicated 1 patch TOPICAL QAM RF: 0 docusate sodium 100 mg Capsule 200 mg PO BID RF: 0 lisinopril 5 mg Tablet 5 mg PO DAILY@0800 RF: 0 digoxin 125 mcg (0.125 mg) Tablet 125 mcg PO DAILY RF: 0 gabapentin 100 mg capsule 100 mg PO BID RF: 0 Breo Ellipta 100-25 mcg/dose Blister With Device 1 inh INHALATION QAM RF: 0 Discontinued warfarin [Coumadin] 3 mg tablet See Rx Instructions .ROUTE .COMPLEX RF: 0 Discharge Orders: Discharge Order (Routine); Ordered 01/25/20 Ordered By: Franky Nichols/Other Patient Handouts: Diabetes Residential Complications, Diabetes Healthy Meals, Diabetes Exercise Benefits, Diabetes Manage A1C Test Admission Data Admit Date/Time: 01/22/20 10:50 Attending Provider: Franky Pedraza Admit Provider: Jocelin Feldman Primary Care Provider: [facility] Other Providers: Johnathon Jackson ; Uli Toney ; Hakeem Fenton ; Erick Teran ; Liban Godwin ; Vinny Pierre ; Aurelia Hilario ; Monika Georges ; Bridger Menon ; Rosy Lawson ; Mark Mahmood ; Marissa Figueredo ; Marcia Nina ; Wilmer Coronado. ; [facility]
--- NOTE | 2020-01-25 09:33 | Cardiology Progress Note ---
Date of Service January 25, 2020 Assessment & Plan (1) Chronic respiratory failure with hypoxia: Current presentation appears to be mixed etiology. Exam does not suggest significant volume overload and patient has responded to initial diuresis. Echocardiogram demonstrates preserved LV systolic function with right ventricular dilatation and severe pulmonary hypertension current blood pressures well controlled Creatinine has increased in comparison to past studies question secondary to a ddition of lisinopril Etiology of current complaints appears to be mixed respiratory possible underlying acute infection, volume overload and transient renal insufficiency Plan we will follow clinical course as already outlined with diuretics initiated. No profound volume overload or acute ischemia. Heart rates mostly controlled on substantial dosing of metoprolol succinate. We will add addit ional 50 mg nightly, reduce digoxin to 3 days/week given narrow therapeutic index As above, treating multifactorial complaints. Heart rate much improved. Metoprolol succinate increased to 200 mg a.m. 50 mg p.m. usual torsemide dosing resumed. Would not use metolazone currently. Lisinopril discontinued (2) Chronic atrial fibrillation: Toprol increased as above Continue chronic anticoagulation with high risk for thromboembolic disease as recently documented (3) Acute bronchitis: Patient with nonproductive cough and wheezing responsive to nebulizer today (4) Elevated troponin: Troponins remain flat without evidence of evolution to suggest acute ischemia (5) Hypoxia: (6) Yjqfd-nx-yfttuyv renal failure: Creatinine improved, appreciate nephrology input with resumption of diuretics (7) NUVIA on CPAP: Subjective Patient seen, chart, medications, telemetry reviewed Patient feels improved this morning no cardiac complaints. Wheezing less pronounced. No worsening edema. Physical Exam Constitutional: well developed and + obese; no acute distress Eyes: PERRL, conjunctivae normal, anicteric sclerae ENMT: external ear and nose normal, oropharynx normal Neck: trachea midline, no thyromegaly + thick neck Respiratory: Auscultation: + diminished lung sounds and + wheezes (Few scattered with forced cough) Cardiovascular: Rate/Rhythm: + irregularly irregular Heart Sounds: normal S1 and normal S2; no gallop and no murmur Palpation: normal PMI Vessels: normal carotid upstroke and radial pulses present; no JVD and no carotid bruit Extremities: + edema (1+) Gastrointestinal (Abdomen): normal bowel sounds, soft, nontender, no hepatosplenomegaly Musculoskeletal: no cyanosis or clubbing, extremities motor strength 5/5 Skin: no rashes, warm and dry Neurologic: PERRL, EOMI, accommodation nl, no face palsy, no dysarthria Psychiatric: A+Ox3, euthymic affect Results & Data Vital Signs (Past 12 Hours) Vital Signs Temp Pulse Pulse Pulse Resp BP Pulse Ox 01/25/20 07:35 36.6 C 66 19 114/77 98 01/25/20 06:54 81 18 98 01/25/20 03:57 36.4 C L 88 21 152/85 H 92 01/25/20 03:20 86 24 91 01/25/20 03:19 86 24 91 01/25/20 00:23 36.1 C L 90 20 161/85 H 91 01/25/20 00:00 92 H 01/24/20 23:23 96 H 29 H 95 01/24/20 23:03 78 18 93 (1) Acute bronchitis Bronchitis organism: unspecified organism Qualified Code(s): J20.9 - Acute bronchitis, unspecified (2) Ifrwk-cf-ajbawbm renal failure Acute renal failure type: unspecified Chronic kidney disease stage: unspecified stage Qualified Code(s): N17.9 - Acute kidney failure, unspecified; N18.9 - Chronic kidney disease, unspecified
--- NOTE | 2020-01-25 15:36 | Nephrology Progress Note ---
Date of Service January 25, 2020 Assessment & Plan (1) Seiwm-le-unziedm renal failure: nonoliguric acute on chronic renal failure w/ baseline creatinine 1.2-1.4 and presenting creatinine 2.0. nonoliguric prerenal HALI improved today back to baseline; likely from ongoing stable OP diuretics +/- recently introduced (but low dose) acei. do note that torsemide 60 mg bid and 12.5 mg daily metolazone and prn metolazone were not changed during recent hospital stays. chemistries acceptable; volume status tenuous but by history and exam improved compared to presentation. -care was d/w Dr Pedraza > plan was to resume torsemide 60 mg bid; in interval pt d/c'd and has torsemide, spironolactone, metolazone, lisinopril all back on board -will reach out to [facility] w/ BMP M/Th x 3 wks -will reach out to [facility] re f/u appt w/ me in 3-4 wks -d/c on 1.2L FR and low Na diet Renal nurse in CKD clinic updated on above and will arrange; see EPIC note Admission and Anticipated Discharge Date Admission Date: January 22, 2020 Subjective seen on rounds this am at 0745; feels good; had most of her breakfast; breathing at baseline; edema controlled; no voiding c/o Review of Systems Review of Systems: All systems reviewed & are unremarkable except as noted in HPI & below Physical Exam Constitutional: well developed, + morbidly obese and cooperative; no acute distress (up in chair on 02NC) Eyes: EOM intact bilaterally ENMT: Ears: no external ear abnormality Nose: no external nose abnormality Mouth: + dry oral mucous membranes Neck: no nuchal rigidity Respiratory: + labored breathing (slightly); no cough (none today) Auscultation: + diminished lung sounds; no crackles, no rhonchi and no wheezes Cardiovascular: Rate/Rhythm: regular rate and regular rhythm Extremities: + edema (trace BL pretibial) Gastrointestinal (Abdomen): Inspection/Auscultation: normal bowel sounds Percussion/Palpation: abdomen soft; abdomen nontender Musculoskeletal: Extremities: strength 5/5 throughout Skin: no rashes, warm and dry Neurologic: L leg weak, yeung, fluent speech, no tremor Psychiatric: A+Ox3, euthymic affect Results & Data ([facility]) Vital Signs (Past 12 Hours) Vital Signs Temp Pulse Pulse Pulse Resp BP BP 01/25/20 10:58 36.6 C 81 66 19 114/77 127/60 01/25/20 08:10 87 01/25/20 07:35 36.6 C 66 19 114/77 01/25/20 06:54 81 18 01/25/20 03:57 36.4 C L 88 21 152/85 H Pulse Ox 01/25/20 10:58 98 01/25/20 08:10 01/25/20 07:35 98 01/25/20 06:54 98 01/25/20 03:57 92 Laboratory Results 01/25/20 06:11 01/25/20 06:11 (1) Carco-ab-mwhxhmg renal failure Acute renal failure type: unspecified Chronic kidney disease stage: unspecif ied stage Qualified Code(s): N17.9 - Acute kidney failure, unspecified; N18.9 - Chronic kidney disease, unspecified
== END 2020-01-25 11:37 | DRG 280 ==
LOC: ED 07:51 → 1E 10:50 → SUATTDRO 10:50 → 1E 11:49 → 2S 01-23 22:42

== ENCOUNTER 2020-08-11 17:02 | Inpatient (IN) ==
[2020-08-11 17:38] LABS: Basophils # (auto) 0.03 K/uL (0-0.2); Basophils % (auto) 0.3 %; Eosinophils # (auto) 0.11 K/uL (0-0.5); Eosinophils % (auto) 1.2 %; Hematocrit (blood only) 35.3 % (37-47); Hemoglobin 10.9 g/dL (12.0-16.0); Immature Granulocytes # (auto) 0.03 K/uL (0.00-0.02); Immature Granulocytes % (auto) 0.3 %; Lymphocytes # (auto) 1.52 K/uL (1.2-3.4); Lymphocytes % (auto) 16.2 %; Mean Corpuscular Hemoglobin 29.3 pg (25-34); Mean Corpuscular Hgb Conc 30.9 g/dL (32-36); Mean Corpuscular Volume 94.9 fL (80-100); Monocytes # (auto) 0.45 K/uL (0.11-0.59); Monocytes % (auto) 4.8 %; Neutrophils # (auto) 7.24 K/uL (1.4-6.5); Neutrophils % (auto) 77.2 %; Platelet Count 156 K/uL (130-400); RDW Standard Deviation 55.7 fL (36.4-46.3); Red Blood Count 3.72 M/uL (4.2-5.4); White Blood Count 9.38 K/uL (4.8-10.8)
[2020-08-11 17:49] LABS: INR 2.3 (0.9-1.1); Partial Thromboplastin Ratio 1.3; Partial Thromboplastin Time 35.6 Seconds (21.0-31.0); Prothrombin Time 23.6 Seconds (9.0-12.0)
--- NOTE | 2020-08-11 17:54 | XRay Report ---
XR chest 1V portable HISTORY: Dyspnea COMPARISON: Chest 05/05/2020. FINDINGS: No pneumothorax. No pleural effusions. No new focal lung consolidations to suggest pneumoni a. The heart remains enlarged. There is mild central pulmonary vascular congestion without overt makeda a. This is also unchanged. IMPRESSION: No change in the cardiomegaly and mild central pulmonary vascular congestion. ACT 112: Negative or not required by law. Electronically signed by: Rocky Ventura M.D. 08/11/2020 5:53 PM
--- NOTE | 2020-08-11 17:55 | Emergency Department Note ---
Impression & Plan Acute exacerbation of congestive heart failure, Chest pain, Fluid overload ED Provider Note Provider: Gary Major MD DATE OF SERVICE: 08/11/2020 CHIEF COMPLAINT: Shortness of breath, chest pain HISTORY OF PRESENT ILLNESS: Patient is a 69-year-old female with a history of diabetes, heart failure, atrial fibrillation on Coumadin presenting here today stating over the past 2 days she has had the onset of some slight central chest discomfort radiating to the left shoulder. States has been more short of breath particular with exertion. Is increased her baseline 3 L of oxygen up to 4 L. Patient states she is noticed her weights gone up by about 4 pounds and some increased swelling of her lower extremities. Patient states just before this on Tuesday she had 3 helpings of a ham pot pie that she thinks may be contributing. Patient states she has been compliant with her home torsemide but has not increased this dosage. Patient states feels similar when she is had fluid overload in the past. No sick contacts or fever reported. No trauma reported. States he is been ambulating okay with her walker at home. REVIEW OF SYSTEMS: A total of 10 review of systems was obtained and negative except as stated above in the HPI. PAST MEDICAL HISTORY: As noted above MEDICATIONS: Reviewed home medication list SOCIAL HISTORY: Lives at home, former smoker PHYSICAL EXAM: GENERAL: alert and oriented in no acute distress on stretcher Head: normocephalic and atraumatic EYES: No injection, discharge or icterus. NECK: Trachea midline. Supple. ENT: Mucous membranes pink and moist. LUNGS: Airway patent. No retractions. Breath sounds diminished in lower extremities. HEART: Regular rate and rhythm. No chest wall tenderness ABDOMEN: Soft and non-tender, without guarding or rebound. SKIN: Acyanotic, warm, dry, without rashes EXTREMITIES: Chronic stasis changes bilateral lower extremities not significant erythema or crepitus. 2+ lower extremity edema to the knee NEUROLOGICAL: No focal deficits. No aphasia. No facial droop or slurred speech EK bpm atrial fibrillation. Some baseline artifact is present but no clear ST segment elevation is noted. QTC of 417 appreciated. CONTINUOUS CARDIAC MONITORING: was ordered and showed a heart rate of 88 bpm in atrial fibrillation Patient's hypertension was referred to the hospitalist Patient's laboratory studies and imaging reviewed. Differential includes Reactive airway disease, pneumonia, pneumothorax, COPD, CHF, infections, cardiac ischemia, pulmonary embolism, musculoskeletal, gastrointestinal, as well as other pathologies. IMPRESSION/MEDICAL DECISION MAKING: Patient presents complaining of some chest discomfort and shortness of breath requiring increased oxygen. No fevers reported or infectious symptoms. No trauma reported. Given the increase salt intake recently with the polyp I believe this is likely causing increased fluid overload and possibly some CHF worsening her symptoms. I have a low suspicion for coronavirus at this time. EKG shows atrial fibrillation but she is properly anticoagulated lowering my suspicion for acute PE or DVT. Some chronic baseline anemia is noted without significant leukocytosis. She denies any abdominal discomfort and has a benign abdomen here. No significant electrolyte abnormality. Renal function at baseline if not slightly better. Undetectable troponin. proBNP is doubled from previous and with a clinical exam and history consistent with a CHF exacer bation. Given some additional Lasix for diuresis here as she is on increased oxygen. Discussed the patient further observation overnight in the hospital given increased oxygen usage and her fluid overload she was in agreement with this plan. The hospitalist was contacted. DIAGNOSIS: CHF exacerbation, fluid overload DISPOSITION: Hospitalist will evaluate Patient was agreeable with this plan. Past Med/Surg History Medical History (Updated 08/11/20 @ 18:26 by Gary Major M.D.) Anemia (11/27/13) Chronic atrial fibrillation Chronic respiratory failure with hypoxia CKD (chronic kidney disease) stage 3, GFR 30-59 ml/min Diabetes mellitus, type II Dyslipidemia HTN (hypertension) Lumbar radiculopathy NUVIA on CPAP Pickwickian syndrome Polymyalgia rheumatica Right-sided heart failure Tobacco use disorder Surgical History History of hysterectomy History of total knee replacement Family History Father Heart disease Stroke Mother Diabetes Social History Smoking Status: Former smoker Tobacco Type: Cigarettes Cigarettes Per Day: 10; Second Hand Exposure: No; Hx Alcohol Use: No Hx Substance Use: No Preferred Language: [place] Communication Ability: Effective 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 Beliefs That Will Affect Care: None marital status: / Current Living Situation: [facility] Feels Safe at Home: Yes Allergies Allergies Allergy/AdvReac Type Severity Reaction Status Date / Time Penicillins Allergy Mild Unknown Verified 08/11/20 18:25 rofecoxib Allergy Unknown Unknown Verified 08/11/20 18:25 sulindac Allergy Unknown Unknown Verified 08/11/20 18:25 Home Meds Home Medications Medication Instructions Recorded Confirmed Lantus Solostar U-100 Insulin 50 unit SUBCUT QAM 08/11/18 05/06/20 atorvastatin 80 mg PO QAM 08/11/18 05/06/20 nitroglycerin [Nitrostat] 0.4 mg SUBLINGUAL DIRECTED PRN 08/11/18 05/06/20 metolazone 2.5 mg PO DIRECTED PRN 06/17/19 05/06/20 torsemide 60 mg PO BID 10/22/19 05/06/20 potassium chloride 10 meq PO QAM 12/21/19 05/06/20 Breo Ellipta 1 inh INHALATION QAM 01/22/20 05/06/20 Humulin R Regular U-100 Insuln 12 unit SUBCUT BIDM 01/22/20 05/06/20 allopurinol 200 mg PO QAM 01/22/20 05/06/20 digoxin 125 mcg PO 3XWK 01/22/20 05/06/20 gabapentin See Rx Instructions .ROUTE .COMPLEX 01/22/20 05/06/20 lidocaine [Lidoderm] 1 patch TOPICAL QAM 01/22/20 05/06/20 albuterol sulfate 2.5 mg INHALATION UD PRN 04/04/20 05/06/20 citalopram 10 mg PO DAILY 04/04/20 05/06/20 metoprolol succinate [Toprol XL] 200 mg PO QAM 04/04/20 05/06/20 nystatin [Nystop] 1 applic TOPICAL TID 04/04/20 05/06/20 acetaminophen [Tylenol] 650 mg PO Q4 PRN MDD 10 TAB/24 05/06/20 05/06/20 HOURS cholecalciferol (vitamin D3) 50 mcg PO DAILY 05/06/20 05/06/20 [Vitamin D3] cyanocobalamin (vitamin B-12) 1,000 mcg PO DAILY 05/06/20 05/06/20 [Vitamin B-12] warfarin See Rx Instructions .ROUTE .COMPLEX 05/06/20 05/06/20 Results & Data (ED) Vital Signs Vital Signs - 24 hr 08/11/20 17:14 08/11/20 17:15 08/11/20 17:47 Temperature 37.1 C Temperature Source Oral Pulse Rate 78 81 Pulse Rate from SpO2 Sensor 82 Respiratory Rate 20 17 Respiratory Effort / Characteristics Non-Labored Spontaneous Respiratory Depth Normal Respiratory Pattern Agonal Blood Pressure 127/83 152/95 H Blood Pressure Mean 97 123 Pulse Oximetry 95 95 99 Oxygen Delivery Method Nasal Cannula Nasal Cannula Nasal Cannula Oxygen Flow Rate 4 4 4 Sepsis Recent Fever Within 48 Hours No Sepsis New/Unexplained Change in Mental Status No Sepsis Action Taken by Nursing No Action Required 08/11/20 18:01 Temperature Temperature Source Pulse Rate 66 Pulse Rate from SpO2 Sensor Respiratory Rate 23 Respiratory Effort / Characteristics Respiratory Depth Respiratory Pattern Blood Pressure 149/78 H Blood Pressure Mean 107 Pulse Oximetry 98 Oxygen Delivery Method Nasal Cannula Oxygen Flow Rate 4 Sepsis Recent Fever Within 48 Hours Sepsis New/Unexplained Change in Mental Status Sepsis Action Taken by Nursing Laboratory Data Result diagrams: 08/11/20 17:30 08/11/20 17:30 Lab Results 08/11/20 08/11/20 08/11/20 Range/Units 17:30 17:30 17:30 WBC 9.38 (4.8-10.8) K/uL RBC 3.72 L (4.2-5.4) M/uL Hgb 10.9 L (12.0-16.0) g/dL Hct 35.3 L (37-47) % MCV 94.9 (80-100) fL MCH 29.3 (25-34) pg MCHC 30.9 L (32-36) g/dL RDW Std Deviation 55.7 H (36.4-46.3) fL RDW Coeff of Patrick 16.0 H (11.5-14.5) % Plt Count 156 (130-400) K/uL MPV 10.0 (7.4-10.4) fL Immature Gran % (Auto) 0.3 % Neut % (Auto) 77.2 % Lymph % (Auto) 16.2 % Owen % (Auto) 4.8 % Eos % (Auto) 1.2 % Baso % (Auto) 0.3 % Neut # (Auto) 7.24 H (1.4-6.5) K/uL Lymph # (Auto) 1.52 (1.2-3.4) K/uL Owen # (Auto) 0.45 (0.11-0.59) K/uL Eos # (Auto) 0.11 (0-0.5) K/uL Baso # (Auto) 0.03 (0-0.2) K/uL Immature Gran # (Auto) 0.03 H (0.00-0.02) K/uL PT 23.6 H (9.0-12.0) Seconds INR 2.3 H (0.9-1.1) APTT 35.6 H (21.0-31.0) Seconds PTT Ratio 1.3 Sodium 140 (136-145) mmol/L Potassium 3.7 (3.5-5.1) mmol/L Chloride 103 (98-107) mmol/L Carbon Dioxide 34 H (21-32) mmol/L Anion Gap 3.0 (3-11) BUN 36 H (7-18) mg/dl Creatinine 1.19 (0.6-1.2) mg/dl Est Cr Clr Drug Dosing 50.0 ml/min Est GFR ( Amer) 53.6 Est GFR (Non-Af Amer) 46.2 BUN/Creatinine Ratio 30.6 H (10-20) Glucose 150 H (70-99) mg/dl Calcium 9.2 (8.5-10.1) mg/dl Magnesium 2.0 (1.8-2.4) mg/dl Total Bilirubin 0.5 (0.2-1) mg/dl AST 7 L (15-37) U/L ALT 14 (12-78) U/L Alkaline Phosphatase 77 (45-117) U/L Troponin I < 0.015 (0-0.045) ng/ml NT-Pro-B Natriuret Pep 4307 H (0-900) pg/ml Total Protein 6.7 (6.4-8.2) gm/dl Albumin 3.3 L (3.4-5.0) gm/dl Globulin 3.4 (2.5-4.0) gm/dl Albumin/Globulin Ratio 1.0 (0.9-2) Administered Medications Discontinued Medications Furosemide (Furosemide 40 Mg/4 Ml Vial) 40 mg IV NOW STA Stop: 08/11/20 18:04 Last Admin: 08/11/20 18:09 Dose: 40 mg Documented by: [id number] Discharge Plan Visit Data Chief Complaint: Cardiac Assessment Stated Complaint: FLUID RETENTION ED Provider: Gary Major Discharge Problem: Acute exacerbation of congestive heart failure, Chest pain, Fluid overload Patient Disposition: Admitted As Inpatient Forms Stand Alone Forms: [facility] Prescriptions Prescriptions: No Action atorvastatin 40 mg Tablet 80 mg PO QAM RF: 0 nitroglycerin [Nitrostat] 0.4 mg Tablet, Sublingual 0.4 mg Sublingual DIRECTED PRN (Reason: Chest Pain) RF: 0 Lantus Solostar U-100 Insulin 100 unit/mL (3 mL) Insulin Pen 50 unit SUBCUT QAM RF: 0 potassium chloride 10 mEq tablet extended release 10 meq PO QAM RF: 0 metolazone 2.5 mg tablet 2.5 mg PO DIRECTED PRN (Reason: Weight Gain, SOB) RF: 0 torsemide 20 mg tablet 60 mg PO BID RF: 0 allopurinol 100 mg Tablet 200 mg PO QAM RF: 0 Humulin R Regular U-100 Insuln 100 unit/mL Solution 12 unit SUBCUT BIDM RF: 0 lidocaine [Lidoderm] 5 % Adhesive Patch,Medicated 1 patch TOPICAL QAM RF: 0 digoxin 125 mcg (0.125 mg) Tablet 125 mcg PO 3XWK RF: 0 gabapentin 100 mg capsule See Rx Instructions .ROUTE .COMPLEX RF: 0 Breo Ellipta 100-25 mcg/dose Blister With Device 1 inh INHALATION QAM RF: 0 albuterol sulfate 2.5 mg /3 mL (0.083 %) solution for nebulization 2.5 mg inhalation UD PRN (Reason: Wheezing) RF: 0 citalopram 10 mg tablet 10 mg PO DAILY RF: 0 metoprolol succinate [Toprol XL] 100 mg tablet extended release 24 hr 200 mg PO QAM RF: 0 nystatin [Nystop] 100,000 unit/gram powder 1 applic TOPICAL TID RF: 0 acetaminophen [Tylenol] 325 mg Tablet 650 mg PO Q4 MDD 10 TABS/24 HOURS PRN (Reason: Pain) RF: 0 cyanocobalamin (vitamin B-12) [Vitamin B-12] 1,000 mcg Tablet 1,000 mcg PO DAILY RF: 0 warfarin 3 mg Tablet See Rx Instructions .ROUTE .COMPLEX RF: 0 cholecalciferol (vitamin D3) [Vitamin D3] 50 mcg (2,000 unit) Capsule 50 mcg PO DAILY RF: 0 Referrals Referrals: Edison Mathis MD [Primary Care Provider] - Discharge Problem: Acute exacerbation of congestive heart failure Qualifiers: Heart failure type: unspecified Qualified Code(s): I50.9 - Heart failure, unspecified Chest pain Qualifiers: Chest pain type: unspecified Qualified Code(s): R07.9 - Chest pain, unspecified Fluid overload Qualifiers: Hypervolemia type: unspecified Qualified Code(s): E87.70 - Fluid overload, unspecified
[2020-08-11 17:56] LABS: Alanine Aminotransferase 14 U/L (12-78); Albumin Level 3.3 gm/dl (3.4-5.0); Aspartate Aminotransferase 7 U/L (15-37); BUN Creatinine Ratio 30.6 (10-20); Blood Urea Nitrogen 36 mg/dl (7-18); Calcium 9.2 mg/dl (8.5-10.1); Carbon Dioxide 34 mmol/L (21-32); Chloride 103 mmol/L (98-107); Est GFR (African American) 53.6; Est GFR (Non-African American) 46.2; Glucose 150 mg/dl (70-99); Potassium 3.7 mmol/L (3.5-5.1); Sodium 140 mmol/L (136-145)
[2020-08-11 18:01] LABS: Alkaline Phosphatase 77 U/L (45-117); Bilirubin,Total 0.5 mg/dl (0.2-1); Globulin 3.4 gm/dl (2.5-4.0); NT Pro B Type Natriuretic Pept 4307 pg/ml (0-900); Total Protein 6.7 gm/dl (6.4-8.2); Troponin I < 0.015 ng/ml (0-0.045)
[2020-08-11] MEDS ORDERED: FUROSEMIDE 40 MG/4 ML VIAL IV STA (18:03)
--- NOTE | 2020-08-11 18:36 | History & Physical Report ---
Date of Service August 11, 2020 Assessment & Plan (1) Acute exacerbation of congestive heart failure: (2) Acute on chronic respiratory failure: This is a 69yo F with a PMH of R sided heart failure, cor pulmonale, h/o brachial artery thrombus COPD, chronic respiratory failure on 3L NC O2, DM II, HTN, chronic A Fib on anticoagulation, PVD, NUVIA on CPAP, tobacco use and other medical problems listed below who presents with dyspnea on exertion and chest discomfort x 2 days. -Dyspnea on exertion, CP, BLE edema in setting of non-compliance with diet -BNP elevated at 4,300. Initial troponin negative. EKG with rate controlled A Fib. CXR with no change in the cardiomegaly, mild central pulm vascular congestion -Given 40 mg IV Lasix in ED. Plan to continue 40mg IV BID. Strict I&Os, daily weight, low sodium diet -Consider cardiology consult if patient does not clinically improve with diuresis -Currently saturating at 97% on 4L (baseline is 3L - wean as tolerated) (3) Chest pain: Presents with atypical chest pain occurring at rest, reproducible with palpation -Initial troponin negative. EKG with rate controlled atrial fibrillation, trend troponin, ntg PRN (4) Chronic atrial fibrillation: EKG with atrial fibrillation at 97 bpm -Continue Toprol twice daily -Continue Coumadin for anticoagulation -INR therapeutic at 2.3 (5) Diabetes mellitus, type II: Insulin per protocol while in-patient -BSG AC HS (6) HTN (hypertension): Continue Toprol (7) Dyslipidemia: Continue statin (8) NUVIA on CPAP: CPAP HS DVT Ppx: coumadin Code status: FULL PCP: Del Dispo: Admitted to [facility] Patient seen in collaboration with Dr. Gonzales. Please see addendum. History of Present Illness Chief Complaint: SOB, CP Primary Care Provider: Edison Mathis MD This is a 69yo F with a PMH of R sided heart failure, cor pulmonale, h/o brachial artery thrombus COPD, chronic respiratory failure on 3L NC O2, DM II, HTN, chronic A Fib on anticoagulation, PVD, NUVIA on CPAP, tobacco use and other medical problems listed below who presents with dyspnea on exertion and chest discomfort x 2 days. Had 3 servings of ham pot pie on Tuesday with increased fluid intake. Woke up on Tuesday with dyspnea on exertion and is requiring 4L NC O2, up from baseline of 2-3 L. Notes a 4 pound weight gain over the weekend and some increased swelling of her lower extremities. Also endorsing associated chest pain on left side that feels achy and sore to touch. Took SL ntg last evening which relieved pain. Denies fever, chills, visual changes, cough, palpitations, wheezing, nausea, vomiting, abdominal pain, dysuria, diarrhea or constipation. Allergies Allergy/AdvReac Type Severity Reaction Status Date / Time Penicillins Allergy Mild Unknown Verified 08/11/20 18:25 rofecoxib Allergy Unknown Unknown Verified 08/11/20 18:25 sulindac Allergy Unknown Unknown Verified 08/11/20 18: Home Medications Home Medications Medication Instructions Recorded Confirmed Type Lantus Solostar U-100 Insulin 54 unit SUBCUT DAILY 08/11/18 08/11/20 History atorvastatin 80 mg PO QAM 08/11/18 08/11/20 History nitroglycerin [Nitrostat] 0.4 mg SUBLINGUAL DIRECTED PRN 08/11/18 08/11/20 History metolazone 2.5 mg PO DIRECTED PRN 06/17/19 08/11/20 History torsemide 60 mg PO BID 10/22/19 08/11/20 History potassium chloride 20 meq PO DAILY 12/21/19 08/11/20 History Breo Ellipta 1 inh INHALATION QAM 01/22/20 08/11/20 History Humulin R Regular U-100 Insuln 0 unit SUBCUT .SLIDINGSCALE 01/22/20 08/11/20 History allopurinol 200 mg PO QAM 01/22/20 08/11/20 History digoxin 125 mcg PO 3XWK 01/22/20 08/11/20 History gabapentin 200 mg PO DAILY 01/22/20 08/11/20 History albuterol sulfate 2.5 mg INHALATION BID PRN 04/04/20 08/11/20 History citalopram 10 mg PO HS 04/04/20 08/11/20 History metoprolol succinate [Toprol XL] 150 mg PO DAILY 04/04/20 08/11/20 History acetaminophen [Tylenol] 650 mg PO Q4 PRN MDD 10 TABS/24 05/06/20 08/11/20 History HOURS cholecalciferol (vitamin D3) 2,000 unit PO QAM 05/06/20 08/11/20 History [Vitamin D3] cyanocobalamin (vitamin B-12) 1,000 mcg PO QAM 05/06/20 08/11/20 History [Vitamin B-12] warfarin 1.5 mg PO SUTU@1600 05/06/20 08/11/20 History bisacodyl 10 mg TX DAILY PRN 08/11/20 08/11/20 History docusate sodium 100 mg PO BID PRN 08/11/20 08/11/20 History gabapentin 300 mg PO HS 08/11/20 08/11/20 History insulin aspart U-100 [Novolog See Rx Instructions .ROUTE .COMPLEX 08/11/20 08/11/20 History Flexpen U-100 Insulin] iron,carbonyl-vitamin C [Vitron-C] 1 tab PO QAM 08/11/20 08/11/20 History polyethylene glycol 3350 17 g PO DAILY PRN 08/11/20 08/11/20 History potassium chloride 10 meq PO HS 08/11/20 08/11/20 History warfarin 3 mg PO MOWETHFRSA@1600 08/11/20 08/11/20 History Past Med/Surg History Medical History Anemia (11/27/13) Chronic atrial fibrillation Chronic respiratory failure with hypoxia CKD (chronic kidney disease) stage 3, GFR 30-59 ml/min Diabetes mellitus, type II Dyslipidemia HTN (hypertension) Lumbar radiculopathy NUVIA on CPAP Pickwickian syndrome Polymyalgia rheumatica Right-sided heart failure Tobacco use disorder Surgical History History of hysterectomy History of total knee replacement Family History Father Heart disease Stroke Mother Diabetes Social History Smoking Status: Former smoker Tobacco Type: Cigarettes Cigarettes Per Day: 10; Second Hand Exposure: No; Do You Dip or Chew Tobacco: No; Tobacco Cessation Education Requested by Patient: No Hx Alcohol Use: No Hx Substance Use: No Preferred Language: Northern Irish Communication Ability: Effective Senior Scrum Master Required: No Beliefs That Will Affect Care: None marital status: / Current Living Situation: Alone Feels Safe at Home: Yes Safety Concerns: Feels Safe At This Time Review of Systems Review of Systems: At least ten systems reviewed and negative except as noted in the HPI. Physical Exam Physical Exam: General Appearance: WD/WN, vitals as above, sitting in bedside chair, pleasant, conversationally dyspneic Head: normocephalic, atraumatic Eyes: normal inspection, PERRL, conjunctivae normal, anicteric sclerae ENT: external ear and nose normal, oropharynx normal Neck: normal visual inspection, trachea midline, no thyromegaly Respiratory: diminished lung sounds of bilateral bases, no wheeze, rales or rh onchi. No accessory muscle use Cardiovascular: regular rate, rhythm, no murmur appreciated, normal peripheral pulses, 2+ BLE edema. Vessels: + JVD Chest: normal inspection of chest. + TTP of chest wall Abdomen/GI: normal bowel sounds, soft, nontender, no hepatosplenomegaly Extremities/Musculoskeletal: venous stasis hyperpigmentation, no cyanosis or clubbing, extremities motor strength 5/5 Neurologic: PERRL, EOMI, accommodation nl, no face palsy, no dysarthria, CN's II-XI intact bilaterally and moves all extremities Psychiatric: A+Ox3, euthymic affect Skin: no rashes, normal color, warm/dry Results & Data Results & Data ([facility]) Vital Signs (Past 12 Hours) Vital Signs Temp Pulse Resp BP Pulse Ox 08/11/20 18:01 66 23 149/78 H 98 08/11/20 17:47 81 17 152/95 H 99 08/11/20 17:15 37.1 C 78 20 127/83 95 08/11/20 17:14 95 Laboratory Results Short CBC 08/11/20 Range/Units 17:30 WBC 9.38 (4.8-10.8) K/uL Hgb 10.9 L (12.0-16.0) g/dL Hct 35.3 L (37-47) % Plt Count 156 (130-400) K/uL BMP 08/11/20 17:30 Sodium 140 Potassium 3.7 Chloride 103 Carbon Dioxide 34 H BUN 36 H Creatinine 1.19 Glucose 150 H Calcium 9.2 Cardiac Enzymes 08/11/20 Range/Units 17:30 Troponin I < 0.015 (0-0.045) ng/ml Liver Function 08/11/20 Range/Units 17:30 Total Bilirubin 0.5 (0.2-1) mg/dl AST 7 L (15-37) U/L ALT 14 (12-78) U/L Alkaline Phosphatase 77 (45-117) U/L Albumin 3.3 L (3.4-5.0) gm/dl Diagnostic Findings CXR: IMPRESSION: No change in the cardiomegaly and mild central pulmonary vascular congestion. Code Status & VTE Plan VTE Prophylaxis Plan VTE Prophylaxis will be ordered: Yes Supervising Physician Co-Signing Physician Notes Pt was seen and examined. Agreed with Giuseppe RAYMOND exam, assessment and plan. 69yo F with a PMH of R sided heart failure, cor pulmonale, h/o brachial artery thrombus COPD, chronic respiratory failure on 3L NC O2, DM II, HTN, chronic A Fib on anticoagulation, PVD, NUVIA on CPAP, tobacco use presents with dyspnea associated with chest pain. Pt said that she had 3 servings of ham pot pie on Tuesday that caused her to drink a lot of water. She said that Tuesday she woke up with SOB and required more oxygen supplement. She said that she gained 4lbs. Pt said that today SOB worsening with minimal exertion. She said that she does have a sharp chest pain with deep breathing. CXR done in the ER showed mild central pulmonary vascular congestion without overt edema. ProBNP on admission elevated and initial troponin normal. EKG showed no acute ischemic changes. Received Lasix 40mg IV in the ER. Will continue lasix 40mg IV BID. Will trend troponin. Will get an echo in am. Consider cardiology consult if symptoms worsening or if troponin elevates. Monitor I/O. Monitor BMP while on IV lasix. Continue oxygen supplement. Will continue monitor closely in telemetry. 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
[2020-08-11] MEDS ORDERED: ACETAMINOPHEN 325 MG TAB PO PRN (19:45)
[2020-08-11] MEDS ORDERED: POLYETHYLENE (MIRALAX) 17 GM PACK PO PRN (19:45)
[2020-08-11] MEDS ORDERED: ONDANSETRON INJ 2 MG/ML 2 ML VIAL IV PRN (19:45)
[2020-08-11] MEDS ORDERED: DOCUSATE SODIUM 100 MG CAP PO PRN (20:17)
[2020-08-11] MEDS ORDERED: ALBUTEROL 0.083% NEBU SOLN 3 ML VIAL INH PRN (20:17)
[2020-08-11] MEDS ORDERED: bisacodyL 10 MG SUPP PR PRN (20:17)
[2020-08-11] MEDS ORDERED: GLUCOSE 40% GEL 15 GM TUBE PO PRN (20:18)
[2020-08-11] MEDS ORDERED: GLUCOSE 10 TABS/TUBE PO PRN (20:18)
[2020-08-11] MEDS ORDERED: CARBOHYDRATES FOR HYPOGLYCEMIA PO PRN (20:18)
[2020-08-11] MEDS ORDERED: DEXTROSE 50% 50 ML SYRINGE IV PRN (20:18)
[2020-08-11] MEDS ORDERED: GLUCAGON FOR INJ 1 MG VIAL SQ PRN (20:18)
[2020-08-11] MEDS: DIGOXIN 0.125 MG TAB PO SCH (21:02)
[2020-08-11] MEDS: CITALOPRAM 20 MG TAB PO SCH (21:03)
[2020-08-11] MEDS: POTASSIUM CHLORIDE 10 MEQ TABCR PO SCH (21:04)
[2020-08-11] MEDS: GABAPENTIN 300 MG CAP PO SCH (21:04)
[2020-08-11] MEDS: INSULIN GLARGINE SOLOSTAR 100 UNITS/ML 3 ML PEN SC SCH (21:05)
[2020-08-11] MEDS: INSULIN ASPART 100 UNITS/ML 3 ML PEN SC SCH (21:07)
[2020-08-12 06:36] LABS: INR 1.9 (0.9-1.1); Prothrombin Time 19.5 Seconds (9.0-12.0)
[2020-08-12] MEDS: FUROSEMIDE 40 MG in SYRINGE 0 ML IV SCH ×2 (07:41→16:05)
[2020-08-12] MEDS: CHOLECALCIFEROL 1,000 UNITS 25 MCG TAB PO SCH (07:42)
[2020-08-12] MEDS: ATORVASTATIN 40 MG TAB PO SCH (07:42)
[2020-08-12] MEDS: GABAPENTIN 100 MG CAP PO SCH (07:43)
[2020-08-12] MEDS: POTASSIUM CHLORIDE 20 MEQ TABCR PO SCH (07:43)
[2020-08-12] MEDS: CYANOCOBALAMIN 500 MCG TABLET (VITAMIN B-12) PO SCH (07:43)
[2020-08-12] MEDS: METOPROLOL SUCC 50MG EXT REL TAB PO SCH (07:44)
[2020-08-12] MEDS: allopurinoL 100 MG TAB PO SCH (07:44)
[2020-08-12] MEDS: FLUTICASONE/VILANTEROL 100/25MCG 14 PUFFS/INHALER INH SCH (08:42)
[2020-08-12] MEDS: INSULIN ASPART 100 UNITS/ML 3 ML PEN SC SCH ×4 (08:43→20:43)
[2020-08-12] MEDS: INSULIN GLARGINE SOLOSTAR 100 UNITS/ML 3 ML PEN SC SCH ×2 (08:44→20:45)
[2020-08-12 09:37] LABS: BUN Creatinine Ratio 29.4 (10-20); Calcium 9.4 mg/dl (8.5-10.1); Creatinine Clr Calc Pharmacy 48.5 ml/min; Est GFR (African American) 54.1; Est GFR (Non-African American) 46.7; Magnesium 2.1 mg/dl (1.8-2.4); Phosphorus 3.2 mg/dl (2.5-4.9); Potassium 3.7 mmol/L (3.5-5.1)
[2020-08-12 11:11] LABS: Appearance Urine Cloudy (Clear); Bacteria Urine Automated Negative (Negative); Bilirubin Urine Negative (Negative); Blood Urine Negative (Negative); Color Urine Yellow; Epithelial Cell Urine Auto >30 /lpf (0-5); Glucose Urine UA Negative (Negative); Ketones Urine Negative (Negative); Leukocyte Esterase Urine Trace (Negative); Nitrite Urine Negative (Negative); Protein Urine Negative (Negative); RBC Urine Automated 0-4 /hpf (0-4); Urobilinogen Urine Negative (Negative); pH Urine 6.5 (4.5-7.5)
--- NOTE | 2020-08-12 15:00 | Hospitalist Progress Note ---
Date of Service August 12, 2020 Assessment & Plan (1) Acute exacerbation of congestive heart failure: (2) Acute on chronic respiratory failure: This is a 69yo F with a PMH of R sided heart failure, cor pulmonale, h/o brachial artery thrombus COPD, chronic respiratory failure on 3L NC O2, DM II, HTN, chronic A Fib on anticoagulation, PVD, NUVIA on CPAP, tobacco use who presents with dyspnea on exertion and chest discomfort x 2 days. Clinically much improved, currently denies any chest pain, and breathing improved -Dyspnea on exertion, CP, BLE edema in setting of non-compliance with diet -BNP elevated at 4,300. Initial troponin negative. EKG with rate controlled A Fib. CXR with no change in the cardiomegaly, mild central pulm vascular congestion -Given 40 mg IV Lasix in ED. Plan to continue 40mg IV BID. Strict I&Os, daily weight, low sodium diet -Consider cardiology consult if patient does not clinically improve with diuresis -Echocardiogram obtained - Shows flattened septum consistent with RV pressure overload. EF 55 to 60%, moderate concentric LVH, RV moderately dilated, RV systolic function moderately reduced, right RV systolic pressure elevated at over 60 mmHg. Severe pulmonary hypertension. -Currently saturating at 93% on 3L (baseline) (3) Chest pain: Presents with atypical chest pain occurring at rest, reproducible with palpation -Troponin x3 negative. EKG with rate controlled atrial fibrillation, ntg PRN -Patient currently denies any chest pain/ resolved (4) Chronic atrial fibrillation: EKG with atrial fibrillation at 97 bpm -Continue Toprol twice daily -Continue Coumadin for anticoagulation -INR therapeutic at 2.3 (5) Diabetes mellitus, type II: Insulin per protocol while in-patient -BSG AC HS (6) HTN (hypertension): Continue Toprol (7) Dyslipidemia: Continue statin (8) NUVIA on CPAP: CPAP HS DVT Ppx: coumadin Code status: FULL PCP: Dr. Mathis Dispo: Admitted to [facility] Admission and Anticipated Discharge Date Admission Date: August 11, 2020 Subjective Patient is sitting up in chair, in no acute distress. She says that she feels much better now. Currently denies any chest pain or shortness of breath. Says she has been diure sing well. She confirms that she was eating too much ham. Echo results pending. Review of Systems Review of Systems: All systems reviewed & are unremarkable except as noted in HPI & below Constitutional: no fever and no chills Respiratory: no cough and no dyspnea Cardiovascular: no chest pain and no palpitations Gastrointestinal: no abdominal pain, no nausea and no vomiting Physical Exam Physical Exam: General Appearance: Morbidly obese female sitting in a chair, in no acute distress, nasal cannula applied Head: normocephalic, atraumatic Eyes: normal inspection, PERRL, conjunctivae normal, anicteric sclerae ENT: external ear and nose normal, oropharynx normal Neck: normal visual inspection, trachea midline, no thyromegaly Respiratory: diminished lung sounds of bilateral bases, no wheeze, rales or rhonchi. No accessory muscle use Cardiovascular: regular rate, rhythm, no murmur appreciated, normal peripheral pulses, 1-2+ BLE edema. Chest: normal inspection of chest Abdomen/GI: normal bowel sounds, soft, nontender to palpation Extremities/Musculoskeletal: venous stasis hyperpigmentation, no cyanosis or clubbing, extremities motor strength 5/5 Neurologic: PERRL, EOMI, accommodation nl, no face palsy, no dysarthria, moves all extremities Psychiatric: A+Ox3, euthymic affect Skin: no rashes, normal color, warm/dry Results & Data Results & Data ([facility]) Vital Signs (Past 12 Hours) Vital Signs Temp Pulse Pulse Resp BP Pulse Ox 08/12/20 11:25 36.6 C 77 20 141/68 H 94 08/12/20 07:43 36.8 C 75 18 151/57 H 94 08/12/20 03:08 36.6 C 70 19 120/59 L 91 08/12/20 03:05 77 16 93 Laboratory Results 08/12/20 08/12/20 08/12/20 Range/Units 11:31 11:00 08:14 WBC (4.8-10.8) K/uL RBC (4.2-5.4) M/uL Hgb (12.0-16.0) g/dL Hct (37-47) % MCV (80-100) fL MCH (25-34) pg MCHC (32-36) g/dL RDW Std Deviation (36.4-46.3) fL RDW Coeff of Patrick (11.5-14.5) % Plt Count (130-400) K/uL MPV (7.4-10.4) fL Immature Gran % (Auto) % Neut % (Auto) % Lymph % (Auto) % [place] % (Auto) % Eos % (Auto) % Baso % (Auto) % Neut # (Auto) (1.4-6.5) K/uL Lymph # (Auto) (1.2-3.4) K/uL [place] # (Auto) (0.11-0.59) K/uL Eos # (Auto) (0-0.5) K/uL Baso # (Auto) (0-0.2) K/uL Immature Gran # (Auto) (0.00-0.02) K/uL PT (9.0-12.0) Seconds INR (0.9-1.1) APTT (21.0-31.0) Seconds PTT Ratio Sodium 143 (136-145) mmol/L Potassium 3.7 (3.5-5.1) mmol/L Chloride 105 (98-107) mmol/L Carbon Dioxide 31 (21-32) mmol/L Anion Gap 7.0 (3-11) BUN 35 H (7-18) mg/dl Creatinine 1.18 (0.6-1.2) mg/dl Est Cr Clr Drug Dosing 48.5 ml/min Est GFR ( Amer) 54.1 Est GFR (Non-Af Amer) 46.7 BUN/Creatinine Ratio 29.4 H (10-20) Glucose 140 H (70-99) mg/dl POC Glucose 212 H (70-99) mg/dl Calcium 9.4 (8.5-10.1) mg/dl Phosphorus 3.2 (2.5-4.9) mg/dl Magnesium 2.1 (1.8-2.4) mg/dl Total Bilirubin (0.2-1) mg/dl AST (15-37) U/L ALT (12-78) U/L Alkaline Phosphatase (45-117) U/L Troponin I (0-0.045) ng/ml NT-Pro-B Natriuret Pep (0-900) pg/ml Total Protein (6.4-8.2) gm/dl Albumin (3.4-5.0) gm/dl Globulin (2.5-4.0) gm/dl Albumin/Globulin Ratio (0.9-2) Urine Color Yellow Urine Appearance Cloudy A (Clear) Urine pH 6.5 (4.5-7.5) Ur Specific [place] 1.010 (1.000-1.030) Urine Protein Negative (Negative) Urine Glucose (UA) Negative (Negative) Urine Ketones Negative (Negative) Urine Blood Negative (Negative) Urine Nitrite Negative (Negative) Urine Bilirubin Negative (Negative) Urine Urobilinogen Negative (Negative) Ur Leukocyte Esterase Trace H (Negative) Urine WBC (Auto) 10-30 H (0-5) /hpf Urine RBC (Auto) 0-4 (0-4) /hpf U Hyaline Cast (Auto) 5-10 H (0-5) /lpf U Epithel Cells (Auto) >30 H (0-5) /lpf Urine Bacteria (Auto) Negative (Negative) Urine Yeast Present A (None Prsent) Digoxin (0.8-2.0) ng/ml 08/12/20 08/12/20 08/12/20 Range/Units 07:33 05:58 05:58 WBC (4.8-10.8) K/uL RBC (4.2-5.4) M/uL Hgb (12.0-16.0) g/dL Hct (37-47) % MCV (80-100) fL MCH (25-34) pg MCHC (32-36) g/dL RDW Std Deviation (36.4-46.3) fL RDW Coeff of Patrick (11.5-14.5) % Plt Count (130-400) K/uL MPV (7.4-10.4) fL Immature Gran % (Auto) % Neut % (Auto) % Lymph % (Auto) % [place] % (Auto) % Eos % (Auto) % Baso % (Auto) % Neut # (Auto) (1.4-6.5) K/uL Lymph # (Auto) (1.2-3.4) K/uL [place] # (Auto) (0.11-0.59) K/uL Eos # (Auto) (0-0.5) K/uL Baso # (Auto) (0-0.2) K/uL Immature Gran # (Auto) (0.00-0.02) K/uL PT 19.5 H (9.0-12.0) Seconds INR 1.9 H (0.9-1.1) APTT (21.0-31.0) Seconds PTT Ratio Sodium (136-145) mmol/L Potassium (3.5-5.1) mmol/L Chloride (98-107) mmol/L Carbon Dioxide (21-32) mmol/L Anion Gap (3-11) BUN (7-18) mg/dl Creatinine (0.6-1.2) mg/dl Est Cr Clr Drug Dosing ml/min Est GFR ( Amer) Est GFR (Non-Af Amer) BUN/Creatinine Ratio (10-20) Glucose (70-99) mg/dl POC Glucose 145 H (70-99) mg/dl Calcium (8.5-10.1) mg/dl Phosphorus (2.5-4.9) mg/dl Magnesium (1.8-2.4) mg/dl Total Bilirubin (0.2-1) mg/dl AST (15-37) U/L ALT (12-78) U/L Alkaline Phosphatase (45-117) U/L Troponin I < 0.015 (0-0.045) ng/ml NT-Pro-B Natriuret Pep (0-900) pg/ml Total Protein (6.4-8.2) gm/dl Albumin (3.4-5.0) gm/dl Globulin (2.5-4.0) gm/dl Albumin/Globulin Ratio (0.9-2) Urine Color Urine Appearance (Clear) Urine pH (4.5-7.5) Ur Specific [place] (1.000-1.030) Urine Protein (Negative) Urine Glucose (UA) (Negative) Urine Ketones (Negative) Urine Blood (Negative) Urine Nitrite (Negative) Urine Bilirubin (Negative) Urine Urobilinogen (Negative) Ur Leukocyte Esterase (Negative) Urine WBC (Auto) (0-5) /hpf Urine RBC (Auto) (0-4) /hpf U Hyaline Cast (Auto) (0-5) /lpf U Epithel Cells (Auto) (0-5) /lpf Urine Bacteria (Auto) (Negative) Urine Yeast (None Prsent) Digoxin (0.8-2.0) ng/ml 08/11/20 08/11/20 08/11/20 Range/Units 23:10 20:34 17:30 WBC (4.8-10.8) K/uL RBC (4.2-5.4) M/uL Hgb (12.0-16.0) g/dL Hct (37-47) % MCV (80-100) fL MCH (25-34) pg MCHC (32-36) g/dL RDW Std Deviation (36.4-46.3) fL RDW Coeff of Patrick (11.5-14.5) % Plt Count (130-400) K/uL MPV (7.4-10.4) fL Immature Gran % (Auto) % Neut % (Auto) % Lymph % (Auto) % [place] % (Auto) % Eos % (Auto) % Baso % (Auto) % Neut # (Auto) (1.4-6.5) K/uL Lymph # (Auto) (1.2-3.4) K/uL [place] # (Auto) (0.11-0.59) K/uL Eos # (Auto) (0-0.5) K/uL Baso # (Auto) (0-0.2) K/uL Immature Gran # (Auto) (0.00-0.02) K/uL PT (9.0-12.0) Seconds INR (0.9-1.1) APTT (21.0-31.0) Seconds PTT Ratio Sodium (136-145) mmol/L Potassium (3.5-5.1) mmol/L Chloride (98-107) mmol/L Carbon Dioxide (21-32) mmol/L Anion Gap (3-11) BUN (7-18) mg/dl Creatinine (0.6-1.2) mg/dl Est Cr Clr Drug Dosing ml/min Est GFR ( Amer) Est GFR (Non-Af Amer) BUN/Creatinine Ratio (10-20) Glucose (70-99) mg/dl POC Glucose 153 H (70-99) mg/dl Calcium (8.5-10.1) mg/dl Phosphorus (2.5-4.9) mg/dl Magnesium (1.8-2.4) mg/dl Total Bilirubin (0.2-1) mg/dl AST (15-37) U/L ALT (12-78) U/L Alkaline Phosphatase (45-117) U/L Troponin I < 0.015 (0-0.045) ng/ml NT-Pro-B Natriuret Pep (0-900) pg/ml Total Protein (6.4-8.2) gm/dl Albumin (3.4-5.0) gm/dl Globulin (2.5-4.0) gm/dl Albumin/Globulin Ratio (0.9-2) Urine Color Urine Appearance (Clear) Urine pH (4.5-7.5) Ur Specific [place] (1.000-1.030) Urine Protein (Negative) Urine Glucose (UA) (Negative) Urine Ketones (Negative) Urine Blood (Negative) Urine Nitrite (Negative) Urine Bilirubin (Negative) Urine Urobilinogen (Negative) Ur Leukocyte Esterase (Negative) Urine WBC (Auto) (0-5) /hpf Urine RBC (Auto) (0-4) /hpf U Hyaline Cast (Auto) (0-5) /lpf U Epithel Cells (Auto) (0-5) /lpf Urine Bacteria (Auto) (Negative) Urine Yeast (None Prsent) Digoxin 0.3 L (0.8-2.0) ng/ml 08/11/20 08/11/20 08/11/20 Range/Units 17:30 17:30 17:30 WBC 9.38 (4.8-10.8) K/uL RBC 3.72 L (4.2-5.4) M/uL Hgb 10.9 L (12.0-16.0) g/dL Hct 35.3 L (37-47) % MCV 94.9 (80-100) fL MCH 29.3 (25-34) pg MCHC 30.9 L (32-36) g/dL RDW Std Deviation 55.7 H (36.4-46.3) fL RDW Coeff of Patrick 16.0 H (11.5-14.5) % Plt Count 156 (130-400) K/uL MPV 10.0 (7.4-10.4) fL Immature Gran % (Auto) 0.3 % Neut % (Auto) 77.2 % Lymph % (Auto) 16.2 % [place] % (Auto) 4.8 % Eos % (Auto) 1.2 % Baso % (Auto) 0.3 % Neut # (Auto) 7.24 H (1.4-6.5) K/uL Lymph # (Auto) 1.52 (1.2-3.4) K/uL [place] # (Auto) 0.45 (0.11-0.59) K/uL Eos # (Auto) 0.11 (0-0.5) K/uL Baso # (Auto) 0.03 (0-0.2) K/uL Immature Gran # (Auto) 0.03 H (0.00-0.02) K/uL PT 23.6 H (9.0-12.0) Seconds INR 2.3 H (0.9-1.1) APTT 35.6 H (21.0-31.0) Seconds PTT Ratio 1.3 Sodium 140 (136-145) mmol/L Potassium 3.7 (3.5-5.1) mmol/L Chloride 103 (98-107) mmol/L Carbon Dioxide 34 H (21-32) mmol/L Anion Gap 3.0 (3-11) BUN 36 H (7-18) mg/dl Creatinine 1.19 (0.6-1.2) mg/dl Est Cr Clr Drug Dosing 50.0 ml/min Est GFR ( Amer) 53.6 Est GFR (Non-Af Amer) 46.2 BUN/Creatinine Ratio 30.6 H (10-20) Glucose 150 H (70-99) mg/dl POC Glucose (70-99) mg/dl Calcium 9.2 (8.5-10.1) mg/dl Phosphorus (2.5-4.9) mg/dl Magnesium 2.0 (1.8-2.4) mg/dl Total Bilirubin 0.5 (0.2-1) mg/dl AST 7 L (15-37) U/L ALT 14 (12-78) U/L Alkaline Phosphatase 77 (45-117) U/L Troponin I < 0.015 (0-0.045) ng/ml NT-Pro-B Natriuret Pep 4307 H (0-900) pg/ml Total Protein 6.7 (6.4-8.2) gm/dl Albumin 3.3 L (3.4-5.0) gm/dl Globulin 3.4 (2.5-4.0) gm/dl Albumin/Globulin Ratio 1.0 (0.9-2) Urine Color Urine Appearance (Clear) Urine pH (4.5-7.5) Ur Specific [place] (1.000-1.030) Urine Protein (Negative) Urine Glucose (UA) (Negative) Urine Ketones (Negative) Urine Blood (Negative) Urine Nitrite (Negative) Urine Bilirubin (Negative) Urine Urobilinogen (Negative) Ur Leukocyte Esterase (Negative) Urine WBC (Auto) (0-5) /hpf Urine RBC (Auto) (0-4) /hpf U Hyaline Cast (Auto) (0-5) /lpf U Epithel Cells (Auto) (0-5) /lpf Urine Bacteria (Auto) (Negative) Urine Yeast (None Prsent) Digoxin (0.8-2.0) ng/ml (1) Acute exacerbation of congestive heart failure Heart failure type: unspecified Qualified Code(s): I50.9 - Heart failure, unspecified (2) Chest pain Chest pain type: unspecified Qualified Code(s): R07.9 - Chest pain, unspecified (3) Diabetes mellitus, type II Diabetes mellitus shelter insulin use: unspecified shelter insulin use status Diabetes mellitus complication status: with kidney complications Diabetes mellitus complication detail: with chronic kidney disease (4) HTN (hypertension) Hypertension type: unspecified Qualified Code(s): I10 - Essential (primary) hypertension
--- NOTE | 2020-08-12 15:08 | Electrocardiogram Report ---
Test Reason : Blood Pressure : / mmHG Vent. Rate : 071 BPM Atrial Rate : 046 BPM P-R Int : 000 ms QRS Dur : 078 ms QT Int : 384 ms P-R-T Axes : 000 039 037 degrees QTc Int : 417 ms Poor data quality, interpretation may be adversely affected Atrial fibrillation with premature ventricular or aberrantly conducted complexes Abnormal ECG When compared with ECG of 05-MAY-2020 23:10, No significant change was found Confirmed by Santana Wynn ([id number]) on 08/12/2020 3:08:14 PM Referred By: REFERRED SELF Confirmed By:Santana Wynn
--- NOTE | 2020-08-12 15:12 | Electrocardiogram Report ---
Test Reason : Blood Pressure : / mmHG Vent. Rate : 074 BPM Atrial Rate : 394 BPM P-R Int : 000 ms QRS Dur : 084 ms QT Int : 408 ms P-R-T Axes : 000 035 087 degrees QTc Int : 452 ms Atrial fibrillation Nonspecific ST and T wave abnormality Abnormal ECG When compared with ECG of 11-AUG-2020 17:09, (unconfirmed) Nonspecific T wave abnormality no longer evident in Inferior leads Confirmed by Santana Wynn ([id number]) on 08/12/2020 3:12:27 PM Referred By: REFERRED SELF Confirmed By:Santana Wynn
--- NOTE | 2020-08-12 15:14 | Electrocardiogram Report ---
Test Reason : Blood Pressure : / mmHG Vent. Rate : 076 BPM Atrial Rate : 000 BPM P-R Int : 000 ms QRS Dur : 084 ms QT Int : 406 ms P-R-T Axes : 000 047 116 degrees QTc Int : 456 ms Atrial fibrillation Nonspecific ST and T wave abnormality Abnormal ECG When compared with ECG of 11-AUG-2020 22:10, (unconfirmed) No significant change was found Confirmed by Santana Wynn ([id number]) on 08/12/2020 3:14:29 PM Referred By: REFERRED SELF Confirmed By:Santana Wynn
[2020-08-12] MEDS ORDERED: WARFARIN SOD 1 MG TAB PO SCH (16:00)
[2020-08-12] MEDS ORDERED: WARFARIN SOD 0.5 MG TAB PO SCH (16:00)
[2020-08-12] MEDS ORDERED: POTASSIUM CHLORIDE 20 MEQ TABCR PO STA (18:27)
[2020-08-12] MEDS ORDERED: FUROSEMIDE 20 MG in SYRINGE 0 ML IV ONE (19:00)
[2020-08-12] MEDS: CITALOPRAM 20 MG TAB PO SCH (20:06)
[2020-08-12] MEDS: POTASSIUM CHLORIDE 10 MEQ TABCR PO SCH (20:06)
[2020-08-12] MEDS: GABAPENTIN 300 MG CAP PO SCH (20:07)
[2020-08-12] MEDS: NITROGLYCERIN SL 0.4 MG/TAB TAB SL PRN ×2 (20:43→21:13)
[2020-08-12 21:19] LABS: INR 1.8 (0.9-1.1); Prothrombin Time 18.5 Seconds (9.0-12.0)
[2020-08-12] MEDS ORDERED: MICONAZOLE NITRATE POWDER 43 GM EXT PRN (22:14)
--- NOTE | 2020-08-12 22:18 | Communication Note ---
Date of Service: August 12, 2020 Patient complaining of achy left-sided chest pain under the breast without radiation. No shortness of breath, no cough symptoms, no prior episodes. Chest pain improved by nitroglycerin administration. PPE CHEST: Tender erythematous induration, left inframammary area, CTA HEART : Irregular, no obvious murmur EKG as per my interpretation rate 80, A. fib, normal axis, T wave abnormalities anterolateral leads troponin negative INR 1.8 AP Chest pain relieved by nitro rule out ACS Intertrigo, left inframammary area Aspirin for now for CAD prevention Follow troponin Cardiology consult RE chest pain relieved by nitroglycerin N.p.o. after midnight, hold Coumadin until patient seen by Cardiology. IV heparin while Coumadin on hold while INR subtherapeutic Topical antifungal for intertrigo Will relay to AM provider.
[2020-08-12] MEDS ORDERED: ASPIRIN 81 MG ECTAB PO ONE (22:45)
[2020-08-12 23:00] LABS: Partial Thromboplastin Ratio 1.2; Partial Thromboplastin Time 32.5 Seconds (21.0-31.0)
[2020-08-12] MEDS: MICONAZOLE NITRATE POWDER 43 GM EXT SCH (23:13)
[2020-08-12] MEDS: HEPARIN SODIUM/DEXTROSE 25,000 UNITS/500 ML BAG IV SCH (23:49)
[2020-08-13] MEDS: Heparin IV Standard *NO* Bolus IV SCH (00:19)
[2020-08-13 06:29] LABS: Basophils # (auto) 0.02 K/uL (0-0.2); Basophils % (auto) 0.3 %; Eosinophils # (auto) 0.13 K/uL (0-0.5); Eosinophils % (auto) 1.7 %; Hematocrit (blood only) 35.9 % (37-47); Hemoglobin 11.1 g/dL (12.0-16.0); Immature Granulocytes # (auto) 0.03 K/uL (0.00-0.02); Immature Granulocytes % (auto) 0.4 %; Lymphocytes # (auto) 1.75 K/uL (1.2-3.4); Lymphocytes % (auto) 22.7 %; Mean Corpuscular Hemoglobin 29.8 pg (25-34); Mean Corpuscular Hgb Conc 30.9 g/dL (32-36); Mean Corpuscular Volume 96.2 fL (80-100); Mean Platelet Volume 9.9 fL (7.4-10.4); Monocytes # (auto) 0.37 K/uL (0.11-0.59); Monocytes % (auto) 4.8 %; Neutrophils # (auto) 5.41 K/uL (1.4-6.5); Neutrophils % (auto) 70.1 %; Platelet Count 165 K/uL (130-400); RDW Coefficient of Variation 16.2 % (11.5-14.5); RDW Standard Deviation 55.8 fL (36.4-46.3); Red Blood Count 3.73 M/uL (4.2-5.4); White Blood Count 7.71 K/uL (4.8-10.8)
[2020-08-13 06:51] LABS: INR 1.7 (0.9-1.1); Partial Thromboplastin Ratio 1.7; Prothrombin Time 17.2 Seconds (9.0-12.0)
[2020-08-13 06:52] LABS: Partial Thromboplastin Time 48.3 Seconds (21.0-31.0)
[2020-08-13 06:53] LABS: BUN Creatinine Ratio 34.3 (10-20); Blood Urea Nitrogen 41 mg/dl (7-18); Calcium 9.4 mg/dl (8.5-10.1); Carbon Dioxide 34 mmol/L (21-32); Chloride 108 mmol/L (98-107); Creatinine Clr Calc Pharmacy 49.4 ml/min; Est GFR (African American) 54.1; Est GFR (Non-African American) 46.7; Glucose 139 mg/dl (70-99); Magnesium 2.2 mg/dl (1.8-2.4); Potassium 3.7 mmol/L (3.5-5.1); Sodium 144 mmol/L (136-145)
[2020-08-13 06:59] LABS: Chol HDL Ratio 3; Cholesterol 70 mg/dl (0-200); HDL Cholesterol 24 mg/dl; LDL Cholesterol Calculated 26 mg/dl; Triglycerides 100 mg/dl (0-150); Troponin I < 0.015 ng/ml (0-0.045); VLDL Cholesterol 20 mg/dl
--- NOTE | 2020-08-13 07:10 | Hospitalist Progress Note ---
Date of Service August 13, 2020 Assessment & Plan (1) Acute exacerbation of congestive heart failure: (2) Acute on chronic respiratory failure: This is a 69yo F with a PMH of R sided heart failure, cor pulmonale, h/o brachial artery thrombus COPD, chronic respiratory failure on 3L NC O2, DM II, HTN, chronic A Fib on anticoagulation, PVD, NUVIA on CPAP, tobacco use who presents with dyspnea on exertion and chest discomfort x 2 days. Clinically much improved, currently denies any chest pain, and breathing improved -Dyspnea on exertion, CP, BLE edema in setting of non-compliance with diet -BNP elevated at 4,300. Initial troponin negative. EKG with rate controlled A Fib. CXR with no change in the cardiomegaly, mild central pulm vascular congestion -Given 40 mg IV Lasix in ED. Plan to continue 40mg IV BID. Strict I&Os, daily weight, low sodium diet -Consider cardiology consult if patient does not clinically improve with diuresis -Echocardiogram obtained - Shows flattened septum consistent with RV pressure overload. EF 55 to 60%, moderate concentric LVH, RV moderately dilated, RV systolic function moderately reduced, right RV systolic pressure elevated at over 60 mmHg. Severe pulmonary hypertension. -Currently saturating at 95% on 3L (baseline) -Patient experienced chest pain overnight, and therefore cardiology was consulted, recommend to continue diuresis, IV heparin was started overnight -Appreciate cardiology recommendations (3) Chest pain: Presents with atypical chest pain occurring at rest, reproducible with palpation -Troponin x3 negative. EKG with rate controlled atrial fibrillation, ntg PRN -next day patient denied any chest pain/ resolved, however CP re-occurred overnight, resolved w/ nitro - cardiology consulted (4) Chronic atrial fibrillation: EKG with atrial fibrillation at 97 bpm on admission -Continued Toprol twice daily -INR therapeutic at 2.3 -Continued Coumadin for anticoagulation on admission but switched overnight to IV heparin d/t report of chest pain (5) Diabetes mellitus, type II: Insulin per protocol while in-patient -BSG AC HS (6) HTN (hypertension): Continue Toprol (7) Dyslipidemia: Continue statin (8) NUVIA on CPAP: CPAP HS DVT Ppx: coumadin Code status: FULL PCP: Dr. Mathis Dispo: Admitted to [facility] Admission and Anticipated Discharge Date Admission Date: August 11, 2020 Subjective Patient is sitting up in chair, in no acute distress. She says that she feels well now and currently denies any chest pain or shortness of breath. However she reported chest pain overnight, which responded to nitro, and th erefore packaging engineer was notified and patient was started on IV heparin, cardiology was consulted. She also was found to have significant erythematous rash under her breasts, and miconazole powder was started. Review of Systems Review of Systems: All systems reviewed & are unremarkable except as noted in HPI & below Constitutional: no fever and no chills Respiratory: no cough and no dyspnea Cardiovascular: no chest pain and no palpitations Gastrointestinal: no abdominal pain, no nausea and no vomiting Physical Exam Physical Exam: General Appearance: Morbidly obese female sitting in a chair, in no acute distress, nasal cannula applied Head: normocephalic, atraumatic Eyes: normal inspection, PERRL, conjunctivae normal, anicteric sclerae ENT: external ear and nose normal, oropharynx normal Neck: normal visual inspection, trachea midline, no thyromegaly Respiratory: diminished lung sounds of bilateral bases, no wheezes, rales or rhonchi. No accessory muscle use Cardiovascular: regular rate, rhythm, no murmur appreciated, normal peripheral pulses, 1-2+ BLE edema. Chest: normal inspection of chest Abdomen/GI: normal bowel sounds, soft, nontender to palpation Extremities/Musculoskeletal: venous stasis hyperpigmentation, no cyanosis or clubbing, extremities motor strength 5/5 Neurologic: PERRL, EOMI, no face palsy, no dysarthria, moves all extremities Psychiatric: A+Ox3, euthymic affect Skin: normal color, warm/dry Results & Data Results & Data ([facility]) Vital Signs (Past 12 Hours) Vital Signs Temp Pulse Pulse Resp BP Pulse Ox 08/13/20 03:17 54 L 20 132/77 97 08/13/20 03:10 96 H 19 97 08/13/20 00:00 73 08/12/20 23:11 71 25 H 99 08/12/20 22:31 36.8 C 58 L 20 124/63 92 08/12/20 21:13 131/79 08/12/20 20:42 76 136/67 Laboratory Results 08/13/20 08/13/20 08/13/20 Range/Units 05:52 05:52 05:52 WBC 7.71 (4.8-10.8) K/uL RBC 3.73 L (4.2-5.4) M/uL Hgb 11.1 L (12.0-16.0) g/dL Hct 35.9 L (37-47) % MCV 96.2 (80-100) fL MCH 29.8 (25-34) pg MCHC 30.9 L (32-36) g/dL RDW Std Deviation 55.8 H (36.4-46.3) fL RDW Coeff of Patrick 16.2 H (11.5-14.5) % Plt Count 165 (130-400) K/uL MPV 9.9 (7.4-10.4) fL Immature Gran % (Auto) 0.4 % Neut % (Auto) 70.1 % Lymph % (Auto) 22.7 % [place] % (Auto) 4.8 % Eos % (Auto) 1.7 % Baso % (Auto) 0.3 % Neut # (Auto) 5.41 (1.4-6.5) K/uL Lymph # (Auto) 1.75 (1.2-3.4) K/uL [place] # (Auto) 0.37 (0.11-0.59) K/uL Eos # (Auto) 0.13 (0-0.5) K/uL Baso # (Auto) 0.02 (0-0.2) K/uL Immature Gran # (Auto) 0.03 H (0.00-0.02) K/uL PT 17.2 H (9.0-12.0) Seconds INR 1.7 H (0.9-1.1) APTT 48.3 H* (21.0-31.0) Seconds PTT Ratio 1.7 Sodium 144 (136-145) mmol/L Potassium 3.7 (3.5-5.1) mmol/L Chloride 108 H (98-107) mmol/L Carbon Dioxide 34 H (21-32) mmol/L Anion Gap 2.0 L (3-11) BUN 41 H (7-18) mg/dl Creatinine 1.18 (0.6-1.2) mg/dl Est Cr Clr Drug Dosing 49.4 ml/min Est GFR ( Amer) 54.1 Est GFR (Non-Af Amer) 46.7 BUN/Creatinine Ratio 34.3 H (10-20) Glucose 139 H (70-99) mg/dl POC Glucose (70-99) mg/dl Calcium 9.4 (8.5-10.1) mg/dl Phosphorus (2.5-4.9) mg/dl Magnesium 2.2 (1.8-2.4) mg/dl Troponin I < 0.015 (0-0.045) ng/ml Triglycerides 100 (0-150) mg/dl Cholesterol 70 (0-200) mg/dl LDL Cholesterol, Calc 26 mg/dl VLDL Cholesterol, Calc 20 mg/dl HDL Cholesterol 24 mg/dl Cholesterol/HDL Ratio 3 Urine Color Urine Appearance (Clear) Urine pH (4.5-7.5) Ur Specific [place] (1.000-1.030) Urine Protein (Negative) Urine Glucose (UA) (Negative) Urine Ketones (Negative) Urine Blood (Negative) Urine Nitrite (Negative) Urine Bilirubin (Negative) Urine Urobilinogen (Negative) Ur Leukocyte Esterase (Negative) Urine WBC (Auto) (0-5) /hpf Urine RBC (Auto) (0-4) /hpf U Hyaline Cast (Auto) (0-5) /lpf U Epithel Cells (Auto) (0-5) /lpf Urine Bacteria (Auto) (Negative) Urine Yeast (None Prsent) 08/12/20 08/12/20 08/12/20 Range/Units 22:33 20:47 20:47 WBC (4.8-10.8) K/uL RBC (4.2-5.4) M/uL Hgb (12.0-16.0) g/dL Hct (37-47) % MCV (80-100) fL MCH (25-34) pg MCHC (32-36) g/dL RDW Std Deviation (36.4-46.3) fL RDW Coeff of Patrick (11.5-14.5) % Plt Count (130-400) K/uL MPV (7.4-10.4) fL Immature Gran % (Auto) % Neut % (Auto) % Lymph % (Auto) % [place] % (Auto) % Eos % (Auto) % Baso % (Auto) % Neut # (Auto) (1.4-6.5) K/uL Lymph # (Auto) (1.2-3.4) K/uL [place] # (Auto) (0.11-0.59) K/uL Eos # (Auto) (0-0.5) K/uL Baso # (Auto) (0-0.2) K/uL Immature Gran # (Auto) (0.00-0.02) K/uL PT 18.5 H (9.0-12.0) Seconds INR 1.8 H (0.9-1.1) APTT 32.5 H (21.0-31.0) Seconds PTT Ratio 1.2 Sodium (136-145) mmol/L Potassium (3.5-5.1) mmol/L Chloride (98-107) mmol/L Carbon Dioxide (21-32) mmol/L Anion Gap (3-11) BUN (7-18) mg/dl Creatinine (0.6-1.2) mg/dl Est Cr Clr Drug Dosing ml/min Est GFR ( Amer) Est GFR (Non-Af Amer) BUN/Creatinine Ratio (10-20) Glucose (70-99) mg/dl POC Glucose (70-99) mg/dl Calcium (8.5-10.1) mg/dl Phosphorus (2.5-4.9) mg/dl Magnesium (1.8-2.4) mg/dl Troponin I < 0.015 (0-0.045) ng/ml Triglycerides (0-150) mg/dl Cholesterol (0-200) mg/dl LDL Cholesterol, Calc mg/dl VLDL Cholesterol, Calc mg/dl HDL Cholesterol mg/dl Cholesterol/HDL Ratio Urine Color Urine Appearance (Clear) Urine pH (4.5-7.5) Ur Specific [place] (1.000-1.030) Urine Protein (Negative) Urine Glucose (UA) (Negative) Urine Ketones (Negative) Urine Blood (Negative) Urine Nitrite (Negative) Urine Bilirubin (Negative) Urine Urobilinogen (Negative) Ur Leukocyte Esterase (Negative) Urine WBC (Auto) (0-5) /hpf Urine RBC (Auto) (0-4) /hpf U Hyaline Cast (Auto) (0-5) /lpf U Epithel Cells (Auto) (0-5) /lpf Urine Bacteria (Auto) (Negative) Urine Yeast (None Prsent) 08/12/20 08/12/20 08/12/20 Range/Units 20:14 16:40 11:31 WBC (4.8-10.8) K/uL RBC (4.2-5.4) M/uL Hgb (12.0-16.0) g/dL Hct (37-47) % MCV (80-100) fL MCH (25-34) pg MCHC (32-36) g/dL RDW Std Deviation (36.4-46.3) fL RDW Coeff of Patrick (11.5-14.5) % Plt Count (130-400) K/uL MPV (7.4-10.4) fL Immature Gran % (Auto) % Neut % (Auto) % Lymph % (Auto) % [place] % (Auto) % Eos % (Auto) % Baso % (Auto) % Neut # (Auto) (1.4-6.5) K/uL Lymph # (Auto) (1.2-3.4) K/uL [place] # (Auto) (0.11-0.59) K/uL Eos # (Auto) (0-0.5) K/uL Baso # (Auto) (0-0.2) K/uL Immature Gran # (Auto) (0.00-0.02) K/uL PT (9.0-12.0) Seconds INR (0.9-1.1) APTT (21.0-31.0) Seconds PTT Ratio Sodium (136-145) mmol/L Potassium (3.5-5.1) mmol/L Chloride (98-107) mmol/L Carbon Dioxide (21-32) mmol/L Anion Gap (3-11) BUN (7-18) mg/dl Creatinine (0.6-1.2) mg/dl Est Cr Clr Drug Dosing ml/min Est GFR ( Amer) Est GFR (Non-Af Amer) BUN/Creatinine Ratio (10-20) Glucose (70-99) mg/dl POC Glucose 158 H 136 H 212 H (70-99) mg/dl Calcium (8.5-10.1) mg/dl Phosphorus (2.5-4.9) mg/dl Magnesium (1.8-2.4) mg/dl Troponin I (0-0.045) ng/ml Triglycerides (0-150) mg/dl Cholesterol (0-200) mg/dl LDL Cholesterol, Calc mg/dl VLDL Cholesterol, Calc mg/dl HDL Cholesterol mg/dl Cholesterol/HDL Ratio Urine Color Urine Appearance (Clear) Urine pH (4.5-7.5) Ur Specific [place] (1.000-1.030) Urine Protein (Negative) Urine Glucose (UA) (Negative) Urine Ketones (Negative) Urine Blood (Negative) Urine Nitrite (Negative) Urine Bilirubin (Negative) Urine Urobilinogen (Negative) Ur Leukocyte Esterase (Negative) Urine WBC (Auto) (0-5) /hpf Urine RBC (Auto) (0-4) /hpf U Hyaline Cast (Auto) (0-5) /lpf U Epithel Cells (Auto) (0-5) /lpf Urine Bacteria (Auto) (Negative) Urine Yeast (None Prsent) 08/12/20 08/12/20 08/12/20 Range/Units 11:00 08:14 07:33 WBC (4.8-10.8) K/uL RBC (4.2-5.4) M/uL Hgb (12.0-16.0) g/dL Hct (37-47) % MCV (80-100) fL MCH (25-34) pg MCHC (32-36) g/dL RDW Std Deviation (36.4-46.3) fL RDW Coeff of Patrick (11.5-14.5) % Plt Count (130-400) K/uL MPV (7.4-10.4) fL Immature Gran % (Auto) % Neut % (Auto) % Lymph % (Auto) % [place] % (Auto) % Eos % (Auto) % Baso % (Auto) % Neut # (Auto) (1.4-6.5) K/uL Lymph # (Auto) (1.2-3.4) K/uL [place] # (Auto) (0.11-0.59) K/uL Eos # (Auto) (0-0.5) K/uL Baso # (Auto) (0-0.2) K/uL Immature Gran # (Auto) (0.00-0.02) K/uL PT (9.0-12.0) Seconds INR (0.9-1.1) APTT (21.0-31.0) Seconds PTT Ratio Sodium 143 (136-145) mmol/L Potassium 3.7 (3.5-5.1) mmol/L Chloride 105 (98-107) mmol/L Carbon Dioxide 31 (21-32) mmol/L Anion Gap 7.0 (3-11) BUN 35 H (7-18) mg/dl Creatinine 1.18 (0.6-1.2) mg/dl Est Cr Clr Drug Dosing 48.5 ml/min Est GFR ( Amer) 54.1 Est GFR (Non-Af Amer) 46.7 BUN/Creatinine Ratio 29.4 H (10-20) Glucose 140 H (70-99) mg/dl POC Glucose 145 H (70-99) mg/dl Calcium 9.4 (8.5-10.1) mg/dl Phosphorus 3.2 (2.5-4.9) mg/dl Magnesium 2.1 (1.8-2.4) mg/dl Troponin I (0-0.045) ng/ml Triglycerides (0-150) mg/dl Cholesterol (0-200) mg/dl LDL Cholesterol, Calc mg/dl VLDL Cholesterol, Calc mg/dl HDL Cholesterol mg/dl Cholesterol/HDL Ratio Urine Color Yellow Urine Appearance Cloudy A (Clear) Urine pH 6.5 (4.5-7.5) Ur Specific [place] 1.010 (1.000-1.030) Urine Protein Negative (Negative) Urine Glucose (UA) Negative (Negative) Urine Ketones Negative (Negative) Urine Blood Negative (Negative) Urine Nitrite Negative (Negative) Urine Bilirubin Negative (Negative) Urine Urobilinogen Negative (Negative) Ur Leukocyte Esterase Trace H (Negative) Urine WBC (Auto) 10-30 H (0-5) /hpf Urine RBC (Auto) 0-4 (0-4) /hpf U Hyaline Cast (Auto) 5-10 H (0-5) /lpf U Epithel Cells (Auto) >30 H (0-5) /lpf Urine Bacteria (Auto) Negative (Negative) Urine Yeast Present A (None Prsent) Medications Administered Current Inpatient Medications Acetaminophen (Acetaminophen 325 Mg Tab) 650 mg PO Q4H PRN PRN Reason: Pain or Fever Stop: 09/10/20 19:44 Albuterol (Albuterol 0.083% Nebu Soln 3 Ml Vial) 2.5 mg INH BIDR PRN PRN Reason: Wheezing Stop: 09/10/20 20:16 Allopurinol (Allopurinol 100 Mg Tab) 200 mg PO [facility] Stop: 09/11/20 08:59 Last Admin: 08/12/20 07:44 Dose: 200 mg Documented by: Aspirin (Aspirin 81 Mg Ectab) [facility]: 09/12/20 08:59 Atorvastatin Calcium (Atorvastatin 40 Mg Tab) 80 mg PO [facility] Stop: 09/11/20 08:59 Last Admin: 08/12/20 07:42 Dose: 80 mg Documented by: Bisacodyl (Bisacodyl 10 Mg Supp) 10 mg OK DAILY PRN PRN Reason: Constipation Stop: 09/10/20 20:16 Citalopram Hydrobromide (Citalopram 20 Mg Tab) 10 mg PO [facility] Stop: 09/10/20 20:59 Last Admin: 08/12/20 20:06 Dose: 10 mg Documented by: Cyanocobalamin (Cyanocobalamin 500 Mcg Tablet (Vitamin B-12)) 1,000 mcg PO [facility] Stop: 09/11/20 08:59 Last Admin: 08/12/20 07:43 Dose: 1,000 mcg Documented by: Dextrose (Dextrose 50% 50 Ml Syringe) 25 - 50 ml IV UD PRN; Protocol PRN Reason: Hypoglycemia Protocol Stop: 09/10/20 20:17 Digoxin (Digoxin 0.125 Mg Tab) 0.125 mg PO MoWeFr@2100 [facility] Stop: 09/10/20 20:59 Last Admin: 08/11/20 21:02 Dose: 0.125 mg Documented by: Docusate Sodium (Docusate Sodium 100 Mg Cap) 100 mg PO BID PRN PRN Reason: Constipation Stop: 09/10/20 20:16 Fluticasone/Vilanterol (Fluticasone/Vilanterol 100/25mcg 14 Puffs/Inhaler) 1 puffs [facility]H [facility] Stop: 09/11/20 08:59 Last Admin: 08/12/20 08:42 Dose: 1 puffs Documented by: Gabapentin (Gabapentin 300 Mg Cap) 300 mg PO [facility] Stop: 09/10/20 20:59 Last Admin: 08/12/20 20:07 Dose: 300 mg Documented by: Gabapentin (Gabapentin 100 Mg Cap) 200 mg PO DAILY [facility] Stop: 09/11/20 08:59 Last Admin: 08/12/20 07:43 Dose: 200 mg Documented by: Glucagon (Glucagon For Inj 1 Mg Vial) 1 mg SQ UD PRN; Protocol PRN Reason: Hypoglycemia Protocol Stop: 09/10/20 20:17 Glucose (Glucose 10 Tabs/Tube) 4 - 8 tabs PO UD PRN; Protocol PRN Reason: Hypoglycemia Protocol Stop: 09/10/20 20:17 Glucose (Glucose 40% Gel 15 Gm Tube) 15 - 30 gm PO UD PRN; Protocol PRN Reason: Hypoglycemia Protocol Stop: 09/10/20 20:17 Furosemide 60 mg/ Syringe 6 mls @ 4 mls/min IV [id number] [facility] Stop: 09/12/20 08:59 Heparin Sodium/Dextrose (Heparin Sodium/Dextrose) 25,000 units in 500 mls @ 25 mls/hr IV .Q20H [facility]; Protocol Stop: 09/11/20 22:29 Last Titration: 08/13/20 07:04 Dose: 1,250 units/hr, 25 mls/hr Documented by: Insulin Aspart (Insulin Aspart 100 Units/Ml 3 Ml Pen) 0 units SC ACHS [facility] Stop: 09/10/20 20:59 Last Admin: 08/12/20 20:43 Dose: 2 units Documented by: Insulin Glargine (Insulin Glargine Solostar 100 Units/Ml 3 Ml Pen) 0 - 27 units SC BID [facility]; Protocol Stop: 09/10/20 20:59 Last Admin: 08/12/20 20:45 Dose: 20 units Documented by: Metoprolol Succinate (Metoprolol Succ 50mg Ext Rel Tab) 150 mg PO DAILY [facility] Stop: 09/11/20 08:59 Last Admin: 08/12/20 07:44 Dose: 150 mg Documented by: Miconazole Nitrate (Miconazole Nitrate Powder 43 Gm) 1 appln EXT PRN PRN PRN Reason: Affected Skin Folds Stop: 09/11/20 22:13 Miconazole Nitrate (Miconazole Nitrate Powder 43 Gm) 1 appln EXT BID [facility] Stop: 09/11/20 22:29 Last Admin: 08/12/20 23:13 Dose: 1 appln Documented by: Miscellaneous (Vitron- C Order Awaiting Action) 1 ea N/A QS [facility] Stop: 09/11/20 00:00 Last Admin: 08/13/20 00:18 Dose: Not Given Documented by: Miscellaneous (Carbohydrates For Hypoglycemia ) 15 - 30 gm PO UD PRN PRN Reason: Hypoglycemia Protocol Stop: 09/10/20 20:17 Nitroglycerin (Nitroglycerin Sl 0.4 Mg/Tab Tab) 0.4 mg SL UD PRN PRN Reason: Chest Pain Stop: 09/10/20 20:16 Last Admin: 08/12/20 21:13 Dose: 0.4 mg Documented by: Ondansetron HCl (Ondansetron Inj 2 Mg/Ml 2 Ml Vial) 4 mg IV Q6H PRN PRN Reason: Nausea Stop: 09/10/20 19:44 Polyethylene Glycol (Polyethylene (Miralax) 17 Gm Pack) 17 gm PO DAILY PRN PRN Reason: Constipation Stop: 09/10/20 19:44 Potassium Chloride (Potassium Chloride 10 Meq Tabcr) 10 meq PO HS [facility] Stop: 09/10/20 20:59 Last Admin: 08/12/20 20:06 Dose: 10 meq Documented by: Potassium Chloride (Potassium Chloride 20 Meq Tabcr) 20 meq PO DAILY [facility] Stop: 09/11/20 08:59 Last Admin: 08/12/20 07:43 Dose: 20 meq Documented by: Vitamin D (Cholecalciferol 1,000 Units 25 Mcg Tab) 2,000 units PO QAM [facility] Stop: 09/11/20 08:59 Last Admin: 08/12/20 07:42 Dose: 2,000 units Documented by: Warfarin Sodium (Warfarin Sod 1 Mg Tab) 1 mg PO SUTU@1600 [facility] Stop: 09/11/20 15:59 Last Admin: 08/12/20 16:06 Dose: 1 mg Documented by: Warfarin Sodium (Warfarin Sod 0.5 Mg Tab) 0.5 mg PO SUTU@1600 [facility] Stop: 09/11/20 15:59 Last Admin: 08/12/20 16:06 Dose: 0.5 mg Documented by: (1) Acute exacerbation of congestive heart failure Heart failure type: unspecified Qualified Code(s): I50.9 - Heart failure, unspecified (2) Diabetes mellitus, type II Diabetes mellitus complication detail: with chronic kidney disease Diabetes mellitus complication status: with kidney complications Diabetes mellitus penitentiary insulin use: unspecified grant officer insulin use status (3) Chest pain Chest pain type: precordial pain Qualified Code(s): R07.2 - Precordial pain (4) HTN (hypertension) Hypertension type: unspecified Qualified Code(s): I10 - Essential (primary) hypertension
[2020-08-13] MEDS: CHOLECALCIFEROL 1,000 UNITS 25 MCG TAB PO SCH (07:28)
[2020-08-13] MEDS: ATORVASTATIN 40 MG TAB PO SCH (07:29)
[2020-08-13] MEDS: METOPROLOL SUCC 50MG EXT REL TAB PO SCH (07:29)
[2020-08-13] MEDS: allopurinoL 100 MG TAB PO SCH (07:29)
[2020-08-13] MEDS: POTASSIUM CHLORIDE 20 MEQ TABCR PO SCH (07:29)
[2020-08-13] MEDS: GABAPENTIN 100 MG CAP PO SCH (07:30)
[2020-08-13] MEDS: FUROSEMIDE 60 MG in SYRINGE 0 ML IV SCH ×2 (07:30→16:34)
[2020-08-13] MEDS: CYANOCOBALAMIN 500 MCG TABLET (VITAMIN B-12) PO SCH (07:30)
[2020-08-13] MEDS: FLUTICASONE/VILANTEROL 100/25MCG 14 PUFFS/INHALER INH SCH (07:35)
[2020-08-13] MEDS: ASPIRIN 81 MG ECTAB PO SCH (07:35)
[2020-08-13] MEDS: MICONAZOLE NITRATE POWDER 43 GM EXT SCH ×2 (07:36→20:11)
[2020-08-13] MEDS: INSULIN GLARGINE SOLOSTAR 100 UNITS/ML 3 ML PEN SC SCH ×2 (08:43→09:56)
[2020-08-13] MEDS: POTASSIUM CHLORIDE / WTR 10 MEQ/100 ML PLCT IV SCH ×2 (08:45→09:51)
[2020-08-13] MEDS: INSULIN ASPART 100 UNITS/ML 3 ML PEN SC SCH ×5 (08:46→20:25)
--- NOTE | 2020-08-13 09:56 | Cardiology Consultation ---
Date of Consultation August 13, 2020 Assessment & Plan (1) Chest pain: Patient with symptoms of chest pain atypical for angina reproducible with palpation possibly secondary to excoriation under left breast. Evaluations have included multiple EKGs with discomfort and serial troponins with negative injury or ischemic findings. Would continue anticoagulation with warfarin. Patient currently being treated for underlying decompensated right heart failure secondary to dietary indiscretion. Clinically improving on IV diuretics Plan: Continue IV furosemide through this evening then resume oral torsemide in a.m. We will restart spironolactone at 12.5 mg p.o. daily while discontinuing potassium initially Discussed CHF instructions as in past with patient fully aware Will reassess in a.m. Recommend treating underlying skin, chest wall discomfort (2) Acute exacerbation of congestive heart failure: (3) Right-sided heart failure: (4) Pickwickian syndrome: (5) Chronic atrial fibrillation: History of Present Illness Reason for Consultation: Chest pain, diastolic heart failure Requesting Physician: Dr. Newton Attending Physician: Burak Newton MD History of Present Illness Patient is a 69-year-old female with complex constellation of ongoing issues which include 1. Severe chronic obstructive lung disease/sleep apnea O2 dependent with associated cor pulmonale 2. Hypertensive heart disease and chronic diastolic dysfunction, mitral insufficiency 3. Morbid obesity 4. Severe pulmonary hypertension 5. Permanent atrial fibrillation 6. Type 2 diabetes mellitus with stage III chronic kidney disease 7. 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 Acute arterial embolism right axillary brachial status post embolectomy 12/26/2019 9. Patent foramen ovale 10. Polymyalgia rheumatica Patient presents this admission having noted dietary indiscretion for several days prior to presentation. Had made and eaten ham potpie for multiple meals with subsequent increase in weight and worsening lower extremity edema. Patient was seen by home health care with patient noting worsening shortness of breath as well as atypical chest discomfort tender to touch. Patient was referred and admitted to the hospital has responded to IV diuretics. Weight down 4 kg from admission No evidence of myocardial injury or ischemia by troponin and EKG patient has used sublingual nitroglycerin for discomfort with possible gradual easing of complaints over hours duration EKGs during discomfort without change Still with achy chest discomfort which remains tender to touch. Significant candidal eruption underneath left breast Currently patient asymptomatic. Respiratory status and lower extremity edema improved. No fevers chills. Has chronic cough. Wears oxygen faithfully at home 3 L nasal cannula 24 hours/day No observed bleeding issues melena medication dysuria hematuria with patient chronically anticoagulated. No headache or visual changes. Allergies Allergy/AdvReac Type Severity Reaction Status Date / Time Penicillins Allergy Mild Unknown Verified 08/11/20 18:25 rofecoxib Allergy Unknown Unknown Verified 08/11/20 18:25 sulindac Allergy Unknown Unknown Verified 08/11/20 18:25 Home Medications Home Medications Medication Instructions Recorded Confirmed Type Lantus Solostar U-100 Insulin 54 unit SUBCUT DAILY 08/11/18 08/11/20 History atorvastatin 80 mg PO QAM 08/11/18 08/11/20 History nitroglycerin [Nitrostat] 0.4 mg SUBLINGUAL DIRECTED PRN 08/11/18 08/11/20 History metolazone 2.5 mg PO DIRECTED PRN 06/17/19 08/11/20 History torsemide 60 mg PO BID 10/22/19 08/11/20 History potassium chloride 20 meq PO DAILY 12/21/19 08/11/20 History Breo Ellipta 1 inh INHALATION QAM 01/22/20 08/11/20 History Humulin R Regular U-100 Insuln 0 unit SUBCUT .SLIDINGSCALE 01/22/20 08/11/20 History allopurinol 200 mg PO QAM 01/22/20 08/11/20 History digoxin 125 mcg PO 3XWK 01/22/20 08/11/20 History gabapentin 200 mg PO DAILY 01/22/20 08/11/20 History albuterol sulfate 2.5 mg INHALATION BID PRN 04/04/20 08/11/20 History citalopram 10 mg PO HS 04/04/20 08/11/20 History metoprolol succinate [Toprol XL] 150 mg PO DAILY 04/04/20 08/11/20 History acetaminophen [Tylenol] 650 mg PO Q4 PRN MDD 10 TABS/24 05/06/20 08/11/20 Histo ry HOURS cholecalciferol (vitamin D3) 2,000 unit PO QAM 05/06/20 08/11/20 History [Vitamin D3] cyanocobalamin (vitamin B-12) 1,000 mcg PO QAM 05/06/20 08/11/20 History [Vitamin B-12] warfarin 1.5 mg PO SUTU@1600 05/06/20 08/11/20 History bisacodyl 10 mg GA DAILY PRN 08/11/20 08/11/20 History docusate sodium 100 mg PO BID PRN 08/11/20 08/11/20 History gabapentin 300 mg PO HS 08/11/20 08/11/20 History insulin aspart U-100 [Novolog See Rx Instructions .ROUTE .COMPLEX 08/11/20 08/11/20 History Flexpen U-100 Insulin] iron,carbonyl-vitamin C [Vitron-C] 1 tab PO QAM 08/11/20 08/11/20 History polyethylene glycol 3350 17 g PO DAILY PRN 08/11/20 08/11/20 History potassium chloride 10 meq PO HS 08/11/20 08/11/20 History warfarin 3 mg PO MOWETHFRSA@1600 08/11/20 08/11/20 History Patient History Medical History Anemia (11/27/13) Chronic atrial fibrillation Chronic respiratory failure with hypoxia CKD (chronic kidney disease) stage 3, GFR 30-59 ml/min Diabetes mellitus, type II Dyslipidemia HTN (hypertension) Lumbar radiculopathy NUVIA on CPAP Pickwickian syndrome Polymyalgia rheumatica Right-sided heart failure Tobacco use disorder Surgical History History of hysterectomy History of total knee replacement Family History Father Heart disease Stroke Mother Diabetes Social History Smoking Status: Former smoker Tobacco Type: Cigarettes Cigarettes Per Day: 10; Second Hand Exposure: No; Do You Dip or Chew Tobacco: No; Tobacco Cessation Education Requested by Patient: No Hx Alcohol Use: No Hx Substance Use: No Preferred Language: Cymraes Communication Ability: Effective Road Cutter Required: No Beliefs That Will Affect Care: None marital status: / Current Living Situation: Alone Feels Safe at Home: Yes Safety Concerns: Feels Safe At This Time Physical Exam Constitutional: + morbidly obese Eyes: PERRL, conjunctivae normal, anicteric sclerae ENMT: external ear and nose normal, oropharynx normal Neck: trachea midline, no thyromegaly Respiratory: Auscultation: + diminished lung sounds and + rhonchi (Left base clear partially with cough) Cardiovascular: Rate/Rhythm: + irregularly irregular Heart Sounds: normal S1 and normal S2; no cardiac rub Vessels: no JVD Extremities: + edema (1+) Chest (Breasts): Additional Comments: Marked irritation and excoriation below left breast with tenderness to palpation Gastrointestinal (Abdomen): normal bowel sounds, soft, nontender, no hepatosplenomegaly Musculoskeletal: no cyanosis or clubbing, extremities motor strength 5/5 Neurologic: PERRL, EOMI, accommodation nl, no face palsy, no dysarthria Psychiatric: A+Ox3, euthymic affect Results & Data ([facility]) Vital Signs (Past 12 Hours) Vital Signs Temp Pulse Pulse Resp BP Pulse Ox 08/13/20 07:39 36.9 C 75 18 140/87 92 08/13/20 03:17 54 L 20 132/77 97 08/13/20 03:10 96 H 19 97 08/13/20 00:00 73 08/12/20 23:11 71 25 H 99 08/12/20 22:31 36.8 C 58 L 20 124/63 92 Laboratory Results Laboratory Results - last 24 hr 08/12/20 08/12/20 08/12/20 11:00 11:31 16:40 WBC RBC Hgb Hct MCV MCH MCHC RDW Std Deviation RDW Coeff of Patrick Plt Count MPV Immature Gran % (Auto) Neut % (Auto) Lymph % (Auto) Mineral % (Auto) Eos % (Auto) Baso % (Auto) Neut # (Auto) Lymph # (Auto) Mineral # (Auto) Eos # (Auto) Baso # (Auto) Immature Gran # (Auto) PT INR APTT PTT Ratio Sodium Potassium Chloride Carbon Dioxide Anion Gap BUN Creatinine Est Cr Clr Drug Dosing Est GFR ( Amer) Est GFR (Non-Af Amer) BUN/Creatinine Ratio Glucose POC Glucose 212 H 136 H Calcium Magnesium Troponin I Triglycerides Cholesterol LDL Cholesterol, Calc VLDL Cholesterol, Calc HDL Cholesterol Cholesterol/HDL Ratio Urine Color Yellow Urine Appearance Cloudy A Urine pH 6.5 Ur Specific [place] 1.010 Urine Protein Negative Urine Glucose (UA) Negative Urine Ketones Negative Urine Blood Negative Urine Nitrite Negative Urine Bilirubin Negative Urine Urobilinogen Negative Ur Leukocyte Esterase Trace H Urine WBC (Auto) 10-30 H Urine RBC (Auto) 0-4 U Hyaline Cast (Auto) 5-10 H U Epithel Cells (Auto) >30 H Urine Bacteria (Auto) Negative Urine Yeast Present A 08/12/20 08/12/20 08/12/20 20:14 20:47 20:47 WBC RBC Hgb Hct MCV MCH MCHC RDW Std Deviation RDW Coeff of Patrick Plt Count MPV Immature Gran % (Auto) Neut % (Auto) Lymph % (Auto) Mineral % (Auto) Eos % (Auto) Baso % (Auto) Neut # (Auto) Lymph # (Auto) Mineral # (Auto) Eos # (Auto) Baso # (Auto) Immature Gran # (Auto) PT 18.5 H INR 1.8 H APTT PTT Ratio Sodium Potassium Chloride Carbon Dioxide Anion Gap BUN Creatinine Est Cr Clr Drug Dosing Est GFR ( Amer) Est GFR (Non-Af Amer) BUN/Creatinine Ratio Glucose POC Glucose 158 H Calcium Magnesium Troponin I < 0.015 Triglycerides Cholesterol LDL Cholesterol, Calc VLDL Cholesterol, Calc HDL Cholesterol Cholesterol/HDL Ratio Urine Color Urine Appearance Urine pH Ur Specific [place] Urine Protein Urine Glucose (UA) Urine Ketones Urine Blood Urine Nitrite Urine Bilirubin Urine Urobilinogen Ur Leukocyte Esterase Urine WBC (Auto) Urine RBC (Auto) U Hyaline Cast (Auto) U Epithel Cells (Auto) Urine Bacteria (Auto) Urine Yeast 08/12/20 08/13/20 08/13/20 22:33 05:52 05:52 WBC 7.71 RBC 3.73 L Hgb 11.1 L Hct 35.9 L MCV 96.2 MCH 29.8 MCHC 30.9 L RDW Std Deviation 55.8 H RDW Coeff of Patrick 16.2 H Plt Count 165 MPV 9.9 Immature Gran % (Auto) 0.4 Neut % (Auto) 70.1 Lymph % (Auto) 22.7 Mineral % (Auto) 4.8 Eos % (Auto) 1.7 Baso % (Auto) 0.3 Neut # (Auto) 5.41 Lymph # (Auto) 1.75 Mineral # (Auto) 0.37 Eos # (Auto) 0.13 Baso # (Auto) 0.02 Immature Gran # (Auto) 0.03 H PT INR APTT 32.5 H PTT Ratio 1.2 Sodium 144 Potassium 3.7 Chloride 108 H Carbon Dioxide 34 H Anion Gap 2.0 L BUN 41 H Creatinine 1.18 Est Cr Clr Drug Dosing 49.4 Est GFR ( Amer) 54.1 Est GFR (Non-Af Amer) 46.7 BUN/Creatinine Ratio 34.3 H Glucose 139 H POC Glucose Calcium 9.4 Magnesium 2.2 Troponin I < 0.015 Triglycerides 100 Cholesterol 70 LDL Cholesterol, Calc 26 VLDL Cholesterol, Calc 20 HDL Cholesterol 24 Cholesterol/HDL Ratio 3 Urine Color Urine Appearance Urine pH Ur Specific [place] Urine Protein Urine Glucose (UA) Urine Ketones Urine Blood Urine Nitrite Urine Bilirubin Urine Urobilinogen Ur Leukocyte Esterase Urine WBC (Auto) Urine RBC (Auto) U Hyaline Cast (Auto) U Epithel Cells (Auto) Urine Bacteria (Auto) Urine Yeast 08/13/20 08/13/20 05:52 07:29 WBC RBC Hgb Hct MCV MCH MCHC RDW Std Deviation RDW Coeff of Patrick Plt Count MPV Immature Gran % (Auto) Neut % (Auto) Lymph % (Auto) Mineral % (Auto) Eos % (Auto) Baso % (Auto) Neut # (Auto) Lymph # (Auto) Mineral # (Auto) Eos # (Auto) Baso # (Auto) Immature Gran # (Auto) PT 17.2 H INR 1.7 H APTT 48.3 H* PTT Ratio 1.7 Sodium Potassium Chloride Carbon Dioxide Anion Gap BUN Creatinine Est Cr Clr Drug Dosing Est GFR ( Amer) Est GFR (Non-Af Amer) BUN/Creatinine Ratio Glucose POC Glucose 142 H Calcium Magnesium Troponin I Triglycerides Cholesterol LDL Cholesterol, Calc VLDL Cholesterol, Calc HDL Cholesterol Cholesterol/HDL Ratio Urine Color Urine Appearance Urine pH Ur Specific [place] Urine Protein Urine Glucose (UA) Urine Ketones Urine Blood Urine Nitrite Urine Bilirubin Urine Urobilinogen Ur Leukocyte Esterase Urine WBC (Auto) Urine RBC (Auto) U Hyaline Cast (Auto) U Epithel Cells (Auto) Urine Bacteria (Auto) Urine Yeast (1) Acute exacerbation of congestive heart failure Heart failure type: unspecified Qualified Code(s): I50.9 - Heart failure, unspecified (2) Right-sided heart failure Heart failure chronicity: acute on chronic Qualified Code(s): I50.813 - Acute on chronic right heart failure (3) Chest pain Chest pain type: precordial pain Qualified Code(s): R07.2 - Precordial pain
[2020-08-13] MEDS: SPIRONOLACTONE 12.5 MG TAB PO SCH (11:08)
--- NOTE | 2020-08-13 13:14 | Electrocardiogram Report ---
Test Reason : Blood Pressure : / mmHG Vent. Rate : 080 BPM Atrial Rate : 357 BPM P-R Int : 000 ms QRS Dur : 088 ms QT Int : 398 ms P-R-T Axes : 000 026 083 degrees QTc Int : 459 ms Atrial fibrillation Abnormal ECG When compared with ECG of 12-AUG-2020 06:57, No significant change was found Confirmed by Santana Wynn ([id number]) on 08/13/2020 1:13:46 PM Referred By: REFERRED SELF Confirmed By:Santana Wynn
--- NOTE | 2020-08-13 13:25 | Electrocardiogram Report ---
Test Reason : Blood Pressure : / mmHG Vent. Rate : 074 BPM Atrial Rate : 000 BPM P-R Int : 000 ms QRS Dur : 084 ms QT Int : 404 ms P-R-T Axes : 000 060 254 degrees QTc Int : 448 ms Atrial fibrillation Low voltage QRS Abnormal ECG When compared with ECG of 12-AUG-2020 20:54, (unconfirmed) No significant change was found Confirmed by Santana Wynn ([id number]) on 08/13/2020 1:24:43 PM Referred By: REFERRED SELF Confirmed By:Santana Wynn
[2020-08-13] MEDS ORDERED: WARFARIN SOD 3 MG TAB PO SCH (16:00)
[2020-08-13] MEDS: GABAPENTIN 300 MG CAP PO SCH (20:09)
[2020-08-13] MEDS: DIGOXIN 0.125 MG TAB PO SCH (20:10)
[2020-08-13] MEDS: CITALOPRAM 20 MG TAB PO SCH (20:11)
[2020-08-13] MEDS: HEPARIN SODIUM/DEXTROSE 25,000 UNITS/500 ML BAG IV SCH (20:26)
[2020-08-14 06:06] LABS: INR 1.5 (0.9-1.1); Prothrombin Time 15.3 Seconds (9.0-12.0)
[2020-08-14 06:32] LABS: BUN Creatinine Ratio 31.5 (10-20); Calcium 9.4 mg/dl (8.5-10.1); Creatinine Clr Calc Pharmacy 45.9 ml/min; Est GFR (African American) 49.5; Est GFR (Non-African American) 42.7
[2020-08-14 07:46] LABS: Partial Thromboplastin Ratio 2.7
[2020-08-14 07:51] LABS: Partial Thromboplastin Time 76.5 Seconds (21.0-31.0)
[2020-08-14] MEDS: FLUTICASONE/VILANTEROL 100/25MCG 14 PUFFS/INHALER INH SCH (07:52)
[2020-08-14] MEDS: ASPIRIN 81 MG ECTAB PO SCH (08:43)
[2020-08-14] MEDS: CYANOCOBALAMIN 500 MCG TABLET (VITAMIN B-12) PO SCH (08:43)
[2020-08-14] MEDS: CHOLECALCIFEROL 1,000 UNITS 25 MCG TAB PO SCH (08:43)
[2020-08-14] MEDS: ATORVASTATIN 40 MG TAB PO SCH (08:44)
[2020-08-14] MEDS: GABAPENTIN 100 MG CAP PO SCH (08:44)
[2020-08-14] MEDS: MICONAZOLE NITRATE POWDER 43 GM EXT SCH (08:44)
[2020-08-14] MEDS: SPIRONOLACTONE 12.5 MG TAB PO SCH (08:44)
[2020-08-14] MEDS: allopurinoL 100 MG TAB PO SCH (08:44)
[2020-08-14] MEDS: INSULIN GLARGINE SOLOSTAR 100 UNITS/ML 3 ML PEN SC SCH (08:47)
[2020-08-14] MEDS: METOPROLOL SUCC 50MG EXT REL TAB PO SCH (10:03)
[2020-08-14] MEDS: INSULIN ASPART 100 UNITS/ML 3 ML PEN SC SCH ×2 (10:40→12:22)
--- NOTE | 2020-08-14 10:52 | Cardiology Progress Note ---
Date of Service August 14, 2020 Assessment & Plan (1) Chest pain: Patient with symptoms of chest pain atypical for angina reproducible with palpation possibly secondary to excoriation under left breast. Evaluations have included multiple EKGs with discomfort and serial troponins with negative injury or ischemic findings. Would continue anticoagulation with warfarin. Orders resumed Decompensated right heart failure secondary to dietary indiscretion. Now improved, would resume oral diuretics at torsemide 60 mg p.o. twice daily Spironolactone resumed at 12.5 mg/day (2) Acute exacerbation of congestive heart failure: (3) Right-sided heart failure: (4) Pickwickian syndrome: (5) Chronic atrial fibrillation: Admission and Anticipated Discharge Date Admission Date: August 11, 2020 Subjective Patient was seen and examined, chart, medications, telemetry reviewed. Feels well today edema has nearly resolved. No chest pains or shortness of breath. Back to baseline per her description. Physical Exam Constitutional: + morbidly obese Eyes: PERRL, conjunctivae normal, anicteric sclerae ENMT: external ear and nose normal, oropharynx normal Neck: trachea midline, no thyromegaly Respiratory: Auscultation: + diminished lung sounds and + rhonchi (Left base clear partially with cough) Cardiovascular: Rate/Rhythm: + irregularly irregular Heart Sounds: normal S1 and normal S2; no cardiac rub Vessels: no JVD Extremities: + edema (Trace) Chest (Breasts): Additional Comments: Chest wall/superficial skin less tender Gastrointestinal (Abdomen): normal bowel sounds, soft, nontender, no hepatosplenomegaly Musculoskeletal: no cyanosis or clubbing, extremities motor strength 5/5 Neurologic: PERRL, EOMI, accommodation nl, no face palsy, no dysarthria Psychiatric: A+Ox3, euthymic affect Results & Data ([facility]) Vital Signs (Past 12 Hours) Vital Signs Temp Pulse Pulse Resp BP Pulse Ox 08/14/20 07:22 36.8 C 79 18 150/84 H 91 08/14/20 03:22 36.1 C L 80 20 142/74 H 97 08/14/20 03:17 78 26 H 96 08/13/20 22:58 36.5 C 72 20 122/71 96 (1) Chest pain Chest pain type: precordial pain Qualified Code(s): R07.2 - Precordial pain (2) Acute exacerbation of congestive heart failure Heart failure type: unspecified Qualified Code(s): I50.9 - Heart failure, unspecified (3) Right-sided heart failure Heart failure chronicity: acute on chronic Qualified Code(s): I50.813 - Acute on chronic right heart failure
[2020-08-14] MEDS ORDERED: TORSEMIDE 10 MG TAB PO SCH (11:00)
--- NOTE | 2020-08-14 11:26 | Hospitalist Progress Note ---
Date of Service August 14, 2020 Assessment & Plan (1) Acute exacerbation of congestive heart failure: This is a 69yo F with a PMH of R sided heart failure, cor pulmonale, h/o brachial artery thrombus COPD, chronic respiratory failure on 3L NC O2, DM II, HTN, chronic A Fib on anticoagulation, PVD, NUVIA on CPAP, tobacco use who presents with dyspnea on exertion and chest discomfort x 2 days. Elevated BNP at 4300, mild central pulmonary vascular congestion on chest x-ray and symptoms of exertional shortness of breath Received intravenous Lasix in the emergency room and there was continued while in the hospital Appreciate cardiology input and recommendation Echocardiogram obtained - Shows flattened septum consistent with RV pressure overload. EF 55 to 60%, moderate concentric LVH, RV moderately dilated, RV systolic function moderately reduced, right RV systolic pressure elevated at over 60 mmHg. Severe pulmonary hypertension. Advised to have torsemide 60 mg twice daily and his prolactin 12.5 mg daily on discharge (2) Acute on chronic respiratory failure: History of pickwickian syndrome and pulmonary hypertension Presented with acute on chronic respiratory failure Clinically much improved, currently denies any chest pain, and breathing improve Currently saturating at 95% on 3L (baseline) (3) Chest pain: Presents with atypical chest pain occurring at rest, reproducible with palpation -Troponin x3 negative. EKG with rate controlled atrial fibrillation, ntg PRN -next day patient denied any chest pain/ resolved, however CP re-occurred overnight, resolved w/ nitro - cardiology consulted-appreciate input and recommendation -No evidence of ACS, serial cardiac enzymes and EKG remained unremarkable (4) Chronic atrial fibrillation: EKG with atrial fibrillation at 97 bpm on admission -Continued Toprol twice daily -INR therapeutic at 2.3 -Continued Coumadin for anticoagulation on admission but switched overnight to IV heparin d/t report of chest pain -Discontinue heparin and restart Coumadin -Outpatient Coumadin clinic follow-up (5) Diabetes mellitus, type II: Insulin per protocol while in-patient -BSG AC HS (6) HTN (hypertension): Continue Toprol (7) Dyslipidemia: Continue statin (8) NUVIA on CPAP: CPAP HS DVT Ppx: coumadin Code status: FULL PCP: Dr. Mathis Dispo: Admitted to [facility] Admission and Anticipated Discharge Date Admission Date: August 11, 2020 Anticipated date of discharge: 08/14/20 Subjective 08/14/2020 The patient was seen and examined in medical telemetry unit She has been feeling a lot better this morning and denies any cardiac and or other symptoms She has been ambulating in the room without any difficulty and wants to go home She was evaluated by senior qc technician this morning and mentioned that no further cardiac tests are needed for now Review of Systems Review of Systems: All systems reviewed and are unremarkable except as noted below Cardiovascular: + edema (Chronic edema in both legs about 1+); no chest pain and no palpitations Physical Exam Physical Exam: Sitting on a chair without any acute distress Constitutional: well developed, well nourished and + obese; no acute distress and not ill appearing Eyes: PERRL, conjunctivae normal, anicteric sclerae ENMT: external ear and nose normal, oropharynx normal Neck: trachea midline, no thyromegaly Respiratory: normal respiratory effort; no respiratory distress Auscultation: lungs clear to auscultation bilaterally Cardiovascular: Rate/Rhythm: + irregularly irregular Heart Sounds: no murmur Gastrointestinal (Abdomen): Inspection/Auscultation: abdomen normal to inspection, + abdomen distended and normal bowel sounds Percussion/Palpation: abdomen soft; abdomen nontender Musculoskeletal: No acute arthritis involving any joints Neurologic: moves all extremities; no focal motor deficits Alert, awake and oriented x3 Results & Data Results & Data ([facility]) Vital Signs (Past 12 Hours) Vital Signs Temp Pulse Pulse Resp BP Pulse Ox 08/14/20 07:22 36.8 C 79 18 150/84 H 91 08/14/20 03:22 36.1 C L 80 20 142/74 H 97 08/14/20 03:17 78 26 H 96 Laboratory Results [facility] 08/14/20 05:25 Sodium 142 Potassium 4.0 Chloride 106 Carbon Dioxide 34 H BUN 40 H Creatinine 1.27 H Glucose 149 H Calcium 9.4 Medications Administered Current Inpatient Medications Acetaminophen (Acetaminophen 325 Mg Tab) 650 mg PO Q4H PRN PRN Reason: Pain or Fever Stop: 09/10/20 19:44 Last Admin: 08/14/20 08:43 Dose: 650 mg Documented by: Albuterol (Albuterol 0.083% Nebu Soln 3 Ml Vial) 2.5 mg INH BIDR PRN PRN Reason: Wheezing Stop: 09/10/20 20:16 Allopurinol (Allopurinol 100 Mg Tab) 200 mg PO [facility] Stop: 09/11/20 08:59 Last Admin: 08/14/20 08:44 Dose: 200 mg Documented by: Aspirin (Aspirin 81 Mg Ectab) 81 mg PO QAM [facility] Stop: 09/12/20 08:59 Last Admin: 08/14/20 08:43 Dose: 81 mg Documented by: Atorvastatin Calcium (Atorvastatin 40 Mg Tab) 80 mg PO QAM [facility] Stop: 09/11/20 08:59 Last Admin: 08/14/20 08:44 Dose: 80 mg Documented by: Bisacodyl (Bisacodyl 10 Mg Supp) 10 mg AR DAILY PRN PRN Reason: Constipation Stop: 09/10/20 20:16 Citalopram Hydrobromide (Citalopram 20 Mg Tab) 10 mg PO [facility] Stop: 09/10/20 20:59 Last Admin: 08/13/20 20:11 Dose: 10 mg Documented by: Cyanocobalamin (Cyanocobalamin 500 Mcg Tablet (Vitamin B-12)) 1,000 mcg [facility] Stop: 09/11/20 08:59 Last Admin: 08/14/20 08:43 Dose: 1,000 mcg Documented by: Dextrose (Dextrose 50% 50 Ml Syringe) 25 - 50 ml IV UD PRN; Protocol PRN Reason: Hypoglycemia Protocol Stop: 09/10/20 20:17 Digoxin (Digoxin 0.125 Mg Tab) 0.125 mg PO MoWeFr@2100 [facility] Stop: 09/10/20 20:59 Last Admin: 08/13/20 20:10 Dose: 0.125 mg Documented by: Docusate Sodium (Docusate Sodium 100 Mg Cap) 100 mg PO BID PRN PRN Reason: Constipation Stop: 09/10/20 20:16 Fluticasone/Vilanterol (Fluticasone/Vilanterol 100/25mcg 14 Puffs/Inhaler) 1 puffs [facility] Stop: 09/11/20 08:59 Last Admin: 08/14/20 07:52 Dose: 1 puffs Documented by: Gabapentin (Gabapentin 300 Mg Cap) 300 mg PO [facility] Stop: 09/10/20 20:59 Last Admin: 08/13/20 20:09 Dose: 300 mg Documented by: Gabapentin (Gabapentin 100 Mg Cap) 200 mg PO DAILY [facility] Stop: 09/11/20 08:59 Last Admin: 08/14/20 08:44 Dose: 200 mg Documented by: Glucagon (Glucagon For Inj 1 Mg Vial) 1 mg SQ UD PRN; Protocol PRN Reason: Hypoglycemia Protocol Stop: 09/10/20 20:17 Glucose (Glucose 10 Tabs/Tube) 4 - 8 tabs PO UD PRN; Protocol PRN Reason: Hypoglycemia Protocol Stop: 09/10/20 20:17 Glucose (Glucose 40% Gel 15 Gm Tube) 15 - 30 gm PO UD PRN; Protocol PRN Reason: Hypoglycemia Protocol Stop: 09/10/20 20:17 Furosemide 60 mg/ Syringe 6 mls @ 4 mls/min IV BID17 [facility] Stop: 09/12/20 08:59 Last Admin: 08/13/20 16:34 Dose: 4 mls/min Documented by: Heparin Sodium/Dextrose (Heparin Sodium/Dextrose) 25,000 units in 500 mls @ 22 mls/hr IV .[id number] [facility]; Protocol Stop: 09/11/20 22:29 Last Titration: 08/14/20 08:01 Dose: 1,100 units/hr, 22 mls/hr Documented by: Insulin Aspart (Insulin Aspart 100 Units/Ml 3 Ml Pen) 0 units SC ACHS [facility] Stop: 09/10/20 20:59 Last Admin: 08/14/20 10:40 Dose: 7 units Documented by: Insulin Glargine (Insulin Glargine Solostar 100 Units/Ml 3 Ml Pen) 0 - 27 units SC BID [facility]; Protocol Stop: 09/10/20 20:59 Last Admin: 08/14/20 08:47 Dose: 20 units Documented by: Metoprolol Succinate (Metoprolol Succ 50mg Ext Rel Tab) 150 mg PO DAILY [facility] Stop: 09/11/20 08:59 Last Admin: 08/14/20 10:03 Dose: 150 mg Documented by: Miconazole Nitrate (Miconazole Nitrate Powder 43 Gm) 1 appln EXT PRN PRN PRN Reason: Affected Skin Folds Stop: 09/11/20 22:13 Miconazole Nitrate (Miconazole Nitrate Powder 43 Gm) 1 appln EXT BID [facility] Stop: 09/11/20 22:29 Last Admin: 08/14/20 08:44 Dose: 1 appln Documented by: Miscellaneous (Vitron- C Order Awaiting Action) 1 ea N/A QS [facility] Stop: 09/11/20 00:00 Last Admin: 08/14/20 07:53 Dose: Not Given Documented by: Miscellaneous (Carbohydrates For Hypoglycemia ) 15 - 30 gm PO UD PRN PRN Reason: Hypoglycemia Protocol Stop: 09/10/20 20:17 Nitroglycerin (Nitroglycerin Sl 0.4 Mg/Tab Tab) 0.4 mg SL UD PRN PRN Reason: Chest Pain Stop: 09/10/20 20:16 Last Admin: 08/12/20 21:13 Dose: 0.4 mg Documented by: Ondansetron HCl (Ondansetron Inj 2 Mg/Ml 2 Ml Vial) 4 mg IV Q6H PRN PRN Reason: Nausea Stop: 09/10/20 19:44 Polyethylene Glycol (Polyethylene (Miralax) 17 Gm Pack) 17 gm PO DAILY PRN PRN Reason: Constipation Stop: 09/10/20 19:44 Potassium Chloride (Potassium Chloride 20 Meq Tabcr) 20 meq PO DAILY [facility] Stop: 09/11/20 08:59 Last Admin: 08/13/20 07:29 Dose: 20 meq Documented by: Spironolactone (Spironolactone 12.5 Mg Tab) 12.5 mg PO DAILY [facility] Stop: 09/12/20 10:29 Last Admin: 08/14/20 08:44 Dose: 12.5 mg Documented by: Torsemide (Torsemide 10 Mg Tab) 60 mg PO BID17 [facility] Stop: 09/13/20 10:59 Vitamin D (Cholecalciferol 1,000 Units 25 Mcg Tab) 2,000 units PO QAM [facility] Stop: 09/11/20 08:59 Last Admin: 08/14/20 08:43 Dose: 2,000 units Documented by: Warfarin Sodium (Warfarin Sod 1 Mg Tab) 1 mg PO SUTU@1600 [facility] Stop: 09/11/20 15:59 Last Admin: 08/12/20 16:06 Dose: 1 mg Documented by: Warfarin Sodium (Warfarin Sod 0.5 Mg Tab) 0.5 mg PO SUTU@1600 [facility] Stop: 09/11/20 15:59 Last Admin: 08/12/20 16:06 Dose: 0.5 mg Documented by: (1) Acute exacerbation of congestive heart failure Heart failure type: unspecified Qualified Code(s): I50.9 - Heart failure, unspecified (2) Chest pain Chest pain type: precordial pain Qualified Code(s): R07.2 - Precordial pain (3) Diabetes mellitus, type II 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
[2020-08-14 14:20] LABS: Partial Thromboplastin Ratio 1.5; Partial Thromboplastin Time 42.6 Seconds (21.0-31.0)
[2020-08-14] MEDS ORDERED: WARFARIN SOD 3 MG TAB PO SCH (16:00)
--- NOTE | 2020-08-15 07:51 | Discharge Summary ---
Date of Service August 15, 2020 Admission HPI Per Admitting Provider This is a 69yo F with a PMH of R sided heart failure, cor pulmonale, h/o brachial artery thrombus COPD, chronic respiratory failure on 3L NC O2, DM II, HTN, chronic A Fib on anticoagulation, PVD, NUVIA on CPAP, tobacco use and other medical problems listed below who presents with dyspnea on exertion and chest discomfort x 2 days. Had 3 servings of ham pot pie on Tuesday with increased fluid intake. Woke up on Tuesday with dyspnea on exertion and is requiring 4L NC O2, up from baseline of 2-3 L. Notes a 4 pound weight gain over the weekend and some increased swelling of her lower extremities. Also endorsing associated chest pain on left side that feels achy and sore to touch. Took SL ntg last evening which relieved pain. Denies fever, chills, visual changes, cough, palpitations, wheezing, nausea, vomiting, abdominal pain, dysuria, diarrhea or constipation. Admission Exam Per Admitting Provider Physical Exam: General Appearance: WD/WN, vitals as above, sitting in bedside chair, pleasant, conversationally dyspneic Head: normocephalic, atraumatic Eyes: normal inspection, PERRL, conjunctivae normal, anicteric sclerae ENT: external ear and nose normal, oropharynx normal Neck: normal visual inspection, trachea midline, no thyromegaly Respiratory: diminished lung sounds of bilateral bases, no wheeze, rales or rhonchi. No accessory muscle use Cardiovascular: regular rate, rhythm, no murmur appreciated, normal peripheral pulses, 2+ BLE edema. Vessels: + JVD Chest: normal inspection of chest. + TTP of chest wall Abdomen/GI: normal bowel sounds, soft, nontender, no hepatosplenomegaly Extremities/Musculoskeletal: venous stasis hyperpigmentation, no cyanosis or clubbing, extremities motor strength 5/5 Neurologic: PERRL, EOMI, accommodation nl, no face palsy, no dysarthria, CN's II-XI intact bilaterally and moves all extremities Psychiatric: A+Ox3, euthymic affect Skin: no rashes, normal color, warm/dry Principal Diagnosis Acute on chronic congestive heart failure, NUVIA on CPAP with oxygen, chest pain without any ACS, chronic atrial fibrillation on Coumadin, type 2 diabetes Discharge Exam Constitutional well developed, well nourished and + obese; no acute distress and not ill appearing Eyes PERRL, conjunctivae normal, anicteric sclerae ENMT external ear and nose normal, oropharynx normal Neck trachea midline, no thyromegaly Respiratory normal respiratory effort; no respiratory distress Auscultation: lungs clear to auscultation bilaterally Cardiovascular Rate/Rhythm: + irregularly irregular Heart Sounds: no murmur Gastrointestinal (Abdomen) Inspection/Auscultation: abdomen normal to inspection, + abdomen distended and normal bowel sounds Percussion/Palpation: abdomen soft; abdomen nontender Neurologic moves all extremities; no focal motor deficits Discharge Data Allergies Allergy/AdvReac Type Severity Reaction Status Date / Time Penicillins Allergy Mild Unknown Verified 08/11/20 18:25 rofecoxib Allergy Unknown Unknown Verified 08/11/20 18:25 sulindac Allergy Unknown Unknown Verified 08/11/20 18:25 Consultations 08/11/20 18:19 ED Decision to Admit Stat 08/12/20 22:19 Consult Cardiology Routine Hospital Course (1) Acute exacerbation of congestive heart failure: This is a 69yo F with a PMH of R sided heart failure, cor pulmonale, h/o brachial artery thrombus COPD, chronic respiratory failure on 3L NC O2, DM II, HTN, chronic A Fib on anticoagulation, PVD, NUVIA on CPAP, tobacco use who presents with dyspnea on exertion and chest discomfort x 2 days. Elevated BNP at 4300, mild central pulmonary vascular congestion on chest x-ray and symptoms of exertional shortness of breath Received intravenous Lasix in the emergency room and there was continued while in the hospital Appreciate cardiology input and recommendation Echocardiogram obtained - Shows flattened septum consistent with RV pressure overload. EF 55 to 60%, moderate concentric LVH, RV moderately dilated, RV systolic function moderately reduced, right RV systolic pressure elevated at over 60 mmHg. Severe pulmonary hypertension. Advised to have torsemide 60 mg twice daily and his prolactin 12.5 mg daily on discharge (2) Acute on chronic respiratory failure: History of pickwickian syndrome and pulmonary hypertension Presented with acute on chronic respiratory failure Clinically much improved, currently denies any chest pain, and breathing improve Currently saturating at 95% on 3L (baseline) (3) Chest pain: Presents with atypical chest pain occurring at rest, reproducible with palpation -Troponin x3 negative. EKG with rate controlled atrial fibrillation, ntg PRN -next day patient denied any chest pain/ resolved, however CP re-occurred overnight, resolved w/ nitro - cardiology consulted-appreciate input and recommendation -No evidence of ACS, serial cardiac enzymes and EKG remained unremarkable (4) Chronic atrial fibrillation: EKG with atrial fibrillation at 97 bpm on admission -Continued Toprol twice daily -INR therapeutic at 2.3 -Continued Coumadin for anticoagulation on admission but switched overnight to IV heparin d/t report of chest pain -Discontinue heparin and restart Coumadin -Outpatient Coumadin clinic follow-up (5) Diabetes mellitus, type II: Insulin per protocol while in-patient -BSG AC HS (6) HTN (hypertension): Continue Toprol (7) Dyslipidemia: Continue statin (8) NUVIA on CPAP: CPAP HS DVT Ppx: coumadin Code status: FULL PCP: Dr. Mathis Dispo: Admitted to [facility] Total Time Total Time Spent Total Time Spent (In Minutes): 35 minutes Total Time Includes: Examination of the Patient, Discharge Planning, Medication Reconciliation and Communication With Other Providers Discharge Plan Discharge Items Patient Disposition: Home - Self-Care Reason For Visit: ACUTE EXACERBATION CHF CP Discharge Diagnosis: Acute on chronic congestive heart failure, NUVIA on CPAP with oxygen, chest pain without any ACS, chronic atrial fibrillation on Coumadin, type 2 diabetes Condition on Discharge: Fair Activity: Resume your previous activity Non-emergency contact: Primary Care Provider Call non-emergency contact if: you have any medication questions and your symptoms worsen Follow-up/Referrals: Edison Mathis MD [Primary Care Provider] - 08/21/20 12:00 pm (Date & Time 08/21/2020 12:00 PM Provider Fady Romero MD [facility] ) Diet: Heart Healthy Fluids: 2000ml (8 cups) Addtl Attending Provider Instructions: Please take precautions to avoid fall Take your medications as advised and keep follow-up appointments with your healthcare providers Pending Studies at Discharge: No Stand-Alone Forms: [employer], Smoking Cessation Medications and DC Order Prescriptions: New aspirin 81 mg Tablet,Delayed Release (Dr/Ec) 81 mg PO QAM 30 Days Qty: 30 RF: 0 spironolactone 25 mg Tablet 12.5 mg PO DAILY 30 Days Qty: 15 RF: 0 Continued atorvastatin 40 mg Tablet 80 mg PO QAM RF: 0 nitroglycerin [Nitrostat] 0.4 mg Tablet, Sublingual 0.4 mg Sublingual DIRECTED PRN (Reason: Chest Pain) RF: 0 Lantus Solostar U-100 Insulin 100 unit/mL (3 mL) Insulin Pen 54 unit subcut DAILY RF: 0 metolazone 2.5 mg tablet 2.5 mg PO DIRECTED PRN (Reason: Weight Gain, SOB) RF: 0 torsemide 20 mg tablet 60 mg PO BID RF: 0 allopurinol 100 mg Tablet 200 mg PO QAM RF: 0 Humulin R Regular U-100 Insuln 100 unit/mL Solution 0 unit SUBCUT .SLIDINGSCALE RF: 0 digoxin 125 mcg (0.125 mg) Tablet 125 mcg PO 3XWK RF: 0 gabapentin 100 mg capsule 200 mg PO DAILY RF: 0 Breo Ellipta 100-25 mcg/dose Blister With Device 1 inh INHALATION QAM RF: 0 albuterol sulfate 2.5 mg /3 mL (0.083 %) solution for nebulization 2.5 mg inhalation BID PRN (Reason: Wheezing) RF: 0 citalopram 10 mg tablet 10 mg PO HS RF: 0 metoprolol succinate [Toprol XL] 100 mg tablet extended release 24 hr 150 mg PO DAILY RF: 0 acetaminophen [Tylenol] 325 mg Tablet 650 mg PO Q4 MDD 10 TABS/24 HOURS PRN (Reason: Pain) RF: 0 cyanocobalamin (vitamin B-12) [Vitamin B-12] 1,000 mcg Tablet 1,000 mcg PO QAM RF: 0 warfarin 3 mg Tablet 1.5 mg PO SUTU@1600 RF: 0 cholecalciferol (vitamin D3) [Vitamin D3] 50 mcg (2,000 unit) Capsule 2,000 unit PO QAM RF: 0 polyethylene glycol 3350 17 gram Powder In Packet 17 g PO DAILY PRN (Reason: Constipation) RF: 0 bisacodyl 10 mg Suppository 10 mg MO DAILY PRN (Reason: Constipation) RF: 0 docusate sodium 100 mg Capsule 100 mg PO BID PRN (Reason: Constipation) RF: 0 insulin aspart U-100 [Novolog Flexpen U-100 Insulin] 100 unit/mL (3 mL) insulin pen See Rx Instructions .ROUTE .COMPLEX RF: 0 Vitron-C 65 mg iron- 125 mg Tablet,Delayed Release (Dr/Ec) 1 tab PO QAM RF: 0 potassium chloride 10 mEq Tablet Extended Release 10 meq PO HS RF: 0 warfarin 3 mg Tablet 3 mg PO MOWETHFRSA@1600 RF: 0 gabapentin 300 mg Tablet 300 mg PO HS RF: 0 Discontinued potassium chloride 10 mEq tablet extended release 20 meq PO DAILY RF: 0 Discharge Orders: Discharge Order (Routine); Ordered 08/14/20 Ordered By: Mamadou Santo Admission Data Admit Date/Time: 08/11/20 18:35 Attending Provider: Mamadou Santo Admit Provider: Karoline Gonzales Primary Care Provider: Edison Mathis Other Providers: Karoline Gonzales ; Johnathon Jackson ; Uli Toney ; Hakeem Gray ; Erick Teran ; Liban Godwin ; Vinny Pierre ; Aurelia Hilario ; Monika Georges ; Bridger Menon ; Burak Newton Other Interventions: Discharge Summary Assessment (RN) Last Done: 08/14/20 14:21
--- NOTE | 2020-09-01 11:01 | Coding Query ---
CONGESTIVE HEART FAILURE To Promote full compliance with coding requirements relating to patient care, physician participation is requested in all cases of power plant electrician uncertainty. Please assist us with the following questions. A diagnosis of Congestive Heart Failure is documented in the patient's medical record. To accurately code this diagnosis and to compare patient severity, we ask that you specify the type of heart failure by placing an X within the parenthesis (x). SYSTOLIC HEART FAILURE ( + ) Acute ( ) Chronic ( ) Acute on Chronic ( ) Rheumatic ( ) Unknown Right sided heart failure. DIASTOLIC HEART FAILURE ( ) Acute ( ) Chronic ( ) Acute on Chronic ( ) Rheumatic ( ) Unknown COMBINED SYSTOLIC AND DIASTOLIC HEART FAILURE ( ) Acute ( ) Chronic ( ) Acute on Chronic ( ) Rheumatic ( ) Unknown Was the CHF Present On Admission? Please check the appropriate box: ( + ) Present on Admission ( ) Not Present On Admission ( ) Clinically undetermined All of these are documented in the chart. Thank you Jeanine ROSE
== END 2020-08-14 15:24 | disposition home or self-care (01) | DRG 291 ==
LOC: ED 17:02 → 2N 18:35 → SUATTDRO 18:35 → 2N 19:01

== ENCOUNTER 2020-09-10 20:29 | Observation (INO) ==
[2020-09-10 21:07] LABS: Basophils # (auto) 0.03 K/uL (0-0.2); Basophils % (auto) 0.3 %; Eosinophils # (auto) 0.15 K/uL (0-0.5); Eosinophils % (auto) 1.4 %; Hematocrit (blood only) 38.4 % (37-47); Hemoglobin 12.5 g/dL (12.0-16.0); Immature Granulocytes # (auto) 0.05 K/uL (0.00-0.02); Immature Granulocytes % (auto) 0.5 %; Lymphocytes # (auto) 1.93 K/uL (1.2-3.4); Lymphocytes % (auto) 17.5 %; Mean Corpuscular Hemoglobin 30.5 pg (25-34); Mean Corpuscular Hgb Conc 32.6 g/dL (32-36); Mean Corpuscular Volume 93.7 fL (80-100); Mean Platelet Volume 10.3 fL (7.4-10.4); Monocytes # (auto) 0.71 K/uL (0.11-0.59); Monocytes % (auto) 6.4 %; Neutrophils # (auto) 8.15 K/uL (1.4-6.5); Neutrophils % (auto) 73.9 %; Platelet Count 176 K/uL (130-400); RDW Coefficient of Variation 15.8 % (11.5-14.5); RDW Standard Deviation 54.1 fL (36.4-46.3); White Blood Count 11.02 K/uL (4.8-10.8)
--- NOTE | 2020-09-10 21:09 | XRay Report ---
XR chest 1V portable CLINICAL HISTORY: Atypical chest pain COMPARISON STUDY: 08/11/2020 FINDINGS: The heart is enlarged. There is radiographic evidence of mild congestive failure/fluid over load. There is no lobar consolidation. There are no pleural effusions.[ IMPRESSION: Cardiomegaly and continued radiographic evidence of mild congestive failure/fluid overloa d. ACT 112: Negative or not required by law. Electronically signed by: Christopher Delacruz M.D. 09/10/2020 9:08 PM
[2020-09-10 21:26] LABS: Partial Thromboplastin Ratio 1.6; Partial Thromboplastin Time 44.1 Seconds (21.0-31.0); Prothrombin Time 60.8 Seconds (9.0-12.0)
[2020-09-10 21:28] LABS: INR 6.4 (0.9-1.1)
--- NOTE | 2020-09-10 21:30 | Emergency Department Note ---
History of Present Illness General Chief complaint: Chest Pain Stated complaint: chest pressure Time Seen by Provider: 09/10/20 21:02 Source: patient Mode of arrival: EMS Limitations: no limitations History of Present Illness Provider complaint: Shortness of breath Onset (ago): day(s) 3 Location: chest Radiation: non-radiation Severity: mild Pain Consistency: + constant Quality: + dull and + constant Relieved By: + none Exacerbated By: + movement Associated symptoms: + diaphoresis, + malaise and + shortness of breath; no fever/chills, no headaches, no nausea/vomiting and no syncope This is a 6-year-old female who presents due to concern for increased shortness of breath. Patient states she first began noticing she was slightly short of breath 2 to 3 days ago. Patient denied any fevers or chills, cough or cold symptoms. Patient states she chronically has a small amount of shortness of breath due to her prior cardiac history and atrial fibrillation. Patient states she does take anticoagulation. Patient denies any known sick contacts or exposure to coronavirus. Patient states today then with the shortness of breath she began to feel a sense of chest heaviness. She states this was nonradiating. Patient states she also felt slightly sweaty. Patient denies accompanying dizziness or nausea. Patient denies any change in bowel or bladder function. Patient denies any increased lower extremity edema. Patient states she does take a diuretic daily and has not missed any doses. She denies any other changes to her medications. Patient states her umbrella repairer is Dr. Jackson since she had seen him 1 month ago and a routine visit. Patient was given aspirin and nitro by EMS and stated the nitro did help. Pt seen during a time of high acuity and national emergency pandemic while wearing PPE. Home Medications Home Medications Medication Instructions Recorded Confirmed Type Lantus Solostar U-100 Insulin 54 unit SUBCUT DAILY 08/11/18 09/10/20 History atorvastatin 80 mg PO QAM 08/11/18 09/10/20 History nitroglycerin [Nitrostat] 0.4 mg SUBLINGUAL DIRECTED PRN 08/11/18 09/10/20 History torsemide 60 mg PO BID 10/22/19 09/10/20 History Breo Ellipta 1 inh INHALATION QAM 01/22/20 09/10/20 History Humulin R Regular U-100 Insuln 0 unit SUBCUT .SLIDINGSCALE 01/22/20 09/10/20 History allopurinol 200 mg PO QAM 01/22/20 09/10/20 History digoxin 125 mcg PO 3XWK 01/22/20 09/10/20 History gabapentin 200 mg PO DAILY 01/22/20 09/10/20 History albuterol sulfate 2.5 mg INHALATION BID PRN 04/04/20 09/10/20 History citalopram 10 mg PO HS 04/04/20 09/10/20 History metoprolol succinate [Toprol XL] 150 mg PO DAILY 04/04/20 09/10/20 History acetaminophen [Tylenol] 325 - 650 mg PO Q4 PRN MDD 10 05/06/20 09/10/20 History TABS/24 HOURS cholecalciferol (vitamin D3) 2,000 unit PO QAM 05/06/20 09/10/20 History [Vitamin D3] cyanocobalamin (vitamin B-12) 1,000 mcg PO QAM 05/06/20 09/10/20 History [Vitamin B-12] warfarin 1.5 mg PO PERKINS 05/06/20 09/10/20 History Vitron-C 1 tab PO QAM 08/11/20 09/10/20 History bisacodyl 10 mg KS DAILY PRN 08/11/20 09/10/20 History docusate sodium 100 mg PO BID PRN 08/11/20 09/10/20 History insulin aspart U-100 [Novolog See Rx Instructions .ROUTE .COMPLEX 08/11/20 09/10/20 History Flexpen U-100 Insulin] polyethylene glycol 3350 17 g PO DAILY PRN 08/11/20 09/10/20 History potassium chloride 10 meq PO HS 08/11/20 09/10/20 History warfarin 3 mg PO MOTUWETHFRSA@1600 08/11/20 09/10/20 History aspirin 81 mg PO QAM 30 Days #30 tab 08/14/20 09/10/20 Rx spironolactone 12.5 mg PO DAILY 30 Days #15 tab 08/14/20 09/10/20 Rx gabapentin [Neurontin] 300 mg PO HS 09/10/20 09/10/20 History sennosides-docusate sodium 1 tab-cap PO DAILY PRN 09/10/20 09/10/20 History [Senna-S] sodium phosphates [Fleet Enema] 118 ml KS DAILY PRN 09/10/20 09/10/20 History Allergies Allergy/AdvReac Type Severity Reaction Status Date / Time Penicillins Allergy Mild Unknown Verified 08/11/20 18:25 rofecoxib Allergy Unknown Unknown Verified 08/11/20 18:25 sulindac Allergy Unknown Unknown Verified 08/11/20 18:25 Past Med/Surg History Medical History Anemia (11/27/13) Chronic atrial fibrillation Chronic respiratory failure with hypoxia CKD (chronic kidney disease) stage 3, GFR 30-59 ml/min Diabetes mellitus, type II Dyslipidemia Fluid overload HTN (hypertension) Lumbar radiculopathy NUVIA on CPAP Pickwickian syndrome Polymyalgia rheumatica Right-sided heart failure Tobacco use disorder Surgical History History of hysterectomy History of total knee replacement Family History Father Heart disease Stroke Mother Diabetes Social History Smoking Status: Former smoker Tobacco Type: Cigarettes Cigarettes Per Day: 10; Second Hand Exposure: No; Hx Alcohol Use: No Hx Substance Use: No Preferred Language: Moroccan Communication Ability: Effective 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 and A total of 10 systems reviewed and were otherwise negative Physical Exam Vital Signs Vital Signs - 24 hr 09/10/20 20:39 09/10/20 20:40 09/10/20 20:46 Temperature 36.7 C Temperature Source Oral Pulse Rate 74 73 Pulse Rate from SpO2 Sensor 76 Pulse Rhythm Irregular Respiratory Rate 19 22 Respiratory Effort / Characteristics Non-Labored Respiratory Depth Normal Respiratory Pattern Regular Blood Pressure 151/67 H 151/67 H Blood Pressure Mean 110 95 Blood Pressure Position Sitting Pulse Oximetry 97 97 Oxygen Delivery Method Nasal Cannula Nasal Cannula Oxygen Flow Rate 3 3 Sepsis Recent Fever Within 48 Hours No Sepsis New/Unexplained Change in Mental Status No Sepsis Action Taken by Nursing No Action Required Oxygen Flow Rate - Titration Pulse Oximetry Post Tiitration 09/10/20 20:51 09/10/20 21:00 09/10/20 21:30 Temperature Temperature Source Pulse Rate 83 75 Pulse Rate from SpO2 Sensor 84 72 Pulse Rhythm Respiratory Rate 21 17 Respiratory Effort / Characteristics SOB on Exertion Respiratory Depth Normal Respiratory Pattern Blood Pressure 158/81 H 141/86 H Blood Pressure Mean 112 128 Blood Pressure Position Pulse Oximetry 99 99 Oxygen Delivery Method Nasal Cannula Oxygen Flow Rate 3 Sepsis Recent Fever Within 48 Hours Sepsis New/Unexplained Change in Mental Status Sepsis Action Taken by Nursing Oxygen Flow Rate - Titration Pulse Oximetry Post Tiitration 09/10/20 22:00 09/10/20 22:30 09/10/20 23:01 Temperature Temperature Source Pulse Rate 66 69 72 Pulse Rate from SpO2 Sensor 67 71 69 Pulse Rhythm Respiratory Rate 18 16 20 Respiratory Effort / Characteristics Respiratory Depth Respiratory Pattern Blood Pressure 148/74 H 139/71 124/70 Blood Pressure Mean 118 81 76 Blood Pressure Position Pulse Oximetry 100 100 100 Oxygen Delivery Method Oxygen Flow Rate Sepsis Recent Fever Within 48 Hours Sepsis New/Unexplained Change in Mental Status Sepsis Action Taken by Nursing Oxygen Flow Rate - Titration Pulse Oximetry Post Tiitration 09/10/20 23:41 Temperature Temperature Source Pulse Rate Pulse Rate from SpO2 Sensor Pulse Rhythm Respiratory Rate Respiratory Effort / Characteristics Respiratory Depth Respiratory Pattern Blood Pressure Blood Pressure Mean Blood Pressure Position Pulse Oximetry 81 L Oxygen Delivery Method Room Air Oxygen Flow Rate Sepsis Recent Fever Within 48 Hours Sepsis New/Unexplained Change in Mental Status Sepsis Action Taken by Nursing Oxygen Flow Rate - Titration 3 Pulse Oximetry Post Tiitration 93 GENERAL: alert, well appearing, well nourished, no distress, non-toxic, obese, mildly diaphoretic EYE EXAM: normal conjunctiva, PERRL and EOM's grossly intact OROPHARYNX: no exudate, no erythema, lips, buccal mucosa, and tongue normal and mucous membranes are moist NECK: supple, no nuchal rigidity, no adenopathy, non-tender LUNGS: Clear to auscultation. Normal chest wall mechanics, no w/r/r HEART: no murmurs, S1 normal and S2 normal, irregular ABDOMEN: abdomen soft, non-tender, normo-active bowel sounds, no masses, no rebound or guarding. BACK: Back is symmetrical on inspection and there is no deformity, no midline tenderness, no CVA tenderness. SKIN: no rashes and no bruising UPPER EXTREMITIES: upper extremities are grossly normal. FROM, nml pulses b/l. LOWER EXTREMITIES: No pitting edema. FROM, nml pulses b/l. NEURO EXAM: Normal sensorium, cranial nerves II-XII grossly intact, normal speech, no gross weakness of arms, no gross weakness of legs. Gross sensation intact. Course Course 2322: Pt states feeling slightly improved. Ambulatory trial by nursing staff to the bathroom, oxygen dropped to 81%. 2350: Case discussed with Dr. Gracia for additional mgmt. Administered Medications Allopurinol (Allopurinol 100 Mg Tab) 200 mg PO [facility] Stop: 10/11/20 08:59 Last Admin: 09/11/20 08:14 Dose: 200 mg Documented by: [id number] Aspirin (Aspirin 81 Mg Ectab) 81 mg PO [facility] Stop: 10/11/20 08:59 Last Admin: 09/11/20 08:15 Dose: 81 mg Documented by: [id number] Atorvastatin Calcium (Atorvastatin 40 Mg Tab) 80 mg PO [facility] Stop: 10/11/20 08:59 Last Admin: 09/11/20 08:14 Dose: 80 mg Documented by: [id number] Citalopram Hydrobromide (Citalopram 20 Mg Tab) 10 mg PO [facility] Stop: 10/11/20 20:59 Last Admin: 09/11/20 20:20 Dose: 10 mg Documented by: [id number] Cyanocobalamin (Cyanocobalamin 500 Mcg Tablet (Vitamin B-12)) 1,000 mcg PO [facility] Stop: 10/11/20 08:59 Last Admin: 09/11/20 08:14 Dose: 1,000 mcg Documented by: [id number] Fluticasone/Vilanterol (Fluticasone/Vilanterol 100/25mcg 14 Puffs/Inhaler) 1 puffs INH [facility] Stop: 10/11/20 08:59 Last Admin: 09/11/20 08:13 Dose: 1 puffs Documented by: [id number] Gabapentin (Gabapentin 300 Mg Cap) 300 mg PO [facility] Stop: 10/11/20 20:59 Last Admin: 09/11/20 20:20 Dose: 300 mg Documented by: [id number] Gabapentin (Gabapentin 100 Mg Cap) 200 mg PO DAILY [facility] Stop: 10/11/20 08:59 Last Admin: 09/11/20 08:14 Dose: 200 mg Documented by: [id number] Furosemide 40 mg/ Syringe 4 mls @ 4 mls/min IV [id number] [facility] Stop: 10/11/20 08:59 Last Admin: 09/11/20 17:12 Dose: 4 mls/min Documented by: [id number] Admin: 09/11/20 08:15 Dose: 4 mls/min Documented by: [id number] Insulin Aspart (Insulin Aspart 100 Units/Ml 3 Ml Pen) 0 units SC ACHS [facility] Stop: 10/11/20 07:29 Last Admin: 09/11/20 19:53 Dose: 3 units Documented by: [id number] Cosigned by: [id number] Admin: 09/11/20 17:11 Dose: 7 units Documented by: [id number] Cosigned by: [id number] Admin: 09/11/20 12:20 Dose: 4 units Documented by: [id number] Cosigned by: [id number] Admin: 09/11/20 08:59 Dose: Not Given Documented by: [id number] Cosigned by: [id number] Insulin Glargine (Insulin Glargine Solostar 100 Units/Ml 3 Ml Pen) 27 units SC DAILY [facility] Stop: 10/11/20 08:59 Last Admin: 09/11/20 08:15 Dose: 27 units Documented by: [id number] Cosigned by: [id number] Metoprolol Succinate (Metoprolol Succ 50mg Ext Rel Tab) 150 mg PO DAILY [facility] Stop: 10/11/20 08:59 Last Admin: 09/11/20 08:14 Dose: 150 mg Documented by: [id number] Potassium Chloride (Potassium Chloride 10 Meq Tabcr) 10 meq PO HS [facility] Stop: 10/11/20 20:59 Last Admin: 09/11/20 20:20 Dose: 10 meq Documented by: [id number] Spironolactone (Spironolactone 12.5 Mg Tab) 12.5 mg PO DAILY [facility] Stop: 10/11/20 08:59 Last Admin: 09/11/20 08:14 Dose: 12.5 mg Documented by: [id number] Vitamin D (Cholecalciferol 1,000 Units 25 Mcg Tab) 2,000 units PO QAM [facility] Stop: 10/11/20 08:59 Last Admin: 10/15/20 08:14 Dose: 2,000 units Documented by: [id number] Discontinued Medications Furosemide (Furosemide 40 Mg/4 Ml Vial) 40 mg IV NOW STA Stop: 09/10/20 22:54 Last Admin: 09/10/20 22:59 Dose: 40 mg Documented by: [id number] Phytonadione 2.5 mg/ Sodium (Chloride) 50.25 mls @ 100.5 mls/hr IV ONE ONE Stop: 09/11/20 08:54 Last Infusion: 09/11/20 10:17 Dose: 0 mls/hr Documented by: [id number] Admin: 09/11/20 09:05 Dose: 100.5 mls/hr Documented by: [id number] Nitroglycerin (Nitroglycerin 2% Ointment 30gm Tube) 1 inch EXT NOW STA Stop: 09/10/20 22:54 Last Admin: 09/10/20 22:59 Dose: 1 inch Documented by: [id number] Medical Decision Making Differential Diagnosis Differential diagnoses includes but is not limited to acute coronary syndrome, myocardial infarction, pericarditis, pulmonary embolus, aortic dissection, pneumonia, pneumothorax, musculoskeletal, shingles, esophageal. Medical Records Attestation: I reviewed the patient's medical records. Home Medications Current Medication List: was personally reviewed by me Laboratory Data Attestation: I reviewed the patient's lab results. Result diagrams: 09/11/20 05:18 09/11/20 05:18 Lab Results 09/10/20 09/10/20 09/10/20 Range/Units 20:39 20:39 20:39 WBC 11.02 H (4.8-10.8) K/uL RBC 4.10 L (4.2-5.4) M/uL Hgb 12.5 (12.0-16.0) g/dL Hct 38.4 (37-47) % MCV 93.7 (80-100) fL MCH 30.5 (25-34) pg MCHC 32.6 (32-36) g/dL RDW Std Deviation 54.1 H (36.4-46.3) fL RDW Coeff of Patrick 15.8 H (11.5-14.5) % Plt Count 176 (130-400) K/uL MPV 10.3 (7.4-10.4) fL Immature Gran % (Auto) 0.5 % Neut % (Auto) 73.9 % Lymph % (Auto) 17.5 % [place] % (Auto) 6.4 % Eos % (Auto) 1.4 % Baso % (Auto) 0.3 % Neut # (Auto) 8.15 H (1.4-6.5) K/uL Lymph # (Auto) 1.93 (1.2-3.4) K/uL [place] # (Auto) 0.71 H (0.11-0.59) K/uL Eos # (Auto) 0.15 (0-0.5) K/uL Baso # (Auto) 0.03 (0-0.2) K/uL Immature Gran # (Auto) 0.05 H (0.00-0.02) K/uL PT 60.8 H (9.0-12.0) Seconds INR 6.4 H* (0.9-1.1) APTT 44.1 H (21.0-31.0) Seconds PTT Ratio 1.6 Sodium 140 (136-145) mmol/L Potassium 3.7 (3.5-5.1) mmol/L Chloride 103 (98-107) mmol/L Carbon Dioxide 30 (21-32) mmol/L Anion Gap 7.0 (3-11) BUN 45 H (7-18) mg/dl Creatinine 1.36 H (0.6-1.2) mg/dl Est Cr Clr Drug Dosing 42.8 ml/min Est GFR ( Amer) 45.6 Est GFR (Non-Af Amer) 39.3 BUN/Creatinine Ratio 32.7 H (10-20) Glucose 67 L (70-99) mg/dl Calcium 10.2 H (8.5-10.1) mg/dl Total Bilirubin 0.5 (0.2-1) mg/dl AST 14 L (15-37) U/L ALT 20 (12-78) U/L Alkaline Phosphatase 90 (45-117) U/L Troponin I 0.025 (0-0.045) ng/ml NT-Pro-B Natriuret Pep 4445 H (0-900) pg/ml Total Protein 7.0 (6.4-8.2) gm/dl Albumin 3.3 L (3.4-5.0) gm/dl Globulin 3.7 (2.5-4.0) gm/dl Albumin/Globulin Ratio 0.9 (0.9-2) Specimen Hemolysis Imaging Data Radiologist's Impression: XR chest 1V portable CLINICAL HISTORY: Atypical chest pain COMPARISON STUDY: 08/11/2020 FINDINGS: The heart is enlarged. There is radiographic evidence of mild congestive failure/fluid overload. There is no lobar consolidation. There are no pleural effusions.[ IMPRESSION: Cardiomegaly and continued radiographic evidence of mild congestive failure/fluid overload. ACT 112: Negative or not required by law. Electronically signed by: Christopher Delacruz M.D. 09/10/2020 9:08 PM ECG Data Attestation: I personally reviewed and interpreted this ECG as follows: Indication: + SOB/dyspnea Rate (beats per minute): 82 Rhythm: + atrial fibrillation ECG Intervals/blocks: + Normal QRS and + Normal QT ECG [place]: + Normal ECG ST segments: + Nonspecific ST abnormalities Blood Pressure Blood Pressure Findings: Elevated blood pressure Blood Pressure Disposition: further management by hospitalist MDM Narrative Pt here with worsening dyspnea and chest discomfort over the last 2-3 days, worse today. VS stable and EKG unchanged. Labs sent and cxr performed. These were reassuring. INR found to be elevated. Pt denied any black/bloody stools or bleeding from any other site. H/H stable compared to priors in EMR. Pt felt improved with nitro here. Discussed with hospitalist for additional evalation. BNp elevated but chronically elevated. Clinically not in acute failure although pt has hx of CHF. Pt with cardiac history and elevated heart score despite reassuring ekg and negative troponin here. An order was placed for continuous cardiac monitoring. The monitor shows a rate of _77_ with a.fib_ rhythm. Impression & Plan Atypical chest pain, Chronic atrial fibrillation, Acute dyspnea, Supratherapeutic INR Discharge Plan Visit Data Chief Complaint: Chest Pain Stated Complaint: chest pressure ED Provider: Hattie Day Discharge Problem: Atypical chest pain, Chronic atrial fibrillation, Acute dyspnea, Supratherapeutic INR Patient Disposition: Admitted As Inpatient Discharge Instructions Interventions: ED Discharge Assessment Last Done: 09/11/20 01:36
[2020-09-10 21:33] LABS: Albumin Globulin Ratio 0.9 (0.9-2); Albumin Level 3.3 gm/dl (3.4-5.0); BUN Creatinine Ratio 32.7 (10-20); Bilirubin,Total 0.5 mg/dl (0.2-1); Calcium 10.2 mg/dl (8.5-10.1); Creatinine Clr Calc Pharmacy 42.8 ml/min; Est GFR (African American) 45.6; Est GFR (Non-African American) 39.3; Globulin 3.7 gm/dl (2.5-4.0); Potassium 3.7 mmol/L (3.5-5.1); Troponin I 0.025 ng/ml (0-0.045)
[2020-09-10] MEDS ORDERED: FUROSEMIDE 40 MG/4 ML VIAL IV STA (22:53)
[2020-09-10] MEDS ORDERED: NITROGLYCERIN 2% OINTMENT 30GM TUBE EXT STA (22:53)
[2020-09-11] MEDS ORDERED: ONDANSETRON INJ 2 MG/ML 2 ML VIAL IV PRN (01:57)
[2020-09-11] MEDS ORDERED: SOD PHOSPHATE/SOD BIPHOSPHATE ENEMA 132 ML BTL PR PRN (01:57)
[2020-09-11] MEDS ORDERED: POLYETHYLENE (MIRALAX) 17 GM PACK PO PRN (01:57)
[2020-09-11] MEDS ORDERED: DOCUSATE SODIUM 100 MG CAP PO PRN (01:57)
[2020-09-11] MEDS ORDERED: ACETAMINOPHEN 325 MG TAB PO PRN (01:57)
[2020-09-11] MEDS ORDERED: bisacodyL 10 MG SUPP PR PRN (01:57)
[2020-09-11] MEDS ORDERED: ALBUTEROL 0.083% NEBU SOLN 3 ML VIAL INH PRN (01:57)
[2020-09-11] MEDS ORDERED: NITROGLYCERIN SL 0.4 MG/TAB TAB SL PRN (01:57)
[2020-09-11] MEDS ORDERED: DOCUSATE SODIUM/SENNA 50/8.6MG TAB PO PRN (01:57)
[2020-09-11] MEDS ORDERED: DEXTROSE 50% 50 ML SYRINGE IV PRN (02:30)
[2020-09-11] MEDS ORDERED: GLUCOSE 10 TABS/TUBE PO PRN (02:30)
[2020-09-11] MEDS ORDERED: GLUCOSE 40% GEL 15 GM TUBE PO PRN (02:30)
[2020-09-11] MEDS ORDERED: GLUCAGON FOR INJ 1 MG VIAL SQ PRN (02:30)
[2020-09-11] MEDS ORDERED: CARBOHYDRATES FOR HYPOGLYCEMIA PO PRN (02:30)
--- NOTE | 2020-09-11 02:46 | History and Physical Report ---
DATE OF ADMISSION: 09/11/2020 CHIEF COMPLAINT: Chest pain and shortness of breath. HISTORY OF PRESENT ILLNESS: A 69-year-old female with past medical history significant for COPD, obstructive sleep apnea, on CPAP, restrictive lung disease, chronic hypoxemia with respiratory failure, chronically on 3 liters oxygen at home,cor pulmonale, right-sided heart failure, pulmonary hypertension, chronic atrial fibrillation on Coumadin, history of ME, chronic kidney disease stage III, peripheral vascular disease,type 2 diabetes, hyperlipidemia, morbid obesity, vitamin B deficiency, gout arthropathy, tobacco use disorder, history of polymyalgia rheumatica. The patient presents with shortness of breath and chest pain starting yesterday afternoon around 1:00 p.m. She felt like someone was sitting on her chest and she called her niece around 7:00 p.m. and then was brought in here. In the ER, initially she was placed on nitro paste and that relieved her chest pain and chest x-ray showed some pulmonary congestion. When the patient went to the bathroom and came back, she was short of breath and she desaturated to 81%. Currently resting comfortably and hemodynamically stable. Her chest pain is improved. Denies any other complaints. She ambulates with a walker. Denies any headache, no dizziness, no blurred vision, no earache, no runny nose, no sore throat, no cough, no nausea, no vomiting, no abdominal pain. Normal bowel and bladder movements. Has chronic swelling in the lower extremity, which is same. The patient is feeling hungry and wants to eat. ALLERGIES: PENICILLINS, ROFECOXIB, SULINDAC. PAST MEDICAL HISTORY: As mentioned above. PAST SURGICAL HISTORY: Right thrombectomy of axillary artery, colonoscopy, left knee arthroscopy, left knee replacement, tonsillectomy, total abdominal hysterectomy with removal of tubes. MEDICATIONS: The patient is on Tylenol 325 to 650 mg p.o. q. 4 hours p.r.n., albuterol 2.5 mg inhalation b.i.d. p.r.n., allopurinol 200 mg p.o. a.m., aspirin 81 mg p.o. daily, atorvastatin 80 mg p.o. a.m., bisacodyl 10 mg daily p.r.n., Breo Ellipta 1 inhalation daily, vitamin D 2000 units p.o. daily, citalopram 10 mg at bedtime, vitamin B12 1000 mcg p.o. daily, digoxin 125 mcg p.o. 3 times a day, Colace 100 mg p.o. b.i.d. p.r.n., gabapentin 200 mg p.o. daily and gabapentin 300 mg p.o. at bedtime, Humulin Regular sliding scale, NovoLog FlexPen as directed 25 units before breakfast, 16 units before lunch, and 12 units before supper, Lantus 54 units subcutaneous daily, metoprolol succinate 150 mg p.o. daily, Nitrostat 0.4 mg sublingual p.r.n., MiraLax 17 grams p.o. daily p.r.n., potassium chloride 10 mEq p.o. at bedtime, Senokot S 1 tablet p.o. daily p.r.n., Fleets enema daily p.r.n., spironolactone 12.5 mg p.o. daily, torsemide 60 mg p.o. b.i.d., Vitron-C 1 tablet p.o. a.m., warfarin 1.5 mg p.o. on Tuesday and warfarin 3 mg p.o. on Tuesday, Tuesday, Tuesday, , Tuesday, and Saturdays. FAMILY HISTORY: Significant for sister who had colon cancer, diabetes, glaucoma, heart problems; mother had diabetes; father has heart disorder; brother has heart disorders. SOCIAL HISTORY: , lives alone. Quit smoking in November 2019, smoked half pack a day for 10 years. No alcohol use, no drug use. REVIEW OF SYSTEMS: As per HPI. Rest of the review of systems negative. PHYSICAL EXAMINATION: GENERAL: The patient is obese, not in acute distress. VITAL SIGNS: Temperature 36.7, pulse 72, respiratory rate 20, blood pressure 124/70, oxygen was 99% to 100%, but when she ambulated, it dropped to 81%. HEENT: Pupils equal, round, and reactive to light. Oral mucosa somewhat dry. NECK: No JVD, no neck masses. CARDIOVASCULAR: S1, S2 heard, regular rate and rhythm, no murmur, no gallop. RESPIRATORY SYSTEM: Normal AP diameter. No accessory muscle use. No wheezing. Mild bibasilar crackles. ABDOMEN: Soft, bowel sounds were nontender. No distention. CENTRAL NERVOUS SYSTEM: Cranial nerves II-XII grossly intact, nonfocal. EXTREMITIES: Chronic lower extremity edema present, no erythema seen. LABORATORY DATA: WBC 11, hemoglobin 12.5, hematocrit 38.4, platelets 176. PTT 60.8, INR 6.4, APTT 44.1. Sodium 140, potassium 3.7, chloride 103, bicarbonate 30, BUN 45, creatinine 1.36, serum glucose 67, calcium 10.2, total bilirubin 0.5, AST 14, ALT 20, alkaline phosphatase 90. Troponin I of 0.025. BNP 4400. IMAGING DATA: Chest x-ray, cardiomegaly, mild congestive change. ASSESSMENT AND PLAN: This is a 69-year-old female with history of coronary artery disease and congestive heart failure, who presents with chest pain and shortness of breath and was hypoxic after going to the bathroom. 1. Chest pain, rule out acute coronary syndrome. Initial troponin and EKG unremarkable. Currently chest pain resolved. We will follow the serial enzymes. She was recently here last month and echo was unremarkable at this time. Will continue her home medication of aspirin, statin, beta yessi, and consult cardiology in the a.m. for further recommendation. 2. Mlqid-gk-zdpyyib right-sided heart failure, history of cor pulmonale, on torsemide 60 mg p.o. b.i.d. at home and spironolactone 12.5 mg p.o. daily at home. She is on potassium supplement 10 mEq p.o. daily. Received IV Lasix 40 in the ER. Will continue with IV Lasix 40 b.i.d. Hold torsemide. Continue spironolactone. Follow the I's and O's, daily weights, and consult cardiology for further recommendation. 3. History of kdyyz-[id number]-[id number] respiratory failure, was desaturating after coming from the bathroom. Chronically on 3 liters of oxygen.Mostly from above. 4. History of obstructive sleep apnea, pulmonary hypertension, Continue oxygen supplementation and CPAP at bedtime. 5. Chronic atrial fibrillation. INR is supratherapeutic. We will hold the Coumadin. Follow the repeat INR. 6. History of diabetes, currently n.p.o. We will cut back on Lantus to 27 units daily and insulin sliding scale. Follow closely the blood sugars. 7. Hypertension. Continue Toprol-XL and diuretics. We will monitor the blood pressure. 8. Hyperlipidemia, on statin. 9. History of gout, on allopurinol. 10. Hypercalcemia, calcium is 10.2. We will follow the repeat labs. 11. Deep venous thrombosis prophylaxis, INR is supratherapeutic. Sequential compression devices. DISPOSITION: Closely monitor in tele floor. Level 1 full code. Expect to discharge home and follow with family doctor. ROSE
[2020-09-11 05:32] LABS: Basophils # (auto) 0.01 K/uL (0-0.2); Basophils % (auto) 0.1 %; Eosinophils % (auto) 1.1 %; Hematocrit (blood only) 35.6 % (37-47); Hemoglobin 11.4 g/dL (12.0-16.0); Immature Granulocytes # (auto) 0.03 K/uL (0.00-0.02); Immature Granulocytes % (auto) 0.3 %; Lymphocytes # (auto) 1.79 K/uL (1.2-3.4); Lymphocytes % (auto) 20.2 %; Mean Corpuscular Hemoglobin 30.2 pg (25-34); Mean Corpuscular Volume 94.2 fL (80-100); Mean Platelet Volume 9.9 fL (7.4-10.4); Monocytes # (auto) 0.43 K/uL (0.11-0.59); Monocytes % (auto) 4.9 %; Neutrophils % (auto) 73.4 %; Platelet Count 150 K/uL (130-400); RDW Coefficient of Variation 15.7 % (11.5-14.5); RDW Standard Deviation 53.6 fL (36.4-46.3); Red Blood Count 3.78 M/uL (4.2-5.4); White Blood Count 8.86 K/uL (4.8-10.8)
[2020-09-11 05:49] LABS: Prothrombin Time 65.9 Seconds (9.0-12.0)
[2020-09-11 05:58] LABS: BUN Creatinine Ratio 32.7 (10-20); Calcium 9.4 mg/dl (8.5-10.1); Creatinine Clr Calc Pharmacy 42.7 ml/min; Est GFR (African American) 46.4; Magnesium 2.1 mg/dl (1.8-2.4); Potassium 3.8 mmol/L (3.5-5.1)
[2020-09-11 05:59] LABS: INR 6.9 (0.9-1.1)
[2020-09-11 06:03] LABS: Troponin I 0.024 ng/ml (0-0.045)
[2020-09-11 08:10] LABS: Estimated Average Glucose 206 mg/dl; Hemoglobin A1C 8.8 % (4.5-5.6)
[2020-09-11] MEDS: FLUTICASONE/VILANTEROL 100/25MCG 14 PUFFS/INHALER INH SCH (08:13)
[2020-09-11] MEDS: ATORVASTATIN 40 MG TAB PO SCH (08:14)
[2020-09-11] MEDS: CHOLECALCIFEROL 1,000 UNITS 25 MCG TAB PO SCH (08:14)
[2020-09-11] MEDS: CYANOCOBALAMIN 500 MCG TABLET (VITAMIN B-12) PO SCH (08:14)
[2020-09-11] MEDS: GABAPENTIN 100 MG CAP PO SCH (08:14)
[2020-09-11] MEDS: allopurinoL 100 MG TAB PO SCH (08:14)
[2020-09-11] MEDS: SPIRONOLACTONE 12.5 MG TAB PO SCH (08:14)
[2020-09-11] MEDS: METOPROLOL SUCC 50MG EXT REL TAB PO SCH (08:14)
[2020-09-11] MEDS: FUROSEMIDE 40 MG in SYRINGE 0 ML IV SCH ×2 (08:15→17:12)
[2020-09-11] MEDS: INSULIN GLARGINE SOLOSTAR 100 UNITS/ML 3 ML PEN SC SCH (08:15)
[2020-09-11] MEDS: ASPIRIN 81 MG ECTAB PO SCH (08:15)
[2020-09-11] MEDS ORDERED: PHYTONADIONE 2.5 MG in SODIUM CHLORIDE 0.9% 50 ML IV ONE (08:25)
[2020-09-11] MEDS: INSULIN ASPART 100 UNITS/ML 3 ML PEN SC SCH ×4 (08:59→19:53)
[2020-09-11] MEDS ORDERED: NON-FORMULARY MEDICATION (Iron,Carbonyl-Vitamin C [Vitron-C] 1 TAB) PO SCH (09:00)
[2020-09-11] MEDS ORDERED: FUROSEMIDE 40 MG/4 ML VIAL IV SCH (09:00)
--- NOTE | 2020-09-11 12:43 | Cardiology Consultation ---
Date of Consultation September 11, 2020 Assessment & Plan (1) Atypical chest pain: (2) Acute on chronic respiratory failure: (3) Chronic atrial fibrillation: EKG performed this morning at 6:34 AM reveals atrial fibrillation at 74 bpm, with ST-T wave changes in the anterior lateral precordial leads suggestive of possible ischemia. This EKG pattern however is not a new finding for the patient, and she has had it for well over a year dating back to early 2018. Although her troponin is not undetectable, the elevation is flat and minimal, given her history as well as chest x-ray findings, I think the most prudent course would be to proceed with afterload reduction therapy diuretic therapy for suspected diastolic dysfunction, biventricular pressure/volume overload. No acute procedures planned today and therefore her diet can be advanced. We will discontinue her topical nitrate therapy for now as she notes headache. Continue IV furosemide 40 mg IV twice daily. Continue aspirin. Continue atorvastatin. Coumadin on hold for INR of 6.9, having been 6.4 on presentation. Given her history of past intracranial hemorrhage, I have ordered 2.5 mg of IV vitamin K. We will repeat her INR tomorrow. History of Present Illness Attending Physician: Mamadou Santo MD History of Present Illness Audrey Kumar is a 69-year-old female seen in cardiology consultation per the request of Dr Gracia for the evaluation of chest pressure. The patient's primary agriculture technician is Dr Jackson of our practice. She has a history of permanent atrial fibrillation, severe COPD, and chronic respiratory failure for which she is on home oxygen. She presents with complaint of a chest pressure sensation that started approximately 4 days ago. Presently, her symptoms have resolved after receiving IV diuretic therapy and topical nitrate therapy. She had been seen by my partner Dr. Fenton a month ago for chest discomfort, and at that time, the symptoms were atypical for angina, with a noted excoriation of her skin at the margin under her left breast. The skin lesion has improved per my inspection and she feels that her symptoms are different than what she complained of last time. An echocardiogram had recently been performed during her previous admission on 08/12/2020 with findings of moderate concentric left ventricular hypertrophy, LVEF 55 to 60%, flattened interventricular septum consistent with RV pressure overload with moderate right ventricular chamber dilatation and moderate right ventricular hypokinesis. Moderate biatrial enlargement was noted as well as mild mitral regurgitation mild tricuspid regurgitation. Findings were consistent with severe pulmonary hypertension with estimated PA systolic pressure in excess of 70 mmHg. Problem List: 1. Severe chronic obstructive lung disease/sleep apnea O2 dependent with associated cor pulmonale 2. Hypertensive heart disease and chronic diastolic dysfunction, mitral insufficiency 3. Morbid obesity 4. Severe pulmonary hypertension 5. Permanent atrial fibrillation 6. Type 2 diabetes mellitus with stage III chronic kidney disease 7. 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 Acute arterial embolism right axillary brachial status post embolectomy 12/26/2019 9. Patent foramen ovale 10. Polymyalgia rheumatica Allergies Allergy/AdvReac Type Severity Reaction Status Date / Time Penicillins Allergy Mild Unknown Verified 08/11/20 18:25 rofecoxib Allergy Unknown Unknown Verified 08/11/20 18:25 sulindac Allergy Unknown Unknown Verified 08/11/20 18: Home Medications Home Medications Medication Instructions Recorded Confirmed Type Lantus Solostar U-100 Insulin 54 unit SUBCUT DAILY 08/11/18 09/10/20 History atorvastatin 80 mg PO QAM 08/11/18 09/10/20 History nitroglycerin [Nitrostat] 0.4 mg SUBLINGUAL DIRECTED PRN 08/11/18 09/10/20 History torsemide 60 mg PO BID 10/22/19 09/10/20 History Breo Ellipta 1 inh INHALATION QAM 01/22/20 09/10/20 History Humulin R Regular U-100 Insuln 0 unit SUBCUT .SLIDINGSCALE 01/22/20 09/10/20 History allopurinol 200 mg PO QAM 01/22/20 09/10/20 History digoxin 125 mcg PO 3XWK 01/22/20 09/10/20 History gabapentin 200 mg PO DAILY 01/22/20 09/10/20 History albuterol sulfate 2.5 mg INHALATION BID PRN 04/04/20 09/10/20 History citalopram 10 mg PO HS 04/04/20 09/10/20 History metoprolol succinate [Toprol XL] 150 mg PO DAILY 04/04/20 09/10/20 History acetaminophen [Tylenol] 325 - 650 mg PO Q4 PRN MDD 10 05/06/20 09/10/20 History TABS/24 HOURS cholecalciferol (vitamin D3) 2,000 unit PO QAM 05/06/20 09/10/20 History [Vitamin D3] cyanocobalamin (vitamin B-12) 1,000 mcg PO QAM 05/06/20 09/10/20 History [Vitamin B-12] warfarin 1.5 mg PO PERKINS 05/06/20 09/10/20 History Vitron-C 1 tab PO QAM 08/11/20 09/10/20 History bisacodyl 10 mg [place] DAILY PRN 08/11/20 09/10/20 History docusate sodium 100 mg PO BID PRN 08/11/20 09/10/20 History insulin aspart U-100 [Novolog See Rx Instructions .ROUTE .COMPLEX 08/11/20 09/10/20 History Flexpen U-100 Insulin] polyethylene glycol 3350 17 g PO DAILY PRN 08/11/20 09/10/20 History potassium chloride 10 meq PO HS 08/11/20 09/10/20 History warfarin 3 mg PO [id number]@1600 08/11/20 09/10/20 History aspirin 81 mg PO QAM 30 Days #30 tab 08/14/20 09/10/20 Rx spironolactone 12.5 mg PO DAILY 30 Days #15 tab 08/14/20 09/10/20 Rx gabapentin [Neurontin] 300 mg PO HS 09/10/20 09/10/20 History sennosides-docusate sodium 1 tab-cap PO DAILY PRN 09/10/20 09/10/20 History [Senna-S] sodium phosphates [Fleet Enema] 118 ml [place] DAILY PRN 09/10/20 09/10/20 History Patient History Medical History Anemia (11/27/13) Chronic atrial fibrillation Chronic respiratory failure with hypoxia CKD (chronic kidney disease) stage 3, GFR 30-59 ml/min Diabetes mellitus, type II Dyslipidemia Fluid overload HTN (hypertension) Lumbar radiculopathy NUVIA on CPAP Pickwickian syndrome Polymyalgia rheumatica Right-sided heart failure Tobacco use disorder Surgical History History of hysterectomy History of total knee replacement Family History Father Heart disease Stroke Mother Diabetes Social History Smoking Status: Former smoker Tobacco Type: Cigarettes Cigarettes Per Day: 10; Second Hand Exposure: No; Hx Alcohol Use: No Hx Substance Use: No Preferred Language: Sami Communication Ability: Effective Roustabout Pusher Required: No Beliefs That Will Affect Care: None marital status: / Current Living Situation: Alone Other Information That Helps Us Care for You: No Feels Safe at Home: Yes Safety Concerns: Feels Safe At This Time Assistive Devices: Walker Physical Exam Physical Exam: Temp Pulse Resp BP Pulse Ox 36.6 C 76 19 124/61 100 09/11/20 11:41 09/11/20 11:41 09/11/20 11:41 09/11/20 11:41 09/11/20 11:41 Constitutional: WD/WN, vitals as above Respiratory: Mildly decreased breath sounds the bases, no rales or wheezing Cardiovascular: Rate/Rhythm: + irregularly irregular Heart Sounds: + murmur (1/6 systolic murmur) Vessels: + JVD (Jugular venous pressure difficult to assess due to patient's body habitus) Extremities: + edema (Trace lower extremity edema, chronic venous stasis changes) Chest (Breasts): Additional Comments: Healing excoriation of the skin under the left breast Gastrointestinal (Abdomen): normal bowel sounds, soft, nontender, no hepatosplenomegaly Neurologic: PERRL, EOMI, accommodation nl, no face palsy, no dysarthria Results & Data ([facility]) Vital Signs (Past 12 Hours) Vital Signs Temp Pulse Pulse Resp BP Pulse Ox 09/11/20 11:41 36.6 C 76 19 124/61 100 09/11/20 03:05 75 09/11/20 02:39 88 18 93 09/11/20 01:50 36.5 C 75 18 129/82 93 Laboratory Results Cardiac Enzymes 09/10/20 09/11/20 09/11/20 Range/Units 20:39 05:18 10:45 AST 14 L (15-37) U/L Troponin I 0.025 0.024 0.024 (0-0.045) ng/ml Coagulation 09/10/20 09/11/20 Range/Units 20:39 05:18 PT 60.8 H 65.9 H (9.0-12.0) Seconds APTT 44.1 H (21.0-31.0) Seconds CBC 09/10/20 09/11/20 Range/Units 20:39 05:18 WBC 11.02 H 8.86 (4.8-10.8) K/uL RBC 4.10 L 3.78 L (4.2-5.4) M/uL Hgb 12.5 11.4 L (12.0-16.0) g/dL Hct 38.4 35.6 L (37-47) % Plt Count 176 150 (130-400) K/uL Neut # (Auto) 8.15 H 6.50 (1.4-6.5) K/uL Lymph # (Auto) 1.93 1.79 (1.2-3.4) K/uL [place] # (Auto) 0.71 H 0.43 (0.11-0.59) K/uL Eos # (Auto) 0.15 0.10 (0-0.5) K/uL Baso # (Auto) 0.03 0.01 (0-0.2) K/uL Comprehensive Metabolic Panel 09/10/20 09/11/20 Range/Units 20:39 05:18 Sodium 140 142 (136-145) mmol/L Potassium 3.7 3.8 (3.5-5.1) mmol/L Chloride 103 104 (98-107) mmol/L Carbon Dioxide 30 34 H (21-32) mmol/L BUN 45 H 44 H (7-18) mg/dl Creatinine 1.36 H 1.34 H (0.6-1.2) mg/dl Glucose 67 L 134 H (70-99) mg/dl Calcium 10.2 H 9.4 (8.5-10.1) mg/dl AST 14 L (15-37) U/L ALT 20 (12-78) U/L Alkaline Phosphatase 90 (45-117) U/L Total Protein 7.0 (6.4-8.2) gm/dl Albumin 3.3 L (3.4-5.0) gm/dl Intake and Output 09/10/20 09/11/20 09/11/20 22:59 06:59 14:59 Intake Total 50.25 / 50.25 Output Total 400 / 400 Balance -400 / -400 50.25 / 50.25 Intake: IV 50.25 / 50.25 Aqua-Mephyton 2.5 mg In Nss 50 50.25 / 50.25 ml @ 100.5 mls/hr IV ONE ONE Rx #:[id number] Output: Urine 400 / 400 Other: Weight 104.3 kg 101.6 kg Weight Measurement Method Built in [facility] Standing Scale
--- NOTE | 2020-09-11 14:35 | Hospitalist Progress Note ---
Date of Service September 11, 2020 Assessment & Plan (1) Acute exacerbation of congestive heart failure: Acute on chronic R sided heart failure with preserved EF Presented with increasing shortness of breath and chest pain Chest x-ray confirmed cardiomegaly with mild congestive heart failure Has been receiving intravenous Lasix and clinically improving Echo on 08/12/20 showed ;moderate concentric left ventricular hypertrophy, LVEF 55 to 60%, Flattened interventricular septum consistent with RV pressure overload with moderate right ventricular chamber dilatation and moderate right ventricular hypokinesis. Moderate biatrial enlargement was noted as well as mild mitral regurgitation mild tricuspid regurgitation. Findings were consistent with severe pulmonary hypertension with estimated PA systolic pressure in excess of 70 mmHg. Appreciate cardiology input and recommendation We will monitor kidney function and electrolytes (2) Atypical chest pain: No more chest pain since admission Serial troponins were unremarkable and EKG did not show any significant change (3) Acute on chronic respiratory failure: Secondary to CHF Clinically better Continue current management including increasing oxygen administration (4) NUVIA on CPAP: (5) Chronic atrial fibrillation: Rate is controlled now Has Supratherapeutic INR Coumadin is on hold (6) Diabetes mellitus, type II: SSI (7) HTN (hypertension): Blood pressure is controlled Admission and Anticipated Discharge Date Admission Date: September 11, 2020 Subjective 09/11/2020 The patient was seen and examined in telemetry unit She was admitted with atypical chest pain with increasing shortness of breath Has been feeling much better since this morning Diabetes is enough and denies any shortness of breath at rest and the chest pain is gone Review of Systems Review of Systems: All systems reviewed and are unremarkable except as noted below Cardiovascular: + chest pain, + dyspnea on exertion and + palpitations Physical Exam Physical Exam: Sitting on a chair without any acute distress Constitutional: well developed, well nourished and + obese; no acute distress and not ill appearing Eyes: PERRL, conjunctivae normal, anicteric sclerae ENMT: external ear and nose normal, oropharynx normal Neck: trachea midline, no thyromegaly Respiratory: normal respiratory effort and + labored breathing; no respiratory distress Auscultation: + diminished lung sounds and + crackles (Minimal crackles at the bases) Cardiovascular: Rate/Rhythm: + abnormal rate and + abnormal rhythm Heart Sounds: + murmur (1/6 to 2/6 ESM over precordium) Extremities: + edema (Trace edema bilaterally) Gastrointestinal (Abdomen): Inspection/Auscultation: abdomen normal to inspection; abdomen not distended Percussion/Palpation: abdomen soft; abdomen nontender Musculoskeletal: No acute arthritis involving any joints Neurologic: moves all extremities; no focal motor deficits Psychiatric: A+Ox3, euthymic affect Lymphatic: no cervical or axillary lymphadenopathy Results & Data Results & Data ([facility]) Vital Signs (Past 12 Hours) Vital Signs Temp Pulse Pulse Resp BP Pulse Ox 09/11/20 11:41 36.6 C 76 19 124/61 100 09/11/20 03:05 75 09/11/20 02:39 88 18 93 Laboratory Results Short CBC 09/10/20 09/11/20 Range/Units 20:39 05:18 WBC 11.02 H 8.86 (4.8-10.8) K/uL Hgb 12.5 11.4 L (12.0-16.0) g/dL Hct 38.4 35.6 L (37-47) % Plt Count 176 150 (130-400) K/uL BMP 09/10/20 09/11/20 20:39 05:18 Sodium 140 142 Potassium 3.7 3.8 Chloride 103 104 Carbon Dioxide 30 34 H BUN 45 H 44 H Creatinine 1.36 H 1.34 H Glucose 67 L 134 H Calcium 10.2 H 9.4 Cardiac Enzymes 09/10/20 09/11/20 09/11/20 Range/Units 20:39 05:18 10:45 Troponin I 0.025 0.024 0.024 (0-0.045) ng/ml Liver Function 09/10/20 Range/Units 20:39 Total Bilirubin 0.5 (0.2-1) mg/dl AST 14 L (15-37) U/L ALT 20 (12-78) U/L Alkaline Phosphatase 90 (45-117) U/L Albumin 3.3 L (3.4-5.0) gm/dl Medications Administered Current Inpatient Medications Acetaminophen (Acetaminophen 325 Mg Tab) 650 mg PO Q4H PRN PRN Reason: Pain or Fever Stop: 10/11/20 01:56 Albuterol (Albuterol 0.083% Nebu Soln 3 Ml Vial) 2.5 mg INH BID PRN PRN Reason: Wheezing Stop: 10/11/20 01:56 Allopurinol ([facility] 100 Mg Tab) [facility]: 10/11/20 08:59 Last Admin: 09/11/20 08:14 Dose: 200 mg Documented by: Aspirin (Aspirin 81 Mg Ectab) 81 mg PO QAM [facility] Stop: 10/11/20 08:59 Last Admin: 09/11/20 08:15 Dose: 81 mg Documented by: Atorvastatin Calcium (Atorvastatin 40 Mg Tab) 80 mg PO QAM [facility] Stop: 10/11/20 08:59 Last Admin: 09/11/20 08:14 Dose: 80 mg Documented by: Bisacodyl (Bisacodyl 10 Mg Supp) 10 mg [place] DAILY PRN PRN Reason: Constipation Stop: 10/11/20 01:56 Citalopram Hydrobromide (Citalopram 20 Mg Tab) 10 mg PO [facility] Stop: 10/11/20 20:59 Cyanocobalamin (Cyanocobalamin 500 Mcg Tablet (Vitamin B-12)) 1,000 [facility]cg [facility]: 10/11/20 08:59 Last Admin: 09/11/20 08:14 Dose: 1,000 mcg Documented by: Dextrose (Dextrose 50% 50 Ml Syringe) 25 - 50 ml IV UD PRN; Protocol PRN Reason: Hypoglycemia Protocol Stop: 10/11/20 02:29 Digoxin (Digoxin 0.125 Mg Tab) 0.125 mg PO MoWeFr@2100 [facility] Stop: 10/12/20 20:59 Docusate Sodium (Docusate Sodium 100 Mg Cap) 100 mg PO BID PRN PRN Reason: Constipation Stop: 10/11/20 01:56 Fluticasone/Vilanterol (Fluticasone/Vilanterol 100/25mcg 14 Puffs/Inhaler) 1 puffs INH [facility] Stop: 10/11/20 08:59 Last Admin: 09/11/20 08:13 Dose: 1 puffs Documented by: Gabapentin (Gabapentin 300 Mg Cap) 300 mg PO [facility] Stop: 10/11/20 20:59 Gabapentin (Gabapentin 100 Mg Cap) 200 mg PO DAILY [facility] Stop: 10/11/20 08:59 Last Admin: 09/11/20 08:14 Dose: 200 mg Documented by: Glucagon (Glucagon For Inj 1 Mg Vial) 1 mg SQ UD PRN; Protocol PRN Reason: Hypoglycemia Protocol Stop: 10/11/20 02:29 Glucose (Glucose 40% Gel 15 Gm Tube) 15 - 30 gm PO UD PRN; Protocol PRN Reason: Hypoglycemia Protocol Stop: 10/11/20 02:29 Glucose (Glucose 10 Tabs/Tube) 4 - 8 tabs PO UD PRN; Protocol PRN Reason: Hypoglycemia Protocol Stop: 10/11/20 02:29 Furosemide 40 mg/ Syringe 4 mls @ 4 mls/min IV [id number] [facility] Stop: 10/11/20 08:59 Last Admin: 09/11/20 08:15 Dose: 4 mls/min Documented by: Insulin Aspart (Insulin Aspart 100 Units/Ml 3 Ml Pen) 0 units SC ACHS [facility] Stop: 10/11/20 07:29 Last Admin: 09/11/20 12:20 Dose: 4 units Documented by: Insulin Glargine (Insulin Glargine Solostar 100 Units/Ml 3 Ml Pen) 27 units [place] DAILY [facility] Stop: 10/11/20 08:59 Last Admin: 09/11/20 08:15 Dose: 27 units Documented by: Metoprolol Succinate (Metoprolol Succ 50mg Ext Rel Tab) 150 mg PO DAILY [facility] Stop: 10/11/20 08:59 Last Admin: 09/11/20 08:14 Dose: 150 mg Documented by: Miscellaneous (Carbohydrates For Hypoglycemia ) 15 - 30 gm PO UD PRN PRN Reason: Hypoglycemia Treatment Stop: 10/11/20 02:29 Nitroglycerin (Nitroglycerin Sl 0.4 Mg/Tab Tab) 0.4 mg SL UD PRN PRN Reason: Chest Pain Stop: 10/11/20 01:56 Ondansetron HCl (Ondansetron Inj 2 Mg/Ml 2 Ml Vial) 4 mg IV Q6H PRN PRN Reason: Nausea Stop: 10/11/20 01:56 Polyethylene Glycol (Polyethylene (Miralax) 17 Gm Pack) 17 gm PO DAILY PRN PRN Reason: Constipation Stop: 10/11/20 01:56 Potassium Chloride (Potassium Chloride 10 Meq Tabcr) 10 meq PO HS [facility] Stop: 10/11/20 20:59 Senna/Docusate Sodium (Docusate Sodium/Senna 50/8.6mg Tab) 1 tab PO DAILY PRN PRN Reason: Constipation Stop: 10/11/20 01:56 Sodium Biphosphate/Sodium Phosphate (Sod Phosphate/Sod Biphosphate Enema 132 Ml Btl) 132 ml [place] DAILY PRN PRN Reason: Constipation Stop: 10/11/20 01:56 Spironolactone (Spironolactone 12.5 Mg Tab) 12.5 mg PO DAILY [facility] Stop: 10/11/20 08:59 Last Admin: 09/11/20 08:14 Dose: 12.5 mg Documented by: Vitamin D (Cholecalciferol 1,000 Units 25 Mcg Tab) 2,000 units PO QAM [facility] Stop: 10/11/20 08:59 Last Admin: 09/11/20 08:14 Dose: 2,000 units Documented by: (1) Acute exacerbation of congestive heart failure Heart failure type: unspecified Qualified Code(s): I50.9 - Heart failure, unspecified (2) Diabetes mellitus, type II Diabetes mellitus usp insulin use: unspecified usp insulin use status Diabetes mellitus complication status: with kidney complications Diabetes mellitus complication detail: with chronic kidney disease (3) HTN (hypertension) Hypertension type: unspecified Qualified Code(s): I10 - Essential (primary) hypertension
[2020-09-11] MEDS ORDERED: GABAPENTIN 300 MG CAP PO SCH (21:00)
[2020-09-11] MEDS ORDERED: CITALOPRAM 20 MG TAB PO SCH (21:00)
[2020-09-11] MEDS ORDERED: POTASSIUM CHLORIDE 10 MEQ TABCR PO SCH (21:00)
--- NOTE | 2020-09-11 23:34 | Electrocardiogram Report ---
Test Reason : Blood Pressure : / mmHG Vent. Rate : 082 BPM Atrial Rate : 357 BPM P-R Int : 000 ms QRS Dur : 080 ms QT Int : 398 ms P-R-T Axes : 000 031 095 degrees QTc Int : 464 ms Atrial fibrillation Abnormal ECG When compared with ECG of 13-AUG-2020 07:25, No significant change was found Confirmed by Patrick Rojas ([id number]) on 09/11/2020 11:34:38 PM Referred By: REFERRED SELF Confirmed By:Patrick Rojas
--- NOTE | 2020-09-11 23:38 | Electrocardiogram Report ---
Test Reason : Blood Pressure : / mmHG Vent. Rate : 074 BPM Atrial Rate : 182 BPM P-R Int : 000 ms QRS Dur : 086 ms QT Int : 418 ms P-R-T Axes : 000 070 -81 degrees QTc Int : 463 ms Atrial fibrillation Abnormal ECG When compared with ECG of 13-AUG-2020 07:25, No significant change was found Confirmed by Patrick Rojas ([id number]) on 09/11/2020 11:38:09 PM Referred By: REFERRED SELF Confirmed By:Patrick Rojas
[2020-09-12 08:08] LABS: Basophils # (auto) 0.02 K/uL (0-0.2); Basophils % (auto) 0.3 %; Eosinophils # (auto) 0.14 K/uL (0-0.5); Eosinophils % (auto) 1.9 %; Hematocrit (blood only) 37.8 % (37-47); Hemoglobin 11.6 g/dL (12.0-16.0); Immature Granulocytes # (auto) 0.03 K/uL (0.00-0.02); Immature Granulocytes % (auto) 0.4 %; Lymphocytes # (auto) 1.39 K/uL (1.2-3.4); Lymphocytes % (auto) 19.1 %; Mean Corpuscular Hemoglobin 29.1 pg (25-34); Mean Corpuscular Hgb Conc 30.7 g/dL (32-36); Mean Corpuscular Volume 94.7 fL (80-100); Mean Platelet Volume 9.7 fL (7.4-10.4); Monocytes # (auto) 0.38 K/uL (0.11-0.59); Monocytes % (auto) 5.2 %; Neutrophils # (auto) 5.32 K/uL (1.4-6.5); Neutrophils % (auto) 73.1 %; Platelet Count 145 K/uL (130-400); RDW Coefficient of Variation 15.7 % (11.5-14.5); RDW Standard Deviation 54.3 fL (36.4-46.3); Red Blood Count 3.99 M/uL (4.2-5.4); White Blood Count 7.28 K/uL (4.8-10.8)
[2020-09-12 08:17] LABS: INR 1.4 (0.9-1.1); Prothrombin Time 14.7 Seconds (9.0-12.0)
[2020-09-12 08:39] LABS: BUN Creatinine Ratio 33.1 (10-20); Calcium 9.9 mg/dl (8.5-10.1); Creatinine Clr Calc Pharmacy 41.6 ml/min; Est GFR (African American) 45.2; Magnesium 2.3 mg/dl (1.8-2.4); Potassium 3.9 mmol/L (3.5-5.1)
[2020-09-12 08:40] LABS: Phosphorus 3.7 mg/dl (2.5-4.9)
[2020-09-12] MEDS: FLUTICASONE/VILANTEROL 100/25MCG 14 PUFFS/INHALER INH SCH (08:52)
[2020-09-12] MEDS: ATORVASTATIN 40 MG TAB PO SCH (08:52)
[2020-09-12] MEDS: METOPROLOL SUCC 50MG EXT REL TAB PO SCH (08:52)
[2020-09-12] MEDS: INSULIN GLARGINE SOLOSTAR 100 UNITS/ML 3 ML PEN SC SCH (08:53)
[2020-09-12] MEDS: allopurinoL 100 MG TAB PO SCH (08:53)
[2020-09-12] MEDS: GABAPENTIN 100 MG CAP PO SCH (08:53)
[2020-09-12] MEDS: SPIRONOLACTONE 12.5 MG TAB PO SCH (08:53)
[2020-09-12] MEDS: FUROSEMIDE 40 MG in SYRINGE 0 ML IV SCH ×2 (08:53→18:07)
[2020-09-12] MEDS: CYANOCOBALAMIN 500 MCG TABLET (VITAMIN B-12) PO SCH (08:53)
[2020-09-12] MEDS: CHOLECALCIFEROL 1,000 UNITS 25 MCG TAB PO SCH (08:53)
[2020-09-12] MEDS: ASPIRIN 81 MG ECTAB PO SCH (08:53)
[2020-09-12] MEDS: INSULIN ASPART 100 UNITS/ML 3 ML PEN SC SCH ×3 (08:54→18:06)
--- NOTE | 2020-09-12 10:51 | Electrocardiogram Report ---
Test Reason : Blood Pressure : / mmHG Vent. Rate : 065 BPM Atrial Rate : 000 BPM P-R Int : 000 ms QRS Dur : 086 ms QT Int : 414 ms P-R-T Axes : 000 041 005 degrees QTc Int : 430 ms Atrial fibrillation Abnormal ECG When compared with ECG of 11-SEP-2020 06:34, No significant change was found Confirmed by Santana Wynn ([id number]) on 09/12/2020 10:51:21 AM Referred By: REFERRED SELF Confirmed By:Santana Wynn
--- NOTE | 2020-09-12 15:00 | Hospitalist Progress Note ---
Date of Service September 12, 2020 Assessment & Plan (1) Acute exacerbation of congestive heart failure: Acute on chronic R sided heart failure with preserved EF Presented with increasing shortness of breath and chest pain Chest x-ray confirmed cardiomegaly with mild congestive heart failure Has been receiving intravenous Lasix and clinically improving Echo on 08/12/20 showed ;moderate concentric left ventricular hypertrophy, LVEF 55 to 60%, Flattened interventricular septum consistent with RV pressure overload with moderate right ventricular chamber dilatation and moderate right ventricular hypokinesis. Moderate biatrial enlargement was noted as well as mild mitral regurgitation mild tricuspid regurgitation. Findings were consistent with severe pulmonary hypertension with estimated PA systolic pressure in excess of 70 mmHg. Appreciate cardiology input and recommendation We will monitor kidney function and electrolytes-unremarkable. Creatinine remains minimally high at 1.37 which was 1.27 on Has been feeling a lot better and would like to go home this afternoon (2) Atypical chest pain: No more chest pain since admission Serial troponins were unremarkable and EKG did not show any significant change Normal chest pain and no palpitation (3) Acute on chronic respiratory failure: Secondary to CHF Clinically better Continue current management including increasing oxygen administration Her respiratory status has been at baseline (4) NUVIA on CPAP: (5) Chronic atrial fibrillation: Rate is controlled now Has Supratherapeutic INR Coumadin is on hold Coumadin has been restarted from today (6) Diabetes mellitus, type II: SSI (7) HTN (hypertension): Blood pressure is controlled Admission and Anticipated Discharge Date Admission Date: September 11, 2020 Subjective 09/11/2020 The patient was seen and examined in telemetry unit She was admitted with atypical chest pain with increasing shortness of breath Has been feeling much better since this morning Diabetes is enough and denies any shortness of breath at rest and the chest pain is gone 09/12/2020 The patient was seen and examined in telemetry unit She has been feeling a lot better denies any symptoms of palpitation and/or shortness of breath Her leg swelling has gone down to She wants to go home this afternoon Review of Systems Review of Systems: All systems reviewed and are unremarkable except as noted below Cardiovascular: no chest pain, no dyspnea on exertion and no palpitations Physical Exam Physical Exam: Sitting on a chair without any acute distress Constitutional: well developed, well nourished and + obese; no acute distress and not ill appearing Eyes: PERRL, conjunctivae normal, anicteric sclerae ENMT: external ear and nose normal, oropharynx normal Neck: trachea midline, no thyromegaly Respiratory: normal respiratory effort and + labored breathing; no respiratory distress Auscultation: + diminished lung sounds and + crackles (Minimal crackles at the bases) Cardiovascular: Rate/Rhythm: + abnormal rate and + abnormal rhythm Heart Sounds: + murmur (1/6 to 2/6 ESM over precordium) Extremities: + edema (Trace edema bilaterally) Gastrointestinal (Abdomen): Inspection/Auscultation: abdomen normal to inspection; abdomen not distended Percussion/Palpation: abdomen soft; abdomen nontender Musculoskeletal: No acute arthritis involving any joint Neurologic: moves all extremities; no focal motor deficits Psychiatric: A+Ox3, euthymic affect Lymphatic: no cervical or axillary lymphadenopathy Results & Data Results & Data ([facility]) Vital Signs (Past 12 Hours) Vital Signs Temp Pulse Pulse Resp BP Pulse Ox 09/12/20 11:12 36.5 C 84 22 135/78 100 09/12/20 08:00 78 09/12/20 07:53 36.4 C L 76 19 135/84 97 09/12/20 04:52 36.6 C 77 19 140/88 96 09/12/20 03:17 78 20 94 Laboratory Results Short CBC 09/12/20 Range/Units 07:44 WBC 7.28 (4.8-10.8) K/uL Hgb 11.6 L (12.0-16.0) g/dL Hct 37.8 (37-47) % Plt Count 145 (130-400) K/uL BMP 09/12/20 07:44 Sodium 141 Potassium 3.9 Chloride 105 Carbon Dioxide 31 BUN 45 H Creatinine 1.37 H Glucose 148 H Calcium 9.9 Cardiac Enzymes 09/11/20 Range/Units 17:10 Troponin I 0.021 (0-0.045) ng/ml Medications Administered Current Inpatient Medications Acetaminophen (Acetaminophen 325 Mg Tab) 650 mg PO Q4H PRN PRN Reason: Pain or Fever Stop: 10/11/20 01:56 Albuterol (Albuterol 0.083% Nebu Soln 3 Ml Vial) 2.5 mg INH BID PRN PRN Reason: Wheezing Stop: 10/11/20 01:56 Allopurinol (Allopurinol 100 Mg Tab) 200 mg PO QAM [facility] Stop: 10/11/20 08:59 Last Admin: 09/12/20 08:53 Dose: 200 mg Documented by: Aspirin (Aspirin 81 Mg Ectab) 81 mg PO QAM [facility] Stop: 10/11/20 08:59 Last Admin: 09/12/20 08:53 Dose: 81 mg Documented by: Atorvastatin Calcium (Atorvastatin 40 Mg Tab) 80 mg PO QAM [facility] Stop: 10/11/20 08:59 Last Admin: 09/12/20 08:52 Dose: 80 mg Documented by: Bisacodyl (Bisacodyl 10 Mg Supp) 10 mg PA DAILY PRN PRN Reason: Constipation Stop: 10/11/20 01:56 Citalopram Hydrobromide (Citalopram 20 Mg Tab) 10 mg PO [facility] Stop: 10/11/20 20:59 Last Admin: 09/11/20 20:20 Dose: 10 mg Documented by: Cyanocobalamin (Cyanocobalamin 500 Mcg Tablet (Vitamin B-12)) 1,000 mcg PO QAM [facility] Stop: 10/11/20 08:59 Last Admin: 09/12/20 08:53 Dose: 1,000 mcg Documented by: Dextrose (Dextrose 50% 50 Ml Syringe) 25 - 50 ml IV UD PRN; Protocol PRN Reason: Hypoglycemia Protocol Stop: 10/11/20 02:29 Digoxin (Digoxin 0.125 Mg Tab) 0.125 mg PO MoWeFr@2100 [facility] Stop: 10/12/20 20:59 Docusate Sodium (Docusate Sodium 100 Mg Cap) 100 mg PO BID PRN PRN Reason: Constipation Stop: 10/11/20 01:56 Fluticasone/Vilanterol (Fluticasone/Vilanterol 100/25mcg 14 Puffs/Inhaler) [facility] Stop: 10/11/20 08:59 Last Admin: 09/12/20 08:52 Dose: 1 puffs Documented by: Gabapentin (Gabapentin 300 Mg Cap) 300 mg PO [facility] Stop: 10/11/20 20:59 Last Admin: 09/11/20 20:20 Dose: 300 mg Documented by: Gabapentin (Gabapentin 100 Mg Cap) 200 mg PO DAILY [facility] Stop: 10/11/20 08:59 Last Admin: 09/12/20 08:53 Dose: 200 mg Documented by: Glucagon (Glucagon For Inj 1 Mg Vial) 1 mg SQ UD PRN; Protocol PRN Reason: Hypoglycemia Protocol Stop: 10/11/20 02:29 Glucose (Glucose 40% Gel 15 Gm Tube) 15 - 30 gm PO UD PRN; Protocol PRN Reason: Hypoglycemia Protocol Stop: 10/11/20 02:29 Glucose (Glucose 10 Tabs/Tube) 4 - 8 tabs PO UD PRN; Protocol PRN Reason: Hypoglycemia Protocol Stop: 10/11/20 02:29 Furosemide 40 mg/ Syringe 4 mls @ 4 mls/min IV [id number] [facility] Stop: 10/11/20 08:59 Last Admin: 09/12/20 08:53 Dose: 4 mls/min Documented by: Insulin Aspart (Insulin Aspart 100 Units/Ml 3 Ml Pen) 0 units SC ACHS [facility] Stop: 10/11/20 07:29 Last Admin: 09/12/20 12:32 Dose: 10 units Documented by: Insulin Glargine (Insulin Glargine Solostar 100 Units/Ml 3 Ml Pen) 27 units SC DAILY [facility] Stop: 10/11/20 08:59 Last Admin: 09/12/20 08:53 Dose: 27 units Documented by: Metoprolol Succinate (Metoprolol Succ 50mg Ext Rel Tab) 150 mg PO DAILY [facility] Stop: 10/11/20 08:59 Last Admin: 09/12/20 08:52 Dose: 150 mg Documented by: Miscellaneous (Carbohydrates For Hypoglycemia ) 15 - 30 gm PO UD PRN PRN Reason: Hypoglycemia Treatment Stop: 10/11/20 02:29 Nitroglycerin (Nitroglycerin Sl 0.4 Mg/Tab Tab) 0.4 mg SL UD PRN PRN Reason: Chest Pain Stop: 10/11/20 01:56 Ondansetron HCl (Ondansetron Inj 2 Mg/Ml 2 Ml Vial) 4 mg IV Q6H PRN PRN Reason: Nausea Stop: 10/11/20 01:56 Polyethylene Glycol (Polyethylene (Miralax) 17 Gm Pack) 17 gm PO DAILY PRN PRN Reason: Constipation Stop: 10/11/20 01:56 Potassium Chloride (Potassium Chloride 10 Meq Tabcr) 10 meq PO HS [facility] Stop: 10/11/20 20:59 Last Admin: 09/11/20 20:20 Dose: 10 meq Documented by: Senna/Docusate Sodium (Docusate Sodium/Senna 50/8.6mg Tab) 1 tab PO DAILY PRN PRN Reason: Constipation Stop: 10/11/20 01:56 Sodium Biphosphate/Sodium Phosphate (Sod Phosphate/Sod Biphosphate Enema 132 Ml Btl) 132 ml PA DAILY PRN PRN Reason: Constipation Stop: 10/11/20 01:56 Spironolactone (Spironolactone 12.5 Mg Tab) 12.5 mg PO DAILY [facility] Stop: 10/11/20 08:59 Last Admin: 09/12/20 08:53 Dose: 12.5 mg Documented by: Vitamin D (Cholecalciferol 1,000 Units 25 Mcg Tab) 2,000 units PO QAM [facility] Stop: 10/11/20 08:59 Last Admin: 09/12/20 08:53 Dose: 2,000 units Documented by: (1) Acute exacerbation of congestive heart failure Heart failure type: unspecified Qualified Code(s): I50.9 - Heart failure, unspecified (2) 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
--- NOTE | 2020-09-12 16:17 | Cardiology Progress Note ---
Date of Service September 12, 2020 Assessment & Plan (1) Atypical chest pain: (2) Acute on chronic respiratory failure: (3) Chronic atrial fibrillation: EKG with chronic repolarization changes consistent with anterior ischemia, unchanged compared to prior tracings dating back to 2019. Although serial troponin levels this admission have not been undetectable, they are still within normal limits. Echocardiogram has been performed last month when she was admitted for volume overload with findings consistent with cor pulmonale physiology, right ventricular chamber dilatation, septal flattening, severe pulmonary hypertension. Although the patient could very well have underlying coronary heart disease, I feel her symptoms were consistent with recurrent volume overload, that improved shortly after her first dose of IV diuretics. Adherence to her home regimen is questioned. She feels well, and actually felt better after her topical nitroglycerin was removed yesterday. Recommend discharge on her prior to hospital medications including torsemide 60 mg twice daily and spironolactone. Admission and Anticipated Discharge Date Admission Date: September 11, 2020 Subjective Patient seen in follow-up. Denies any additional chest discomfort. Feeling well. Eager for discharge. Physical Exam Physical Exam: Temp Pulse Resp BP Pulse Ox 36.5 C 84 22 135/78 100 09/12/20 11:12 09/12/20 11:12 09/12/20 11:12 09/12/20 11:12 09/12/20 11:12 Constitutional: WD/WN, vitals as above Cardiovascular: Rate/Rhythm: + irregularly irregular Heart Sounds: + murmur (1/6 systolic murmur) Gastrointestinal (Abdomen): normal bowel sounds, soft, nontender, no hepatosplenomegaly Neurologic: PERRL, EOMI, accommodation nl, no face palsy, no dysarthria Results & Data ([facility]) Vital Signs (Past 12 Hours) Vital Signs Temp Pulse Pulse Resp BP Pulse Ox 09/12/20 11:12 36.5 C 84 22 135/78 100 09/12/20 08:00 78 09/12/20 07:53 36.4 C L 76 19 135/84 97 09/12/20 04:52 36.6 C 77 19 140/88 96 Laboratory Results Cardiac Enzymes 09/11/20 Range/Units 17:10 Troponin I 0.021 (0-0.045) ng/ml Coagulation 09/12/20 Range/Units 07:44 PT 14.7 H (9.0-12.0) Seconds CBC 09/12/20 Range/Units 07:44 WBC 7.28 (4.8-10.8) K/uL RBC 3.99 L (4.2-5.4) M/uL Hgb 11.6 L (12.0-16.0) g/dL Hct 37.8 (37-47) % Plt Count 145 (130-400) K/uL Neut # (Auto) 5.32 (1.4-6.5) K/uL Lymph # (Auto) 1.39 (1.2-3.4) K/uL [place] # (Auto) 0.38 (0.11-0.59) K/uL Eos # (Auto) 0.14 (0-0.5) K/uL Baso # (Auto) 0.02 (0-0.2) K/uL Comprehensive Metabolic Panel 09/12/20 Range/Units 07:44 Sodium 141 (136-145) mmol/L Potassium 3.9 (3.5-5.1) mmol/L Chloride 105 (98-107) mmol/L Carbon Dioxide 31 (21-32) mmol/L BUN 45 H (7-18) mg/dl Creatinine 1.37 H (0.6-1.2) mg/dl Glucose 148 H (70-99) mg/dl Calcium 9.9 (8.5-10.1) mg/dl Intake and Output 09/12/20 09/12/20 09/12/20 06:59 14:59 22:59 Intake Total 550 / 550 Output Total 500 / 1800 200 / 200 Balance -500 / -854.75 350 / 350 Intake: Oral 550 / 550 Output: Urine 500 / 1800 200 / 200 Other: Other Intake Source sips Weight 100.6 kg 100.6 kg Weight Measurement Method Standing Scale Patient Weight 09/13/20 06:59 Weight 100.6 kg
--- NOTE | 2020-09-12 17:00 | Communication Note ---
Date of Service: September 12, 2020 By CMS guidelines, a determination that the admission or continued stay is not medically necessary has been made by a member of the UR committee and a ph ysician for this hospital stay, therefore a Code 44 will be completed and the Inpatient admission will be changed to outpatient.
[2020-09-12] MEDS ORDERED: DIGOXIN 0.125 MG TAB PO SCH (21:00)
--- NOTE | 2020-09-13 08:36 | Discharge Summary ---
Date of Service September 13, 2020 Admission HPI Per Admitting Provider DICTATED BY: Shaw Gracia MD DATE OF ADMISSION: 09/11/2020 CHIEF COMPLAINT: Chest pain and shortness of breath. HISTORY OF PRESENT ILLNESS: A 69-year-old female with past medical history significant for COPD, obstructive sleep apnea, on CPAP, restrictive lung disease, chronic hypoxemia with respiratory failure, chronically on 3 liters oxygen at home,cor pulmonale, right-sided heart failure, pulmonary hypertension, chronic atrial fibrillation on Coumadin, history of [place], chronic kidney disease stage III, peripheral vascular disease,type 2 diabetes, hyperlipidemia, morbid obesity, vitamin B deficiency, gout arthropathy, tobacco use disorder, history of polymyalgia rheumatica. The patient presents with shortness of breath and chest pain starting yesterday afternoon around 1:00 p.m. She felt like someone was sitting on her chest and she called her niece around 7:00 p.m. and then was brought in here. In the ER, initially she was placed on nitro paste and that relieved her chest pain and chest x-ray showed some pulmonary congestion. When the patient went to the bathroom and came back, she was short of breath and she desaturated to 81%. Currently resting comfortably and hemodynamically stable. Her chest pain is improved. Denies any other complaints. She ambulates with a walker. Denies any headache, no dizziness, no blurred vision, no earache, no runny nose, no sore throat, no cough, no nausea, no vomiting, no abdominal pain. Normal bowel and bladder movements. Has chronic swelling in the lower extremity, which is same. The patient is feeling hungry and wants to eat. Admission Exam Per Admitting Provider GENERAL: The patient is obese, not in acute distress. VITAL SIGNS: Temperature 36.7, pulse 72, respiratory rate 20, blood pressure 124/70, oxygen was 99% to 100%, but when she ambulated, it dropped to 81%. HEENT: Pupils equal, round, and reactive to light. Oral mucosa somewhat dry. NECK: No JVD, no neck masses. CARDIOVASCULAR: S1, S2 heard, regular rate and rhythm, no murmur, no gallop. RESPIRATORY SYSTEM: Normal AP diameter. No accessory muscle use. No wheezing. Mild bibasilar crackles. ABDOMEN: Soft, bowel sounds were nontender. No distention. CENTRAL NERVOUS SYSTEM: Cranial nerves II-XII grossly intact, nonfocal. EXTREMITIES: Chronic lower extremity edema present, no erythema seen. Principal Diagnosis Acute exacerbation of congestive heart failure, atypical chest pain, NUVIA on CPAP, diabetes type 2, chronic atrial fibrillation, hypertension Discharge Exam Constitutional well developed, well nourished and + obese; no acute distress and not ill appearing Eyes PERRL, conjunctivae normal, anicteric sclerae ENMT external ear and nose normal, oropharynx normal Neck trachea midline, no thyromegaly Respiratory normal respiratory effort and + labored breathing; no respiratory distress Auscultation: + diminished lung sounds and + crackles (Minimal crackles at the bases) Cardiovascular Rate/Rhythm: + abnormal rate and + abnormal rhythm Heart Sounds: + murmur (1/6 to 2/6 ESM over precordium) Extremities: + edema (Trace edema bilaterally) Gastrointestinal (Abdomen) Inspection/Auscultation: abdomen normal to inspection; abdomen not distended Percussion/Palpation: abdomen soft; abdomen nontender Neurologic moves all extremities; no focal motor deficits Psychiatric A+Ox3, euthymic affect Lymphatic no cervical or axillary lymphadenopathy Discharge Data Allergies Allergy/AdvReac Type Severity Reaction Status Date / Time Penicillins Allergy Mild Unknown Verified 08/11/20 18:25 rofecoxib Allergy Unknown Unknown Verified 08/11/20 18:25 sulindac Allergy Unknown Unknown Verified 08/11/20 18:25 Consultations 09/10/20 23:55 ED Decision to Admit Stat 09/11/20 01:57 Consult Case Management - Discharge Planning Routine 09/11/20 08:00 Consult Cardiology Routine Hospital Course (1) Acute exacerbation of congestive heart failure: Acute on chronic R sided heart failure with preserved EF Presented with increasing shortness of breath and chest pain Chest x-ray confirmed cardiomegaly with mild congestive heart failure Has been receiving intravenous Lasix and clinically improving Echo on 08/12/20 showed ;moderate concentric left ventricular hypertrophy, LVEF 55 to 60%, Flattened interventricular septum consistent with RV pressure overload with moderate right ventricular chamber dilatation and moderate right ventricular hypokinesis. Moderate biatrial enlargement was noted as well as mild mitral regurgitation mild tricuspid regurgitation. Findings were consistent with severe pulmonary hypertension with estimated PA systolic pressure in excess of 70 mmHg. Appreciate cardiology input and recommendation We will monitor kidney function and electrolytes-unremarkable. Creatinine remains minimally high at 1.37 which was 1.27 on Has been feeling a lot better and would like to go home this afternoon (2) Atypical chest pain: No more chest pain since admission Serial troponins were unremarkable and EKG did not show any significant change Normal chest pain and no palpitation (3) Acute on chronic respiratory failure: Secondary to CHF Clinically better Continue current management including increasing oxygen administration Her respiratory status has been at baseline (4) NUVIA on CPAP: (5) Chronic atrial fibrillation: Rate is controlled now Has Supratherapeutic INR Coumadin is on hold Coumadin has been restarted from today (6) Diabetes mellitus, type II: SSI (7) HTN (hypertension): Blood pressure is controlled Total Time Total Time Spent Total Time Spent (In Minutes): 35 minutes Total Time Includes: Examination of the Patient, Discharge Planning, Medication Reconciliation and Communication With Other Providers Discharge Plan Discharge Items Patient Disposition: Home - Self-Care Reason For Visit: CHEST PAIN, SOB Discharge Diagnosis: Acute exacerbation of congestive heart failure, atypical chest pain, NUVIA on CPAP, diabetes type 2, chronic atrial fibrillation, hypertension Condition on Discharge: Good Activity: Resume your previous activity Non-emergency contact: Primary Care Provider Call non-emergency contact if: you have any medication questions and your symptoms worsen Follow-up/Referrals: Edison Mathis MD [Primary Care Provider] - 09/17/20 11:00 am (Your appointment is with Dr. Anthony) Diet: Carb Consistent or DM2 and Low Sodium (2gm) Fluids: 1500ml (6 cups) Addtl Attending Provider Instructions: Please take your medications regularly Have regular follow-up with your coagulation clinic Keep taking your oxygen Pending Studies at Discharge: No Stand-Alone Forms: My [employer], Smoking Cessation Medications and DC Order Prescriptions: Continued atorvastatin 40 mg Tablet 80 mg PO QAM RF: 0 nitroglycerin [Nitrostat] 0.4 mg Tablet, Sublingual 0.4 mg Sublingual DIRECTED PRN (Reason: Chest Pain) RF: 0 Lantus Solostar U-100 Insulin 100 unit/mL (3 mL) Insulin Pen 54 unit subcut DAILY RF: 0 torsemide 20 mg tablet 60 mg PO BID RF: 0 allopurinol 100 mg Tablet 200 mg PO QAM RF: 0 Humulin R Regular U-100 Insuln 100 unit/mL Solution 0 unit SUBCUT .SLIDINGSCALE RF: 0 digoxin 125 mcg (0.125 mg) Tablet 125 mcg PO 3XWK RF: 0 gabapentin 100 mg capsule 200 mg PO DAILY RF: 0 Breo Ellipta 100-25 mcg/dose Blister With Device 1 inh INHALATION QAM RF: 0 albuterol sulfate 2.5 mg /3 mL (0.083 %) solution for nebulization 2.5 mg inhalation BID PRN (Reason: Wheezing) RF: 0 citalopram 10 mg tablet 10 mg PO HS RF: 0 metoprolol succinate [Toprol XL] 100 mg tablet extended release 24 hr 150 mg PO DAILY RF: 0 acetaminophen [Tylenol] 325 mg Tablet 325 - 650 mg PO Q4 MDD 10 TABS/24 HOURS PRN (Reason: Fever Or Pain) RF: 0 cyanocobalamin (vitamin B-12) [Vitamin B-12] 1,000 mcg Tablet 1,000 mcg PO QAM RF: 0 warfarin 3 mg Tablet 1.5 mg PO PERKINS RF: 0 cholecalciferol (vitamin D3) [Vitamin D3] 50 mcg (2,000 unit) Capsule 2,000 unit PO QAM RF: 0 polyethylene glycol 3350 17 gram Powder In Packet 17 g PO DAILY PRN (Reason: Constipation) RF: 0 bisacodyl 10 mg Suppository 10 mg WA DAILY PRN (Reason: Constipation) RF: 0 docusate sodium 100 mg Capsule 100 mg PO BID PRN (Reason: Constipation) RF: 0 insulin aspart U-100 [Novolog Flexpen U-100 Insulin] 100 unit/mL (3 mL) insulin pen See Rx Instructions .ROUTE .COMPLEX RF: 0 Vitron-C 65 mg iron- 125 mg Tablet,Delayed Release (Dr/Ec) 1 tab PO QAM RF: 0 potassium chloride 10 mEq Tablet Extended Release 10 meq PO HS RF: 0 warfarin 3 mg Tablet 3 mg PO [id number]@1600 RF: 0 sennosides-docusate sodium [Senna-S] 8.6-50 mg Tablet 1 tab-cap PO DAILY PRN (Reason: Constipation) RF: 0 Fleet Enema 19-7 gram/118 mL Enema 118 ml WA DAILY PRN (Reason: Constipation) RF: 0 gabapentin [Neurontin] 100 mg capsule 300 mg PO HS RF: 0 Discharge Orders: Discharge Order (Routine); Ordered 09/12/20 Ordered By: Mamadou Santo Admission Data Admit Date/Time: 09/11/20 00:54 Attending Provider: Mamadou Santo Admit Provider: Shaw Gracia Primary Care Provider: Edison Mathis Other Providers: Shaw Gracia ; Johnathon Jackson ; Uli Toney ; Hakeem Fenton ; Erick Teran ; Liban Godwin ; Vinny Pierre ; Aurelia Hilario ; Monika Georges ; Bridger Menon Other Interventions: Discharge Summary Assessment (RN) Last Done: 09/12/20 17:29
== END 2020-09-12 18:24 | disposition home or self-care (01) | DRG 291 ==
LOC: ED 20:29 → 2S 09-11 00:54 → INTOOBSV 09-11 00:54 → 2S 09-11 01:36